=== PATIENT | female | born 1955 | race Caucasian/White ===

== ENCOUNTER 2023-01-25 12:43 | Outpatient (OUT) | payer MEDICARE, OTHER, SELFPAY ==
--- NOTE | 2023-01-25 12:57 | XR_ITS ---
The [address] [address] Patient Name: WHITNEY REYES MRN: [id number] date: 1955 Sex: F Assigned Patient Location: [facility] Current Patient Location: [facility] Accession/Order Number: [id number] Exam Date: 01/25/2023 13:08 Report Date: 01/26/2023 08:17 At the request of: JUANITO ROD Procedure: XR ribs LT min 3V w CXR1V EXAMINATION: XR ribs LT min 3V w CXR1V HISTORY: Left Rib Pain R07.81 ; pain under left breast for 2 months COMPARISON: No relevant comparison available. FINDINGS: LUNGS: No significant pulmonary parenchymal abnormalities. PLEURA: No pneumothorax, effusion, or pleural thickening. MEDIASTINUM: No visible mass or adenopathy. CARDIAC: No cardiomegaly or cardiac silhouette abnormality. RIBS: Normal. No significant arthropathy or acute abnormality. OTHER: Negative. IMPRESSION: 1. No acute cardiopulmonary process or suspicious findings. 2. No appreciable rib abnormality. Electronically authenticated by: LEXUS NEW Date: 01/26/2023 08:17
== END 2023-01-25 12:44 ==
PROVIDERS: PCP Family Medicine; Visit Provider Nurse Practitioner
DX: R07.81 Pleurodynia (principal)
CPT/HCPCS: 71101

== ENCOUNTER 2023-06-23 07:12 | Outpatient (OUT) | payer MEDICARE, OTHER, SELFPAY ==
--- NOTE | 2023-06-23 07:07 | MM_ITS ---
Patient Name WHITNEY REYES MR# Age Sex Date Time [id number] F 06/23/2023 07:08 At the Request Of DR. MURRAY OBANDO . RADIOLOGY REPORT PROCEDURE: MM TOMOSYNTHESIS SCREENING BI COMPARISON: MG MAMM SCREEN 3D [place] CAD, 06/22/2022. MG MAMM SCREEN 3D [place] CAD, 06/13/2021. INDICATIONS: screening mamm Calculator Name NCI Breast Cancer Risk Assessment Tool 5 Year Breast Cancer Risk 3.60% Lifetime Breast Cancer Risk 10.90% Personal Breast Cancer No Personal Ovarian Cancer No Treatments None Family Cancers Mother with breast cancer at age 62; Aunt-maternal with breast cancer at age ~72; Aunt-maternal with breast cancer at age ~73; Mother with uterine cancer at age 47; Father with lung cancer at age 63. LOCATION: The [facility] BREAST COMPOSITION: Scattered areas fibroglandular density. FINDINGS: DIAGNOSTIC CATEGORY 1--NEGATIVE. RIGHT BREAST: No significant suspicious finding. No significant change has occurred. LEFT BREAST: No significant suspicious finding. No significant change has occurred. RECOMMENDATIONS: ROUTINE MAMMOGRAM AND CLINICAL EVALUATION IN 12 MONTHS. PLEASE NOTE: A NORMAL MAMMOGRAM DOES NOT EXCLUDE THE POSSIBILITY OF BREAST CANCER. A CLINICALLY SUSPICIOUS PALPABLE LUMP SHOULD BE BIOPSIED. Dictated by: Attila Finnegan M.D. on 06/23/2023 at 11:03 Approved by: Attila Finnegan M.D. on 06/23/2023 at 11:06
--- NOTE | 2023-06-23 07:10 | US_ITS ---
The [address] [address] Patient Name: WHITNEY REYES MRN: [id number] date: 1955 Sex: F Assigned Patient Location: [facility] Current Patient Location: [facility] Accession/Order Number: [id number] Exam Date: 06/23/2023 07:30 Report Date: 06/23/2023 08:24 At the request of: JUANITO ROD Procedure: US abdomen complete EXAM: US abdomen complete HISTORY: . left upper quadrant pain, diarrhea . COMPARISON: None. TECHNIQUE: Grayscale and color imaging was performed FINDINGS: The body of the pancreas appears normal. The head and tail was obscured due to overlying bowel gas. The abdominal aorta is unremarkable. The liver is prominent in size measuring 19 cm. No masses are noted. Color-flow is noted in the portal and hepatic veins. Common bile duct measures 9 mm. The gallbladder is absent. Right kidney measures 9.5 x 6 x 5.3 cm and the left kidney 9.9 x 5.1 x 4.5 cm. Color-flow is noted involving both kidneys. No solid renal cortical masses or hydronephrosis is noted. The spleen is normal in size. No masses are noted. No fluid is noted within the abdomen. US/US abdomen complete IMPRESSION: 1. Absent gallbladder. 2. Common bile duct is dilated measuring 9 mm. Findings are most likely due to previous cholecystectomy. Clinical correlation is suggested. 3. The body of the pancreas appears normal. The head and tail was obscured due to overlying bowel gas. 4. The liver is prominent in size measuring 19 cm. No masses are noted. 5. The remainder of the abdomen was unremarkable. Electronically authenticated by: FRANCOIS RHODES Date: 06/23/2023 08:24
== END 2023-06-23 07:13 | disposition home or self-care (01) ==
LOC: MAMMO 07:12
PROVIDERS: PCP Family Medicine; Visit Provider Nurse Practitioner
DX: Z12.31 Encounter for screening mammogram for malignant neoplasm of breast (principal); R10.12 Left upper quadrant pain; R19.7 Diarrhea, unspecified; Z80.3 Family history of malignant neoplasm of breast; Z80.1 Family history of malignant neoplasm of trachea, bronchus and lung; Z80.8 Family history of malignant neoplasm of other organs or systems
CPT/HCPCS: 76700; 77063; 77067

== ENCOUNTER 2023-09-07 12:54 | Outpatient (OUT) | payer MEDICARE, OTHER, SELFPAY ==
--- NOTE | 2023-09-07 13:02 | XR_ITS ---
[address] [address] Patient Name: WHITNEY REYES MRN: [id number] date: 1955 Sex: F Assigned Patient Location: [facility] Current Patient Location: [facility] Accession/Order Number: [id number] Exam Date: 09/07/2023 13:18 Report Date: 09/07/2023 13:51 At the request of: JUANITO ROD Procedure: XR DEXA axial skeleton EXAMINATION: XR DEXA axial skeleton, 09/07/2023 1:18 PM EST HISTORY: E28.39 Ovarian Failure COMPARISON: 2011. TECHNIQUE: Dual-energy X-ray absorptiometry (DEXA) bone density study performed for the axial skeleton. HISTORY: E28.39 Ovarian Failure FINDINGS: Bone mineral density of the left forearm radius measures 0.688 g/sq cm. T score -04. WHO classification: Normal. Lowest bone mineral density right femoral neck measures 0.798 g/sq cm. T score -1.7. WHO classification: Osteopenia XR/XR DEXA axial skeleton IMPRESSION: Osteopenia. Moderate fracture risk Electronically authenticated by: FRANCOIS JEAN-BAPTISTE Date: 09/07/2023 13:51
--- OUTSIDE RECORDS SUMMARY | 2023-09-07 13:03 | XMS_ITS | CCD ---
Author Name Unknown Address [id number] [place] [address] Organization [facility] Care Team Providers Care Activities Concierge Name Role Phone Arpan Brock Unavailable Unavail able Arpan Brock Unavailable Unavail able LEON SOLARES Unavailable Unavailable LEON SOLARES Unavailable Unavailable Alexis Valencia Unavailable Unavailable Og Almeida Unavailable Unavailable Arpan Navarro Unavailable Unavailable Arpan Brock Unavailable Unavail able Arpan Brock Unavailable Unavail able LEON SOLARES Unavailable Unavailable LEON SOLARES Unavailable Unavailable Og Almeida Unavailable Unavailable LEON SOLARES Unavailable Unavailable Leon Solares Primary Care Provider [phone] AMILCAR YATES Admitting Unavailable AMILCAR YATES Attending Unavailable LEON SOLARES Primary Care Unavailable ZACHARY BOLES Referring Unavailab le LEON SOLARES Primary Care Unavailable AMILCAR YATES Attending Unavailable AMILCAR YATES Referring Unavailable LEON SOLARES Primary Care Unavailable Leon Solares MD Primary Care Provider [phone] IRVIN, DR LEON Jo Attending Unavailable IRVIN, DR LEON Jo Admitting Unavailable IRVIN, DR LEON Jo Primary Care Unavailable IRVIN, DR LEON Jo Consulting Unavailable JERILYN, DR FRANCOIS Lopez Consulting Unavailable IRVIN, DR LEON Jo Consulting Unavailable IRVIN, DR LEON Jo Attending Unavailable IRVIN, DR LEON Jo Admitting Unavailable IRVIN, DR LEON Jo Primary Care Unavailable JERILYN, DR FRANCOIS Lopez Consulting Unavailable IRVIN, DR LEON Jo Consulting Unavailable IRVIN, DR LEON Jo Attending Unavailable IRVIN, DR LEON Jo Admitting Unavailable IRVIN, DR LEON Jo Primary Care Unavailable SHAQ, DR LEXUS Rashid Consulting Unavailable IRVIN, DR LEON Jo Attending Unavailable IRVIN, DR LEON Jo Admitting Unavailable DR LEON SOLARES Primary Care Unavailable DR LEON SOLARES Consulting Unavailable MD Leon Solares Primary Care Provider MD Eder Gonzalez Attending Provider [phone] Eder Gonzalez Attending Unavailable Eder Gonzalez Admitting Unavailable Leon Solares Primary Care Unavailable Eder Gonzalez Unavailable LEON SOLARES Primary Care Physician Murray Ly Primary Care Physician [phone] Jaci Zelaya Primary Care Physician Leon Solares MD Primary Care Provider Murray Ly MD Primary Care Provider [phone] Garrett Dennison Attending Unavailable MD Garrett Dennison Admitting Unavailable LEON SOLARES Referring Unavailable Louise Owusu Attending Unavailable POONAM Owusu Admitting Unavailabl e LEON SOLARES Referring Unavailable Louise Owusu Attending Unavailable Murray Ly. Referring Unavailable POONAM Owusu Admitting Unavailabl e Garrett Dennison Attending Unavailable NONE, XXXX Referring Unavailable MD Garrett Dennison Admitting Unavailable Noris Solomon Attending Unavailable NathalieJaci Attending Unavailable NathalieJaci Attending Unavailable Nathalie, Jaci Abad Attending Unavailable Nathalie, Jaci L Attending Unavailable Nathalie Jaci L Referring Unavailable DO Juwan Mendez Admitting Unavailabl e Juwan Mendez Attending Unavailable Garrett Dennison Attending Unavailable Garrett Dennison Referring Unavailable Garrett Dennison Referring Unavailable Garrett Dennison Attending Unavailable MD Garrett Dennison Admitting Unavailable DO Jwuan Mendez Admitting Unavailabl e Juwan Mendez Referring Unavailable Juwan Mendez Attending Unavailable DO Juwan Mendez Admitting Unavailabl e Juwan Mendez Referring Unavailable Juwan Mendez Attending Unavailable Garrett Dennison Admitting Unavailable Garrett Dennison Attending Unavailable Nathalie, Jaci L Admitting Unavailable Nathalie, Jaci L Attending Unavailable Nathalie, Jaci L Admitting Unavailable Nathalie, Jaci L Attending Unavailable Nathalie, Jaci L Referring Unavailable Juwan Mendez Attending Unavailable Juwan Mendez Admitting Unavailable Garrett Dennison Attending Unavailable Eder Gonzalez Referring Unavailable MD Garrett Dennison Admitting Unavailable Jaci Zelaya Referring Unavailable Louise Owusu Attending Unavailable Louise Owusu Admitting Unavailable SELF, SELF Referring Unavailable SOLARES, LEON Primary Care Unavailable FOSTER, BRAULIO Attending Unavailable SOLARES, LEON Primary Care Unavailable FOSTER, BRAULIO Attending Unavailable FOSTER, BRAULIO Referring Unavailable JOSE LUIS, RONI Referring Unavailable ROSS, MURRAY Primary Care Unavailable JOSE LUIS, RONI Attending Unavailable ROSS, MURRAY Primary Care Unavailable JOSE LUIS, RONI Attending Unavailable JOSE LUIS, RONI Referring Unavailable SOLARES, LEON Primary Care Unavailable FOSTER, BRAULIO Referring Unavailable TANISHA, BRAULIO Admitting Unavailable TANISHA, BRAULIO Attending Unavailable SELF, SELF Referring Unavailable SOLARES, LEON Primary Care Unavailable FOSTER, BRAULIO Attending Unavailable SOLARES, LEON Primary Care Unavailable FOSTER, BRAULIO Attending Unavailable FOSTER, BRAULIO Referring Unavailable RAMAN SILVERIO Attending Unavailable JOSE LUIS, RONI Referring Unavailable PARRISH LOYD Attending Unavailable JOSE LUIS, RONI Referring Unavailable Allergies Allergy Classification Reported Allergen(s) Allergy Type Date of Onset Reaction(s) Facility (20 sources) amoxicillin; Translations: [amoxicillin] Drug Allergy 6 Swelling, Edema of face (finding) [facility] Repository (3 sources) meloxicam Drug Allergy 3 Diarrhea, Dyspepsia [facility] Medications Current Medications Medication Drug Class(es) Dates Sig (Normalized) Sig (Original) acetaminophen 325 mg oral tablet (20 sources) Start: 07-26-2023 take 2 tablets by mouth every four hours as needed Acetaminophen 325 MG tablet Take 2 tablets by mouth every 4 hours as needed for Mild Pain. 50 tablet 1 07/26/2023 Active Start: 07-26-2023 End: 07-27-2023 take 1 tablet by mouth every six hours acetaminophen (TYLENOL) tablet 1,000 mg Start: 11-05-2022 take 2 capsules by m outh every four hours as needed for pain Tylenol 325 mg oral capsule 650 mg = 2 cap(s), Oral, q4hr, PRN as needed for pain, Refills(s) 0 Start Date: 11/05/22 Status: Ordered Start: 01-16-2020 End: 06-28-2020 take 2 tablets by mouth every six hours as needed acetaminophen (TYLENOL) 500 MG tablet Take 1,000 mg by mouth every 6 hours as needed 0 01/16/2020 06/28/2020 Discontinued (Stop Taking at Discharge) End: 07-26-2023 take 1 tablet by mouth every four hours acetaminophen 325 MG tablet Take 1 tablet by mouth every 4 hours. 0 07/26/2023 Discontinued (Stop Taking at Discharge) acetaminophen 325 mg / oxyCODONE hydrochloride 7.5 mg oral tablet (3 sources) Opioid Agonist Start: 06-28-2020 End: 07-12-2020 take 1 tablet by mouth every six hours as needed for pain oxyCODONE-acetaminophen (PERCOCET) 7.5-325 MG per tablet Indications: Post-op pain Take 1 tablet by mouth every 6 hours as needed for Pain for up to 14 days. 40 tablet 0 06/28/2020 07/12/2020 Active Start: 06-27-2020 take 1 tablet by killian th every four hours as needed for pain 1 tablet, Oral, EVERY 4 HOURS PRN, Pain Moderate (4-6), Starting Kaylene 06/27/20 at 1414 Maximum dose of acetaminophen is 4000 mg from all sources in 24 hours. alendronic acid 70 mg oral tablet (1 source) Bisphosphonate Start: 08-03-2023 Fosamax 70 mg Tab 70 mg = 1 tab(s), Oral, q7day, # 12 tab(s), Refills(s) 3, Pharmacy: [facility]/pharmacy #[id number], 160, cm, 07/23/23 9:03:00 EST, Height/Length Dosing, 85.7, kg, 07/23/23 9:03:00 EST, Weight Dosing Start Date: 08/03/23 Status: Ordered alginic acid 200 mg / calcium carbonate 80 mg / magnesium trisilicate 20 mg / sodium bicarbonate 70 mg oral tablet (1 source) Start: 06-28-2020 calcium carbon ate (TUMS) chewable tablet 500 mg Aspir-81 (1 source) aspirin 81 mg delayed release oral tablet (20 sources) Platelet Aggregation Inhibitor, Nonsteroidal Anti-inflammatory Drug Start: 07-26-2023 End: 07-27-[address] Asp[address] tablet Take 1 tab twice a day for 30 days. This medication is for blood clot prevention. 60 tablet 0 07/26/2023 Active Start: 11-05-2022 take 1 tablet by killian th once daily aspirin 81 mg Oral EC Tab 81 mg = 1 tab(s), Oral, Daily, Refills(s) 0 Start Date: 11/05/22 Status: Ordered Start: 06-27-2020 take 81 mg by mouth once daily 81 mg, Oral, DAILY, First dose on Wed06/27/20 at 1430 Start: 09-28-2018 take 81 mg by mouth once daily Aspirin Active 81 MG PO Daily September 28, 2018 12:00am take 1 tablet by killian th every twenty-four hours Alfred Aspirin 325 MG 1 tablet Orally Once a day Active take 1 tablet by killian th once daily aspirin 81 MG tablet Take 81 mg by mouth daily 0 Active aspirin/placebo, M-1657, 81 mg tablet (5 sources) take 1 tablet by mouth once daily aspirin/placebo, M-1657, 81 mg tablet Take 1 tablet by mouth daily. 0 Active azelastine hydrochloride 0.206 mg/actuat metered dose nasal spray (4 sources) Histamine-1 Receptor Antagonist Start: 020 2 spray, NOT APPLICABLE, 2 TIMES DAILY, First dose on Wed06/27/20 at 1430 azelastine HCl 0 .15 % SOLN 2 sprays by NOT APPLICABLE route 2 times daily 0 Active Calcium (1 source) Phosphate Binder, Calcium Calcium Active calcium carbonate 1500 mg oral tablet (19 sources) Start: 11-05-2022 calcium (as carbonate) 600 mg oral tablet 1,200 mg = 2 tab(s), Oral, Daily, Refills(s) 0 Start Date: 11/05/22 Status: Ordered Start: 06-27-2020 take 500 mg by mouth once omero y 500 mg, Oral, DAILY, First dose on Wed06/27/20 at 1430 calcium carbonat e (OSCAL) 500 MG TABS tablet Take 1,200 mg by mouth daily 0 Active calcium carbonat e (OSCAL) 500 MG TABS tablet Take 1,200 mg by mouth daily 0 Active calcium carbonate 1500 mg / cholecalciferol 200 unt oral capsule (1 source) Vitamin D Start: 09-28-2018 take 1 tablet by mouth once daily Calcium Carbonate-Vitamin D3 (Calcium 600 + D(3)) 600 mg calcium- 200 unit Capsule Active 1 TAB PO Daily September 28, 2018 12:00am Calcium Carbonate-Vit D-Min (CALCIUM 1200 PO) (7 sources) Calcium Carbonat e-Vit D-Min (CALCIUM 1200 PO) Take by mouth 2 times daily. 0 Active Calcium Carbonat e-Vit D-Min (CALCIUM 1200 PO) Take by mouth. 0 Active celecoxib 200 mg oral capsule (20 sources) Nonsteroidal Anti-inflammatory Drug Start: 11-05-2022 End: 09-06-2023 take 1 capsule by mouth twice daily Celecoxib 200 MG capsule Take 1 capsule by mouth 2 times daily. 84 capsule 0 07/26/2023 09/06/2023 Active Start: 11-05-2022 End: 06-28-2020 take 1 capsule by mouth twice daily celecoxib 200 mg Cap 200 mg = 1 cap(s), Oral, BID, Refills(s) 0 Start Date: 11/05/22 Status: Ordered Start: 09-28-2018 take 200 mg by mouth once omero y Celecoxib Active 200 MG PO Daily September 28, 2018 12:00am End: 07-26-2023 take 1 capsule by mouth twice daily celecoxib 200 MG capsule Take 1 capsule by mouth 2 times daily. 0 07/26/2023 Discontinued (Stop Taking at Discharge) cephalexin 500 mg oral capsule (1 source) Cephalosporin Antibacterial Start: 07-26-2023 End: 08-02-2023 take 1 capsule by mouth every eight hours cephALEXin 500 MG capsule Take 1 capsule by mouth every 8 hours for 7 days. Start 6 hours after last dose of iv antibiotics. 21 capsule 0 07/26/2023 08/02/2023 Active Cranberry preparation (20 sources) Non-Standardized Food Allergenic Extract, Non-Standardized Plant Allergenic Extract Start: 11-05-2022 cranberry See Instructions, Refill(s) 0, 500 mg daily Start Date: 11/05/22 Status: Ordered End: 07-26-2023 CRANBERRY PO Take by mouth d aily. 0 07/26/2023 Discontinued (Stop Taking at Discharge) Cranberry Active CRANBERRY PO Richar e by mouth. 0 Active Cranberry 500 MG TABS Take by mouth 0 Active cyclobenzaprine hydrochloride 10 mg oral tablet (6 sources) Muscle Relaxant Start: 06-22-2023 take 1 tablet by mouth three times daily as needed for muscle spasms cyclobenzaprine 10 mg Tab 10 mg = 1 tab(s), Oral, TID, PRN for spasm, # 30 tab(s), Refills(s) 0, Pharmacy: [facility]/pharmacy #[id number], 160, cm, 06/22/23 9:45:00 EST, Height/Length Dosing, 88.5, kg, 06/22/23 9:45:00 EST, Weight Dosing Start Date: 06/22/23 Status: Ordered Start: 01-22-2023 take 1 tablet by killian three times daily as needed for muscle spasms cyclobenzaprine 10 mg Tab 10 mg = 1 tab(s), Oral, TID, PRN for spasm, # 30 tab(s), Refills(s) 0, Pharmacy: [facility]/pharmacy #[id number], 160, cm, 01/22/23 10:29:00 EDT, Height/Length Dosing, 98.8, kg, 01/22/23 10:29:00 EDT, Weight Dosing Start Date: 01/22/23 Status: Ordered diphenhydrAMINE hydrochloride 25 mg oral tablet (8 sources) Histamine-1 Receptor Antagonist take 1 tablet by mouth at bedtime as needed diphenhydrAMINE 25 MG tablet Take 1 tablet by mouth at bedtime as needed. 0 Active DiphenhydrAMINE Citrate Active docusate sodium 100 mg oral capsule (20 sources) Start: 07-26-2023 End: 07-27-2023 take 1 capsule by mouth twice daily Docusate 100 MG capsule Take 1 capsule by mouth 2 times daily. 60 capsule 0 07/26/2023 Active Start: 11-05-2022 docusate See I nstructions, twice daily, Refills(s) 0 Start Date: 11/05/22 Status: Ordered Start: 06-27-2020 End: 07-26-2023 take 100 mg by mouth once daily 100 mg, Oral, DAILY, First dose on Kaylene 06/27/20 at 1430 Do not crush or break. Estradiol (20 sources) Estrogen Start: 11-05-2022 estradiol See Instructions, once weekly, Refills(s) 0 Start Date: 11/05/22 Status: Ordered Start: 06-19-2020 0.5 g, Vaginal , TWICE WEEKLY (Once per day on Mon Wed), First dose on Kaylene 06/27/20 at 1430 estradiol 0.1 MG /GM cream Insert vaginally once a week. 0 Active take 1 tablet by killian th every twenty-four hours Estradiol 1 MG 1 tablet Orally Once a day Active 2 ml famotidine 10 mg/ml injection (1 source) Histamine-2 Receptor Antagonist Start: 06-28-2020 famotidine (PEPCID) injection 20 mg 72 hr fentaNYL 0.025 mg/hr transdermal system (3 sources) Opioid Agonist Start: 06-27-2020 End: 07-14-2020 fentaNYL (DURAGESIC) 25 MCG/HR Indications: Post-op pain Place 1 patch onto the skin every 72 hours for 14 days. 5 patch 0 06/30/2020 07/14/2020 Active gabapentin 300 mg oral capsule (6 sources) Anti-epileptic Agent Start: 04-08-2023 take 1 capsule by mouth once at bedtime, then take 2 capsules by mouth three times daily gabapentin 300 mg Cap See Instructions, 1 cap(s) Oral Bedtime, increase per titration schedule up to 2 caps TID, # 180 cap(s), Refills(s) 0, Pharmacy: [facility]/pharmacy #[id number], 160, cm, 04/02/23 9:46:00 EDT, Height/Length Dosing, 95.7, kg, 02/19/23 10:50:00 EDT, Weight Dosing Start Date: 04/08/23 Status: Ordered Start: 01-19-2020 take 300 mg by mouth three times daily 300 mg, Oral, 3 TIMES DAILY, First dose on Kaylene 06/27/20 at 1430 take 1 capsule by mo [facility] three times daily glucosamine sulfate 500 mg oral tablet (1 source) Start: 09-28-2018 Glucosamine Alcazar lfate (Glucosamine) 500 mg Tablet Active 1600 MG PO Daily September 28, 2018 12:00am 500 ml glucose 50 mg/ml / potassium chloride 0.02 meq/ml / sodium chloride 4.5 mg/ml injection (1 source) Start: 06-27-2020 Intravenous, a t 100 mL/hr, CONTINUOUS, Starting [facility] 06/27/20 at 1430, Post-op loperamide hydrochloride 2 mg oral capsule (2 sources) Opioid Agonist Start: 08-08-2019 take 1 capsule by mouth every twelve hours Start: 07-17-2019 take 1 capsule by mouth once d aily in the morning loratadine 10 mg oral tablet (11 sources) Start: 11-05-2022 take 10 mg by mouth once daily loratadine 10 mg, Oral, Daily, Refills(s) 0 Start Date: 11/05/22 Status: Ordered Magnesium (1 source) Magnesium 400 MG tablet Take by mouth daily. 0 Active magnesium oxide 400 mg oral tablet (15 sources) Start: 11-05-2022 magnesium oxid e 400 mg Tab See Instructions, once daily, Refills(s) 0 Start Date: 11/05/22 Status: Ordered Melatonin (20 sources) Start: 11-05-2022 melatonin See Instructions, nightly, Refills(s) 0 Start Date: 11/05/22 Status: Ordered Melatonin 10 MG tablet Take by mouth. 0 Active End: 06-28-2020 take 1 capsule by mouth once daily melatonin 10 MG CAPS capsule Take 10 mg by mouth nightly 0 06/28/2020 Discontinued (Stop Taking at Discharge) morphine (PF) injection 2 mg (1 source) Start: 06-27-2020 morphine (PF) injection 2 mg omeprazole 20 mg delayed release oral capsule (2 sources) Proton Pump Inhibitor Start: 07-26-2023 take 1 capsule by mouth once daily omeprazole [address] capsule Take 1 capsule by mouth daily. 30 capsule 0 07/26/2023 Active potassium 99 mg extended release oral tablet (1 source) Potassium 99 MG tablet Take by mouth daily. 0 Active potassium chloride 1.33 meq oral tablet (15 sources) Start: 11-05-2022 take 1 tablet by mouth once daily potassium chloride 99 mg oral tablet 99 mg = 1 tab(s), Oral, Daily, # 100 tab(s), Refills(s) 0 Start Date: 11/05/22 Status: Ordered Promethazine (1 source) Phenothiazine Start: 06-27-2020 promethazine (PHENERGAN) tablet 12.5 mg 3 ml sodium chloride 9 mg/ml injection (2 sources) Start: 06-27-2020 10 mL, Intravenous, EVERY 12 HOURS SCHEDULED (2 times per day), First dose on Kaylene 06/27/20 at 2100, Post-op Start: 06-27-2020 take 10 mL intravenous route o nce 10 mL, Intravenous, PRN, Line Care, Starting Kaylene 06/27/20 at 1414 After every IV line use Post-op sulfamethoxazole 800 mg / trimethoprim 160 mg oral tablet (3 sources) Dihydrofolate Reductase Inhibitor Antibacterial, Sulfonamide Antimicrobial Start: 06-28-2020 End: 07-05-2020 take 1 tablet by mouth every twelve hours sulfamethoxazole-trimethoprim (BACTRIM DS;SEPTRA DS) 800-160 MG per tablet Take 1 tablet by mouth every 12 hours for 7 days 14 tablet 0 06/28/2020 07/05/2020 Active therapeutic multivitamin-[employer] field examiner als tablet (2 sources) Start: 07-26-2023 take 1 tablet by mouth at bedtime therapeutic multivitamin-minerals tablet Take 1 tablet by mouth at bedtime. 30 tablet 0 07/26/2023 Active tiZANidine 2 mg oral tablet (4 sources) Central alpha-2 Adrenergic Agonist Start: 06-27-2020 take 2 mg by mouth once daily 2 mg, Oral, NIGHTLY, First dose on Kaylene 06/27/20 at 2100 Completed/Discontinued Medications Medication Drug Class(es) Dates Sig (Normalized) Sig (Original) bisacodyl 10 mg rectal suppository (1 source) Stimulant Laxative Start: 07-26-2023 End: 07-27-2023 bisacodyl (DULCOLAX) suppository 10 mg calcium chloride 0.0014 meq/ml / potassium chloride 0.004 meq/ml / sodium chloride 0.103 meq/ml / sodium lactate 0.028 meq/ml injectable solution (5 sources) Start: 07-26-2023 End: 07-27-2023 Lactated ringers IV solution 500 mL Start: 06-27-2020 End: 06-27-2020 lactated ringers infusion ceFAZolin 2000 mg injection (1 source) Cephalosporin Antibacterial Start: 07-26-2023 End: 07-27-2023 take 2 g intravenously every eight hours ceFAZolin (ANCEF) 2 g in dextrose 100 mL premix IVPB chondroitin sulfates 400 mg / glucosamine sulfate 500 mg oral tablet (2 sources) End: 06-28-2020 take 1 tablet by mouth once daily glucosamine-chond roitin 500-400 MG tablet Take 1 tablet by mouth daily 0 06/28/2020 Discontinued (Stop Taking at Discharge) dexamethasone phosphate 10 mg/ml injectable solution (1 source) Corticosteroid Start: 07-27-2023 End: 07-27-2023 take 10 mg intravenously every twenty-four hours dexAMETHasone (DECADRON) injection 10 mg docusate sodium 50 mg / sennosides, correction 8.6 mg oral tablet (2 sources) Start: 07-26-2023 End: 07-27-2023 senna-docusate (SENOKOT-S) 8.6-50 MG per tablet 2 tablet Start: 06-27-2020 take 1 tablet by killian th twice daily 1 tablet, Oral, 2 TIMES DAILY, First dose on Kaylene 06/27/20 at 1430, Post-op 100 ml gentamicin 0.8 mg/ml injection (1 source) Start: 06-27-2020 End: 06-27-2020 gentamicin (GARAMYCIN) IVPB 80 mg 1 ml HYDROmorphone hydrochloride 1 mg/ml cartridge (2 sources) Opioid Agonist Start: 07-26-2023 End: 07-27-2023 take 0.5 mg intravenously every four hours as needed HYDROmorphone (DILAUDID) injection 0.5 mg Start: 06-27-2020 End: 06-27-2020 HYDROmorphone (DILAUDID) inj ection 0.5 mg 1 ml ketorolac tromethamine 30 mg/ml cartridge (1 source) Nonsteroidal Anti-inflammatory Drug, Cyclooxygenase Inhibitor Start: 07-26-2023 End: 07-27-2023 Ketorolac (TORADOL) injection 7.5 mg 10 ml lidocaine hydrochloride 10 mg/ml injection (2 sources) Antiarrhythmic, Amide Local Anesthetic Start: 07-15-2022 End: 07-15-2022 lidocaine 1% (PF) (XYLOCAINE MPF) 1 % injection 5 mL meloxicam 15 mg oral tablet (4 sources) Nonsteroidal Anti-inflammatory Drug Start: 03-03-2023 End: 07-26-2023 take 1 tablet by mouth once daily at mealtime Meloxicam 15 MG tablet Take 1 tablet by mouth daily. Take with food 30 tablet 1 03/03/2023 07/26/2023 Discontinued (Stop Taking at Discharge) 1 ml meperidine hydrochloride 25 mg/ml cartridge (1 source) Opioid Agonist Start: 06-27-2020 End: 06-27-2020 meperidine (DEMEROL) injection 12.5 mg metoprolol tartrate 25 mg oral tablet (20 sources) beta-Adrenergic Johnathon Start: 08-18-2023 take 0.5 tablet by mouth twice daily Lopressor 25 mg oral tablet 12.5 mg = 0.5 tab(s), Oral, BID, TAKE 1/2 TABLET BY MOUTH TWICE DAILY, # 90 tab(s), Refills(s) 1, Pharmacy: [facility], 160, cm, 07/23/23 9:03:00 EST, Height/Length Dosing, 85.7, kg, 07/23/23 9:03:00 EST, Weight Dosing Start Date: 08/18/23 Status: Ordered Start: 11-05-2022 take 0.5 tablet by m outh twice daily Lopressor 25 mg oral tablet TAKE 1/2 TABLET BY MOUTH TWICE DAILY Start Date: 11/05/22 Status: Ordered Start: 06-05-2022 End: 07-27-2023 take 1 tablet by mouth twice daily, then take 0.5 tablet by mouth twice daily metoprolol 25 MG tab regular release Take 1 tablet by mouth 2 times daily. Takes half of tablet twice a day 0 06/05/2022 Active Start: 06-27-2020 take 12.5 mg by mout h twice daily 12.5 mg, Oral, 2 TIMES DAILY, First dose on Kaylene 06/27/20 at 1430 Do not crush or chew. Start: 09-28-2018 take 12.5 mg by mout h twice daily Metoprolol Tartrate Active 12.5 MG PO Twice daily September 28, 2018 12:00am Metoprolol Succi jose m Active metoprolol succi jose m (TOPROL XL) 25 MG extended release tablet Take 12.5 mg by mouth 2 times daily 0 Active 2 ml ondansetron 2 mg/ml injection (1 source) Serotonin-3 Receptor Antagonist Start: 07-26-2023 End: 07-27-2023 take 4 mg intravenously every four hours as needed Ondansetron 4mg/2ml (ZOFRAN) injection 4 mg oxyCODONE hydrochloride 5 mg oral tablet (2 sources) Opioid Agonist Start: 07-26-2023 End: 07-27-2023 take 5-10 mg by mouth every four hours as needed oxyCODONE (ROXICODONE) tablet 5-10 mg Start: 07-26-2023 End: 08-02-2023 take 1-2 tablets by mouth every four to six hours as needed for pain oxyCODONE 5 MG tablet Indications: Acute postoperative pain of left knee Take 1-2 tabs po q 4-6 hours prn pain. Wean as tolerated. 30 tablet 0 07/26/2023 08/02/2023 Active pantoprazole 40 mg delayed release oral tablet (1 source) Proton Pump Inhibitor Start: 07-26-2023 End: 07-27-2023 take 40 mg by mouth once daily 40 mg, Oral, DAILY EARLY EVENING, First dose on 07/26/23 at 1800, Until Discontinued Swallow whole; do not crush or chew. Indications: Inpt Stress Ulcer Prophylaxis pregabalin 50 mg oral capsule (7 sources) Start: 02-19-2023 End: 07-27-2023 take 1 capsule by mouth at bedtime Pregabalin 50 MG capsule Take 1 capsule by mouth at bedtime. 0 02/19/2023 07/27/2023 Discontinued (Stop Taking at Discharge) ROPivacaine (NAROPIN) 0.2% 1,500 mg, On-Q Pump 1 Each (1 source) Start: 07-26-2023 End: 07-27-2023 ROPivacaine (NAROPIN) 0.2% 1,500 mg, On-Q Pump 1 Each ROPivacaine (NAROPIN) 1 % 400 mg, EPINEPHrine PF (ADRENALIN) 1 MG/ML 1 mg, Ketorolac (TORADOL) 30 MG/ML 30 mg, cloNIDine 100 MCG/ML 183 mcg, Sodium chloride 0.9% 45 mL in viaflex container 1 Each 88.83 mL (total volume) (1 source) Start: 07-26-2023 End: 07-26-2023 ROPivacaine (NAROPIN) 1 % 400 mg, EPINEPHrine PF (ADRENALIN) 1 MG/ML 1 mg, Ketorolac (TORADOL) 30 MG/ML 30 mg, cloNIDine 100 MCG/ML 183 mcg, Sodium chloride 0.9% 45 mL in viaflex container 1 Each 88.83 mL (total volume) sodium phosphate, dibasic 35.5 mg/ml / sodium phosphate, monobasic 96.4 mg/ml enema (1 source) Start: 07-26-2023 End: 07-27-2023 sodium phosphate w/sodium biphosphate (FLEETS) enema 1 enema tranexamic acid 650 mg oral tablet (1 source) Antifibrinolytic Agent Start: 07-26-2023 End: 07-26-2023 tranexamic acid (LYSTEDA) tablet 1,950 mg 1 ml triamcinolone acetonide 40 mg/ml prefilled syringe (2 sources) Corticosteroid Start: 07-15-2022 End: 07-15-2022 triamcinolone (KENALOG-40) injection 1 mL vancomycin (VANCOCIN) 1,500 mg in dextrose 5 % 500 mL IVPB (1 source) Start: 06-27-2020 End: 06-28-2020 1,500 mg, Intravenous, EVERY 12 HOURS, 2 doses, First dose on Wed06/27/20 at 2100, Last dose on Wed06/28/20 at 0900, Post-op zolpidem tartrate 5 mg oral tablet (1 source) gamma-Aminobutyric Acid-ergic Agonist Start: 07-26-2023 End: 07-27-2023 Zolpidem (AMBIEN) tablet 5 mg Problems Active Problems Problem Classification Problem Date Documented Da te Episodic/Chronic Abdominal pain (4 sources) Left upper quadrant pain 06-22-2023 Episodic Complication of device; implant or graft (8 sources) Joint pain; Translations: [Pain due to internal orthopedic prosthetic devices, implants and grafts, sequela] Onset: 3 Episodic Diabetes mellitus without complication (6 sources) Prediabetes; Translations: [Prediabetes] Onset: 9 06-20-2020 Episodic Diseases of white blood cells (3 sources) Leukocytosis 07-12-2023 Chronic Disorders of lipid metabolism (7 sources) Pure hypercholesterolemia; Translations: [Pure hypercholesterolemia, unspecified] Onset: 9 06-20-2020 Chronic Diverticulosis and diverticulitis (1 source) Diverticular disease of colon; Translations: [Diverticulosis of intestine, part unspecified, without perforation or abscess without bleeding] Chronic Essential hypertension (20 sources) Essential hypertension; Translations: [Essential (primary) hypertension] Onset: 9 06-20-2020 Chronic Genitourinary symptoms and ill-defined conditions (2 sources) Urge incontinence of urine; Translations: [Urge incontinence] Onset: 0 06-24-2020 Chronic Intestinal infection (1 source) Clostridial enteric disease; Translations: [Enterocolitis due to Clostridium difficile, not specified as recurrent] Episodic Malaise and fatigue (4 sources) Other fatigue; Translations: [OTHER FATIGUE] Onset: 3 Episodic Menopausal disorders (5 sources) Menopausal and postmenopausal disorders; Translations: [Atrophy of vagina] Onset: 9 06-24-2020 Chronic Noninfectious gastroenteritis (1 source) Lymphocytic colitis; Translations: [Lymphocytic colitis] Chronic Noninfectious gastroenteritis (8 sources) Colitis; Translations: [Noninfectious gastroenteritis] Onset: 8 06-24-2020 Episodic Osteoarthritis (4 sources) Osteoarthritis of knee; Translations: [Osteoarthritis] Onset: 9 06-24-2020 Chronic Osteoporosis (2 sources) Senile osteoporosis; Translations: [Age-related osteoporosis without current pathological fracture] Onset: 9 06-24-2020 Chronic Other acquired deformities (5 sources) Lumbar spondylolisthesis; Translations: [Spondylolisthesis, lumbar region] Onset: 9 06-24-2020 Other aftercare (3 sources) 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; 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)] Onset: 3 07-26-2023 Episodic Other connective tissue disease (3 sources) History of revision of left total knee arthroplasty; Translations: [Presence of left artificial knee joint] Onset: 3 07-26-2023 Chronic Other connective tissue disease (2 sources) Presence of left artificial knee joint; Translations: [Presence of left artificial knee joint] Onset: 4 Chronic Other connective tissue disease (1 source) Pain in left leg; Translations: [PAIN IN LEFT LEG] Onset: 3 Episodic Other connective tissue disease (1 source) Arthrodesis status Episodic Other connective tissue disease (15 sources) H/O: osteoarthritis 11-05-2022 Episodic Other connective tissue disease (9 sources) Spasm 01-22-2023 Episodic Other connective tissue disease (2 sources) Synovial plica syndrome of left knee; Translations: [Plica syndrome, left knee] Onset: 9 06-24-2020 Other gastrointestinal disorders (1 source) Diarrhea; Translations: [Diarrhea, unspecified] Episodic Other gastrointestinal disorders (15 sources) History of gastroesophageal reflux disease 11-05-2022 Episodic Other gastrointestinal disorders (4 sources) Liquid stool 06-22-2023 Episodic Other lower respiratory disease (9 sources) Rib pain 01-22-2023 Episodic Other nervous system disorders (3 sources) Other acute postprocedural pain; Translations: [Pain in joint, lower leg] Onset: 3 07-26-2023 Episodic Other non-traumatic joint disorders (4 sources) Pain in left knee; Translations: [Pain in joint, lower leg] Onset: 3 02-18-2023 Episodic Other nutritional; endocrine; and metabolic disorders (2 sources) Obesity; Translations: [Class 2 obesity in adult] Onset: 0 06-24-2020 Chronic Other nutritional; endocrine; and metabolic disorders (1 source) Metabolic syndrome; Translations: [METABOLIC SYNDROME] Onset: 3 Chronic Other nutritional; endocrine; and metabolic disorders (3 sources) Body mass index 30+ - obesity 07-12-2023 Chronic Other nutritional; endocrine; and metabolic disorders (3 sources) Obesity caused by energy imbalance; Translations: [Other obesity due to excess calories] Onset: 3 07-26-2023 Chronic Other screening for suspected conditions (not mental disorders or infectious disease) (9 sources) Encounter for screening mammogram for malignant neoplasm of breast; Translations: [Abnormal finding of blood chemistry, unspecified] Onset: 2 Episodic Residual codes; unclassified (1 source) Pain; Translations: [Pain] Episodic Spondylosis; intervertebral disc disorders; other back problems (7 sources) Spondylosis without myelopathy or radiculopathy, lumbar region; Translations: [Inflammation of sacroiliac joint] Onset: 3 Chronic Spondylosis; intervertebral disc disorders; other back problems (20 sources) Dorsalgia, unspecified; Translations: [Intervertebral disc disorders with radiculopathy, lumbar region] Onset: 3 Episodic Unclassified (1 source) Preprocedural examination done; Translations: [Pre-op examination] Unclassified (2 sources) Long-term current use of aspirin; Translations: [longterm (current) use of aspirin] Onset: 9 06-24-2020 Unclassified (6 sources) 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; Translations: [Encounter for screening for malignant neoplasm] Onset: 9 06-24-2020 Unclassified (1 source) Low back pain, unspecified; Translations: [Low back pain, unspecified] Onset: 3 Past or Other Problems Problem Classification Problem Date Documented Da te Episodic/Chronic Fever of unknown origin (2 sources) Fever; Translations: [Fever, unspecified] Onset: 02-16-2020 06-24-2020 Episodic Genitourinary symptoms and ill-defined conditions (2 sources) Urgent desire to urinate; Translations: [Urinary urgency] Onset: 02-13-2020 06-24-2020 Episodic Joint disorders and dislocations; trauma-related (2 sources) Tear of medial meniscus of knee; Translations: [Other tear of medial meniscus, current injury, left knee, initial encounter] Onset: 12-21-2018 06-24-2020 Episodic Other connective tissue disease (2 sources) Pain in left lower limb; Translations: [Pain in left leg] Onset: 12-28-2018 06-24-2020 Episodic Other gastrointestinal disorders (2 sources) Disorder of digestive tract; Translations: [Acquired absence of other specified parts of digestive tract] Onset: 12-21-2018 06-24-2020 Episodic Other nervous system disorders (1 source) Postoperative pain ; Translations: [Post-op pain] Episodic Residual codes; unclassified (2 sources) Family history of breast cancer; Translations: [Family history of malignant neoplasm of breast] Onset: 06-13-2019 06-24-2020 Episodic Residual codes; unclassified (2 sources) Family history: neoplasm - trachea/bronchus/tali ng; Translations: [Family history of malignant neoplasm of trachea, bronchus and lung] Onset: 06-13-2019 06-24-2020 Episodic Residual codes; unclassified (1 source) Family history of malignant neoplasm of breast; Translations: [FAMILY HX MALIG NEOPLASM OF BREAST] Onset: 06-27-2022 Episodic Residual codes; unclassified (1 source) Family history of malignant neoplasm of trachea, bronchus and lung; Translations: [FAM HX MALIG NEOPLSM TRACH BRON LNG] Onset: 06-27-2022 Episodic Residual codes; unclassified (1 source) Family history of malignant neoplasm of other organs or systems; Translations: [FAM HX MALIG NEOPLASM OTH ORGN/SYS] Onset: 06-27-2022 Episodic Urinary tract infections (2 sources) Urinary tract infectious disease; Translations: [Urinary tract infection, site not specified] Onset: 03-04-2020 06-24-2020 Episodic Results Test Name Value Interpretation Reference Range Facility *[id number] 08-25-2023 RESULT 1 Comment [facility] Comment on above: Result Comment: No y east or mold isolated after 4 weeks. PERFORMED AT [facility] Performed By: #### U NEGRA, UMAC #### Testing performed at [place] [id number] RESULT 1 Comment [facility] Comment on above: Result Comment: No y east or mold isolated after 4 weeks. PERFORMED AT [facility] Performed By: #### U NEGRA, UMAC #### [place] [address] RESULT 1 Comment [facility] Comment on above: Result Comment: No y east or mold isolated after 4 weeks. PERFORMED AT [facility] Performed By: #### LU VIERA #### [place] [address] FUNGUS CULTUREon 08-25-2023 FUNGUS CULTURE Final report [facility] Comment on above: Result Comment: PERF ORMED AT [facility] Performed By: #### U NEGRA, UMAC #### [place] [address] FUNGUS CULTURE Final report [facility] Comment on above: Result Comment: PERF ORMED AT [facility] Performed By: #### U NEGRA, UMAC #### [place] [address] Performed By: #### LU VIERA #### Testing performed at [address] [address] Family Medicine Office/Clini c Noteon 08-05-2023 Family Medicine Office/Clinic Note HPI Staff Lilo is a 67 year old female presenting for surgical clearnace Pt is having a Total left Knee Revision on 07/27/[address] Garay at [facility] in [place]. Pre testing done 07/01/23 Labs pt told something in urine, and high WBC. History of Present Illness pt presents today for presurgical clearance Review of Systems PHQ Score Initial Depression Screen Score: 0 SCORE ROS - Provider Constitutional: no fever, no chills, no sweats, no fatigue Respiratory: no shortness of breath, no cough, no orthopnea, no wheezing. Cardiovascular: no chest pain, no palpitations, no edema. Neurologic: no headache, no dizziness, no numbness, no weakness. Physical Exam Vitals & Measurements HR: 50(Peripheral) RR: 16 BP: 128/82 SpO2: 98% HT: 63 in HT: 160 cm WT: 88 kg WT: 193.6 lb BMI: 34.38 General: alert, no acute distress ENMT: oral mucosa moist, no pharyngeal erythema or exudate Cardiovascular: regular rate and rhythm, normal peripheral perfusion Respiratory: Lungs CTA, respirations non labored Extremities: no deformity, no trauma Neurological: oriented x 4, LOC appropriate for age, CN II-XII intact, motor strength equal & normal bilaterally, speech normal Assessment/Plan 1. Encounter for preoperative examination for general surgical procedure (Z01.818: Encounter for other preprocedural examination) pt presents today for surgical clearance visit. all results were reviewed. Surgeon was concerned about elevated WBC's so we checked another CBC in office today. also repeated urinalysis in office today u/a negative today. provider will complete surgical clearance letter after repeat CBC results have been reviewed and fax letter to surgeon. pt is feeling well. will have right knee revision by Dr. Garay on 07/27. all questions answered. RTC as needed Ordered: CBC w/ Auto Diff Lab Specimen Collect [id number] Urine Dipstick POC 2. Elevated WBC count (D72.829: Elevated white blood cell count, unspecified) CBC drawn in office today. Ordered: CBC w/ Auto Diff Lab Specimen Collect [id number] Urine Dipstick POC 3. BMI 34.0-34.9,adult (Z68.34: Body mass index [BMI] 34.0-34.9, adult) BMI education complete Follow-up No qualifying data available Problem List/Past Medical History Ongoing BMI 34.0-34.9,adult Elevated WBC count Encounter for preoperative examination for general surgical procedure H/O gastroesophageal reflux (GERD) H/O: osteoarthritis HTN (hypertension) Left upper quadrant pain Lower back pain Muscle spasm Rib pain on left side Sacroiliitis Watery stools Historical No qualifying data Procedure/Surgical History Injection of sacroiliac joint using fluoroscopic guidance (05/12/2023), Injection of sacroiliac joint using fluoroscopic guidance (01/20/2023), Injection of facet joint using fluoroscopic guidance (11/18/2022), History of left knee replacement (2021), Cataract surgery (2020), History of spinal fusion (2020), History of carpal tunnel decompression (2018), History of urinary bladder surgery (2011), Abdominal hysterectomy (1998), Arthroscopy of knee (1998), History of repair of rotator cuff (1986), Stripping of vein (1985), Appendectomy (1983), Cholecystectomy (1983), History of tonsillectomy (1957). Medications aspirin 81 mg Oral EC Tab, 81 mg= 1 tab(s), Oral, Daily calcium (as carbonate) 600 mg oral tablet, 1200 mg= 2 tab(s), Oral, Daily celecoxib 200 mg Cap, 200 mg= 1 cap(s), Oral, BID cranberry, See Instructions cyclobenzaprine 10 mg Tab, 10 mg= 1 tab(s), Oral, TID, PRN, Not taking docusate, See Instructions estradiol, See Instructions Lopressor 25 mg oral tablet magnesium oxide 400 mg Tab, See Instructions melatonin, See Instructions potassium chloride 99 mg oral tablet, 99 mg= 1 tab(s), Oral, Daily Tylenol 325 mg oral capsule, 650 mg= 2 cap(s), Oral, q4hr, PRN Allergies amoxicillin (Edema of face) Social History Alcohol - No Risk, 11/05/2022 Current, 1-2 times per week, 11/05/2022 Substance Abuse - Denies Substance Abuse, 11/05/2022 Household substance abuse concerns: No., 01/22/2023 Tobacco - Denies Tobacco Use, 11/05/2022 Never (less than 100 in lifetime) Tobacco Use:. Never Smokeless Tobacco Use:. Household tobacco concerns: No., 06/22/2023 Never (less than 100 in lifetime) Tobacco Use:. Never Smokeless Tobacco Use:. Household tobacco concerns: No., 01/22/2023 Family History Acute myocardial infarction: Father. Diabetes mellitus type 2: Father and Sister. Hyperlipidemia: Father. Hypertension: Father. Lung cancer: Mother and Father. Primary malignant neoplasm of female breast: Mother. Immunizations Vaccine Date Status Comments zoster vaccine, inactivated 06/16/2023 Recorded influenza virus vaccine, inactivated 06/16/2023 Recorded zoster vaccine live 02/12/2023 Recorded SARS-CoV-2 (COVID-19) [id number] 02/12/2023 Recorded influenza virus vaccine, inactivated 06/08/2022 Recorded SARS-CoV-2 (COVID-19) [id number] 06/08 (more content not included)... Normal [facility] Comment on above: Result Comment: Elec tronically Signed By: Jaci Tee\.br\Date and Time Signed: 08/05/23 09:19 EST AFB SMEARon 07-28-2023 ACID FAST SMEAR Negative Normal [facility] Comment on above: Result Comment: PERF ORMED AT [facility] Performed By: #### U NEGRA, UMAC #### Testing performed at [address] [address] CBCon 07-27-2023 ABSOLUTE BAS 0.0 10*3/uL Normal 0.0-0.2 [facility] Comment on above: Performed By: #### A CBC, RENF #### Testing performed at [address] [address] ABSOLUTE EOS 0.0 10*3/uL Normal 0.0-0.7 [facility] Comment on above: Performed By: #### A CBC, RENF #### Testing performed at [address] [address] ABSOLUTE NEUTROPHIL COUNT 10.0 10*3/uL High 1.4-6.5 [facility] Comment on above: Performed By: #### A CBC, RENF #### Testing performed at [address] [address] Basophils/100 WBC (Bld) 0.1 % Normal 0.0-2.0 [facility] Comment on above: Performed By: #### A CBC, RENF #### Testing performed at [address] [address] DTYPE AUTO DIFF Normal [facility] Comment on above: Performed By: #### A CBC, RENF #### Testing performed at [address] [place] [address] Eosinophils/100 WBC (Bld) 0.0 % Normal 0.0-11.0 [facility] Comment on above: Performed By: #### A CBC, RENF #### Testing performed at [address] [place] [address] Lymphocytes (Bld) [#/Vol] 0.9 10*3/uL Low 1.2-3.4 [facility] Comment on above: Performed By: #### A CBC, RENF #### Testing performed at [address] [place] [address] Lymphocytes/100 WBC (Bld) 7.9 % Low 20.0-55.0 [facility] Comment on above: Performed By: #### A CBC, RENF #### Testing performed at [address] [address] Monocytes (Bld) [#/Vol] 0.4 10*3/uL Normal 0.0-0.7 [facility] Comment on above: Performed By: #### A CBC, RENF #### Testing performed at [address] [place] [address] Monocytes/100 WBC (Bld) 3.7 % Normal 0.0-10.0 [facility] Comment on above: Performed By: #### A CBC, RENF #### Testing performed at [address] [place] [address] Neutrophils/100 WBC (Bld) 88.3 % High 37.0-75.0 [facility] Comment on above: Performed By: #### A CBC, RENF #### Testing performed at [address] [place] [address] Erythrocyte distribution width (RBC) [Ratio] 15.2 % High 11.5-14.5 [facility] Comment on above: Performed By: #### A CBC, RENF #### Testing performed at [address] [place] [address] Hematocrit (Bld) [Volume fraction] 34.0 % Low 36.0-48.0 [facility] Comment on above: Performed By: #### A CBC, RENF #### Testing performed at [address] [place] [address] Hemoglobin (Bld) [Mass/Vol] 10.6 g/dL Low 12.0-16.0 [facility] Comment on above: Performed By: #### A CBC, RENF #### Testing performed at [address] [place] [address] MCH (RBC) [Entitic mass] 26.0 pg Normal 26.0-35.0 [facility] Comment on above: Performed By: #### A CBC, RENF #### Testing performed at [address] [address] MCHC (RBC) [Mass/Vol] 31.2 g/dL Normal 27.0-37.0 [facility] Comment on above: Performed By: #### A CBC, RENF #### Testing performed at [address] [address] MCV (RBC) [Entitic vol] 83.2 fL Normal 80.0-100.0 [facility] Comment on above: Performed By: #### A CBC, RENF #### Testing performed at [address] [address] Platelet mean volume (Bld) [Entitic vol] 9.6 fL Normal 7.4-11.0 [facility] Comment on above: Performed By: #### A CBC, RENF #### Testing performed at [address] [address] Platelets (Bld) [#/Vol] 177 10*3/uL Normal 130-400 [facility] Comment on above: Performed By: #### A CBC, RENF #### Testing performed at [address] [address] RBC (Bld) [#/Vol] 4.08 10*6/uL Normal 4.0-5.4 [facility] Comment on above: Performed By: #### A CBC, RENF #### Testing performed at [address] [address] WBC (Bld) [#/Vol] 11.3 10*3/uL High 3.6-11.0 [facility] Comment on above: Performed By: #### A CBC, RENF #### Testing performed at [facility] [address] [facility] [place] [address] CBC, EDIF, PLATELETon 2022 ABSOLUTE BASOPHIL COUNT 0.0 10*3/uL 0.0 - 0.2 10*3/uL [facility] Basophils/100 WBC (Bld) 0.1 % 0.0 - 2.0 % [facility] Differential cell count method Nom (Bld) AUTO DIFF % [facility] Eosinophils (Bld) [#/Vol] 0.0 10*3/uL 0.0 - 0.7 10*3/uL [facility] Eosinophils/100 WBC (Bld) 0.0 % 0.0 - 11.0 % [facility] Erythrocyte distribution width (RBC) [Ratio] 15.2 % High 11.5 - 14.5 % [facility] Hematocrit (Bld) [Volume fraction] 34.0 % Low 36.0 - 48.0 % [facility] Hemoglobin (Bld) [Mass/Vol] 10.6 g/dL Low [facility] Interpretation and review of laboratory results Abnormal [facility] Lymphocytes (Bld) [#/Vol] 0.9 10*3/uL Low 1.2 - 3.4 10*3/uL [facility] Lymphocytes/100 WBC (Bld) 7.9 % Low 20.0 - 55.0 % [facility] MCH (RBC) [Entitic mass] 26.0 pg 26.0 - 35.0 PG [facility] MCHC (RBC) [Mass/Vol] 31.2 g/dL [facility] MCV (RBC) [Entitic vol] 83.2 fL [facility] Monocytes (Bld) [#/Vol] 0.4 10*3/uL 0.0 - 0.7 10*3/uL [facility] Monocytes/100 WBC (Bld) 3.7 % 0.0 - 10.0 % [facility] Neutrophils (Bld) [#/Vol] 10.0 10*3/uL High 1.4 - 6.5 10*3/uL [facility] Neutrophils/100 WBC (Bld) 88.3 % High 37.0 - 75.0 % [facility] Platelet mean volume (Bld) [Entitic vol] 9.6 fL [facility] Platelets (Bld) [#/Vol] 177 10*3/uL 130 - 400 10*3/uL [facility] RBC (Bld) [#/Vol] 4.08 10*6/uL 4.0 - 5.4 10*6/uL [facility] WBC (Bld) [#/Vol] 11.3 10*3/uL High 3.6 - 11.0 10*3/uL [facility] RENAL FUNCTION PANELon 07-27 Albumin [Mass/Vol] 3.5 G/dl 3.5 - 5.0 G/dl [facility] Calcium [Mass/Vol] 8.6 mg/dL [facility] Chloride [Moles/Vol] 109 mmol/L High [facility] Comment on above: Please note: Triglyc eride levels of 600mg/dL or higher may positively bias chloride results by approximately 2.1 mmol CO2 [Moles/Vol] 23 mmol/L [facility] Creatinine [Mass/Vol] 0.60 mg/dL Low [facility] GFR COMMENT Average GFR for 70+ years old = 75. [facility] Comment on above: Chronic Kidney disea se, GFR = <60. Kidney failure, GFR = <15. The GFR estimate is not adjusted for extreme body surface area or acute process, nor has it been validated for women or ethnic groups other than and . GFR/1.73 sq M.predicted among blacks MDRD (S/P/Bld) [Vol rate/Area] 127 mL/min/{1.73_m2} ml/min/1.7 3sq.m [facility] GFR/1.73 sq M.predicted among non-blacks MDRD (S/P/Bld) [Vol rate/Area] 105 mL/min/{1.73_m2} ml/min/1.7 3sq.m [facility] Glucose post fast [Mass/Vol] 124 mg/dL High [facility] Comment on above: NORMAL <100 mg/dL PREDIABETES 101-126 mg/dL DIABETES 126 mg/dL or higher Interpretation and review of laboratory results Abnormal [facility] Phosphate [Mass/Vol] 4.0 mg/dL [facility] Potassium [Moles/Vol] 4.6 mmol/L [facility] Sodium [Moles/Vol] 138 mmol/L [facility] Urea nitrogen [Mass/Vol] 17 mg/dL [facility] RENAL PANEL,FASTINGon 2022 ALBUMIN 3.5 G/dl Normal 3.5-5.0 [facility] Comment on above: Performed By: #### A CBC, RENF #### Testing performed at [address] [address] Calcium [Mass/Vol] 8.6 mg/dL Normal 8.4-10.2 [facility] Comment on above: Performed By: #### A CBC RENF #### Testing performed at [address] [address] Chloride [Moles/Vol] 109 mmol/L High 98-107 [facility] Comment on above: Result Comment: Drew cantu note: Triglyceride levels of 600mg/dL or higher may positively bias chloride results by approximately 2.1 mmol Performed By: #### A CBC, RENF #### Testing performed at [address] [address] CO2 [Moles/Vol] 23 mmol/L Normal 22-30 [facility] Comment on above: Performed By: #### A CBC, RENF #### Testing performed at [address] [address] Creatinine [Mass/Vol] 0.60 mg/dL Low 0.70-1.20 [facility] Comment on above: Performed By: #### A CBC, RENF #### Testing performed at [address] [address] EST. GFR, 127 ml/min/1.73sq.m [facility] Comment on above: Performed By: #### A CBC, RENF #### Testing performed at [address] [address] EST. GFR,Non 105 ml/min/1.73sq.m [facility] Comment on above: Performed By: #### A CBC, RENF #### Testing performed at [address] [address] GFR Information Average GFR for 70+ years old = 75. Normal [facility] Comment on above: Result Comment: Cloth Layer madina Kidney disease, GFR = <60. Kidney failure, GFR = <15. The GFR estimate is not adjusted for extreme body surface area or acute process, nor has it been validated for women or ethnic groups other than and . Performed By: #### A CBC, RENF #### Testing performed at [address] [address] Glucose [Mass/Vol] 124 mg/dL High 70-100 [facility] Comment on above: Result Comment: NORMAL <100 mg/dL PREDIABETES 101-126 mg/dL DIABETES 126 mg/dL or higher Performed By: #### A CBC RENF #### Testing performed at [address] [address] PHOSPHOROUS 4.0 MG/DL Normal 2.5-4.5 [facility] Comment on above: Performed By: #### A CBC, RENF #### Testing performed at [address] [address] Potassium [Moles/Vol] 4.6 mmol/L Normal 3.5-5.1 [facility] Comment on above: Performed By: #### A CBC RENF #### Testing performed at [address] [address] Sodium [Moles/Vol] 138 mmol/L Normal 137-145 [facility] Comment on above: Performed By: #### A CBC, RENF #### Testing performed at [address] [address] Urea nitrogen [Mass/Vol] 17 mg/dL Normal 7-20 [facility] Comment on above: Performed By: #### A CBC, RENF #### Testing performed at [address] [address] AFB SMEARon 07-26-2023 ACID FAST CULTURE PENDING Normal [facility] Comment on above: Performed By: #### U NEGRA, UMAC #### Testing performed at [address] [address] ACID FAST CULTURE PENDING Normal [facility] Comment on above: Performed By: #### U NEGRA, UMAC #### Testing performed at [address] [address] ANAEROBIC CULTUREon 07-26-20 ANAEROBIC CULTURE SPECIMEN DESCRIPTION LEFT KNEE SPECIAL REQUESTS TIBIAL CANAL CULTURE NO GROWTH 5 DAYS * Result Note: Testing performed at [place] [address] * REPORT STATUS 07/31/2023 * Result Note: FINAL * Normal [facility] Comment on above: Performed By: #### U NEGRA, UMAC #### Testing performed at [address] [address] ANAEROBIC CULTURE SPECIMEN DESCRIPTION LEFT KNEE SPECIAL REQUESTS MEDIAL SYNOVIUM CULTURE NO GROWTH 5 DAYS * Result Note: Testing performed at [place] [address] * REPORT STATUS 07/31/2023 * Result Note: FINAL * Normal [facility] Comment on above: Performed By: #### U NEGRA, UMAC #### Testing performed at [address] [address] ANAEROBIC CULTURE SPECIMEN DESCRIPTION LEFT KNEE SPECIAL REQUESTS L. KNEE INCISON CULTURE NO GROWTH 5 DAYS * Result Note: Testing performed at [place] [address] * REPORT STATUS 07/31/2023 * Result Note: FINAL * Normal [facility] Comment on above: Performed By: #### A NER #### Testing performed at [address] [address] Testing performed at [address] [address] GLUCOSE (POC DEVICE)on 07-26 GLUCOSE, POINT OF CARE 85 [facility] Operator [id number] [facility] MRSA SCREENon 07-26-2023 MRSA DNA YANN+probe Ql (Unsp spec) Negative Normal NEGATIVE [facility] Comment on above: Performed By: #### M RSAST #### Testing performed at [address] [address] STAPH AUREUS SCREEN Negative Normal NEGATIVE [facility] Comment on above: Result Comment: TEST ING PERFORMED BY PCR Performed By: #### M RSAST #### Testing performed at [address] [address] POCT GLUCOSEon 07-26-2023 Glucose [Mass/Vol] 85 mg/dL Normal 70-100 [facility] DIRECTOR CARDIOLOGY [id number] Normal [facility] REPEAT ABO/RHon 07-26-2023 REPEAT ABO/RH Positive Normal [facility] Comment on above: Performed By: #### U NEGRA, UMAC #### Testing performed at [address] [address] REPEAT ABO/RH (D) TYPINGon 1 09-26-2022 ABO and Rh group Nom (Bld ) Positive [facility] SCREEN: MRSA ONLY, NARES (IS OLATION SCREEN)on 07-26-2023 MRSA isol Org specific cx Ql (Nose) Negative [facility]GATIVE [facility] ST[facility]HY[facility] A[facility] BY PCR Negative [facility] Comment on above: TESTING PERFORMED BY PCR VideoLens System TYPE AND SCREEN CROSSMATCH C ONVERTIBLEon 07-26-2023 TYPE AND SCREEN CROSSMATCH CONVERTIBLE UNITS ORDERED 2 WORKUP EXPIRES 07/29/2023,2359 ABO/RH(D) A POSITIVE ANTIBODY SCREEN NEGATIVE ARM BAND NUMBER [id number] UNIT NUMBER [id number] BLOOD COMPONENT TYPE LRBC PART 2 UNIT DIVISION 00 STATUS OF UNIT REL FROM ALLOC TRANSFUSION STATUS PENDING CROSSMATCH RESULT PENDING UNIT NUMBER [id number] BLOOD COMPONENT TYPE LEUKORED RBC UNIT DIVISION 00 STATUS OF UNIT REL FROM ALLOC TRANSFUSION STATUS PENDING CROSSMATCH RESULT PENDING [facility] Comment on above: Performed By: #### U NEGRA, UMAC #### Testing performed at [address] [address] WOUND CULTUREon 07-26-2023 WOUND CULTURE SPECIMEN DESCRIPTION LEFT KNEE SPECIAL REQUESTS TIBIAL CANAL GRAM SMEAR FEW * Result Note: WBC'S SEEN * * Result Note: NO ORGANISMS SEEN * CULTURE NO GROWTH 5 DAYS * Result Note: Testing performed at [place] [address] * REPORT STATUS 07/31/2023 * Result Note: FINAL * [facility] Comment on above: Performed By: #### U NEGRA, UMAC #### Testing performed at [address] [address] WOUND CULTURE SPECIMEN DESCRIPTION LEFT KNEE SPECIAL REQUESTS MEDIAL SYNOVIUM GRAM SMEAR FEW * Result Note: WBC'S SEEN * * Result Note: NO ORGANISMS SEEN * CULTURE NO GROWTH 5 DAYS * Result Note: Testing performed at [place] [address] * REPORT STATUS 07/31/2023 * Result Note: FINAL * Normal [facility] Comment on above: Performed By: #### U NEGRA, UMAC #### Testing performed at [address] [address] WOUND CULTURE SPECIMEN DESCRIPTION LEFT KNEE SPECIAL REQUESTS L. KNEE INCISION GRAM SMEAR FEW * Result Note: WBC'S SEEN * * Result Note: NO ORGANISMS SEEN * CULTURE NO GROWTH 5 DAYS * Result Note: Testing performed at [place], [place] [address] * REPORT STATUS 07/31/2023 * Result Note: FINAL * Normal [facility] Comment on above: Performed By: #### U NEGRA, UMAC #### Testing performed at [address] [address] XR KNEE LEFT 1-2 VIEWSon XR KNEE LEFT 1-2 VIEWS EXAM: XR KNEE LEFT 1-2 VIEWS HISTORY: tka COMPARISON: Left knee 03/03/2023 TECHNIQUE: Crosstable lateral and frontal views of the left knee provided. FINDINGS: Revision of the previously seen total knee arthroplasty with longstem femoral and tibial components and rods traversing the knee joint space. . Resurfacing of the patella noted. No evident immediate hardware complication is seen. Drain within the soft tissues anterior to the distal femur. Soft tissue gas with overlying surgical derrick noted. Alignment appears anatomic. No acute displaced fracture seen. IMPRESSION: Revision of the left total knee arthroplasty with no hardware complication and expected immediate postsurgical appearance. Normal [facility] XR Knee - left 2 Viewson IMPRESSION: Revision of the left total knee arthroplasty with no hardware complication and expected immediate postsurgical appearance. RADIOLOGY EXAM: XR KNEE LEFT 1 -2 VIEWS HISTORY: tka COMPARISON: Left knee 03/03/2023 TECHNIQUE: Crosstable lateral and frontal views of the left knee provided. FINDINGS: Revision of the previously seen total knee arthroplasty with longstem femoral and tibial components and rods traversing the knee joint space. . Resurfacing of the patella noted. No evident immediate hardware complication is seen. Drain within the soft tissues anterior to the distal femur. Soft tissue gas with overlying surgical derrick noted. Alignment appears anatomic. No acute displaced fracture seen. RADIOLOGY Patricio Krishnamurthy MD - 07/26/2023 EXAM: XR KNEE LEFT 1-2 VIEWS HISTORY: tka COMPARISON: Left knee 03/03/2023 TECHNIQUE: Crosstable lateral and frontal views of the left knee provided. FINDINGS: Revision of the previously seen total knee arthroplasty with longstem femoral and tibial components and rods traversing the knee joint space. . Resurfacing of the patella noted. No evident immediate hardware complication is seen. Drain within the soft tissues anterior to the distal femur. Soft tissue gas with overlying surgical derrick noted. Alignment appears anatomic. No acute displaced fracture seen. IMPRESSION IMPRESSION: Revision of the left total knee arthroplasty with no hardware complication and expected immediate postsurgical appearance. [facility] Study observation (narrative) [facility] XR Knee - left 2 ViewsOrdere d By: Patricio Krishnamurthy on 07-26-2023 [facility] Work Phone: Consent for Treatmenton Consent for Treatment [id number]#1.00TIFF Normal [facility] Consultation Noteon 07-23-20 Consultation Note Patient: OMEGA REYES Age: 68 years Sex: Female : 1955 Associated Diagnoses: None Author: Louise Owusu PA-C Subjective Chief complaint 07/23/2023 8:52 EST Lower back pain . Patient is a 68-year-old female. Patient underwent recent bilateral L3-4 transforaminal epidural steroid injection that she states she is unsure if it gave her any relief. She continues to have some left-sided buttock pain with left leg pain but then she shares with me that she is getting ready to have a left knee replacement revision on Wednesday. She wants to see if this may be make some of her ambulation and pain better. She states that her left knee is very bothersome. She rates the above-mentioned discomfort at 9/10. She has difficulty getting out of a chair. She states the pain is worse with walking. Patient had issues sleeping with pregabalin. Gabapentin and meloxicam also caused side effects. She is here today to just give us an update as to how she is doing but she does not want to do anything as she is having her replacement revision done on Mike. Health Status Allergies: Allergic Reactions (Selected) Severity Not Documented Amoxicillin- Edema of face., Allergies (1) Active Reaction amoxicillin Edema of face Current medications: (Selected) Prescriptions Prescribed cyclobenzaprine 10 mg Tab: 10 mg = 1 tab(s), Oral, TID, PRN for spasm, # 30 tab(s), Refills(s) 0, Pharmacy: [facility]/pharmacy #[id number], 160, cm, 06/22/23 9:45:00 EST, Height/Length Dosing, 88.5, kg, 06/22/23 9:45:00 EST, Weight Dosing Documented Medications Documented Lopressor 25 mg oral tablet: TAKE 1/2 TABLET BY MOUTH TWICE DAILY Tylenol 325 mg oral capsule: 650 mg = 2 cap(s), Oral, q4hr, PRN as needed for pain, Refills(s) 0 aspirin 81 mg Oral EC Tab: 81 mg = 1 tab(s), Oral, Daily, Refills(s) 0 calcium (as carbonate) 600 mg oral tablet: 1,200 mg = 2 tab(s), Oral, Daily, Refills(s) 0 celecoxib 200 mg Cap: 200 mg = 1 cap(s), Oral, BID, Refills(s) 0 cranberry: See Instructions, Refill(s) 0, 500 mg daily docusate: See Instructions, twice daily, Refills(s) 0 estradiol: See Instructions, once weekly, Refills(s) 0 magnesium oxide 400 mg Tab: See Instructions, once daily, Refills(s) 0 melatonin: See Instructions, nightly, Refills(s) 0 potassium chloride 99 mg oral tablet: 99 mg = 1 tab(s), Oral, Daily, # 100 tab(s), Refills(s) 0 Problem list: All Problems HTN (hypertension) / SNOMED CT 8749595525 / Confirmed H/O gastroesophageal reflux (GERD) / SNOMED CT 1303419466 / Confirmed H/O: osteoarthritis / SNOMED CT 151286435 / Confirmed Lower back pain / SNOMED CT 314700728 / Confirmed Rib pain on left side / SNOMED CT 248497923 / Confirmed Muscle spasm / SNOMED CT 96158636 / Confirmed Sacroiliitis / SNOMED CT 21813780 / Confirmed Left upper quadrant pain / SNOMED CT 483734170 / Confirmed Watery stools / SNOMED CT 3429685003 / Confirmed Encounter for preoperative examination for general surgical procedure / SNOMED CT 405398022 / Confirmed Elevated WBC count / SNOMED CT 308507600 / Confirmed BMI 34.0-34.9,adult / SNOMED CT 009352542 / Confirmed Objective Vital Signs 07/23/2023 8:52 EST Peripheral Pulse Rate 63 bpm Respiratory Rate 14 br/min Systolic Blood Pressure 119 mmHg Diastolic Blood Pressure 71 mmHg Mean Arterial Pressure, Cuff 87 mmHg General: Alert and oriented, No acute distress. Eye: Normal conjunctiva. HENT: Normocephalic, Normal hearing. Cardiovascular: No edema. Musculoskeletal Normal range of motion. Normal strength. 5/5 lower extremity strength but pain with movement of the left knee Difficulty getting up and ambulating due to left knee pain Integumentary: Warm, Dry, [place]. Neurologic: Alert, Oriented. Psychiatric: Cooperative, Appropriate mood & affect. Results Review Lumbar MRI report once again reviewed Impression and Plan Patient is a 68-year-old female with a past medical history seen for lumbar stenosis, lumbar neuritis, sacroiliitis and left knee pain?left knee replacement. Patient is getting ready to have a left knee replacement revision done on Wednesday. She wants to wait any other treatments by our services until after she has the left knee and is recovered. She is here today to update us on her injection relief. Unfortunate, she did not feel that she got much by the way of relief. We discussed different options but at this time, she is just going to pursue her revision replacement and she will call us after she has recovered should she require anything from our services. Questions were all answered and discussed. Follow-up as needed OARRS reviewed ANN score: 54% Normal [facility] Comment on above: Result Comment: Elec tronically Signed By: Louise Owusu PA-C\.br\Date and Time Signed: 07/23/23 09:12 EST\.br\Electronically Co-Signed By: Juwan Mendez DO.lyndsey\Date and Time Co-Signed: 07/29/23 21:42 EST Office/Clinic Note-Physician on 07-23-2023 Office/Clinic Note-Physician [id number]#1.00TIFF Normal [facility] Outside Diabetes Eye Examon 07-23-2023 Outside Diabetes Eye Exam [id number]#1.00TIFF Normal [facility] Patient Correspondenceon Patient Correspondence [id number]#1.00TIFF Normal [facility] Patient Correspondence [id number]#1.00TIFF Normal [facility] Patient History Officeon Patient History Office [id number]#1.00TIFF Normal [facility] Outside Records Officeon Outside Records Office [id number]#1.00TIFF Normal [facility] Patient Correspondenceon Patient Correspondence [id number]#1.00TIFF Normal [facility] Provider Letteron 07-13-2023 Provider Letter (Inserted Image. Fernanda ble to display) [address] [place], [place] [id number] July 13, 2023 LILO REYES [address] [place] [id number] : [address]Scott Garay The above patient has been evaluated at your request for preoperative clearance. After assessment of available pertinent labs and diagnostic tests, I feel this patient is medically optimized for surgery. We rechecked CBC in office and her WBC's are now normal 5.7, we also rechecked her urine and it is also negative. Final discretion of whether the patient is cleared for surgery remains up to the surgeon/anesthesiologist. Thank you, ALLISON [facility] Ambulatory Visit Summaryon 09-11-2022 Ambulatory Visit Summary LILO REYES :1955 Visit Date:07/12/2023 Ambulatory Visit Instructions Your Diagnosis Encounter for preoperative examination for general surgical procedure Elevated WBC count Your Care Team Attending Physician - Jaci Tee Primary Care Physician - Jaci Tee This Is Your Medications List acetaminophen (Tylenol 325 mg oral capsule) aspirin (aspirin 81 mg Oral EC Tab) calcium carbonate (calcium (as carbonate) 600 mg oral tablet) celecoxib (celecoxib 200 mg Cap) cranberry cyclobenzaprine (cyclobenzaprine 10 mg Tab) docusate estradiol magnesium oxide (magnesium oxide 400 mg Tab) melatonin metoprolol (Lopressor 25 mg oral tablet) potassium chloride (potassium chloride 99 mg oral tablet) Procedures Performed Injection of sacroiliac joint using fluoroscopic guidance (05/12/2023), Injection of sacroiliac joint using fluoroscopic guidance (01/20/2023), Injection of facet joint using fluoroscopic guidance (11/18/2022), History of left knee replacement (2021), Cataract surgery (2020), History of spinal fusion (2020), History of carpal tunnel decompression (2018), History of urinary bladder surgery (2011), Abdominal hysterectomy (1998), Arthroscopy of knee (1998), History of repair of rotator cuff (1986), Stripping of vein (1985), Appendectomy (1983), Cholecystectomy (1983), History of tonsillectomy (1957). Discharge Vitals Heart Rate (Peripheral) 50 Respiratory Rate 16 Blood Pressure 128/82 What to do next Scheduled Follow-Up Appointments Wednesday 8:45 AM EST With: Louise Owusu PA-C Where: [facility] You Need to Complete the Following CBC w/ Auto Diff, Blood, Routine collect, 07/12/23, Order for future visit, Lab Collect, Encounter for preoperative examination for general surgical procedure Normal [facility] Auto Diffon 07-12-2023 Basophils/100 WBC (Bld) 0.8 % Normal 0.0-2.0 [facility] Comment on above: Order Comment: Order Added by Discern Expert. Performed By: #### 2 [id number], [id number] #### [facility] Laboratory [address] [place] [address] Basophils/Leukocyt es Auto (Bld) [Pure # fraction] 0.0 E9/L Normal 0.0-0.2 [facility] Comment on above: Order Comment: Order Added by Discern Expert. Performed By: #### 2 303118, [id number] #### [facility] [address] [place] [address] Eosinophils/100 WBC (Bld) 2.7 % Normal 0.0-8.0 [facility] Comment on above: Order Comment: Order Added by Discern Expert. Performed By: #### 2 [id number], [id number] #### [facility] [address] [place] [address] Eosinophils/Leukoc ytes Auto (Bld) [Pure # fraction] 0.2 E9/L Normal 0.0-0.5 [facility] Comment on above: Order Comment: Order Added by Crystal Expert. Performed By: #### 2 035011, [id number] #### [facility] [address] [place] [address] Lymphocytes/100 WBC (Bld) 32.1 % Normal 14.0-50.0 [facility] Comment on above: Order Comment: Order Added by Discern Expert. Performed By: #### 2 721186, [id number] #### [facility] [address] [place] [address] Lymphocytes/Leukoc ytes Auto (Bld) [Pure # fraction] 1.8 E9/L Normal 1.0-4.0 [facility] Comment on above: Order Comment: Order Added by Crystal Expert. Performed By: #### 2 051232, [id number] #### [facility] [address] [place] [address] Monocytes/100 WBC (Bld) 6.0 % Normal 4.0-14.0 [facility] Comment on above: Order Comment: Order Added by Discern Expert. Performed By: #### 2 258359, [id number] #### [facility] [address] [place] [address] Monocytes/Leukocyt es Auto (Bld) [Pure # fraction] 0.3 E9/L Normal 0.2-1.0 [facility] Comment on above: Order Comment: Order Added by Discern Expert. Performed By: #### 2 640616, [id number] #### [facility] [address] [place] [address] Neutrophils/100 WBC (Bld) 58.4 % Normal 36.0-75.0 [facility] Comment on above: Order Comment: Order Added by Discern Expert. Performed By: #### 2 406975, [id number] #### [facility] [address] [place] [address] Neutrophils/Leukoc ytes Auto (Bld) [Pure # fraction] 3.3 E9/L Normal 2.0-7.5 [facility] Comment on above: Order Comment: Order Added by Discern Expert. Performed By: #### 2 847752, [id number] #### [facility] [address] [place] [address] CBC w/ Auto Diffon Erythrocyte distribution width (RBC) [Ratio] 15.3 % High 10.9-14.2 [facility] Comment on above: Performed By: #### 2 039004, [id number] #### [facility] [address] [place] [address] Hematocrit (Bld) [Volume fraction] 39.2 % Normal 34.0-46.0 [facility] Comment on above: Performed By: #### 2 055495, [id number] #### [facility] [address] [place] [address] Hemoglobin (Bld) [Mass/Vol] 12.9 g/dL Normal 12.0-16.0 [facility] Comment on above: Performed By: #### 2 473121, [id number] #### [facility] [address] [place] [address] MCH (RBC) [Entitic mass] 26.7 pg Low 27.0-34.0 [facility] Comment on above: Performed By: #### 2 616221, [id number] #### [facility] [address] [place] [address] MCHC (RBC) [Mass/Vol] 32.8 g/dL Normal 31.4-36.0 [facility] Comment on above: Performed By: #### 2 166737, [id number] #### [facility] [address] [place] [address] MCV (RBC) [Entitic vol] 81.3 fL Normal 80.0-100.0 [facility] Comment on above: Performed By: #### 2 907729, [id number] #### [facility] [address] [place] [address] Platelet mean volume (Bld) [Entitic vol] 10.0 fL Normal 6.4-10.8 [facility] Comment on above: Performed By: #### 2 394156, [id number] #### [facility] [address] [place] [address] Platelets (Bld) [#/Vol] 174.0 E9/L Normal 150.0-500. 0 [facility] Comment on above: Performed By: #### 2 077919, [id number] #### [facility] [address] [place] [address] RBC (Bld) [#/Vol] 4.8 E12/L Normal 4.3-5.9 [facility] Comment on above: Performed By: #### 2 817621, [id number] #### [facility] [address] [place] [address] WBC corrected for nucl RBC Auto (Bld) [#/Vol] 5.7 E9/L Normal 4.0-11.0 [facility] Comment on above: Result Comment: Slid e reviewed by JS. Performed By: #### 2 195117, [id number] #### [facility] [address] [place] [address] HEMATOLOGYOrdered By: SYSTEM SYSTEM on 07-12-2023 Basophils/100 WBC (Bld) 0.8 % Normal 0.0 - 2.0 % [facility] Basophils/Leukocyt es Auto (Bld) [Pure # fraction] 0.0 E9/L Normal 0.0 - 0.2 E9/L [facility] Eosinophils/100 WBC (Bld) 2.7 % Normal 0.0 - 8.0 % [facility] Eosinophils/Leukoc ytes Auto (Bld) [Pure # fraction] 0.2 E9/L Normal 0.0 - 0.5 E9/L [facility] Lymphocytes/100 WBC (Bld) 32.1 % Normal 14.0 - 50.0 % [facility] Lymphocytes/Leukoc ytes Auto (Bld) [Pure # fraction] 1.8 E9/L Normal 1.0 - 4.0 E9/L [facility] Monocytes/100 WBC (Bld) 6.0 % Normal 4.0 - 14.0 % [facility] Monocytes/Leukocyt es Auto (Bld) [Pure # fraction] 0.3 E9/L Normal 0.2 - 1.0 E9/L [facility] Neutrophils/100 WBC (Bld) 58.4 % Normal 36.0 - 75.0 % [facility] Neutrophils/Leukoc ytes Auto (Bld) [Pure # fraction] 3.3 E9/L Normal 2.0 - 7.5 E9/L [facility] HEMATOLOGYOrdered By: Lolly De Guzman on 07-12-2023 Erythrocyte distribution width (RBC) [Ratio] 15.3 % High 10.9 - 14.2 % [facility] Hematocrit (Bld) [Volume fraction] 39.2 % Normal 34.0 - 46.0 % [facility] Hemoglobin (Bld) [Mass/Vol] 12.9 g/dL Normal 12.0 - 16.0 gm/dL [facility] MCH (RBC) [Entitic mass] 26.7 pg Low 27.0 - 34.0 pg [facility] MCHC (RBC) [Mass/Vol] 32.8 g/dL Normal 31.4 - 36.0 gm/dL [facility] MCV (RBC) [Entitic vol] 81.3 fL Normal 80.0 - 100.0 fL [facility] Platelet mean volume (Bld) [Entitic vol] 10.0 fL Normal 6.4 - 10.8 fL [facility] Platelets (Bld) [#/Vol] 174.0 E9/L Normal 150.0 - 500.0 E9/L [facility] RBC (Bld) [#/Vol] 4.8 E12/L Normal 4.3 - 5.9 E12/L [facility] WBC corrected for nucl RBC Auto (Bld) [#/Vol] 5.7 E9/L Normal 4.0 - 11.0 E9/L [facility] Comment on above: Result Comment: Mary jo reviewed by CHELSEA. [employer] 07-07-2023 Forms [id number]#1.00TIFF Normal [facility] CBCon 07-01-2023 ABSOLUTE BAS 0.0 10*3/uL Normal 0.0-0.2 [facility] Comment on above: Performed By: #### U NEGRA, UMAC #### Testing performed at [address] [address] ABSOLUTE EOS 0.0 10*3/uL Normal 0.0-0.7 [facility] Comment on above: Performed By: #### U NEGRA, UMAC #### Testing performed at [address] [address] ABSOLUTE NEUTROPHIL COUNT 9.1 10*3/uL High 1.4-6.5 [facility] Comment on above: Performed By: #### U NEGRA, UMAC #### Testing performed at [address] [address] Basophils/100 WBC (Bld) 0.2 % Normal 0.0-2.0 [facility] Comment on above: Performed By: #### U NEGRA, UMAC #### Testing performed at [address] [address] DTYPE AUTO DIFF Normal [facility] Comment on above: Performed By: #### U NEGRA, UMAC #### Testing performed at [address] [address] Eosinophils/100 WBC (Bld) 0.1 % Normal 0.0-11.0 [facility] Comment on above: Performed By: #### U NEGRA, UMAC #### Testing performed at [address] [address] Lymphocytes (Bld) [#/Vol] 2.2 10*3/uL Normal 1.2-3.4 [facility] Comment on above: Performed By: #### U NEGRA, UMAC #### Testing performed at [address] [address] Lymphocytes/100 WBC (Bld) 18.7 % Low 20.0-55.0 [facility] Comment on above: Performed By: #### U NEGRA, UMAC #### Testing performed at [address] [address] Monocytes (Bld) [#/Vol] 0.5 10*3/uL Normal 0.0-0.7 [facility] Comment on above: Performed By: #### U NEGRA, UMAC #### Testing performed at [address] [address] Monocytes/100 WBC (Bld) 4.4 % Normal 0.0-10.0 [facility] Comment on above: Performed By: #### U NEGRA, UMAC #### Testing performed at [address] [address] Neutrophils/100 WBC (Bld) 76.6 % High 37.0-75.0 [facility] Comment on above: Performed By: #### U NEGRA, UMAC #### Testing performed at [address] [address] Erythrocyte distribution width (RBC) [Ratio] 15.1 % High 11.5-14.5 [facility] Comment on above: Performed By: #### U NEGRA, UMAC #### Testing performed at [address] [address] Hematocrit (Bld) [Volume fraction] 40.0 % Normal 36.0-48.0 [facility] Comment on above: Performed By: #### U NEGRA, UMAC #### Testing performed at [address] [address] Hemoglobin (Bld) [Mass/Vol] 12.8 g/dL Normal 12.0-16.0 [facility] Comment on above: Performed By: #### U NEGRA, UMAC #### Testing performed at [address] [address] MCH (RBC) [Entitic mass] 26.5 pg Normal 26.0-35.0 [facility] Comment on above: Performed By: #### U NEGRA, UMAC #### Testing performed at [address] [address] MCHC (RBC) [Mass/Vol] 32.1 g/dL Normal 27.0-37.0 [facility] Comment on above: Performed By: #### U NEGRA, UMAC #### Testing performed at [address] [address] MCV (RBC) [Entitic vol] 82.6 fL Normal 80.0-100.0 [facility] Comment on above: Performed By: #### U NEGRA, UMAC #### Testing performed at [address] [address] Platelet mean volume (Bld) [Entitic vol] 10.7 fL Normal 7.4-11.0 [facility] Comment on above: Performed By: #### U NEGRA, UMAC #### Testing performed at [address] [address] Platelets (Bld) [#/Vol] 163 10*3/uL Normal 130-400 [facility] Comment on above: Performed By: #### U NEGRA, UMAC #### Testing performed at [address] [address] RBC (Bld) [#/Vol] 4.85 10*6/uL Normal 4.0-5.4 [facility] Comment on above: Performed By: #### U NEGRA, UMAC #### Testing performed at [address] [address] WBC (Bld) [#/Vol] 11.8 10*3/uL High 3.6-11.0 [facility] Comment on above: Performed By: #### U NEGRA, UMAC #### Testing performed at [address] [address] CMP FASTINGon 07-01-2023 A:G RATIO 1.7 RATIO Normal [facility] Comment on above: Performed By: #### U NEGRA, UMAC #### Testing performed at [address] [address] ALBUMIN 4.6 G/dl Normal 3.5-5.0 [facility] Comment on above: Performed By: #### U NEGRA, UMAC #### Testing performed at [address] [address] ALP [Catalytic activity/Vol] 55 U/L Normal 38-126 [facility] Comment on above: Performed By: #### U NEGRA, UMAC #### Testing performed at [address] [address] ALT [Catalytic activity/Vol] 25 U/L Normal <35 [facility] Comment on above: Performed By: #### U NEGRA, UMAC #### Testing performed at [address] [address] AST [Catalytic activity/Vol] 29 U/L Normal 14-36 [facility] Comment on above: Performed By: #### U NEGRA, UMAC #### Testing performed at [address] [address] Bilirubin [Mass/Vol] 0.4 mg/dL Normal 0.2-1.3 [facility] Comment on above: Performed By: #### U NEGRA, UMAC #### Testing performed at [address] [address] Calcium [Mass/Vol] 9.9 mg/dL Normal 8.4-10.2 [facility] Comment on above: Performed By: #### U NEGRA, UMAC #### Testing performed at [address] [address] Chloride [Moles/Vol] 105 mmol/L Normal 98-107 [facility] Comment on above: Result Comment: Drew cantu note: Triglyceride levels of 600mg/dL or higher may positively bias chloride results by approximately 2.1 mmol Performed By: #### U NEGRA, UMAC #### Testing performed at [address] [address] CO2 [Moles/Vol] 26 mmol/L Normal 22-30 [facility] Comment on above: Performed By: #### U NEGRA, UMAC #### Testing performed at [address] [address] Creatinine [Mass/Vol] 0.60 mg/dL Low 0.70-1.20 [facility] Comment on above: Performed By: #### U NEGRA, UMAC #### Testing performed at [address] [address] EST. GFR, 127 ml/min/1.73sq.m [facility] Comment on above: Performed By: #### U NEGRA, UMAC #### Testing performed at [address] [address] EST. GFR,Non 105 ml/min/1.73sq.m Normal [facility] Comment on above: Performed By: #### U NEGRA, UMAC #### Testing performed at [address] [address] GFR Information Average GFR for 60-6 9 years old = 85. Normal [facility] Comment on above: Result Comment: Cloth Layer madina Kidney disease, GFR = <60. Kidney failure, GFR = <15. The GFR estimate is not adjusted for extreme body surface area or acute process, nor has it been validated for women or ethnic groups other than and . Performed By: #### U NEGRA, UMAC #### Testing performed at [address] [address] Glucose [Mass/Vol] 137 mg/dL High 70-100 [facility] Comment on above: Result Comment: NORMAL <100 mg/dL PREDIABETES 101-126 mg/dL DIABETES 126 mg/dL or higher Performed By: #### U NEGRA, UMAC #### Testing performed at [address] [address] Potassium [Moles/Vol] 4.2 mmol/L Normal 3.5-5.1 [facility] Comment on above: Performed By: #### U NEGRA, UMAC #### Testing performed at [address] [address] Protein [Mass/Vol] 7.3 g/dL Normal 6.3-8.2 [facility] Comment on above: Performed By: #### U NEGRA, UMAC #### Testing performed at [address] [address] Sodium [Moles/Vol] 140 mmol/L Normal 137-145 [facility] Comment on above: Performed By: #### U NEGRA, UMAC #### Testing performed at [address] [address] Urea nitrogen [Mass/Vol] 18 mg/dL Normal 7-20 [facility] Comment on above: Performed By: #### U NEGRA, UMAC #### Testing performed at [address] [address] Consultation Noteon 07-01-20 Consultation Note [id number]#1.00TIFF Normal [facility] HEMOGLOBIN A1Con 07-01-2023 Glucose [Mass/Vol] 117 mg/dL Normal [facility] Comment on above: Performed By: #### H A1CT #### Testing performed at [address] [address] HbA1c (Bld) [Mass fraction] 5.7 % Normal 0-6 [facility] Comment on above: Result Comment: NORMAL <5.7% PREDIABETES 5.7-6.4% DIABETES 6.5% OR HIGHER Performed By: #### H A1CT #### Testing performed at [address] [address] MRSA SCREENon 07-01-2023 MRSA DNA YANN+probe Ql (Unsp spec) Negative Normal NEGATIVE [facility] Comment on above: Performed By: #### U NEGRA, UMAC #### Testing performed at [address] [address] STAPH AUREUS SCREEN Negative Normal NEGATIVE [facility] Comment on above: Result Comment: TEST ING PERFORMED BY PCR Performed By: #### U NEGRA, UMAC #### Testing performed at [address] [address] PROTIMEon 07-01-2023 INR Coag (PPP) [Relative time] 0.97 {INR} Normal 0.85-1.10 [facility] Comment on above: Result Comment: 2.0-3.0 THERAPEUTIC RANGE 2.5-3.5 MECHANICAL VALVE RANGE Performed By: #### U NEGRA, UMAC #### Testing performed at [address] [address] PT Coag (PPP) [Time] 13.0 s Normal 11.8-14.4 [facility] Comment on above: Performed By: #### U NEGRA, UMAC #### Testing performed at [address] [address] URINE MACROSCOPICon 07-01-20 23 Bilirubin Ql (U) SMALL Abnormal NEGATIVE [facility] Comment on above: Performed By: #### U NEGRA, UMAC #### Testing performed at [address] [address] Clarity (U) CLEAR Normal CLEAR [facility] Comment on above: Performed By: #### U NEGRA, UMAC #### Testing performed at [address] [address] Color (U) YELLOW Normal YELLOW [facility] Comment on above: Performed By: #### U NEGRA, UMAC #### Testing performed at [address] [address] Glucose Ql (U) Negative Normal NEGATIVE [facility] Comment on above: Performed By: #### U NEGRA, UMAC #### Testing performed at [address] [address] pH (U) 5.5 [pH] Normal 5.0-7.0 [facility] Comment on above: Performed By: #### U NEGRA, UMAC #### Testing performed at [address] [address] URINE HEMOGLOBIN Negative Normal NEGATIVE [facility] Comment on above: Performed By: #### U NEGRA, UMAC #### Testing performed at [address] [address] URINE KETONE Negative Normal NEGATIVE [facility] Comment on above: Performed By: #### U NEGRA, UMAC #### Testing performed at [address] [address] URINE LEUKOTEST Negative Normal NEGATIVE [facility] Comment on above: Performed By: #### U NEGRA, UMAC #### Testing performed at [address] [address] URINE NITRATES Negative Normal NEGATIVE [facility] Comment on above: Performed By: #### U NEGRA, UMAC #### Testing performed at [address] [address] URINE SPEC GRAVITY >1.030 High 1.010-1.0 2 5 [facility] Comment on above: Performed By: #### U NEGRA, UMAC #### Testing performed at [address] [address] URINE TOTAL PROTEIN TRACE Abnormal NEGATIVE [facility] Comment on above: Performed By: #### U NEGRA, UMAC #### Testing performed at [address] [address] Urobilinogen Qn (U) 0.2 {Duong'U}/dL Normal 0.2-1.0 [facility] Comment on above: Performed By: #### U NEGRA, UMAC #### [place] [address] URINE MICROSCOPICon 07-01-20 23 BACTERIA 1+ Abnormal NEGATIVE [facility] Comment on above: Performed By: #### U NEGRA, UMAC #### Testing performed at [place] [id number] CASTS OCCASIONAL Abnormal NONE [facility] Comment on above: Result Comment: HYAL INE COARSELY GRANULAR Performed By: #### U NEGRA, UMAC #### Testing performed at [address] [address] CRYSTAL NONE Normal NONE [facility] Comment on above: Performed By: #### U NEGRA, UMAC #### Testing performed at [address] [address] Epithelial cells LM Ql (Urine sed) 10 TO 20 Normal [facility] Comment on above: Performed By: #### U NEGRA, UMAC #### Testing performed at [address] [address] Mucus Ql (Urine sed) Negative Normal NEGATIVE [facility] Comment on above: Performed By: #### U NEGRA, UMAC #### Testing performed at [address] [address] URINE COMMENT POSSIBLY CONTAMINATE D SPECIMEN, CULTURE MUST BE ORDERED SEPARATELY IF DEEMED NECESSARY. Normal [facility] Comment on above: Performed By: #### U NEGRA, UMAC #### Testing performed at [address] [address] URINE RBC'S Negative Normal NEGATIVE [facility] Comment on above: Performed By: #### U NEGRA, UMAC #### Testing performed at [address] [address] URINE WBC'S 1 TO 5 Normal NEGATIVE [facility] Comment on above: Performed By: #### U NEGRA, UMAC #### Testing performed at [address] [address] Consent for Procedure/Surger yon 06-30-2023 Consent for Procedure/Surgery [id number]#1.00TIFF Normal [facility] Consent for Treatmenton 06-16 Consent for Treatment [id number]#1.00TIFF Normal [facility] Discharge Instructionson Discharge Instructions [id number]#1.00TIFF Normal [facility] IntraOperative Documentson 08-30-2022 IntraOperative Documents [id number]#1.00TIFF Normal [facility] Main OR Intraoperative Recor don 06-30-2023 Main OR Intraoperative Record IntraOp Document Type FTPM Summary Primary Physician: Juwan Mendez DO Finalized Date/Time: 06/30/23 10:24:57 Pt. Name: LILO REYES/Sex: 1955 Female Med Rec #: [id number] Physician: Juwan Mendez DO Financial #: [id number] Pt. Type: P Room/Bed: / Admit/Disch: 06/30/23 07:53:37 - Institution: Case Times FTPM Entry 1 Patient Times In Room 06/30/23 10:17:00 Out Room 06/30/23 10:25:00 Procedure Times Start 06/30/23 10:20:00 Stop 06/30/23 10:24:00 Anesthesia Times Last Modified By: Mary Sullivan RN 06/30/23 10:24:47 Case Attendance FTPM Entry 1 Entry 2 Entry 3 Case Attendee Juwan Mendez DO, RN, Mary Oreilly RN, Cata Webster Role Performed Surgeon - Primary Compound Machine Operator - Primary Scrub - Primary Time In 06/30/23 10:17:00 06/30/23 10:17:00 06/30/23 10:17:00 Time Out 06/30/23 10:25:00 06/30/23 10:25:00 06/30/23 10:25:00 Procedure TRANSFORAMINAL EPIDURAL TRANSFORAMINAL EPIDURAL TRANSFORAMINAL EPIDURAL STEROID STEROID STEROID INJECTIO(Bilateral) INJECTIO(Bilateral) INJECTIO(Bilateral) Comments Last Modified By: Nate DURAN, Mary Sullivan RN, Mary Connolly RN 06/30/23 10:24:48 06/30/23 10:24:48 06/30/23 10:24:48 Entry 4 Case Attendee Cheryl Kline Role Performed Chalk Tester Time In 06/30/23 10:17:00 Time Out 06/30/23 10:25:00 Procedure TRANSFORAMINAL EPIDURAL STEROID INJECTIO(Bilateral) Comments Last Modified By: Mary Sullivan RN 06/30/23 10:24:48 Perioperative Protocols FTPM Pre-Care Text: Implements protective measures prior to operative or invasive procedure, confirms identity before the operative or invasive procedure, verifies operative procedure, surgical site, and laterality Entry 1 Procedure(s) TRANSFORAMINAL EPIDURAL Patient Identity Birthday, ID Band STEROID Verified (select at Check, Patient INJECTIO(Bilateral) least 2): Participation Consents / H and P HandP, Surgery/Procedure Operative Site Present Verified Consent Marking Verified Surgical Site Yes Laterality Verified Yes Verified Procedure Verified Yes Correct Patient Yes Position Verified Availability Equipment, Medication, Prep Dry Yes Verified (If X-ray Applicable) PreOp Antibiotic No Time Out Nate DURAN, Lucas Judge RN, Cata Webster, Juwan Mendez DO, Cheryl Kline Time Out Complete 06/30/23 10:17:00 Outcomes Met? Yes Last Modified By: Mary Sullivan RN 06/30/23 10:18:39 Post-Care Text: The patient is free from signs and symptoms of injury caused by extraneous objects Allergy Information FTPM Pre-Care Text: Verifies allergies Entry 1 Allergies Reviewed? Yes Allergies Reviewed Self/Patient With Outcomes Met? Yes Last Modified By: Mary Sullivan RN 06/30/23 10:15:57 Post-Care Text: The patient received appropriate medication(s) safely administered during the perioperative period Surgical Procedures FTPM Entry 1 Procedure Description Procedure TRANSFORAMINAL EPIDURAL Modifiers Bilateral STEROID INJECTION Surgeon Description L3/4 TFESI W/FLUORO Primary Procedure Yes Primary Surgeon Juwan Mendez DO Start 06/30/23 10:20:00 Stop 06/30/23 10:24:00 Anesthesia Type MAC Surgical Service Pain Management Wound Class 1 - Clean Last Modified By: Mary Sullivan RN 06/30/23 10:24:51 General Case Data FTPM Pre-Care Text: Classifies surgical wound, implements aseptic technique, initiates traffic control Entry 1 Case Information OR Pain Proc Room Case Level Level 2 Wound Class 1 - Clean Specialty Pain Management Preop Diagnosis M54.16 Postop Same As Preop Yes Postop Diagnosis M54.16 Outcomes Met? Yes Last Modified By: Mary Sullivan RN 06/30/23 10:18:56 Post-Care Text: The patient is free from signs and symptoms of infection Skin Assessment (Pre Procedure) FTPM Pre-Care Text: Implements protective measures to prevent skin/ tissue injury due to thermal or mechanical sources Evaluates for signs and symptoms of physical injury to skin and tissue Entry 1 Skin Integrity Intact, [place], Warm, and Skin Abnormality No Dry Outcomes Met? Yes Last Modified By: Mary Sullivan RN 06/30/23 10:16:04 Post-Care Text: The patient is free from signs and symptoms of injury caused by extraneous objects Patient Positioning FTPM Pre-Care Text: Identifies physical alterations that require additional precautions for procedure-specific positioning, verifies presence of prosthetics or corrective devices, positions the patient, evaluates the patient for signs and symptoms of injury as a result of positioning Entry 1 Procedure TRANSFORAMINAL EPIDURAL Body Position Prone STEROID INJECTIO(Bilateral) Feet Uncrossed? Yes Left Arm Position Resting at Side Right Arm Position Resting at Side Left Leg Position Extended Right Leg Position Extended Positioning Device Pillow Under Head Large, Safety Strap, Pillow Large Under Knees Pr (more content not included)... Normal [facility] Main OR Preoperative Recordo n 06-30-2023 Main OR Preoperative Record Holding Area Document Type FTPM Summary Primary Physician: Juwan Mendez DO Finalized Date/Time: 06/30/23 08:20:37 Pt. Name: LILO REYES Adan Norris/Sex: 1955 Female Med Rec #: [id number] Physician: Juwan Mendez DO Financial #: [id number] Pt. Type: P Room/Bed: / Admit/Disch: 06/30/23 07:53:37 - Institution: Case Times Holding FTPM Pre-Care Text: Verifies consent for planned procedure, identifies individual values and wishes concerning care, includes family members in perioperative teaching Secures patient's records' belongings, and valuables, maintains patient's dignity and privacy, and maintains patient confidentiality Entry 1 In Holding 06/30/23 08:06:00 Outcomes Met? Yes Last Modified By: Kandy Richardson RN 06/30/23 08:06:04 Post-Care Text: The patient participates in decisions affecting his or her perioperative plan of care The patient's right to privacy is maintained Surgery Checklist FTPM Entry 1 Patient Birthday, ID Band Procedure History and Physical, Identification: Check, Patient Verification: Surgical Consent, With Participation Patient NPO after Midnight: No Date/Time: 06/30/23 08:06:00 Results Reviewed 0700 cup of coffee Personal Items: Cataract Lens Implant, Comments: Jewelry Personal Items Pt. wearing a watch and Complaints of Pain: Yes Comment: a pair of earrings. Pain Comment: 9/10 lower back pain Operative Site Yes Marking: Marked By: Dr. Mendez Location: bilateral L3-L4 Availability Equipment, X-Ray Verified: Does Patient Smoke No Patient states Yes Comment - Adult -Bill postop adult Supervision supervision available Case Cancelled in No Holding Area see comments below for reason Last Modified By: Kandy Richardson RN 06/30/23 08:20:35 Finalized By: Kandy Richardson RN Document Signatures Signed By: Kandy Richardson RN 06/30/23 08:12 Kandy Richardson RN 06/30/23 08:20 Normal [facility] Giardia, Direct, EIAon 06-25 G. lamblia Ag IA Ql (Stl) Negative Invalid Interpretation Code Negative [facility] Comment on above: Result Comment: Perf ormed at: [address] [id number] PhD Adbiel Phan Performed By: #### 1 [id number] ####[facility] [address] [place] [address] Rota Abon 06-25-2023 Rotavirus Ag IA Ql (Stl) COMMENT Invalid Interpretation Code [facility] Comment on above: Result Comment: Test not performed. No clean vial stool received. CONTACTED [facility] 06/25/23 Performed at: [address] [id number] PhD Abdiel Phan Performed By: #### 1 [id number], [id number], [id number] ####[facility] [address] [place] [address] SPEC. STATUS REPORTon 2022 Specimen Status Report COMMENT Invalid Interpretation Code [facility] Comment on above: Result Comment: Test not performed. No clean vial stool received. TEST: [id number] Rotavirus Ag, EIA CONTACTED [facility] 06/25/23 Performed at: [address] [id number] PhD Abdiel Phan Performed By: #### 1 [id number] ####[facility] [address] [place] [address] C. diff by PCRon 06-24-2023 C. diff by PCR Specimen Negative fo r toxigenic C. difficile by DNA amplification. Duplicate specimens will not be accepted on this patient for the next 7 days. Published data on the sensitivity of molecular assays suggest there is no diagnostic value in repeat testing of samples in close time sequence. Normal Negative [facility] Comment on above: Result Comment: This test result should be correlated with clinical presentations and medical history by a healthcare provider to determine its clinical significance.\.br\.br\ Other Comment: Order added by Discern Expert. Clostridium difficile by PCR Negative Normal Negative [facility] Comment on above: Order Comment: Order added by Discern Expert. Result Comment: This test result should be correlated with clinical presentations and medical history by a healthcare provider to determine its clinical significance. Performed By: #### 1 [id number], [id number], [id number], [id number], [id number] ####[facility] [address] [place] [address] CDiff PCRon 06-24-2023 CDiff PCR Specimen has been fo und to be acceptable for C. difficile testing. Normal [facility] Cdiff Specimen Acceptable Acceptable Normal [facility] Comment on above: Performed By: #### 1 [id number], [id number], [id number], [id number] ####[facility] [address] [place] [address] Order Cancelled No, PCR to follow Normal [facility] Comment on above: Performed By: #### 1 [id number], [id number], [id number], [id number], [id number] ####[facility] [address] [place] [address] Fecal WBC Lactoferrinon Lactoferrin Ql (Stl) Negative Normal Negative [facility] Comment on above: Result Comment: The semi-quantitative detection of elevated levels of fecal lactoferrin is a marker for fecal leukocytes and an indication of intestinal inflammation. Performed By: #### 1 [id number], [id number], [id number], [id number], [id number], [id number] ####[facility] [address] [place] [address] Nurse Consultation Noteon Nurse Consultation Note Reason for Visit drop off sample today. Assessment/Plan BMI 34.0-34.9,adult (Z68.34: Body mass index [BMI] 34.0-34.9, adult) Left upper quadrant pain (R10.12: Left upper quadrant pain) Non-smoker (Z78.9: Other specified health status) Watery stools (R19.5: Other fecal abnormalities) Medications aspirin 81 mg Oral EC Tab, 81 mg= 1 tab(s), Oral, Daily calcium (as carbonate) 600 mg oral tablet, 1200 mg= 2 tab(s), Oral, Daily celecoxib 200 mg Cap, 200 mg= 1 cap(s), Oral, BID cranberry, See Instructions cyclobenzaprine 10 mg Tab, 10 mg= 1 tab(s), Oral, TID, PRN docusate, See Instructions estradiol, See Instructions Lopressor 25 mg oral tablet magnesium oxide 400 mg Tab, See Instructions melatonin, See Instructions methylPREDNISolone 4 mg tab dosepak, 1 packet(s), Oral, Once potassium chloride 99 mg oral tablet, 99 mg= 1 tab(s), Oral, Daily Tylenol 325 mg oral capsule, 650 mg= 2 cap(s), Oral, q4hr, PRN Allergies amoxicillin (Edema of face) Immunizations Vaccine Date Status Comments zoster vaccine live 02/12/2023 Recorded SARS-CoV-2 (COVID-19) [id number].[id number] 02/12/2023 Recorded influenza virus vaccine, inactivated 06/08/2022 Recorded SARS-CoV-2 (COVID-19) mRNAMUL.ORD![id number] 06/08/2022 Recorded SARSCoV2 mRNA(wdydfugik-cpef-eblcba) vac 11/28/2021 Recorded influenza virus vaccine, inactivated 06/24/2021 Recorded SARS-CoV-2 (COVID-19) mRNA BNT-162b2 vax 05/15/2021 Recorded 2023-01-22: [id number] SARS-CoV-2 (COVID-19) mRNA BNT-162b2 vax 10/18/2020 Recorded SARS-CoV-2 (COVID-19) mRNA BNT-162b2 vax 09/27/2020 Recorded pneumococcal 23-valent vaccine 05/08/2020 Recorded influenza virus vaccine, inactivated 05/08/2020 Recorded influenza virus vaccine, inactivated 06/27/2019 Recorded pneumococcal 13-valent vaccine 10/09/2018 Recorded pneumococcal 23-valent vaccine 09/07/2018 Recorded influenza virus vaccine, inactivated 05/16/2018 Recorded influenza virus vaccine, inactivated 05/17/2017 Recorded influenza virus vaccine, inactivated 07/05/2014 Recorded Normal [facility] Outside Mammographyon 2022 Outside Mammography [id number]#[id number] Normal [facility] Ambulatory Visit Summaryon 1 08-22-2022 Ambulatory Visit Summary LILO REYES :1955 Visit Date:06/22/2023 Ambulatory Visit Instructions Your Diagnosis Left upper quadrant pain Watery stools BMI 34.0-34.9,adult Non-smoker Your Care Team Attending Physician - Jaci Tee Primary Care Physician - Jaci Tee This Is Your Medications List acetaminophen (Tylenol 325 mg oral capsule) aspirin (aspirin 81 mg Oral EC Tab) calcium carbonate (calcium (as carbonate) 600 mg oral tablet) celecoxib (celecoxib 200 mg Cap) cranberry cyclobenzaprine (cyclobenzaprine 10 mg Tab) docusate estradiol magnesium oxide (magnesium oxide 400 mg Tab) melatonin methylPREDNISolone (methylPREDNISolone 4 mg tab dosepak) metoprolol (Lopressor 25 mg oral tablet) potassium chloride (potassium chloride 99 mg oral tablet) Procedures Performed Injection of sacroiliac joint using fluoroscopic guidance (05/12/2023), Injection of sacroiliac joint using fluoroscopic guidance (01/20/2023), Injection of facet joint using fluoroscopic guidance (11/18/2022), History of left knee replacement (2021), Cataract surgery (2020), History of spinal fusion (2020), History of carpal tunnel decompression (2018), History of urinary bladder surgery (2011), Abdominal hysterectomy (1998), Arthroscopy of knee (1998), History of repair of rotator cuff (1986), Stripping of vein (1985), Appendectomy (1983), Cholecystectomy (1983), History of tonsillectomy (1957). Discharge Vitals Heart Rate (Peripheral) 68 Respiratory Rate 18 Blood Pressure 118/74 Height 160 cm Height 63 in Weight 88.5 kg Weight 194.7 lb BMI 34.57 What to do next Scheduled Follow-Up Appointments Wednesday 9:45 AM EST With: Where: [facility] Wednesday 10:00 AM EST With: Jaci Tee Where: [facility] Normal [facility] Office/Clini c Noteon 06-22-2023 Family Medicine Office/Clinic Note HPI Staff Lilo is a 67 year old female presenting for acute visit Pain characteristics: Pain location: under left arm on left side Intensity:5/10 Onset: (OV 01/22/23)one going flared up again 05/29/23 previous appt. here was given cyclobenzaprine and methylprednisolone and that did help Medication used: pt states she has been having watery stools since first part of May. has been taking Pepto Bismol, Kaopectate pt does have history of C-diff. History of Present Illness pt presents today for left upper quadrant pain and diarrhea Review of Systems PHQ Score Initial Depression Screen Score: 0 ROS - Provider Constitutional: no fever, no chills, no sweats, no fatigue Respiratory: no shortness of breath, no cough, no orthopnea, no wheezing. Cardiovascular: no chest pain, no palpitations, no edema. Neurologic: no headache, no dizziness, no numbness, no weakness. Left upper quadrant pain, watery stools Physical Exam Vitals & Measurements HR: 68(Peripheral) RR: 18 BP: 118/74 SpO2: 97% HT: 63 in HT: 160 cm WT: 88.5 kg WT: 194.7 lb BMI: 34.57 General: alert, no acute distress ENMT: oral mucosa moist, no pharyngeal erythema or exudate Cardiovascular: regular rate and rhythm, normal peripheral perfusion Respiratory: Lungs CTA, respirations non labored Extremities: no deformity, no trauma Neurological: oriented x 4, LOC appropriate for age, CN II-XII intact, motor strength equal & normal bilaterally, speech normal Assessment/Plan 1. Left upper quadrant pain (R10.12: Left upper quadrant pain) Pt presents today with complaint of left upper quadrant pain. this has been going on for several months. we ordered xray at last visit in January that was negative. pt is scheduled for colonoscopy in August and mammogram tomorrow. pt is also having watery stools. will give her supplies to obtain stool sample. she will take it to hospital. will order medrol and muscle relaxer for left quad pain. pt states that helped the last time. all questions answered. RTC as needed Ordered: Clostridium Difficile PCR Fecal WBC Lactoferrin Giardia lamblia, Direct Detection EIA Rotavirus Ab 2. Watery stools (R19.5: Other fecal abnormalities) will send stool sample to [facility] Ordered: Clostridium Difficile PCR Fecal WBC Lactoferrin Giardia lamblia, Direct Detection EIA Rotavirus Ab 3. BMI 34.0-34.9,adult (Z68.34: Body mass index [BMI] 34.0-34.9, adult) BMI education complete Ordered: Clostridium Difficile PCR Fecal WBC Lactoferrin Giardia lamblia, Direct Detection EIA Rotavirus Ab 4. Non-smoker (Z78.9: Other specified health status) continue not smoking Ordered: Clostridium Difficile PCR Fecal WBC Lactoferrin Giardia lamblia, Direct Detection EIA Rotavirus Ab Orders: cyclobenzaprine, 10 mg = 1 tab(s), Oral, TID, PRN for spasm, # 30 tab(s), Refills(s) 0, Pharmacy: [facility]/pharmacy #[id number], 160, cm, 06/22/23 9:45:00 EST, Height/Length Dosing, 88.5, kg, 06/22/23 9:45:00 EST, Weight Dosing methylPREDNISolone, = 1 packet(s), Oral, Once, as directed on package labeling, # 21 tab(s), Refills(s) 0, Pharmacy: [facility]/pharmacy #[id number], 160, cm, 06/22/23 9:45:00 EST, Height/Length Dosing, 88.5, kg, 06/22/23 9:45:00 EST, Weight Dosing Follow-up No qualifying data available Problem List/Past Medical History Ongoing H/O gastroesophageal reflux (GERD) H/O: osteoarthritis HTN (hypertension) Left upper quadrant pain Lower back pain Muscle spasm Rib pain on left side Sacroiliitis Watery stools Historical No qualifying data Procedure/Surgical History Injection of sacroiliac joint using fluoroscopic guidance (05/12/2023), Injection of sacroiliac joint using fluoroscopic guidance (01/20/2023), Injection of facet joint using fluoroscopic guidance (11/18/2022), History of left knee replacement (2021), Cataract surgery (2020), History of spinal fusion (2020), History of carpal tunnel decompression (2018), History of urinary bladder surgery (2011), Abdominal hysterectomy (1998), Arthroscopy of knee (1998), History of repair of rotator cuff (1986), Stripping of vein (1985), Appendectomy (1983), Cholecystectomy (1983), History of tonsillectomy (1957). Medications aspirin 81 mg Oral EC Tab, 81 mg= 1 tab(s), Oral, Daily calcium (as carbonate) 600 mg oral tablet, 1200 mg= 2 tab(s), Oral, Daily celecoxib 200 mg Cap, 200 mg= 1 cap(s), Oral, BID cranberry, See Instructions cyclobenzaprine 10 mg Tab, 10 mg= 1 tab(s), Oral, TID, PRN docusate, See Instructions estradiol, See Instructions Lopressor 25 mg oral tablet magnesium oxide 400 mg Tab, See Instructions melatonin, See Instructions methylPREDNISolone 4 mg tab dosepak, 1 packet(s), Oral, Once potassium chloride 99 mg oral tablet, 99 mg= 1 tab(s), Oral, Daily Tylenol 325 mg oral capsule, 650 mg= 2 cap(s), Oral, q4hr, PRN Allergies amoxicillin (Edema of face) Social History Alcohol - No Risk, 11/05/2022 Current, 1-2 times per week, 11/05/2022 Alcazar (more content not included)... [facility] Comment on above: Result Comment: Elec tronically Signed By: Jaci Tee\.br\Date and Time Signed: 06/22/23 10:11 EST Patient Correspondenceon Patient Correspondence [id number]#1.00TIFF [facility] Consent for Treatmenton 05-17 Consent for Treatment [id number]#1.00TIFF [facility] Consultation Noteon 06-10-20 Consultation Note Patient: OMEGA REYES Age: 67 years Sex: Female : 1955 Associated Diagnoses: None Author: Juwan Mendez DO Chief Complaint 06/10/2023 7:55 EDT left side low back/buttock pain History of Present Illness Patient is presen as a follow-up visit after left sacroiliac joint injection. She states she received at least 50% pain relief ongoing for this injection. She feels that she does have pain in the slightly different spot where it radiates from her back across the anterior aspect of her leg to the knee inside of her thighs bilaterally. This does not typically cross below the knees and does happen on both sides with the left being more for her than the right. She states that her pain is typically an 8/10 in severity when this is exacerbated by standing or walking it can be a sharp/stabbing sensation and also a numb/tingling sensation. 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 She did have a L4 and 5 spinal fusion in 2020. For which she said she had significant improvement for a bit but has had this pain in this area over the past few months. She like to know if we can do anything else about this pain at present. ANN Score: 36% PHQ-2: 0 Patient denies any symptoms of progressively worsening upper/lower extremity weakness, progressively worsening gait abnormality, new onset bowel/bladder incontinence/ urinary retention, or saddle anesthesia. No new or worsening symptoms of fever, chills, night sweats. Health Status Allergies: Allergic Reactions (All) Severity Not Documented Amoxicillin- Edema of face., Allergies (1) Active Reaction amoxicillin Edema of face Current medications: Home Medications (13) Active aspirin 81 mg Oral EC Tab 81 mg = 1 tab(s), Oral, Daily calcium (as carbonate) 600 mg oral tablet 1,200 mg = 2 tab(s), Oral, Daily celecoxib 200 mg Cap 200 mg = 1 cap(s), Oral, BID cranberry See Instructions docusate See Instructions estradiol See Instructions gabapentin 300 mg Cap See Instructions Lopressor 25 mg oral tablet loratadine 10 mg, Oral, Daily magnesium oxide 400 mg Tab See Instructions melatonin See Instructions potassium chloride 99 mg oral tablet 99 mg = 1 tab(s), Oral, Daily Tylenol 325 mg oral capsule 650 mg = 2 cap(s), PRN, Oral, q4hr , No qualifying data available Histories Past Medical History: No active or resolved past medical history items have been selected or recorded. Family History: Hypertension Father Diabetes mellitus type 2 Sister Father Primary malignant neoplasm of female breast Mother Acute myocardial infarction Father Hyperlipidemia Father Lung cancer Father Mother Procedure history: Left SIJI ([id number]) on 05/12/2023 at 67 Years. Comments: 06/10/2023 7:56 Mary Elias RN Left SIJI-50% relief x 2 weeks. Left SIJI ([id number]) on 01/20/2023 at 67 Years. Comments: 02/19/2023 10:46 Mary Elias RN Left SIJI-100% x 2 weeks Injection of facet joint using fluoroscopic guidance ([id number]) on 11/18/2022 at 67 Years. Comments: 12/17/2022 10:25 Cata Shaikh RN Left L5/S1 MBB 50% relief History of left knee replacement (655280244536047) in 2021 at 67 Years. History of spinal fusion (7177928937) in 2020 at 66 Years. Cataract surgery (593182976) in 2020 at 66 Years. History of carpal tunnel decompression (3238842515) in 2018 at 64 Years. History of urinary bladder surgery (579786698747144) in 2011 at 57 Years. Abdominal hysterectomy (148474228) in 1998 at 44 Years. Arthroscopy of knee (131462207) in 1998 at 44 Years. History of repair of rotator cuff (1684596327) in 1986 at 32 Years. Stripping of vein (292361832) in 1985 at 31 Years. Appendectomy (049271980) in 1983 at 29 Years. Cholecystectomy (46296324) in 1983 at 29 Years. History of tonsillectomy (6086121790) in 1957 at 3 Years. Physical Examination Vital Signs (last 24 hrs) Last Charted Heart Rate Peripheral L 48bpm (JUN 10 07:55) SBP 115 mmHg (JUN 10 07:55) DBP 61 mmHg (JUN 10 07:55) Weight 86.18 kg (JUN 10 07:55) BMI 33.66 (JUN 10 07:55) General: No acute distress. Patient appears well-nourished. HEENT: Head is normocephalic and external ears are normal in appearance. Cardiovascular: No signs of poor perfusion and no peripheral edema Pulmonary: Nonlabored breathing, symmetric chest movement. GI: Abdomen nondistended Integumentary: No lesions Musculoskeletal: Tenderness to palpation lumbar paraspinal musculature. Neurologic: Alert, oriented x3. 5/5 strength grossly in the bilateral lower extremities. Sensation intact to light touch in the bilateral lower extremities. Special Testing: Negative Dennis sign bilaterally, 1+ patellar reflexes bilaterally, seated straight leg raise test did reproduce mild radicular symptoms on the left and the right reproduced axial back pain only, F (more content not included)... Normal [facility] Comment on above: Result Comment: Elec tronically Signed By: Juwan Mendez DO.br\Date and Time Signed: 06/10/23 08:25 EDT Office/Clinic Note-Physician on 06-10-2023 Office/Clinic Note-Physician [id number]#1.00TIFF Normal [facility] Patient Correspondenceon Patient Correspondence [id number]#1.00TIFF Normal [facility] Patient Correspondence [id number]#1.00TIFF Normal [facility] Patient Correspondence [id number]#1.00TIFF Normal [facility] Patient History Officeon Patient History Office [id number]#1.00TIFF [facility] Consent for Procedure/Surger yon 05-13-2023 Consent for Procedure/Surgery [id number]#1.00CD:127 [facility] Discharge Instructionson Discharge Instructions [id number]#1.00CD:127 [facility] IntraOperative Documentson 0 05-13-2023 IntraOperative Documents [id number]#1.00CD:127 Normal [facility] Consent for Treatmenton 04-17 Consent for Treatment [id number]#1.00CD:127 [facility] Main OR Intraoperative Recor don 05-12-2023 Main OR Intraoperative Record IntraOp Document Type FTPM Summary Primary Physician: Juwan Mendez DO Finalized Date/Time: 05/12/23 14:16:06 Pt. Name: LILO REYES/Sex: 1955 Female Med Rec #: [id number] Physician: Juwan Mendez DO Financial #: [id number] Pt. Type: P Room/Bed: / Admit/Disch: 05/12/23 13:25:35 - Institution: Case Times FTPM Entry 1 Patient Times In Room 05/12/23 14:08:00 Out Room 05/12/23 14:16:00 Procedure Times Start 05/12/23 14:11:00 Stop 05/12/23 14:15:00 Anesthesia Times Last Modified By: Mary Sullivan RN 05/12/23 14:16:00 Case Attendance FTPM Entry 1 Entry 2 Entry 3 Case Attendee Juwan Mendez DO, RN, Mary Yan RN, Altagracia Trejo Role Performed Surgeon - Primary Compound Machine Operator - Primary Scrub - Primary Time In 05/12/23 14:08:00 05/12/23 14:08:00 05/12/23 14:08:00 Time Out 05/12/23 14:16:00 05/12/23 14:16:00 05/12/23 14:16:00 Procedure SACROILIAC JOINT SACROILIAC JOINT SACROILIAC JOINT INJECTION(Left) INJECTION(Left) INJECTION(Left) Comments Last Modified By: Nate DURAN, Mary Sullivan RN, Mary Connolly RN 05/12/23 14:16:01 05/12/23 14:16:01 05/12/23 14:16:01 Entry 4 Case Attendee Cheryl Kline Role Performed Chalk Tester Time In 05/12/23 14:08:00 Time Out 05/12/23 14:16:00 Procedure SACROILIAC JOINT INJECTION(Left) Comments Last Modified By: Mary Sullivan RN 05/12/23 14:16:01 Perioperative Protocols FTPM Pre-Care Text: Implements protective measures prior to operative or invasive procedure, confirms identity before the operative or invasive procedure, verifies operative procedure, surgical site, and laterality Entry 1 Procedure(s) SACROILIAC JOINT Patient Identity Birthday, ID Band INJECTION(Left) Verified (select at Check, Patient least 2): Participation Consents / H and P HandP, Surgery/Procedure Operative Site Present Verified Consent Marking Verified Surgical Site Yes Laterality Verified Yes Verified Procedure Verified Yes Correct Patient Yes Position Verified Availability Equipment, Medication, Prep Dry Yes Verified (If X-ray Applicable) Time Out Mary Sullivan RN Time Out Complete 05/12/23 14:08:00 Participants Yuriy DURAN, Andrea Ballesteros DO, Bradford A., Ott, Amy Outcomes Met? Yes Last Modified By: Mary Sullivan RN 05/12/23 14:11:24 Post-Care Text: The patient is free from signs and symptoms of injury caused by extraneous objects Allergy Information FTPM Pre-Care Text: Verifies allergies Entry 1 Allergies Reviewed? Yes Allergies Reviewed Self/Patient With Outcomes Met? Yes Last Modified By: Mary Sullivan RN 05/12/23 14:07:54 Post-Care Text: The patient received appropriate medication(s) safely administered during the perioperative period Surgical Procedures FTPM Entry 1 Procedure Description Procedure SACROILIAC JOINT Modifiers Left INJECTION Surgeon Description SI JOINT INJECTION Primary Procedure Yes Primary Surgeon Juwan Mendez DO Start 05/12/23 14:11:00 Stop 05/12/23 14:15:00 Anesthesia Type None Surgical Service Pain Management Wound Class 1 - Clean Last Modified By: Mary Sullivan RN 05/12/23 14:16:03 General Case Data FTPM Pre-Care Text: Classifies surgical wound, implements aseptic technique, initiates traffic control Entry 1 Case Information OR Pain Proc Room Case Level Level 2 Wound Class 1 - Clean Specialty Pain Management Preop Diagnosis M46.1 Postop Same As Preop Yes Postop Diagnosis M46.1 Outcomes Met? Yes Last Modified By: Mary Sullivan RN 05/12/23 14:11:37 Post-Care Text: The patient is free from signs and symptoms of infection Skin Assessment (Pre Procedure) FTPM Pre-Care Text: Implements protective measures to prevent skin/ tissue injury due to thermal or mechanical sources Evaluates for signs and symptoms of physical injury to skin and tissue Entry 1 Skin Integrity Intact, [place], Warm, and Skin Abnormality No Dry Outcomes Met? Yes Last Modified By: Mary Sullivan RN 05/12/23 14:08:20 Post-Care Text: The patient is free from signs and symptoms of injury caused by extraneous objects Patient Positioning FTPM Pre-Care Text: Identifies physical alterations that require additional precautions for procedure-specific positioning, verifies presence of prosthetics or corrective devices, positions the patient, evaluates the patient for signs and symptoms of injury as a result of positioning Entry 1 Procedure SACROILIAC JOINT Body Position Prone INJECTION(Left) Feet Uncrossed? Yes Left Arm Position Resting at Side Right Arm Position Resting at Side Left Leg Position Extended Right Leg Position Extended Positioning Device Pillow Under Head Large, Safety Strap, Pillow Large Under Knees Press Points Checked Yes By Mary Sullivan RN Outcomes Met? Yes Last Modified By: Mary Sullivan RN 05/12/23 14:11:46 Post-Care Text: The venus (more content not included)... Normal [facility] Main OR Preoperative Recordo n 05-12-2023 Main OR Preoperative Record Holding Area Document Type FTPM Summary Primary Physician: Juwan Mendez DO Finalized Date/Time: 05/12/23 13:41:14 Pt. Name: LILO REYES/Sex: 1955 Female Med Rec #: [id number] Physician: Juwan Mendez DO Financial #: [id number] Pt. Type: P Room/Bed: / Admit/Disch: 05/12/23 13:25:35 - Institution: Case Times Holding FTPM Pre-Care Text: Verifies consent for planned procedure, identifies individual values and wishes concerning care, includes family members in perioperative teaching Secures patient's records' belongings, and valuables, maintains patient's dignity and privacy, and maintains patient confidentiality Entry 1 In Holding 05/12/23 13:39:00 Outcomes Met? Yes Last Modified By: Angela Hu RN 05/12/23 13:39:22 Post-Care Text: The patient participates in decisions affecting his or her perioperative plan of care The patient's right to privacy is maintained Surgery Checklist FTPM Entry 1 Patient Birthday, ID Band Procedure History and Physical, Identification: Check, Patient Verification: Surgical Consent, With Participation Patient NPO after Midnight: n/a Date/Time: 05/12/23 11:45:00 Results Reviewed salad with chicken Personal Items: Cataract Lens Implant Comments: Personal Items bilateral cataract Complaints of Pain: Yes Comment: surgey Pain Comment: 04/25 to left lower back Operative Site Yes Marking: Marked By: operative site marked Location: Left SIJ by Dr. Mendez Availability Equipment, X-Ray Verified: Does Patient Smoke No Patient states Yes Comment - Adult Bill-spouse postop adult Supervision supervision available Case Cancelled in No Holding Area see comments below for reason Last Modified By: Angela Hu RN 05/12/23 13:41:08 Finalized By: Angela Hu RN Document Signatures Signed By: Angela Hu RN 05/12/23 13:41 Normal [facility] Consultation Noteon 05-07-20 Consultation Note [id number]#1.00CD:127 Normal [facility] Patient Correspondenceon Patient Correspondence [id number]#1.00CD:127 Normal [facility] Consent for Treatmenton 04-16 Consent for Treatment [id number]#1.00CD:127 Normal [facility] Consultation Noteon 04-28-20 Consultation Note Patient: OMEGA REYES Age: 67 years Sex: Female : 1955 Associated Diagnoses: None Author: Juwan Mendez DO Chief Complaint 04/28/2023 13:05 EDT lower back pain History of Present Illness Patient is presenting with complaints of left-sided buttock pain. She does have a history of sacroiliitis that intermittently flares. She responded well to sacroiliac joint injections in the provided near complete relief in the past. This pain is sharp/stabbing sensation can be 9/10 in severity, exacerbated by prolonged sitting for long standing or transitioning from sitting to standing position. The pain is nonradiating in nature and is isolated to her low back and left buttock. She has had minimal relief from gabapentin and would like to see what else can be done about this pain. ANN Score: 30% PHQ-2: 0 Patient denies any symptoms of progressively worsening upper/lower extremity weakness, progressively worsening gait abnormality, new onset bowel/bladder incontinence/ urinary retention, or saddle anesthesia. No new or worsening symptoms of fever, chills, night sweats. Health Status Allergies: Allergic Reactions (All) Severity Not Documented Amoxicillin- Edema of face., Allergies (1) Active Reaction amoxicillin Edema of face Current medications: (Selected) Prescriptions Prescribed gabapentin 300 mg Cap: See Instructions, 1 cap(s) Oral Bedtime, increase per titration schedule up to 2 caps TID, # 180 cap(s), Refills(s) 0, Pharmacy: [facility]/pharmacy #[id number], 160, cm, 04/02/23 9:46:00 EDT, Height/Length Dosing, 95.7, kg, 02/19/23 10:50:00 EDT, Weight Dosing Documented Medications Documented Lopressor 25 mg oral tablet: TAKE 1/2 TABLET BY MOUTH TWICE DAILY Tylenol 325 mg oral capsule: 650 mg = 2 cap(s), Oral, q4hr, PRN as needed for pain, Refills(s) 0 aspirin 81 mg Oral EC Tab: 81 mg = 1 tab(s), Oral, Daily, Refills(s) 0 calcium (as carbonate) 600 mg oral tablet: 1,200 mg = 2 tab(s), Oral, Daily, Refills(s) 0 celecoxib 200 mg Cap: 200 mg = 1 cap(s), Oral, BID, Refills(s) 0 cranberry: See Instructions, Refill(s) 0, 500 mg daily docusate: See Instructions, twice daily, Refills(s) 0 estradiol: See Instructions, once weekly, Refills(s) 0 loratadine: 10 mg, Oral, Daily, Refills(s) 0 magnesium oxide 400 mg Tab: See Instructions, once daily, Refills(s) 0 melatonin: See Instructions, nightly, Refills(s) 0 potassium chloride 99 mg oral tablet: 99 mg = 1 tab(s), Oral, Daily, # 100 tab(s), Refills(s) 0, Home Medications (13) Active aspirin 81 mg Oral EC Tab 81 mg = 1 tab(s), Oral, Daily calcium (as carbonate) 600 mg oral tablet 1,200 mg = 2 tab(s), Oral, Daily celecoxib 200 mg Cap 200 mg = 1 cap(s), Oral, BID cranberry See Instructions docusate See Instructions estradiol See Instructions gabapentin 300 mg Cap See Instructions Lopressor 25 mg oral tablet loratadine 10 mg, Oral, Daily magnesium oxide 400 mg Tab See Instructions melatonin See Instructions potassium chloride 99 mg oral tablet 99 mg = 1 tab(s), Oral, Daily Tylenol 325 mg oral capsule 650 mg = 2 cap(s), PRN, Oral, q4hr , No qualifying data available Histories Past Medical History: No active or resolved past medical history items have been selected or recorded. Family History: Hypertension Father Diabetes mellitus type 2 Sister Father Primary malignant neoplasm of female breast Mother Acute myocardial infarction Father Hyperlipidemia Father Lung cancer Father Mother Procedure history: Left SIJI (1267015313) on 01/20/2023 at 67 Years. Comments: 02/19/2023 10:46 SONIA Sullivan RN, Mary Berry Left SIJI-100% x 2 weeks Injection of facet joint using fluoroscopic guidance (1493893140) on 11/18/2022 at 67 Years. Comments: 12/17/2022 10:25 Cata Shaikh RN Left L5/S1 MBB 50% relief History of left knee replacement (328154772233230) in 2021 at 67 Years. History of spinal fusion (9637376191) in 2020 at 66 Years. Cataract surgery (472828130) in 2020 at 66 Years. History of carpal tunnel decompression (8932533320) in 2018 at 64 Years. History of urinary bladder surgery (659079371101775) in 2011 at 57 Years. Abdominal hysterectomy (056473694) in 1998 at 44 Years. Arthroscopy of knee (002896869) in 1998 at 44 Years. History of repair of rotator cuff (0802260150) in 1986 at 32 Years. Stripping of vein (435959315) in 1985 at 31 Years. Appendectomy (047566374) in 1983 at 29 Years. Cholecystectomy (37831186) in 1983 at 29 Years. History of tonsillectomy (6542683068) in 1957 at 3 Years. Social History Social & Psychosocial Habits Alcohol 11/05/2022 Use: Current Frequency: 1-2 times per week 11/05/2022 Risk Assessment: No Risk Substance Abuse 11/05/2022 Risk Assessment: Denies Substance Abuse 01/22/2023 Concerns about substance abuse in household: No Tobacco 11/05/2022 Risk Assessment: Denies Tobacco Use 01/22/2023 Tobacco Use: Never (less than 100 in (more content not included)... [facility] Comment on above: Result Comment: Elec tronically Signed By: Juwan Mendez DO.br\Date and Time Signed: 04/28/23 14:27 EDT Office/Clinic Note-Physician on 04-28-2023 Office/Clinic Note-Physician [id number]#1.00CD:127 [facility] Patient Correspondenceon Patient Correspondence [id number]#1.00CD:127 [facility] Patient Correspondence [id number]#1.00CD:127 [facility] Patient History Officeon Patient History Office [id number]#1.00CD:127 [facility] Consent for Treatmenton 03-16 Consent for Treatment [id number]#1.00CD:127 [facility] Consultation Noteon 04-02-20 Consultation Note Patient: OMEGA REYES Age: 67 years Sex: Female : 1955 Associated Diagnoses: None Author: Louise Owusu PA-C Subjective Chief complaint 04/02/2023 9:34 EDT Lower back pain and L knee pain . Patient is a 67-year-old female. She presents today for follow-up after trialing Lyrica. Unfortunate, she was unable to sleep despite the use of her sick medications with it so she stopped taking it. She continues to have left buttock pain and left knee pain. She does not feel that the 2 are connected. She states that something pulled behind the knee intermittently and she is seeing Dr. Garay because she had a knee replacement in August 2021 and things just never progressed how she expected. She was recently started on meloxicam by him but it caused stomach issues and diarrhea so she stopped it. She has been doing physical therapy and she states that the legs that have been making her worse. She has done acupuncture. She does not feel that this is helped. Patient previously underwent left-sided sacroiliac joint injection. This was done on 01/20/2023 and gave her 100% relief for 2 weeks followed by a continued 50% relief. She still feels some relief from this but states that things are just not progressing how she hopes them to. She still has pain that is an 8/10. She states that she took gabapentin in the past low-dose that she does not remember having any problems with. Health Status Allergies: Allergic Reactions (Selected) Severity Not Documented Amoxicillin- Edema of face., Allergies (1) Active Reaction amoxicillin Edema of face Current medications: (Selected) Prescriptions Prescribed pregabalin 50 mg Cap: 50 mg = 1 cap(s), Oral, Bedtime, X 30 day(s), # 30 cap(s), Refills(s) 1, Pharmacy: [facility]/pharmacy #[id number], 160, cm, 02/19/23 10:50:00 EDT, Height/Length Dosing, 95.7, kg, 02/19/23 10:50:00 EDT, Weight Dosing Documented Medications Documented Lopressor 25 mg oral tablet: TAKE 1/2 TABLET BY MOUTH TWICE DAILY Tylenol 325 mg oral capsule: 650 mg = 2 cap(s), Oral, q4hr, PRN as needed for pain, Refills(s) 0 aspirin 81 mg Oral EC Tab: 81 mg = 1 tab(s), Oral, Daily, Refills(s) 0 calcium (as carbonate) 600 mg oral tablet: 1,200 mg = 2 tab(s), Oral, Daily, Refills(s) 0 celecoxib 200 mg Cap: 200 mg = 1 cap(s), Oral, BID, Refills(s) 0 cranberry: See Instructions, Refill(s) 0, 500 mg daily docusate: See Instructions, twice daily, Refills(s) 0 estradiol: See Instructions, once weekly, Refills(s) 0 loratadine: 10 mg, Oral, Daily, Refills(s) 0 magnesium oxide 400 mg Tab: See Instructions, once daily, Refills(s) 0 melatonin: See Instructions, nightly, Refills(s) 0 potassium chloride 99 mg oral tablet: 99 mg = 1 tab(s), Oral, Daily, # 100 tab(s), Refills(s) 0 Problem list: All Problems HTN (hypertension) / SNOMED CT 9833321277 / Confirmed H/O gastroesophageal reflux (GERD) / SNOMED CT 1516143759 / Confirmed H/O: osteoarthritis / SNOMED CT 565340379 / Confirmed Lower back pain / SNOMED CT 858037293 / Confirmed Rib pain on left side / SNOMED CT 829517584 / Confirmed Muscle spasm / SNOMED CT 43868122 / Confirmed Objective Vital Signs 04/02/2023 9:34 EDT Peripheral Pulse Rate 44 bpm LOW Respiratory Rate 14 br/min Systolic Blood Pressure 131 mmHg Diastolic Blood Pressure 66 mmHg Mean Arterial Pressure, Cuff 88 mmHg General: Alert and oriented, No acute distress. Eye: Normal conjunctiva. HENT: Normocephalic, Normal hearing. Cardiovascular: No edema. Musculoskeletal Normal range of motion. Normal strength. 5/5 lower extremity strength Some pain with flexion and extension of the left knee Integumentary: Warm, Dry, [place]. Neurologic: Alert, Oriented. Psychiatric: Cooperative, Appropriate mood & affect. Impression and Plan Patient is a 67-year-old female with a past medical history seen for lumbosacral spondylosis, previous lumbar fusion, sacroiliitis and previous left knee replacement. She is still having a lot of issues with her left knee replacement. She states that this gives her pain and affects her ambulatory status. She is seeing Dr. Garay for this. She has an appointment in May. She is thinking that she may need to have a revision and she is considering pursuing this. We had a long discussion of this and the other pains that she is experiencing. At this time, I would recommend her to continue follow-up with Dr. Garay. For left buttock pain previous left-sided sacroiliac joint injection did give her relief. We discussed since she did not tolerate the Lyrica once again trying gabapentin. She was on gabapentin in the past. She did not have any side effects which she stopped after her previous surgery. Since she seemed to tolerate it okay I gave her a titration schedule over the next few weeks to increase this to 600 mg 3 times a day. Potential side effects of the medication were discussed. How to start it was discussed. OARRS was reviewed. At this time, she is going (more content not included)... [facility] Comment on above: Result Comment: Elec tronically Signed By: Louise Owusu PA-C\.br\Date and Time Signed: 04/02/23 10:20 EDT\.br\Electronically Co-Signed By: Garrett Dennison MD\.br\Date and Time Co-Signed: 04/03/23 17:12 EDT Office/Clinic Note-Physician on 04-02-2023 Office/Clinic Note-Physician [id number]#1.00CD:127 [facility] Patient Correspondenceon Patient Correspondence [id number]#1.00CD:127 [facility] Patient Correspondence [id number]#1.00CD:127 [facility] Patient History Officeon Patient History Office [id number]#1.00CD:127 [facility] Consultation Noteon 03-05-20 Consultation Note [id number]#1.00CD:127 [facility] Consent for Treatmenton Consent for Treatment [id number]#1.00CD:127 [facility] Consultation Noteon 02-20-20 Consultation Note Patient: OMEGA REYES Age: 67 years Sex: Female : 1955 Associated Diagnoses: None Author: Louise Owusu PA-C Subjective Chief complaint 02/19/2023 10:44 EDT left side low back pain . Patient is a 67-year-old female. She presents today for follow-up after undergoing a left-sided sacroiliac joint injection. This was done on 01/20/2023 and gave her 100% relief for 2 weeks followed by a continued 50% relief. She states that from when she for started coming to now things are at least 50% better. Unfortunate, she still intermittently has some left-sided buttock pain that is a stabbing type discomfort that comes and goes at this time. She states that it ranges from a 2 to a 5/10 depending on her activities. With certain maneuvers in certain activities it does get a little bit intense but once again she states that it is significantly improved from before. She has a history of spinal fusion done by Dr. Yates. She states that before the surgery she was on gabapentin. She is no longer using this. She did not have any side effects with that she just states that after the surgery it was discontinued. Health Status Allergies: Allergic Reactions (Selected) Severity Not Documented Amoxicillin- Edema of face., Allergies (1) Active Reaction amoxicillin Edema of face Current medications: (Selected) Prescriptions Prescribed cyclobenzaprine 10 mg Tab: 10 mg = 1 tab(s), Oral, TID, PRN for spasm, # 30 tab(s), Refills(s) 0, Pharmacy: [facility]/pharmacy #[id number], 160, cm, 01/22/23 10:29:00 EDT, Height/Length Dosing, 98.8, kg, 01/22/23 10:29:00 EDT, Weight Dosing pregabalin 50 mg Cap: 50 mg = 1 cap(s), Oral, Bedtime, X 30 day(s), # 30 cap(s), Refills(s) 1, Pharmacy: [facility]/pharmacy #[id number], 160, cm, 02/19/23 10:50:00 EDT, Height/Length Dosing, 95.7, kg, 02/19/23 10:50:00 EDT, Weight Dosing Documented Medications Documented Lopressor 25 mg oral tablet: TAKE 1/2 TABLET BY MOUTH TWICE DAILY Tylenol 325 mg oral capsule: 650 mg = 2 cap(s), Oral, q4hr, PRN as needed for pain, Refills(s) 0 aspirin 81 mg Oral EC Tab: 81 mg = 1 tab(s), Oral, Daily, Refills(s) 0 calcium (as carbonate) 600 mg oral tablet: 1,200 mg = 2 tab(s), Oral, Daily, Refills(s) 0 celecoxib 200 mg Cap: 200 mg = 1 cap(s), Oral, BID, Refills(s) 0 cranberry: See Instructions, Refill(s) 0, 500 mg daily docusate: See Instructions, twice daily, Refills(s) 0 estradiol: See Instructions, once weekly, Refills(s) 0 loratadine: 10 mg, Oral, Daily, Refills(s) 0 magnesium oxide 400 mg Tab: See Instructions, once daily, Refills(s) 0 melatonin: See Instructions, nightly, Refills(s) 0 potassium chloride 99 mg oral tablet: 99 mg = 1 tab(s), Oral, Daily, # 100 tab(s), Refills(s) 0 Problem list: All Problems HTN (hypertension) / SNOMED CT 7086619031 / Confirmed H/O gastroesophageal reflux (GERD) / SNOMED CT 8792144610 / Confirmed H/O: osteoarthritis / SNOMED CT 849170284 / Confirmed Lower back pain / SNOMED CT 989337749 / Confirmed Rib pain on left side / SNOMED CT 204131220 / Confirmed Muscle spasm / SNOMED CT 47123374 / Confirmed Objective Vital Signs 02/19/2023 10:44 EDT Peripheral Pulse Rate 49 bpm LOW Respiratory Rate 16 br/min Systolic Blood Pressure 169 mmHg HI Diastolic Blood Pressure 87 mmHg Mean Arterial Pressure, Cuff 114 mmHg General: Alert and oriented, No acute distress. Eye: Normal conjunctiva. HENT: Normocephalic, Normal hearing. Cardiovascular: No edema. Musculoskeletal Normal range of motion. Normal strength. 5/5 lower extremity strength Integumentary: Warm, Dry, [place]. Injection site well-healed Neurologic: Alert, Oriented. Psychiatric: Cooperative, Appropriate mood & affect. Impression and Plan Patient is a 67-year-old female with a past medical history significant for sacroiliitis and lumbosacral spondylosis. Recent left-sided sacroiliac joint injection gave her 100% relief for 2 weeks followed by 50% continued relief. At this time, she states that things are better. She still has certain maneuvers that can cause the pain to increase but she states that overall she is doing better. She is more comfortable. She is happier. At this time she states that things are improved. We discussed trialing low-dose Lyrica to see if we can get a little bit better control of her pain. OARRS was reviewed. Potential side effects of the medication were discussed. At this time, she is going to start at 50 mg nightly. Follow-up in 1 month. Call the clinic sooner if necessary. ANN score: 24% Normal [facility] Comment on above: Result Comment: Elec tronically Signed By: Louise Owusu PA-C\.br\Date and Time Signed: 02/19/23 11:01 EDT\.br\Electronically Co-Signed By: Garrett Dennison MD\.br\Date and Time Co-Signed: 02/24/23 21:15 EDT Office/Clinic Note-Physician on 02-19-2023 Office/Clinic Note-Physician [id number]#1.00CD:127 [facility] Patient Correspondenceon Patient Correspondence [id number]#1.00CD:127 Normal [facility] Patient Correspondence [id number]#1.00CD:127 [facility] Patient Correspondence [id number]#1.00CD:127 [facility] Patient History Officeon Patient History Office [id number]#1.00CD:127 [facility] Immunization Recordson 02-15 Immunization Records [id number]#1.00CD:127 Normal [facility] RAD - MISCon 01-27-2023 RAD MIS [id number]#1.00CD:127 Normal [facility] RAD - MISCon 01-26-2023 RAD MIS [id number]#1.00CD:127 Normal [facility] Consent for Procedure/Surger yon 01-22-2023 Consent for Procedure/Surgery [id number]#1.00CD:127 Normal [facility] Discharge Instructionson Discharge Instructions [id number]#1.00CD:127 Normal [facility] Family Medicine Office/Clini c Noteon 01-22-2023 Family Medicine Office/Clinic Note Chief Complaint pt here to establish care HPI Staff Lilo is at 67 year old female presenting to Establish care Establish Care: History: Any previous diagnosis: HTN, osteoarthritis History of seeing any specialist: pain management injections to lower back When was your last doctors visit: Last provider: Dr Solares Any recent labs: Health Maintenance UTD: Mammogram: May 2022 Pelvic/Pap: [address] Khanna normal Acute: Current issues/complaints: Pain left side started in november pt states pain has improved since she was seen by Dr Solares for this. Was given Muscle relaxer. History of Present Illness pt presents today with left upper abdomen pain near her ribs. Dr. Solares treated her with muscle relaxers. it is improved. but still comes and goes. she was not able to sleep on her side last night due to the pain Review of Systems PHQ Score Initial Depression Screen Score: 0 ROS - Provider Constitutional: no fever, no chills, no sweats, no fatigue Respiratory: no shortness of breath, no cough, no orthopnea, no wheezing. Cardiovascular: no chest pain, no palpitations, no edema. Neurologic: no headache, no dizziness, no numbness, no weakness. Physical Exam Vitals & Measurements HR: 62(Peripheral) BP: 118/80 SpO2: 96% HT: 63 in HT: 160 cm WT: 98.8 kg WT: 217.36 lb BMI: 38.59 General: alert, no acute distress ENMT: oral mucosa moist, no pharyngeal erythema or exudate Cardiovascular: regular rate and rhythm, normal peripheral perfusion Respiratory: Lungs CTA, respirations non labored Extremities: no deformity, no trauma Neurological: oriented x 4, LOC appropriate for age, CN II-XII intact, motor strength equal & normal bilaterally, speech normal Assessment/Plan 1. Rib pain on left side (R07.81: Pleurodynia) pt was seen in November for left sided rib pain. she was treated for a strained muscle. the pain has come and gone. last night she strained it again and couldn't even sleep on that side due to the pain. will order xray. medrol dose pack also ordered and refill of muscle relaxers were sent. all questions answered. RTC as needed Ordered: methylPREDNISolone, = 1 packet(s), Oral, As Directed, as directed on package labeling, X 6 day(s), # 21 tab(s), Refills(s) 0, Pharmacy: [facility]/pharmacy #[id number], 160, cm, 01/22/23 10:29:00 EDT, Height/Length Dosing, 98.8, kg, 01/22/23 10:29:00 EDT, Weight Dosing 2. Muscle spasm (M62.838: Other muscle spasm) muscle relaxers sent to pharmacy 3. BMI 38.0-38.9,adult (Z68.38: Body mass index [BMI] 38.0-38.9, adult) BMI education complete Ordered: methylPREDNISolone, = 1 packet(s), Oral, As Directed, as directed on package labeling, X 6 day(s), # 21 tab(s), Refills(s) 0, Pharmacy: [facility]/pharmacy #[id number], 160, cm, 01/22/23 10:29:00 EDT, Height/Length Dosing, 98.8, kg, 01/22/23 10:29:00 EDT, Weight Dosing 4. Non-smoker (Z78.9: Other specified health status) continue not smoking Ordered: methylPREDNISolone, = 1 packet(s), Oral, As Directed, as directed on package labeling, X 6 day(s), # 21 tab(s), Refills(s) 0, [id number], cm, 01/22/23 10:29:00 EDT, Height/Length Dosing, 98.8, kg, 01/22/23 10:29:00 EDT, Weight Dosing Orders: cyclobenzaprine, 10 mg = 1 tab(s), Oral, TID, PRN for spasm, # 30 tab(s), Refills(s) 0, [id number] 160, cm, 01/22/23 10:29:00 EDT, Height/Length Dosing, 98.8, kg, 01/22/23 10:29:00 EDT, Weight Dosing Follow-up No qualifying data available Problem List/Past Medical History Ongoing H/O gastroesophageal reflux (GERD) H/O: osteoarthritis HTN (hypertension) Lower back pain Muscle spasm Rib pain on left side Historical No qualifying data Procedure/Surgical History Injection of facet joint using fluoroscopic guidance (11/18/2022), History of left knee replacement (2021), Cataract surgery (2020), History of spinal fusion (2020), History of carpal tunnel decompression (2018), History of urinary bladder surgery (2011), Abdominal hysterectomy (1998), Arthroscopy of knee (1998), History of repair of rotator cuff (1986), Stripping of vein (1985), Appendectomy (1983), Cholecystectomy (1983), History of tonsillectomy (1957). Medications aspirin 81 mg Oral EC Tab, 81 mg= 1 tab(s), Oral, Daily calcium (as carbonate) 600 mg oral tablet, 1200 mg= 2 tab(s), Oral, Daily celecoxib 200 mg Cap, 200 mg= 1 cap(s), Oral, BID cranberry, See Instructions cyclobenzaprine 10 mg Tab, 10 mg= 1 tab(s), Oral, TID, PRN docusate, See Instructions estradiol, See Instructions Lopressor 25 mg oral tablet loratadine, 10 mg, Oral, Daily magnesium oxide 400 mg Tab, See Instructions Medrol 4 mg Tab, 1 packet(s), Oral, As Directed melatonin, See Instructions potassium chloride 99 mg oral tablet, 99 mg= 1 tab(s), Oral, Daily Tylenol 325 mg oral capsule, 650 mg= 2 cap(s), Oral, q4hr, PRN Allergies amoxicillin (Edema of face) Social History Alcohol - No Risk, 11/05/2022 Current, 1-2 times per wee (more content not included)... Normal [facility] Comment on above: Result Comment: Elec tronically Signed By: Jaci Tee\.br\Date and Time Signed: 01/22/23 13:36 EDT Physician Orderon 01-22-2023 Physician Order [id number]#1.00CD:127 [facility] Discharge Instructionson Discharge Instructions [id number]#1.00CD:127 [facility] IntraOperative Documentson 0 01-20-2023 IntraOperative Documents [id number]#1.00CD:127 [facility] Main OR Intraoperative Recor don 01-20-2023 Main OR Intraoperative Record IntraOp Document Type FTPM Summary Primary Physician: Garrett Dennison MD Finalized Date/Time: 01/20/23 12:01:12 Pt. Name: LILO REYES/Sex: 1955 Female Med Rec #: [id number] Physician: Garrett Dennison MD Financial #: [id number] Pt. Type: P Room/Bed: / Admit/Disch: 01/20/23 10:45:42 - Institution: Case Times FTPM Entry 1 Patient Times In Room 01/20/23 11:53:00 Out Room 01/20/23 11:58:00 Procedure Times Start 01/20/23 11:56:00 Stop 01/20/23 11:57:00 Anesthesia Times Last Modified By: Angela Hu RN 01/20/23 11:58:13 Case Attendance FTPM Entry 1 Entry 2 Entry 3 Case Attendee Juma DUBON, Garrett Oreilly RN, Angela Espino RN Role Performed Surgeon - Primary Scrub - Primary Compound Machine Operator - Primary Time In 01/20/23 11:53:00 01/20/23 11:53:00 01/20/23 11:53:00 Time Out 01/20/23 11:58:00 01/20/23 11:58:00 01/20/23 11:58:00 Procedure SACROILIAC JOINT SACROILIAC JOINT SACROILIAC JOINT INJECTION(Left) INJECTION(Left) INJECTION(Left) Comments Last Modified By: Angela Hu RN 01/20/23 Angela Hu RN 01/20/23 Angela Hu RN 01/20/23 11:58:14 11:58:14 11:58:14 Entry 4 Case Attendee Tab Sheffield Role Performed Chalk Tester Time In 01/20/23 11:53:00 Time Out 01/20/23 11:58:00 Procedure SACROILIAC JOINT INJECTION(Left) Comments Last Modified By: Angela Hu RN 01/20/23 11:58:14 Perioperative Protocols FTPM Pre-Care Text: Implements protective measures prior to operative or invasive procedure, confirms identity before the operative or invasive procedure, verifies operative procedure, surgical site, and laterality Entry 1 Procedure(s) SACROILIAC JOINT Patient Identity Birthday, ID Band INJECTION(Left) Verified (select at Check, Patient least 2): Participation Consents / H and P HandP, Surgery/Procedure Operative Site Present Verified Consent Marking Verified Surgical Site Yes Laterality Verified Yes Verified Procedure Verified Yes Correct Patient Yes Position Verified Availability Equipment, Medication, Prep Dry Yes Verified (If X-ray Applicable) PreOp Antibiotic No Time Out Angela Hu RN, Myers Given Participants RN, Juma Black MD, Zachary, Hargrove, Bryce Time Out Complete 01/20/23 11:55:00 Outcomes Met? Yes Last Modified By: Angela Hu RN 01/20/23 11:55:02 Post-Care Text: The patient is free from signs and symptoms of injury caused by extraneous objects Allergy Information FTPM Pre-Care Text: Verifies allergies Entry 1 Allergies Reviewed? Yes Allergies Reviewed Self/Patient With Outcomes Met? Yes Last Modified By: Angela Hu RN 01/20/23 11:20:38 Post-Care Text: The patient received appropriate medication(s) safely administered during the perioperative period Surgical Procedures FTPM Entry 1 Procedure Description Procedure SACROILIAC JOINT Modifiers Left INJECTION Surgeon Description SIJI Primary Procedure Yes Primary Surgeon Garrett Dennison MD 01/20/23 11:56:00 Stop 01/20/23 11:57:00 Anesthesia Type None Surgical Service Pain Management Wound Class 1 - Clean Last Modified By: Angela Hu RN 01/20/23 11:58:15 General Case Data FTPM Pre-Care Text: Classifies surgical wound, implements aseptic technique, initiates traffic control Entry 1 Case Information OR Pain Proc Room Case Level Level 2 Wound Class 1 - Clean Specialty Pain Management Preop Diagnosis M46.1 Postop Same As Preop Yes Postop Diagnosis M46.1 Outcomes Met? Yes Last Modified By: Angela Hu RN 01/20/23 11:20:54 Post-Care Text: The patient is free from signs and symptoms of infection Skin Assessment (Pre Procedure) FTPM Pre-Care Text: Implements protective measures to prevent skin/ tissue injury due to thermal or mechanical sources Evaluates for signs and symptoms of physical injury to skin and tissue Entry 1 Skin Integrity Intact, [place], Warm, and Skin Abnormality No Dry Outcomes Met? Yes Last Modified By: Angela Hu RN 01/20/23 11:21:06 Post-Care Text: The patient is free from signs and symptoms of injury caused by extraneous objects Patient Positioning FTPM Pre-Care Text: Identifies physical alterations that require additional precautions for procedure-specific positioning, verifies presence of prosthetics or corrective devices, positions the patient, evaluates the patient for signs and symptoms of injury as a result of positioning Entry 1 Procedure SACROILIAC JOINT Body Position Prone INJECTION(Left) Feet Uncrossed? Yes Left Arm Position Resting at Side Right Arm Position Resting at Side Left Leg Position Extended Right Leg Position Extended Positioning Device Pillow Under Head Large, Safety Strap, Pillow Large Under Knees Press Points Checked Yes By Angela Hu RN Outcomes Met? Yes Last Modified By: Angela Hu RN 01/20/23 11:21:16 Post-Care Text: The patient is free from signs and symptoms of injury related to positioning Transport To OR F (more content not included)... Normal [facility] Main OR Preoperative Recordo n 01-20-2023 Main OR Preoperative Record Holding Area Document Type FTPM Summary Primary Physician: Garrett Dennison MD Finalized Date/Time: 01/20/23 11:06:21 Pt. Name: LILO REYES Adan Norris/Sex: 1955 Female Med Rec #: [id number] Physician: Garrett Dennison MD Financial #: [id number] Pt. Type: P Room/Bed: / Admit/Disch: 01/20/23 10:45:42 - Institution: Case Times Holding FTPM Pre-Care Text: Verifies consent for planned procedure, identifies individual values and wishes concerning care, includes family members in perioperative teaching Secures patient's records' belongings, and valuables, maintains patient's dignity and privacy, and maintains patient confidentiality Entry 1 In Holding 01/20/23 11:04:00 Outcomes Met? Yes Last Modified By: Altagracia Yan RN 01/20/23 11:04:41 Post-Care Text: The patient participates in decisions affecting his or her perioperative plan of care The patient's right to privacy is maintained Surgery Checklist FTPM Entry 1 Patient Birthday, ID Band Procedure History and Physical, Identification: Check, Patient Verification: Surgical Consent, With Participation Patient NPO after Midnight: No Date/Time: 01/20/23 11:04:00 Results Reviewed 0830-Coffee and pear Personal Items: Cataract Lens Implant Comments: Complaints of Pain: Yes Pain Comment: 5/10 Left lower back Operative Site Yes Marked By: Dr Dennison Marking: Location: Left SIJI Availability Equipment, X-Ray Verified: Does Patient Smoke No Patient states Yes Comment - Adult - Bill postop adult Supervision supervision available Case Cancelled in No Holding Area see comments below for reason Last Modified By: Altagracia Yan RN 01/20/23 11:06:17 Finalized By: Altagracia Yan RN Document Signatures Signed By: Altagracia Yan RN 01/20/23 11:06 Normal [facility] Patient Correspondenceon Patient Correspondence [id number]#[id number]:127 Normal [facility] Coding Summary.on 12-18-2022 Coding Summary. CD:[id number] Ww+PGhlYWQ+ LT3IPHZaQ46adUQjtU2xV2GUZMdBOcn xOEPTKSuPTxEuwkAuHQ0knJMaYQLg IC8+SE6mGOLoAyjysICzx0Z4xRS9V06 lhn4eTKkfsKK1XAWfIwSldbjvt2aqxY j0AMvsKxzdSjHe RSWprN75RTR2kE64Ur52yMUnwEPww3s dlFi3DmEjYXHwUVA5yUxtEDizt8AsZM XdX24xtZHbb2V0 BKDfkYcyxHLfYqBrmMU6kI2nMDkitxk zo7ghwocjJwj4ea07sQTye7C6yXF3O8 NuaoE7MTUslAZq AemncLHWzY6iscbwa1jerwvsBtQmXCZ kIGq9XWf4ZSYbtAzwNpRbWV35CLB7TW LbphHbW2IbOFRy iTjfVuF6q4U3Lv8MD6MMTeetQ0TENRD SWTwvdGQ+KP70po52F5IiQzxaJao6LZ ArGLY0eIS8sD2y VPQrBKlun2W1kUC4H5GzubUadf3dg8r qRSAsVLmyE96uxVOdu6A1ZYCwqGF3JY DcpStoZdAgvB91 Oyc+HNGtvJcfq5WgAhkvh3hpx1bxrEr 2VelhFWEuasYlpAsyGPP9o7DuAn2wMI BlsPU8mTR0qT3a UcVqMzW2BWsgW316ImIhfDOcFwjlJ75 mO8OdyQC+WMHaIyx0FOKaeNaiAV9uU9 BhZGRpbmctbGVm oOjzOB1gGOLjwuqdMMHkwK0xGNYnW9x 6ZxGpOgE2XLddN0KkARWjazuyEk37rH 4sVvHjUyY4UKea F2LsveT8WQRtpQZiFBicPII1J05mk5B 8XEHjHLRfQBO8mGH4eP7dwLaskbztbM VmdDsgdmVydGlj ESftJDfcF941JOIamDuxFsEuFOswAqE EYXRlOiAgMDUvMDUvMjAyMzwvdGQ+PH PxQXI3gHayUWJb dDLbQWobCn6siOahuFsfUR6nQRXlkqc hAWNddF0kGZMtdDAqhMquVT0lCPRniv zso690OyQhPFY6 EVQpeZMgK8FjqO9pAxLpNJUjOSNcC4J zdDOiLJqgM220ZXkfUdM4UCSysrXvY1 FsLWFsaWduOiB0 r7J7Jc0Sk3NrkvjbV2YuiTHbTeJxTrh qGEa3V6BpVnljtCW+MF62ENMzRV27ZB h5FAJ7qIarZMlt TTUtJ7MmbE7bEbPdJYAkWMQxWab+PHR hYmxlIHdpZHRoPScxMDAlJyBzdHlsZT 0lHd3uWUWeSABa kAigoMXoApCta8zrFXEjRNzlQL5eaHb bJ2KvbVL2THCqd5m1Tb65D05gO1ZsrI A+AHOgsMT4xJF9 mM0lCuCzAoF9QOfrQ782IzZouDDbGki hg9zoj1fpzXd3EfY7MEDriaZtxDcuGV D5n5JwGi97K38e ZFbeLZCwALJiAYKsYEJqhIlccl1hhE7 wIi8+XFIbbKJ9nBK2pO1mQyEiDcG0YC exS814DpMduSFb Islhy9alt4efzOm3YuGrVTHtvwRrnHu hXAP4c7GlWt14R1JzhRvtd5EuQbr9ya 49aSLvy8C6rMW8 P1KcWPCzuajahDUbiPbrDA6nFELxrxc pDRJcpA5uZWGtZ4c6XaNjJfL5KTqqN1 JlrwB6WDFmdSUp WXZwrTPPcU1cnwvxl8zyeqbuPbOzYZO lYAb0VTa1IERzhCutFcXxNLH1RbA9AK O6bGFpsY7fiFwa symzmD7yCrx+WSK2kVMolWLINW9tVlu vdGQ+OTKoNNF4zTriLHkjDLXoaJ1yXH FhD5s1TkHpStV3 ETjnM0KrlaE4QNVizWRaUVVzbPLRlR3 xxeohb8anembwNtQiAQJpASj4AWb0OS FsaWduOiBsZWZ0 YwB5CQW2kNGdcC9qmOrwsckjfV9sZox +EtmtxIzqSWC4FLu2I6MiLdj6XGCntB jeRR9ghNSgMMiw Ga0kdBwlaMgwGN7tVMDcafdvj423QcS rl0mrPQSiyFLoCYodXEK4R67lt9S7IP EuQMVfTRC9yGN4 nR6qxMzqmpuhwGWvqLosylDlgJsgQYf zUXnpK237RVTslAaxJrGzROa6Y5ItJo z1BJIgrRqeYQ2f rOCfJZhuDy3juZdlvXxtRM7iKUNdusn wi605DkLcu6pgSUUhmKAoVZocENM7W3 7gb9L4RHHlAWOi MXC4fHX0gG8mqVpiylusvLIokZcabnY thBzvNXfpHEibQ815WGZeaTydGbXtkY n0U3SyNlt4BIXu jDpvPD9lrGCiPXklOj9biHklsWumDD8 uIDXnqlcrh923XlKpl2roCHQhqXLnDF usTFK9E93ui9G5 HCEbIDTvODT7mFB9kW7wxDncbfwafMJ nbHapyhZqeIafCOgqUTenE501KJPghM snPlBhdGllbnQg AZfdMKc8V6StNawbbOZ+RD09NHWvIY9 2lWHwnNBjs1hmnLn9TtJgXNSgHQL4hP sbGUeac6FqQAEt M53diWZrw4N1FSUiySsqjECmZpMzqDT 5lQ2lZGkdouzvq1dqfkhzHdigl7inza 93uB29Z27cCNzr OKSlSYTvFNPgBMCjsDlban1dsA5kBm3 +KOAjlEH7wHO6tP6nHOZmWmI8FCzvZ9 49InRvcCIvPjxj a3xgu0srhLa8EzQ8JGTzatTciRydNUA 8d7TkLq05K50hIErbZQYwYFRxYJWzQQ YztIjowu0wlN7b Ii8+THRyjBA3hUK8jP6tJvPgUeG7KEl nL870AfWapLLcItydL36nN2GglZE+PH FdNba5VOQrwZra IN5slIHwAVwfGh8oGEI4AcXdGxBhOFb zE7GxUZQukhfsrijpzYJ6SKHoKDTjyA 19De9edDveJNDw jFUKtE1tizkkh3mmmbscOjAbWXQcDBo 1SHu4JRIhaQxzDnIhVWZ9VdM4FGC8gF VwjE3bbCrsibsg bK3pO7JmMIWvpnpgMg35bB6iPqDbRoK 1MGluOyc+CTcJHIPWIWYIPK6WAB75S4 FfPty7OFWiaGvo NZ4fxMYpVHsoWe2zrFwkgHmzJP0rLMN lhsttDSXonQ0hJQIelYHasBcfDS0fIV Kclogtz531NqXw BAP6UVFtpRIzW3NtrJ7bSqPiETOzXNG mC7BakBTyGZxzP834DFutToT2XYZjyp IkC3ZiVZJzdUbq EuK1h0S2Vu3jHK0sLi6yTOZkWO09FU2 1xHDwh1G1bQH6K4RtLJBrybmychwdvH B1HNAqGYNlbL05 fXDhDYpjQn6za8J5s014KJQmRZSctI3 5Uw3pkIdcGMRxlNHTeG5zbxskz1avxj ogIzAwMDAwMDt0 RPe1HMYdcUakHgVvYMK1FpB2UHN5mTB ypX4yhRxrzohpjO2lIud+NjkgWWVhcn V5Y4IrOip1CQDd zOhbUL1upDFnBDkyRr2rwFicqPkzAS3 gSZRoxukrCLQdtU1gWWJfdSStwDncAX 6fZODztfqdb366 ItKsRLL7LEYswUOoZ3XyfK7vNtEdFVL yQWOdW5RtmCYmABcgG929CBhgLvJ5OU WuwkNhN6TcHXSw iCmiUrK0z5T3Jc5IWH0vdMJ1M4UoEqk 7MBMadKgpOM7jfBOlYOkbWk4agTuinL vhDS0yADEpcaru APXesF2vAYMqeRGsxFalYS9fPNRpqxk hu244HgOnKXR0NCPasXYuG7TdpK6uMs ElLYYdOCAwK1Cj qRJwDPofJ699SWqfRgU5IWAhraNhK4B yTRTciUvzMdJ2d2P1By9CQIjdTL7dmy FeSI6dzpV9B5Je PjwvdHI+XT31HERfBH05uVCkjUKqs3p bnUv7AnPfXGFfSVS8iPwjABenv8RvRZ ErZ79mdBYvn6H3 EXGoyTdnxHYvHmOfuCB1rC7oOVfmraf no2fhvowyOmlhr3kvuc91pZ41F90qRS dpZHRoPSIzMCUi DJNshLuzls1waI3pSn8+XRVidOS8qPR 1rX0tFbMbRaO1AUxaP227LzQjcSTfJp xbw0wkf1lrfGv4 NiHmFAXoikLbcGexWIN7d5RpKf53R19 wXAmgBBUwNDCgLXWsGPTdbYzafo5vxI 9wIi8+TB7ch5wm px63xX40hFG+KEZdWGE2oKpbZIwaLMJ obA9qUBxxSpR2RZJfCeIigO51fJVsVH jqAc7doJsuuHyc FJ7mYZSaujilu719QfCmb0crEKEovLI kLApqHXP5O48lq5G4MGQbUJIaJMA1tF W9oP3bqKesuysa dOTtfSbggsRflZsqIKjzOUtfW456LHK sfYmsOgJbaYJlI7yrxqKIWQ7bXhithF Q+CUWrOYS6fLca JUdhIASrdL0bTPFeY7w5AlFmEhC3PRf dE6HjdwF4DFUghICoWCTurCFWjM3wou dki1mpzeixCsSt QDTtEDk5VAl9BIRkkOjuFsWgUXL5YsY 7QDD3wTDxgH7soJnuvmyzmF2sRxf+Rk lOOjwvdGQ+PHRk JBA2eNdkSTmwSLZcmO1tWLGlT0r2FnO uVuL4LPskQ4PnndI3YBNzhTQuIPDerH LTpB9zzuxgn4hm fupsZlLyUCFaKUl6TUy3SHTblQpeYiB aQPT0YcR1YHB2sORfuZ1ujFavhslagO 9wOyc+TVJOOjwv dGQ+IZKzHPF9oYoeWGfeTPRbtA5pWUE xV9u1AmMlPlW4TOdtF8TnswU0BZVfkJ VcNZImgRTYgU3x bvfvi4zgnuoyCkOvSWJiTKg0NJk2NCS pfSvaSjLkJDX5NdF0LOK9wPNxdE5qaG anzzgzgX9vJub+ VXJ5PBB4FC10FE08J6ClKqjlaDOvvZM +PHRhYmxlIHdpZHRoPScxMDAlJyBzdH ieFK3lTv9rJKFq LWNvbGxh (more content not included)... Normal [facility] Consent for Treatmenton Consent for Treatment [id number]#[id number]:127 Normal [facility] Consultation Noteon 12-18-19 Consultation Note Chief complaint: Lef t-sided low back pain History of present illness: This is a 67-year-old female here for a chief complaint of left-sided lower back pain. The patient rates the pain as a 4 out of 10. At her last visit she underwent a set of left-sided diagnostic medial branch blocks for the L5-S1 facet joint. She reports 50% relief although the relief was not immediate. The pain has not completely gone away but she is doing better. She does not have any radiating pain down the leg. She denies any right-sided pain. She does not have any radiating pain down the leg. She reports that the pain does not go away when she sits but it is worse with standing and walking. At this moment she is able to function normally. She has some focal pain in the left knee but is following with orthopedics for this. She is not requiring any pain medications. She has maintain a home exercise program for her spine which helps. She denies numbness or weakness. The patient denies additional neurologic symptoms or issues with bladder or bowel control. The patient's past medical, surgical, and social history along with medications and allergies were reviewed. Review of systems was done on 10 systems Physical examination: General: Pleasant white female in no acute distress. Patient appears well-nourished. Vital signs stable Head exam: Head is normocephalic and external ears are normal Neck exam: No tenderness Cardiovascular exam: No signs of poor perfusion and no peripheral edema Respiratory exam: Breathing is unlabored and there is no wheezing present Abdomen exam: Abdomen soft and nondistended Back exam: Left-sided sacroiliac/paraspinal tenderness below the level of L5. Positive Jermaine sign, Gaenslen test, and thigh thrust test on the left Musculoskeletal exam: Strength 5 out of 5. Muscle tone is normal. Neurologic exam: Sensation intact. Reflexes diminished but symmetric. Psych exam: Affect is appropriate. Alert and oriented Skin exam: No lesions Assessment: The patient's signs and symptoms are consistent with sacroiliitis and lumbosacral spondylosis. We reviewed the patient's imaging which showed degenerative changes in both the left L5-S1 facet joint but also in the left sacroiliac joint. Given her lack of immediate relief from the medial branch blocks I think the sacroiliac joint is the primary pain generator. Oswestry disability index score was 24% OARRS report was reviewed and was appropriate Plan: I addressed options with her. She is doing relatively well so we can hold off on further interventions for now. I advised her that if the sacral pain were to intensify then we could proceed with a left sacroiliac joint. For now she will continue with her exercise program for her spine. We discussed the potential risks and benefits of this plan and the patient was in agreement to proceed. I will see the patient for follow-up in 3 months or sooner if needed for repeat evaluation. Normal [facility] Comment on above: Result Comment: Elec tronically Signed By: Juma DUBON, Garrett\.br\Date and Time Signed: 12/17/22 17:39 EDT Office/Clinic Note-Physician on 12-17-2022 Office/Clinic Note-Physician [id number]#1.00CD:127 Normal [facility] Patient Correspondenceon Patient Correspondence [id number]#1.00CD:127 [facility] Patient Correspondence [id number]#1.00CD:127 [facility] Patient History Officeon Patient History Office [id number]#1.00CD:127 [facility] Coding Summary.on 11-23-2022 Coding Summary. CD:[id number] Ww+PGhlYWQ+ NJ7PDRMvN90jhUGtoZ3bZ7WSYWdAWur lVWICANaKVbSaweSmPB0jeZQgMIIy IC8+YK5xTXSyGlosbRKmk2G4hEV5N52 bkp1pVQndfHX1AKUbZvRuizovm3xqtP y4XZvpVprqMqSr KEYppS19SLG9gG84Or38sHIzfHNvv1w fsLv0DnBqPYAaQOR7aRgeADugx4YcBA GxG26jfRRpt7W8 DLDstUakvLFnRvCznMI9zB2wQGytsve cu6godaukBps2bj03gIQcy3I0lZC9N6 AtqlC8KLEvlGBw XvxcgCWSiP2mkvtku5fronxuUuPcBJP rAFt4RWv2OISgcBbkXgBoPM79HWP9SA OmadIlV7JmHTJp hZntHsE2m4A1Fr4LO1VQZxczK4TOSOL SWTwvdGQ+QP53kx93Z0BqViaoNfl8QA EeAPJ5xPF5pM5q ZLWjTIuae2L7bMY1E3ZylnPlzh2ko2z wLVVxAFxeJ55cuYEyv7Q6SSXxbKN3PO GjuOkkTuZvdH78 Oyc+JWFteSxxm6YzPrvtb9clf7qzlOj 4VmvlSRMnkfFoaDdxQTD6j6UaSh2tTF XbpCZ8oEM5fH3z ZfFyDoX1WUnvV301UnMcnTCwUtzmS88 lA8JnzOL+CAWgSoj1DTLtpZefDP8dU1 BhZGRpbmctbGVm rYqsNT4kCENboxaiQOXuuY7zNGAoG9p 7WoOmSbP5EQclI5DcXGVsdebqNq92dH 3vWdUlHiO8JRww V2UbhyZ0NXLbzMHiZMaaSRV5R44gr3D 0IBWiAGPvCKC6sLG3qI6kzFjnwljuhN VmdDsgdmVydGlj SQzcFAwpT910TATfsBxzJuEkDUvnRnM EYXRlOiAgMDQvMTAvMjAyMzwvdGQ+PH QzSNG1yGusULFj lZOaYRwwOw3fcDirvNkwUE8yIRJwriv lXNWwmF6lEFFkpHTfyHulHB1sMYTbdf vom603GqIdOLB0 WMNclRKxV4TmvD7dZsZeXXDtMBThC0X atCDmAAnhS363XNmuYqB8FKSuriXxQ5 FsLWFsaWduOiB0 n4U8Ej5Rg2EgyzjwM9PlmFLkNuQsQll oCWy1J1FaWdnbbNX+BU07KUMsOE23HS e5ICY6eGopDLrw RVJoX9RnjY1tTnMdPCQsCMQsScd+PHR hYmxlIHdpZHRoPScxMDAlJyBzdHlsZT 3sMe1kJOMwVPEr uHhsmOXwYzOhf1nkCCQeECpfIL0vaVt yM1VvzIU6UKGna8z0Wi45K31nJ7WafH A+NJVrfZX6wED9 mQ8xAmHkTnP6KWskL395GtJxrTTaLda om8grg5zvmAr3OpF4QAPeplAgyImeUQ U8t7DoIu30T95t ILvmNHVzUGKnAZCpHLTegYgwrs0otO9 wIi8+ZAGrbAP5vWA8hR8jNfXsTeI7YA qgL406OkNvjXRs Adezy9mmh6jvzXq9SlGwGKKnxxQsmGc sQGH0e2SmRv68K7EfcQyrq5GgXbz3qc 38zFQpv1Y8nGA5 N3BeLCZowyksfHGryGuqMR2gHRKhmea uRSQwdX6mJLSuT4m7AzZmIuL4MAbyD3 BcayY0TEArvKYc COHgmKTEiM2flkjyo6xqkivgWtInYAX xPZx9OBs8NFBglRepEbUySKB7UtW5PC E8jAZemK6wzSiz jjnhiA2fTbm+PRV8pXQmnVLBXD3dJgn vdGQ+TDFfSCX6pErbLBpeZEPnuJ6yCP PrT4e1JzTySgP6 BSsjD6McheE9SNSblDZtDHIldKWUzG6 qmtgrz3poahdxAoDkRDUoSPt7XBa6LM FsaWduOiBsZWZ0 DdX2JYU6nVAqoP2isIbbitjviH5rTnw +FuyrmXgyYFI9FUf2V3QpQwn9VYUfaZ otTZ2yfWJeQAqs Yz8dzAdukHvuMX4pUUBbcbhen306ZcS zx1nrWBKtyIRmKTkrJRG5P50uk6H6FJ GhTPZmJIE1qQZ5 rD1bnKvbdrhndLZunRhvzzLwfKfkWTi sZMdsB913EBIjhFrqGyZdBVx8D7DmRf z7YYLtrShrVB3l nYJdVRkuMy4xpQcgyUmfFV7nKLScmnh dg917MkGse2nmPKOskWWjMGpcKID2X7 1rp0B3RJSkUXHw LPY5zUX5aD2kzZkyjdoowXZsmKtyviN kxSsjJZiwMEweR544LFBkrQnlGwVffV s6K6FbAfs0DALj gAofMI5caISzPPbnLc4osYihtJpkKU6 dOQJghcggc965CuXoy4nwVOPpqTDsOF fjFUS9Y52wu3Q1 LJUoTGOdUZS1dLN2jU7euDmwvgltbSL myPzvfsZrnSpeNTffANbgZ331PMUufO snPlBhdGllbnQg TZvrROf6E4BdAuyhyVL+HX22GJXvNS5 4hLIpqCAbp6izvQe8PiBxQURaHNQ9nV owPHbxj8XtCALg V61rlAJtm2T9NNEjrNvbvQGpQpBelMU 0nZ5pVOzeowlzt1rlmgqfStcmq1nphs 09xR77Z72eAWcr MTDaXJPxZVCnGBPmyGnwpj3tiE8lUd4 +NUTtoMW3dXN3xJ0gIWHuOeD2ADndU7 49InRvcCIvPjxj c6bdx2hxzBj8XjJ6UIVzkeJmdHdlUZE 4d6YiAq03H20vXOstWZZwJQBmNHHeAO DwlIkjzj4dnZ4b Ii8+PVGevXG2zRN8bJ3zCuQhMgC8AAm vM867QrTnlTUqTmqbR96bH3NhpAR+PH TsWcj4XNIjhEsw BL2shWLkWZcvFs3gLOB3ThSoYvKvROq rO7JbBOSylajkxirwrJO5WVDeFOCpjD 27Wd4beCblHMEv zQXRsJ5cedxww1lnesdzWnQlEDFdFIo 7KBd5ACCghXzgKqQaNMY1JsV6CXF4sR KswF0evQbfcseg qV1cM9MyZEZskxvtMm14tH3mOrGrTbA 1MGluOyc+SBtCLKHBZBKJKI5NCF07X9 DsFnv6QEIgaIia IL5oqDOeLUleDj4brXfawYhmGZ6gMPE ulmnyPYAbyM5cISRorOYgfZcaRH8hJA Sjstyjf522SjIv UHK7TZZtuTHsU3GzoN4aBjDkEMGtEFL vS7RnrLMtFQdqZ709DZvhOcK9HFSuxp HwC3VzLWTnpAoy JpM2c2G2Du5jUO6fMs2uLRJrLH73DM3 4dVNrw1W8cHJ1L8KgSQOtijaubzqrbU D2KJOkNQOblT03 aXMnEDgoLy0yv8F0k586VNZkDUZiwY5 8Oz2yfBdbVTMmbIIVtA0qupqrl2vfmb ogIzAwMDAwMDt0 TJx5CMHodAyvMkIzTDJ3QjG9RZV8mRD znR6zcAipxsvpcF2fIai+NjkgWWVhcn I3M3GwNab5WYWp nGmiNA2baZIkDOuzCn9tbIwjeZytAT0 hNSJlikrpPDPwjV3hULHvfODtzNkvAU 8hGPTrklkxk182 KwLpPRA6KOBfvEQhG7AchZ9lDlUxRRY vIDNnB2IulITjKPuyP707TKslCcI1CG AqwgArG4CfBQIw mSwcNwC0f6Y0Cq8VDH3duMT6A4BzOgm 5AMMmeVhlLY9qfXJbCGwlRc8cdQdzcY dcYW7oCJFnkyic WNYyzN3eDOQxxOSdtLbiUS8iDBGkvow na308ThXgSVD2MPVrqWSpM4OovE0oOz GmNRHlDODjG9Lx yNUbVKesG178OUnrZiL6YLPlndAvT1M nGJRpkIfxQbR7y1S9Yk0AIPgxZD8zen DeNX7mqbN9B9Jt PjwvdHI+OL16IXWuBI01fTMdzXYmd7z euMn3VfErIMYaNCL8fMixOPoly9DaDG QnH08xpXIdk4L7 LKQaxLlrdNViBkUrkPR0lW4lQVnhmtk hl4ckpfvoVzakw3bgvx31oA49I73aMG dpZHRoPSIzMCUi ZPFioSpgkt8igT0dBm5+VYLtcRM4zPQ 7eG6eFuOrMdG1KHbeV401LkIkhNBlCk mnh6mlw7kguYx4 QzQlKLJtltYquPybEPR7u8LjJb45Z39 xJKflUQQtCZPcZYKkZHVbwQsyvv8fsX 9wIi8+CM4al8tn cv18mE23aKO+SLYxNBY0rZsoTZknMUD kyZ9aREgbIvJ3XDAiYmXwjS53bUUlSA twBh0klKnmtUyw RB7wAJOmjdtsq884SwPdt1rkULBtcIF lWNjnWRJ0I69qs1B8ZOEdSAOgXNT7iN M0uZ2dfCcwgxhj sMRtpAndwrBrcHuxRCbgWUuzM368APL lpLklReXeaESlT2rjudSSLQ1hGrykdQ Q+PXKgRXA6yTfo CImmOJXezU9aTMJiX7m8RpTaSbE5KRz wG2EiddS9LYGgiVJwJWCoaEVLnH8djc gft3ssezcyYyPt ELWbVOn5IPn7YZVkjYflSwAeUXT4StD 1PHP1tLDooZ0niBujjgdekE2dHwx+Rk lOOjwvdGQ+PHRk YSP3qSrfCKypGWPpxZ1fNBJmW4w5WxP lZvU9GVuoG1AiqzO5OZIvkYQcYFHgrP SSiZ6teynzo8nb avftFhTyWRKdFGt2QCe2DJXuyLcxXsW pOUB8JbD0CTN0eYZrsA1gaAcrmzowqB 9wOyc+TVJOOjwv dGQ+WKUkEJS1xQkmJMsnDEAtlE1qDNS jC2n0DnWhNaN9ANypC2SfipZ0QFWrcU RvRJQugRNLzQ4w soeob7huuuohEbEfIPQaLAp3VUg8RYY vcKijSgQlZCH0AmL1UFW3hCNceK3kxJ xbwwezeM6mWma+ EYS2AFH8DR61BY75O6TpAbfcpHZpiBP +PHRhYmxlIHdpZHRoPScxMDAlJyBzdH bhGM1sJi0vBYZo LWNvbGxh (more content not included)... [facility] Consent for Procedure/Surger yon 11-18-2022 Consent for Procedure/Surgery [id number]#1.00CD:127 [facility] Consent for Treatmenton Consent for Treatment [id number]#1.00CD:127 [facility] Discharge Instructionson Discharge Instructions [id number]:127 [facility] IntraOperative Documentson 0 11-18-2022 IntraOperative Documents [id number]#1.00CD:127 [facility] IntraOperative Documents [id number]#1.00CD:127 [facility] Main OR Intraoperative Recor don 11-18-2022 Main OR Intraoperative Record IntraOp Document Type FTPM Summary Primary Physician: Garrett Dennison MD Finalized Date/Time: 11/18/22 13:17:02 Pt. Name: LILO REYES/Sex: 1955 Female Med Rec #: [id number] Physician: Garrett Dennison MD Financial #: [id number] Pt. Type: P Room/Bed: / Admit/Disch: 11/18/22 12:06:15 - Institution: Case Times FTPM Entry 1 Patient Times In Room 11/18/22 13:08:00 Out Room 11/18/22 13:16:00 Procedure Times Start 11/18/22 13:11:00 Stop 11/18/22 13:15:00 Anesthesia Times Last Modified By: YuriyAltagracia moise RN 11/18/22 13:15:23 Case Attendance FTPM Entry 1 Entry 2 Entry 3 Case Attendee Juma DUBON, Garrett Yan RN, Clarisa Appiah RN Role Performed Surgeon - Primary Compound Machine Operator - Primary Scrub - Primary Time In 11/18/22 13:08:00 11/18/22 13:08:00 11/18/22 13:08:00 Time Out 11/18/22 13:16:00 11/18/22 13:16:00 11/18/22 13:16:00 Procedure MEDIAL BRANCH MEDIAL BRANCH MEDIAL BRANCH BLOCK(Left) BLOCK(Left) BLOCK(Left) Comments Last Modified By: Yuriy DURAN, Altagracia Benites RN, RN, Madison A 11/18/22 13:15:24 11/18/22 13:15:24 11/18/22 13:15:24 Entry 4 Case Attendee Tab Sheffield Role Performed Chalk Tester Time In 11/18/22 13:08:00 Time Out 11/18/22 13:16:00 Procedure MEDIAL BRANCH BLOCK(Left) Comments Last Modified By: Altagracia Yan RN 11/18/22 13:15:24 Perioperative Protocols FTPM Pre-Care Text: Implements protective measures prior to operative or invasive procedure, confirms identity before the operative or invasive procedure, verifies operative procedure, surgical site, and laterality Entry 1 Procedure(s) MEDIAL BRANCH Patient Identity Birthday, ID Band BLOCK(Left) Verified (select at Check, Patient least 2): Participation Consents / H and P HandP, Surgery/Procedure Operative Site Present Verified Consent Marking Verified Surgical Site Yes Laterality Verified Yes Verified Procedure Verified Yes Correct Patient Yes Position Verified Availability Equipment, Medication, Prep Dry Yes Verified (If X-ray Applicable) PreOp Antibiotic No Time Out Altagracia Yan RN, Smith RN, Juma Mckenna MD, Yohannes Tucker Bryce Time Out Complete 11/18/22 13:09:00 Outcomes Met? Yes Last Modified By: Altagracia Yan RN 11/18/22 13:09:08 Post-Care Text: The patient is free from signs and symptoms of injury caused by extraneous objects Allergy Information FTPM Pre-Care Text: Verifies allergies Entry 1 Allergies Reviewed? Yes Allergies Reviewed Self/Patient With Outcomes Met? Yes Last Modified By: Altagracia Yan RN 11/18/22 13:07:00 Post-Care Text: The patient received appropriate medication(s) safely administered during the perioperative period Surgical Procedures FTPM Entry 1 Procedure Description Procedure MEDIAL BRANCH BLOCK Modifiers Left Surgeon Description L5-S1 FACET MBB Primary Procedure Yes Primary Surgeon Garrett Dennison MD Start 11/18/22 13:11:00 Stop 11/18/22 13:15:00 Anesthesia Type None Surgical Service Pain Management Wound Class 1 - Clean Last Modified By: Altagracia Yan RN 11/18/22 13:15:25 General Case Data FTPM Pre-Care Text: Classifies surgical wound, implements aseptic technique, initiates traffic control Entry 1 Case Information OR Pain Proc Room Case Level Level 2 Wound Class 1 - Clean Specialty Pain Management Preop Diagnosis M46.1 Postop Same As Preop Yes Postop Diagnosis M46.1 Outcomes Met? Yes Last Modified By: Altagracia Yan RN 11/18/22 13:09:18 Post-Care Text: The patient is free from signs and symptoms of infection Skin Assessment (Pre Procedure) FTPM Pre-Care Text: Implements protective measures to prevent skin/ tissue injury due to thermal or mechanical sources Evaluates for signs and symptoms of physical injury to skin and tissue Entry 1 Skin Integrity Intact, [place], Warm, and Skin Abnormality No Dry Outcomes Met? Yes Last Modified By: Altagracia Yan RN 11/18/22 13:07:08 Post-Care Text: The patient is free from signs and symptoms of injury caused by extraneous objects Patient Positioning FTPM Pre-Care Text: Identifies physical alterations that require additional precautions for procedure-specific positioning, verifies presence of prosthetics or corrective devices, positions the patient, evaluates the patient for signs and symptoms of injury as a result of positioning Entry 1 Procedure MEDIAL BRANCH Body Position Prone BLOCK(Left) Feet Uncrossed? Yes Left Arm Position Resting at Side Right Arm Position Resting at Side Left Leg Position Extended Right Leg Position Extended Positioning Device Pillow Under Head Large, Safety Strap, Pillow Large Under Knees Press Points Checked Yes By Altagracia Yan RN Outcomes Met? Yes Last Modified By: Altagracia Yan RN 11/18/22 13:09:26 Post-Care Text: The patient (more content not included)... Normal Flores [facility] Main OR Preoperative Recordo n 11-18-2022 Main OR Preoperative Record Holding Area Document Type FTPM Summary Primary Physician: Garrett Dennison MD Finalized Date/Time: 11/18/22 12:22:26 Pt. Name: LILO REYES /Sex: 1955 Female Med Rec #: [id number] Physician: Garrett Dennison MD Financial #: [id number] Pt. Type: P Room/Bed: / Admit/Disch: 11/18/22 12:06:15 - Institution: Case Times Holding FTPM Pre-Care Text: Verifies consent for planned procedure, identifies individual values and wishes concerning care, includes family members in perioperative teaching Secures patient's records' belongings, and valuables, maintains patient's dignity and privacy, and maintains patient confidentiality Entry 1 In Holding 11/18/22 12:17:00 Outcomes Met? Yes Last Modified By: Angela Hu RN 11/18/22 12:17:19 Post-Care Text: The patient participates in decisions affecting his or her perioperative plan of care The patient's right to privacy is maintained Surgery Checklist FTPM Entry 1 Patient Birthday, ID Band Procedure History and Physical, Identification: Check, Patient Verification: Surgical Consent, With Participation Patient NPO after Midnight: n/a Date/Time: 11/18/22 09:00:00 Results Reviewed eggs and toast Personal Items: Cataract Lens Implant Comments: Complaints of Pain: Yes Pain Comment: 9/10 to lower back and left groin Operative Site Yes Marked By: operative site marked Marking: by Dr. Dennison Availability Equipment, X-Ray Verified: Does Patient Smoke No Patient states Yes Comment - Adult Bill- postop adult Supervision supervision available Case Cancelled in No Holding Area see comments below for reason Last Modified By: Angela Hu RN 11/18/22 12:22:21 Finalized By: Angela Hu RN Document Signatures Signed By: Angela Hu RN 11/18/22 12:22 Normal [facility] Coding Summary.on 11-13-2022 Coding Summary. CD:[id number] Ww+PGhlYWQ+ NT0ZVWFvH79vcCZdfP7yY2ZHBIvQKym vQUIFHZkKNsDufcOfVV2scVUvJWPw IC8+GE3iWYXwOdhonEQhx9L2kKU3H29 jkp2sKGwcxPB9JNYeGxYypujus4mhwW m7UFggXrmlDhQr NYEisY12AES0aB93Bf02tLYqbNVpp5t ioLa2ZoZdVSVpSAC5jZumZKbdu0ZsWF VjN46mlKXka1A7 PXZjlMyvzXAwCqYwsGE4mL2zISknnex qr6cachibLft3lh69zNQox9Z2eTH6F8 QlmtK4KJKvcDZy IzzwmNBMpV0jvsggm3inzbnxExPlVDB bJDq0PYe6MKMgwZfkYjKpOP65TLW8YT LeaxNvT1VwWMPq tRwoIeT8r6F5Ka4HR9WEIpntG7ASQTV SWTwvdGQ+MR02pb34T7TvJyzuJkq0BR RqJMH6zQT5bR5y WNKxWNyfh3D5nNR2H1VrcmRpgo2lz8k jYKYrXZvkN24wjGIny1X4IEKxyDL2ZO AdzGakZrMqsX07 Oyc+NXPnzPmhw7PwShtuh0opz6xyiMe 8LzcjTGNljbAxqKglAQE9u4PeMg8pBC DirIT9oLH6iB9b RwAsBrR1GNjoJ964VvSdzGBqZblcG71 kB3XvqIK+DMOxTaa6ZNDyxXxoTF9uV7 BhZGRpbmctbGVm xTerEN0cXDBzupqrDPEttK9sWQNdW2v 8DfSsQwP7OSjpB7TeWABmdnqbTx37hM 8fOgUwXfO0JKhh F6XhtkM8YVKqtNUtXBczFHF1L81ea0H 5RVYsGMFrNUQ7zDP1qX7sePkdeesqrN VmdDsgdmVydGlj AVioUJxiX278FXMppYvfAfPuAYzxMrG EYXRlOiAgMDMvMzEvMjAyMzwvdGQ+PH TwMRU0sLoqHTZw rJLdMQqsMp9euVuleGvbSM6iFTYptix qVETheB5tJUZntEVstNpgVC3zPARoyr uod296LuXaAFI4 RDZmbOZcQ8NvnR9oDvZhDQJzPIIaP9B kpDWnUXsfI263SBhdHnE5YROubhRmT7 FsLWFsaWduOiB0 j7X1Bm5Xl5BveaqnX9BmdGSyJdFvDin cXTn3Q1VjKhgsmTJ+UY89EGQsQG82HU u9HVM5aUbiYIrp SDRqT3XjgO2jPyWoLRXxMEIiZys+PHR hYmxlIHdpZHRoPScxMDAlJyBzdHlsZT 5bOs5nACJvYCOn mMzioMQqQzObj5mgDLZeTTzdUP3kaPe cW2WdiMT5ZTFzb3x5Lc77I67oJ4XonJ A+ZKMukPF7kBG3 xZ7uAgOtLgN7LSzzT911YwYkdWXhLam yb2nuf9yhgNa2XnT8RCQhfwVyfAnlZU B9t5OvUu31N27a SMecHRFvVYLwFAYhNMEfhOzgby9gkN1 wIi8+NKSxlLM2fNN0wP6yVsRaRqO0OB daK098DcWjzYFs Lwtar0dcv6vxqCs0XaVdITBqlcCupYb zHSI3b9IoWe24X2BdeJxay2DdTeo6jn 72hOYnx5D8dWT5 K4JfMUSoyfwfqSSdvMljEK8gLPAondi oZNEvsH2nZEDgO2j2TvWgGwW1AVosZ9 XhqfT1LTRweTRa GYDscTMCaY7hllrqg9xzhshtCoAqVBS tVHj0WXn1PLVoaNkxDhNlPUB1MoD4LN W0lSIobT3ruXwi iadvmN9yAeg+NKC1qMBpaPHIYY0pPrf vdGQ+ACIiEDR4zKzlHKwmCLFitK1uKU PlB4d8ZsLtUnD6 GIozO3XvsvO0OAXuyXIoFHRcqQUZlV7 mlftum2okzeypEyQwMMKnAYq9BJl1SF FsaWduOiBsZWZ0 MlR6NJG3mDFtzY0aqDfzghvmhI1qHep +MvyzlFtvJDA1MFq2T3AxOqd7MDWopC vsBP3mmNXpWUhk Ly9qrWizvAzwER7lVPDdqnpwe984AwI ll2qbTQYatAXlJFcbOFR3B40nx0A9MF BlJMFeLKB4oVE9 mK2bkIfzrrlijFEbcPniezYigXfjQUx lLKidD761ZAXswYhkFcWgHHw9O1EvXr q6VEUszOrwYA1n mKOyCSczHq6acFskzXqxYL2dKZYmtje xe758FgAls0wkLFFwvKLxKPayNMD1V0 2op3H1ZWGxNBId LQX1vGA3rO6cjLfcxhgttYWobFqfojM mvVwfKKtrTYfuQ072NJMoqNbqXtVylX e8M9WlSng3FWFw rPinPM7mnVKsWFlzXi4wpYwmfDxbWH1 vIBStqaobj034QjKig4hmDYLibHBgIT maPDF0C21ft5W9 DTDqDXVdAPS6mSY7kQ7btRsylprpqJC uxOgadeFcxHerFBifMEhpJ108GNWusC snPlBhdGllbnQg EAeoLWe6V2VtHxncjZS+IG66CCDjHX3 4mILgjQKes0shkQc2XfNnPPIdWVL7qE qlTEcbr3ZuZHJc U53slVYnm3H9FDAypOliiMAvNpNvcZZ 8rJ3fGEjlhqyzl0rvegqmTjuud8tvmb 76aN73F87tKFvm PYQqHOXcXVWsWPKezFbpso4xtS1cZq0 +MTPgnUZ0mHQ8vE9xJECcPxB5NRdwK9 49InRvcCIvPjxj x7fxj0aozJk3BaA2ASCdruXouAolYVA 8m2PuSw26B56gYHuhYYYdCSNbKHLqNV WnmSwjiy7zjM5a Ii8+WDHfiHY9xXW3hN8nWtKvMoI5HXl mA407TyRkvKOpTfqbY30rG4PjkBH+PH UtKut4DMAcoFnd CS0rkDFzPNgzCr3oCNK4DpAlKqRwQHs rF5BzFGNojlyyhevpmIF0HPXpDWXoxA 75Ly9fvRpvNPPe zLQHbI5lqixbn5zeakqhWaTgSCLpPIu 8ZTm0UBUesCuzIvGpJYH9DyX6DPM2gB ZhpH0bzSulwpiw wT8tR2MyZOQacvvoIf52wT8fVuTtBxE 1MGluOyc+PAsIDEJHACUEIK3QKN83O6 JbCob4YWQzyUnp US0oiOKqTLpcFk8fpSthdYleNN2uJBQ qlxcvQTPqiK9hBVJpfVHytVmaAC4sHO Qsbfmok196PyOv IKZ8VHWzpKQfB8AvtT5bGsJdTCNuXIS fQ8PorVNhGYbkV283IAthDrO6UBUrem RaE5TyFZTqsMgb VqD4v1S0Hm9oUO7dDm9aMHFwSU42QH1 0xOXxm3G9hVE2T2NtFCHjsqwrdixxuU J5NGAtQWOwtG35 lZDoZCrdTh3sy7P5p015NGEtMOVnnV5 4Ji1ysAyvINXrfUFGyS4sqxgtc8wech ogIzAwMDAwMDt0 LTn2HYNeuYipRnKvUYY7QqI0HFI1mMQ deD4maBrzdmpilN8jNgl+NjkgWWVhcn G1D2FqJeb1XKPw tGlzMP2nbHNgHSrmEb2npGckxRnmWG1 nYXGlhjaaHHUxsD0jMXRipIUniWuvPL 9lALWmpomfa143 ZfUeHRP3SDUehHAnJ7IawO9kZvEqNOQ fBDNxM2PgsHKeXAuxW592FVsrAwI8LP BkmzGvY1LbHNAs hZpcWwP7w5U3Rl6DDO8jqYJ8F4AeTwq 0HYYacVluFW7jpBPyOPowJq8ekDwlfO wyKM0oMJCyqczg MLEwaU3yDZRerUMowHbmCC2oFYHlaxg qc856TwHuFST3QOMfoUBfN4GlwQ2gIw ViRYVpTVQlS2Ih ePNmIQfwM268ZTsjToJ7UQDwuzJqE9V uCALssGnoDcQ0i2O3Av5YzFWnFJAhZY 18MB56RX32S9Ri PjwvdGFibGU+PHRhYmxlIHdpZHRoPSc hIMUsHqHxrGfjZI3uAf5dOPBfEVGhiR vavFSyRjBiy1as JMCsDIipHU4jeLluY7RwuLV5SXUqw8k 8Fr21Z02sA6UniFB+EHTpeJX2sJH2oV 1qRhRnYmO6RHcq H184FtIkqHBgEgcwj4dus8havCe0YiH iNTSacyOsbSajFGE4d2VlOq67L77nWN dpZHRoPSIyMCUi ZXRehYqzjm0naJ5pMd0+SMSxbLK4uKJ 2eS3jWaGgPpY2HXflE236MuQjfXRuYb ngN34tU2BdfZP+ LOBvHyc4YFDlvEurAM2ieHWdSHulNp1 oMSA2SyGsTjZwLJyeP4YoNNXulhohxx xyvJQ1CCNwDQYe mC82Pc3wfPhiOz8bMXLuGAF1OPPegKB dP9RwhV5eSkHpIYUjKVBtI4YzgLFhVF wrV375RVhpIqW6 IFAthtAeU3LwMGUxjAjaZxW2b8H3Un3 HvTsfuYAgGU0uKtKrUIt6W0UiKwq3NZ WqmZtgZS3qgKOv PFryOl3dyXavbWdpUF0lBPHzghsig92 9XoEqe8cuFHHypUXbJRtcOMN6L02ab4 F7DDVcHYPmCZT7 cZU6kY4vuAvakrzxkXFuwGvguqIatYk nAQydHRcfA825ADOrpYtzIgWWXdp9H7 IlLhr3PUMrfJek AF6edMJnEDjoLy5axRlutEptXR0hDTX mwpmcv797BzQta4uhXNPltYZoYDxvLP A1E83ux7H1JBYc YTOlJFM0sPB4aV6soZbqmvdmnAJfxMz nirMaxPokJIquBEjsC286PLGkaUrtIb 1OPaa9W6MhJie9 JFBhpKhhXK0qvVUwTWveKv6ufWhcaDb jLK0kPEWtjsxej925WmPcv8saOAHupJ TmKNhtZDF4L71p o8Y3INOrKMTfCYK5jDI5cX8uzYcqzon thZVvmHykuwHfiBayAAmxGKkhT842RJ RvcDsnPlBheWVy OjwvdGQ+TT20vk08T7XsTfhcDsr0SAR tYZI9mUJ2fF9aTLEcADskd4P0vQB7N7 BrljNbqo7xt4qv YXBzZTog (more content not included)... Normal [facility] Coding Summary.on 11-12-2022 Coding Summary. CD:[id number] Ww+PGhlYWQ+ DE5XPSPoG43jjLObfM5qL9BVSMhOPxe wEYCOZCoCPsJvyrEqVM3fjXQrXSJt IC8+WK7jMYXyRuqpzVDbg3J4gBP3N28 tzg5gIMpruDA4ZUXrRvRqquajc5surP m8ZValFmkcJoEj ROBucS71JVU3jO88Kc73gHAuzCDye3k ftIb1RnPpKKAmPXH7nAveQOpiz5HuVK DiL94saRFih4F0 OZZkcKtaaFPxKtOprPD2hZ7tXDhnekz vb8vgbwxnEfg2br90tUYke2W9qXX5L6 XvrgE6HURpoBEk UsyykMVNxM8olihdd6pjbakoQdTkBUP hYSt1XPh6OZTydAeiAzZdQL20CRP0RX RqouSlI6DxNVGu iGnqGiP7k1H0Au9NK6VLQbusJ3WPEQW SWTwvdGQ+EB58cv54W3OrLdzdFdr7MM WwYST2oWF8jT4g RMCjLVovz7W4xLS0N3AmsdThvi7ca2g wPTXcJVyeQ32eaFZvm9V6PFEczJE4EE UzeWhvVaRymO45 Oyc+LMFaaIvjn1DtYnteq5wbj9nboKj 7KinpEQEkflZebSrqXXV7m2XsDl5kNB HjsZJ8vIT1cW4j DpPmGgI3OUneP712FhLzpHNlTfttT22 rQ1XrdCB+JCQfInv1NEAesNlyBR2cN3 BhZGRpbmctbGVm vEbcIW2iRBPhfeaiOCJcvP5bMNFbM2n 5VmHzZiJ1MLswQ0PaMNNpwvteWa42gO 7jUeVhMnO0XQbb K3JlvyO2WHNtuJZpVQdxYNK5W54oy0E 9CECvMLRuODK6qEP1wD2vzJnhcgpccB VmdDsgdmVydGlj ANifDXwlF095JZQqgPonJtFyLGxlNqC EYXRlOiAgMDMvMzAvMjAyMzwvdGQ+PH KiGMT3jRewHBIo tXKzIKmgAb1znTimuRtqKP9nUZCpulm pBICggQ9rSOVrvSOgqDiwVX0yATIwyh fqp865PjOdNEF9 LNQetGUgF3SnmE8gElNtDXQuKQXnN4P vmLLkXMryA582DPvkQcQ3GUMwoaGdH0 FsLWFsaWduOiB0 s9I8Ut2Eh7OsityrC5UksCDoBlRzElp mXPn6T3TxHgjquOL+HU23GPFuAX77TB y0COP2vKgzSPqa RNZrC7PleK4dQoKvPGJhMNItJbm+PHR hYmxlIHdpZHRoPScxMDAlJyBzdHlsZT 0lUi0eZDKrEZXr oWungDCvJtMer5zjOTSbJPduIM8emCq qC5GgdCA5IPSov7y8Ay81X53qI1AwnV A+LPOmfAL6bXR3 gG3iHcUkCaZ3BOtbM633KoAxwAVhPjh kf8jwj7gkzEs9VfA9OZAltbZijQmtNL R6p0GkBc01I87e NVoeWXAiCVGuFWGrKUHimVoqra5kpT0 wIi8+PTBduQW0oZD8vO6eAjDjXrS6LI wgV856KwMokPSg Ncczq1duq9nhtZi0NsDgEYSftrWztHd nGQE6b0LmXl53G1XyaJffi0DjMtt8ot 67zXZow9D0hKZ7 S2KpYTLzbkqhdVRzlWneAY0cUJBoqnq mZUYvwX3iEMLcN2g0XpQcNkU6PZqbZ2 AqxjF0OBZtfUZs VCNiyTUOpG4dlmdcj1ehppfvIkNlPVU sFUm8MQa8XRDorNceYdBtHZC8IoI1YM K2pQUbaW2onUaq mqufnQ4yDjq+BDP2dADycFXZQT6tAnl vdGQ+RIVlNFI1zXcqUBihUSMrjL6uHF ZeO4c5VkIeWcI3 YOzqI5QrayD5ZDWvdKDwHNUtgAFNqM5 rxsgto9hitfdoLfTgHEPnCKl5KVt7JZ FsaWduOiBsZWZ0 HoK7RXG3kSYjdP5gzXlilomykI1pAmi +NxzjePlsGAD3QJv7Z3BrYon7WWMltO qmRI4rfYEqNXsa Jt4fiYudfNeiOF4mHXKjcdvrt361NeU fc3usJKNiuQPfRXhxUSL9C23tl0P4TF ZmTNTpBPR5xBR8 nH7dnNrwqqecfZJraSmmihWlkTecAOt sURakM159YFAmhBhiTfEcOQv9V2LuEm h7FJGpqTwqPI3s wZDeGLukUm7voIeugLruUI1nNNNgwjs sx406YeMfd9shNKOkfQNiLIlvACF8V6 1ru2W1HCYqMPVw SKS5oVO1gQ9daUyiowqesNKxsDpenmR ouSrpCXcwDMqlU823XXJraOvvCcRbgW m4H6LoRhw5ENCl pEznGV6xuHWaULpuKt7nyPdnlGzbGF4 oAGSskfofu235XzKrz4tvUDXywLEmEU zuSEJ8D75qb3P8 FTPkMYCtBJR8dGY0cW3lbKrlhwhwkIL asGfcofTrvGnhWDndVHqgE030ZYAmqI snPlBhdGllbnQg LDtwLEr5I1CnXxuysPC+YE44EYLnCE3 2eRTtyUAve8vozWh3YqCaHEQeXCB7vW yiWLdxz9UcCODg B67qmVGqb5L0SMJcjEsgvJMjRqKseGZ 3uY2sJCqpelkpz3mmyqtrQpxut5baby 09nL93N29bHUon SZJnBUBxPGYqEVYgjNgyoz1ipL1tNa2 +SNAxoRD0yPS7yH5mAHZqSzR3RRwxX6 49InRvcCIvPjxj a1gkk0xgwPr6TmV9REDsduDmlDioHTG 2l0MiPe51W18fYIekWACzDIBpJPLpHT SwzZjaek4sxU0i Ii8+VLXijGU1gTJ6jZ0kLrSrOeU1UCd bD855BnGqmHOxBffnL02yH3NevCD+PH ErWri1ZVHivSep IV3cnXMsTCzwNp7aLDN5RwVeQrPzFMh tR5YiPOEfiqdxvmhzsIB9PFFeHGSfwD 78Vu4goGspYPNc uKJJiV5imvlto1cuilcmPrXgBDPjEAg 8NDw1DTCqlSleGqKtGCG3AyU1OCR9iE FwyW6fnExoextc cM7aE5PzTVEfnvyqPm65kO7zGwLhNeD 1MGluOyc+YKvNRLSRMNVBFJ8GUL35E0 TfVeq6XDGvgWbc DY8quGHcYSgeJm1qcGfhyZvkWT4nMXI sdmmdWXIsrR6dHTXfxEFrpWfbQT9cPO Jwgofju567FeUl RTP6JURmhJZxM9EbvD9vYsBzJFRiPDN iQ7XnsJLsIHjbY648QPopBiP5UZFnbd GbZ6NeOXAmbNwp KxB6m9M6Nr0rKJ9bUx8uOJXjVO10VW9 3wVOac1Z2pLY4M8ZcDAJzacdfylonyS V0GYBgEMJgaO48 mRZoJRbkTx3oa1P9p716NODxAQBehP6 4Mr5jqFifVLVzcEYVnY0vqnqek8mstv ogIzAwMDAwMDt0 AJf0TOSrgYauFoNsMQD1KqH7GMH2qZK leS1vuYxpnnjmkN1zPkp+NjkgWWVhcn E6X9EvWnt8ZCZe xLlbGM5wgDDeJTwmNm0ldGunnQquRZ6 jLFIcdnqzGLSvbX2dCYXoeFKtxPowPZ 2cXPBbntmuc593 SgCdUXS6XVUagZBhU2VukK3pCaRnFRY kTLKjX3TwuUBgKYgpY511ZQjbLuJ3WS KsjtUeF0PcPUUe dTvxKeC3r1N4Ir9UGK3qqBY2J4ClBra 3EKIjrNdgXQ2gxBXpULtuHg7huAaudQ gdMY1wUHXhzijt RMXyjL8xPAAfrZFdqRczNZ5cHCTbqxo ge452TsRpXCS2GBJxvFXdQ9UabU6bGn GjSWWpCBOlC4Og sEBaRAnhA614DAfpYpF4IVFgbvThQ3D eRYNiyQncOuW1t1F8Ra1BQLpqFV4etv KnDR8lnrH0M1Ds PjwvdHI+KU92GROoPF40gJPnzKIfa2u ryHz9KiWiQCTgLHO9oXdnKKfrf6OyCA LsI76ogPCcf5J9 ARYzmQxsyGGdNtUxjUY5qJ9sOWouxzk sg4fahdqpXpasx2gwhz39jG52Y01nMV dpZHRoPSIzMCUi YDFelZviqi5esR2jBr9+SWYbkWT9lXJ 9cX0eDmLiNzY5LWjqY568NvBvxREeXq tnk9azs6tosHh6 XeSyTHLzurHllQqbHZL1s4SvTp22Z88 cOAtpUOGzGDElOSMlCHIofTffwm9esB 9wIi8+CI5je3lv lp83vY56kWU+TMFvKWA7iTkjIVhmFII pbE5jVGbjYkW4YAYwGcOnlW33wFShTF ekRv9alDpyrWxy GZ7oNAScnlpin131DuUgo0egIXQdbMF cDHtxYKZ7D19mk6O3MLRxXDAjOAJ0aA H7lL3wfBlcabbd tEQwhUkzxbZjtUqhBAszRFjjU465HFA wgHhfZtHslZExJ6etbzZSRW3yRbuwgW Q+GELuITJ3dUfh VYiyTOFxoL0fWOVuO4n5BaBdApJ8DZc bC0RipjW8RMWyuBXvUFUjeWOBcK1ldp uhr3sopfavGfIi XQSsDQi7OWx2YOMqsTzkJaNaPUQ0EiW 6SJK1aRRhbJ8htHdcnnjhnY6dSvm+Rk lOOjwvdGQ+PHRk HPL8oZizREisCLQplG2fPQClM2g6DpQ vTfB0HHxsP7UnpuQ0AGDmwVPvPDCgyU PKxM1fnqtxb4ek rnkuAvTuTKBsJGk5OWx0MRIsvMvjMuZ xTWZ6AxH2LBX7rVVtkE7nzJbyhwmwzY 9wOyc+TVJOOjwv dGQ+RKNbPLX6hGwdCTzfUAXskL2eQVK qM3j4XlSnAeY7SQyeT8UpklV6FZXlrV PoMSNjiOONaS4g mwmnz9dlvkuyFcVqQCLbAQe1JRk1HLC weOvcUmKsMCJ7WhF2MQM8cDZwsP4dhC kzrdoqbU2dQzh+ SNB0ABJ0OA24LU12J3AeGhcynDNacDH +PHRhYmxlIHdpZHRoPScxMDAlJyBzdH jhSB2kTk0ePDNf LWNvbGxh (more content not included)... Normal [facility] Consent for Treatmenton 10-15 Consent for Treatment [id number] Normal [facility] Consultation Noteon 11-12-19 Consultation Note Chief complaint: Lef t-sided low back pain History of present illness: This is a 67-year-old female here for chief complaint of left-sided lower back pain. She reports that since her last visit the symptoms have been persistent and unchanged. The pain is constant but much more severe when she is standing and walking. At worst it gets up to an 8 out of 10. She describes it as a sharp sensation. She denies radiation down the extremities. She denies any significant right-sided pain. She has had this severe pain for over 3 months. She denies numbness, tingling, weakness, or loss of bladder or bowel control. She has done 6 weeks of conservative management with physical therapy and NSAIDs. She had a consultation with her spine surgeon who did not recommend surgery. She reports that the pain is severe enough that she can only lift light weights, walks less than 1/4 mile, and can only stand for 10 minutes at most. She also has some right shoulder pain particularly when she raises her right arm above her head. She has had a rotator cuff issue in the past and reports that this feels similar. She has been doing the therapy exercises that she learned previously for that and reports they have been helpful. The patient denies additional neurologic symptoms or issues with bladder or bowel control. The patient's past medical, surgical, and social history along with medications and allergies were reviewed. Review of systems was done on 10 systems Physical examination: General: Pleasant white male in no acute distress. Vital signs stable Head exam: Head is normocephalic and external ears normal Neck exam: No tenderness Cardiovascular exam: No signs of poor perfusion and no peripheral edema Respiratory exam: Breathing is unlabored and there is no wheezing present Abdomen exam: Abdomen soft and nondistended Back exam: Left-sided lower lumbar paraspinal tenderness at the L5-S1 level exacerbated with facet loading Musculoskeletal exam: Strength 5 out of 5. Muscle tone is normal. Pain with abduction of the right shoulder past 90 degrees Neurologic exam: Sensation intact. Reflexes diminished but symmetric. Psych exam: Affect is appropriate he is alert and oriented Skin exam: No lesions Assessment: This is a 67-year-old female seen for chief complaint of left-sided axial lower back pain. I think her signs and symptoms are most consistent with lumbosacral spondylosis and facet arthropathy. At the left L5-S1 facet joint given that she has had a fusion at L4-5 this would be a logical consequence. She may also have sacroiliitis on that side however her tenderness seems like it is exactly at the lumbosacral level so I think facet pathology is more likely. She does not have any evidence of neurogenic claudication or radiculopathy. Her x-ray did show degenerative changes in the left L5-S1 facet joint. She also has right shoulder pain consistent with right shoulder arthropathy and I reviewed her right shoulder x-ray with her as well. It was notable for some degenerative changes along with an inferior spur at the AC joint. This would predispose her to rotator cuff impingement. This is a manageable issue for her at this current moment so I advised her to continue with the range of motion exercises for her shoulder. Leonard disability index was 58 OARRS was reviewed and was appropriate Plan: We discussed options and since she has failed appropriate conservative management with therapy and NSAIDs and is having severe left-sided axial pain that is limiting her function and was not recommended for surgery we will proceed with a trial of diagnostic medial branch blocks for the left L5-S1 facet joint. I went over the pros and cons of this plan and she was in agreement to proceed. If she has a good temporary response we could consider a radiofrequency ablation for long-term relief. I instructed her to continue with her home exercises for both her back and her shoulder and I will see her for follow-up 2 weeks after the procedure for repeat evaluation. Normal [facility] Comment on above: Result Comment: Elec tronically Signed By: Juma DUBON, Garrett\.br\Date and Time Signed: 11/11/22 15:22 EDT Office/Clinic Note-Physician on 11-11-2022 Office/Clinic Note-Physician [id number]#1.00CD:127 Normal [facility] Patient Correspondenceon Patient Correspondence [id number]#1.00CD:127 Normal [facility] Patient History Officeon Patient History Office [id number]#1.00CD:127 [facility] Coding Summary.on 11-10-2022 Coding Summary. CD:[id number] Ww+PGhlYWQ+ DH5ONLPiG28tqMTrtA0sO1RLGKyLVtr iLZPFOGyNGxBeehEjIX0vpYSsZFHd IC8+LZ7cBGZgQbogpZGzf8X7wUQ9V17 kor8vNAtobHB9UAOhOgTjhlixh4qfcU t6WUxyIliwKcCo DXUmkS07OWL8tV64Ss68lZPuqMGib4d ctJy7HwSqPKGxSNO3lOkvRQjus3EnRA KdZ50ckMIga7U6 XWPidUjtaXQaHqFjpVH7qN0eSConkoc ht9phwknpUof7zk71lWQgb3B6iST4G8 JzqdO1PIYwcDMc JdypwEDToX3yrhiic2cnrsvySvTrUPY pXFd4TRj1DOZmiYvcRuSzXP16KYG1ST JjicCvJ4YxMBWa kShxCzS6o8S6Se0AT0MUEfjjA2CVWPU SWTwvdGQ+DA28ms11D9AbHykhRcq4XO XnTIR8jTX2nU1z LGIrILldq5Z2xRV6I0IbdlWppp0hf7w jBXHaHChqL35yfELbp8U1SRPeqPI3HC FpeDjzKpEjaB03 Oyc+TIKndLudk3HkGurjm0nmy5hlgDg 8TjknPGHhivVgqWepFNO1k4PxMr6qHF FftIR5oUL5rP2z FzFsBzF1CKelJ531YjLlqDNcEjzwZ05 pO2AhxCS+HFYaUms9VKHeeNjuUZ2wN4 BhZGRpbmctbGVm pUnpCQ5yWTFtlipgIWVeeF8pDFEjT5w 0ZuJqAkE4DSslT6KeQSYplpjdYg73gI 7cTcQoSiD0EOrt I1DjlpX6LLVpbOBzZLqcWTR2H74cn3K 0RBGdZMItRCK1jTV6tK7prEdjtbxekM VmdDsgdmVydGlj NYnxBZitC796QINnfFlrCyWeYHcoMaN EYXRlOiAgMDMvMjgvMjAyMzwvdGQ+PH MhCHX8vJieRKCh rEIiBHfsWf8vuBpecYziHS5kVNOaoyp vCBYakW7bJJGazEZgoXvzZB7hWCNcdn azy681EtMkFRC6 BVOezKVmE1OhwB1mDqYmBMJeKKUsN4M xoAQpHEluC677RNenMoG8QEWifqGdC7 FsLWFsaWduOiB0 p8R6Ag9Cu3BdvrvbO2PfpSJyGuRgKkb yFHm9F1JyMhetiRG+QH37DFVnFS07DE z6UFO1eLszBEtq ZLYoO9RpmN0sZrCyEWEeODVgZlf+PHR hYmxlIHdpZHRoPScxMDAlJyBzdHlsZT 5vAj6uAJRwXFVn zCcrfNKcNjTtn7uaSSGuMHilPZ6wiGt uI7EopJV2XNUab0x5Po72X81tW8RtfA A+HXTldED2mUA5 eO5uVzOfQqQ7ILpwG298RtXqqFJvTwq dr9mmm2pwyEh2YfZ6ZVYwimRpbOttPP N1z4UxPs53E06q APtyWPShTCGjRFEyPEWqlQlwlz6ymC2 wIi8+MVNdwHQ7aMG0eV9jRgFqZsV6XT irE306PcPlkAFv Cqpik1mfv4hwtNj6VzEfZVTfwrZtaTj fHNK0g3ByAj12R7OhmRxeb6LhPxz5ap 40tUMzu5F4kZO4 Y6IiNRNydhypbRYhnNxmAM1nCAWvhvo sPGTxjY3jCQNfH6c8IfFyNkJ8HBbmU6 WfcfY7EWOscGCc JLDfxAYCeK0nqugha8eyuhyaLsOqMPR nCSh5WOn9QTFetUcdPdVwCVW5RvM6JX H1iTMwsU0fePrp tebqiC9zFxf+KCJ7yVJsdUGLIR6bSmv vdGQ+WAGxPUL5vYlyHCtwESDutB4sQK DyF0n8GuLfFbD5 JInhR1LbuhN6BKEekPRlJONmhZWQyY8 gmtdpq2tjkgnuHbMbKIMrPIw0APf0ZQ FsaWduOiBsZWZ0 MxA7AKZ7nDBcwK5qwQrwwiflrD6zYic +IqabiLekPCM3OXr7C3LoNgf0CRPckR cjTD3rbVErTAhp Hh5ksQadyHdnKM5eBCZrolvkj325NcT zu6rvWPYtqAGoJUfrVWP3F19df6K8LS JzFLWkFLS6kQU2 fR5nhIwebfyynMPwaBldftKddPgyQPy iXZlhW380QPTlgRdiFsJzZBg7M4VsUj q4XMRrbJggOH0r xYSqHWwwGr7xdQsxdKzeMW2gUYQhbcc rr202IhAyq2ljKOGamTFyEOuaGGU2I0 9to3T6DVVaMVYn YUQ6aZI5dX2ykIwvxhlscVVkbTavwwD kzQgsEEtpIDksV563IZSfjQqxQjZnjQ w0V7NbBjs4CXTv nIdtZS1qoBChQCwyXv7idEttqVjpWV2 yULLugkbns907WyMpb7ywODPgkCRmDG gpSXR1M79wx2I7 FUTxQOWnSNV0rYX1pZ1ccZdmkoxyyMN tcYilkwMzwIetOAbuAKkyC864LJNyiH snPlBhdGllbnQg GFsgQIq2M7YbMedpfHG+MR16LXJdXF8 6oWCaoYCfp2hurPf6HgAeXFLhOPJ1bV jmAApxa2KjNSTw D96beHTbw5T1JKQyjCiqtPGrAoRomVT 4rN7eGKawjwmkm7ornberZzkyl2tncr 63eZ97U66eFGnl VFRaVKKkUVByTJPtpOdfin9zyZ8eVa6 +UAFuiEA0kSB5yQ7zDRTgRmK6EYfaX1 49InRvcCIvPjxj y1mnf9thoZj7SgH8BBJohxCuvXnbBMP 1x3EbDn48I27fVWbvQPErJJFoKWWpZQ KymVmgqv3reS4s Ii8+ZBEznZN8sYR1tG5nUjTuNkY8NHi bP904CsOgiVVtIddiF16eC0GqcGW+PH CaQya1QPGnqMgo XG4ifUZxUYufSw1kFJO8IgGwYfRvTSy lQ1JzDPYyiwwjscrxmFC7CMCwKESsgE 78Zf8nkIygUVYi sCBDdY9foenzi2ozeorvCgJiJJOfPRj 5IKw9MGJpkVclRbQoNQB3OcX6SLA1qY KoyO6elIijluqe qG7zH1HcBSRnnvbwXx83wX1yYmAgMxD 1MGluOyc+UZjNJUUIFPKUUT3MXN92P2 PtRmw5WGMvkCec CL4uuSDgAEyfNa5woKlfcCfdMX6uSWL cnabbAXNpxI5yOEFrsQKjmKuhSM7jOG Sxhhred336OtEu MFC7YNLumWJzI1MqxT6uTyCyTPDkXLW xJ6YpjSHkELxcK912CAgyDcQ0LDBkzt VaM9PxAJHuvBta GqQ8o6G7Ng0lAY1oJq8bABKeRM59UK5 4fADzp4X8cJF9A4JqGQEpypxykfpedH T7XIIoSUVwcS74 pAEpATitIb4pj7G5y652MXBbJDPipN0 6Oe4sgOcvFBDuvCJLpI1fjftox9nbeq ogIzAwMDAwMDt0 RPb0EYQjmTagFhBgAQJ7HvL3XGO5tUC rqT4ofIeuxrysgN9jZea+NjkgWWVhcn F2Z1JgQhd8JIDy dZenLZ1buZZrZBxiGa9vkOfpfEekOU5 zATKjvawwYKDwdZ4kYNGgbVWxbKykWG 4gJZYniczna632 PwTeYHT1SDJicCRiF5RcgQ3aCgRpUSP sZSQzF1LuvHZrGEyuD814FDwpCcO6LJ SwqzDtD8BpELZz eYlrBlC5v9R9Cr4NKG9ukVI2H7PoZst 1NAHluScsXL4ucSNlADgoFh7lyLidhI kbBO2oQVOjtxct PBTwsT8hWAQwcHRroDjmAW0kTDBnlvb qf190FjYkZTF1DOJzwQZaY4PpaL1fFu DuIOAyXBHoA7Sz uMDhEHyhH868YYqzKwX4IGExxyLfU2W rJHDgeSkmSeV1j3S4Pp7JCHfcHN4ets PmHM5avmM9K7Ki PjwvdHI+DJ86NTLxKN63gIGpqVUib1a skXi4RpKkKVKvSDK2vFfzXXiic0VkUM MaJ52mkVZbt1B7 XMBkkNkmiFVnOqWcrHY3jA3cZBonssv vt3vqmcriKhudq3ujpk86zH20U11wUK dpZHRoPSIzMCUi UYXmaMrbht4qyU7sQj3+WCKxqWZ8oOC 3kL8lElDlXuW7FAnaZ740GaDiaXOiSi zkf1rbl8zbcZl6 EsKzNYNkebAopLhjDDU1t0CuBb49J78 fDLqoBQZaIELwWDPzTOPolNjcfz7efL 9wIi8+TS9ja3ki eq65yK76iKM+WFApDIT9gKnzFFcpLEE blO7oCKpqVcF6HXNuGwMcdY95tPDiBU feQm9pxHwhvIsj WB6oTKDemvqgb629TfOnv6jkUWRzbDO qAAxsIMW2Q67op5Y3PFNbGKWjZVT2gW A7pJ3skJablapc fZTzlCpnvlYbiLavYOfjBHtcP895DXM geZmuYbQsdBDiR7rjibXKBC0qFaxzeR Q+GFSjOVF2sZks CJwfNFLmzG5cKVQoM6o6NvDjYrH1HEi hG6FzofC3UAUdjJKbUYUqpGQOuE1zrr tea1bvcjpgNvXu VFRgKNs7ASv7RWRspPosCeXmWXI7XfG 8HDC7iYVeeC3bxFqgpxrusP4yMux+Rk lOOjwvdGQ+PHRk RMO6hHxsYVwlIRLrsF2oIAFeK3h6GxF gPbD2HUbkG7BjaeV5NJWymYEwIGOksV BQjH5cvsdsl7pv rwqxGlIgOQBfJDd1IXv8QKWyaCesBjC sUIN2MpG8NLX4yGVhvK4asUykbimvmX 9wOyc+TVJOOjwv dGQ+PATxJHG6fWjuMGfxQNQooK3lXKZ aT3c0VbWfJlR2ORbxC1XszvB2IGEqeV MzTQVgxLOJxK2q gfhrl3eccailOiIvSVTrDKu7EEz7JFB amUzqFmJjAMR8PuF5CHK0dHYbvT2mmO uxllwqcP7pHju+ WSI7KKX4VN51PJ00Z1ClQoquwGVbyMG +PHRhYmxlIHdpZHRoPScxMDAlJyBzdH ggAM0dFj8cTERj LWNvbGxh (more content not included)... Normal [facility] Patient Correspondenceon Patient Correspondence [id number]#1.00CD:127 Normal [facility] Consent for Treatmenton 10-15 Consent for Treatment [id number]#1.00CD:127 Normal [facility] Consent for Treatment [id number]#1.00CD:127 Normal [facility] HIPAA Forms Officeon 023 HIPAA Forms Office [id number]#1.00CD:127 [facility] Legal Correspondence Officeo n 11-05-2022 Legal Correspondence Office [id number]#1.00CD:127 [facility] Legal Correspondence Office [id number]#1.00CD:127 [facility] Office/Clinic Note-Physician on 11-05-2022 Office/Clinic Note-Physician [id number]#1.00CD:127 [facility] Patient Correspondenceon Patient Correspondence [id number]#1.00CD:127 [facility] Patient Correspondence [id number]#1.00CD:127 [facility] Patient Correspondence [id number]#1.00CD:127 [facility] Patient Correspondence [id number]#1.00CD:127 [facility] Patient Correspondence [id number]#1.00CD:127 [facility] Patient History Officeon Patient History Office [id number]#1.00CD:127 [facility] Physician Orderon 11-05-2022 Physician Order [id number]#1.00CD:127 [facility] Physician Order [id number]#1.00CD:127 [facility] XR Shoulder Complete Righton 11-05-2022 XR Shoulder Complete Right Exam Date/Time: 11/05/2022 11:39 EDT Reason for Exam: Pain, Non Traumatic Report IMPRESSION: NO ACUTE OSSEOUS ABNORMALITY. EXAM: XR Shoulder Complete Right HISTORY: Shoulder pain COMPARISON: None available TECHNIQUE: AP internal, external rotation views , axillary view, and a Y view of the shoulder obtained. FINDINGS: No acute osseous abnormality. Mild degenerative changes of the acromioclavicular joint with small undersurface osteophyte formation. Soft tissues are within normal limits. Ordering Provider: Garrett Dennison FINAL REPORT Dictated: 11/05/2022 3:50 pm Alexis Patel DO Signed (Electronic Signature): 11/05/2022 3:50 pm Signed by: Alexis Patel DO Transcribed by: NOEMI Technologist: MARIO Technical Comments Radiation Dose: Ka,r in mGy = na DAP = na Normal [facility] XR Spine Cervical 6 or More Viewson 11-05-2022 XR Spine Cervical 6 or More Views Exam Date/Time: 11/05/2022 11:38 EDT Reason for Exam: M46.1 Report IMPRESSION: DEGENERATIVE CHANGES OF THE CERVICAL SPINE. EXAMINATION: XR Spine Cervical 6 or More Views TECHNIQUE: AP, lateral, bilateral oblique, and odontoid views. Lateral flexion/extension views. CLINICAL HISTORY: Neck pain and right shoulder pain COMPARISONS: None available. FINDINGS: Straightening of the cervical lordosis. Cervical vertebral body heights are maintained. Minimal anterolisthesis of C5 on C6 is not simply changed with flexion or extension. Mild intervertebral disc height loss at C5-6 and moderate intervertebral disc height loss at C6-7 and C7-T1. Mild multilevel degenerative endplate spurring. Facet arthropathy throughout the cervical spine. Osseous neuroforaminal stenosis at C3-4 on the right secondary to facet arthropathy and uncovertebral hypertrophy. The lateral masses of C1 articulate symmetrically with C2. Atlantodental interval is preserved. No acute fracture. Prevertebral soft tissues have a normal appearance. Ordering Provider: Garrett Dennison FINAL REPORT Dictated: 11/05/2022 3:47 pm Alexis Patel DO Signed (Electronic Signature): 11/05/2022 3:47 pm Signed by: Alexis Patel DO Transcribed by: NOEMI Technologist: MARIO Technical Comments Radiation Dose: Ka,r in mGy = na DAP = na Normal [facility] Outside Records Officeon Outside Records Office [id number]#1.00CD:127 Normal [facility] Outside Records Office [id number]#1.00CD:127 Normal [facility] Radiology Outside Office Museum Guide yon 10-23-2022 Radiology Outside Office Copy [id number]#1.00CD:127 Normal [facility] Radiology Outside Office Copy [id number]#1.00CD:127 Normal [facility] Radiology Outside Office Copy [id number]#1.00CD:127 Normal [facility] Referrals Officeon Referrals Office [id number]#1.00CD:127 Normal [facility] XR lumbar spine 6V w bending on 10-16-2022 XR lumbar spine 6V w bending [facility] [place] [address] XRay Report Signed Patient: Lilo Reyes MR#: [id number] : 1955 Acct:[id number] Age/Sex: 67 / F ADM Date: 10/16/22 Loc: XD Room: Type: [facility] Attending Dr: Eder Gonzalez MD Copies to: Eder Gonzalez MD Ordering Provider: Eder Gonzalez MD Date of Service: 10/16/22 XR/XR lumbar spine 6V w bending: M54.50 LUMBAR PAIN LUMBAR SPINE - 6 views CLINICAL HISTORY: Chronic right lower back pain after fall in August. COMPARISON: Lumbar spine 09/15/2022 FINDINGS: Posterior hardware fixation L4-L5 without evidence of hardware complication. Vertebral body and disc space heights appear unchanged with scattered endplate and facet joint degenerative changes with 3 mm of retrolisthesis of L2 on L3. No pathological motion on flexion or extension views. Limited left-sided sidebending. XR/XR lumbar spine 6V w bending IMPRESSION: NO EVIDENCE OF HARDWARE COMPLICATION OR SIGNIFICANT CHANGE IN LUMBAR SPINE FINDINGS COMPARED TO THE 09/15/2022 STUDY. Impression dictated by: Melquiades Monique Jr., DMary Carmen10/16/2022 11:23 AM Dictation Location: [place] [address] Transcribed By: [facility] 10/16/22 112 Dictated By: Melquiades Monique Jr, DO 10/16/22 1121 Signed By: 10/16/22 1123 [facility] MRI LSPINE WO CONon 09-28-19 MRI LSPINE WO CON EXAMINATION: MRI LSP INE WO CON HISTORY: Degeneration of intervertebral disc COMPARISON: 08/15/2019 TECHNIQUE: A variety of imaging planes and parameters were utilized for visualization of suspected pathology. FINDINGS: For the purposes of numbering, sagittal T2 image # 8 extends from the T10-T11 vertebral body superiorly to the S2-S3 level inferiorly. PARASPINAL AREA: Normal with no visible mass. BONES: Interval posterior decompression and transpedicular fusion at L4-L5 with resultant metallic susceptibility artifact. 6 mm anterolisthesis of L4 in relation to L5. Moderate diffuse degenerative spondylosis. No acute fracture. Heterogeneous signal of the vertebral bodies likely represents age-related changes CORD/CAUDA EQUINA: Normal caliber, contour, and signal intensity. DISC LEVELS: 12-L1: Moderate degenerative disc disease is present without visible neural impingement. L1-L2: Moderate degenerative disc disease is present without visible neural impingement. L2-L3: Moderate degenerative disc disease is present without visible neural impingement. L3-L4: Disc desiccation. Posterior broad-based disc herniation of the protrusion type extending up to 4.4 mm. Moderate ligamentum flavum hypertrophy and facet osteoarthropathy. Mild narrowing of the central canal. No right foraminal stenosis. Mild narrowing of the left neural foramen, sagittal image 5 L4-L5: 6 mm anterolisthesis of L4 in relation L5. Posterior decompression and bilateral transpedicular fusion. Mild disc/osteophyte complex. No central or foraminal stenosis. L5-S1: No significant disc/facet abnormality, spinal stenosis, or foraminal stenosis. IMPRESSION: L4-L5 fusion with 6 mm anterolisthesis of L4 in relation L5 Progression of degenerative changes resulting in mild narrowing of the left L3 L4 neural foramen Electronically authenticated by: FRANCOIS ALBERT Date: 2022-09-28 16:30 Normal [facility] CBC AUTO DIFFon 09-17-2022 BASO # 0.1 103/ul Normal 0.0-0.1 [facility] Comment on above: Performed By: #### C BC #### [facility] [address] [address] [address] Jase Woodward Basophils/100 WBC (Bld) 0.9 % Normal 0.2-2.0 [facility] Comment on above: Performed By: #### C BC #### [facility] [address] [address] [address] Jase Woodward EO # 0.3 103/ul Normal 0.0-0.7 [facility] Comment on above: Performed By: #### C BC #### [facility] [address] [address] [address] Jase Woodward Eosinophils/100 WBC (Bld) 4.5 % Normal 0.9-7.0 [facility] Comment on above: Performed By: #### C BC #### [facility] [address] [address] [address] Jase Woodward Erythrocyte distribution width (RBC) [Ratio] 14.9 % Normal 11.0-15.0 [facility] Comment on above: Performed By: #### C BC #### [facility] [address] [place] [address] Dr. Jase Woodward Hematocrit (Bld) [Volume fraction] 43.3 % Normal 36.0-48.0 [facility] Comment on above: Performed By: #### C BC #### [facility] [address] [address] [address] Jase Woodward Hemoglobin (Bld) [Mass/Vol] 13.0 g/dL Normal 12.0-16.0 [facility] Comment on above: Performed By: #### C BC #### [facility] [address] [place] [address] Dr. Jase Woodward IG # 0.01 10e3/ul Normal 0.00-0.03 [facility] Comment on above: Performed By: #### C BC #### [facility] [address] [place] [address] Dr. Jase Woodward IG % 0.2 % Normal 0.0-0.5 [facility] Comment on above: Performed By: #### C BC #### [facility] [address] [place] [address] Dr. Jase Woodward LYMPH # 1.8 103/ul Normal 1.2-3.8 [facility] Comment on above: Performed By: #### C BC #### [facility] [address] [place] [address] Dr. Jase Woodward Lymphocytes/100 WBC (Bld) 31.4 % Normal 20.5-60.0 [facility] Comment on above: Performed By: #### C BC #### [facility] [address] [place] [address] Dr. Jase Woodward MANUAL DIFF REQ NO Normal [facility] Comment on above: Performed By: #### C BC #### [facility] [address] [place] [address] Dr. Jase Woodward MCH (RBC) [Entitic mass] 26.9 pg Normal 26.7-34.0 [facility] Comment on above: Performed By: #### C BC #### [facility] [address] [place] [address] Dr. Jase Woodward MCHC (RBC) [Mass/Vol] 30.0 g/dL Normal 29.9-35.2 [facility] Comment on above: Performed By: #### C BC #### [facility] [address] [place] [address] Dr. Jase Woodward MCV (RBC) [Entitic vol] 89.6 fL Normal 81.0-99.0 [facility] Comment on above: Performed By: #### C BC #### [facility] [address] [place] [address] Dr. Jase Woodward MONO # 0.4 103/ul Normal 0.3-0.8 [facility] Comment on above: Performed By: #### C BC #### [facility] [address] [place] [address] Dr. Jase Woodward Monocytes/100 WBC (Bld) 7.1 % Normal 1.7-12.0 [facility] Comment on above: Performed By: #### C BC #### [facility] [address] [address] [address] Jase Woodward NEUT # 3.3 103/ul Normal 1.4-6.5 [facility] Comment on above: Performed By: #### C BC #### [facility] [address] [place] [address] Dr. Jase Woodward Neutrophils/100 WBC (Bld) 55.9 % Normal 43.0-75.0 [facility] Comment on above: Performed By: #### C BC #### [facility] [address] [place] [address] Dr. Jase Woodward Platelet mean volume (Bld) [Entitic vol] 11.3 fL Normal 9.5-13.5 [facility] Comment on above: Performed By: #### C BC #### [facility] [address] [place] [address] Dr. Jase Woodward PLT 221 103/ul Normal 150-450 [facility] Comment on above: Performed By: #### C BC #### [facility] [address] [place] [address] Dr. Jase Woodward RBC 4.83 106/ul Normal 4.20-5.40 [facility] Comment on above: Performed By: #### C BC #### [facility] [address] [place] [address] Dr. Jase Woodward WBC 5.8 103/ul Normal 4.0-11.0 [facility] Comment on above: Performed By: #### C BC #### [facility] [address] [place] [address] Dr. Jase Woodward LIPID PROFILEon 09-17-2022 CHOL-HDL RATIO NORM SEE BELOW Normal [facility] Comment on above: Result Comment: 3.3 - 4.4 LOW RISK 4.4 - 7.1 AVERAGE RISK 7.1 - 11.0 MODERATE RISK >11.0 HIGH RISK Performed By: #### C MP, LIPID #### [facility] [address] [address] [address] Jase Woodward Cholesterol [Mass/Vol] 222 mg/dL Critically high <=200 [facility] Comment on above: Performed By: #### C MP, LIPID #### [facility] [address] [address] [address] Jase Woodward Cholesterol in HDL [Mass/Vol] 55 mg/dL Normal 40-60 [facility] Comment on above: Performed By: #### C MP, LIPID #### [facility] [address] [place] [address] Dr. Jase Woodward Cholesterol in LDL [Mass/Vol] 129.4 mg/dL Normal [facility] Comment on above: Performed By: #### C MP, LIPID #### [facility] [address] [place] [address] Dr. Jase Woodward Cholesterol.total/ Cholesterol in HDL [Mass ratio] 4.0 {ratio} Normal [facility] Comment on above: Performed By: #### C MP, LIPID #### [facility] [address] [place] [address] Dr. Jase Woodward HDL NORMAL > or = 60 mg/dl - LO W CARDIOVASCULAR RISK <40 mg/dl - HIGH CARDIOVASCULAR RISK Normal [facility] Comment on above: Performed By: #### C MP, LIPID #### [facility] [address] [place] [address] Dr. Jase Woodward LDL CALC NORMAL SEE BELOW Normal [facility] Comment on above: Result Comment: <100 mg/dl OPTIMAL 100 - 129 mg/dl NEAR OR ABOVE OPTIMAL 130 - 159 mg/dl BORDERLINE HIGH 160 - 189 mg/dl HIGH >190 mg/dl VERY HIGH Performed By: #### C MP, LIPID #### [facility] [address] [place] [address] Dr. Jase Woodward Triglyceride [Mass/Vol] 188 mg/dL Critically high <=150 [facility] Comment on above: Performed By: #### C MP, LIPID #### [facility] [address] [place] [address] Dr. Jase Woodward VLDL CALC 37.6 mg/dL Normal [facility] Comment on above: Performed By: #### C MP, LIPID #### [facility] [address] [place] [address] Dr. Jase Woodward PROF 14(COMP METB)on 023 Albumin [Mass/Vol] 3.9 g/dL Normal 3.4-5.0 [facility] Comment on above: Performed By: #### C MP, LIPID #### [facility] [address] [place] [address] Dr. Jase Woodward Albumin/Globulin [Mass ratio] 1.1 {ratio} Normal [facility] Comment on above: Performed By: #### C MP, LIPID #### [facility] [address] [place] [address] Dr. Jase Woodward ALP [Catalytic activity/Vol] 65 U/L Normal 46-116 [facility] Comment on above: Performed By: #### C MP, LIPID #### [facility] [address] [place] [address] Dr. Jase Woodward ALT [Catalytic activity/Vol] 23 U/L Normal 14-59 [facility] Comment on above: Performed By: #### C MP, LIPID #### [facility] [address] [place] [address] Dr. Jase Woodward Anion gap [Moles/Vol] 13.7 mmol/L Normal [facility] Comment on above: Performed By: #### C MP, LIPID #### [facility] [address] [place] [address] Dr. Jase Woodward AST [Catalytic activity/Vol] 16 U/L Normal 15-37 [facility] Comment on above: Performed By: #### C MP, LIPID #### [facility] [address] [place] [address] Dr. Jase Woodward Bilirubin [Mass/Vol] 0.3 mg/dL Normal 0.2-1.0 [facility] Comment on above: Performed By: #### C MP, LIPID #### [facility] [address] [place] [address] Dr. Jase Woodward Calcium [Mass/Vol] 9.7 mg/dL Normal 8.5-10.1 [facility] Comment on above: Performed By: #### C MP, LIPID #### [facility] [address] [place] [address] Dr. Jase Woodward Chloride [Moles/Vol] 105 mmol/L Normal 98-107 [facility] Comment on above: Performed By: #### C MP, LIPID #### [facility] [address] [place] [address] Dr. Jase Woodward CO2 [Moles/Vol] 28.0 mmol/L Normal 21.0-32.0 [facility] Comment on above: Performed By: #### C MP, LIPID #### [facility] [address] [place] [address] Dr. Jase Woodward Creatinine [Mass/Vol] 0.69 mg/dL Normal 0.55-1.02 [facility] Comment on above: Performed By: #### C MP, LIPID #### [facility] [address] [place] [address] Dr. Jase Woodward EGFR-AF SAMMARINESE >60 Normal >=60 [facility] Comment on above: Performed By: #### C MP, LIPID #### [facility] [address] [place] [address] Dr. Jase Woodward EGFR-NON AF SAMMARINESE >60 Normal >=60 [facility] Comment on above: Performed By: #### C MP, LIPID #### [facility] [address] [place] [address] Dr. Jase Woodward Globulin (S) [Mass/Vol] 3.7 g/dL Normal [facility] Comment on above: Performed By: #### C MP, LIPID #### [facility] [address] [place] [address] Dr. Jase Woodward Glucose [Mass/Vol] 109 mg/dL Critically high 74-106 T [facility] Comment on above: Performed By: #### C MP, LIPID #### [facility] [address] [place] [address] Dr. Jase Woodward Potassium [Moles/Vol] 4.7 mmol/L Normal 3.5-5.1 [facility] Comment on above: Performed By: #### C MP, LIPID #### [facility] [address] [address] [address] Jase Woodward Protein [Mass/Vol] 7.6 g/dL Normal 6.4-8.2 [facility] Comment on above: Performed By: #### C MP, LIPID #### [facility] [address] [address] [address] Jase Woodward Sodium [Moles/Vol] 142 mmol/L Normal 136-145 [facility] Comment on above: Performed By: #### C MP, LIPID #### [facility] [address] [place] [address] Dr. Jase Woodward Urea nitrogen [Mass/Vol] 19.0 mg/dL Critically high 7.0-18.0 [facility] Comment on above: Performed By: #### C MP, LIPID #### [facility] [address] [place] [address] Dr. Jase Woodward Urea nitrogen/Creatinin e [Mass ratio] 27.5 mg/mg Normal [facility] Comment on above: Performed By: #### C MP, LIPID #### [facility] [address] [place] [address] Dr. Jase Woodward XR LSPINE MIN 4 VIEWSon 08-18 XR LSPINE MIN 4 VIEWS EXAMINATION: XR LSPINE MIN 4 VIEWS HISTORY: Left side sciatica ; low back and left leg pain since falling 2 weeks ago COMPARISON: XR L-spine 03/14/2021 FINDINGS: BONES: Posterior mechanical fusion L4-5 via bilateral pedicle screws and rods. Posterior decompression of L4. Stable grade 1 anterolisthesis of L4 on 5. Moderate degenerative facet arthropathy L3-4 through L5-S1. DISC SPACES: Intervertebral spacer at L4-5. Multilevel mild disc space narrowing. PARASPINOUS: Negative. No paraspinous abnormality is seen. OTHER: Negative. IMPRESSION: 1. Stable surgical changes and multilevel mild degenerative changes. 2. No appreciable acute abnormality. Electronically authenticated by: LEXUS NEW Date: 2022-09-15 15:32 Normal [facility] LARGE JOINT/BURSA INJECTION AND/OR ASPIRATION: L kneeon 07-15-2022 Braulio Garay MD 2:16 PM LARGE JOINT/BURSA INJECTION AND/OR ASPIRATION: L knee Date/Time: 07/15/2022 9:30 AM Supporting Documentation Indications: pain Procedure Details: Location: knee - L knee Local Anesthetic: lidocaine 1% Needle size: 18 G Medication Verification: I have personally verified and performed the final check of the medication(s) used in this procedure prior to administration. The following items were included during the verification process for medication(s) administered: drug name, strength, volume, expiration, physical integrity and appearance of the medication(s). Patient tolerance: patient tolerated the procedure well with no immediate complications The patient was prepped with Chloraprep. [facility] Braulio Garay MD 2:16 PM LARGE JOINT/BURSA INJECTION AND/OR ASPIRATION: L knee Date/Time: 07/15/2022 9:30 AM Supporting Documentation Indications: pain Procedure Details: Location: knee - L knee Local Anesthetic: ethyl chloride (cold spray) Needle size: 22 G Medication Verification: I have personally verified and performed the final check of the medication(s) used in this procedure prior to administration. The following items were included during the verification process for medication(s) administered: drug name, strength, volume, expiration, physical integrity and appearance of the medication(s). Medications administered: 5 mL lidocaine 1% (PF) 1 %; 1 mL triamcinolone 40 MG/ML The patient was prepped with Betadine. [facility] No Panel Informationon 07-15 [facility] Radiology Study observation (narrative) [facility] MG MAMM SCREEN 3D BHARAT CADon 06-22-2022 MG MAMM SCREEN 3D BHARAT CAD Patient: LILO REYES Exam Date: 06/22/2022 : 1955 Gender:F Ordering : DR LEON SOLARES . Admission #: [id number] Family : Order #: [id number] CLICK HERE TO VIEW EXAM RADIOLOGY REPORT PROCEDURE: MAMMOGRAM SCREENING 3D BILATERAL CAD COMPARISON: MG MAMM SCREEN BHARAT W CAD, 06/11/2020. MG MAMM SCREEN 3D BHARAT CAD, 06/13/2021. INDICATIONS: Screening mammography Calculator Name NCI Breast Cancer Risk Assessment Tool 5 Year Breast Cancer Risk 3.60% Lifetime Breast Cancer Risk 11.30% Personal Breast Cancer No Personal Ovarian Cancer No Treatments None Family Cancers Mother with breast cancer at age 62; Aunt-maternal with breast cancer at age 72; Aunt-maternal with breast cancer at age 73; Mother with uterine cancer at age 47; Father with lung cancer at age 63. LOCATION: [facility] BREAST COMPOSITION: Scattered areas fibroglandular density. FINDINGS: DIAGNOSTIC CATEGORY 1--NEGATIVE. NO CHANGE FROM COMPARISON ASSESSMENT. Scattered benign-appearing calcifications are present. Scattered benign-appearing lymph nodes are present. RIGHT BREAST: No significant suspicious finding. LEFT BREAST: No significant suspicious finding. RECOMMENDATIONS: ROUTINE MAMMOGRAM AND CLINICAL EVALUATION IN 12 MONTHS. PLEASE NOTE: A NORMAL MAMMOGRAM DOES NOT EXCLUDE THE POSSIBILITY OF BREAST CANCER. A CLINICALLY SUSPICIOUS PALPABLE LUMP SHOULD BE BIOPSIED. Dictated by: Francois Albert MD on 06/22/2022 at 12:06 Approved by: Francois Albert MD on 06/22/2022 at 12:11 Normal [facility] MRI Knee w/o Lefton 02-26-20 22 MRI Knee w/o Left History: Internal de rangement. Popping when getting up. Technique: Multiplanar multisequence MRI of the knee was performed without contrast. Comparison: Radiographs of the knee 01/22/2022 Findings: Mild distal quadriceps tendinosis. Moderate patellar tendinosis. Small joint effusion. Postsurgical changes of total knee arthroplasty with associated artifact. Bone prosthesis interface appears within normal limits. The medial collateral ligament, lateral collateral ligament, and popliteus myotendinous unit appear intact given hardware artifact. Popliteal fossa structures are intact. No Garrett cyst. IMPRESSION: Postsurgical changes of total knee arthroplasty. Bone prosthesis interface appears normal. Small nonspecific knee joint effusion. Mild distal quadriceps tendinosis. Moderate patellar tendinosis. Report reported and signed by Alexis Patel on 02/25/2022 1411 Normal [facility] C-Reactive Proteinon 022 CRP IV 0.8 mg/dl Normal <5.0 [facility] Comment on above: Performed By: #### C RP, ESR #### [facility] [address] [place], [place] [id number] RBC Sedimentation Rateon ESR (Bld) [Velocity] 18.00 mm/h Normal 0.00-30.00 [facility] Comment on above: Performed By: #### C RP, ESR #### [facility] [address] [place] [id number] Basic Metabolic Panel Reflex Mgon 06-28-2020 Anion gap [Moles/Vol] 10 mmol/L Normal 9-15 [facility] Comment on above: Performed By: #### B MPX #### [facility] [address] [place] [address] Calcium [Mass/Vol] 8.7 mg/dL Normal 8.5-9.9 [facility] Comment on above: Performed By: #### B MPX #### [facility] [address] [place] [address] Chloride [Moles/Vol] 104 mmol/L Normal 95-107 [facility] Comment on above: Performed By: #### B MPX #### [facility] [address] [place] [address] CO2 [Moles/Vol] 25 mmol/L Normal 20-31 [facility] Comment on above: Performed By: #### B MPX #### [facility] [address] [place] [address] Creatinine [Mass/Vol] 0.59 mg/dL Normal 0.50-0.90 [facility] Comment on above: Performed By: #### B MPX #### [facility] [address] [place] [address] GFR/1.73 sq M predicted among blacks MDRD (S/P/Bld) [Vol rate/Area] mL/min/{1.73_m2} Normal >60 [facility] Comment on above: Result Comment: >60 mL/min/1.73m2 EGFR, calc. for ages 18 and older using the MDRD formula (not corrected for weight), is valid for stable renal function. Performed By: #### B MPX #### [facility] [address] [place] [address] GFR/1.73 sq M.predicted MDRD (S/P/Bld) [Vol rate/Area] mL/min/{1.73_m2} Normal >60 [facility] Comment on above: Result Comment: >60 mL/min/1.73m2 EGFR, calc. for ages 18 and older using the MDRD formula (not corrected for weight), is valid for stable renal function. Performed By: #### B MPX #### [facility] [address] [place] [address] Glucose [Mass/Vol] 126 mg/dL Critically high 70-99 [facility] Comment on above: Performed By: #### B MPX #### [facility] [address] [place] [address] Potassium reflex Mg 4.1 mEq/L Normal 3.4-4.9 [facility] Comment on above: Performed By: #### B MPX #### [facility] [address] [place] [address] Sodium [Moles/Vol] 139 mmol/L Normal 135-144 [facility] Comment on above: Performed By: #### B MPX #### [facility] [address] [place] [address] Urea nitrogen [Mass/Vol] 9 mg/dL Normal 8-23 [facility] Comment on above: Performed By: #### B MPX #### [facility] [address] [place] [address] Basic Metabolic Panel w/ Ref eamon to MGon 06-28-2020 Anion gap [Moles/Vol] 10 mmol/L [facility], [place] Calcium [Mass/Vol] 8.7 mg/dL 8.5 - 9.9 mg/dL [facility], [place] Chloride [Moles/Vol] 104 mmol/L [facility], [place] CO2 [Moles/Vol] 25 mmol/L [facility], [place] Creatinine [Mass/Vol] 0.59 mg/dL 0.5 - 0.9 mg/dL [facility] [place] GFR >60.0 >60 [place], [place] Comment on above: >60 mL/min/1.73m2 EG FR, calc. for ages 18 and older using the MDRD formula (not corrected for weight), is valid for stable renal function. GFR Non- >60.0 >60 [place] Comment on above: >60 mL/min/1.73m2 EG FR, calc. for ages 18 and older using the MDRD formula (not corrected for weight), is valid for stable renal function. Glucose [Mass/Vol] 126 mg/dL High 70 - 99 mg/dL [place] Interpretation and review of laboratory results Abnormal [place] Potassium [Moles/Vol] 4.1 mmol/L [place] Sodium [Moles/Vol] 139 mmol/L [place] Urea nitrogen [Mass/Vol] 9 mg/dL 8 - 23 mg/dL [place] CBC With Platelet and Differ entialon 06-28-2020 Basophils (Bld) [#/Vol] 0.0 10*3/uL Normal 0.0-0.2 [facility] Comment on above: Performed By: #### C BCWD #### [facility] [address] [place] [address] Basophils/100 WBC (Bld) 0.1 % Normal [facility] Comment on above: Performed By: #### C BCWD #### [facility] [address] [place] [address] Eosinophils (Bld) [#/Vol] 0.0 10*3/uL Normal 0.0-0.7 [facility] Comment on above: Performed By: #### C BCWD #### [facility] [address] [place] [address] Eosinophils/100 WBC (Bld) 0.0 % Normal [facility] Comment on above: Performed By: #### C BCWD #### [facility] [address] [place] [address] Erythrocyte distribution width (RBC) [Ratio] 14.2 % Normal 11.5-14.5 [facility] Comment on above: Performed By: #### C BCWD #### [facility] [address] [place] [address] Hematocrit (Bld) [Volume fraction] 32.8 % Low 37.0-47.0 [facility] Comment on above: Performed By: #### C BCWD #### [facility] [address] [place] [address] Hemoglobin (Bld) [Mass/Vol] 10.6 g/dL Low 12.0-16.0 [facility] Comment on above: Performed By: #### C BCWD #### [facility] [address] [place] [address] Lymphocytes (Bld) [#/Vol] 1.3 10*3/uL Normal 1.0-4.8 [facility] Comment on above: Performed By: #### C BCWD #### [facility] [address] [place] [address] Lymphocytes/100 WBC (Bld) 13.7 % Normal [facility] Comment on above: Performed By: #### C BCWD #### [facility] [address] [place] [address] MCH (RBC) [Entitic mass] 27.1 pg Normal 27.0-31.3 [facility] Comment on above: Performed By: #### C BCWD #### [facility] [address] [place] [address] MCHC (RBC) [Mass/Vol] 32.3 % Low 33.0-37.0 [facility] Comment on above: Performed By: #### C BCWD #### [facility] [address] [place] [address] MCV (RBC) [Entitic vol] 83.7 fL Normal 82.0-100.0 [facility] Comment on above: Performed By: #### C BCWD #### [facility] [address] [place] [address] Monocytes (Bld) [#/Vol] 0.6 10*3/uL Normal 0.2-0.8 [facility] Comment on above: Performed By: #### C BCWD #### [facility] [address] [place] [address] Monocytes/100 WBC (Bld) 6.8 % Normal [facility] Comment on above: Performed By: #### C BCWD #### [facility] [address] [place] [address] Neutrophils (Bld) [#/Vol] 7.4 10*3/uL Critically high 1.4-6.5 [facility] Comment on above: Performed By: #### C BCWD #### [facility] [address] [place] [address] Neutrophils/100 WBC (Bld) 79.4 % Normal [facility] Comment on above: Performed By: #### C BCWD #### [facility] [address] [place] [address] Platelets (Bld) [#/Vol] 204 10*3/uL Normal 130-400 [facility] Comment on above: Performed By: #### C BCWD #### [facility] [address] [place] [address] RBC (Bld) [#/Vol] 3.92 10*6/uL Low 4.20-5.40 [facility] Comment on above: Performed By: #### C BCWD #### [facility] [address] [place] [address] WBC (Bld) [#/Vol] 9.3 10*3/uL Normal 4.8-10.8 [facility] Comment on above: Performed By: #### C BCWD #### [facility] [address] [place] [address] CBC auto differentialon 06-162020 Basophils (Bld) [#/Vol] 0.0 10*3/uL 0 - 0.2 K/uL [place] Basophils/100 WBC (Bld) 0.1 % [place] Eosinophils (Bld) [#/Vol] 0.0 10*3/uL 0 - 0.7 K/uL [place] Eosinophils/100 WBC (Bld) 0 % [place] Erythrocyte distribution width (RBC) [Ratio] 14.2 % 11.5 - 14.5 % [place] Hematocrit (Bld) [Volume fraction] 32.8 % Low 37 - 47 % [place] Hemoglobin (Bld) [Mass/Vol] 10.6 g/dL Low 12 - 16 g/dL [place] Interpretation and review of laboratory results Abnormal [place] Lymphocytes (Bld) [#/Vol] 1.3 10*3/uL 1 - 4.8 K/uL [place] Lymphocytes/100 WBC (Bld) 13.7 % [place] MCH (RBC) [Entitic mass] 27.1 pg 27 - 31.3 pg [place] MCHC (RBC) [Mass/Vol] 32.3 % Low 33 - 37 % [place] MCV (RBC) [Entitic vol] 83.7 fL 82 - 100 fL [place] Monocytes (Bld) [#/Vol] 0.6 10*3/uL 0.2 - 0.8 K/uL [place] Monocytes/100 WBC (Bld) 6.8 % [place] Neutrophils Absolute 7.4 K/uL High 1.4 - 6.5 K/uL [place] Neutrophils/100 WBC (Bld) 79.4 % [place] Platelets (Bld) [#/Vol] 204 10*3/uL 130 - 400 K/uL [place] RBC (Bld) [#/Vol] 3.92 10*6/uL Low [place] WBC (Bld) [#/Vol] 9.3 10*3/uL 4.8 - 10.8 K/uL [place] Surgical Pathologyon 020 [facility] [address] [place], [place] [id number] FINAL SURGICAL PATHOLOGY REPORT Patient Name: LILO REYES Accession No: [id number] Age Sex: 1955 Location: [facility] [id number] Account No: [id number] Collected: 06/27/2020 Med Rec No: [id number] Received: 06/27/2020 Attend Phys: AMILCAR YATES Completed: 06/28/2020 Perform Phys: AMILCAR YATES FINAL DIAGNOSIS: SPINE: FRAGMENTS OF FIBROCARTILAGE WITH DEGENERATIVE CHANGES. PSW/PSW CLINICAL INFORMATION: Spondylolisthesis, spinal and foraminal stenosis, degenerative disc disease, radiculopathy. SPECIMEN: Disc GROSS DESCRIPTION: The specimen is received in formalin in a container labeled with the patient's name and designated as spine . The specimen consists of multiple pinkish-figueroa soft to firm tissue fragments measuring in aggregate 3.0 x 3.0 x 0.4 cm. Sections motor vehicle field representative are submitted in two cassettes after decalcification. SHARDA CPT: 96036 X1 72203 X1 AUTUMN FISHER M.D. 06/28/2020 Electronically signed out by Page 1 of 1 [place] XR LUMBAR SPINE (2-3 VIEWS)o n 06-28-2020 XR LUMBAR SPINE (2-3 VIEWS) EXAMINATION: XR LUMBAR SPINE (2-3 VIEWS) CLINICAL HISTORY: Postop COMPARISONS: TOTAL SPINE X-RAYS FROM JUNE 20, 2020 FINDINGS: Status post L4-5 discectomy and spacer placement with posterior fusion including transpedicular screws and vertical bars. There is mild, grade 1 anterolisthesis of L4 and L5. There are posterior midline surgical skin derrick. The remaining vertebral bodies are unremarkable. There is mild intervertebral disc space narrowing. There are no lytic bone lesions. The SI joints are symmetric, the prevertebral soft tissues are within normal limits. IMPRESSION: Status post L4-5 discectomy and fusion. Interpreted by: Yoel Hurley MD Signed by: Yoel Hurley MD 06/28/20 Final result Normal [facility] EXAMINATION: XR LUMB AR SPINE (2-3 VIEWS) CLINICAL HISTORY: Postop COMPARISONS: TOTAL SPINE X-RAYS FROM JUNE 20, 2020 FINDINGS: Status post L4-5 discectomy and spacer placement with posterior fusion including transpedicular screws and vertical bars. There is mild, grade 1 anterolisthesis of L4 and L5. There are posterior midline surgical skin derrick. The remaining vertebral bodies are unremarkable. There is mild intervertebral disc space narrowing. There are no lytic bone lesions. The SI joints are symmetric, the prevertebral soft tissues are within normal limits. [place], [place] Conrad, Chpo Incoming R adiant Results From [employer] - 06/28/2020 12:11 PM EST EXAMINATION: XR LUMBAR SPINE (2-3 VIEWS) CLINICAL HISTORY: Postop COMPARISONS: TOTAL SPINE X-RAYS FROM JUNE 20, 2020 FINDINGS: Status post L4-5 discectomy and spacer placement with posterior fusion including transpedicular screws and vertical bars. There is mild, grade 1 anterolisthesis of L4 and L5. There are posterior midline surgical skin derrick. The remaining vertebral bodies are unremarkable. There is mild intervertebral disc space narrowing. There are no lytic bone lesions. The SI joints are symmetric, the prevertebral soft tissues are within normal limits. IMPRESSION: Status post L4-5 discectomy and fusion. [place] Status post L4-5 dis cectomy and fusion. [place] Basic Metabolic Panel Reflex Mgon 06-27-2020 Anion gap [Moles/Vol] 11 mmol/L Normal 9-15 [facility] Comment on above: Performed By: #### B MPX #### [facility] [address] [place] [address] Calcium [Mass/Vol] 8.5 mg/dL Normal 8.5-9.9 [facility] Comment on above: Performed By: #### B MPX #### [facility] [address] [place] [address] Chloride [Moles/Vol] 107 mmol/L Normal 95-107 [facility] Comment on above: Performed By: #### B MPX #### [facility] [address] [place] [address] CO2 [Moles/Vol] 22 mmol/L Normal 20-31 [facility] Comment on above: Performed By: #### B MPX #### [facility] [address] [place] [address] Creatinine [Mass/Vol] 0.59 mg/dL Normal 0.50-0.90 [facility] Comment on above: Performed By: #### B MPX #### [facility] [address] [place] [address] GFR/1.73 sq M predicted among blacks MDRD (S/P/Bld) [Vol rate/Area] mL/min/{1.73_m2} Normal >60 [facility] Comment on above: Result Comment: >60 mL/min/1.73m2 EGFR, calc. for ages 18 and older using the MDRD formula (not corrected for weight), is valid for stable renal function. Performed By: #### B MPX #### [facility] [address] [place] [address] GFR/1.73 sq M.predicted MDRD (S/P/Bld) [Vol rate/Area] mL/min/{1.73_m2} Normal >60 [facility] Comment on above: Result Comment: >60 mL/min/1.73m2 EGFR, calc. for ages 18 and older using the MDRD formula (not corrected for weight), is valid for stable renal function. Performed By: #### B MPX #### [facility] [address] [place] [address] Glucose [Mass/Vol] 119 mg/dL Critically high 70-99 [facility] Comment on above: Performed By: #### B MPX #### [facility] [address] [place] [address] Potassium reflex Mg 4.1 mEq/L Normal 3.4-4.9 [facility] Comment on above: Performed By: #### B MPX #### [facility] [address] [place] [address] Sodium [Moles/Vol] 140 mmol/L Normal 135-144 [facility] Comment on above: Performed By: #### B MPX #### [facility] [address] [place] [address] Urea nitrogen [Mass/Vol] 13 mg/dL Normal 8-23 [facility] Comment on above: Performed By: #### B MPX #### [facility] [address] [place] [address] Basic Metabolic Panel w/ Ref aemon to MGon 06-27-2020 Anion gap [Moles/Vol] 11 mmol/L [place] Calcium [Mass/Vol] 8.5 mg/dL 8.5 - 9.9 mg/dL [place] Chloride [Moles/Vol] 107 mmol/L [place] CO2 [Moles/Vol] 22 mmol/L [place] Creatinine [Mass/Vol] 0.59 mg/dL 0.5 - 0.9 mg/dL [place] GFR >60.0 >60 [place] Comment on above: >60 mL/min/1.73m2 EG FR, calc. for ages 18 and older using the MDRD formula (not corrected for weight), is valid for stable renal function. GFR Non- >60.0 >60 [place] Comment on above: >60 mL/min/1.73m2 EG FR, calc. for ages 18 and older using the MDRD formula (not corrected for weight), is valid for stable renal function. Glucose [Mass/Vol] 119 mg/dL High 70 - 99 mg/dL [place] Interpretation and review of laboratory results Abnormal [place] Potassium [Moles/Vol] 4.1 mmol/L [place] Sodium [Moles/Vol] 140 mmol/L [place] Urea nitrogen [Mass/Vol] 13 mg/dL 8 - 23 mg/dL [place] CBC With Platelet No Differe ntialon 06-27-2020 Erythrocyte distribution width (RBC) [Ratio] 14.5 % Normal 11.5-14.5 [facility] Comment on above: Performed By: #### C BCND #### [facility] [address] [facility] [address] Hematocrit (Bld) [Volume fraction] 36.8 % Low 37.0-47.0 [facility] Comment on above: Performed By: #### C BCND #### [facility] [address] [place] [address] Hemoglobin (Bld) [Mass/Vol] 11.6 g/dL Low 12.0-16.0 [facility] Comment on above: Performed By: #### C BCND #### [facility] [address] [place] [address] MCH (RBC) [Entitic mass] 27.1 pg Normal 27.0-31.3 [facility] Comment on above: Performed By: #### C BCND #### [facility] [address] [place] [address] MCHC (RBC) [Mass/Vol] 31.5 % Low 33.0-37.0 [facility] Comment on above: Performed By: #### C BCND #### [facility] [address] [place] [address] MCV (RBC) [Entitic vol] 85.9 fL Normal 82.0-100.0 [facility] Comment on above: Performed By: #### C BCND #### [facility] [address] [place] [address] Platelets (Bld) [#/Vol] 217 10*3/uL Normal 130-400 [facility] Comment on above: Performed By: #### C BCND #### [facility] [address] [place] [address] RBC (Bld) [#/Vol] 4.28 10*6/uL Normal 4.20-5.40 [facility] Comment on above: Performed By: #### C BCND #### [facility] [address] [place] [address] WBC (Bld) [#/Vol] 7.1 10*3/uL Normal 4.8-10.8 [facility] Comment on above: Performed By: #### C BCND #### [facility] [address] [place] [address] CBC without Diffon 0 Erythrocyte distribution width (RBC) [Ratio] 14.5 % 11.5 - 14.5 % [place] Hematocrit (Bld) [Volume fraction] 36.8 % Low 37 - 47 % [place] Hemoglobin (Bld) [Mass/Vol] 11.6 g/dL Low 12 - 16 g/dL [place] Interpretation and review of laboratory results Abnormal [place] MCH (RBC) [Entitic mass] 27.1 pg 27 - 31.3 pg [place] MCHC (RBC) [Mass/Vol] 31.5 % Low 33 - 37 % [place] MCV (RBC) [Entitic vol] 85.9 fL 82 - 100 fL [place] Platelets (Bld) [#/Vol] 217 10*3/uL 130 - 400 K/uL [place] RBC (Bld) [#/Vol] 4.28 10*6/uL [place] WBC (Bld) [#/Vol] 7.1 10*3/uL 4.8 - 10.8 K/uL [place] FLUORO FOR SURGICAL PROCEDUR ESon 06-27-2020 FLUORO FOR SURGICAL PROCEDURES : 06/27/2020 9:36 AM CLINICAL HISTORY: R52 Pain ICD10. COMPARISON: None available. Intraoperative fluoroscopy was provided for Dr. Yates procedure. A total of 57.8 seconds of fluoroscopy was used, with 5 fluoroscopic stills saved. No diagnostic images were obtained. Please see Dr. Yates surgical notes for completeness. [place], [place] Conrad, Chpo Incoming R adiant Results From [employer] - 06/27/2020 1:32 PM EST FLUORO FOR SURGICAL PROCEDURES : 06/27/2020 9:36 AM CLINICAL HISTORY: R52 Pain ICD10. COMPARISON: None available. Intraoperative fluoroscopy was provided for Dr. Yates procedure. A total of 57.8 seconds of fluoroscopy was used, with 5 fluoroscopic stills saved. No diagnostic images were obtained. Please see Dr. Yates surgical notes for completeness. [place] FLUORO FOR SURGICAL PROCEDURES FLUORO FOR SURGICAL PROCEDURES : 06/27/2020 9:36 AM CLINICAL HISTORY: R52 Pain ICD10. COMPARISON: None available. Intraoperative fluoroscopy was provided for Dr. Yates procedure. A total of 57.8 seconds of fluoroscopy was used, with 5 fluoroscopic stills saved. No diagnostic images were obtained. Please see Dr. Yates surgical notes for completeness. Interpreted by: Duong Schroeder MD Signed by: Duong Schroeder MD 06/27/20 Final result Normal [facility] Surgical Specimenon 06-27-20 20 Surgical Specimen [facility] [address] [place], [place] [id number] FINAL SURGICAL PATHOLOGY REPORT Patient Name: LILO REYES Accession No: [id number] Age Sex: 1955 Location: [place] [address] Account No: [id number] Collected: 06/27/2020 Med Rec No: [id number] Received: 06/27/2020 Attend Phys: AMILCAR YATES Completed: 06/28/2020 Perform Phys: AMILCAR YATES FINAL DIAGNOSIS: SPINE: FRAGMENTS OF FIBROCARTILAGE WITH DEGENERATIVE CHANGES. PSW/PSW CLINICAL INFORMATION: Spondylolisthesis, spinal and foraminal stenosis, degenerative disc disease, radiculopathy. SPECIMEN: Disc GROSS DESCRIPTION: The specimen is received in formalin in a container labeled with the patient's name and designated as spine . The specimen consists of multiple pinkish-figueroa soft to firm tissue fragments measuring in aggregate 3.0 x 3.0 x 0.4 cm. Sections motor vehicle field representative are submitted in two cassettes after decalcification. MONICA/CLIF CPT: 71876 X1 25253 X1 AUTUMN FISHER M.D. 06/28/2020 Electronically signed out by Page 1 of 1 [facility] Comment on above: Performed By: #### S UR #### [address] [address] COVID-19, NAAon 06-23-2020 COVID-19, YANN Not Detected Normal Not Detect [facility] Comment on above: Result Comment: This nucleic acid amplification test was developed and its performance characteristics determined by [employer]. Nucleic acid amplification tests include PCR and TMA. This test has not been FDA cleared or approved. This test has been authorized by FDA under an Emergency Use Authorization (EUA). This test is only authorized for the duration of time the declaration that circumstances exist justifying the authorization of the emergency use of in vitro diagnostic tests for detection of SARS-CoV-2 virus and/or diagnosis of COVID-19 infection under section 564(b)(1) of the Act, 21 U.S.C. 360bbb-3(b) (1), unless the authorization is terminated or revoked sooner. When diagnostic testing is negative, the possibility of a false negative result should be considered in the context of a patient's recent exposures and the presence of clinical signs and symptoms consistent with COVID-19. An individual without symptoms of COVID-19 and who is not shedding SARS-CoV-2 virus would expect to have a negative (not detected) result in this assay. Performed at: [facility] Laboratory [facility], [place] [id number] Sole Layer: Blas Stone MD, Phone: [phone] Performed By: #### I RCOV #### [facility] [address] [facility] [id number] XR SPINE ENTIRE (2-3 VIEWS)o n 06-22-2020 There are no acute b ivana changes. There is mild S-shaped scoliosis of the thoracolumbar spine. [facility], [place] EXAMINATION: XR SPIN E ENTIRE (2-3 VIEWS) CLINICAL HISTORY: Z01.818 Pre-op examination ICD10 COMPARISONS: None available. FINDINGS: There are no lytic or sclerotic bone lesions. There is no fracture or subluxation, there is no loss of vertebral body height. There is mild patient scoliosis of thoracic and lumbar spine. There is intervertebral disc space narrowing at every level and there appears to be grade 1 anterolisthesis of L4 and L5 with partial segmentation at L5-S1. The SI joints are symmetric. The prevertebral soft tissues are within normal limits. There are no radiopaque foreign bodies. [place], [place] Conrad, Chpo Incoming R adiant Results From [employer] - 06/22/2020 3:14 PM EST EXAMINATION: XR SPINE ENTIRE (2-3 VIEWS) CLINICAL HISTORY: Z01.818 Pre-op examination ICD10 COMPARISONS: None available. FINDINGS: There are no lytic or sclerotic bone lesions. There is no fracture or subluxation, there is no loss of vertebral body height. There is mild patient scoliosis of thoracic and lumbar spine. There is intervertebral disc space narrowing at every level and there appears to be grade 1 anterolisthesis of L4 and L5 with partial segmentation at L5-S1. The SI joints are symmetric. The prevertebral soft tissues are within normal limits. There are no radiopaque foreign bodies. IMPRESSION: There are no acute bony changes. There is mild S-shaped scoliosis of the thoracolumbar spine. [facility] [place], [place] COVID-19, NAAon 06-21-2020 Source Swab Anterior nares Normal [facility] Comment on above: Performed By: #### I RCOV #### [facility] [address] [place] [address] Basic Metabolic Panelon 11- Anion gap [Moles/Vol] 10 mmol/L Normal 9-15 [facility] Comment on above: Performed By: #### B MP #### [facility] [address] [place] [address] Calcium [Mass/Vol] 9.5 mg/dL Normal 8.5-9.9 [facility] Comment on above: Performed By: #### B MP #### [facility] [address] [place] [address] Chloride [Moles/Vol] 105 mmol/L Normal 95-107 [facility] Comment on above: Performed By: #### B MP #### [facility] [address] [place] [address] CO2 [Moles/Vol] 27 mmol/L Normal 20-31 [facility] Comment on above: Performed By: #### B MP #### [facility] [address] [place] [address] Creatinine [Mass/Vol] 0.62 mg/dL Normal 0.50-0.90 [facility] Comment on above: Performed By: #### B MP #### [facility] [address] [place] [address] GFR/1.73 sq M predicted among blacks MDRD (S/P/Bld) [Vol rate/Area] mL/min/{1.73_m2} Normal >60 [facility] Comment on above: Result Comment: >60 mL/min/1.73m2 EGFR, calc. for ages 18 and older using the MDRD formula (not corrected for weight), is valid for stable renal function. Performed By: #### B MP #### [facility] [address] [place] [address] GFR/1.73 sq M.predicted MDRD (S/P/Bld) [Vol rate/Area] mL/min/{1.73_m2} Normal >60 [facility] Comment on above: Result Comment: >60 mL/min/1.73m2 EGFR, calc. for ages 18 and older using the MDRD formula (not corrected for weight), is valid for stable renal function. Performed By: #### B MP #### [facility] [address] [place] [address] Glucose [Mass/Vol] 100 mg/dL Critically high 70-99 [facility] Comment on above: Performed By: #### B MP #### [facility] [address] [place] [address] Potassium [Moles/Vol] 4.7 mmol/L Normal 3.4-4.9 [facility] Comment on above: Performed By: #### B MP #### [facility] [address] [place] [address] Sodium [Moles/Vol] 142 mmol/L Normal 135-144 [facility] Comment on above: Performed By: #### B MP #### [facility] [address] [place] [address] Urea nitrogen [Mass/Vol] 16 mg/dL Normal 8-23 [facility] Comment on above: Performed By: #### B MP #### [facility] [address] [place] [address] CBC With Platelet No Differe ntialon 06-20-2020 Erythrocyte distribution width (RBC) [Ratio] 14.7 % Critically high 11.5-14.5 [facility] Comment on above: Performed By: #### C BCND #### [facility] [address] [place] [address] Hematocrit (Bld) [Volume fraction] 37.5 % Normal 37.0-47.0 [facility] Comment on above: Performed By: #### C BCND #### [facility] [address] [place] [address] Hemoglobin (Bld) [Mass/Vol] 12.0 g/dL Normal 12.0-16.0 [facility] Comment on above: Performed By: #### C BCND #### [facility] [address] [place] [address] MCH (RBC) [Entitic mass] 27.4 pg Normal 27.0-31.3 [facility] Comment on above: Performed By: #### C BCND #### [facility] [address] [place] [address] MCHC (RBC) [Mass/Vol] 32.2 % Low 33.0-37.0 [facility] Comment on above: Performed By: #### C BCND #### [facility] [address] [place] [address] MCV (RBC) [Entitic vol] 85.1 fL Normal 82.0-100.0 [facility] Comment on above: Performed By: #### C BCND #### [facility] [address] [place] [address] Platelets (Bld) [#/Vol] 225 10*3/uL Normal 130-400 [facility] Comment on above: Performed By: #### C BCND #### [facility] [address] [place] [address] RBC (Bld) [#/Vol] 4.40 10*6/uL Normal 4.20-5.40 [facility] Comment on above: Performed By: #### C BCND #### [facility] [address] [place] [address] WBC (Bld) [#/Vol] 6.9 10*3/uL Normal 4.8-10.8 [facility] Comment on above: Performed By: #### C BCND #### [facility] [address] [place] [address] Partial Thromboplastin Timeo n 06-20-2020 aPTT Coag (Bld) [Time] 32.1 s Normal 24.4-36.8 [facility] Comment on above: Result Comment: Effe ctive 06/19/2020: Heparin Therapeutic Range: 64.0 ? 98.0 seconds. Performed By: #### P TT #### [facility] [address] [facility] [place] [address] Prothrombin Timeon 0 INR Coag (PPP) [Relative time] 0.9 {INR} Normal [facility] Comment on above: Performed By: #### P T #### [facility] [address] [place] [address] PT Coag (PPP) [Time] 12.6 s Normal 12.3-14.9 [facility] Comment on above: Performed By: #### P T #### [facility] [address] [place] [address] Type and 3 cell Screen OB Ca ptureon 06-20-2020 Type and 3 cell Screen OB Capture PATIENT: ERCI OLSON LOC: [place] BILL# : [id number] : 1955 SEX: F ORDERED BY: ELVI Arellano ORDERED : 06/20/2020 16:07 COLLECTED: 06/20/2020 16:09 ORDER : [id number] RECEIVED : 06/20/2020 17:32 TEST NAME RESULT UNITS RANGES ABN FL ST AB[facility] Capture A POS F Antibody 3 Cell Scrn Captu NEG F Normal [facility] Comment on above: Performed By: #### T SO3C #### [facility] [address] [place] [address] XR SPINE ENTIRE (2-3 VIEWS)o n 06-20-2020 XR SPINE ENTIRE (2-3 VIEWS) EXAMINATION: XR SPINE ENTIRE (2-3 VIEWS) CLINICAL HISTORY: Z01.818 Pre-op examination ICD10 COMPARISONS: None available. FINDINGS: There are no lytic or sclerotic bone lesions. There is no fracture or subluxation, there is no loss of vertebral body height. There is mild patient scoliosis of thoracic and lumbar spine. There is intervertebral disc space narrowing at every level and there appears to be grade 1 anterolisthesis of L4 and L5 with partial segmentation at L5-S1. The SI joints are symmetric. The prevertebral soft tissues are within normal limits. There are no radiopaque foreign bodies. IMPRESSION: There are no acute bony changes. There is mild S-shaped scoliosis of the thoracolumbar spine. Interpreted by: Yoel Hurley MD Signed by: Yoel Hurley MD 06/22/20 Final result Normal [facility] Provider Orderson 01-20-2018 Provider Orders [id number]#1.00OTGTIFF [facility] Intraoperative Noteon 2017 Intraoperative Note [id number]#1.00OTGTIFF [facility] Intraoperative Noteon 2017 Intraoperative Note [id number][facility]00[facility] 12-30-2017 Outside Records [id number]#1.00[facility] Lab - Other Lab Resultson Lab - Other Lab Results [id number]#1.00[facility] Coding Summaryon 12-17-2017 Coding Summary CODING DATE: 018 [facility] STATUS: Home PAYOR: Commercial Insurance ADMIT DX: REASON FOR VISIT DX: M17.11 Unilateral primary osteoarthritis, right knee FINAL DX: PRINCIPAL: M17.11 Unilateral primary osteoarthritis, right knee SECONDARY: I10 Essential (primary) hypertension E11.9 Type 2 diabetes mellitus without complications M54.9 Dorsalgia, unspecified G89.29 Other chronic pain PROCEDURES DOCTOR NAME DATE 06445 Arthroplasty, knee, condyle and Arpan Brock And 12/13/2017 plateau; medial AND lateral compartments with or without patella resurfacing (total knee arthroplasty) RT Right side (used to identify procedures performed on the right side of the body) [id number] Replacement of Right Knee Joint Arpan Brock And 12/13/2017 with Synthetic Substitute, Cemented, Open Approach NOTE: The code number assigned matches the documented diagnosis and / or procedure in the patient's chart. However, the narrative phrase printed from the coding software may appear abbreviated, or result in slightly different terminology. Coded By: Lisbet Swain Date Saved: 12/17/2017 11:16 am [facility] Pathology Sendout Teston Pathology Send Out. See Report [facility] Comment on above: Order Comment: RIGHT KNEE BONE Performed By: #### 1 [id number] ####[facility] (DEFAULT)[address] [place], [place] [address] Consent Formson 12-16-2017 Consent Forms [id number]#1.00[facility] Discharge Summaryon 12-17-19 18 Discharge Summary Result Type: Progres s Note-PhysicianResult Date: December 16, 2017 18:51 EDTResult Status: Auth (Verified)Result Title: Discharge Summary *Performed By: Arpan Brock DO on December 16, 2017 18:54 EDTVerified By: Arpan Brock DO on December 16, 2017 18:54 EDTEncounter Info: [id number], [facility], Observation, 12/13/17 - 12/15/17* Final Report *Discharge Summary *Patient: LILO REYES : 62 years Sex: FEMALE : 51Associated Diagnoses: NoneAuthor: Arpan Brock ReviewGeneral resultsToday's qbseimm55/02/18 05:25 EDT WBC 7.8 x103/mcL Hgb 10.7 gm/dL LOW Hct 33.8 %Results reviewLab cyqabvj65/02/18 05:25 EDT WBC 7.8 x103/mcL RBC 4.03 x106/mcL Hgb 10.7 gm/dL LOW Hct 33.8 % MCV 84 fL MCH 27 pg MCHC 32 gm/dL RDW 15.0 % Platelet 204 x103/mcL MPV 10.9 fL HI Auto Neut % 58 % Auto Lymph % 30 % Auto Pierce % 8 % Auto Eos % 2.6 % Auto Baso % 0.6 % Neut Abs# 4.5 x103/mcL Lymph Abs# 2.3 x103/mcL Pierce Abs# 0.6 x103/mcL Eos Abs# 0.2 x103/mcL Baso Abs# 0.0 x103/mcLHealth StatusAllergies:Allergic Reactions (Selected)Severity Not DocumentedAmoxicillin- Swelling.,Allergies (1) Active Reactionamoxicillin SwellingCurrent medications: (Selected)Documented MedicationsDocumentedCalcium 600+D 600 mg-200 intl units oral tablet: 1 tab(s), PO, Daily, 0 Refill(s)Metoprolol Tartrate 25 mg oral tablet: 25 mg, 1 tab(s), PO, BID, 180 tab(s), 0 Refill(s)Tylenol 325 mg oral capsule: 325 mg, 1 cap(s), PO, q4hr, PRN: as needed for pain, 20 cap(s), 0 Refill(s)celecoxib 200 mg oral capsule: 200 mg, 1 cap(s), PO, BID, 60 cap(s), 0 Refill(s)ferrous sulfate 325 mg (65 mg elemental iron) oral delayed release tablet: 325 mg, 1 tab(s), PO, Daily, 30 tab(s), 0 Refill(s)glucosamine 750 mg oral tablet: 1,500 mg, 2 tab(s), PO, Daily, 180 tab(s), 0 Refill(s)ibuprofen 200 mg oral tablet: 400 mg, 2 tab(s), PO, TID, 0 Refill(s),Home Medications (7) ActiveCalcium 600+D 600 mg-200 intl units oral tablet 1 tab(s), PO, Dailycelecoxib 200 mg oral capsule 200 mg = 1 cap(s), PO, BIDferrous sulfate 325 mg (65 mg elemental iron) oral delayed release tablet 325 mg = 1 tab(s), PO, Dailyglucosamine 750 mg oral tablet 1,500 mg = 2 tab(s), PO, Dailyibuprofen 200 mg oral tablet 400 mg = 2 tab(s), PO, TIDMetoprolol Tartrate 25 mg oral tablet 25 mg = 1 tab(s), PO, BIDTylenol 325 mg oral capsule 325 mg = 1 cap(s), PRN, PO, w0ikJgnrujv list (past medical history):Active Problems (2)DiabetesHypertension,Problem s (Active Problems Only)Hypertensive disorder (SNOMED CT: 8399818921, Onset: --)Diabetes mellitus (SNOMED CT: 513519844, Onset: --)HistoriesProcedure history:Tonsillectomy (006966874).Cholecystectomy (97150741).Hysterectomy and bilateral salpingo-oophorectomy sample (769132942).Vein of lower extremity (396373974).Comments:11/26/2017 11:21 - Rosina Goodwin RNstripping right legArthroscopy of knee (035686643).Comments:11/26/2017 11:22 - Rosina Goodwin RNkathyht knee l0Junndic cuff repair (295346263).Comments:11/26/2017 11:22 - Rosina Goodwin RNleftbladder.Comments: 8 11:24 - Christa Rosina RNsuspensionKnee replacement (669263424).Social HistorySocial & Psychosocial QpytbxRsaiuzn50/13/2018 Alcohol Use: Current Frequency: 1-2 times per rehkFlenirm87/13/2018 Smoking tobacco use: Never (less than 100 in l.Physical ExaminationVS/MeasurementsVital Signs12/15/17 08:25 EDT Temperature Oral 36.1 DegC Peripheral Pulse Rate 85 bpm Respiratory Rate 18 br/min Systolic Blood Pressure 118 mmHg Diastolic Blood Pressure 79 mmHg Mean Arterial Pressure, Cuff 92 mmHg (Modified) SpO2 96 % Oxygen Therapy Room air12/15/17 07:48 EDT Peripheral Pulse Rate 76 bpm Peripheral Pulse Rate 76 bpm Respiratory Rate 16 br/min Respiratory Rate 16 br/min12/15/17 01:30 EDT Temperature Oral 36.9 DegC Peripheral Pulse Rate 75 bpm Respiratory Rate 20 br/min Systolic Blood Pressure 133 mmHg Diastolic Blood Pressure 73 mmHg Mean Arterial Pressure, Cuff 93 mmHg SpO2 94 % Oxygen Therapy Room airHospital CourseHospital CourseAdmitted from: from home.Transferred via: by car.The patient came to the hospital for an elective total knee replacement. She underwent that surgery without complication. Postoperatively she received DVT prophylaxis and prophylactic IV antibiotics and parenteral analgesics.Her postoperative course was uneventful. On the second postoperative day the patient was doing well enough to go home. Her pain was controlled with oral medication and she was tolerating a regular diet. Arrangements were made for her to be discharged home and for physical therapy to visit her at homeDischarge PlanDischarge Summary PlanDischarge Status: improved.Discharge instructions given: to patient.Discharge disposition: discharge to home.DiagnosisOsteoarthritis knee.Signature Line[Electronically Signed on: 12/16/2017 18:54 EDT] Arpan Brock DO[Verified on: 12/16/2017 18:54 EDT] Arpan Brock DO[Electronically Signed on: 12/23/2017 07:51 EDT] David Frecnhly[Verified on: 12/23/2017 07:51 EDT] Analisa French [facility] Intraoperative Noteon 2017 Intraoperative Note [id number]#1.00[facility] Medication Managementon Medication Management [id number]#1.00[facility] Progress Note-Physicianon Progress Note-Physician Patient: LILO REYES : 62 years Sex: FEMALE : [birth year]Associated Diagnoses: NoneAuthor: Arpan Brock ReviewGeneral resultsToday's /02/18 05:25 EDT WBC 7.8 x103/mcL Hgb 10.7 gm/dL LOW Hct 33.8 %Results reviewLab pzafhjg58/02/18 05:25 EDT WBC 7.8 x103/mcL RBC 4.03 x106/mcL Hgb 10.7 gm/dL LOW Hct 33.8 % MCV 84 fL MCH 27 pg MCHC 32 gm/dL RDW 15.0 % Platelet 204 x103/mcL MPV 10.9 fL HI Auto Neut % 58 % Auto Lymph % 30 % Auto Pierce % 8 % Auto Eos % 2.6 % Auto Baso % 0.6 % Neut Abs# 4.5 x103/mcL Lymph Abs# 2.3 x103/mcL Pierce Abs# 0.6 x103/mcL Eos Abs# 0.2 x103/mcL Baso Abs# 0.0 x103/mcLHealth StatusAllergies:Allergic Reactions (Selected)Severity Not DocumentedAmoxicillin- Swelling.,Allergies (1) Active Reactionamoxicillin SwellingCurrent medications: (Selected)Documented MedicationsDocumentedCalcium 600+D 600 mg-200 intl units oral tablet: 1 tab(s), PO, Daily, 0 Refill(s)Metoprolol Tartrate 25 mg oral tablet: 25 mg, 1 tab(s), PO, BID, 180 tab(s), 0 Refill(s)Tylenol 325 mg oral capsule: 325 mg, 1 cap(s), PO, q4hr, PRN: as needed for pain, 20 cap(s), 0 Refill(s)celecoxib 200 mg oral capsule: 200 mg, 1 cap(s), PO, BID, 60 cap(s), 0 Refill(s)ferrous sulfate 325 mg (65 mg elemental iron) oral delayed release tablet: 325 mg, 1 tab(s), PO, Daily, 30 tab(s), 0 Refill(s)glucosamine 750 mg oral tablet: 1,500 mg, 2 tab(s), PO, Daily, 180 tab(s), 0 Refill(s)ibuprofen 200 mg oral tablet: 400 mg, 2 tab(s), PO, TID, 0 Refill(s),Home Medications (7) ActiveCalcium 600+D 600 mg-200 intl units oral tablet 1 tab(s), PO, Dailycelecoxib 200 mg oral capsule 200 mg = 1 cap(s), PO, BIDferrous sulfate 325 mg (65 mg elemental iron) oral delayed release tablet 325 mg = 1 tab(s), PO, Dailyglucosamine 750 mg oral tablet 1,500 mg = 2 tab(s), PO, Dailyibuprofen 200 mg oral tablet 400 mg = 2 tab(s), PO, TIDMetoprolol Tartrate 25 mg oral tablet 25 mg = 1 tab(s), PO, BIDTylenol 325 mg oral capsule 325 mg = 1 cap(s), PRN, PO, d7vzVkfrtrk list (past medical history):Active Problems (2)DiabetesHypertension,Problem s (Active Problems Only)Hypertensive disorder (SNOMED CT: 4489676008, Onset: --)Diabetes mellitus (SNOMED CT: 127385440, Onset: --)HistoriesProcedure history:Tonsillectomy (440633155).Cholecystectomy (42563458).Hysterectomy and bilateral salpingo-oophorectomy sample (065471302).Vein of lower extremity (733882276).Comments:11/26/2017 11:21 - Rosina Goodwin RNstripping right legArthroscopy of knee (073980076).Comments:11/26/2017 11:22 - Rosina Goodwin RNright knee g2Rblsmww cuff repair (743157540).Comments:11/26/2017 11:22 - Rosina Goodwin RNleftbladder.Comments: 8 11:24 - Rosina Goodwin RNsuspensionKnee replacement (613902129).Social HistorySocial & Psychosocial QstxqsEelefds27/13/2018 Alcohol Use: Current Frequency: 1-2 times per jfatJjmibix98/13/2018 Smoking tobacco use: Never (less than 100 in l.Physical ExaminationVS/MeasurementsVital Signs12/15/17 08:25 EDT Temperature Oral 36.1 DegC Peripheral Pulse Rate 85 bpm Respiratory Rate 18 br/min Systolic Blood Pressure 118 mmHg Diastolic Blood Pressure 79 mmHg Mean Arterial Pressure, Cuff 92 mmHg (Modified) SpO2 96 % Oxygen Therapy Room air12/15/17 07:48 EDT Peripheral Pulse Rate 76 bpm Peripheral Pulse Rate 76 bpm Respiratory Rate 16 br/min Respiratory Rate 16 br/min12/15/17 01:30 EDT Temperature Oral 36.9 DegC Peripheral Pulse Rate 75 bpm Respiratory Rate 20 br/min Systolic Blood Pressure 133 mmHg Diastolic Blood Pressure 73 mmHg Mean Arterial Pressure, Cuff 93 mmHg SpO2 94 % Oxygen Therapy Room airHospital CourseHospital CourseAdmitted from: from home.Transferred via: by car.The patient came to the hospital for an elective total knee replacement. She underwent that surgery without complication. Postoperatively she received DVT prophylaxis and prophylactic IV antibiotics and parenteral analgesics.Her postoperative course was uneventful. On the second postoperative day the patient was doing well enough to go home. Her pain was controlled with oral medication and she was tolerating a regular diet. Arrangements were made for her to be discharged home and for physical therapy to visit her at homeDischarge PlanDischarge Summary PlanDischarge Status: improved.Discharge instructions given: to patient.Discharge disposition: discharge to home.DiagnosisOsteoarthritis knee.[Electronically Signed on: 12/16/2017 18:54 EDT] Arpan Brock DO[Verified on: 12/16/2017 18:54 EDT] Arpan Brock DO [facility] Telemetry Stripson 8 Telemetry Strips [id number]#1.00OTGTIFF [facility] .Auto Diff 1on 12-15-2017 Auto Baso % 0.6 % Normal 0.2-2.0 [facility] Comment on above: Performed By: #### 1 [id number] ####[facility] (DEFAULT)[address] [place] [address] Auto Pierce % 8 % Normal 1-12 [facility] Comment on above: Performed By: #### 1 [id number] ####[facility] (DEFAULT)[address] [place] [address] Auto Neut % 58 % Normal 44-88 [facility] Comment on above: Performed By: #### 1 [id number] ####[facility] (DEFAULT)[address] [place] [address] Baso Abs# 0.0 x10 Normal 0.0-0.2 [facility] Comment on above: Performed By: #### 1 [id number] ####[facility] (DEFAULT)[address] [place] [address] Eos Abs# 0.2 x10 Normal 0.0-0.4 [facility] Comment on above: Performed By: #### 1 [id number] ####[facility] (DEFAULT)[address] [place] [address] Eosinophils/100 leukocytes 2.6 % Normal 0.9-4.0 [facility] Comment on above: Performed By: #### 1 [id number] ####[facility] (DEFAULT)[address] [place] [address] Lymphocytes 2.3 x10 Normal 1.3-2.9 [facility] Comment on above: Performed By: #### 1 [id number] ####[facility] (DEFAULT)[address] [place] [address] Lymphocytes/100 leukocytes 30 % Normal 14-48 [facility] Comment on above: Performed By: #### 1 [id number] ####[facility] (DEFAULT)[address] [place] [address] Pierce Abs# 0.6 x10 Normal 0.0-0.8 [facility] Comment on above: Performed By: #### 1 [id number] ####[facility] (DEFAULT)[address] [place] [address] Neut Abs# 4.5 x10 Normal 1.5-9.2 [facility] Comment on above: Performed By: #### 1 [id number] ####[facility] (DEFAULT)[address] [place] [address] CBC w/ Auto Diffon 8 Erythrocyte distribution width Auto Ratio (RBC) 15.0 % Normal 11.5-15.0 [facility] Comment on above: Performed By: #### 1 [id number] ####[facility] (DEFAULT)[address] [place] [address] Erythrocytes (RBC) 4.03 x10 Normal 3.70-5.30 [facility] Comment on above: Performed By: #### 1 [id number] ####[facility] (DEFAULT)[address] [place] [address] Hematocrit (HCT) 33.8 % Normal 33.7-40.4 [facility] Comment on above: Performed By: #### 1 [id number] ####[facility] (DEFAULT)[address] [place] [address] Hemoglobin mass conc (Bld) 10.7 g/dL Low 11.3-15.9 [facility] Comment on above: Performed By: #### 1 [id number] ####[facility] (DEFAULT)[address] [place] [address] Man Diff? Auto Normal [facility] Comment on above: Performed By: #### 1 [id number] ####[facility] (DEFAULT)[address] [place] [address] MCH 27 pg Normal 24-34 [facility] Comment on above: Performed By: #### 1 [id number] ####[facility] (DEFAULT)[address] [place] [address] MCHC mass conc (RBC) 32 g/dL Normal 26-37 [facility] Comment on above: Performed By: #### 1 [id number] ####[facility] (DEFAULT)[address] [place] [address] MCV 84 fL Normal 81-100 [facility] Comment on above: Performed By: #### 1 [id number] ####[facility] (DEFAULT)[address] [place] [address] Platelet mean volume (PMV) 10.9 fL High 6.3-10.2 [facility] Comment on above: Performed By: #### 1 [id number] ####[facility] (DEFAULT)[address] [place] [address] Platelets 204 x10 Normal 138-427 [facility] Comment on above: Performed By: #### 1 [id number] ####[facility] (DEFAULT)[address] [place] [address] WBC (Leukocytes) 7.8 x10 Invalid Interpretation Code [facility] Comment on above: Performed By: #### 1 [id number] ####[facility] (DEFAULT)[address] [place] [address] Education Noteon 12-15-2017 Education Note Education MaterialsOrthopedicsKnee Rehabilitation Guidelines Following SurgeryAfter knee surgery, it is important to follow instructions from your health care provider about uvkhr-sg-novert (ROM) and muscle strengthening exercises. This will improve your surgery results. If the exercises cause you to have pain or swelling in your knee joint, do them less often until you can do them without pain. Then, slowly increase how often you do your exercises. If you have problems or questions, talk with your health care provider or physical therapist. You should start exercising as soon as your health care provider or physical therapist says it is okay. Follow these instructions at home:Activity? Use your crutches or?walker as told by your health care provider.? Do notlift anything that is heavier than 10 lb (4.5 kg) and do not play contact sports until your health care provider says it is okay.? Return to your normal activities as told by your health care provider. Ask your health care provider what activities are safe for you.? Return to work as told by your health care provider.? Do notdrive a car for six weeks or as told by your health care provider.General instructions? Take jmnq-bcn-uobsqyw and prescription medicines only as told by your health care provider.? Protect your knee during the recovery period to keep it from getting injured again.? You may take sponge baths. Do not take showers or tub baths until your health care provider says it is okay.? Remove throw rugs and tripping hazards from the floor.? Wear elastic stockings for as long as your health care provider instructs you to.? Keep all follow-up visits as told by your health care provider. This is important.Range of motion and strengthening exercisesDo your exercises as told by your health care provider or physical therapist.Before you exercise? Put a towel between your thigh and a heat pack or heating pad.? Leave the heat on your thigh muscle for 20?30 minutes before you exercise.Leg liftsWhile your knee is still in a splint or a cast, you can do straight-leg raises. Repeat this exercise 10?20 times, 2?3 times per day. As your knee gets better, do this exercise against resistance.1. Lie flat on your back.2. Lift the leg about 6 inches. Keep it raised for 3 seconds.3. Slowly lower the leg.Quad setsRepeat this exercise 10?20 times every hour.1. Lie flat on your back.2. Tighten your thigh muscle (quad).3. Keep the muscle tight for 5?10 seconds.Hamstring setsRepeat this exercise 10?20 times every hour.1. Push your foot backward against an object that does not move.2. Keep pushing your foot against it for 5?10 seconds.Weight-resistance exercisesWeight-resistance exercises are another important part of rehabilitation. These exercises strengthen your muscles by making them work against resistance. Examples include using: ? Free weights.? Weight-lifting machines.? Resistance bands.Aerobic exercisesAerobic exercise keeps joints and muscles moving. It involves large muscle groups. It is also rhythmic in nature and is done for a longer period. Doing these exercises improves circulation and endurance. Your health care provider may have you start by taking a 20?30 minute walk, 2 times per day. Examples of aerobic exercise include: ? Swimming.? Walking.? Hiking.? Jogging.? Cross-country skiing.? Bike riding.This information is not intended to replace advice given to you by your health care provider. Make sure you discuss any questions you have with your health care provider.Document Released: 08/02/2006 Document Revised: 04/06/2017 Document Reviewed: 07/29/2015[employer] Interactive Patient Education ? 2017 [employer]. Normal [facility] Inpatient Clinical Summaryon 12-15-2017 Inpatient Clinical Summary [facility] 2SOUTHClinical Discharge SummaryPERSON INFORMATIONName LILO REYES Age 62 Years [birth year]Sex FEMALE Language Citizen Of [place] PCP Christy SOLARES Status Med Service ObservationN [id number] Acct# Arrival 12/13/17 05:44:49Visit Reason SURGERY - RIGHT TOTAL KNEE Acuity LOSAddress:[address] [address]Comment:PROVIDER INFORMATIONVITALS INFORMATIONVital Sign Triage LatestTemp Oral 37.1 DegC 36.1 DegCTemp Temporal 36.4 DegC 36.8 DegCTemp IntravascularTemp AxillaryTemp Almtqn88 Sat 96 % 96 %Respiratory Rate 18 br/min 18 br/minPeripheral Pulse Rate 65 bpm 85 bpmApical Heart RateBlood Pressure 140 mmHg / 86 mmHg 118 mmHg / 79 mmHgComment:MEDICAL INFORMATIONAllergy Info:Allergies amoxicillin (Swelling)Prescriptions Given:Home Meds Displayacetaminophen (Tylenol 325 mg oral capsule) 1 cap(s) ( 325 mg ), PO, q4hr, PRN: as needed for pain, # 20 cap(s), 0 Refill(s)calcium-vitamin D (Calcium 600+D 600 mg-200 intl units oral tablet) 1 tab(s), PO, Daily, 0 Refill(s)celecoxib (celecoxib 200 mg oral capsule) 1 cap(s) ( 200 mg ), PO, BID, # 60 cap(s), 0 Refill(s)ferrous sulfate (ferrous sulfate 325 mg (65 mg elemental iron) oral delayed release tablet) 1 tab(s) ( 325 mg ), PO, Daily, # 30 tab(s), 0 Refill(s)glucosamine (glucosamine 750 mg oral tablet) 2 tab(s) ( 1,500 mg ), PO, Daily, # 180 tab(s), 0 Refill(s)ibuprofen (ibuprofen 200 mg oral tablet) 2 tab(s) ( 400 mg ), PO, TID, 0 Refill(s)metoprolol (Metoprolol Tartrate 25 mg oral tablet) 1 tab(s) ( 25 mg ), PO, BID, # 180 tab(s), 0 Refill(s)Medication List:Continue These Medications:acetaminophen (Tylenol 325 mg oral capsule) 325 mg Oral Every 4 hours as needed for as needed for paincalcium-vitamin D (Calcium 600+D 600 mg-200 intl units oral tablet) 1 tab(s) Oral every daycelecoxib (celecoxib 200 mg oral capsule) 200 mg Oral 2 times a dayferrous sulfate (ferrous sulfate 325 mg (65 mg elemental iron) oral delayed release tablet) 325 mg Oral every dayglucosamine (glucosamine 750 mg oral tablet) 1,500 mg Oral every dayibuprofen (ibuprofen 200 mg oral tablet) 400 mg Oral 3 times a daymetoprolol (Metoprolol Tartrate 25 mg oral tablet) 25 mg Oral 2 times a dayDiscontinue These Medications:aspirin (aspirin 81 mg oral tablet) 81 mg Oral every dayacetaminophen (Tylenol 325 mg oral capsule) 1 cap Oral Every 4 hours as needed as needed for pain.calcium-vitamin D (Calcium 600+D 600 mg-200 intl units oral tablet) 1 tab(s) Oral every day.celecoxib (celecoxib 200 mg oral capsule) 1 cap Oral 2 times a day.ferrous sulfate (ferrous sulfate 325 mg (65 mg elemental iron) oral delayed release tablet) 1 tab(s) Oral every day.glucosamine (glucosamine 750 mg oral tablet) 2 tab(s) Oral every day.ibuprofen (ibuprofen 200 mg oral tablet) 2 tab(s) Oral 3 times a day.metoprolol (Metoprolol Tartrate 25 mg oral tablet) 1 tab(s) Oral 2 times a day.Comment:Lab and Radiology ResultsLaboratory or Other Results This Visit (last charted value for your 12/13/2017 visit) Hematology 12/15/2017 5:25 AM Hct: 33.8 % -- Normal range between ( 33.7 and 40.4 ) Hgb: 10.7 gm/dL -- Normal range between ( 11.3 and 15.9 ) MCH: 27 pg -- Normal range between ( 24 and 34 ) MCHC: 32 gm/dL -- Normal range between ( 26 and 37 ) MCV: 84 fL -- Normal range between ( 81 and 100 ) MPV: 10.9 fL -- Normal range between ( 6.3 and 10.2 ) Platelet: 204 x103/mcL -- Normal range between ( 138 and 427 ) RBC: 4.03 x106/mcL -- Normal range between ( 3.70 and 5.30 ) RDW: 15.0 % -- Normal range between ( 11.5 and 15.0 ) WBC: 7.8 x103/mcL -- Normal range between ( 3.5 and 10.5 ) Auto Eos %: 2.6 % -- Normal range between ( 0.9 and 4.0 ) Auto Lymph %: 30 % -- Normal range between ( 14 and 48 ) Auto Neut %: 58 % -- Normal range between ( 44 and 88 ) Eos Abs#: 0.2 x103/mcL -- Normal range between ( 0.0 and 0.4 ) Lymph Abs#: 2.3 x103/mcL -- Normal range between ( 1.3 and 2.9 ) Pierce Abs#: 0.6 x103/mcL -- Normal range between ( 0.0 and 0.8 ) Auto Baso %: 0.6 % -- Normal range between ( 0.2 and 2.0 ) Auto Pierce %: 8 % -- Normal range between ( 1 and 12 ) Baso Abs#: 0.0 x103/mcL -- Normal range between ( 0.0 and 0.2 ) Neut Abs#: 4.5 x103/mcL -- Normal range between ( 1.5 and 9.2 ) Urinalysis 12/13/2017 7:40 AM UA Blood: NEGATIVE UA Color: STRAW UA Glucose: NEGATIVE UA Ketones: NEGATIVE UA Leuk Est: NEGATIVE UA Nitrite: NEGATIVE UA Protein: NEGATIVE mg/dL UA Urobilinogen: 0.2 mg/dL -- Normal range between ( 0.2 and 1.0 ) UA pH: 5.5 -- Normal range between ( 5 and 8 ) UA Spec Grav: <=1.005 -- Normal range between ( 1.001 and 1.035 ) UA Clarity: CLEAR Micro?: Not Indicated Culture?: Not Indicated UA Bilirubin: NEGATIVE Urine Source: [facility] 12/12/2017 1:52 PM ABSC Gel Interp: Negative ABORh Interp: A POS Misc Lab Order 12/12/2017 1:52 PM Tube Collected: Yes Nursing Point of Care Testing 12/13/2017 6:26 AM Blood Glucose, Capillary. POC: 96 mg/dL -- Normal range between ( 60 and 150 ) Diagnostic Radiology 12/13/2017 10:10 AM XR Knee One or Two Views Right: XR Knee One or Two Views Right Radiology Report 12/13/2017 0:00 AM Radiology Report: Radiology ReportDIET & ACTIVITYPatient Activity Level:Patient Diet:RegularPatient Activity Restrictions:DISCHARGE INFORMATIONDischarge Disposition: HomeDischarge Location: HomeDEPART REASON INCOMPLETE INFORMATIONPATIENT EDUCATION INFORMATIONInstructions:Knee Rehabilitation Guidelines Following SurgeryFollow up:With: Address: When:Arpan Rubio[address], [address] [place] [address] Business (2) 12/23/2017 8:15 AMWith: Address: When:LEON SOLARES [address] [place] [address] Business (1)DIAGNOSISHypertension; Knee osteoarthritisPROBLEMSProblems Active Diabetes HypertensionComment:PHYS DOC NOTESPatient Understanding: Yes - Patient/family/caregiver verbalizes understanding of instructions given Normal [facility] Inpatient Patient Summaryon 12-15-2017 Inpatient Patient Summary [address] [id number] patient Discharge InstructionsName: CHACE REYES: 51 Address: [address] [place] [id number] Care Provider:Name: LEON SOLARESPhone: After you are discharged if you find you have any questions, please, call [phone] ext [phone] to speak to a nurse.Discharge Diagnosis: Hypertension; Knee osteoarthritisIf you received any narcotics, sedation, or any other medication that causes drowsiness for the next 24 hours, unless otherwise directed:? Do not drive a car.? Do not operate machinery such as power tools, lawn mowers, drills, sewing machines, or stoves? Avoid alcoholic beverages and drugs for allergies, nerves, or sleep? Do not make important personal or business decisions or sign any legal documentsBrecksville [facility] would like to thank you for allowing us to assist you with your healthcare needs. The following includes patient education materials and information regarding your injury/illness.LILO REYES has been given the following list of follow-up instructions, prescriptions, and patient education materials:Follow-up InstructionsWith: Address: When:Arpan Brock [address] [place] [address], [address] [place] [address] Business (2) 12/23/2017 8:15 AMWith: Address: When:LEON SOLARES [address] [place] [id number] Business (1)MedicationsDuring the course of your visit, your medication list was updated with the most current information. The details of those changes are reflected below:Medications to Continue That Have Not ChangedOther Medicationsacetaminophen (Tylenol 325 mg oral capsule) 1 cap Oral Every 4 hours as needed as needed for pain.calcium-vitamin D (Calcium 600+D 600 mg-200 intl units oral tablet) 1 tab(s) Oral every day.celecoxib (celecoxib 200 mg oral capsule) 1 cap Oral 2 times a day.ferrous sulfate (ferrous sulfate 325 mg (65 mg elemental iron) oral delayed release tablet) 1 tab(s) Oral every day.glucosamine (glucosamine 750 mg oral tablet) 2 tab(s) Oral every day.ibuprofen (ibuprofen 200 mg oral tablet) 2 tab(s) Oral 3 times a day.metoprolol (Metoprolol Tartrate 25 mg oral tablet) 1 tab(s) Oral 2 times a day.No Longer Take the Following Medicationsaspirin (aspirin 81 mg oral tablet) 1 tab(s) Oral every day.It is important to always keep an active list of medications available so that you can share with other providers and manage your medications appropriately. As an additional courtesy, we are also providing you with your final active medications list that you can keep with you.acetaminophen (Tylenol 325 mg oral capsule) 1 cap Oral Every 4 hours as needed as needed for pain.calcium-vitamin D (Calcium 600+D 600 mg-200 intl units oral tablet) 1 tab(s) Oral every day.celecoxib (celecoxib 200 mg oral capsule) 1 cap Oral 2 times a day.ferrous sulfate (ferrous sulfate 325 mg (65 mg elemental iron) oral delayed release tablet) 1 tab(s) Oral every day.glucosamine (glucosamine 750 mg oral tablet) 2 tab(s) Oral every day.ibuprofen (ibuprofen 200 mg oral tablet) 2 tab(s) Oral 3 times a day.metoprolol (Metoprolol Tartrate 25 mg oral tablet) 1 tab(s) Oral 2 times a day.Take only the medications listed above. Contact your doctor prior to taking any medications not on this list.Medication leaflets, if any, will display belowDiet & ActivityPatient Activity Level:Patient Diet: RegularPatient Activity Restrictions:Patient education materials, if any, will display belowKnee Rehabilitation Guidelines Following SurgeryAfter knee surgery, it is important to follow instructions from your health care provider about [id number] (ROM) and muscle strengthening exercises. This will improve your surgery results. If the exercises cause you to have pain or swelling in your knee joint, do them less often until you can do them without pain. Then, slowly increase how often you do your exercises. If you have problems or questions, talk with your health care provider or physical therapist. You should start exercising as soon as your health care provider or physical therapist says it is okay. Follow these instructions at home:Activity? Use your crutches or?walker as told by your health care provider.? Do notlift anything that is heavier than 10 lb (4.5 kg) and do not play contact sports until your health care provider says it is okay.? Return to your normal activities as told by your health care provider. Ask your health care provider what activities are safe for you.? Return to work as told by your health care provider.? Do notdrive a car for six weeks or as told by your health care provider.General instructions? Take hpqe-adm-pgngbtu and prescription medicines only as told by your health care provider.? Protect your knee during the recovery period to keep it from getting injured again.? You may take sponge baths. Do not take showers or tub baths until your health care provider says it is okay.? Remove throw rugs and tripping hazards from the floor.? Wear elastic stockings for as long as your health care provider instructs you to.? Keep all follow-up visits as told by your health care provider. This is important.Range of motion and strengthening exercisesDo your exercises as told by your health care provider or physical therapist.Before you exercise? Put a towel between your thigh and a heat pack or heating pad.? Leave the heat on your thigh muscle for 20?30 minutes before you exercise.Leg liftsWhile your knee is still in a splint or a cast, you can do straight-leg raises. Repeat this exercise 10?20 times, 2?3 times per day. As your knee gets better, do this exercise against resistance.1. Lie flat on your back.2. Lift the leg about 6 inches. Keep it raised for 3 seconds.3. Slowly lower the leg.Quad setsRepeat this exercise 10?20 times every hour.1. Lie flat on your back.2. Tighten your thigh muscle (quad).3. Keep the muscle tight for 5?10 seconds.Hamstring setsRepeat this exercise 10?20 times every hour.1. Push your foot backward against an object that does not move.2. Keep pushing your foot against it for 5?10 seconds.Weight-resistance exercisesWeight-resistance exercises are another important part of rehabilitation. These exercises strengthen your muscles by making them work against resistance. Examples include using: ? Free weights.? Weight-lifting machines.? Resistance bands.Aerobic exercisesAerobic exercise keeps joints and muscles moving. It involves large muscle groups. It is also rhythmic in nature and is done for a longer period. Doing these exercises improves circulation and endurance. Your health care provider may have you start by taking a 20?30 minute walk, 2 times per day. Examples of aerobic exercise include: ? Swimming.? Walking.? Hiking.? Jogging.? Cross-country skiing.? Bike riding.This information is not intended to replace advice given to you by your health care provider. Make sure you discuss any questions you have with your health care provider.Document Released: 08/02/2006 Document Revised: 04/06/2017 Document Reviewed: 07/29/2015[employer] Patient Education ? 2017 [employer].Viruses or BacteriaWhat?s got you sick?Antibiotics only treat bacterial infections. Viral illnesses cannot be treated with antibiotics. When an antibiotic is not prescribed, ask your healthcare professional for tips on how to relieve symptoms and feel better. Usual CauseIllness Viruses Bacteria Antibiotic NeededCold/Runny Nose NOBronchitis/Chest Cold (in otherwise healthy children and adults) NOWhooping Cough YesFlu NOStrep Throat YesSore Throat (except strep) NOFluid in the middle ear (otitis media with effusion) NOUrinary Tract Infection YesAntibiotics Aren?t Always the Answerwww.cdc.gov/getsmart GETSMARTKnow When Antibiotics [place]. Department of Health and Human ServicesCenters for Disease Control and Prevention April 2014 [facility] Progress Note-Physicianon Progress Note-Physician DATE OF ORTHOPEDIC PROGRESS NOTE: 12/15/17TIME: 8:35 amThe patient is up in her bedside chair eating her breakfast. She states shefeels much better today. She has been able to get up and ambulate with awalker. Her pain is under good control. She is urinating without difficulty.She denies numbness and tingling in the right lower extremity.PHYSICAL EXAMINATION: VITAL SIGNS: Today are stable. BP 118/79, heart rate85, respirations 18 and SpO2 is 96 on room air. Hemoglobin is 10.7,hematocrit of 33.8 and WBCs are 7.8. LOWER EXTREMITIES: The dressing waschanged on her right knee today. The wound is healing satisfactorily. Thereare no erythematous changes. No signs of sepsis. There is moderate swelling.Her Chicho's sign is negative but she does have some tenderness in the calf.She can get the knee to almost full extension and flexion to mukgaaoedsczd80-96 degrees.IMPRESSION: DAY #2 STATUS POST TOTAL RIGHT KNEE ARTHROPLASTY AND DOINGWELL.PLAN:1. She will be discharged today.2. She will follow up with Dr. Brock.3. She has been given discharge instructions.4. If there any issues or concerns she might have, she will contact 's office.JAZZMINE Johnson #: [id number]: 12/15/2017T: 12/15/2017[Electronically Signed on: 12/15/2017 13:44 EDT] CHRISTY ARDON DO[Verified on: 12/15/2017 13:44 EDT] CHRISTY ARDON DO[Transcribed on: 12/15/2017 10:24 EDT]GDU Normal [facility] .Auto Diff 1on 12-14-2017 Auto Baso % 0.0 % Low 0.2-2.0 [facility] Comment on above: Performed By: #### 7 [id number], [id number], [id number], [id number] ####[facility] (DEFAULT)[address] [place] [address] Auto Pierce % 8 % Normal 1-12 [facility] Comment on above: Performed By: #### 7 [id number], [id number], [id number], [id number] ####[facility] (DEFAULT)[address] [place] [address] Auto Neut % 76 % Normal 44-88 [facility] Comment on above: Performed By: #### 7 [id number], [id number], [id number], [id number] ####[facility] (DEFAULT)[address] [place] [address] Baso Abs# 0.0 x10 Normal 0.0-0.2 [facility] Comment on above: Performed By: #### 7 [id number], [id number], [id number], [id number] ####[facility] (DEFAULT)[address] [place] [address] Eos Abs# 0.0 x10 Normal 0.0-0.4 [facility] Comment on above: Performed By: #### 7 [id number], [id number], [id number], [id number] ####[facility] (DEFAULT)[address] [place] [address] Eosinophils/100 leukocytes 0.0 % Low 0.9-4.0 [facility] Comment on above: Performed By: #### 7 [id number], [id number], [id number], [id number] ####[facility] (DEFAULT)[address] [place] [address] Lymphocytes 1.5 x10 Normal 1.3-2.9 [facility] Comment on above: Performed By: #### 7 [id number], [id number], [id number], [id number] ####[facility] (DEFAULT)[address] [place] [address] Lymphocytes/100 leukocytes 16 % Normal 14-48 [facility] Comment on above: Performed By: #### 7 [id number], [id number], [id number], [id number] ####[facility] (DEFAULT)[address] [place] [address] Pierce Abs# 0.7 x10 Normal 0.0-0.8 [facility] Comment on above: Performed By: #### 7 [id number], [id number], [id number], [id number] ####[facility] (DEFAULT)[address] [place] [address] Neut Abs# 7.1 x10 Normal 1.5-9.2 [facility] Comment on above: Performed By: #### 7 527102, [id number], [id number], [id number] ####[facility] (DEFAULT)[address] [place] [address] CBC w/ Auto Diffon 8 Erythrocyte distribution width Auto Ratio (RBC) 14.6 % Normal 11.5-15.0 [facility] Comment on above: Performed By: #### 7 [id number], [id number], [id number], [id number] ####[facility] (DEFAULT)[address] [place] [address] Erythrocytes (RBC) 4.05 x10 Normal 3.70-5.30 [facility] Comment on above: Performed By: #### 7 [id number], [id number], [id number], [id number] ####[facility] (DEFAULT)[address] [place] [address] Hematocrit (HCT) 34.0 % Normal 33.7-40.4 [facility] Comment on above: Performed By: #### 7 [id number], [id number], [id number], [id number] ####[facility] (DEFAULT)[address] [place] [address] Hemoglobin mass conc (Bld) 10.6 g/dL Low 11.3-15.9 [facility] Comment on above: Performed By: #### 7 [id number], [id number], [id number], [id number] ####[facility] (DEFAULT)[address] [place] [address] Man Diff? Auto Normal [facility] Comment on above: Performed By: #### 7 [id number], [id number], [id number], [id number] ####[facility] (DEFAULT)[address] [place] [address] MCH 26 pg Normal 24-34 [facility] Comment on above: Performed By: #### 7 [id number], [id number], [id number], [id number] ####[facility] (DEFAULT)[address] [place] [address] MCHC mass conc (RBC) 31 g/dL Normal 26-37 [facility] Comment on above: Performed By: #### 7 [id number], [id number], [id number], [id number] ####[facility] (DEFAULT)[address] [place] [address] MCV 84 fL Normal 81-100 [facility] Comment on above: Performed By: #### 7 [id number], [id number], [id number], [id number] ####[facility] (DEFAULT)[address] [place] [address] [place] [address] Platelet mean volume (PMV) 11.0 fL High 6.3-10.2 [facility] Comment on above: Performed By: #### 7 [id number], [id number], [id number], [id number] ####[facility] (DEFAULT)[address] [place] [address] Platelets 217 x10 Normal 138-427 [facility] Comment on above: Performed By: #### 7 [id number], [id number], [id number], [id number] ####[facility] (DEFAULT)[address] [place] [address] WBC (Leukocytes) 9.3 x10 Invalid Interpretation Code [facility] Comment on above: Performed By: #### 7 [id number], [id number], [id number], [id number] ####[facility] (DEFAULT)[address] [place] [address] Consultation/Specialist Note on 12-14-2017 Consultation/Speci alist Note Patient: LILO REYES : 62 years Sex: FEMALE : 51Associated Diagnoses: Hypertension; Knee osteoarthritisAuthor: Juan Pablo DUBON, Og Garcia ComplaintMedical management requestedHistory of Present IllnessThis is a 62-year-old female I'm asked to see for medical management postoperatively after she had right knee replacement performed by Dr. Brock. She is a history of chronic back pain for which she has had injections in the pain clinic. She has a history of controlled hypertension. She has diet-controlled diabetes. Records from her primary care physician preoperatively for clearance are reviewed.At time of my assessment she is doing well postoperatively. She does have some back pain from lying in bed but she feels her knee pain is well controlled. Her blood pressure is actually on the low end of normal. She denies chest pain or dyspnea.Review of SystemsConstitutional: Fatigue, No fever, No chills.Eye: No recent visual problem.Respiratory: No shortness of breath, No cough.Cardiovascular: No chest pain.Gastrointestinal: No nausea, No abdominal pain.Genitourinary: No dysuria.Musculoskeletal: Back pain.Integumentary: No rash, No breakdown, No dryness.Neurologic: No headache.Health StatusAllergies:Allergic Reactions (All)Severity Not DocumentedAmoxicillin- Swelling.,Allergies (1) Active Reactionamoxicillin SwellingCurrent medications: (Selected)Inpatient MedicationsOrderedAmbien: 5 mg = 1 tab(s), Tab, PO, Once a day (at bedtime), PRN sleep, Routine, Start date 12/13/17 11:19:00 EDTColace: 100 mg = 1 cap(s), Cap, PO, BID, Routine, Start date 12/13/17 21:00:00 EDTDilaudid: 0.5 mg = 0.5 mL, Injection, IV Push, q4hr, PRN pain, Routine, Start date 12/13/17 11:19:00 EDTDulcolax suppository: 10 mg = 1 supp, Supp, NJ, Daily, PRN constipation, Routine, Start date 12/13/17 11:19:00 EDTFerrous Sulfate 325 mg (65 mg elemental iron) oral tablet: 325 mg 1 tab(s), Tab, PO, BID, Routine, Start date 12/13/17 21:00:00 EDTLR 1,000 mL: 1,000 mL, IV, Routine, Start date 12/13/17 11:19:00 EDT, 100 mL/hr, 10, hr, Total volume (mL): 1,000, 92.8 kgMultiple Vitamins oral tablet: 1 tab(s), Tab, PO, Daily, Routine, Start date 12/14/17 9:00:00 EDTNormal Saline Flush: 10 mL, Injection, IV Push, As Directed, PRN Other (see comment), Routine, Start date 12/13/17 11:19:00 EDTNormal Saline Flush: 3 mL, Injection, IV Push, As Directed, PRN Other (see comment), Routine, Start date 12/13/17 11:19:00 EDTToradol: 15 mg = 1 mL, Injection, IV Push, q6hr (int), Routine, Start date 12/13/17 18:00:00 EDTVistaril: 50 mg = 2 tab(s), Tab, PO, q3hr, PRN pain, Routine, Start date 12/13/17 11:19:00 EDTVitamin C: 500 mg = 1 tab(s), Tab, PO, BID, Routine, Start date 12/13/17 21:00:00 EDTVitamin D3: 2,000 International_Unit = 1 tab(s), Tab, PO, Daily, Routine, Start date 12/14/17 9:00:00 EDTZofran: 4 mg = 2 mL, Injection, IV Push, q6hr, PRN nausea/vomiting, Routine, Start date 12/13/17 11:19:00 EDTaspirin: 325 mg = 1 tab(s), Tab, PO, BID, Routine, Start date 12/13/17 21:00:00 EDTmorphine: 4 mg = 1 mL, Injection, IV Push, q2hr, PRN pain, Routine, Start date 12/13/17 11:19:00 EDTmorphine: 6 mg = 3 mL, Injection, IV Push, q2hr, PRN pain, Routine, Start date 12/13/17 11:19:00 EDToxyCODONE: 10 mg = 2 tab(s), Tab, PO, q4hr, PRN Pain - Severe, Routine, Start date 12/13/17 11:19:00 EDToxyCODONE: 5 mg = 1 tab(s), Tab, PO, q4hr, PRN Pain - Moderate, Routine, Start date 12/13/17 11:19:00 EDToyster shell 500 m mg 1 tab(s), Tab, PO, BID, Routine, Start date 12/13/17 21:00:00 EDTsodium chloride 0.9% inhalation solution: 3 mL, Soln, NEB, QID, Routine, Start date 12/13/17 12:00:00 EDT, 48 hr, Stop date 12/15/17 11:59:00 EDTDocumented MedicationsDocumentedCalcium 600+D 600 mg-200 intl units oral tablet: 1 tab(s), PO, Daily, 0 Refill(s)Metoprolol Tartrate 25 mg oral tablet: 1 tab(s) ( 25 mg ), PO, BID, # 180 tab(s), 0 Refill(s)Tylenol 325 mg oral capsule: 1 cap(s) ( 325 mg ), PO, q4hr, PRN: as needed for pain, # 20 cap(s), 0 Refill(s)celecoxib 200 mg oral capsule: 1 cap(s) ( 200 mg ), PO, BID, # 60 cap(s), 0 Refill(s)ferrous sulfate 325 mg (65 mg elemental iron) oral delayed release tablet: 1 tab(s) ( 325 mg ), PO, Daily, # 30 tab(s), 0 Refill(s)glucosamine 750 mg oral tablet: 2 tab(s) ( 1,500 mg ), PO, Daily, # 180 tab(s), 0 Refill(s)ibuprofen 200 mg oral tablet: 2 tab(s) ( 400 mg ), PO, TID, 0 Refill(s),Medications (21) ActiveScheduled: (9)ascorbic acid 500 mg Tab [MAGR] 500 mg 1 tab(s), PO, BIDaspirin 325 mg Tab [MAGR] 325 mg 1 tab(s), PO, BIDcalcium 500 mg Tab (Oyster shell) [MAGR] 500 mg 1 tab(s), PO, BIDcholecalciferol 2000 intl units Tab [MAGR] 2,000 International_Unit 1 tab(s), PO, Dailydocusate sodium 100 mg Cap [MAGR] 100 mg 1 cap(s), PO, BIDferrous sulfate 325 mg Tab [MAGR] 325 mg 1 tab(s), PO, BIDketorolac 15 mg/mL Inj [MAGR] 15 mg 1 mL, IV Push, q6hr (int)Multiple Vitamins Tab [MAGR] 1 tab(s), PO, Dailysodium chloride 0.9% INHALATION Karyn 3 mL [MAGR] 3 mL, NEB, QIDContinuous: (1)Lactated Ringers Injection intravenous solution 1,000 mL 1,000 mL, IV, 100 mL/hrPRN: (11)bisacodyl 10 mg Supp [MAGR] 10 mg 1 supp, [place], DailyHYDROmorphone 0.5 mg/0.5 mL Inj [MAGR] 0.5 mg 0.5 mL, IV Push, s7lxevifLCMtghc hydrochloride 25 mg Tab [MAGR] 50 mg 2 tab(s), PO, j5fodbplmwwn 2 mg/mL Inj [MAGR] 6 mg 3 mL, IV Push, n2qutgtsdgrq 4 mg/mL Inj [MAGR] 4 mg 1 mL, IV Push, d5tcuwsqgfrqrmy 2 mg/mL Inj [MAGR] 4 mg 2 mL, IV Push, u8jyosjmengma 5 mg Tab [MAGR] 5 mg 1 tab(s), PO, r7svbimjicrnb 5 mg Tab [MAGR] 10 mg 2 tab(s), PO, p5mqXhcsbs Chloride 0.9% FLUSH [MAGR] 3 mL, IV Push, As DirectedSodium Chloride 0.9% FLUSH [MAGR] 10 mL, IV Push, As Directedzolpidem 5 mg Tab [MAGR] 5 mg 1 tab(s), PO, Once a day (at bedtime)Problem list (past medical history):All ProblemsDiabetes / SNOMED CT 318813019 / ConfirmedHypertension / SNOMED CT 9912774700 / ConfirmedCanceled: Alteration in comfort: pain / SNOMED CT 50460751,Active Problems (2)DiabetesHypertensionHistorie sFamily History:CancerMotherDiabetes mellitus type IIMotherFatherSisterCA - Lung cancerFatherHeart diseaseSisterMotherFatherCongen ital heart diseaseSisterCOPDMotherFatherHi gh blood pressureMotherFatherSisterTIAMo therTobacco userMotherFatherSisterGERD - Gastro-esophageal reflux diseaseMotherFatherSisterProced ure history:Tonsillectomy (499727717).Cholecystectomy (14365310).Hysterectomy and bilateral salpingo-oophorectomy sample (028772736).Vein of lower extremity (662056762).Comments:11/26/2017 11:21 - Rosina Goodwin RNstripping right legArthroscopy of knee ([id number]).Comments:11/26/2017 11:22 - Rosina Goodwin RNkathyht knee x4Tyokixg cuff repair ([id number]).Comments:11/26/2017 11:22 - Rosina Goodwin RNleftbladder.Comments: 8 11:24 - Rosina Goodwin RNsuspensionKnee replacement (560419242).Social HistorySocial & Psychosocial StdlouLnqkthz10/13/2018 Alcohol Use: Current Frequency: 1-2 times per losjWlmkzhb55/13/2018 Smoking tobacco use: Never (less than 100 in l.Physical ExaminationVS/MeasurementsVital Signs (last 24 hrs) Last ChartedTemp Oral 37.1 DegC (DECEMBER 14 02:00)Heart Rate Peripheral 78 bpm (DECEMBER 14 07:10)Resp Rate 18 br/min (DECEMBER 14 07:10)SBP 108 mmHg (DECEMBER 14:00)DBP L 53 mmHg (DECEMBER 14 02:00)SpO2 94 % (DECEMBER 14:00)General-appears well, vitals are as documented.HEENT-normocephalic, hearing is grossly normal, pharynx unremarkable, neck supple, thyroid not palpable. Ophthalmologic exam-conjunctiva normal without redness or icterus and extraocular movements are normal. Cardiovascular-peripheral pulses are palpable and symmetric, S1S2, no murmurs, no carotid or abdominal bruits.There is no significant edema. Extremities-no calf tenderness. Respiratory-chest clear throughout with good air entry, no crepitus or wheezing, no cough or increased respiratory effort.Abdomen-no organomegaly, no masses, bowel sounds present, no tenderness or hernias.Psychiatric- mood and affect appropriateReview / ManagementABORh Interp: A POS (12/12/17) ABSC Gel Interp: Negative (12/12/17)Auto Baso %: 0 % Low (12/14/17) Auto Eos %: 0 % Low (12/14/17)Auto Lymph %: 16 % (12/14/17) Auto Pierce %: 8 % (12/14/17)Auto Neut %: 76 % (12/14/17) Baso Abs#: 0 x103/mcL (12/14/17)Blood Glucose, Capillary. POC: 96 mg/dL (12/13/17) Culture?: Not Indicated (12/13/17)Eos Abs#: 0 x103/mcL (12/14/17) Hct: 34 % (12/14/17)Hgb: 10.6 gm/dL Low (12/14/17) Lymph Abs#: 1.5 x103/mcL (12/14/17)MCH: 26 pg (12/14/17) MCHC: 31 gm/dL (12/14/17)MCV: 84 fL (12/14/17) Micro?: Not Indicated (12/13/17)Pierce Abs#: 0.7 x103/mcL (12/14/17) MPV: 11 fL High (12/14/17)Neut Abs#: 7.1 x103/mcL (12/14/17) Platelet: 217 x103/mcL (12/14/17)RBC: 4.05 x106/mcL (12/14/17) RDW: 14.6 % (12/14/17)Tube Collected: Yes (12/12/17) UA Bilirubin: NEGATIVE-Clin (12/13/17)UA Blood: NEGATIVE-Clin (12/13/17) UA Clarity: CLEAR-Clin (12/13/17)UA Color: STRAW (12/13/17) UA Glucose: NEGATIVE-Clin (12/13/17)UA Ketones: NEGATIVE-Clin (12/13/17) UA Leuk Est: NEGATIVE-Clin (12/13/17)UA Nitrite: NEGATIVE-Clin (12/13/17) UA pH: 5.5 (12/13/17)UA Protein: NEGATIVE-Clin (12/13/17) UA Spec Grav: <=1.005 (12/13/17)UA Urobilinogen: 0.2 (12/13/17) Urine Source: Morfin Catheter (12/13/17)WBC: 9.3 x103/mcL (12/14/17)Impression and PlanDiagnosisHypertension (IZH45-QD I10).Knee osteoarthritis (BEL57-HM M17.10).Course: Presently doing well postoperatively. Blood pressure controlled.Ashu continue to monitor from a medical perspective. Does not require any intervention at present is her only real medical issue is well-controlled hypertension. Would not yet restart antihypertensive therapy until blood pressure improves further.[Electronically Signed on: 12/14/2017 11:13 EDT] Og Almeida MD[Verified on: 12/14/2017 11:13 EDT] Og Almeida MD [facility] MAGR Intraoperative Recordon 12-14-2017 MAGR Intraoperative Record MAGR Intra-Op Record Summary Primary Physician: Arpan Brock DO Finalized Date/Time: 12/14/17 12:25:00 Pt. Name: LILO REYES/Sex: 1955 FEMALE Med Rec #: [id number] Physician: Arpan Brock DO Financial #: [id number] Pt. Type: O Room/Bed: [facility] [place] Admit/Disch: 12/13/17 05:44:00 - Institution: Case Times MAGR Entry 1 Patient In Room Time 12/13/17 07:43:00 Out Room Time 12/13/17 09:45:00 Anesthesia Start Time 12/13/17 07:43:00 Stop Time 12/13/17 09:50:00 Surgery Start Time 12/13/17 08:18:00 Stop Time 12/13/17 09:40:00 Last Modified By: Stacy Lucero RN 12/13/17 10:47:00 Case Attendance MAGR Entry 1 Entry 2 Entry 3 Case Attendee Arpan Brock Liberty G Sauer, Stephanie RN Andrew DO Role Performed Surgeon - Primary Scrub Personnel Compound Machine Operator Time In 12/13/17 07:43:00 12/13/17 07:43:00 12/13/17 07:43:00 Time Out 12/13/17 09:45:00 12/13/17 09:45:00 12/13/17 09:45:00 Procedure Arthroplasty Knee Arthroplasty Knee Arthroplasty Knee Total(Right) Total(Right) Total(Right) Last Modified By: Stacy Lucero RN, Stephanie RN Sauer, Stephanie RN 12/13/17 10:47:05 12/13/17 10:47:05 12/13/17 10:47:05 Entry 4 Entry 5 Entry 6 Case Attendee Larissa Newsome CSFA/COMPUTER SCIENCE PROFESSOR, TERI Marco Antonio-Aly, Mariella COMPUTER SCIENCE PROFESSOR Role Performed Compound Machine Operator Ball Sorter Ball Sorter Time In 12/13/17 07:43:00 12/13/17 07:43:00 12/13/17 07:43:00 Time Out 12/13/17 09:45:00 12/13/17 09:45:00 12/13/17 09:45:00 Procedure Arthroplasty Knee Arthroplasty Knee Arthroplasty Knee Total(Right) Total(Right) Total(Right) Last Modified By: Stacy Lucero RN, Stephanie RN Sauer, Stephanie RN 12/13/17 10:47:05 12/13/17 10:47:05 12/13/17 10:47:05 General Comments: CHILO EDWARDMER REP Surgical Procedures MAGR Pre-Care Text: A.20 Verifies operative procedure, surgical site, and laterality Im.150 Develops individualized plan of care Entry 1 Procedure Arthroplasty Knee Total Primary Procedure Yes Primary Surgeon Arpan Brock Right Sher DO Surgeon Comment right total knee Start 12/13/17 08:18:00 Stop 12/13/17 09:40:00 Anesthesia Type General Surgical Service Orthopedics Wound Class Clean Last Modified By: Stacy Lucero RN 12/13/17 10:47:10 Post-Care Text: O.730 The patient's care is consistent with the individualized perioperative plan of care General Case Data MAGR Pre-Care Text: A.350.1 Classifies surgical wound Entry 1 Case Information OR MAGR OR 01 Case Level Level 5 Wound Class Clean Specialty Orthopedics ASA Class 2 Diagnosis Preop Diagnosis OSTEOARTHRITIS RIGHT Postop Same As Preop Yes TOTAL KNEE Postop Diagnosis OSTEOARTHRITIS RIGHT TOTAL KNEE Last Modified By: Stacy Lucero RN 12/13/17 10:47:14 Post-Care Text: O.760 Patient receives consistent and comparable care regardless of the setting Time Out MAGR Entry 1 Time out date/time 12/13/17 08:13:00 All team members Yes have introduced themselves by name and role Surgeon, Yes Surgeon reviews Yes anesthesia, nurse critical or confirm patient, unexpected steps, site, procedure operative duration, anticipated blood loss Anesthesia team Yes Nursing team Yes reviews any reviews sterility patient-specific (including concerns indicator results) and equipment issues/concerns Antibiotic Antibiotic Yes prophylaxis given within the last 60 minutes Is essential N/A imaging displayed? Last Modified By: Stacy Lucero RN 12/13/17 08:14:08 Patient Positioning MAGR Pre-Care Text: A.280 Identifies baseline musculoskeletal status Im.40 Positions the patient Im.80 Applies safety devices Entry 1 Procedure Arthroplasty Knee Body Position Lateral Total(Right) Left Arm Position Extended on padded arm Right Arm Position Extended board Left Leg Position Extended Right Leg Position Extended Feet Uncrossed? Yes Press Points Checked Yes Positioning Device Arm Boards, Arm Strap, Outcome Met (O.80) Yes Pillow, Peg Board Last Modified By: Stacy Lucero RN 12/13/17 07:31:02 Post-Care Text: E.290 Evaluates musculoskeletal status O.80 Patient is free from signs and symptoms of injury related to positioning Skin Prep MAGR Pre-Care Text: A.30 Verifies allergies Im.270 Performs skin preparation Im.270.1 Implements protective measures to prevent skin and tissue injury due to chemical sources Entry 1 Skin Prep Syntegrity Prep Agents (Im.270) Chlorhexidine Gluconate Prep By Stacy Lucero RN and Alcohol Prep Area (Im.270) Knee Prep Area Details Right Skin Prep Agent Dry Yes Without Pooling Hair Removal Syntegrity Hair Removal Methods No hair removal performed Outcome Met (O.100) Yes Last Modified By: Stacy Lucero RN 12/13/17 07:31:55 Post-Care Text: E.10 Evaluates for signs and symptoms of physical injury to skin and tissue O.100 Patient is free from signs and symptoms of chemical injury Counts Verification MAGR Pre-Care Text: A.20 Verifies operative procedure, surgical site, and laterality A.20.2 Assesses the risk for unintended retained foreign body Im.20 Performs required counts Entry 1 Procedure Arthroplasty Knee Total(Right) Counts Verification Initial Counts Items included in Sponges, Sharps Initial Counts Manual the Initial Count Method Initial Counts Willa Mccartney, Initial Count Time 12/13/17 07:11:00 Performed By Larissa Newsome Counts Verification Final Counts Items Included in Sponges, Sharps Final Count Method Manual Final Count Final Count Status Correct Final Counts Willa Mccartney, Performed By Larissa Newsome Final Count Time 12/13/17 09:36:00 Surgeon notified of Yes final counts status Outcome Met (O.20) Yes Last Modified By: Stacy Lucero RN 12/13/17 09:36:17 Post-Care Text: E.50 Evaluates results of the surgical count O.20 Patient is free from unintended retained foreign objects Patient Care Devices MAGR Pre-Care Text: A.200 Assesses risk for normothermia regulation A.40 Verifies presence of prosthetics or corrective devices Im.280 Implements thermoregulation measures Im.60 Uses supplies and equipment within safe parameters Entry 1 Entry 2 Equipment Type FLOWTRON FOOT CUFF REG FORCED WARM AIR UNIT Serial ?# [id number] Equipment Setting PLACED ON NON OPERATIVE 43 DEGREES LEG, FACTORY DEFAULT SETTINGS Last Modified By: Stacy Lucero RN, Stephanie RN 12/13/17 08:14:17 12/13/17 08:22:44 Post-Care Text: E.10 Evaluates signs and symptoms of physical injury to skin and tissue O.700 Patient is free from signs and symptoms of injury caused by extraneous objects Tourniquet MAGR Pre-Care Text: A.240 Assesses baseline skin condition Im.120 Implements protective measures to prevent skin or tissue injury due to mechanical sources Entry 1 Tourniquet Type TOURNIQUET Cuff Size 86.3 cm Serial Number [id number] Setting 350 mmHg Placement Leg upper Padding (Im.120) Yes Placement Details Right Tourniquet Times Inflated 12/13/17 08:15:00 Deflated 12/13/17 09:39:00 Total Time 84 Applied By Arpan Brock Removed By Arpan Brock DO Outcome Met (O.60) Yes Last Modified By: Stacy Lucero RN 12/13/17 10:50:14 Post-Care Text: E.10 Evaluates for signs and symptoms of physical injury to skin and tissue O.60 Patient is free from sign and symptoms of injury caused by extraneous objects Cautery MAGR Pre-Care Text: A.240 Assesses baseline skin condition A.40 Verifies presence of prosthetics or corrective devices Im.50 Implements protective measures to prevent injury due to electrical sources Entry 1 ESU Type Electrosurgical Unit Identification [id number] Number ESU Settings Syntegrity Cut Setting 75 Coag Setting 75 Grounding Pad Details Grounding Pad Yes Verified By Stacy Lucero RN Needed? Grounding Pad Site Table Grounding Pad Within Expiration Yes Date? Outcome Met (O.10) Yes Last Modified By: Stacy Lucero RN 12/13/17 08:59:21 Post-Care Text: E.10 Evaluates for signs and symptoms of physical injury to skin and tissue O.10 Patient is free from signs and symptoms of injury related to thermal sources Catheters, Drains & Tubes MAGR Pre-Care Text: A.310 Identifies factors associated with an increased risk for hemorrhage or fluid and electrolyte imbalance Im.250 Administers care to invasive device sites Entry 1 Device Description MORFIN METER TRAY Device Type Urethral Present on Arrival? No Inserted By Larissa Newsome Inserted Date/Time 12/13/17 08:05:00 DC'd at End of Case? No Drainage Details Urinary Catheter Hand Hygiene Performed Outcome Met (O.60) Yes Checklist Before and After Insertion, Aseptic Technique and Sterile Equipment Used, Perineal Area Cleansed Before Insertion, Catheter Properly Secured, Collection Bag Positioned Below Bladder Last Modified By: Stacy Lucero RN 12/13/17 09:00:26 Post-Care Text: E.340 Evaluates tubes and drains are intact and functioning as planned O.60 Patient is free from signs and symptoms of injury caused by extraneous objects Cultures and Specimens MAGR Pre-Care Text: A.350 Assesses susceptibility for infection A.10 Confirms patient identity Im.320 Manages culture specimen collection Im.330 Manages specimen handling and disposition Entry 1 Cultures Ordered No Specimens Ordered Yes Outcome Met (O.40) Yes Last Modified By: Stacy Lucero RN 12/13/17 09:02:06 Post-Care Text: E.40 Evaluates correct processes have been performed for specimen handling and disposition O.40 Patient's specimen(s) is managed in the appropriate manner Medication Administration MAGR Pre-Care Text: A.210 Identifies physiological status Im.220 Administers prescribed medications Entry 1 Entry 2 Time Administered 12/13/17 09:02:00 12/13/17 09:25:00 Medication EXPAREL BACTRACIN Route of Admin SubQ TOP Dose Volume 50 mL By Arpan Brock James Andrew DO Andrew DO Outcome Met (O.130) Yes Yes Last Modified By: Stacy Lucero RN, Stephanie RN 12/13/17 09:03:08 12/13/17 09:03:08 Post-Care Text: E.20 Evaluates response to medications O.130 Patient receives appropriately administered medication(s) Implant Log MAGR Pre-Care Text: A.20 Verifies operative procedure, surgical site, and laterality Im.350 Records implants inserted during the operative or invasive procedure Entry 1 Entry 2 Entry 3 Implant/Explant Explant Explant Explant Implant Identification Description MARIA L 48MM HEADED SCREW MARIA L 6.5MM SELF MARIA L 6.5MM SELF TAPPING SCREW TAPPING SCREW Serial Number REF REF REF Lot Number [id number] Water Conservationist MARIA L MARIA L MARIA L Catalog # Size 48MM 6.5 X 30MM 6.5 X 30MM Expiration Date 12/14/27 09/15/27 05/15/27 Usage Data Implant Site RIGHT KNEE RIGHT KNEE RIGHT KNEE Quantity 2 1 1 Outcome Met (O.30) Yes Yes Yes Last Modified By: Stacy Lucero RN, Stephanie RN Sauer, Stephanie RN 12/13/17 09:28:24 12/13/17 09:28:24 12/13/17 09:28:24 Entry 4 Entry 5 Entry 6 Implant/Explant Implant Implant Implant Implant Identification Description MARIA L FEMUR CEMENTED MARIA L ARTICULAR SURFACE MARIA L TAPERED STEM Serial Number [id number] Lot Number [id number] Water Conservationist MARIA L MARIA L MARIA L Catalog # Size RIGHT SIZE 6 RIGHT 10MM 14 MM Expiration Date 07/15/27 12/13/24 12/14/27 Usage Data Implant Site RIGHT KNEE RIGHT KNEE RIGHT KNEE Quantity 1 1 1 Outcome Met (O.30) Yes Yes Yes Last Modified By: Stacy Lucero RN, Stephanie RN Sauer, Stephanie RN 12/13/17 09:35:41 12/13/17 09:35:41 12/13/17 14:19:23 Entry 7 Entry 8 Entry 9 Implant/Explant Implant Implant Implant Implant Identification Description MARIA L NATURAL TIBIA PALACOS BONE CEMENT MARIA L PATELLA CEMENTED Serial Number [id number] REF [id number] Lot Number [id number] Water Conservationist MARIA L MARIA L MARIA L Catalog # Size 5 DEGREE 32MM Expiration Date 05/15/27 08/15/22 12/13/24 Usage Data Implant Site RIGHT KNEE RIGHT KNEE RIGHT KNEE Quantity 1 2 1 Outcome Met (O.30) Yes Yes Yes Last Modified By: Stacy Lucero RN, Stephanie RN Sauer, Stephanie RN 12/13/17 11:06:19 12/13/17 14:11:15 12/13/17 14:16:37 Post-Care Text: E.30 Evaluates verification process for correct patient, site, side and level surgery O.30 Patient's procedure is performed on the correct site, side, and level Dressing/Packing MAGR Pre-Care Text: A.350 Assesses susceptibility for infection Im.290 Administer care to wound sites Entry 1 Skin Prep Agent Yes Site Knee Removed Prior to Dressing? Site Details Right Wound closure Primary Dressing Item Details Dressing Item 4x4's, ABD Tape (Im.290) Elastic Sports Bandage (Im.290) Outcome Met Yes Last Modified By: Stacy Lucero RN 12/13/17 09:05:07 Post-Care Text: E.200 Evaluates progress of wound healing O.200 Patient's wound perfusion is consistent with or improved from baseline levels Departure from OR MAGR Entry 1 Present on Depart Oxygen Via Stretcher Post-op Destination PACU Skin DFO Condition Dry Description Condition Intact Description Report Given To Liliana Ramsey RN Airway Maintenance Patient Status Stable Oxygen in Use? Yes Airway Device Simple mask Flow Rate 15 L/min Last Modified By: Stacy Lucero RN 12/13/17 09:04:47 Case Comments Finalized By: Arina Guevara RN Document Signatures Signed By: Arina Guevara RN 12/14/17 12:25 [facility] Pharmacy Noteon 12-14-2017 Pharmacy Note The patient was admi tted to have total right knee replacement. I reviewed the newly added pain medications for intolerance and none were noted. 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 Reminded to use a stool softener or Mirilax at home if continue to use pain medication. We reviewed that she currently not on her metoprolol that she was taking at home and to check with her physician before starting since her BP has been running low.I informed the patient of the opportunity to obtain her medications from our retail pharmacy at discharge if desired. I left contact information and a blank copy of a personal medication record for her use.[Electronically Signed on: 12/14/2017 13:00 EDT] Tomi Schwartz RPh[Verified on: 12/14/2017 13:00 EDT] Tomi Schwartz RPh [facility] Progress Note - Nurseon 05-0 Progress Note - Nurse Times 3 max assist to transfer pt. from bed to chair.[Electronically Signed on: 12/14/2017 11:21 EDT] Carlos Alba RN[Verified on: 12/14/2017 11:21 EDT] Carlos Albave note was put in on incorrect pt.[Electronically Signed on: 12/14/2017 15:18 EDT] Ludivina Koehler RN [facility] Progress Note - Nurse Dressing to right hip dry and intact. Pt. reports #8 right hip and left thigh pain. No grimacing or moaning noted. Pt. talking in a calm pleasant manner. Large amt of bruising and edema noted to left upper leg, knee, and lower leg below knee. Large blister to left inner thigh remains intact, open to air, and no change in size from yesterday. Ice in place to right hip, foot pumps, and garcia hose in place. Pt reports pain is under control with the oxycodone.[Electronically Signed on: 12/14/2017 11:19 EDT] Carlos Alba RN[Verified on: 12/14/2017 11:19 EDT] Carlos Alba note was charted on wrong patient, note was put in on correct pt.[Electronically Signed on: 12/14/2017 15:17 EDT] Ludivina Koehler RN [facility] Progress Note - Nurse IV converted to a ALVARO. Navjot d/c d wo complications.Times 1 assist to transfer pt. from bed to chair. Pt. had a steady gait. Pt. able to stand from bed per self. Polar care, teds, in place. Pt. very talkative and friendly. Dressing to right knee dry and intact.[Electronically Signed on: 12/14/2017 11:01 EDT] Carlos Alba RN[Verified on: 12/14/2017 11:01 EDT] Carlos Alba RN [facility] Progress Note - Nurse Pt. begs to keep catheter inplace until tomorrow. Informed pt. I will ask Dr. Ardon when he comes in.[Electronically Signed on: 12/14/2017 11:20 EDT] Carlos Alba RN[Verified on: 12/14/2017 11:20 EDT] Carlos Alba RNerror, note put in on wrong pt.[Electronically Signed on: 12/16/2017 14:23 EDT] Carlos Alba RN [facility] Progress Note-Physicianon Progress Note-Physician 12/14/2017 11:12 amThe patient is up sitting at her bedside. She just finished with therapy.She states her pain is about 6 or 7. At rest it is less intense. She deniesnumbness and tingling to the right lower extremity. She had her Foleyremoved early this morning and has not urinated yet. She is passing flatus.She denies nausea or vomiting. Her vital signs are stable. Her hemoglobinis 10.6, hematocrit 34, WBC is 9.3. Blood pressure this morning was 108/53,more recent heart rate was 70, respirations 20, SPO2 was 94 on room air.Examination of her right lower extremity reveals her surgical dressing isclean, dry and intact. She has good dorsi and plantar flexion of her rightfoot and ankle. There is really no calf tenderness. At this time thepatient is day 1 status post total right knee arthroplasty and makingsatisfactory progress. We informed her she has multiple pain medicationsordered and that she should request these as necessary until her pain isrelieved. She is anticipating going home tomorrow. Prognosis overall isgood.JAZZMINE Johnson #: [id number]: 12/14/2017T: 12/14/2017[Electronically Signed on: 12/15/2017 08:13 EDT] CHRISTY ARDON DO[Verified on: 12/15/2017 08:13 EDT] HALIE CHRISTY DO[Transcribed on: 12/14/2017 11:29 EDT]U [facility] Anesthesia Noteon 12-13-2017 Anesthesia Note Patient: OMEGA ERYES : 62 years Sex: FEMALE : [birth year]Associated Diagnoses: NoneAuthor: Alexis Valencia MDPostoperative InformationPost Operative Note: Operative Day.Anesthetic utilized: General.Health StatusAllergies:Allergic Reactions (All)Severity Not DocumentedAmoxicillin- Swelling.Problem list (past medical history):All ProblemsDiabetes / SNOMED CT 750186796 / ConfirmedHypertension / SNOMED CT 4675888315 / ConfirmedPhysical ExaminationVS/MeasurementsVital Signs (last 24 hrs) Last ChartedHeart Rate Peripheral 70 bpm (DEC 13 07:40)Resp Rate 18 br/min (DEC 13 10:00)SBP H 145 mmHg (DEC 13 10:00)DBP 69 mmHg (DEC 13 10:00)SpO2 99 % (DEC 13:)Review / ManagementCondition: Stable.Pt denies any pain. Resting comfortably in PACUAssessmentAnesthetic outcomeNo anesthetic complications noted.PlanTransfer/ Discharge: Patient can be discharged from PACU when criteria met.Condition good.[Electronically Signed on: 12/13/2017 10:05 EDT] Alexis Valencia MD[Verified on: 12/13/2017 10:05 EDT] Alexis Valencia MD [facility] Anesthesia Note Patient: OMEGA REYES MRN: [id number] : 62 years Sex: FEMALE : [birth year]Associated Diagnoses: NoneAuthor: Alexis Valencia MDPreoperative InformationAnesthesia history: Patient history: No difficult intubation, No malignant hyperthermia. Family history: No malignant hyperthermia.Review of SystemsConstitutional: Negative.Respiratory: Negative, No shortness of breath.Cardiovascular: No chest pain.Neurologic: Alert and oriented X4.Health StatusAllergies:Allergic Reactions (All)Severity Not DocumentedAmoxicillin- Swelling.Current medications:Home Medications (7) ActiveCalcium 600+D 600 mg-200 intl units oral tablet 1 tab(s), PO, Dailycelecoxib 200 mg oral capsule 200 mg = 1 cap(s), PO, BIDferrous sulfate 325 mg (65 mg elemental iron) oral delayed release tablet 325 mg = 1 tab(s), PO, Dailyglucosamine 750 mg oral tablet 1,500 mg = 2 tab(s), PO, Dailyibuprofen 200 mg oral tablet 400 mg = 2 tab(s), PO, TIDMetoprolol Tartrate 25 mg oral tablet 25 mg = 1 tab(s), PO, BIDTylenol 325 mg oral capsule 325 mg = 1 cap(s), PRN, PO, r2slGxchyyt list (past medical history):All ProblemsDiabetes / SNOMED CT 400342736 / ConfirmedHypertension / SNOMED CT 5421085545 / ConfirmedHistoriesFamily History:CancerMotherDiabetes mellitus type IIMotherFatherSisterCA - Lung cancerFatherHeart diseaseSisterMotherFatherCongen ital heart diseaseSisterCOPDMotherFatherHi gh blood pressureMotherFatherSisterTIAMo therTobacco userMotherFatherSisterGERD - Gastro-esophageal reflux diseaseMotherFatherSisterProced ure history:Tonsillectomy (047346612).Cholecystectomy (79878920).Hysterectomy and bilateral salpingo-oophorectomy sample (102346448).Vein of lower extremity (825631181).Comments:11/26/2017 11:21 - Rosina Goodwin RNstripping right legArthroscopy of knee (345579550).Comments:11/26/2017 11:22 - Rosina Goodwin RNright knee u5Syulvsb cuff repair (634040547).Comments:11/26/2017 11:22 - Rosina Goodwin RNleftbladder.Comments: 8 11:24 - Rosina Goodwin RNsuspensionSocial History Alcohol Assessment Use: Current. 1-2 times per week Tobacco Assessment Never (less than 100 in lifetime) Tobacco Use:..Social & Psychosocial MszerrQuwhvnv87/13/2018 Alcohol Use: Current Frequency: 1-2 times per eaxhGowjblk37/13/2018 Smoking tobacco use: Never (less than 100 in l.Physical ExaminationVS/MeasurementsVital Signs (last 24 hrs) Last ChartedHeart Rate Peripheral 70 bpm (DEC 13 07:40)Resp Rate 18 br/min (DEC 13:40)SBP 105 mmHg (DEC 13:40)DBP 63 mmHg (DEC 13 07:40)SpO2 97 % (DEC 13:40)Airway: Mallampati classification: II (soft palate, fauces, uvula visible). Temporomandibular joint mobility: Good. Mouth: Adequate opening, Teeth ( Within normal limits ). Neck: Full range of motion.Respiratory: Lungs are clear to auscultation.Cardiovascular: Regular rhythm.Neurologic: Alert, Oriented.Review / ManagementLaboratory ResultsPlanAmerican Society of Anesthesiologists#(ASA) physical status classification: Class II.Anesthetic Preoperative PlanAnesthesia: General., Regional right adductor canal block for post op pain control. Anesthetic plan, risks, benefits, and alternatives discussed with the patient and/or family. Patient verbalized understanding. Communication: discussed with surgeon that patient did not discontinue her baby ASA. Surgeon understands and says that should be fine .[Electronically Signed on: 12/13/2017 08:28 EDT] Alexis Valencia MD[Verified on: 12/13/2017 08:28 EDT] Alexis Valencia MD [facility] Consultation/Specialist Note on 12-13-2017 Consultation/Speci alist Note [id number]#1.00[facility] History and Physicalon 12-13 History and Physical [id number]#1.00OTGTIFF [facility] MAGR Intraoperative Recordon 12-13-2017 MAGR Intraoperative Record MAGR Intra-Op Record Summary Primary Physician: Finalized Date/Time: 12/13/17 07:46:31 Pt. Name: REYESLILO/Sex: 1955 FEMALE Med Rec #: [id number] Physician: Arpan Brock DO Financial #: [id number] Pt. Type: D Room/Bed: / Admit/Disch: 12/13/17 05:44:49 - Institution: Case Times MAGR Entry 1 Patient In Room Time 12/13/17 07:26:00 Out Room Time 12/13/17 07:44:00 Anesthesia Start Time 12/13/17 07:36:00 Stop Time 12/13/17 07:40:00 Surgery Start Time 12/13/17 07:36:00 Stop Time 12/13/17 07:40:00 Last Modified By: Evette Giles RN 12/13/17 07:44:29 Case Attendance MAGR Entry 1 Entry 2 Entry 3 Case Attendee Alexis Valencia MD, Laura RN Klaehn, Margaret RN Role Performed Anesthesiologist of Compound Machine Operator Compound Machine Operator Record Time In 12/13/17 07:26:00 12/13/17 07:26:00 12/13/17 07:26:00 Time Out 12/13/17 07:44:00 12/13/17 07:43:00 12/13/17 07:43:00 Procedure Adductor Canal Adductor Canal Adductor Canal Block(Right, Knee) Block(Right, Knee) Block(Right, Knee) Last Modified By: Evette Giles RN, Margaret RN Klaehn, Margaret RN 12/13/17 07:44:21 12/13/17 07:44:21 12/13/17 07:44:21 Entry 4 Case Attendee Larissa Newsome Role Performed Compound Machine Operator Time In 12/13/17 07:26:00 Time Out 12/13/17 07:43:00 Procedure Adductor Canal Block(Right, Knee) Last Modified By: Evette Giles RN 12/13/17 07:44:21 Surgical Procedures MAGR Pre-Care Text: A.20 Verifies operative procedure, surgical site, and laterality Im.150 Develops individualized plan of care Entry 1 Procedure Adductor Canal Block Primary Procedure Yes Primary Surgeon Alexis Valencia MD Modifiers Right, Knee Surgeon Comment ADDUCTOR BLOCK PRIOR TO Start 12/13/17 07:36:00 RIGHT TOTAL KNEE Stop 12/13/17 07:40:00 Anesthesia Type Regional Block Surgical Service Anesthesia Wound Class Clean Last Modified By: Evette Giles RN 12/13/17 07:45:30 Post-Care Text: O.730 The patient's care is consistent with the individualized perioperative plan of care General Case Data MAGR Pre-Care Text: A.350.1 Classifies surgical wound Entry 1 Case Information OR MAGR Proc Room Case Level None Wound Class Clean Specialty Anesthesia ASA Class 2 Diagnosis Preop Diagnosis ADDUCTOR BLOCK PRIOR TO Postop Same As Preop Yes TOTAL KNEE Postop Diagnosis ADDUCTOR BLOCK PRIOR TO TOTAL KNEE Last Modified By: Evette Giles RN 12/13/17 07:33:19 Post-Care Text: O.760 Patient receives consistent and comparable care regardless of the setting Time Out MAGR Entry 1 Time out date/time 12/13/17 07:27:00 All team members Yes have introduced themselves by name and role Surgeon, Yes Surgeon reviews Yes anesthesia, nurse critical or confirm patient, unexpected steps, site, procedure operative duration, anticipated blood loss Anesthesia team Yes Nursing team Yes reviews any reviews sterility patient-specific (including concerns indicator results) and equipment issues/concerns Antibiotic Antibiotic N/A prophylaxis given within the last 60 minutes Is essential Yes imaging displayed? Last Modified By: Evette Giles RN 12/13/17 07:33:44 Patient Positioning MAGR Pre-Care Text: A.280 Identifies baseline musculoskeletal status Im.40 Positions the patient Im.80 Applies safety devices Entry 1 Procedure Adductor Canal Body Position Supine Block(Right, Knee) Left Arm Position Resting at Side Right Arm Position Resting at Side Left Leg Position Extended Right Leg Position Extended Feet Uncrossed? Yes Press Points Checked Yes Outcome Met (O.80) Yes Last Modified By: Evette Giles RN 12/13/17 07:34:00 Post-Care Text: E.290 Evaluates musculoskeletal status O.80 Patient is free from signs and symptoms of injury related to positioning Skin Prep MAGR Pre-Care Text: A.30 Verifies allergies Im.270 Performs skin preparation Im.270.1 Implements protective measures to prevent skin and tissue injury due to chemical sources Entry 1 Skin Prep Syntegrity Prep Agents (Im.270) Chlorhexidine Gluconate Prep By Alexis Valencia MD and Alcohol Prep Area (Im.270) Knee Prep Area Details Right Skin Prep Agent Dry Yes Without Pooling Hair Removal Syntegrity Hair Removal Methods No hair removal performed Outcome Met (O.100) Yes Last Modified By: Evette Giles RN 12/13/17 07:39:02 Post-Care Text: E.10 Evaluates for signs and symptoms of physical injury to skin and tissue O.100 Patient is free from signs and symptoms of chemical injury Departure from OR MAGR Entry 1 Present on Depart N/A Via Stretcher Post-op Destination [facility] DFO Condition Intact Description Condition Dry Description Report Given To Larissa Newsome Airway Maintenance Patient Status Stable Last Modified By: Evette Giles RN 12/13/17 07:39:40 Case Comments Finalized By: Evette Giles RN Document Signatures Signed By: Evette Giles RN 12/13/17 07[facility]46 [facility] PACU Record MAGR PACU Record [facility] Primary Physician: Arpan Brock DO Finalized Date/Time: 12/13/17 11:21:27 Pt. Name: LILO REYES/Sex: 1955 FEMALE Med Rec #: [id number] Physician: Arpan Brock DO Financial #: [id number] Pt. Type: D Room/Bed: 220/1 Admit/Disch: 12/13/17 05:44:49 - Institution: PACU Case Times MAGR Entry 1 In PACU I 12/13/17 09:48:00 Discharge from PACU 12/13/17 11:00:00 I Last Modified By: Liliana Ramsey RN 12/13/17 11:21:21 Finalized By: Liliana Ramsey RN Document Signatures Signed By: Liliana Ramsey RN 12/13/17 11:21 [facility] MAGR Preoperative Recordon 0 12-13-2017 MAGR Preoperative Record MAGR Pre-Op Record Summary Primary Physician: Arpan Brock DO Finalized Date/Time: 12/13/17 07:47:00 Pt. Name: LILO REYES /Sex: 1955 FEMALE Med Rec #: [id number] Physician: Arpan Brock DO Financial #: [id number] Pt. Type: D Room/Bed: / Admit/Disch: 12/13/17 05:44:49 - Institution: Pre-Op Case Times MAGR Pre-Care Text: Patient will be optimally prepared for surgery. Patient is free from s/s of injury. Provide information to patient/family related to plan of care. Verify patient allergies. Confirm identity and verify consent before the operative or invasive procedure. Entry 1 Patient Arrival Time 12/13/17 05:59:00 Preop Departure 12/13/17 07:44:00 Last Modified By: Evette Giles RN 12/13/17 07:46:59 Post-Care Text: Patient is prepared mentally and physically and is ready for surgery. The patient remains free from s/s of injury. Patient/family express understanding of plan of care and participate in decisions affecting his or her perioperrative plan of care. Allergies documented appropriately. Patient identifiers and consent correct. General Comments: Denies chest pain, shortness of breath or illnessess. Denies pacemaker/defib. Denies sleep apnea. Finalized By: Evette Giles RN Document Signatures Signed By: Evette Giles RN 12/13/17 07:47 [facility] Operative Report - Surgeon/P edd 12-13-2017 Operative Report - Surgeon/Physician Preoperative diagnosis: Osteoarthritis is degenerative joint disease right kneePostoperative diagnosis: SameProcedure: Right total knee arthroplasty Femur size 6 Tibia size E Patella size 32 Tibial tray size 10 mm standard posterior stabilized Short tibial stemSurgeon: Ean Brock D.O.Anesthesia: GeneralIndications for surgery: Radiographic and clinical findings consistent with osteoarthritis/degenerative joint disease with symptoms affecting daily living inhibiting daily activities and failure of conservative treatmentEstimated blood loss: 50Complications: NoneFindings: Thinning and absence of articular cartilage findings consistent with advanced osteoarthritis/degenerative joint disease. Marked valgus malalignmentProcedure summary: Patient was brought to the operative suite. Patient was positioned supine. The right leg was sterilely prepped and draped in usual fashion and then a timeout was taken in the operating room. The leg was exsanguinated and tourniquet was inflated. An anterior incision was made with a medial parapatellar approach. Dissection was carried down to the capsule. The anterior medial tibia was exposed . The fat pad was excised and then the patella was cut in line tendon to tendon. The patella sized out to 32. The patella was prepared with Peg drill and then covered with a metallic disc to protect the bone.The knee was then placed in flexion and the femoral canal was drilled. An intramedullary cutting guide was inserted and the distal femoral cut was taken utilizing a standard cut.The knee was dislocated and the meniscus were excised. The extra medullary cutting guide was secured to the tibia and referencing off the spine of the tibia cut was taken perpendicular to the tibiaThe knee was placed in extension and a 12 mm spacer block was inserted with the drop gildardo to check for perpendicularity. And also to make sure the knee was balanced in extension.The knee was then placed back in flexion and the femoral sizer was attached to the femur. Femur sized out to 6. Drill holes were made at 5? to accommodate the pegs. The sizer was removed and the distal femoral cutting block was inserted. The anterior and posterior cuts were taken followed by the chamfer cuts. Next the femoral trial was impacted in the place and secured in place with two 6.5 mm acetabular screws. The knotch cut was taken to accommodate a constrained posterior stabilized component.The tibia was sized. It sized out to a E. Trial components were inserted and the knee was taken through range of motion. A size 10 tibial spacer fit best and was balanced both in flexion and extension. The spacer was removed and the tibial tray was pinned in place. The tibia was prepared with a drill and a broach. The trial components were removed. The posterior capsule was injected with exparel. Utilizing a 22-gauge spinal needle. 8 punctures were made in the posterior medial capsule and 8 punctures were made in the posterior lateral capsule. The remaining fluid was infiltrated around the medial and lateral capsule as well as the anterior capsule. A total of 20 cc of exparel was used . The bone was washed with pulsatile lavage saline. The bone was dried. Meanwhile the cement had been mixed on the back table. The tibial component along with a short 30 mm stem was then cemented into place. All excess cement was removed. The femoral component was then cemented into place. The polyethylene tibial spacer was then clicked into place and the knee was placed in terminal extension with compression across the joint. The knee was held in terminal extension with compression across the joint until the cement was completely hardened.Meanwhile the metal protector was removed from the patella. The patella was washed with pulse lavage saline and then dried. The patella button was then cemented into place and held clamped with the knee in extension until the cement was completely hardened.The knee was then taken through range of motion and the patella was tracking midline. The knee was balanced both in flexion and extension. The joint was washed with pulse lavage saline and dried. The knee was then placed in flexion and the capsule was closed with 0 Vicryl suture. The tourniquet was deflated.The fat layers were closed with 0 Vicryl suture. Subcutaneous layers were closed with 0 Vicryl suture. Skin clips were applied superficially. Bacitracin Adaptic sterile dressings were applied.The patient was then taken to the recovery room.[Electronically Signed on: 12/13/2017 10:15 EDT] Arpan Brock DO[Verified on: 12/13/2017 10:15 EDT] Arpan Brock DO [facility] Progress Note - Nurseon 04-3 Thyroid stimulating hormone (TSH) Pt. received toradol IV and reports it did not help with the #5 right calf pain. I removed the calf pumps and pt. reports her calf discomfort is just about gone. Bharat foot pumps applied. Pt. reports this feels much better.[Electronically Signed on: 12/13/2017 15:11 EDT] Carlos Alba RN[Verified on: 12/13/2017 15:11 EDT] Carlos Abla RN [facility] Progress Note - Nurse Pt. arrives from OR via bed alert and in stable condition. Report received from Liliana DURAN. Pt. reports #5 tolerable pain to calf and behind right knee. Pt. repositioned in bed and reported this took the edge off. Denied further pain med need. Denies nausea. Garcia hose, calf pumps, towel rolls, and polar care in place. Morfin drainage clear yellow urine. Dressing to right knee dry and intact. C and DB, foot exercies encouraged hourly. Pt. oriented to room, vitals initiated. Pt. denies numbness and tingling to right lower extremity. Ice chip given.[Electronically Signed on: 12/13/2017 14:55 EDT] Carlos Alba RN[Verified on: 12/13/2017 14:55 EDT] Carlos Abla RN [facility] w Culture if Ind Standard on 12-13-2017 [facility] Comment on above: Order Comment: morfin insert Performed By: #### 7 [id number], [id number], [id number], [id number] ####[facility] (DEFAULT)[address] [place] [address] Culture? Not Indicated Invalid Interpretation Code [facility] Comment on above: Order Comment: morfin insert Performed By: #### 7 [id number], [id number], [id number], [id number] ####[facility] (DEFAULT)[address] [place] [address] Micro? Not Indicated Invalid Interpretation Code [facility] Comment on above: Order Comment: morfin insert Performed By: #### 7 [id number], [id number], [id number] ####[facility] (DEFAULT)[address] [place] [address] UA Bilirubin Negative Normal [facility] Comment on above: Order Comment: morfin insert Performed By: #### 7 [id number], [id number], [id number] ####[facility] (DEFAULT)[address] [place] [address] UA Blood Negative Normal NEGATIVE [facility] Comment on above: Order Comment: morfin insert Performed By: #### 7 [id number], [id number], [id number], [id number] ####[facility] (DEFAULT)[address] [place] [address] UA Clarity CLEAR Normal CLEAR [facility] Comment on above: Order Comment: morfin insert Performed By: #### 7 [id number], [id number], [id number], [id number] ####[facility] (DEFAULT)[address] [place] [address] UA Leuk Est Negative Normal NEGATIVE [facility] Comment on above: Order Comment: morfin insert Performed By: #### 7 [id number], [id number], [id number], [id number] ####[facility] (DEFAULT)[address] [place] [address] UA Nitrite Negative Normal NEGATIVE [facility] Comment on above: Order Comment: morfin insert Performed By: #### 7 [id number], [id number], [id number], [id number] ####[facility] (DEFAULT)[address] [place] [address] UA pH 5.5 Invalid Interpretation Code 5-8 [facility] Comment on above: Order Comment: morfin insert Performed By: #### 7 [id number], [id number], [id number], [id number] ####[facility] (DEFAULT)[address] [place] [address] UA Protein Negative Normal NEGATIVE [facility] Comment on above: Order Comment: morfin insert Performed By: #### 7 [id number], [id number], [id number], [id number] ####[facility] (DEFAULT)[address] [place] [address] UA Spec Grav <=1.005 Invalid Interpretation Code 1.001-1.[address] [place] [address] Comment on above: Order Comment: morfin insert Performed By: #### 7 [id number], [id number], [id number], [id number] ####[facility] (DEFAULT)[address] [place] [address] UA Urobilinogen 0.2 mg/dL Normal 0.2-1.0 [facility] Comment on above: Order Comment: morfin insert Performed By: #### 7 [id number], [id number], [id number], [id number] ####[facility] (DEFAULT)[address] [place] [address] Urine Source Morfin Catheter Normal [facility] Comment on above: Order Comment: morfin insert Performed By: #### 7 [id number], [id number], [id number], [id number] ####[facility] (DEFAULT)[address] [place] [address] Urine, color STRAW Invalid Interpretation Code [facility] Comment on above: Order Comment: morfin insert Performed By: #### 7 [id number], [id number], [id number], [id number] ####[facility] (DEFAULT)[address] [place] [address] Urine, glucose Negative Invalid Interpretation Code [facility] Comment on above: Order Comment: morfin insert Performed By: #### 7 [id number], [id number], [id number], [id number] ####[facility] (DEFAULT)[address] [place] [address] Urine, ketones presence Negative Invalid Interpretation Code [facility] Comment on above: Order Comment: morfin insert Performed By: #### 7 [id number], [id number], [id number], [id number] ####[facility] (DEFAULT)[address] [place] [address] XR Knee One or Two Views Rig hton 12-13-2017 XR Knee One or Two Views Right KNEE ONE OR TWO VIEWS RIGHTCLINICAL DATA: Previous history of right knee pain, status post right kneearthroplasty.Frontal and lateral views of the right knee were obtained with portabletechnique at 1000 hours. There are prosthetic devices about the distal femurand proximal tibia in satisfactory position and alignment. Postoperativechange at the posterior patellar level appears unremarkable. There arepostoperative clips and sutures noted. There are postoperative soft tissuechanges with soft tissue swelling and superficial as well as joint spacenarrowing identified.IMPRESSION: UNREMARKABLE POST ARTHROPLASTY APPEARANCE OF THE RIGHT KNEE.Austin Gonzalez MDJOElziabeth #: [id number]: 12/13/2017T: 12/13/2017 Final Dictated by: Austin Gonzalez MD SDictated DT/TM: 12/13/17 10:35Signed (Electronic Signature): Austin Gonzalez MD 12/13/17 1:37 pmTechnologist: Latricia LINO [facility] ABORhon 12-12-2017 ABORh Hx Check: Not Found Anti-A: 4+ Anti-B: 0 Anti-D: 4+ DCon: NT A1: 0 B: 4+ ABORh Interp: A POS Invalid Interpretation Code [facility] Comment on above: Performed By: #### 7 [id number], [id number], [id number], [id number] ####[facility] (DEFAULT)[address] [place] [address] ABORh Retypeon 12-12-2017 ABORh Retype Ordered by Discern. Anti-A: 4+ Anti-B: 0 Anti-D: 4+ DCon: NT A1: 0 B: 4+ ABORh Retype: A POS Invalid Interpretation Code [facility] Comment on above: Performed By: #### 7 [id number], [id number], [id number], [id number] ####[facility] (DEFAULT)[address] [place] [address] ABSC Gelon 12-12-2017 ABSC Gel Negative [facility] Comment on above: Performed By: #### 7 [id number], [id number], [id number], [id number] ####[facility] (DEFAULT)[address] [place], [place] [address] Blood Bank IDon 12-12-2017 Blood Bank ID BBID: [id number] Invalid Interpretation Code [facility] Comment on above: Performed By: #### 7 [id number], [id number], [id number], [id number] ####[facility] (DEFAULT)[address] [place] [address] Extra Dima 12-12-2017 Tube Collected Yes Invalid Interpretation Code [facility] Comment on above: Performed By: #### 7 [id number], [id number], [id number], [id number] ####[facility] (DEFAULT)[address] [place] [address] Progress Note - Nurseon 11-15 Progress Note - Nurse Preop call completed, patient arriving at 0600, preop instructions reviewed with patient[Electronically Signed on: 12/10/2017 09:46 EDT] Anne Clayton RN[Verified on: 12/10/2017 09:46 EDT] Anne Clayton RN [facility] Coding Summaryon 12-02-2017 Coding Summary CODING DATE: 018 [facility] STATUS: Home PAYOR: Commercial Insurance APC DESCRIPTION 5733 Level 3 Minor Procedures ADMIT DX: REASON FOR VISIT DX: Z01.810 Encounter for preprocedural cardiovascular examination FINAL DX: PRINCIPAL: Z01.810 Encounter for preprocedural cardiovascular examination SECONDARY: Z01.812 Encounter for preprocedural laboratory examination M81.0 Age-related osteoporosis without current pathological fracture I10 Essential (primary) hypertension R73.03 Prediabetes R00.1 Bradycardia, unspecified PYMT PROC APC STAT DESCRIPTION DOCTOR NAME DATE NOTE: The code number assigned matches the documented diagnosis and / or procedure in the patient's chart. However, the narrative phrase printed from the coding software may appear abbreviated, or result in slightly different terminology. Coded By: Dania Sanchez Date Saved: 12/02/2017 12:44 pm [facility] Provider Orderson 12-02-2017 Provider Orders [id number] Documentso n 11-29-2017 Advance Directive Documents [id number][facility] Directive Documents [id number][facility] C MRSA Screenon 11-27-2017 C MRSA Screen Negative [facility] Comment on above: Performed By: #### 1 [id number] ####[facility] (DEFAULT)[address] [place] [address] .Auto Diff 1on 11-26-2017 Auto Baso % 0.9 % Normal 0.2-2.0 [facility] Comment on above: Performed By: #### 7 214366, [id number], [id number], 9322962 ####[facility] (DEFAULT)[address] [place] [address] Auto Pierce % 7 % Normal 1-12 [facility] Comment on above: Performed By: #### 7 017267, [id number], [id number], 9493520 ####[facility] (DEFAULT)[address] [place] [address] Auto Neut % 53 % Normal 44-88 [facility] Comment on above: Performed By: #### 7 870959, 29345980, [id number], [id number] ####[facility] (DEFAULT)[address] [place] [address] Baso Abs# 0.1 x10 Normal 0.0-0.2 [facility] Comment on above: Performed By: #### 7 325268, [id number], [id number], 7759462 ####[facility] (DEFAULT)[address] [place] [address] Eos Abs# 0.2 x10 Normal 0.0-0.4 [facility] Comment on above: Performed By: #### 7 997979, 59680483, [id number], 1235910 ####[facility] (DEFAULT)[address] [place] [address] Eosinophils/100 leukocytes 2.7 % Normal 0.9-4.0 [facility] Comment on above: Performed By: #### 7 076791, 79541108, [id number], 8658443 ####[facility] (DEFAULT)[address] [place] [address] Lymphocytes 2.4 x10 Normal 1.3-2.9 [facility] Comment on above: Performed By: #### 7 002508, 03404973, [id number], 4338156 ####[facility] (DEFAULT)[address] [place] [address] Lymphocytes/100 leukocytes 36 % Normal 14-48 [facility] Comment on above: Performed By: #### 7 455939, 07656836, [id number], 5789528 ####[facility] (DEFAULT)[address] [place] [address] Pierce Abs# 0.5 x10 Normal 0.0-0.8 [facility] Comment on above: Performed By: #### 7 917500, 38125964, [id number], 5717568 ####[facility] (DEFAULT)[address] [place] [address] Neut Abs# 3.6 x10 Normal 1.5-9.2 [facility] Comment on above: Performed By: #### 7 196371, 57162770, [id number], 9526022 ####[facility] (DEFAULT)[address] [place] [address] CBC w/ Auto Diffon 8 Erythrocyte distribution width Auto Ratio (RBC) 14.6 % Normal 11.5-15.0 [facility] Comment on above: Performed By: #### 7 382211, 19770797, [id number], 9747164 ####[facility] (DEFAULT)[address] [place] [address] Erythrocytes (RBC) 4.87 x10 Normal 3.70-5.30 [facility] Comment on above: Performed By: #### 7 479915, 67247802, [id number], 9977774 ####[facility] (DEFAULT)[address] [place] [address] Hematocrit (HCT) 40.4 % Normal 33.7-40.4 [facility] Comment on above: Performed By: #### 7 024404, 70116576, [id number], 5108909 ####[facility] (DEFAULT)[address] [place] [address] Hemoglobin mass conc (Bld) 12.9 g/dL Normal 11.3-15.9 [facility] Comment on above: Performed By: #### 7 554626, 55108849, [id number], 0933669 ####[facility] (DEFAULT)[address] [place] [address] Man Diff? Auto Normal [facility] Comment on above: Performed By: #### 7 623252, 07728627, [id number], 9702526 ####[facility] (DEFAULT)[address] [place] [address] MCH 26 pg Normal 24-34 [facility] Comment on above: Performed By: #### 7 833130, 21801765, [id number], 9166219 ####[facility] (DEFAULT)[address] [place] [address] MCHC mass conc (RBC) 32 g/dL Normal 26-37 [facility] Comment on above: Performed By: #### 7 741971, 28330060, [id number], 8809706 ####[facility] (DEFAULT)[address] [place] [address] MCV 83 fL Normal 81-100 [facility] Comment on above: Performed By: #### 7 442657, 29825284, [id number], 5920867 ####[facility] (DEFAULT)[address] [place] [address] Platelet mean volume (PMV) 11.2 fL High 6.3-10.2 [facility] Comment on above: Performed By: #### 7 109337, 56437125, [id number], 0602171 ####[facility] (DEFAULT)[address] [place] [address] Platelets 236 x10 Normal 138-427 [facility] Comment on above: Performed By: #### 7 116393, 69836019, [id number], 1444713 ####[facility] (DEFAULT)[address] [place] [address] WBC (Leukocytes) 6.7 x10 Normal 3.5-10.5 [facility] Comment on above: Performed By: #### 7 064719, 40291696, [id number], 8445777 ####[facility] (DEFAULT)[address] [place] [address] Standardon 11-26-2017 eGFR (non-black) mL/min/{1.73_m2} Invalid Interpretation Code [facility] Comment on above: Performed By: #### 7 619560, 36307711, [id number], 2493362 ####[facility] (DEFAULT)[address] [place] [address] eGFR (non-black) mL/min/{1.73_m2} Invalid Interpretation Code [facility] Comment on above: Result Comment: Cloth Layer madina Kidney disease could be indicated at eGFRs of less than 60 ml/min/1.73m2. Kidney Failure is indicated at less than 15 ml/min/1.73m2 Performed By: #### 7 214650, 87824639, [id number], 0726221 ####[facility] (DEFAULT)[address] [place] [address] Albumin 4.2 g/dL Normal 3.5-5.0 [facility] Comment on above: Performed By: #### 7 045939, 95595016, [id number], 4575907 ####[facility] (DEFAULT)[address] [place] [address] Albumin/Globulin Ratio 1.2 {ratio} Low 1.4-2.6 [facility] Comment on above: Performed By: #### 7 194923, 18156853, [id number], 3269819 ####[facility] (DEFAULT)[address] [place] [address] Alk Phos 64 IU/L Normal 32-91 [facility] Comment on above: Performed By: #### 7 892560, 81220051, 7373139050, 5197108 ####[facility] (DEFAULT)[address] [place] [address] ALT/SGPT 15.0 IU/L Normal 14.0-54.0 [facility] Comment on above: Performed By: #### 7 667222, 38984608, 9110418570, 6796746 ####[facility] (DEFAULT)[address] [place] [address] Anion gap 10.0 mmol/L Normal 5.0-19.0 [facility] Comment on above: Performed By: #### 7 051023, 94300517, 1140668335, 9809314 ####[facility] (DEFAULT)[address] [place] [address] AST/SGOT 19 IU/L Normal 15-41 [facility] Comment on above: Performed By: #### 7 264982, 72021168, 2422196500, 6154115 ####[facility] (DEFAULT)[address] [place] [address] Bili Total 0.3 mg/dL Normal 0.3-1.2 [facility] Comment on above: Performed By: #### 7 858505, 39885773, 1151227135, 3605941 ####[facility] (DEFAULT)[address] [place] [address] BUN/Creatinine Ratio 28.0 mg/mg High 4.6-16.2 [facility] Comment on above: Performed By: #### 7 626377, 96657507, 4441227081, 5078170 ####[facility] (DEFAULT)[address] [place] [address] Calcium 9.6 mg/dL Normal 8.9-10.3 [facility] Comment on above: Performed By: #### 7 294933, 60216932, 8216758725, 4600581 ####[facility] (DEFAULT)[address] [place] [address]46 Chloride 105 mmol/L Normal 101-111 [facility] Comment on above: Performed By: #### 7 638693, 24203865, 6541368784, 0270244 ####[facility] (DEFAULT)[address] [place] [address] CO2 29 mmol/L Normal 21-32 [facility] Comment on above: Performed By: #### 7 569369, 04293939, [id number], 2792397 ####[facility] (DEFAULT)[address] [place] [address] Creatinine 0.64 mg/dL Normal 0.60-1.30 [facility] Comment on above: Performed By: #### 7 220873, 81266150, 1817196075, 1503196 ####[facility] (DEFAULT)[address] [place] [address] Globulin 3.4 g/dL Normal 1.5-4.3 [facility] Comment on above: Performed By: #### 7 064215, 95462264, 9070507493, 6018021 ####[facility] (DEFAULT)[address] [place] [address] Glucose mass conc 96.0 mg/dL Normal 74.0-118.0 [facility] Comment on above: Performed By: #### 7 470098, 06007415, 3260911249, 0977581 ####[facility] (DEFAULT)[address] [place] [address] Osmolality 281 mOsm/L Invalid Interpretation Code [facility] Comment on above: Performed By: #### 7 217485, 20365679, [id number], 4797890 ####[facility] (DEFAULT)[address] [place] [address] Potassium molar conc 4.3 mmol/L Normal 3.6-5.1 [facility] Comment on above: Performed By: #### 7 528843, 34072968, 0073846627, 1720976 ####[facility] (DEFAULT)[address] [place] [address] Protein 7.6 g/dL Normal 6.5-8.1 [facility] Comment on above: Performed By: #### 7 767914, 45366004, 9149821160, 5394137 ####[facility] (DEFAULT)[address] [place] [address] Sodium 140.0 mmol/L Normal 136.0-144. 0 [facility] Comment on above: Performed By: #### 7 376645, 72690740, 6464694551, 6883207 ####[facility] (DEFAULT)[address] [place] [address] Urea nitrogen 18 mg/dL Normal 8-26 [facility] Comment on above: Performed By: #### 7 354129, 28081553, 9706531325, 6228348 ####[facility] (DEFAULT)[address] [place] [address] PT/PTTon 11-26-2017 aPTT 27 second(s) Normal 25-35 [facility] Comment on above: Performed By: #### 7 110589, 23010025, 6272689055, 2657699 ####[facility] (DEFAULT)[address] [place] [address]8422 INR Coag RelTime (PPP) 1.01 {INR} Normal 0.91-1.11 [facility] Comment on above: Performed By: #### 7 358855, 48235742, [id number], 7443393 ####[facility] (DEFAULT)[address] [place] [address] Prothrombin time (PT) Coag time (PPP) 10.5 second(s) Normal 9.7-11.8 [facility] Comment on above: Performed By: #### 7 943427, 89026203, [id number], 3492294 ####[facility] (DEFAULT)[address] [place] [address] UA w Culture if Ind Standard on 11-26-2017 Breakpoint UA Normal [facility] Comment on above: Performed By: #### 1 [id number] ####[facility] (DEFAULT)[address] [place] [address] Culture? Not Indicated Invalid Interpretation Code [facility] Comment on above: Performed By: #### 1 [id number] ####[facility] (DEFAULT)[address] [place] [address] Micro? Not Indicated Invalid Interpretation Code [facility] Comment on above: Performed By: #### 1 [id number] ####[facility] (DEFAULT)[address] [place] [address] UA Bilirubin Negative Normal [facility] Comment on above: Performed By: #### 1 [id number] ####[facility] (DEFAULT)[address] [place] [address] UA Blood Negative Normal NEGATIVE [facility] Comment on above: Performed By: #### 1 [id number] ####[facility] (DEFAULT)[address] [place] [address] UA Clarity CLEAR Normal CLEAR [facility] Comment on above: Performed By: #### 1 [id number] ####[facility] (DEFAULT)[address] [place] [address] UA Leuk Est Negative Normal NEGATIVE [facility] Comment on above: Performed By: #### 1 [id number] ####[facility] (DEFAULT)[address] [place] [address] UA Nitrite Negative Normal NEGATIVE [facility] Comment on above: Performed By: #### 1 [id number] ####[facility] (DEFAULT)[address] [place] [address]76 UA pH 6.5 Invalid Interpretation Code 5-8 [facility] Comment on above: Performed By: #### 1 [id number] ####[facility] (DEFAULT)[address] [place] [address] UA Protein Negative Normal NEGATIVE [facility] Comment on above: Performed By: #### 1 [id number] ####[facility] (DEFAULT)[address] [place] [address] UA Spec Grav 1.015 Invalid Interpretation Code 1.001-1.03 5 [facility] Comment on above: Performed By: #### 1 [id number] ####[facility] (DEFAULT)[address] [place] [address] UA Urobilinogen 0.2 mg/dL Normal 0.2-1.0 [facility] Comment on above: Performed By: #### 1 [id number] ####[facility] (DEFAULT)[address] [place] [address] Urine Source Clean Catch Normal [facility] Comment on above: Performed By: #### 1 [id number] ####[facility] (DEFAULT)[address] [place] [address] Urine, color YELLOW Invalid Interpretation Code [facility] Comment on above: Performed By: #### 1 [id number] ####[facility] (DEFAULT)[address] [place] [address] Urine, glucose Negative Invalid Interpretation Code [facility] Comment on above: Performed By: #### 1 [id number] ####[facility] (DEFAULT)[address] [place] [address] Urine, ketones presence Negative Invalid Interpretation Code [facility] Comment on above: Performed By: #### 1 [id number] ####[facility] (DEFAULT)[address] [place] [address] Vital Signs Date Time Vital Sign Value Performing Clinician Facility 08-27-2023 08:36-0500 Blood Pressure Location Noris Solomon [facility] 08-27-2023 08:36-0500 Body temperature 96.8 [degF] Noris Solomon [facility] 08-27-2023 08:36-0500 Diastolic blood pressure 59 mm[Hg] Noris Solomon [facility] 08-27-2023 08:36-0500 Heart rate 61 /min Noris Solomon [facility] 08-27-2023 08:36-0500 Systolic blood pressure 114 mm[Hg] Noris Solomon [facility] 07-27-2023 13:30-0500 Diastolic blood pressure 56 mm[Hg] Braulio Garay MD Work Phone: [facility] [employer] [facility] 07-27-2023 13:30-0500 Systolic blood pressure 118 mm[Hg] Braulio Garay MD Work Phone: [facility] [employer] [facility] 07-27-2023 11:19-0500 Body temperature 97.7 [degF] Braulio Garay MD Work Phone: [facility] [employer] [facility] 07-27-2023 11:19-0500 Heart rate 50 /min Braulio Garay MD Work Phone: [employer] 07-27-2023 11:19-0500 Respiratory rate 16 /min Braulio Garay MD Work Phone: [facility] [employer] 07-27-2023 11:19-0500 SaO2% (BldA) [Mass fraction] 94 % [facility] 07-26-2023 10:28-0500 Body height 160 cm [facility] 07-26-2023 10:28-0500 Body mass index (BMI) [Ratio] 34.12 kg/m2 [facility] 07-26-2023 10:28-0500 Body weight 87.36 kg Braulio Garay MD Work Phone: [facility] [employer] [facility] 07-23-2023 08:52-0500 Diastolic blood pressure 71 mm[Hg] Louise Owusu [facility] 07-23-2023 08:52-0500 Heart rate 63 /min Louise Owusu [facility] 07-23-2023 08:52-0500 Mean blood pressure 87 mm[Hg] Louise Owusu [facility] 07-23-2023 08:52-0500 Respiratory rate 14 /min Louise Owusu [facility] 07-23-2023 08:52-0500 Systolic blood pressure 119 mm[Hg] Louise Owusu [facility] 06-30-2023 10:28-0500 Heart rate 47 /min Juwan Mendez [facility] 06-30-2023 10:28-0500 SaO2% (BldA) [Mass fraction] 98 % uJwan Mendez [facility] 06-30-2023 10:28-0500 Diastolic blood pressure 80 mm[Hg] Juwan Mendez [facility] 06-30-2023 10:28-0500 Mean blood pressure 103 mm[Hg] Juwan Mendez [facility] 06-30-2023 10:28-0500 Systolic blood pressure 150 mm[Hg] Juwan Mendez [facility] 06-30-2023 10:27-0500 Respiratory rate 16 /min Juwan Mendez [facility] 06-30-2023 10:20-0500 Diastolic blood pressure 74 mm[Hg] Juwan Mendez [facility] 06-30-2023 10:20-0500 Heart rate 58 /min Juwan Mendez [facility] 06-30-2023 10:20-0500 SaO2% (BldA) [Mass fraction] 97 % Juwan Mendez [facility] 06-30-2023 10:20-0500 Systolic blood pressure 123 mm[Hg] Juwan Mendez [facility] 06-30-2023 08:10-0500 Heart rate 48 /min Juwan Mendez [facility] 06-30-2023 08:10-0500 SaO2% (BldA) [Mass fraction] 98 % Juwan Mendez [facility] 06-30-2023 08:09-0500 Diastolic blood pressure 73 mm[Hg] Juwan Mendez [facility] 06-30-2023 08:09-0500 Mean blood pressure 88 mm[Hg] Juwan Mendez [facility] 06-30-2023 08:09-0500 Systolic blood pressure 119 mm[Hg] Juwan Mendez [facility] 06-30-2023 08:09-0500 Body temperature 98.06 [degF] Juwan Mendez [facility] 06-30-2023 08:03-0500 Respiratory rate 14 /min Juwan Mendez [facility] 06-10-2023 07:55-0400 Diastolic blood pressure 61 mm[Hg] Juwan Mendez [facility] 06-10-2023 07:55-0400 Heart rate 48 /min Echeverria Mendez [facility] 06-10-2023 07:55-0400 Mean blood pressure 79 mm[Hg] Juwan Mendez [facility] 06-10-2023 07:55-0400 Respiratory rate 16 /min Juwan Mendez [facility] 06-10-2023 07:55-0400 Systolic blood pressure 115 mm[Hg] Juwan Mendez [facility] 05-06-2023 08:38-0400 Body height 160 cm Braulio Garay MD Work Phone: [facility] 05-06-2023 08:38-0400 Body mass index (BMI) [Ratio] 35.68 kg/m2 Braulio Garay MD Work Phone: [facility] 05-06-2023 08:38-0400 Body temperature 96.69 [degF] Braulio Garay MD Work Phone: [facility] 05-06-2023 08:38-0400 Body weight 91.35 kg Braulio Garay MD Work Phone: [facility] 04-28-2023 13:05-0400 Diastolic blood pressure 66 mm[Hg] Juwan Mendez [facility] 04-28-2023 13:05-0400 Heart rate 60 /min Echeverria Andrea [facility] 04-28-2023 13:05-0400 Mean blood pressure 84 mm[Hg] Juwan Mendez [facility] 04-28-2023 13:05-0400 Respiratory rate 14 /min Juwan Mendez [facility] 04-28-2023 13:05-0400 Systolic blood pressure 119 mm[Hg] Echeverria Andrea [facility] 04-02-2023 09:34-0400 Diastolic blood pressure 66 mm[Hg] Louise Owusu [facility] 04-02-2023 09:34-0400 Heart rate 44 /min Louise Owusu [facility] 04-02-2023 09:34-0400 Respiratory rate 14 /min Louise Owusu [facility] 04-02-2023 09:34-0400 Systolic blood pressure 131 mm[Hg] Louise Owusu [facility] 03-03-2023 14:55-0400 Body height 160 cm Braulio Garay MD Work Phone: [facility] 03-03-2023 14:55-0400 Body mass index (BMI) [Ratio] 38.44 kg/m2 Braulio Garay MD Work Phone: [facility] 03-03-2023 14:55-0400 Body temperature 97 [degF] Braulio Garay MD Work Phone: [facility] 03-03-2023 14:55-0400 Body weight 98.43 kg Braulio Garay MD Work Phone: [facility] 02-19-2023 10:44-0400 Diastolic blood pressure 87 mm[Hg] Louisekia Owusu [facility] 02-19-2023 10:44-0400 Heart rate 49 /min Louisekia Owusu [facility] 02-19-2023 10:44-0400 Mean blood pressure 114 mm[Hg] Louisekia Owusu [facility] 02-19-2023 10:44-0400 Respiratory rate 16 /min Louise Owusu [facility] 02-19-2023 10:44-0400 Systolic blood pressure 169 mm[Hg] Louisekia Owusu [facility] 01-20-2023 12:00-0400 Heart rate 58 /min Garrett Zumbar [facility] 01-20-2023 12:00-0400 SaO2% (BldA) [Mass fraction] 96 % Garrett Zumbar [facility] 01-20-2023 12:00-0400 Diastolic blood pressure 71 mm[Hg] Garrett Zumbar [facility] 01-20-2023 12:00-0400 Mean blood pressure 93 mm[Hg] Garrett Zumbar [facility] 01-20-2023 12:00-0400 Systolic blood pressure 138 mm[Hg] Garrett Zumbar [facility] 01-20-2023 11:55-0400 Diastolic blood pressure 94 mm[Hg] Garrett Zumbar [facility] 01-20-2023 11:55-0400 Heart rate 61 /min Garrett Zumbar [facility] 01-20-2023 11:55-0400 Respiratory rate 18 /min Garrett Zumbar [facility] 01-20-2023 11:55-0400 SaO2% (BldA) [Mass fraction] 99 % Garrett Zumbar [facility] 01-20-2023 11:55-0400 Systolic blood pressure 164 mm[Hg] Garrett Zumbar [facility] 01-20-2023 11:05-0400 Heart rate 53 /min Garrett Zumbar [facility] 01-20-2023 11:05-0400 SaO2% (BldA) [Mass fraction] 97 % Garrett Zumbar [facility] 01-20-2023 11:05-0400 Respiratory rate 18 /min Garrett Zumbar [facility] 01-20-2023 11:05-0400 Body temperature 98.06 [degF] Garrett Zumbar [facility] 01-20-2023 11:05-0400 Diastolic blood pressure 85 mm[Hg] Garrett Zumbar [facility] 01-20-2023 11:05-0400 Mean blood pressure 110 mm[Hg] [facility] [facility] 01-20-2023 11:05-0400 Systolic blood pressure 159 mm[Hg] Garrett Zumbar [facility] 12-17-2022 10:19-0400 Diastolic blood pressure 72 mm[Hg] Garrett Zumbar [facility] 12-17-2022 10:19-0400 Heart rate 59 /min Garrett Zumbar [facility] 12-17-2022 10:19-0400 Mean blood pressure 94 mm[Hg] Garrett Zumbar [facility] 12-17-2022 10:19-0400 Systolic blood pressure 138 mm[Hg] Garrett Zumbar [facility] 11-18-2022 13:18-0400 Heart rate 67 /min Garrett Zumbar [facility] 11-18-2022 13:18-0400 SaO2% (BldA) [Mass fraction] 99 % Garrett Zumbar [facility] 11-18-2022 13:18-0400 Diastolic blood pressure 77 mm[Hg] Garrett Zumbar [facility] 11-18-2022 13:18-0400 Mean blood pressure 104 mm[Hg] Garrett Zumbar [facility] 11-18-2022 13:18-0400 Systolic blood pressure 157 mm[Hg] Garrett Zumbar [facility] 11-18-2022 13:11-0400 Diastolic blood pressure 87 mm[Hg] Garrett Zumbar [facility] 11-18-2022 13:11-0400 Heart rate 72 /min Garrett Zumbar [facility] 11-18-2022 13:11-0400 Respiratory rate 14 /min Garrett Zumbar [facility] 11-18-2022 13:11-0400 SaO2% (BldA) [Mass fraction] 98 % Garrett Zumbar [facility] 11-18-2022 13:11-0400 Systolic blood pressure 144 mm[Hg] Garrett Zumbar [facility] 11-18-2022 12:20-0400 Heart rate 58 /min Garrett Zumbar [facility] 11-18-2022 12:20-0400 SaO2% (BldA) [Mass fraction] 98 % Garrett Zumbar [facility] 11-18-2022 12:20-0400 Diastolic blood pressure 73 mm[Hg] Garrett Zumbar [facility] 11-18-2022 12:20-0400 Mean blood pressure 98 mm[Hg] Garrett Zumbar [facility] 11-18-2022 12:20-0400 Systolic blood pressure 148 mm[Hg] Garrett Zumbar [facility] 11-18-2022 12:20-0400 Body temperature 98.06 [degF] Garrett Zumbar [facility] 11-18-2022 12:19-0400 Respiratory rate 12 /min Garrett Zumbar [facility] 11-11-2022 14:31-0400 Diastolic blood pressure 63 mm[Hg] Garrett Zumbar [facility] 11-11-2022 14:31-0400 Heart rate 66 /min Garrett Zumbar [facility] 11-11-2022 14:31-0400 Mean blood pressure 88 mm[Hg] Garrett Zumbar [facility] 11-11-2022 14:31-0400 Respiratory rate 14 /min Garrett Zumbar [facility] 11-11-2022 14:31-0400 Systolic blood pressure 137 mm[Hg] Garrett Zumbar [facility] 11-05-2022 09:43-0400 Diastolic blood pressure 73 mm[Hg] Garrett Zumbar [facility] 11-05-2022 09:43-0400 Heart rate 53 /min Garrett Zumbar [facility] 11-05-2022 09:43-0400 Mean blood pressure 95 mm[Hg] Garrett Zumbar [facility] 11-05-2022 09:43-0400 Respiratory rate 12 /min Garrett Zumbar [facility] 11-05-2022 09:43-0400 Systolic blood pressure 138 mm[Hg] Garrett Zumbar [facility] 10-20-2022 10:40-0500 Body height 160.02 cm Eder Gonzalez Other [facility] Other 10-20-2022 10:40-0500 Body mass index (BMI) [Ratio] 37.9 kg/m2 Eder Gonzalez Other [employer] Other 10-20-2022 10:40-0500 Body weight 97.07 kg Eder Gonzalez Other [employer] Other 10-20-2022 10:40-0500 Diastolic blood pressure 80 mm[Hg] Eder Gonzalez Other [employer] Other 10-20-2022 10:40-0500 Systolic blood pressure 114 mm[Hg] Eder Gonzalez Other [employer] Other 07-15-2022 10:05-0500 Body height 160 cm Braulio Garay MD Work Phone: [employer] 07-15-2022 10:05-0500 Body mass index (BMI) [Ratio] 37.73 kg/m2 Braulio Garay MD Work Phone: [employer] 07-15-2022 10:05-0500 Body temperature 96.21 [degF] Braulio Garay MD Work Phone: [employer] 07-15-2022 10:05-0500 Body weight 96.62 kg Braulio Garay MD Work Phone: [employer] 06-29-2020 13:38-0500 Pulse Oximetry 97 % Amilcar [place] , [place] 06-29-2020 08:34-0500 Body Temperature 99.7 [degF] Amilcar [employer] [facility] [place] 06-29-2020 08:34-0500 BP Diastolic 50 mm[Hg] Amilcar [employer] [facility] [place] [facility] [place] 06-29-2020 08:34-0500 BP Systolic 115 mm[Hg] Amilcar [employer] [facility] [place] 06-29-2020 08:34-0500 Pulse (Heart Rate) 90 /min Amilcar [place] 06-29-2020 08:34-0500 Respiratory Rate 16 /min Amilcar [employer] [facility] [place] 06-28-2020 06:00-0500 BMI (Body Mass Index) 36.31 kg/m2 Amilcar [place] 06-28-2020 06:00-0500 Body weight 92.99 kg Amilcar [place] 06-27-2020 07:25-0500 Height 160 cm [place] Encounters Encounter Date Encounter Type Care Provider Facility Start: 09-01-2023 End: 09-01-2023 ambulatory PARRISH KELBLEY Not Available Start: 08-30-2023 End: 08-30-2023 ambulatory RAMAN SILVERIO Not Available Start: 08-27-2023 End: 08-27-2023 Patient encounter procedure Noris Maya Solomon [facility] Start: 08-19-2023 ambulatory MURRAY [facility] Start: 08-19-2023 End: 08-19-2023 Subsequent hospital visit by physician Roni TAM Work Phone: [facility] Start: 07-26-2023 End: 07-27-2023 Encounter for other preprocedural examination BRAULIO [facility] Start: 07-26-2023 End: 07-27-2023 Evaluation and management of inpatient [facility] Start: 07-26-2023 End: 07-27-2023 Evaluation and management of inpatient Braulio Garay MD Work Phone: [facility] Comment on above: Status post revision of total replacement of left knee Start: 07-26-2023 End: 07-27-2023 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 Braulio Garay MD Work Phone: [facility] Start: 07-23-2023 End: 07-24-2023 ambulatory Jaci L Nathalie Facility:[facility] Start: 07-23-2023 End: 07-23-2023 Pain Management Louise Owusu [facility] Start: 07-12-2023 End: 07-13-2023 ambulatory Jaci L Nathalie Facility:[facility] Start: 07-12-2023 End: 07-12-2023 Lab Drop off Jaci L Nathalie [facility] Start: 07-01-2023 ambulatory [facility] Start: 06-30-2023 End: 07-01-2023 ambulatory DO Juwan Mendez Facility:[facility] Start: 06-30-2023 End: 06-30-2023 Pain Management Juwan Mendez [facility] Start: 06-28-2023 ambulatory Noris Warrenmally ty:[facility] Start: 06-23-2023 End: 06-24-2023 ambulatory Jaci L Nathalie Facility:[facility] Start: 06-22-2023 End: 06-23-2023 ambulatory Jaci L Nathalie Facility:[facility] Start: 06-10-2023 End: 06-11-2023 ambulatory Jaci L Nathalie Facility:[facility] Start: 06-10-2023 End: 06-10-2023 Pain Management Juwan Mendez [facility] Start: 05-27-2023 ambulatory Garrett Rodarteumbar Facility :[facility] Start: 05-12-2023 End: 05-13-2023 ambulatory DO Juwan Mendez Facility:[facility] Start: 05-06-2023 ambulatory SELF SELF [facility] Start: 05-06-2023 End: 05-06-2023 Office outpatient visit 40 minutes Braulio Garay MD Work Phone: [facility] Comment on above: Chronic pain of left knee (Primary Dx) Start: 04-28-2023 End: 04-29-2023 ambulatory Jaci L Nathalie Facility:[facility] Start: 04-28-2023 End: 04-28-2023 Pain Management Juwan Mendez [facility] Start: 04-02-2023 End: 04-03-2023 ambulatory Louise Owusu Facility:[facility] Start: 04-02-2023 End: 04-02-2023 Pain Management Louise Owusu [facility] Start: 03-03-2023 ambulatory LEON SOLARES [facility] Start: 03-03-2023 End: 03-03-2023 Office outpatient visit 15 minutes Braulio Garay MD Work Phone: [facility] Comment on above: Left knee pain, unsp ecified chronicity (Primary Dx); 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 joint, initial encounter Start: 03-03-2023 End: 03-03-2023 Subsequent hospital visit by physician Braulio Garay MD Work Phone: [facility] Start: 02-19-2023 End: 02-20-2023 ambulatory Louise Owusu Facility:[facility] Start: 02-19-2023 End: 02-19-2023 Pain Management Louisekia Owusu [facility] Start: 01-22-2023 End: 01-23-2023 ambulatory Jaci L Nathalie Facility:[facility] Start: 01-21-2023 ambulatory Garrett Zumbar Facility :[facility] Start: 01-20-2023 End: 01-21-2023 ambulatory Garrett Zumbar Facility:[facility] Start: 01-20-2023 End: 01-20-2023 Pain Management Garrett Zumbar [facility] Start: 12-17-2022 End: 12-18-2022 ambulatory Garrett Zumbar Facility:[facility] Start: 12-17-2022 End: 03-26-2023 Pre-admission assessment Garrett Zumbar [facility] Start: 12-17-2022 End: 12-17-2022 Pain Management Garrett Zumbar [facility] Start: 11-18-2022 End: 11-19-2022 ambulatory Garrett Zumbar Facility:[facility] Start: 11-18-2022 End: 11-18-2022 Pain Management Garrett Zumbar [facility] Start: 11-11-2022 End: 11-12-2022 ambulatory Garrett Zumbar Facility:[facility] Start: 11-11-2022 End: 11-11-2022 Pain Management Garrett Zumbar [facility] Start: 11-05-2022 End: 11-06-2022 ambulatory Garrett Zumbar Facility:[facility] Start: 11-05-2022 End: 11-06-2022 ambulatory Garrett Zumbar Facility:[facility] Start: 11-05-2022 End: 11-05-2022 Patient encounter procedure Garrett Rodarteumbar [facility] Start: 11-05-2022 End: 11-05-2022 Pain Management Garrett Rodarteumbar [facility] Start: 10-20-2022 End: 10-20-2022 ambulatory Eder Gonzalez Other [facility] Other Start: 10-20-2022 Office outpatient ne w 30 minutes Eder Gonzalez [facility] Start: 10-16-2022 End: 10-16-2022 ambulatory Eder Gonzalez Facility:[facility] Start: 10-16-2022 End: 10-16-2022 ambulatory MD Leon Solares Work Phone: [facility] Work Phone: Start: 10-16-2022 End: 10-16-2022 Patient encounter procedure MD Leon Solares Work Phone: [facility] Work Phone: Start: 09-28-2022 End: 09-29-[address] LEON SOLARES Facility:[facility] Start: 09-17-2022 End: 09-18-[address] LEON SOLARES Facility:[facility] Start: 09-15-2022 End: 09-16-[address] LEON SOLARES Facility:[facility] Start: 07-15-2022 End: 07-15-2022 Office outpatient new 30 minutes Braulio Garay MD Work Phone: [facility] Comment on above: 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 j oint, sequela (Primary Dx) Start: 07-15-2022 End: 07-15-2022 Subsequent hospital visit by physician Braulio Garay MD Work Phone: [facility] Start: 06-22-2022 End: 06-23-[address] LEON SOLARES Facility:[facility] Start: 06-27-2020 End: 06-29-2020 Evaluation and management of inpatient [facility] Start: 06-27-2020 End: 06-30-2020 Patient encounter procedure [facility] Start: 06-27-2020 End: 06-29-2020 Evaluation and management of inpatient Amilcar Thanh Yates Work Phone: [facility] Comment on above: Post-op pain (Primar y Dx) Start: 06-27-2020 End: 06-29-2020 Subsequent hospital visit by physician Amilcar Thanh Yates Work Phone: [facility] Comment on above: Pain Start: 06-20-2020 End: 06-23-2020 Patient encounter procedure ZACHARY BOLES [facility] Start: 06-20-2020 End: 06-22-2020 Subsequent hospital visit by physician Deep Xray Room 8 [facility] Comment on above: Pre-op examination Start: 12-15-2017 End: 12-15-2017 Ambulatory [facility] Facility:[facility] Start: 12-13-2017 End: 12-16-2017 Ambulatory Og Almeida Facility: [facility] Start: 11-27-2017 End: 12-02-2017 Ambulatory [facility] Facility:[facility] Procedures Date Procedure Procedure Detail Performing Clinician Start: 07-27-2023 Complete blood count with white cell differential, automated Roni Mercer APRN-LINE APPLIANCE ASSEMBLER Work Phone: Start: 07-27-2023 Renal function panel Mayra Weiss MD Work Phone: Start: 07-26-2023 Radiologic examinati on knee 1/2 views Roni Mercer CUSTOM TAILOR APPRENTICE-LINE APPLIANCE ASSEMBLER Work Phone: Start: 07-26-2023 End: 07-26-2023 Bacterial culture and sensitivity Braulio Garay MD Work Phone: Start: 07-26-2023 End: 07-26-2023 Culture bacterial any source anaerobic iso&id Braulio Garay MD Work Phone: Start: 07-26-2023 Gluc bld gluc mntr d ev cleared fda spec home use Braulio Garay MD Work Phone: Start: 07-26-2023 Blood group typing, RH phenotyping Braulio Garay MD Work Phone: Start: 06-30-2023 Injection of nerve r oot of lumbar spine using fluoroscopic guidance Louise Owusu Comment on above: No relief Start: 05-12-2023 Injection of sacroil iac joint using fluoroscopic guidance Juwan Mendez Comment on above: Left SIJI-50% relief x 2 weeks. Start: 01-20-2023 Injection of sacroil iac joint using fluoroscopic guidance Louise Owusu Comment on above: Left SIJI-100% x 2 w eeks Start: 11-18-2022 Injection of facet j oint using fluoroscopic guidance Garrett Dennison Comment on above: Left L5/S1 MBB 50% r elief Start: 10-16-2022 X-ray of lumbar spin e, six views including bending views MD Leon Solares Work Phone: Start: 07-15-2022 Cell count misc body fluids w/differential count Braulio Garay MD Work Phone: Start: 07-15-2022 SYNOVIAL FLUID CELL COUNT Braulio Garay MD Work Phone: Start: 07-15-2022 Arthrocentesis aspir &/inj major jt/bursa w/o us Braulio Garay MD Work Phone: Start: 08-16-2021 History of arthropla sty of left knee Garrett Dennison Start: 08-16-2020 Cataract surgery Pablo Dennison Start: 08-16-2020 History of spinal fusion Garrett Dennison Start: 06-28-2020 Radex spine lumbosac ral 2/3 views Amilcar H. Armin Work Phone: Start: 06-28-2020 BASIC METABOLIC PANE L W/ REFLEX TO MG FOR LOW K Amilcar H. Armin Work Phone: Start: 06-28-2020 Blood count complete auto&auto difrntl wbc Amilcar H. Armin Work Phone: Start: 06-27-2020 BASIC METABOLIC PANE L W/ REFLEX TO MG FOR LOW K Amilcar H. Armin Work Phone: Start: 06-27-2020 Blood count complete automated Amilcar H. Armin Work Phone: Start: 06-27-2020 Level iv surg pathol ogy gross&microscopic exam Amilcar H. Armin Work Phone: Start: 06-27-2020 Fluoroscopy during operation Amilcar H. Armin Work Phone: Start: 06-27-2020 End: 06-27-2020 Arthrodesis posterior interbody lumbar Amilcar H. Armin Work Phone: Start: 06-20-2020 Radex entir thrc lmb r crv sac spi w/skull 2/3 vw Zachary Boles Work Phone: Start: 08-16-2018 History of decompres martha of median nerve Garrett Dennison Start: 08-16-2011 History of surgical procedure on urinary bladder Garrett Dennison Start: 08-16-1998 Abdominal hysterectomy Garrett Dennison Start: 08-16-1998 Arthroscopy of knee Jean-Paul Dennison Start: 08-16-1986 History of repair of musculotendinous cuff of shoulder Garrett Dennison Start: 08-16-1985 Stripping of vein Alexi Normanar Start: 08-16-1983 Appendectomy Garrett Chris mbitalia Start: 08-16-1983 Cholecystectomy Garrett Dennison Start: 08-16-1957 History of tonsillectomy Garrett Dennison Colonoscopy Noris Solomon Comment on above: [facility] Plan of Treatment Date Care Activity Detail Author Start: 12-08-2023 End: 12-08-2023 Patient encounter procedure 12/08/2023 9:20 AM EDT Office Visit [facility] [address] [place] [phone] Braulio Garay MD [address] [place] [id number] [facility] Start: 09-09-2023 End: 09-09-2023 Patient encounter procedure 09/09/2023 10:00 AM EST Office Visit [facility] [address] [place] [phone] Roni Mercer, CUSTOM TAILOR APPRENTICE-LINE APPLIANCE ASSEMBLER [address] [place] [phone] [facility] Start: 08-19-2023 End: 08-19-2023 Patient encounter procedure 08/19/2023 11:40 AM EST Office Visit [facility] [address] [place] [phone] Roni Mercer, CUSTOM TAILOR APPRENTICE-LINE APPLIANCE ASSEMBLER [address] [place] [phone] [facility] Start: 04-16-2023 Influenza vaccination INFLUENZA VACC INE (#1) [facility] Start: 04-09-2023 Zoster vaccine hzv l cesar for subcutaneous use ZOSTER (SHINGLES) VACCINE (3 of 3) [facility] Start: 07-15-2022 End: 07-15-2023 REQUEST FOR MISC LAB SENDOUT [facility] Comment on above: Expected: 07/15/2022 , Expires: 07/15/2023 Start: 06-28-2021 Creatinine measurement Creatinine mo [place], [place] Start: 06-28-2021 Potassium monitoring Potassium monit [place], [place] Start: 06-20-2021 Creatinine measurement Creatinine mo [place], [place] Start: 06-20-2021 Potassium monitoring Potassium monit [place] Start: 11-08-2020 End: 11-08-2020 Office Visit 11/08/2020 Office Visit Neurosurgery Amilcar Yates MD [address] [place] [address], [address] [id number] [employer] Start: 07-19-2020 End: 07-19-2020 Office Visit 07/19/2020 Office Visit Neurosurgery Amilcar Yates MD [address] [place] [address], [address] [place], [place] [id number] [facility] Start: 06-27-2020 End: 06-27-2020 Hospital Encounter [facility] Comment on above: L4-5 DECOMPRESSION / PLIF (POSTERIOR LUMBAR INTERBODY FUSION). 2 HOURS / 1 C-ARM / CRUZ TABLE / NUVASIVE / SSEP / CELL SAVERS. REQUESTING 1ST CASE (PAT AT [place]) Start: 04-16-2020 Influenza vaccination Flu vaccine (# 1) [place], [place] Start: 2018 Pneumococcal 65+ yea rs Vaccine (1 of 1 - PPSV23) Pneumococcal 65+ years Vaccine (1 of 1 - PPSV23) [place], [place] Start: 2008 Screening for osteoporosis DEXA (modify frequency per FRAX score) [place], [place] Start: 2003 Screening for malign ant neoplasm of breast Breast cancer screen [place], [place] Start: 2003 Screening for malign ant neoplasm of colon Colon cancer screen colonoscopy [place], [place] Start: 2003 Shingles Vaccine (1 of 2) Shingles Vaccine (1 of 2) [place], [place] Start: 2003 Zoster vaccine hzv l cesar for subcutaneous use ZOSTER (SHINGLES) VACCINE (1 of 2) [facility] Start: 1998 Screening for malign ant neoplasm of colon COLORECTAL CANCER SCREENING DISCUSSION [facility] Start: 1993 Lipid panel [facility] Start: 1993 Screening for malign ant neoplasm of breast MAMMOGRAM SCREENING DISCUSSION [facility] Start: 1974 Screening for malign ant neoplasm of cervix CERVICAL CANCER SCREENING DISCUSSION [facility] Start: 1972 DTaP/Tdap/Td vaccine (1 - Tdap) DTaP/Tdap/Td vaccine (1 - Tdap) [place], [place] Start: 1972 Third diphtheria, tetanus and acellular pertussis (DTaP) vaccination TDAP (ADULT) [facility] Start: 1963 HbA1c (Bld) [Mass fraction] A1C test (Diabetic or Prediabetic) [place], [place] Start: 1953 Hepatitis C screening [facility] Start: 1953 Screening for osteoporosis DEXA SCAN DISCUSSION 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 Comment on above: Release Upon Orderin g for 1 Occurrences starting 07/26/2023 ANAEROBE CULTURE [facility] Bacteria identified in Body fluid by Culture BODY FLUID CULTURE AND DIRECT SMEAR Microbiology Today 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 joint, sequela 07/15/2022 10:53 AM EST 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, initial encounter Release Upon Ordering for 1 Occurrences starting 07/26/2023 [facility] Comment on above: Release Upon Orderin g for 1 Occurrences starting 07/26/2023 Bacterial culture an d sensitivity [employer] Continuous pulse oximetry Pulse oximetry, continuous Respiratory Care Routine Every 4hr until discontinued starting 06/27[facility]2020 [facility] Comment on above: Every 4hr until disc ontinued starting 06/27/2020 Fungus identified in Unspecified specimen by Culture FUNGUS CULTURE Microbiology Today 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 joint, sequela 07/15/2022 10:53 AM [employer] End: 07-26-2023 Fungus identified in Unspecified specimen by Culture [employer] Comment on above: Release Upon Orderin g for 1 Occurrences starting 07/26/2023 One Time for 1 Occur rences starting 07/26/2023 until 07/26/2023 Fungus identified in Unspecified specimen by Culture [employer] GLUCOSE BODY FLUID GLUCOSE BODY FLUID Fluids Routine 07/15/2022 10:53 AM [employer] Work Phone: Mycobacterium sp identified in Unspecified specimen by Organism specific culture ACID FAST CULTURE Microbiology Today 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 joint, sequela 07/15/2022 10:53 AM [employer] End: 07-26-2023 Mycobacterium sp identified in Unspecified specimen by Organism specific culture [employer] Comment on above: Release Upon Orderin g for 1 Occurrences starting 07/26/2023 One Time for 1 Occur rences starting 07/26/2023 until 07/26/2023 Mycobacterium sp identified in Unspecified specimen by Organism specific culture [employer] Oxygen therapy [[facility] Data Set] Initiate Oxygen Therapy Protocol Respiratory Care Routine Daily until discontinued starting 06/27/2020 [facility] Comment on above: Daily until disconti nued starting 06/27/2020 Radiography for bone length studies XR BONE LENGTH STUDY Imaging Routine 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 joint, sequela 07/15/2022 9:23 AM [employer] Spirometry panel Incentive carly metry Respiratory Care Routine Every 2hr while awake until discontinued starting 06/27/2020 [facility] Comment on above: Every 2hr while awak e until discontinued starting 06/27/2020 Surgical Pathology Surgical Path ology Lab Routine Release Upon Ordering for 1 Occurrences starting 06/27/2020 [facility] Comment on above: Release Upon Orderin g for 1 Occurrences starting 06/27/2020 SYNOVIAL FLUID CELL COUNT SYNOVIAL FLUID CELL COUNT Fluids Today 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 joint, sequela 07/15/2022 10:53 AM [facility] [employer] XR Knee - left 3 Views XR KNEE L EFT 3 VIEWS Imaging Routine 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 joint, sequela 07/15/2022 9:23 AM EST [employer] XR Knee - left 3 Views XR KNEE L EFT 3 VIEWS Imaging Routine Left knee pain, unspecified chronicity 03/03/2023 2:45 PM EDT [employer] XR Knee - left 3 Views XR KNEE L EFT 3 VIEWS Imaging Routine Hx of total knee arthroplasty, left 08/19/2023 11:32 AM EST [employer] XR Knee - left 4 Views XR KNEE L EFT 4+ VIEWS Imaging Routine Left knee pain, unspecified chronicity Ordered: 02/18/2023 [employer] Comment on above: Ordered: 02/18/2023 Immunizations Immunization Date Immunization Notes Care Provider [facility] 06-16-2023 influenza virus vacc ine, unspecified formulation Jaci Zelaya [facility] 06-16-2023 zoster vaccine recombinant [facility] [facility] 02-12-2023 SARS-CoV-2 (COVID-19 ) mRNAMUL.ORD![id number] [employer] [facility] 02-12-2023 zoster vaccine, live [employer] [facility] 02-12-2023 zoster vaccine, unspecified formulation Braulio Garay MD [facility] 06-08-2022 influenza virus vacc ine, unspecified formulation [employer] [facility] 06-08-2022 SARS-CoV-2 (COVID-19 ) mRNAMUL.ORD![id number] [employer] [facility] 11-28-2021 SARS-CoV-2 mRNA (onxocccxptt-raod-keilacs ) vaccine [employer] [facility] 06-24-2021 influenza virus vacc ine, unspecified formulation Louise Ostrovok [facility] 05-15-2021 SARS-CoV-2 (COVID-19 ) mRNA BNT-162b2 vax Louise Ostrovok [facility] Comment on above: Result Comment: 2022: [id number] 10-18-2020 SARS-CoV-2 (COVID-19 ) mRNA BNT-162b2 vax Louise Ostrovok [facility] 09-27-2020 SARS-CoV-2 (COVID-19 ) mRNA BNT-162b2 vax Louise Ostrovok [facility] 05-08-2020 influenza virus vacc ine, unspecified formulation Louise Ostrovok [facility] 05-08-2020 Influenza, High-dose , Quadv, 65 yrs +, IM (Fluzone) [facility], [place] 05-08-2020 pneumococcal polysaccharide vaccine, 23 valent [facility] 06-27-2019 influenza virus vacc ine, unspecified formulation Louise Ostrovok [facility] 06-27-2019 influenza, high dose seasonal, preservative-free [facility] [place] 10-09-2018 pneumococcal conjuga te vaccine, 13 valent [facility] 09-07-2018 pneumococcal polysaccharide vaccine, 23 valent Louise Ostrovok [facility] 05-16-2018 influenza virus vacc ine, unspecified formulation Louise Ostrovok [facility] 05-17-2017 influenza virus vacc ine, unspecified formulation Louise Ostrovok [facility] 07-05-2014 influenza virus vacc ine, unspecified formulation Louise Ostrovok [facility] Payers Date Payer Category Payer Self-pay [id number] 2022 Medicare MEDICARE MEDICAR E A AND B [id number] 2022-Present [address] [place] [address] [id number]. [id number] 2018 Unknown GENERIC PAYOR ME DICARE SUPPLEMENT [id number] 2018-Present [phone] [address] [place] [address] [id number]. [id number] 2017 Unknown [id number] 1959 Medicare [id number] 1.2.840.469204.1.13.239.2.7.3. [id number] 1959 Unknown [id number] 1.2.840.267831.1.13.239.2.7.3. [id number] 1953 Unknown [id number] 2.16.840.1.257765.3.579.2.182 1953 Unknown [id number] 2.16.840.1.691067.3.579.2.182 1953 Unknown [id number] 2.16.840.1.535500.3.579.2.182 1953 Unknown [id number] 2.16.840.1.033433.3.579.2.593 1953 Unknown [id number] 2.16.840.1.824646.3.579.2.593 1953 Unknown [id number] 2.16.840.1.921739.3.579.2.593 1953 Unknown [id number] 2.16.840.1.204385.3.579.2.593 1953 Unknown [id number] 2.16.840.1.757116.3.579.2.727 1953 Unknown [id number] 2.16.840.1.994062.3.579.2.72 1953 Unknown [id number] 2.16.840.1.716279.3.579.2.72 1953 Unknown [id number] 2.16.840.1.775046.3.579.2.72 1953 Unknown [id number] 2.16.840.1.453875.3.579.2.72 1953 Unknown [id number] 2.16.840.1.132850.3.579.2.72 1953 Unknown [id number] 2.16.840.1.781469.3.579.2.72 1953 Unknown [id number] 2.16.840.1.602065.3.579.272 1953 Unknown [id number] 2.16.840.1.780954.3.579.2.72 1953 Unknown [id number] 2.16.840.1.147652.3.579.2.72 1953 Unknown [id number] 2.16.840.1.412660.3.579.2.72 1953 Unknown [id number] 2.16.840.1.669619.3.579.2.72 1953 Unknown [id number] 2.16.840.1.105505.3.579.2.72 1953 Unknown [id number] 2.16.840.1.315032.3.579.2.72 1953 Unknown [id number] 2.16.840.1.129020.3.579.2.727 1953 Unknown [id number] 2.16.840.1.625250.3.579.2.727 1953 Unknown [id number] 2.16.840.1.961008.3.579.2.727 1953 Unknown [id number] 2.16.840.1.388156.3.579.2.727 1953 Unknown [id number] 2.16.840.1.915011.3.579.2.727 1953 Unknown [id number] 2.16.840.1.916173.3.579.2.727 1953 Unknown [id number] 2.16.840.1.260244.3.579.2.983 1953 Unknown [id number] 2.16.840.1.779717.3.579.2.983 1953 Unknown [id number] 2.16.840.1.554469.3.579.2.983 1953 Unknown [id number] 2.16.840.1.835256.3.579.2.983 1953 Unknown [id number] 2.16.840.1.937193.3.579.2.983 1953 Unknown [id number] 2.16.840.1.685960.3.579.2.983 1953 Unknown [id number] 2.16.840.1.919196.3.579.2.983 1953 Unknown [id number] 2.16.840.1.330441.3.579.2.1259 1953 Unknown [id number] 2.16.840.1.593773.3.579.2.1259 Unknown [id number] 2.16.840.1.620346.3.579.2.531 Social History Date Type Detail Facility Start: 06-20-2020 End: 08-27-2023 Tobacco smoking status NHIS Never smoker [place], [place] History of tobacco use Cigarette Smoker M [place], [place] History of tobacco use Cigar Smoker [place] Start: 06-20-2020 End: 07-15-2022 Tobacco use and exposure Never used [place] Start: 06-20-2020 History SDOH Food Worry 1 [place] Start: 06-20-2020 History SDOH Transpo rt Med 2 [place] Start: 1955 Sex Assigned At Not on file M [place], [place] Exposure to SARS-CoV -2 (event) Not sure [place] Start: 07-15-2022 End: 08-19-2023 Alcohol intake Current drinker of alcohol (finding) [facility] Start: 07-15-2022 Alcohol Comment occasional [facility] Start: 1955 Sex Assigned At Female F [facility] Start: 03-03-2023 End: 07-26-2023 Sex Assigned At [facility] Tobacco smoking status No Smokin g Status Entered [facility] Tobacco smoking status Never [facility] Start: 03-03-2023 End: 07-26-2023 History of Social function [facility] Start: 05-19-2022 Gender identity Identifies as female gender (finding) [facility] Start: 05-19-2022 Sexual orientation Heterosexual (fin jerod) [facility] Has the Where, [employer], [employer], or water [employer] threatened to shut off services in your home in past 12Mo No [facility] (I/We) worried wheth er (my/our) food would run out before (I/we) got money to buy more. Never true [facility] Start: 06-23-2023 Alcohol Comment wine once a month [facility] Medical Equipment Procedure Code Equipment Code Equipment Original Text Equipment Identifier Dates Impl Gildardo Spine R tico Ti35 Mm 55 Mm [id number] Start: 06-27-2020 Graft Bne Sub 30 cc 1.7-10mm Canc Chip Morselized Frz Dry - [id number] Start: 06-27-2020 Graft Bne Sub 5m l Mtrx Cellular Osteocel + - [id number] Start: 06-27-2020 Screw Spnl L50mm Dia6.5mm Post Thoracolumbosacral Polyax 2s [id number] Start: 06-27-2020 Screw Spnl Dia5. 5mm Opn Tulip Steven Reline [id number] Start: 06-27-2020 Screw Spnl L55mm Dia6.5mm Post Thoracolumbosacral Polyax 2s [id number] Start: 06-27-2020 Coalesce Lumbar Interbody Fusion System [id number] 8deg Lordosis [id number] Start: 06-27-2020 Palacos R+G 1x40 Single With Gentamicin - [id number] Start: 07-26-2023 Attune Knee Syst em Revision Crs Rotating Platform Insert Size 5 12mm Aox [id number] Start: 07-26-2023 Functional Status Date Assessment Result Facility 08-27-2023 Functional Status N/A [facility] 07-23-2023 Functional Status N/A [facility] 06-30-2023 Functional Status N/A [facility] 06-10-2023 Functional Status N/A [facility] 04-28-2023 Functional Status N/A [facility] 04-02-2023 Functional Status N/A [facility] 02-19-2023 Functional Status N/A [facility] 01-20-2023 Functional Status N/A [facility] 12-17-2022 Functional Status N/A [facility] 11-18-2022 Functional Status N/A [facility] 11-11-2022 Functional Status N/A [facility] 11-05-2022 Functional Status N/A [facility] Clinical Notes 07-15-2022 to 08-27-2023 Nursing Notes - Zoila Todd RN - 07/27/2023 3:10 PM ESTNursing Notes - Zoila Todd RN - 07/27/2023 1:49 PM ESTNursing Notes - Zoila Todd RN - 07/27/2023 1:08 PM ESTAttachments Note Date & Type Note Facility 08-27-2023 Hospital Discharg e instructions Patient Education 08/27/2023 08:27:48 Colonoscopy, Adult Colonoscopy, Adult A colonoscopy is a procedure to look at the entire large intestine. This procedure is done using a long, thin, flexible tube that has a camera on the end. You may have a colonoscopy: As a part of normal colorectal screening. If you have certain symptoms, such as: ?A low number of red blood cells in your blood (anemia). ?Diarrhea that does not go away. ?Pain in your abdomen. ?Blood in your stool. A colonoscopy can help screen for and diagnose medical problems, including: An abnormal growth of cells or tissue (tumor). Abnormal growths within the lining of your intestine (polyps). Inflammation. Areas of bleeding. Tell your health care provider about: Any allergies you have. All medicines you are taking, including vitamins, herbs, eye drops, creams, and sqme-giv-oafawgo medicines. Any problems you or family members have had with anesthetic medicines. Any bleeding problems you have. Any surgeries you have had. Any medical conditions you have. Any problems you have had with having bowel movements. Whether you are or may be . What are the risks? Generally, this is a safe procedure. However, problems may occur, including: Bleeding. Damage to your intestine. Allergic reactions to medicines given during the procedure. Infection. This is rare. What happens before the procedure? Eating and drinking restrictions Follow instructions from your health care provider about eating or drinking restrictions, which may include: A few days before the procedure: ?Follow a low-fiber diet. ?Avoid nuts, seeds, dried fruit, raw fruits, and vegetables. 1 3 days before the procedure: ?Eat only gelatin dessert or ice pops. ?Drink only clear liquids, such as water, clear juice, clear broth or bouillon, black coffee or tea, or clear soft drinks or sports drinks. ?Avoid liquids that contain red or purple dye. The day of the procedure: ?Do not eat solid foods. You may continue to drink clear liquids until up to 2 hours before the procedure. ?Do not eat or drink anything starting 2 hours before the procedure, or within the time period that your health care provider recommends. Bowel prep If you were prescribed a bowel prep to take by mouth (orally) to clean out your colon: Take it as told by your health care provider. Starting the day before your procedure, you will need to drink a large amount of liquid medicine. The liquid will cause you to have many bowel movements of loose stool until your stool becomes almost clear or light green. If your skin or the opening between the buttocks (anus) gets irritated from diarrhea, you may relieve the irritation using: ?Wipes with medicine in them, such as adult wet wipes with aloe and vitamin E. ?A product to soothe skin, such as petroleum jelly. If you vomit while drinking the bowel prep: ?Take a break for up to 60 minutes. ?Begin the bowel prep again. ?Call your health care provider if you keep vomiting or you cannot take the bowel prep without vomiting. To clean out your colon, you may also be given: ?Laxative medicines. These help you have a bowel movement. ?Instructions for enema use. An enema is liquid medicine injected into your rectum. Medicines Ask your health care provider about: Changing or stopping your regular medicines or supplements. This is especially important if you are taking iron supplements, diabetes medicines, or blood thinners. Taking medicines such as aspirin and ibuprofen. These medicines can thin your blood. Do not take these medicines unless your health care provider tells you to take them. Taking ivpf-zrx-loysvnq medicines, vitamins, herbs, and supplements. General instructions Ask your health care provider what steps will be taken to help prevent infection. These may include washing skin with a germ-killing soap. If you will be going home right after the procedure, plan to have a responsible adult: ?Take you home from the hospital or clinic. You will not be allowed to drive. ? Care for you for the time you are told. What happens during the procedure? An IV will be inserted into one of your veins. You will be given a medicine to make you fall asleep (general anesthetic). You will lie on your side with your knees bent. A lubricant will be put on the tube. Then the tube will be: ?Inserted into your anus. ?Gently eased through all parts of your large intestine. Air will be sent into your colon to keep it open. This may cause some pressure or cramping. Images will be taken with the camera and will appear on a screen. A small tissue sample may be removed to be looked at under a microscope (biopsy). The tissue may be sent to a lab for testing if any signs of problems are found. If small polyps are found, they may be removed and checked for cancer cells. When the procedure is finished, the tube will be removed. The procedure may vary among health care providers and hospitals. What happens after the procedure? Your blood pressure, heart rate, breathing rate, and blood oxygen level will be monitored until you leave the hospital or clinic. You may have a small amount of blood in your stool. You may pass gas and have mild cramping or bloating in your abdomen. This is caused by the air that was used to open your colon during the exam. If you were given a sedative during the procedure, it can affect you for several hours. Do not drive or operate machinery until your health care provider says that it is safe. It is up to you to get the results of your procedure. Ask your health care provider, or the department that is doing the procedure, when your results will be ready. Summary A colonoscopy is a procedure to look at the entire large intestine. Follow instructions from your health care provider about eating and drinking before the procedure. If you were prescribed an oral bowel prep to clean out your colon, take it as told by your health care provider. During the colonoscopy, a flexible tube with a camera on its end is inserted into the anus and then passed into all parts of the large intestine. This information is not intended to replace advice given to you by your health care provider. Make sure you discuss any questions you have with your health care provider. Document Revised: 07/27/2022 Document Reviewed: 03/25/2022 [employer] Patient Education 2022 [employer]. Follow Up Care 08/27/2023 08:24:29 With:Noris Solomon CNP Address: When:1 to 2 weeks Comments:Following colonoscopy. [facility] 07-27-2023 Miscellaneous Notes Discharge instructions given to patient and spouse. Including diagnosis information, new medication information, physical prescriptions, and drain/device handouts. Hemovac and OnQ teaching completed. Srit-rv-uyxm given to patient; integrity seal intact. Denies questions at this time. IV and tele removed. Wheeled patient out to front doors to waiting family car. AVS, physical prescriptions, continuity of care, and medication information faxed to [facility] at this time. No changes noted from previous assessment by this RN except what is detailed in coordinating flow sheets. Patient denies needs at this time. Call light is in reach. Patient laying down upon this RN arrival to patient room. Patient alert, respirations even and unlabored. Arouses easily to voice. Routine shift assessment initiated, detailed in coordinated flow sheets. Denies additional needs at this time. Call light is within reach, bed is in the lowest position, side rails up x2, and bed alarm is on. Pt assessment remains unchanged with any exceptions noted in flowsheets. Ice pack applied to left knee. Pt c/o 5/10 pain to left knee. Scheduled Tylenol and Toradol given - see OCT. Pt denies any further needs at this time. Call light within reach. Pt assessment remains unchanged with any exceptions noted in flowsheets. Ice pack applied to left knee. Pt c/o 6/10 pain to left knee. Scheduled Tylenol and Toradol given - see MAR. Pt denies any further needs at this time. Call light within reach. Pt assessment complete and documented in flowsheets. POC reviewed with pt. Ice pack applied to left knee. Pt denies any pain or needs at this time. Call light within reach. Patient to procedure at this time. Patient arrived to room 3755 at this time. Oriented to room and provided call light. Admission assessment initiated along with initial vital signs and weight. Additional information can be found in coordinating flow sheets. Pre-op prep being done by [employer] WORK[employer]. No additional needs at this time, call light in reach, side rails up x3, at bedside. 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 Independent Concerns With Patient Being Able To Care For Themselves At Discharge? Has Assistance (Friend, Family, Skilled Provider) Can Support Person Meet The Care Needs Of The Patient? Yes Employment/Financial Employed? Retired Initial Discharge Planning Patient Goal for Discharge Return home with assistance from family and friends Initial Discharge Planning DME (CARD WRITER HAND) Straight cane;Walker Anticipated discharge disposition Home with Home Health Anticipated Services at Discharge Physical Therapy;Group Home CM met with patient this date to discuss post-surgical discharge plans. Patient states that she would like to return home with [facility] and would later like to go to outpatient therapy at [facility] in [place]. Patient has a wheeled walker, instructed to bring with her on the day of surgery. Patient denies any other questions or needs at this time. CM to continue to follow and assist with discharge plans. documented in this encounter [facility] 07-27-2023 Nurse Note Discharge instructions given to patient and spouse. Including diagnosis information, new medication information, physical prescriptions, and drain/device handouts. Hemovac and OnQ teaching completed. Esyg-df-lqba given to patient; integrity seal intact. Denies questions at this time. IV and tele removed. Wheeled patient out to front doors to waiting family car. [facility] 07-27-2023 Nurse Note AVS, physical prescriptions, continuity of care, and medication information faxed to [facility] at this time. [facility] 07-27-2023 Nurse Note No changes noted from previous assessment by this RN except what is detailed in coordinating flow sheets. Patient denies needs at this time. Call light is in reach. [facility] 07-27-2023 History of Presen t illness Narrative 07/27/23 0815 Time In/Out Time In 0815 Time Out 0943 Total Visit Time 88 minutes Subjective RN Approved Intervention as tolerated Existing Precautions/Restrictions fall;weight bearing (TTWB, gentle ROM no restriction on range) Subjective Reports Pt sitting in bedside chair upon arrival this session. Pt agreeable for therapy and pt states mild pain in L knee with no value given Cognitive Status Examination Orientation Status (Cognition) oriented x 4 Level of Consciousness alert Able to Follow Commands (Communication) WFL Personal Safety and Judgment intact General Pain Documentation (Adult, OB, Peds) Presence of Pain complains of pain/discomfort Pain Location knee, right Pain Management Interventions cold application Select Pain Scale (Pt did not rate pain.) Objective Therapeutic Interventions Pt sitting in bedside chair upon arrival this session. Pt agreeable for therapy and pt began with bed mobility transfer from lying supine to sitting up at EOB with SBA. Pt then completed STS following visual demo for proper technique with managaing TTWB on L LE. Pt then ambulated into bathroom for approx 10ft with slow swing to pattern with no LOB noted and managing TTWB well on L LE. P able to use bathroom indpendently including standing at sink to wash hands. Pt then ambulated to therapy room for approx 75ft with slow swing to pattern with no LOB noted. Pt entered therapy room and practiced modified car transfer with pt using good technique. Pt then practiced steps x4 stairs with B axillary crutches with TTWB on L LE with min verbal cues for proper sequencing with CGA and no LOB noted. Pt then transfered to lying on mat table and pt completed all protocol exercises including LAQs, ankle pumps, QS, GS, SAQs, and SLRs x10 reps each. Knee ext stretches with heel propped, calf stretches with belt x10 reps x10 holds, and heel slides with gentle ROM only with ROM measuring at 0-80 degrees this session. Pt then ambulated back to room for an additional 75ft with TTWB on L LE. Pt retunred to room and pt transfered to sitting in bedside chair with LEs elevated and ice pack applied to L knee. Call light left within reach. Communication CARD WRITER HAND provided pt with B axillary crutches and adjusted for proper height Bed Mobility Skill: Supine to Sit, Rehab Eval Level of [place]: Supine/Sit stand-by assist Physical Assist/Nonphysical Assist: Supine/Sit 1 person assist Transfer Skill: Sit To Stand, Rehab Eval [place] (Sit-Stand Transfers) contact guard Physical Assist/Nonphysical Assist: Sit/Stand 1 person assist Weight-Bearing Restrictions: Sit/Stand toe touch weight-bearing Assistive Device For Transfer: Sit/Stand 2 wheeled walker Gait Skills, PT Eval Level of [place]: Gait contact guard Physical Assist/Nonphysical Assist: Gait 1 person assist Weight-Bearing Restrictions: Gait toe touch weight-bearing Assistive Device For Transfer: Gait 2 wheeled walker Gait Distance (10ft, 75ft x2) Gait Analysis, PT Eval Gait Pattern Used swing-to gait Stair Negotiation [place] Level: Stair Negotiation contact guard assist Physical Assist: Stair Negotiation (1 person) Weight-Bearing Restrictions: Stair Negotiation toe touch weight-bearing Assistive Device: Stair Negotiation axillary crutches (Also demonstrated proper technique with navigating curb step with walker with TTWB) Number of stairs 4 Stair Railings no rail Plan Plan for next visit Cont with protocol ex, gentle ROM, and mobility Maintain frequency yes Patient was assessed in [facility] on 07/01/23. Met with patient and spouse for follow up after surgery to discuss discharge plan. Patient to return home with spouse and [facility]. Patient has a wheeled walker and denies any equipment needs at this time. Nursing reports that the incision has been closed with derrick with hemovac in place, will request a 3 week follow up appointment. Patient denies any other questions or needs at this time. Referral sent to [facility], staff confirms start of care for tomorrow. Follow up appointment scheduled for 08/19/22 @ 11:40 am. Summary: RD Progress Note NUTRITION ASSESSMENT: POST-OP ORTHOPEDIC Nutrition Assessment Will order Ensure Max @ 10 AM. Pt would benefit from the additional kcal, protein, vitamins, and minerals to help meet increased nutrition needs based on recent orthopedic surgery with Dr. Garay. Recommend to continue supplementation at home for 2-4 weeks after surgery. Anthropometrics: Ht Readings from Last 1 Encounters: 07/26/23 1.6 m (5' 3 ) Wt Readings from Last 5 Encounters: 07/26/23 87.4 kg (192 lb 9.6 oz) 07/01/23 85.3 kg (188 lb) 05/06/23 91.4 kg (201 lb 6.4 oz) 03/03/23 98.4 kg (217 lb) 07/15/22 96.6 kg (213 lb) [place] body weight: 52.4 kg (115 lb 8.3 oz) Adjusted ideal body weight: 66.4 kg (146 lb 5.6 oz) Body mass index is 34.12 kg/m . Nutrition Intake: Current Diet Orders Procedures DIET CARB CONTROLLED Standing Status: Standing Number of Occurrences: 1 Allergies Allergen Reactions Mobic [Meloxicam] Diarrhea and Dyspepsia Amoxicillin Swelling Labs: Lab Results Component Value Date GLUCOSE 124 (H) 07/27/2023 GLUCOSE 85 07/26/2023 GLUCOSE 137 (H) 07/01/2023 HGBA1C 5.7 07/01/2023 SODIUM 138 07/27/2023 POTASSIUM 4.6 07/27/2023 PHOSPHORUS 4.0 07/27/2023 CALCIUM 8.6 07/27/2023 ALBUMIN 3.5 07/27/2023 TP 7.3 07/01/2023 BUN 17 07/27/2023 CREATSERUM 0.60 (L) 07/27/2023 AST 29 07/01/2023 ALT 25 07/01/2023 HGB 10.6 (L) 07/27/2023 HCT 34.0 (L) 07/27/2023 WBC 11.3 (H) 07/27/2023 RBC 4.08 07/27/2023 PMH & PSH: Past Medical History: Diagnosis Date Arthritis Back pain chronic pain since surgery Essential hypertension, benign Floaters, bilateral Ringing in right ear Past Surgical History: Procedure Laterality Date ARTHROPLASTY KNEE TOTAL Left 08/20/2021 ARTHROPLASTY KNEE TOTAL Right 2018 BLADDER SURGERY 2018 prolapsed APPENDECTOMY ARTHROSCOPY KNEE Right times three BACK SURGERY Spinal fusion 2020 lumbar HYSTERECTOMY RELEASE CARPAL TUNNEL Left REMOVAL CATARACT (PEM) Bilateral SHOULDER SURGERY Right Rotator Nutrition Diagnosis NI-5.1 Increased protein needs related to increased demand for protein as evidenced by s/p orthopedic surgery. Interventions Order Ensure Max @ 10 AM Diet order: Carb Controlled Monitoring & Evaluation PO intake, labs, weight, ONS intake, and medical condition Low nutritional risk. Reassess in 7 days. Available by consult. VELVET Kan Registered Dietitian, Licensed Dietitian 07/27/23 07/26/23 183 Time In/Out Time In 1830 Time Out 1900 Total Visit Time 30 minutes PT Therapy Completed Yes Initial Evaluation/Screen Completed? 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 Surgical Procedure L TKA revision Past Medical History Past Medical History: Diagnosis Date Arthritis Back pain chronic pain since surgery Essential hypertension, benign Floaters, bilateral Ringing in right ear Past Surgical History Past Surgical History: Procedure Laterality Date ARTHROPLASTY KNEE TOTAL Left 08/20/2021 ARTHROPLASTY KNEE TOTAL Right 2018 BLADDER SURGERY 2018 prolapsed APPENDECTOMY ARTHROSCOPY KNEE Right times three BACK SURGERY Spinal fusion 2020 lumbar HYSTERECTOMY RELEASE CARPAL TUNNEL Left REMOVAL CATARACT (PEM) Bilateral SHOULDER SURGERY Right Rotator Existing Precautions/Restrictions fall;range of motion;weight bearing (gentle ROM as tolerated, TTWB on L LE) Left Lower Extremity toe touch weight bearing Home Setting Residence House Lives With spouse Second floor setup bedroom Number of stairs to enter home 4 Number of stairs in home 12 Stair Railings at Home entry - with rail;interior - with rail Mobility Equipment Available 2 wheeled walker Home Environment Details Pt plans to stay on the main level when returning home Previous Level of Function Ambulation Skills independent Assistive Device none used Level of Ambulation community General Pain Documentation (Adult, OB, Peds) Presence of Pain complains of pain/discomfort Pain Location knee, left Pain Management Interventions activity minimized Select Pain Scale (6/10) Cognitive Status Examination Orientation Status (Cognition) oriented x 4 Level of Consciousness alert Able to Follow Commands (Communication) WFL Personal Safety and Judgment intact Range of Motion (ROM) Range of Motion Examination deficits as listed below (L knee ROM 0-50 degrees) Manual Muscle Testing (MMT) Manual Muscle Testing Results deficits as listed below (L knee 4-/5) Bed Mobility Skill: Supine to Sit, Rehab Eval Level of [place]: Supine/Sit stand-by assist Physical Assist/Nonphysical Assist: Supine/Sit 1 person assist Transfer Skill: Sit To Stand, Rehab Eval [place] (Sit-Stand Transfers) minimum assist (75% patient effort) Physical Assist/Nonphysical Assist: Sit/Stand 1 person assist Weight-Bearing Restrictions: Sit/Stand toe touch weight-bearing Assistive Device For Transfer: Sit/Stand 2 wheeled walker Gait Skills, PT Eval Level of [place]: Gait contact guard Physical Assist/Nonphysical Assist: Gait 1 person assist Weight-Bearing Restrictions: Gait toe touch weight-bearing Assistive Device For Transfer: Gait 2 wheeled walker Gait Distance 5 feet Gait Analysis, PT Eval Gait Pattern Used swing-to gait Balance Additional Documentation (Seated: Good; Standing: Fair-) Sensory Examination Sensory Examination (pt reporting L foot numbness) Plan of Care Interventions Planned Therapy Interventions balance training;edema control;endurance;gait training;ROM;strengthening;stret [place];transfer training Additional Comments Pt performed glut sets, quad sets, heel slides, SAQ, SLR, and ankle pumps on the L LE for 1x10. Pt educated on sequencing for transfers and gait using FWW to maintain TTWB. Pt having difficulty with ambulation due to numbness and pain. Assessment Assessment Narrative Pt is a 68 year old female s/p L TKA revision. Pt is doing fair post op. Pt reports increased pain that worsens with activity. Pt demonstrates muscle tightness around the L knee and weakness. ROM completed to tolerance without any overpressure. Pt has low tolerance to knee movement and therefore poor ROM. Pt with numbness in the L foot resulting in difficulty maintaining weight bearing status. Pt is expected to improve and should be safe to return home. Discharge Recommendations Pt to return home with PT services. Clinical Impression Co-evaluation/co-treatment performed? Yes, combination of simultaneous billable and individual billable skilled care was necessary due to medical complexity and functional deficits Criteria for Skilled Therapeutic Interventions Met (PT Eval) yes, treatment indicated Impairments Found (PT Eval) Strength;ROM (range of motion);Balance;Transfers;Gait/L ocomotion;Edema;Aerobic capacity/endurance Rehab Potential (PT Eval) good Therapy Frequency 7 times a week PT Therapies Still to Complete 5 Continue care plan yes Today's Treatment Included PT evaluation, ther ex, gait and patient education Therapist Recommendations At Discharge Recommendations PT Services recommended at Discharge Plan Plan for next session Next visit progress mobility and ROM, practice car transfers and steps, and review/perform HEP. PT Goals: 1. Patient will perform all transfers with mod I to ensure safety at discharge. 2. Pt will ambulate 200 ft with FWW and mod I to ensure safety with household ambulation. 3. Pt will increase surgical knee ROM to 0-90 degrees. 4. Pt will perform a modified car transfer with SB assist to ensure patient will be safe when leaving home. 5. Pt will ambulate up and down 4 steps with rail and SB assist to ensure safety in and out of home. 6. Pt will be independent with HEP per total joint binder in order to continue with ROM progression at home. 7. Pt will demonstrate understanding of proper procedures for edema control. 07/26/23 3988 Time In/Out Time In 1847 Initial Evaluation/Screen Completed? yes General Information RN Approved Intervention as tolerated Past Surgical History Past Surgical History: Procedure Laterality Date ARTHROPLASTY KNEE TOTAL Left 08/20/2021 ARTHROPLASTY KNEE TOTAL Right 2017 BLADDER SURGERY 2018 prolapsed APPENDECTOMY ARTHROSCOPY KNEE Right times three BACK SURGERY Spinal fusion 2020 lumbar HYSTERECTOMY RELEASE CARPAL TUNNEL Left REMOVAL CATARACT (PEM) Bilateral SHOULDER SURGERY Right Rotator Past Medical History Past Medical History: Diagnosis Date Arthritis Back pain chronic pain since surgery Essential hypertension, benign Floaters, bilateral Ringing in right ear Existing Precautions/Restrictions fall;weight bearing (TTWB, gentle ROM) Previous Level of Function Bed Mobility/Transfers independent Bathing independent Upper Body Dressing independent Lower Body Dressing independent Grooming independent Toileting independent Eating independent Home Management Skills independent General Pain Documentation (Adult, OB, Peds) Presence of Pain complains of pain/discomfort Pain Location knee, left Pain Management Interventions cold application Select Pain Scale (5-6/10) Home Setting Residence House Lives With spouse First floor setup bedroom;tub shower;grab bars Number of Stairs to Enter Home 3 Number of Stairs Within Home 1 Equipment Available straight cane;wheeled walker;shower chair (high rise toilet) Cognitive Status Examination Orientation Status (Cognition) oriented x 4 Level of Consciousness alert Able to Follow Commands (Communication) WFL Personal Safety and Judgment intact Sensory Examination Sensory Examination (numbness in left foot) Range of Motion (ROM) Range of Motion Examination bilateral upper extremity ROM was WFL Manual Muscle Testing (MMT) Dominant Hand right Bed Mobility Skill: Supine to Sit, Rehab Eval Level of [place]: Supine/Sit stand-by assist Physical Assist/Nonphysical Assist: Supine/Sit 1 person assist Transfer Skill: Sit to Stand, Rehab Eval Level of [place]: Sit/Stand contact guard Physical Assist/Nonphysical Assist: Sit/Stand 1 person assist Weight-Bearing Restrictions: Sit/Stand toe touch weight-bearing Assistive Device for Transfer: Sit/Stand wheeled walker Upper Body Dressing Level of [place] independent Physical Assist/Nonphysical Assist set-up required Lower Body Dressing Level of [place] moderate assist (50% patients effort) Physical Assist/Nonphysical Assist 1 person assist General Therapy Interventions Planned Therapy Interventions (OT Eval) ADL retraining;balance training;transfer training Clinical Impression Co-evaluation/co-treatment performed? Yes, combination of simultaneous billable and individual billable skilled care was necessary due to medical complexity and functional deficits Patient Instruction/Education this session Pt instructed on LB dressing techniques donning underwear and shorts min assist in sitting and standing due to numbness in left foot Rehab Potential (OT Octavio) good Therapy Frequency 7 times a week Today's Treatment Included Pt is doing well post op, she is alert and following directions well. She demonstrates good safety awareness during transfers however she can't feel her foot so is unsure if she is maintain TTWB, limited to transfers only anticipate improving and advancing to increased mobility Continue care plan yes Goals Goals For Discharge Pt will return home Discussed risk / benefits with patient;patient's family Therapist Recommendations At Discharge Recommendations OT Services not recommended at Discharge Plan Plan for next session continue with bathing,d ressing, bathroom transfers and hygiene training Therapist Information License # [id number] 1. Pt will complete LB dressing MOD I 2. Pt will complete sponge bathing MOD I 3. Pt will complete toileting MOD I 4. Pt will complete hygiene/grooming standing at sink MOD I 5. Pt will complete simulated tub/shower transfer CGA Patient given and instructed IS by RN. No further questions at this time. THIS PATIENT HAS HAD ORTHOPEDIC SURGERY AND IS EXPECTED TO HAVE PAIN REQUIRING NARCOTICS FOR >7 DAYS AND MAY NEED UP TO 12 tabs of oxycodone PER DAY AND THEREFORE 30tabs ARE BEING DISPENSED IN ACCORDANCE WITH POC DISCUSSED WITH DR GAARY. documented in this encounter [facility] 07-27-2023 Hospital course Narrative Images from the original note were not included. Discharge Summary Name: Lilo Reyes Age: 68 y.o. Birthday: 1955 Admit Date: 07/26/2023 8:47 AM Discharge Date: 07/27/2023 Discharge Time: 07/27/2023 Discharge Unit: [facility] Inpatient Rehab unit Unit Length of Stay: LOS: 1 day Admission Information Admitting Physician: Braulio Garay MD Discharge Information Discharge Physician: Elmo Weiss MD Problem List Active Hospital Problems Diagnosis Status post revision of total replacement of left knee Benign hypertension Mixed hyperlipidemia Class 1 obesity due to excess calories with serious comorbidity and body mass index (BMI) of 34.0 to 34.9 in adult Prediabetes Colitis [employer] (current) use of non-steroidal anti-inflammatories (nsaid) Resolved Hospital Problems No resolved problems to display. Brief Summary of Hospital Course for Discharge Summary: This is a 15-year-old female with past medical history of hypertension hyperlipidemia colitis obesity prediabetes admitted to [facility] for left knee revision Dr. Garay July 26. After this surgery patient complains of no chest pain no shortness of breath no palpitations no abdominal pain or nausea, overnight vital signs and labs were monitored, patient worked well with physical therapy will be discharge home with follow-up primary care health and orthopedic services Brief Summary of Consults for Discharge Summary: Brief Summary of Procedures and Imaging for Discharge Summary: Summary of last selected lab results and date obtained: Lab Results Component Value Date WBC 11.3 (H) 07/27/2023 HGB 10.6 (L) 07/27/2023 HCT 34.0 (L) 07/27/2023 PLATELET 177 07/27/2023 MCV 83.2 07/27/2023 Lab Results Component Value Date SODIUM 138 07/27/2023 POTASSIUM 4.6 07/27/2023 CHLORIDE 109 (H) 07/27/2023 CO2 23 07/27/2023 BUN 17 07/27/2023 CREATSERUM 0.60 (L) 07/27/2023 GLUCOSE 124 (H) 07/27/2023 Lab Results Component Value Date ALT 25 07/01/2023 AST 29 07/01/2023 ALKPHOS 55 07/01/2023 BILITOTAL 0.4 07/01/2023 Brief Summary of Labs for Discharge Summary: No discharge procedures on file. Current Outpatient Meds: Medication List for when you go home START taking these medications cephALEXin 500 MG CAPS Take 1 capsule by mouth every 8 hours for 7 days. Start 6 hours after last dose of iv antibiotics. Commonly known as: KEFLEX omeprazole [address] capsule Take 1 capsule by mouth daily. Commonly known as: PRILOSEC oxyCODONE 5 MG TABS Take 1-2 tabs po q 4-6 hours prn pain. Wean as tolerated. Commonly known as: ROXICODONE For diagnoses: Acute postoperative pain of left knee therapeutic multivitamin-minerals TABS Take 1 tablet by mouth at bedtime. CHANGE how you take these medications Acetaminophen 325 MG tablet Take 2 tablets by mouth every 4 hours as needed for Mild Pain. Commonly known as: TYLENOL What changed: The quantity you have reported taking of this medication has changed How often you have reported taking this medication has changed You should now only take this medication as needed * Aspirin [address] tablet Take 1 tab twice a day for 30 days. This medication is for blood clot prevention. What changed: You were already taking a medication with the same name, and this prescription was added. Make sure you understand how and when to take each. * aspirin/placebo (M-1657) 81 mg TABS Take 1 tablet by mouth daily. What changed: Another medication with the same name was added. Make sure you understand how and when to take each. Docusate 100 MG CAPS Take 1 capsule by mouth 2 times daily. Commonly known as: COLACE What changed: How often you have reported taking this medication has changed * The same medication is listed twice. Please discuss with your provider. CONTINUE taking these medications CALCIUM 1200 PO Take by mouth 2 times daily. Celecoxib 200 MG CAPS Take 1 capsule by mouth 2 times daily. Commonly known as: CELEBREX diphenhydrAMINE 25 MG TABS Take 1 tablet by mouth at bedtime as needed. Commonly known as: BENADRYL estradiol 0.1 MG/GM cream Insert vaginally once a week. Commonly known as: ESTRACE Magnesium 400 MG TABS Take by mouth daily. Melatonin 10 MG TABS Take by mouth. Metoprolol 25 MG tab regular release Take 1 tablet by mouth 2 times daily. Takes half of tablet twice a day Commonly known as: LOPRESSOR Potassium 99 MG TABS Take by mouth daily. STOP taking these medications CRANBERRY PO Meloxicam 15 MG TABS Commonly known as: MOBIC Pregabalin 50 MG CAPS Commonly known as: LYRICA Follow-up: Murray Ly MD [address] [facility] [address] Follow up in 1 week(s) Braulio Garay MD [address] [facility] [address] Follow up Upcoming Appointments (up to five)-Some appointments for Medical Center outpatient clinics or diagnostic testing locations are not displayed below Provider Department Dept Phone 08/19/2023 11:40 AM Roni Mercer [facility] [phone] Total coordination of discharge care taking greater that 35 minutes documented in this encounter [facility] 07-27-2023 Nurse Note Patient laying down upon this RN arrival to patient room. Patient alert, respirations even and unlabored. Arouses easily to voice. Routine shift assessment initiated, detailed in coordinated flow sheets. Denies additional needs at this time. Call light is within reach, bed is in the lowest position, side rails up x2, and bed alarm is on. [facility] 07-27-2023 Nurse Note Pt assessment remains unchanged with any exceptions noted in flowsheets. Ice pack applied to left knee. Pt c/o 5/10 pain to left knee. Scheduled Tylenol and Toradol given - see MAR. Pt denies any further needs at this time. Call light within reach. [facility] 07-27-2023 Nurse Note Pt assessment remains unchanged with any exceptions noted in flowsheets. Ice pack applied to left knee. Pt c/o 6/10 pain to left knee. Scheduled Tylenol and Toradol given - see MAR. Pt denies any further needs at this time. Call light within reach. [facility] 07-26-2023 Nurse Note Pt assessment complete and documented in flowsheets. POC reviewed with pt. Ice pack applied to left knee. Pt denies any pain or needs at this time. Call light within reach. [facility] 07-26-2023 Consult note Formatting of th is note is different from the original. History and Physical Examination 07/26/23 5:13 PM Chief Complaint: Left knee revision History of Present Illness: Patient is a 68 y.o. female presents for [facility] for Left knee revision Dr. Garay July 26 Internal medicine consult and for hypertension hyperlipidemia history of colitis prediabetes high-risk obstructive sleep apnea After this surgery patient complains of no chest pain or shortness of breath no palpitations no abdominal pain no nausea. Today the patient denies headaches, blurred vision, lightheadedness, fever, chills, chest pain, shortness of breath. The patient denies back pain, nausea, vomiting, diarrhea/constipation, dysuria, unusual arthralgias, myalgias, skin rashes or lesions. Objective: Patient Active Problem List Diagnosis Date Noted Benign hypertension 07/26/2023 Mixed hyperlipidemia 07/26/2023 Class 1 obesity due to excess calories with serious comorbidity and body mass index (BMI) of 34.0 to 34.9 in adult 07/26/2023 Prediabetes 07/26/2023 Colitis 07/26/2023 longterm (current) use of non-steroidal anti-inflammatories (nsaid) 07/26/2023 Status post revision of total replacement of left knee 07/26/2023 Past Medical History: Diagnosis Date Arthritis Back pain chronic pain since surgery Essential hypertension, benign Floaters, bilateral Ringing in right ear Past Surgical History: Procedure Laterality Date ARTHROPLASTY KNEE TOTAL Left 08/20/2021 ARTHROPLASTY KNEE TOTAL Right 2018 BLADDER SURGERY 2018 prolapsed APPENDECTOMY ARTHROSCOPY KNEE Right times three BACK SURGERY Spinal fusion 2020 lumbar HYSTERECTOMY RELEASE CARPAL TUNNEL Left REMOVAL CATARACT (PEM) Bilateral SHOULDER SURGERY Right Rotator Social History Tobacco Use Smoking status: Never Smokeless tobacco: Never Substance Use Topics Alcohol use: Yes Comment: wine once a month Family History Problem Relation Age of Onset Heart Disease - Other Mother coronary stents Heart Disease - Other Father CABG Lung Cancer Father Heart Disease - Other Sister Myocardial Infarction Sister Prior to Admission medications Medication Sig Start Date End Date Taking? Authorizing Provider metoprolol 25 MG tab regular release Take 1 tablet by mouth 2 times daily. Takes half of tablet twice a day 06/05/22 Yes Historical Provider Acetaminophen 325 MG tablet Take 2 tablets by mouth every 4 hours as needed for Mild Pain. 07/26/23 YONATAN Flores Aspirin [address] tablet Take 1 tab twice a day for 30 days. This medication is for blood clot prevention. 07/26/23 YONATAN Flores aspirin/placebo, M-1657, 81 mg tablet Take 1 tablet by mouth daily. Historical Provider Calcium Carbonate-Vit D-Min (CALCIUM 1200 PO) Take by mouth 2 times daily. Historical Provider Celecoxib 200 MG capsule Take 1 capsule by mouth 2 times daily. 07/26/23 09/06/23 YONATAN Flores cephALEXin 500 MG capsule Take 1 capsule by mouth every 8 hours for 7 days. Start 6 hours after last dose of iv antibiotics. 07/26/23 08/02/23 YONATAN Flores diphenhydrAMINE 25 MG tablet Take 1 tablet by mouth at bedtime as needed. Historical Provider Docusate 100 MG capsule Take 1 capsule by mouth 2 times daily. 07/26/23 YONATAN Flores estradiol 0.1 MG/GM cream Insert vaginally once a week. Historical Provider Magnesium 400 MG tablet Take by mouth daily. Historical Provider Melatonin 10 MG tablet Take by mouth. Historical Provider omeprazole [address] capsule Take 1 capsule by mouth daily. 07/26/23 YONATAN Flores oxyCODONE 5 MG tablet Take 1-2 tabs po q 4-6 hours prn pain. Wean as tolerated. 07/26/23 08/02/23 YONATAN Flores Potassium 99 MG tablet Take by mouth daily. Historical Provider Pregabalin 50 MG capsule Take 1 capsule by mouth at bedtime. Patient not taking: Reported on 06/23/2023 02/19/23 Historical Provider therapeutic multivitamin-minerals tablet Take 1 tablet by mouth at bedtime. 07/26/23 YONATAN Flores Medications Prior to Admission Medication Sig Dispense Refill Last Dose metoprolol 25 MG tab regular release Take 1 tablet by mouth 2 times daily. Takes half of tablet twice a day 07/26/2023 at 7am [DISCONTINUED] celecoxib 200 MG capsule Take 1 capsule by mouth 2 times daily. 07/26/2023 aspirin/placebo, M-1657, 81 mg tablet Take 1 tablet by mouth daily. 07/19/2023 at 9am Calcium Carbonate-Vit D-Min (CALCIUM 1200 PO) Take by mouth 2 times daily. 07/19/2023 at 9am diphenhydrAMINE 25 MG tablet Take 1 tablet by mouth at bedtime as needed. estradiol 0.1 MG/GM cream Insert vaginally once a week. 07/19/2023 at 9am Magnesium 400 MG tablet Take by mouth daily. 07/19/2023 at 9am Melatonin 10 MG tablet Take by mouth. Potassium 99 MG tablet Take by mouth daily. 07/19/2023 at 9am Pregabalin 50 MG capsule Take 1 capsule by mouth at bedtime. (Patient not taking: Reported on 06/23/2023) [DISCONTINUED] acetaminophen 325 MG tablet Take 1 tablet by mouth every 4 hours. [DISCONTINUED] CRANBERRY PO Take by mouth daily. 07/19/2023 at 9am [DISCONTINUED] docusate 100 MG capsule Take 1 capsule by mouth daily. (Patient not taking: Reported on 06/23/2023) More than a month at 9am [DISCONTINUED] Meloxicam 15 MG tablet Take 1 tablet by mouth daily. Take with food (Patient not taking: Reported on 06/23/2023) 30 tablet 1 Allergies Allergen Reactions Mobic [Meloxicam] Diarrhea and Dyspepsia Amoxicillin Swelling Review of Systems: Review of Systems Constitutional: Positive for fatigue. Negative for unexpected weight change. HENT: Negative for congestion, facial swelling and voice change. Eyes: Negative for pain. Respiratory: Negative for cough and shortness of breath. Cardiovascular: Negative for palpitations and leg swelling. Gastrointestinal: Negative for abdominal distention. Endocrine: Negative for cold intolerance and heat intolerance. Genitourinary: Negative for dysuria and urgency. Musculoskeletal: Positive for arthralgias and gait problem. Negative for myalgias. Skin: Negative for rash. Allergic/Immunologic: Negative for immunocompromised state. Neurological: Positive for weakness. Negative for seizures. Hematological: Does not bruise/bleed easily. Psychiatric/Behavioral: Negative for dysphoric mood. PHYSICAL EXAM: Patient Vitals for the past 8 hrs: BP Temp Temp src Pulse Resp SpO2 Height Weight 07/26/23 1647 137/65 -- -- 68 18 93 % -- -- 07/26/23 1642 133/62 -- -- 66 18 92 % -- -- 07/26/23 1637 128/65 -- -- 71 20 94 % -- -- 07/26/23 1632 123/63 -- -- 75 20 95 % -- -- 07/26/23 1627 151/57 -- -- 69 17 99 % -- -- 07/26/23 1622 142/65 98.5 F (36.9 C) Temporal 69 18 99 % -- -- 07/26/23 1028 142/74 97.6 F (36.4 C) Oral 59 16 99 % 1.6 m (5' 3 ) 87.4 kg (192 lb 9.6 oz) 07/26/23 1000 -- -- -- -- -- -- 1.6 m (5' 2.99 ) 87.4 kg (192 lb 9.6 oz) I/O last 3 completed shifts: In: 1100 [I.V.:1000; IV Piggyback:100] Out: - Physical Exam Vitals and nursing note reviewed. Constitutional: General: She is not in acute distress. Appearance: She is not toxic-appearing or diaphoretic. Eyes: Pupils: Pupils are equal, round, and reactive to light. Neck: Vascular: No JVD. Trachea: No tracheal deviation. Cardiovascular: Rate and Rhythm: Normal rate and regular rhythm. Heart sounds: No murmur heard. Pulmonary: Effort: Pulmonary effort is normal. No respiratory distress. Breath sounds: Normal breath sounds. No wheezing or rales. Abdominal: General: Bowel sounds are normal. There is no distension. Palpations: Abdomen is soft. Tenderness: There is no abdominal tenderness. Musculoskeletal: General: Normal range of motion. Cervical back: Neck supple. Lymphadenopathy: Cervical: No cervical adenopathy. Skin: General: Skin is warm and dry. Findings: No erythema or rash. Neurological: Mental Status: She is alert and oriented to person, place, and time. Motor: Weakness present. Gait: Gait abnormal. Psychiatric: Judgment: Judgment normal. Diagnostics: Lab Results Component Value Date WBC 11.8 (H) 07/01/2023 HGB 12.8 07/01/2023 HCT 40.0 07/01/2023 PLATELET 163 07/01/2023 MCV 82.6 07/01/2023 @LASTMAGNESIUM(1D,2)@ Lab Results Component Value Date INR 0.97 07/01/2023 PT 13.0 07/01/2023 Lab Results Component Value Date CREATSERUM 0.60 (L) 07/01/2023 BUN 18 07/01/2023 SODIUM 140 07/01/2023 POTASSIUM 4.2 07/01/2023 CHLORIDE 105 07/01/2023 CO2 26 07/01/2023 Lab Results Component Value Date SPGRVTYUR >1.030 (H) 07/01/2023 GLUCOSEURINE NEGATIVE 07/01/2023 BILIRUBINURI SMALL (A) 07/01/2023 KETONESURINE NEGATIVE 07/01/2023 NITRITESURIN NEGATIVE 07/01/2023 LEUKOCESTUR NEGATIVE 07/01/2023 WBCURINE 1 TO 5 07/01/2023 RBCURINE NEGATIVE 07/01/2023 BACTERIAURIN 1+ (A) 07/01/2023 Full Code XR KNEE LEFT 1-2 VIEWS Impression and Plan: Present on Admission: Class 1 obesity due to excess calories with serious comorbidity and body mass index (BMI) of 34.0 to 34.9 in adult Prediabetes Colitis [employer] (current) use of non-steroidal anti-inflammatories (nsaid) Status post revision of total replacement of left knee Principal Problem: Status post revision of total replacement of left knee Active Problems: Benign hypertension Mixed hyperlipidemia Class 1 obesity due to excess calories with serious comorbidity and body mass index (BMI) of 34.0 to 34.9 in adult Prediabetes Colitis [employer] (current) use of non-steroidal anti-inflammatories (nsaid) 1.Status post left knee revision continue with pain control and DVT prophylaxis per orthopedic protocol 2. Hypertension continue with beta blockers twice daily 3. History of use of NSAIDs continue monitor renal function and electrolytes and creatinine clearance 4. Obesity and high risk obstructive sleep apnea continue to monitor for interaction with opiate pain medications 5. History of colitis no loose bowel movements today 6. Prediabetes continue monitoring fasting blood sugars PT OT SS for dc planning GI/DVT prophylaxis with protonix and Aspirin This plan of care was initiated in collaboration with PT, OT, ST and SW. Elmo Weiss MD [facility] 07-26-2023 Consult note Formatting of th is note is different from the original. History and Physical Examination 07/26/23 5:13 PM Chief Complaint: Left knee revision History of Present Illness: Patient is a 68 y.o. female presents for [facility] for Left knee revision Dr. Garay July 26 Internal medicine consult and for hypertension hyperlipidemia history of colitis prediabetes high-risk obstructive sleep apnea After this surgery patient complains of no chest pain or shortness of breath no palpitations no abdominal pain no nausea. Today the patient denies headaches, blurred vision, lightheadedness, fever, chills, chest pain, shortness of breath. The patient denies back pain, nausea, vomiting, diarrhea/constipation, dysuria, unusual arthralgias, myalgias, skin rashes or lesions. 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 (nsaid) 07/26/2023 Status post revision of total replacement of left knee 07/26/2023 Past Medical History: Diagnosis Date Arthritis Back pain chronic pain since surgery Essential hypertension, benign Floaters, bilateral Ringing in right ear Past Surgical History: Procedure Laterality Date ARTHROPLASTY KNEE TOTAL Left 08/20/2021 ARTHROPLASTY KNEE TOTAL Right 2018 BLADDER SURGERY 2018 prolapsed APPENDECTOMY ARTHROSCOPY KNEE Right times three BACK SURGERY Spinal fusion 2020 lumbar HYSTERECTOMY RELEASE CARPAL TUNNEL Left REMOVAL CATARACT (PEM) Bilateral SHOULDER SURGERY Right Rotator Social History Tobacco Use Smoking status: Never Smokeless tobacco: Never Substance Use Topics Alcohol use: Yes Comment: wine once a month Family History Problem Relation Age of Onset Heart Disease - Other Mother coronary stents Heart Disease - Other Father CABG Lung Cancer Father Heart Disease - Other Sister Myocardial Infarction Sister Prior to Admission medications Medication Sig Start Date End Date Taking? Authorizing Provider metoprolol 25 MG tab regular release Take 1 tablet by mouth 2 times daily. Takes half of tablet twice a day 06/05/22 Yes Historical Provider Acetaminophen 325 MG tablet Take 2 tablets by mouth every 4 hours as needed for Mild Pain. 07/26/23 YONATAN Flores Aspirin [address] tablet Take 1 tab twice a day for 30 days. This medication is for blood clot prevention. 07/26/23 YONATAN Flores aspirin/placebo, M-1657, 81 mg tablet Take 1 tablet by mouth daily. Historical Provider Calcium Carbonate-Vit D-Min (CALCIUM 1200 PO) Take by mouth 2 times daily. Historical Provider Celecoxib 200 MG capsule Take 1 capsule by mouth 2 times daily. 07/26/23 09/06/23 YONATAN Flores cephALEXin 500 MG capsule Take 1 capsule by mouth every 8 hours for 7 days. Start 6 hours after last dose of iv antibiotics. 07/26/23 08/02/23 YONATAN Flores diphenhydrAMINE 25 MG tablet Take 1 tablet by mouth at bedtime as needed. Historical Provider Docusate 100 MG capsule Take 1 capsule by mouth 2 times daily. 07/26/23 YONATAN Flores estradiol 0.1 MG/GM cream Insert vaginally once a week. Historical Provider Magnesium 400 MG tablet Take by mouth daily. Historical Provider Melatonin 10 MG tablet Take by mouth. Historical Provider omeprazole [address] capsule Take 1 capsule by mouth daily. 07/26/23 YONATAN Flores oxyCODONE 5 MG tablet Take 1-2 tabs po q 4-6 hours prn pain. Wean as tolerated. 07/26/23 08/02/23 YONATAN Flores Potassium 99 MG tablet Take by mouth daily. Historical Provider Pregabalin 50 MG capsule Take 1 capsule by mouth at bedtime. Patient not taking: Reported on 06/23/2023 02/19/23 Historical Provider therapeutic multivitamin-minerals tablet Take 1 tablet by mouth at bedtime. 07/26/23 YONATAN Flores Medications Prior to Admission Medication Sig Dispense Refill Last Dose metoprolol 25 MG tab regular release Take 1 tablet by mouth 2 times daily. Takes half of tablet twice a day 07/26/2023 at 7am [DISCONTINUED] celecoxib 200 MG capsule Take 1 capsule by mouth 2 times daily. 07/26/2023 aspirin/placebo, M-1657, 81 mg tablet Take 1 tablet by mouth daily. 07/19/2023 at 9am Calcium Carbonate-Vit D-Min (CALCIUM 1200 PO) Take by mouth 2 times daily. 07/19/2023 at 9am diphenhydrAMINE 25 MG tablet Take 1 tablet by mouth at bedtime as needed. estradiol 0.1 MG/GM cream Insert vaginally once a week. 07/19/2023 at 9am Magnesium 400 MG tablet Take by mouth daily. 07/19/2023 at 9am Melatonin 10 MG tablet Take by mouth. Potassium 99 MG tablet Take by mouth daily. 07/19/2023 at 9am Pregabalin 50 MG capsule Take 1 capsule by mouth at bedtime. (Patient not taking: Reported on 06/23/2023) [DISCONTINUED] acetaminophen 325 MG tablet Take 1 tablet by mouth every 4 hours. [DISCONTINUED] CRANBERRY PO Take by mouth daily. 07/19/2023 at 9am [DISCONTINUED] docusate 100 MG capsule Take 1 capsule by mouth daily. (Patient not taking: Reported on 06/23/2023) More than a month at 9am [DISCONTINUED] Meloxicam 15 MG tablet Take 1 tablet by mouth daily. Take with food (Patient not taking: Reported on 06/23/2023) 30 tablet 1 Allergies Allergen Reactions Mobic [Meloxicam] Diarrhea and Dyspepsia Amoxicillin Swelling Review of Systems: Review of Systems Constitutional: Positive for fatigue. Negative for unexpected weight change. HENT: Negative for congestion, facial swelling and voice change. Eyes: Negative for pain. Respiratory: Negative for cough and shortness of breath. Cardiovascular: Negative for palpitations and leg swelling. Gastrointestinal: Negative for abdominal distention. Endocrine: Negative for cold intolerance and heat intolerance. Genitourinary: Negative for dysuria and urgency. Musculoskeletal: Positive for arthralgias and gait problem. Negative for myalgias. Skin: Negative for rash. Allergic/Immunologic: Negative for immunocompromised state. Neurological: Positive for weakness. Negative for seizures. Hematological: Does not bruise/bleed easily. Psychiatric/Behavioral: Negative for dysphoric mood. PHYSICAL EXAM: Patient Vitals for the past 8 hrs: BP Temp Temp src Pulse Resp SpO2 Height Weight 07/26/23 1647 137/65 -- -- 68 18 93 % -- -- 07/26/23 1642 133/62 -- -- 66 18 92 % -- -- 07/26/23 1637 128/65 -- -- 71 20 94 % -- -- 07/26/23 1632 123/63 -- -- 75 20 95 % -- -- 07/26/23 1627 151/57 -- -- 69 17 99 % -- -- 07/26/23 1622 142/65 98.5 F (36.9 C) Temporal 69 18 99 % -- -- 07/26/23 1028 142/74 97.6 F (36.4 C) Oral 59 16 99 % 1.6 m (5' 3 ) 87.4 kg (192 lb 9.6 oz) 07/26/23 1000 -- -- -- -- -- -- 1.6 m (5' 2.99 ) 87.4 kg (192 lb 9.6 oz) I/O last 3 completed shifts: In: 1100 [I.V.:1000; IV Piggyback:100] Out: - Physical Exam Vitals and nursing note reviewed. Constitutional: General: She is not in acute distress. Appearance: She is not toxic-appearing or diaphoretic. Eyes: Pupils: Pupils are equal, round, and reactive to light. Neck: Vascular: No JVD. Trachea: No tracheal deviation. Cardiovascular: Rate and Rhythm: Normal rate and regular rhythm. Heart sounds: No murmur heard. Pulmonary: Effort: Pulmonary effort is normal. No respiratory distress. Breath sounds: Normal breath sounds. No wheezing or rales. Abdominal: General: Bowel sounds are normal. There is no distension. Palpations: Abdomen is soft. Tenderness: There is no abdominal tenderness. Musculoskeletal: General: Normal range of motion. Cervical back: Neck supple. Lymphadenopathy: Cervical: No cervical adenopathy. Skin: General: Skin is warm and dry. Findings: No erythema or rash. Neurological: Mental Status: She is alert and oriented to person, place, and time. Motor: Weakness present. Gait: Gait abnormal. Psychiatric: Judgment: Judgment normal. Diagnostics: Lab Results Component Value Date WBC 11.8 (H) 07/01/2023 HGB 12.8 07/01/2023 HCT 40.0 07/01/2023 PLATELET 163 07/01/2023 MCV 82.6 07/01/2023 @LASTMAGNESIUM(1D,2)@ Lab Results Component Value Date INR 0.97 07/01/2023 PT 13.0 07/01/2023 Lab Results Component Value Date CREATSERUM 0.60 (L) 07/01/2023 BUN 18 07/01/2023 SODIUM 140 07/01/2023 POTASSIUM 4.2 07/01/2023 CHLORIDE 105 07/01/2023 CO2 26 07/01/2023 Lab Results Component Value Date SPGRVTYUR >1.030 (H) 07/01/2023 GLUCOSEURINE NEGATIVE 07/01/2023 BILIRUBINURI SMALL (A) 07/01/2023 KETONESURINE NEGATIVE 07/01/2023 NITRITESURIN NEGATIVE 07/01/2023 LEUKOCESTUR NEGATIVE 07/01/2023 WBCURINE 1 TO 5 07/01/2023 RBCURINE NEGATIVE 07/01/2023 BACTERIAURIN 1+ (A) 07/01/2023 Full Code XR KNEE LEFT 1-2 VIEWS Impression and Plan: Present on Admission: Class 1 obesity due to excess calories with serious comorbidity and body mass index (BMI) of 34.0 to 34.9 in adult Prediabetes Colitis [employer] (current) use of non-steroidal anti-inflammatories (nsaid) Status post revision of total replacement of left knee Principal Problem: Status post revision of total replacement of left knee Active Problems: Benign hypertension Mixed hyperlipidemia Class 1 obesity due to excess calories with serious comorbidity and body mass index (BMI) of 34.0 to 34.9 in adult Prediabetes Colitis lab[employer] (current) use of non-steroidal anti-inflammatories (nsaid) 1.Status post left knee revision continue with pain control and DVT prophylaxis per orthopedic protocol 2. Hypertension continue with beta blockers twice daily 3. History of use of NSAIDs continue monitor renal function and electrolytes and creatinine clearance 4. Obesity and high risk obstructive sleep apnea continue to monitor for interaction with opiate pain medications 5. History of colitis no loose bowel movements today 6. Prediabetes continue monitoring fasting blood sugars PT OT SS for dc planning GI/DVT prophylaxis with protonix and Aspirin This plan of care was initiated in collaboration with PT, OT, ST and SW. Elmo Weiss MD documented in this encounter [facility] 07-26-2023 Nurse Note Patient transferred to room 3755 via bed in stable condition. Report given to ROGER Cummings. Bed left in locked and lowest position with side rails up x3. Ice chips and call light given to patient. Monitors and alarms on and attached to patient. Patient transported to PACU with Arpan MEIER. Reports given to Gely RN at 1622H. OR #4 OR room temp: 66.1F OR room humidity: 40.0% documented in this encounter [facility] 07-26-2023 Nurse Surgical operation note Patient transferred to room 3755 via bed in stable condition. Report given to ROGER Cummings. Bed left in locked and lowest position with side rails up x3. Ice chips and call light given to patient. Monitors and alarms on and attached to patient. [facility] 07-26-2023 Nurse Surgical operation note Patient transported to PACU with Arpan MEIER. Reports given to Gely RN at 1622H. [facility] 07-26-2023 Nurse Surgical operation note OR #4 OR room temp: 66.1F OR room humidity: 40.0% [facility] 07-26-2023 Hospital Discharg e instructions Zoila Todd RN - 07/26/2023 2:07 PM EST Images from the original note were not included. Diet: Resume diet tolerated. Medications: > Patients will be sent home with prescriptions, including medication for pain to be taken as directed. Stay ahead and do not allow your pain to get out of control. > If prescribed Aspirin, take twice a day for 30 days. Do not skip a dose, this is your medication for the prevention of blood clots. > If you have not had a bowel movement by your 3rd post-operative day you will need to use a gentle over the counter laxative such as Milk of magnesia, Fiberlax, Miralax, etc. Bowels need to move within 3 days or take action. Garcia Hose: > Help reduce the risk of blood clots and decrease swelling > To be worn bilaterally to the lower extremities for 30 days post-op > Patients can take their agrcia hose off for 1 hour for every 8 hours that they wear them You will be discharged with two pairs of GARCIA hose. Gel Ice Packs > Change every 4 hours or as needed for swelling and pain for at least the first 2 weeks You will be discharged with six ice gel packs, and one ice gel compression wrap. Dressings: Your incision is closed with derrick. These are to be removed 10-14 days after you surgery. Your surgery day was July 26. Do not get your incision wet until after your derrick have been removed. Once the derrick have been removed and you are able to shower do not saturate or submerge extremity in water (i.e. Bathtub, hot tub, etc.) until cleared by the provider. Do not wash/scrub directly over/on your incision. Pat your incision dry do not rub your incision with a towel. Do not place any lotions, ointments, creams or powder on your incision or operative leg. When applying your new ABD pad after showering as a reminder do not place any tape over you ABD pad. Your tedhose are to hold your pad in place. You will be discharged with seven ABD pads. DRAINS: When you go home after surgery, you may have one or more drains in place to help your wounds heal. Hemovac, Cruz Ibarra([place]) and Luis Fernando are common drains used for wounds. The drain has a squeezable container connected to flexible tubing. The tubing is put into an area near your surgical incision. It is held in place by stitches. When the drain is pressed flat, a gentle suction helps remove fluid from the wound. Your doctor will tell you when your drain can be removed. Wound Drainage Systems Taking Care of Your Drain(s) You will need to empty the drain and record the drainage amount on your wound drainage record sheet. Bring this record sheet to every appointment with your surgeon. What does normal drainage look like? After surgery, the color and consistency of your drainage may change in the following way: It is normal for your drainage to be a little bloody in the morning or when you move around and then return to a clear red or pink color the rest of the day. Call your surgeon s office and report if: The drainage color changed from a light color and has become bloody or bright red in color. The drainage smell has changed. The drainage has pus. How to Empty Your Drain Empty your drain in the morning and again in the evening. You should also empty the drain anytime it is correction full. Follow these steps to empty your drain: Wash your hands well with soap and warm water. Rinse and dry. Get a measuring cup and your Wound Drainage Record Sheet. Use a record sheet to write down the amount and color of fluid from the drain. You can use the record sheet at the end of this handout or make your own. Unfasten the pin or clip that holds the drain to your clothing. Open the plug on the drain. Turn the drain upside down over the measuring cup and gently squeeze the drain to empty it. Continue to squeeze the drain. Press down on the drain until it is flat and replace the plug. All of the air needs to be out of the drain or it will not work properly. If you are not able to squeeze and plug the drain at the same time, it may help to put the drain on a firm flat surface like a table. Do not let the drain dangle. Carefully pin or clip the drain to your clothing. Attach the drain lower than the area where it comes out of your body. Make sure the tubing lies flat with no kinks. Check the amount and color of the fluid in the measuring cup. Call your doctor if the fluid is cloudy, smells bad or the amount of fluid has increased. Write the date, time, amount and color of the fluid on the wound drainage record sheet. If you have more than one drain, empty, measure and write down the amount of fluid for each drain. Empty the fluid into the toilet, rinse the measuring cup and flush the toilet. If you have more than one drain, repeat steps 3 to 10. Wash your hands well with soap and warm water. Rinse and dry Drain removal Please call Dr. Garay's nurse ([phone]) the morning after discharge with the recorded amount of drainage from your hemovac. The nurse will give you further instructions regarding when your drain should be removed. If you have Home Health Care, your drain can be removed by your Home Health Care Nurse. Output Documentation: Day 1 bedtime ml/cc Day 2 morning ml/cc Total to report ml/cc Day 2 bedtime ml/cc Day 3 morning ml/cc Total to report ml/cc When to call the doctor? Call your doctor right away if you have any of the following: Fever of 100.4 degrees Fahrenheit (38 degrees Celsius) or higher Redness, swelling, or unusual drainage where the tube comes out of the skin Drainage that becomes milky, cloudy or smells bad A sudden increase in the amount of drainage Any new or increased pain Little or no drainage in the drain and fluid is leaking where the tube comes out of your skin Your drain will not stay pressed together after you have emptied it The drain tubing pulls out of your skin For Knee Replacements: > Physical therapy 3 times per week for 6 full weeks > Maintain uninterrupted therapy if transitioning from home therapy to outpatient therapy > No therabands over your wound/incision > Patients should be doing home exercises on days they are not working with a therapist > Do not rest with a pillow under the knee, work on flexion and extension exercises to improve range of motion Ambulation > Weight bearing status: Toe touch on left leg with a walker then progress to a cane if stable, unless noted otherwise by the physician or therapist. Anesthesia Precautions & Expectations: After anesthesia, rest for [address], drink alcoholic beverages or make any important decisions during this time. General anesthesia may cause a sore throat, jaw discomfort or muscle aches. These symptoms can last for one or two days. Additional Instructions: ON Q PAIN RELIEF SYSTEM You have been provided with an educational handout about your On-Q Pain Relief System. Things to remember: 1.) The ball is NOT filled with narcotics. It is filled with numbing medication called Ropivacaine which is simply numbing the nerves around the knee. 2.) Your ON Q pump is set at 2 ml per hour. As your initial nerve block wears off, you can increase your ON-Q to 4 to 6ml per hour for pain control. For severe pain you may increase to 8ml per hour or higher for 1 hour, then turn your ON Q back down to 4 to 6 ml per hour. 3.) Pump MUST be in black flakita pack and worn around the neck, shoulder, or abdomen during therapy or ambulation. This is to ensure that pump doesn't fall and dislodge the catheter. 4.) Do NOT squeeze the ball. 5.) Leaking at the catheter site is normal. Do not be alarmed; just use a paper towel or dry wash cloth to absorb the fluid. 6.) Taking a sponge bath is preferred while having the ON-Q ball in place. 7.) Do not drive 8.) Follow the instructions to remove your ON-Q ball on the ON-Q Catheter Removal Sheet . Once catheter is removed, place a band aid over the incision site. Remove the On-Q ball 7 days after discharge, or when it is empty. 9.) Once the catheter is removed it is NOT reusable, throw the ball away in the trash. As a patient you may be concerned about receiving too much local anesthetic medication; however, the pump has been preset specifically for you. It is unlikely that you will receive too much medicine from the pump. However, if you were to get too much medication it might cause ringing in your ears, blurred vision, mouth or tongue numbness, or a metallic taste. You might feel nervous or confused. If you experience any of these symptoms, clamp the tubing and call the number provided below. If you have questions or concerns call the 24 Hour Product Support Hotline at Elmo Weiss MD - 07/27/2023 7:42 AM EST As instructed Elmo Weiss MD - 07/27/2023 7:42 AM EST Resume previous diet The following attachments cannot be sent through Care Everywhere.cephalexin (Citizen Of [place])documented in this encounter [facility] 07-26-2023 Nurse Note Patient to procedure at this time. [facility] 07-26-2023 Nurse Note Patient arrived to room 3755 at this time. Oriented to room and provided call light. Admission assessment initiated along with initial vital signs and weight. Additional information can be found in coordinating flow sheets. Pre-op prep being done by [employer]. No additional needs at this time, call light in reach, side rails up x3, at bedside. [facility] 07-23-2023 Evaluation + Plan note Extrac garcia from: Title:Pain Managment Follow up Author:Louise John Date:07/23/23 Impression and Plan Patient is a 68-year-old female with a past medical history seen for lumbar stenosis, lumbar neuritis, sacroiliitis and left knee pain left knee replacement. Patient is getting ready to have a left knee replacement revision done on Wednesday. She wants to wait any other treatments by our services until after she has the left knee and is recovered. She is here today to update us on her injection relief. Unfortunate, she did not feel that she got much by the way of relief. We discussed different options but at this time, she is just going to pursue her revision replacement and she will call us after she has recovered should she require anything from our services. Questions were all answered and discussed. 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 Independent Concerns With Patient Being Able To Care For Themselves At Discharge? Has Assistance (Friend, Family, Skilled Provider) Can Support Person Meet The Care Needs Of The Patient? Yes Employment/Financial Employed? Retired Initial Discharge Planning Patient Goal for Discharge Return home with assistance from family and friends Initial Discharge Planning DME (CARD WRITER HAND) Straight cane;Walker Anticipated discharge disposition Home with Home Health Anticipated Services at Discharge Physical Therapy;Group Home CM met with patient this date to discuss post-surgical discharge plans. Patient states that she would like to return home with [facility] and would later like to go to outpatient therapy at [facility] in [place]. Patient has a wheeled walker, instructed to bring with her on the day of surgery. Patient denies any other questions or needs at this time. CM to continue to follow and assist with discharge plans. [facility]11-15-2023 Evaluation + Plan noteExtracted from: Title:Bilateral L3/4 transfo raminal epidural steroid injection Author:Juwan Mendez DO Date:06/30/23 Diagnosis: M54.16, lumbar ra diculopathy Procedure: Bilateral L3/4 lumbar transforaminal epidural steroid injections under fluoroscopic guidance Anesthesia: Local, oral valium administered preoperatively Complications: none After informed consent was obtained, the patient was brought to the procedure suite placed in the prone position. Pulse oximetry and blood pressure were monitored throughout. The low back area is prepped and draped in usual sterile fashion. Using fluoroscopic guidance, skin and subcutaneous tissue overlying the medial trajectory of the neuroforamina were anesthetized with 2% lidocaine. A 22-gauge Sprotte needles were then advanced under fluoroscopic guidance to the appropriate foramina. Needle tip positions were confirmed under fluoroscopic views. Injection of contrast revealed appropriate spread of the dye without vascular uptake. Next, at each site, 1.5 mL of 1.0% lidocaine with 5 mg of dexamethasone was injected through the needle tip. The needles were then removed and the patient was then transferred to the recovery room in stable condition. The pain tolerated the procedure well. There were no apparent complications. Follow-up: The patient will update us on the response to this procedure, and agrees to comply to currently prescribed/recommended therapies. Future Appointments Appointment Date:07/12/2023 10:00:00 AM Scheduled Provider:Jaci Tee Location[facility] Appointment Type: Open Appointment Date:07/23/2023 08:45:00 AM Scheduled Provider:Louise Owusu PA-C Location[facility] Appointment Type:Pain Management - Follow Up (FT) [facility]11-15-2023 Note [id number] NoteDiagnosis: M54.16, lumbar radiculopathy Procedure: Bilateral L3/4 lumbar transforaminal epidural steroid injections under fluoroscopic guidance Anesthesia: Local, oral valium administered preoperatively Complications: none After informed consent was obtained, the patient was brought to the procedure suite placed in the prone position. Pulse oximetry and blood pressure were monitored throughout. The low back area is prepped and draped in usual sterile fashion. Using fluoroscopic guidance, skin and subcutaneous tissue overlying the medial trajectory of the neuroforamina were anesthetized with 2% lidocaine. A 22-gaugeSprotte needles were then advanced under fluoroscopic guidance to the appropriate foramina. Needle tip positions were confirmed under fluoroscopic views. Injection of contrast revealed appropriate spread of the dye without vascular uptake. Next, at each site, 1.5 mL of 1.0% lidocaine with 5 mg of de xamethasone was injected through the needle tip. The needles were then removed and the patient was then transferred to the recovery room in stable condition. The pain tolerated the procedure well. There were no apparent complications. Follow-up: The patient will update us on the response to this procedure, and agrees to comply to currently prescribed/recommended therapies.[facility] Comment on above:Result Comment: Electronically Signed By: Juwan Mendez DO.br\Date and Time Signed: 06/30/23 10:25 [id number] Evaluation + Plan note Extracted from: Title:Pain Management * Author:Kya eMndez DO Date:06/10/23 Impression and Plan History, physical examination, and personal review of pertinent imaging results indicate a diagnosis of: -M48.062, lumbar stenosis with neurogenic claudication -M54.16, lumbar radiculopathy -M46.1, sacroiliitis Plan: -Discussed that we can repeat the sacroiliac joint injections every 3 to 4 months on an as-needed basis -We will schedule the patient for bilateral L3/4 transforaminal epidural steroid injection -We will follow-up in 1 month or sooner if any issues arise Patient was counseled on the above diagnosis and treatment, all questions were answered and patient agrees to adhere to the plan above. Risk and benefits of appropriate procedures and medications were reviewed as well with patient, who voiced understanding and agreeance. Patient was counseled on smoking cessation and/or continuing to abstain from nicotine/tobacco products as appropriate based on history; as smoking/nicotine can contribute to increased pain overall and decreased wound healing. Patient counseled on maintaining a healthy BMI as part of the total treatment of their pain and to reduce stress/strain on joints. Patient invited to return or call with any questions or concerns that arise. Future Appointments Appointment Date:07/12/2023 10:00:00 AM Scheduled Provider:Jaci Tee Location:[facility] Appointment Type:[facility]09-28-2023 Note [id number]:127[facility] 05-12-2023 NoteDiagnosis: M46.1 Procedure: Left diagnostic and therapeutic sacroiliac Joint injections under fluoroscopic guidance Anesthesia: Local Complications: none After informed consent was obtained, the patient was brought back to the procedure room and placed in the prone position. Back areas prepped and draped in the usual sterile fashion using fluoroscopicguidance, the skin and subcutaneous tissues overlying the needle trajectory over the lower aspect of sacroiliac joint were anesthetized with 2% lidocaine. The 22-gauge Quincke needles were then introduced in the lower aspect of the sacroiliac joint. Injection of contrast under fluoroscopy revealed appropriate intra-articular spread. Thereafter, 3 mL of 0.5% bupivacaine with 40 mg of methylprednisolone was injected into the sacroiliac joint. The needle was then removed. The patient tolerated procedure well. Patient was then transferred to the recovery room in stable condition. Follow-up: The patient will update us on the response to this procedure, and agrees to continue currently prescribed/recommended therapies.[facility] Comment on above:Result Comment: Electronically Signed By: Juwan Mendez DO.br\Date and Time Signed: 05/12/23 14:17 [id number] History of Present illness Narrative* Lashae Flores LPN - 05/06/2023 8:50 AM EDT Ortho Nurse - Established Patient Intake Room#: 2--Visit today to discuss surgery for Left knee. She continues to have pain in her Left knee. Her pain today is a 9. She had a Left tka on 08-20-2021. At her last visit revision or conservative treatment was discussed. She tried PT and NSAIDS. They have not helped. Date: 05/06/2023 8:46 AM Patient: Lilo Reyes MR#: [id number] : 1955 Age: 67 y.o. Referring Physician: Self, Self Insurance: Payor: MEDICARE / Plan: MEDICARE A AND B / Product Type: *No Product type* / Chief Complaint Patient presents with Left Knee - Pain Visit Vitals Temp 96.7 F (35.9 C) (Temporal) Ht 1.6 m (5' 3 ) Wt 91.4 kg (201 lb 6.4 oz) BMI 35.68 kg/m Pain Presence of Pain: complains of pain/discomfort Pain Location: knee, left Select Pain Scale: DVPRS (Defense and Veterans Pain Rating Scale) (Adult- Cognitively Intact) Pain Location: knee, left Select Pain Scale: DVPRS (Defense and Veterans Pain Rating Scale) (Adult- Cognitively Intact) Recent Labs No results found for: CRP No results found for: SEDRATE No results found for: WBC , WBCCOUNT , WBCFETAL , HGB , HCT , PLATELET , MCV History Past Medical History: Diagnosis Date Essential hypertension, benign Past Surgical History: Procedure Laterality Date ARTHROPLASTY KNEE TOTAL Left 08/20/2021 ARTHROPLASTY KNEE TOTAL Right 2018 APPENDECTOMY ARTHROSCOPY KNEE Right times three BACK SURGERY Spinal fusion 2020 lumbar BLADDER SURGERY prolapsed HYSTERECTOMY RELEASE CARPAL TUNNEL Left REMOVAL CATARACT (PEM) Bilateral SHOULDER SURGERY Right Rotator Family History: Her family history is not on file. Social History: Her reports that she has never smoked. She has never used smokeless tobacco. She reports current alcohol use. She reports that she does not use drugs. Outpatient Medications Prior to Visit Medication Sig Dispense Refill aspirin/placebo, M-1657, 81 mg tablet Take 1 tablet by mouth daily. Calcium Carbonate-Vit D-Min (CALCIUM 1200 PO) Take by mouth. celecoxib 200 MG capsule Take 1 capsule by mouth 2 times daily. CRANBERRY PO Take by mouth. docusate 100 MG capsule Take 1 capsule by mouth daily. metoprolol 25 MG tab regular release Take 1 tablet by mouth 2 times daily. Takes half of tablet twice a day acetaminophen 325 MG tablet Take 325 mg by mouth every 4 hours. diphenhydrAMINE 25 MG tablet Take 25 mg by mouth at bedtime as needed. Melatonin 10 MG tablet Take by mouth. Meloxicam 15 MG tablet Take 1 tablet by mouth daily. Take with food 30 tablet 1 Pregabalin 50 MG capsule Take 1 capsule by mouth at bedtime. No facility-administered medications prior to visit. Allergies: She is allergic to mobic [meloxicam] and amoxicillin. * Braulio Garay MD - 05/06/2023 8:50 AM EDT HPI: Patient is here today to be evaluated for left knee pain. She is a pleasant 67 y.o. female. Primary complaint is pain and discomfort. She presents with a highly complex array of symptoms upon exam today. She is s/p a left TKA on 08/20/[address] Brock in [place]. Last evaluated on 03/03/23, history of aspiration, injection, physical therapy and NSAIDS. The pain is located on the medial sideof knee. She reports she doesn't trust her ambulation, steps are difficult and her muscles feel sore and achy. We previously discussed maintaining conservative treatment vrs surgical intervention. She reports the conservative treatment has not been helpful. 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 Her pain is a 9/10 upon exam today. PHYSICAL EXAM: This is an alert, oriented, and age-appropriate female. She is in no distress. Pleasant and cooperative. EXTREMITIES: The upper extremities have no gross deformities. Normal stability.Skin Intact. 5/5 motor. Intact sensation. Normal neurovascular status. Normal coordination. The lower extremities have no gross deformities. Normal stability. Skin Intact. 5/5 motor. Intact sensation. Normal neurovascular status. Normal coordination. Range of motion upon exam today is 5-120. Mid flexion and flexion laxity. Painful range of motion. Full motion of hip. No pain. No impingement. No instability. Contralateral leg has normal alignment. Full motion. No pain. No impingement. No instability. IMAGING: Previous plain film radiographs were reviewed. She has a left total knee arthroplasty in fair position and alignment, some obliquity of the patella. IMPRESSION: 1.) Mid flexion and flexion instability, left TKA. 2.) Possible cement debonding, left TKA. 3.) Status post a left TKA on 08/20/[address] Brock in [place]. PLAN: We have discussed in great detail the nature of the diagnosis, the natural history and expected progression which is likely worsening pain, worsening instability with risks of falls, and potentially additional joint and or bone wear. We have discussed the options for treatment including both conservative and operative treatments. We have discussed the risks, benefits, and alternatives to each treatment. Lilo understands that the potential benefits are reduced pain, improved stability and improved function. Lilo understands the complex nature of revision surgery and that the elevated major life or limb threatening risks that include, but are not limited to: bleeding, infection, neurovascular injury including foot drop or paralysis, dislocation, component failure, implant loosening, ligament or tendon disruption, fracture, stiffness, chronic pain, chronic disability, need for further surgery, blood clots in the extremities or lungs, stroke, heart attack, loss of limb, and ultimately loss of life. In particular the patient understands the increased and major risks of revision surgery such as debi-prosthetic fracture, infection, component failure or loosening, nerve injury, blood vessel injury, loss of leg or life. She understands revision surgery may take longer and may require more extensive exposure and potentially osteotomies and that this may lead to additional morbidity or mortality. Despite these risks, the patient would like to proceed with surgical planning for revision left total knee replacement. Today, we will initiate the pre-surgical process including nasalMRSA screening, scheduling an appointment for [facility] and the potential surgical date, andreviewing and signing the consent forms. I have reviewed the findings of my clinical staff below and agree with their assessment. Vitals: 05/06/23 0838 Temp: 96.7 degrees F (35.9 degrees C) TempSrc: Temporal Weight: 91.4 kg (201 lb 6.4 oz) Height: 1.6 m (5' 3 ) Pain Presence of Pain: complains of pain/discomfort Pain Location: knee, left Select Pain Scale: DVPRS (Defense and Veterans Pain Rating Scale) (Adult- Cognitively Intact) Pain Location: knee, left Select Pain Scale: DVPRS (Defense and Veterans Pain Rating Scale) (Adult- Cognitively Intact) Recent Labs No results found for: CRP No results found for: SEDRATE No results found for: WBC , WBCCOUNT , WBCFETAL , HGB , HCT , PLATELET , MCV Past Medical History: Diagnosis Date Essential hypertension, benign Past Surgical History: Procedure Laterality Date ARTHROPLASTY KNEE TOTAL Left 08/20/2021 ARTHROPLASTY KNEE TOTAL Right 2017 APPENDECTOMY ARTHROSCOPY KNEE Right times three BACK SURGERY Spinal fusion 2020 lumbar BLADDER SURGERY prolapsed HYSTERECTOMY RELEASE CARPAL TUNNEL Left REMOVAL CATARACT (PEM) Bilateral SHOULDER SURGERY Right Rotator No family history on file. Social History Socioeconomic History Marital status: Tobacco Use Smoking status: Never Smokeless tobacco: Never Vaping Use Vaping Use: Never used Substance and Sexual Activity Alcohol use: Yes Comment: occasional Drug use: Never Current Outpatient Medications: aspirin/placebo, M-1657, 81 mg tablet, Take 1 tablet by mouth daily., Disp: , Rfl: Calcium Carbonate-Vit D-Min (CALCIUM 1200 PO), Take by mouth., Disp: , Rfl: celecoxib 200 MG capsule, Take 1 capsule by mouth 2 times daily., Disp: , Rfl: CRANBERRY PO, Take by mouth., Disp: , Rfl: docusate 100 MG capsule, Take 1 capsule by mouth daily., Disp: , Rfl: metoprolol 25 MG tab regular release, Take 1 tablet by mouth 2 times daily. Takes half of tablet twice a day, Disp: , Rfl: acetaminophen 325 MG tablet, Take 325 mg by mouth every 4 hours., Disp: , Rfl: diphenhydrAMINE 25 MG tablet, Take 25 mg by mouth at bedtime as needed., Disp: , Rfl: Melatonin 10 MG tablet, Take by mouth., Disp: , Rfl: Meloxicam 15 MG tablet, Take 1 tablet by mouth daily. Take with food, Disp: 30 tablet, Rfl: 1 Pregabalin 50 MG capsule, Take 1 capsule by mouth at bedtime., Disp: , Rfl: Allergies Allergen Reactions Mobic [Meloxicam] Diarrhea and Dyspepsia Amoxicillin Swelling documented in [facility] Evaluation + Plan note Extracted from: Title:Pain Management * Author:Kya Mendez DO Date:04/28/23 Impression and Plan History, physical examination, and personal review of pertinent imaging results indicate a diagnosis of: -Left sacroiliitis -Left knee pain, patient is status post total knee arthroplasty in this knee Plan: -We had discussion about her sacroiliitis and recurrence of symptoms, we discussed that it would be reasonable for her to taper off her gabapentin she will decrease this by 300 mg every 3 days until she is off this medication to see how she does -We will schedule her for a left sacroiliac joint injection under fluoroscopic guidance -We discussed her left knee pain, she has had a total knee arthroplasty and plans to follow-up with her orthopedic surgeon, after she follows up we can consider genicular block if it is deemed that there is no surgical intervention required for her knee Patient was counseled on the above diagnosis and treatment, all questions were answered and patient agrees to adhere to the plan above. Risk and benefits of appropriate procedures and medications were reviewed as well with patient, who voiced understanding and agreeance. Patient was counseled on smoking cessation and/or continuing to abstain from nicotine/tobacco products as appropriate based on history; as smoking/nicotine can contribute to increased pain overall and decreased wound healing. Patient counseled on maintaining a healthy BMI as part of the total treatment of their pain and to reduce stress/strain on joints. Patient invited to return or call with any questions or concerns that arise. [facility]08-18-2023 Evaluation + Plan noteExtracted from: Title:Pain Managment Follow up Author:Louise John Date:04/02/23 Impression and Plan Patient is a 67-year-old female with a past medical history seen for lumbosacral spondylosis, previous lumbar fusion, sacroiliitis and previous left knee replacement. She is still having a lot of issues with her left knee replacement. She states that this gives her pain and affects her ambulatory status. She is seeing Dr. Garay for this. She has an appointment in May. She is thinking that she may need to have a revision and she is considering pursuing this. We had a long discussion of this and the other pains that she is experiencing. At this time, I would recommend her to continue follow-up with Dr. Garay. For left buttock pain previous left-sided sacroiliac joint injection did give her relief. We discussed since she did not tolerate the Lyrica once again trying gabapentin. She was on gabapentin in the past. She did not have any side effects which she stopped after her previous surgery. Since she seemed to tolerate it okay I gave her a titration schedule over the next few weeks to increase this to 600 mg 3 times a day. Potential side effects of the medication were discussed. How to start it was discussed. OARRS was reviewed. At this time, she is going to start the medication. She will follow-up in 1 month for reevaluation. Call clinic sooner if necessary. ANN score: 34% Future Appointments Appointment Date:04/28/2023 01:00:00 PM Scheduled Provider:Juwan Mendez DO Location:.[facility] Appointment Type:Pain Management - Follow Up (FT) [facility]07-19-2023 History of Present illness Narrative* Lashae Flores LPN - 03/03/2023 3:10 PM EDT Ortho Nurse - Established Patient Intake Room#: 1---Visit today to evaluate for Left knee pain. She was seen last on 07-15-[address] Garay.He did a injection and this did relieve her pain for about 3 months. The pain has started again-less then before. Her pain does increase with activity. Her pain today is a 6. She does follow with pain management for back pain. Date: 03/03/2023 3:04 PM Patient: Lilo Reyes MR#: [id number] : 1955 Age: 67 y.o. Referring Physician: Self, Self Insurance: Payor: MEDICARE / Plan: MEDICARE A AND B / Product Type: *No Product type* / Chief Complaint Patient presents with Left Knee - Pain, Condition Update Visit Vitals Temp 97 F (36.1 C) (Temporal) Ht 1.6 m (5' 3 ) Wt 98.4 kg (217 lb) BMI 38.44 kg/m Pain Presence of Pain: complains of pain/discomfort Pain Location: knee, left Select Pain Scale: DVPRS (Defense and Veterans Pain Rating Scale) (Adult- Cognitively Intact) Pain Location: knee, left Select Pain Scale: DVPRS (Defense and Veterans Pain Rating Scale) (Adult- Cognitively Intact) Recent Labs No results found for: CRP No results found for: SEDRATE No results found for: WBC , WBCCOUNT , WBCFETAL , HGB , HCT , PLATELET , MCV History Past Medical History: Diagnosis Date Essential hypertension, benign Past Surgical History: Procedure Laterality Date ARTHROPLASTY KNEE TOTAL Left 08/20/2021 ARTHROPLASTY KNEE TOTAL Right 2017 APPENDECTOMY ARTHROSCOPY KNEE Right times three BACK SURGERY Spinal fusion 2020 lumbar BLADDER SURGERY prolapsed HYSTERECTOMY RELEASE CARPAL TUNNEL Left REMOVAL CATARACT (PEM) Bilateral SHOULDER SURGERY Right Rotator Family History: Her family history is not on file. Social History: Her reports that she has never smoked. She has never used smokeless tobacco. She reports current alcohol use. She reports that she does not use drugs. Outpatient Medications Prior to Visit Medication Sig Dispense Refill aspirin/placebo, M-1657, 81 mg tablet Take 1 tablet by mouth daily. Calcium Carbonate-Vit D-Min (CALCIUM 1200 PO) Take by mouth. celecoxib 200 MG capsule Take 1 capsule by mouth 2 times daily. CRANBERRY PO Take by mouth. docusate 100 MG capsule Take 1 capsule by mouth daily. metoprolol 25 MG tab regular release Take 1 tablet by mouth 2 times daily. Takes half of tablet twice a day Pregabalin 50 MG capsule Take 1 capsule by mouth at bedtime. acetaminophen 325 MG tablet Take 325 mg by mouth every 4 hours. diphenhydrAMINE 25 MG tablet Take 25 mg by mouth at bedtime as needed. Melatonin 10 MG tablet Take by mouth. No facility-administered medications prior to visit. Allergies: She is allergic to amoxicillin. * Braulio Garay MD - 03/03/2023 3:10 PM EDT HPI: Patient is here today to be evaluated for left knee pain. She is a pleasant 67 y.o. female. She is here today as a referral from Dr. Brock. Primary complaint is pain and discomfort. She is s/p a left TKA on 08/20/[address] Brock in [place]. Last evaluated on 07/15/22, aspiration and subsequent injection was administered. The injection worked well for approx three months and aspiration was negative. Recently the pain has returned but is less than before 07/07/22. The pain is locatedon the medial side of knee. She reports she doesn't trust her ambulation, her muscles feel sore andachy. She also reports she follows pain management in [place] for chronic back pain. Her pain is a 6/10 upon exam today. She is here today for a repeat evaluation. PHYSICAL EXAM: This is an alert, oriented, and age-appropriate female. She is in no distress. Pleasant and cooperative. EXTREMITIES: The lower extremities have no gross deformities. Normal stability.Skin Intact. 5/5 motor. Intact sensation. Normal neurovascular status. Normal coordination. Range of motion upon exam today is 2-120. Mid flexion and flexion laxity. Painful range of motion. Full motion of hip. No pain. No impingement. No instability. Contralateral leg has normal alignment. Full motion. No pain. No impingement. No instability. IMAGING: Plain film radiographs were reviewed. She has a left total knee arthroplasty in fair position and alignment, some obliquity of the patella, imaging remains unchanged. IMPRESSION: 1.) Pain, left TJR. 2.) Mid flexion and flexion instability, left TKA. 3.) Possible cement debonding, left TKA. 4.) Status post a left TKA on 08/20/[address] Brock in [place]. PLAN: I have reviewed my findings with patient. We have gone over the diagnosis, the radiographs, physical exam findings, past surgical/medical history and treatment options. We re-discussed the various reasons for persistent prosthetic pain including prosthetic infection vrs prosthetic instabilityvrs prosthetic loosening vrs prosthetic cement debonding. We then discussed conservative vrs surgical interventions including bracing vrs oral antiinflammatory vrs knee revision. She desires to attempt conservative treatment to determine for what symptoms improve over the next 3-4 months. Pending failure of conservative treatment, she will call my office and we will further discuss surgical interv entions. All questions were answered to her satisfaction. I have reviewed the findings of my clinical staff below and agree with their assessment. Vitals: 03/03/23 1455 Temp: 97 degrees F (36.1 degrees C) TempSrc: Temporal Weight: 98.4 kg (217 lb) Height: 1.6 m (5' 3 ) Pain Presence of Pain: complains of pain/discomfort Pain Location: knee, left Select Pain Scale: DVPRS (Defense and Veterans Pain Rating Scale) (Adult- Cognitively Intact) Pain Location: knee, left Select Pain Scale: DVPRS (Defense and Veterans Pain Rating Scale) (Adult- Cognitively Intact) Recent Labs No results found for: CRP No results found for: SEDRATE No results found for: WBC , WBCCOUNT , WBCFETAL , HGB , HCT , PLATELET , MCV Past Medical History: Diagnosis Date Essential hypertension, benign Past Surgical History: Procedure Laterality Date ARTHROPLASTY KNEE TOTAL Left 08/20/2021 ARTHROPLASTY KNEE TOTAL Right 2018 APPENDECTOMY ARTHROSCOPY KNEE Right times three BACK SURGERY Spinal fusion 2020 lumbar BLADDER SURGERY prolapsed HYSTERECTOMY RELEASE CARPAL TUNNEL Left REMOVAL CATARACT (PEM) Bilateral SHOULDER SURGERY Right Rotator No family history on file. Social History Socioeconomic History Marital status: Tobacco Use Smoking status: Never Smokeless tobacco: Never Vaping Use Vaping Use: Never used Substance and Sexual Activity Alcohol use: Yes Comment: occasional Drug use: Never Current Outpatient Medications: aspirin/placebo, M-1657, 81 mg tablet, Take 1 tablet by mouth daily., Disp: , Rfl: Calcium Carbonate-Vit D-Min (CALCIUM 1200 PO), Take by mouth., Disp: , Rfl: celecoxib 200 MG capsule, Take 1 capsule by mouth 2 times daily., Disp: , Rfl: CRANBERRY PO, Take by mouth., Disp: , Rfl: docusate 100 MG capsule, Take 1 capsule by mouth daily., Disp: , Rfl: metoprolol 25 MG tab regular release, Take 1 tablet by mouth 2 times daily. Takes half of tablet twice a day, Disp: , Rfl: Pregabalin 50 MG capsule, Take 1 capsule by mouth at bedtime., Disp: , Rfl: acetaminophen 325 MG tablet, Take 325 mg by mouth every 4 hours., Disp: , Rfl: diphenhydrAMINE 25 MG tablet, Take 25 mg by mouth at bedtime as needed., Disp: , Rfl: Melatonin 10 MG tablet, Take by mouth., Disp: , Rfl: Allergies Allergen Reactions Amoxicillin [facility] Evaluation + Plan note Extracted from: Title:Pain Managment Follow up Author:Louise John Date:02/19/23 Impression and Plan Patient is a 67-year-old female with a past medical history significant for sacroiliitis and lumbosacral spondylosis. Recent left-sided sacroiliac joint injection gave her 100% relief for 2 weeks followed by 50% continued relief. At this time, she states that things are better. She still has certain maneuvers that can cause the pain to increase but she states that overall she is doing better. She is more comfortable. She is happier. At this time she states that things are improved. We discussed trialing low-dose Lyrica to see if we can get a little bit better control of her pain. OARRS was reviewed. Potential side effects of the medication were discussed. At this time, she is going to start at 50 mg nightly. Follow-up in 1 month. Call the clinic sooner if necessary. ANN score: 24% Future Appointments Appointment Date:04/02/2023 09:45:00 AM Scheduled Provider:Louise Owusu PA-C Location[facility] Appointment Type:Pain Management - Follow Up (FT) [facility]06-07-2023 NoteProcedure: Diagnostic intra- articular injection of the left sacroiliac joint under fluoroscopic guidance Diagnosis: Sacroiliitis Solution: 1 mL of 0.25% bupivacaine and 1 mL of Decadron 10 mg. 2 mg total Contrast: 1 mL Isovue Local anesthetic: 2 mL lidocaine 1% Anesthesia: Local Complications: None Notes: The patient has a greater than 3-month history of severe left-sided axial lower back pain below the level of L5 without evidence of neurogenic claudication or radiculopathy. The patient's examination is notable for tenderness over the sacroiliac joint along with a positive NATALY test, thigh t hrust test, and Gaenslen test on the left side. The patient's imaging is notable for degenerative changes in the sacroiliac joints. The patient has had 6 weeks of conservative management with medications and exercise therapy. Patient is compliant with a home exercise program for this issue. The patient does not desire surgery. The pain significantly limits the patient's function and quality of life. Specifically the patient the pain keeps her from standing for 10 minutes, walking 1/4 mile, or lifting anything other than very light weights. After informed consent was obtained the patient was brought to the OR and placed in the prone position. The area in question was prepped and draped in sterile fashion. An AP fluoroscopic view of the sacrum was obtained and after local anesthetic was administered into the skin and a 22-gauge Quinckeneedle was inserted into the skin and advanced into the left sacroiliac joint under intermittent fluoroscopic guidance. Proper needle position was confirmed by AP and contralateral oblique fluoroscopic views. Contrast was administered in both views and demonstrated appropriate spread. The local anesthetic steroid solution was injected incrementally. The needle was removed. Bleeding was nil. The pa tient tolerated the procedure well and was transferred to the recovery room in good condition.[facility]:Result Comment: Electronically Signed By: Garrett Dennison MD\.br\Date and Time Signed: 01/20/23 17:09 [id number]:127 [facility]06-07-[facility] Evaluation + Plan noteExtracted from: Title:Clinical Document Author:Pablo Dennison MD Date:01/20/23 Procedure: Diagnostic intra- articular injection of the left sacroiliac joint under fluoroscopic guidance Diagnosis: Sacroiliitis Solution: 1 mL of 0.25% bupivacaine and 1 mL of Decadron 10 mg. 2 mg total Contrast: 1 mL Isovue Local anesthetic: 2 mL lidocaine 1% Anesthesia: Local Complications: None Notes: The patient has a greater than 3-month history of severe left-sided axial lower back pain below the level of L5 without evidence of neurogenic claudication or radiculopathy. The patient's examination is notable for tenderness over the sacroiliac joint along with a positive NATALY test, thigh thrust test, and Gaenslen test on the left side. The patient's imaging is notable for degenerative changes in the sacroiliac joints. The patient has had 6 weeks of conservative management with medications and exercise therapy. Patient is compliant with a home exercise program for this issue. The patient does not desire surgery. The pain significantly limits the patient's function and quality of life. Specifically the patient the pain keeps her from standing for 10 minutes, walking 1/4 mile, or lifting anything other than very light weights. After informed consent was obtained the patient was brought to the OR and placed in the prone position. The area in question was prepped and draped in sterile fashion. An AP fluoroscopic view of the sacrum was obtained and after local anesthetic was administered into the skin and a 22-gauge Quincke needle was inserted into the skin and advanced into the left sacroiliac joint under intermittent fluoroscopic guidance. Proper needle position was confirmed by AP and contralateral oblique fluoroscopic views. Contrast was administered in both views and demonstrated appropriate spread. The local anesthetic steroid solution was injected incrementally. The needle was removed. Bleeding was nil. The patient tolerated the procedure well and was transferred to the recovery room in good condition. Future Appointments Appointment Date:02/19/2023 10:45:00 AM Scheduled Provider:Louise Owusu PA-C Location:[facility] Appointment Type:Pain Management - Follow Up (FT) Appointment Date:03/25/2023 11:00:00 AM Scheduled Provider:Garrett Dennison MD Location:[facility] Appointment Type:Pain Management - Follow Up (FT) [facility]05-04-2023 Evaluation + Plan noteExtracted from: Title:Clinical Document Author:Pablo Dennison MD Date:12/17/22 Chief complaint: Left-sided low back pain History of present illness: This is a 67-year-old female here for a chief complaint of left-sided lower back pain. The patient rates the pain as a 4 out of 10. At her last visit she underwent a set of left-sided diagnostic medial branch blocks for the L5-S1 facet joint. She reports 50% relief although the relief was not immediate. The pain has not completely gone away but she is doing better. She does not have any radiating pain down the leg. She denies any right-sided pain. She does not have any radiating pain down the leg. She reports that the pain does not go away when she sits but it is worse with standing and walking. At this moment she is able to function normally. She has some focal pain in the left knee but is following with orthopedics for this. She is not requiring any pain medications. She has maintain a home exercise program for her spine which helps. She denies numbness or weakness. The patient denies additional neurologic symptoms or issues with bladder or bowel control. The patient's past medical, surgical, and social history along with medications and allergies were reviewed. Review of systems was done on 10 systems Physical examination: General: Pleasant white female in no acute distress. Patient appears well- nourished. Vital signs stable Head exam: Head is normocephalic and external ears are normal Neck exam: No tenderness Cardiovascular exam: No signs of poor perfusion and no peripheral edema Respiratory exam: Breathing is unlabored and there is no wheezing present Abdomen exam: Abdomen soft and nondistended Back exam: Left-sided sacroiliac/paraspinal tenderness below the level of L5. Positive Jermaine sign, Gaenslen test, and thigh thrust test on the left Musculoskeletal exam: Strength 5 out of 5. Muscle tone is normal. Neurologic exam: Sensation intact. Reflexes diminished but symmetric. Psych exam: Affect is appropriate. Alert and oriented Skin exam: No lesions Assessment: The patient's signs and symptoms are consistent with sacroiliitis and lumbosacral spondylosis. We reviewed the patient's imaging which showed degenerative changes in both the left L5-S1 facet joint but also in the left sacroiliac joint. Given her lack of immediate relief from the medial branch blocks I think the sacroiliac joint is the primary pain generator. Oswestry disability index score was 24% OARRS report was reviewed and was appropriate Plan: I addressed options with her. She is doing relatively well so we can hold off on further interventions for now. I advised her that if the sacral pain were to intensify then we could proceed with a left sacroiliac joint. For now she will continue with her exercise program for her spine. We discussed the potential risks and benefits of this plan and the patient was in agreement to proceed. I will see the patient for follow-up in 3 months or sooner if needed for repeat evaluation. Future Appointments Appointment Date:03/25/2023 11:00:00 AM Scheduled Provider:Garrett Dennison MD Location[facility] Appointment Type:Pain Management - Follow Up (FT) [facility]04-05-2023 NoteProcedure: Left-sided diagnostic lumbar medial branch blocks under fluoroscopic guidance of the medial branches of L4 and L5 covering the left L5-S1 facet joint Diagnosis: Lumbosacral spondylosis Solution: 1 mL of 0.5% bupivacaine total. 0.5 mL per branch Anesthesia: Local Complications: None Notes the patient has a greater than 3-month history of severe left-sided axial low back pain. The patient does not have an untreated radiculopathy or stenosis in the region in question. The patient does not desire spine surgery. The patient has had 6 weeks of conservative management with medications and therapy exercises and is compliant with a home exercise program for this issue. The patient'sexamination is notable for left-sided lumbar paraspinal tenderness which is exacerbated with facet loading. The patient's imaging is notable for spondylosis and facet arthropathy at the levels in question. The pain significantly impairs the patient's function and quality of life. Specifically she cannot stand for 10 minutes without severe pain. After informed consent was obtained the patient was brought to the OR and placed in the prone position. The area in question was prepped and draped in sterile fashion. An ipsilateral oblique fluoroscopic view of the lumbosacral spine was obtained and a 25-gauge Quincke needle was inserted into the skin and advanced to the junction of the superior articular process and transverse process of the [id number] and to the sacral ala on the left side under intermittent fluoroscopic guidance. Proper needle position was confirmed by AP and ipsilateral oblique fluoroscopic views. Aspiration at each site was negative. The local anesthetic solution was injected at each site. The 2 needles were then removed. Bleeding was nil. The patient tolerated the procedure well and was transferred to the recovery room in good condition.[facility] Comment on above:Result Comment: Electronically Signed By: Garrett Dennison MD\.br\Date and Time Signed: 11/18/22 17:01 [id number] Note [id number]:127[facility] 11-18-20[facility] Evaluation + Plan noteExtracted from: Title:Clinical Document Author:Pablo Dennison MD Date:11/18/22 Procedure: Left-sided diagno stic lumbar medial branch blocks under fluoroscopic guidance of the medial branches of L4 and L5 covering the left L5-S1 facet joint Diagnosis: Lumbosacral spondylosis Solution: 1 mL of 0.5% bupivacaine total. 0.5 mL per branch Anesthesia: Local Complications: None Notes the patient has a greater than 3-month history of severe left-sided axial low back pain. The patient does not have an untreated radiculopathy or stenosis in the region in question. The patient does not desire spine surgery. The patient has had 6 weeks of conservative management with medications and therapy exercises and is compliant with a home exercise program for this issue. The patient's examination is notable for left-sided lumbar paraspinal tenderness which is exacerbated with facet loading. The patient's imaging is notable for spondylosis and facet arthropathy at the levels in question. The pain significantly impairs the patient's function and quality of life. Specifically she cannot stand for 10 minutes without severe pain. After informed consent was obtained the patient was brought to the OR and placed in the prone position. The area in question was prepped and draped in sterile fashion. An ipsilateral oblique fluoroscopic view of the lumbosacral spine was obtained and a 25-gauge Quincke needle was inserted into the skin and advanced to the junction of the superior articular process and transverse process of the L5 vertebrae and to the sacral ala on the left side under intermittent fluoroscopic guidance. Proper needle position was confirmed by AP and ipsilateral oblique fluoroscopic views. Aspiration at each site was negative. The local anesthetic solution was injected at each site. The 2 needles were then removed. Bleeding was nil. The patient tolerated the procedure well and was transferred to the recovery room in good condition. Future Appointments Appointment Date:12/17/2022 10:30:00 AM Scheduled Provider:Garrett Dennison MD Location[facility] Appointment Type:Pain Management - Follow Up (FT) [facility]03-29-2023 Evaluation + Plan noteExtracted from: Title:Clinical Document Author:Pablo Dennison MD Date:11/11/22 Chief complaint: Left-sided low back pain History of present illness: This is a 67-year-old female here for chief complaint of left-sided lower back pain. She reports that since her last visit the symptoms have been persistent and unchanged. The pain is constant but much more severe when she is standing and walking. At worst it gets up to an 8 out of 10. She describes it as a sharp sensation. She denies radiation down the extremities. She denies any significant right-sided pain. She has had this severe pain for over 3 months. She denies numbness, tingling, weakness, or loss of bladder or bowel control. She has done 6 weeks of conservative management with physical therapy and NSAIDs. She had a consultation with her spine surgeon who did not recommend surgery. She reports that the pain is severe enough that she can only lift light weights, walks less than 1/4 mile, and can only stand for 10 minutes at most. She also has some right shoulder pain particularly when she raises her right arm above her head. She has had a rotator cuff issue in the past and reports that this feels similar. She has been doing the therapy exercises that she learned previously for that and reports they have been helpful. The patient denies additional neurologic symptoms or issues with bladder or bowel control. The patient's past medical, surgical, and social history along with medications and allergies were reviewed. Review of systems was done on 10 systems Physical examination: General: Pleasant white male in no acute distress. Vital signs stable Head exam: Head is normocephalic and external ears normal Neck exam: No tenderness Cardiovascular exam: No signs of poor perfusion and no peripheral edema Respiratory exam: Breathing is unlabored and there is no wheezing present Abdomen exam: Abdomen soft and nondistended Back exam: Left-sided lower lumbar paraspinal tenderness at the L5-S1 level exacerbated with facet loading Musculoskeletal exam: Strength 5 out of 5. Muscle tone is normal. Pain with abduction of the right shoulder past 90 degrees Neurologic exam: Sensation intact. Reflexes diminished but symmetric. Psych exam: Affect is appropriate he is alert and oriented Skin exam: No lesions Assessment: This is a 67-year-old female seen for chief complaint of left-sided axial lower back pain. I think her signs and symptoms are most consistent with lumbosacral spondylosis and facet arthropathy. At the left L5-S1 facet joint given that she has had a fusion at L4-5 this would be a logical consequence. She may also have sacroiliitis on that side however her tenderness seems like it is exactly at the lumbosacral level so I think facet pathology is more likely. She does not have any evidence of neurogenic claudication or radiculopathy. Her x-ray did show degenerative changes in the left L5-S1 facet joint. She also has right shoulder pain consistent with right shoulder arthropathy and I reviewed her right shoulder x-ray with her as well. It was notable for some degenerative changes along with an inferior spur at the AC joint. This would predispose her to rotator cuff impingement. This is a manageable issue for her at this current moment so I advised her to continue with the range of motion exercises for her shoulder. Leonard disability index was 58 OARRS was reviewed and was appropriate Plan: We discussed options and since she has failed appropriate conservative management with therapy and NSAIDs and is having severe left-sided axial pain that is limiting her function and was not recommended for surgery we will proceed with a trial of diagnostic medial branch blocks for the left L5-S1 facet joint. I went over the pros and cons of this plan and she was in agreement to proceed. If she has a good temporary response we could consider a radiofrequency ablation for long-term relief. I instructed her to continue with her home exercises for both her back and her shoulder and I will see her for follow-up 2 weeks after the procedure for repeat evaluation. Future Appointments Appointment Date:11/18/2022 01:15:00 PM Scheduled Provider: Location:[facility] Appointment Type:Surgery FT Appointment Date:12/17/2022 10:30:00 AM Scheduled Provider:Garrett Dennison MD Location[facility] Appointment Type:Pain Management - Follow Up (FT) [facility]03-25-2023 NoteHOSPITAL REGULATIONS: All Positive and Important Negative Findings Shall Be Recorded Date of Consultation: 11/05/2022 Attending Physician: Eder Gonzalez M.D. Consulting Physician: Garrett Dennison M.D. CHIEF COMPLAINT: Left-sided low back and hip pain. HISTORY OF PRESENT ILLNESS: This is a 67-year-old female seen for a chief complaint of left-sided low back and hip pain. She rates her symptoms currently as 7/10. At worst it will get to a 9/10. She describes it as an aching sensation that starts in the left lower back and radiates into the buttock. She has had these symptoms for several years. She had back surgery several years ago with Amilcar Yates which consisted of L4-5 fusion. She reports that the surgery was helpful, but she has had this back pain now for a long time. She had a recent consultation with Dr. Gonzalez, who did not think that her symptoms were due to neural compression. He felt they were due to a joint issue and that she could maybe benefit from injections. She does not have any significant right-sided pain in the lower body. She states that the pain interrupts her function, particularly her standing and walking. She has done physical therapy for this issue for over six weeks with limited benefit. She does home exercises which help somewhat. She has tried antiinflammatories and Tylenol with limited benefit. She does not want to be on anything that could be habit forming. She also notes that she has had pain in the neck and right shoulder for several months. She could not recall a causative event. She denies any left-sided symptoms. She denies numbness, tingling, weakness, or loss of bladder or bowel control. Her past medical, social, family history along with medications and allergies is available and was reviewed. REVIEW OF SYSTEMS: Review of systems was done on ten systems. PHYSICAL EXAMINATION: General: She is a pleasant white female. Vital signs including blood pressure, heart rate, and respirations are stable. Head: Head is normocephalic and external ears are normal. Neck: Neck is supple with no lesions. Cardiovascular: No signs of poor perfusion, no peripheral edema. Lungs: Breathing is unlabored and there is no wheezing present. Abdomen: Abdomen is soft and nondistended. Back: There is left-sided lower lumbar and sacroiliac tenderness. She has a positive Jermaine sign, Gaenslen test, and thigh thrust test on the left. Musculoskeletal: Strength is 5/5. Muscle tone is normal. She has pain with abduction of the right shoulder past 90 degrees. Neurologic: Sensation is intact throughout. Her reflexes are diminished but symmetric. Psychiatric: Affect is appropriate and she is alert and oriented. ASSESSMENT: This is a 67-year-old female seen for a chief complaint of severe left-sided axial lower back pain. She does not have evidence of radiculopathy or neurogenic claudication. Her imaging wasnotable for spondylosis and sclerosis of the L5-S1 facet joint on the left. I reviewed an [place] Automated Rx Report on her, which was benign. Her Oswestry Disability Index was 23. She also has right-sided neck and arm pain consistent with cervical spondylosis versus right shoulder arthropathy. I reviewed her x-rays from today which showed some mild degenerative changes in the acromioclavicular joint of the right shoulder as well as some disk space narrowing at C5-6, C6-7, and C7-T1 in her cervical spine as well multilevel facet arthropathy. PLAN: I addressed the options with her, and since she has had severe left-sided lower back and sacroiliac pain that has not responded to over six weeks of conservative management, we will proceed with a trial diagnostic medial branch blocks for the left L5-S1 facet joint under fluoroscopy at her next visit. I went over the pros and cons of this plan, and she was in agreement to proceed. With regard to her neck and shoulder, we may have the option for interventions there as well, but we will seehow she does with the lumbar injections first. I went over the pros and cons of this plan, and she was in agreement to proceed. I will see her for followup four weeks afterward for repeat evaluation. Over 45 minutes were spent caring for the patient in total. Garrett Dennison M.D. ca Dictated: 11/05/2022 [id number] Transcribed: 11/06/2022 cc: Eder Gonzalez M.D.[facility] HospitalComment on above:Result Comment: Electronically Signed By: Juma DUBON, Garrett\.br\Date and Time Signed: 11/07/22 19:05 [id number] Evaluation note* Encounter Date Diagnosis Assessment Notes Treatment Notes Treatment Clinical Notes Oct, History of lumbar fusion (ICD-10 - Z98.1) I independently reviewed the MRI of the lumbar spine and the plain x-ray and the report. The patient has a good fusion at L4-5 has no malalignment or instability at L3-4; she has some mild canal narrowing but no yordan stenosis or nerve root impingement. Her symptoms are consistent with left sacroiliac inflammation. I think this is secondary to her lumbar fusion. She would best be treated with injections, I have sent her to pain management for the injection of the left sacroiliac joint. Oct, Inflammation of left sacroiliac joint (ICD-10 - M46.1) [facility] Other 11-30-2022 History of Present illness Narrative* Jimenez Campbell LPN - 07/15/2022 9:30 AM EST Ortho Nurse - Patient Intake Room#: 3 Left knee pain of 5, TKA 08-20-21 Dr Brock in [facility], she has been back to him and hesees no problem, she feels like something is behind her knee and she cannot straighten it, an MRI was completed Date: 07/15/2022 10:16 AM Patient: Lilo Reyes MR#: [id number] : 1955 Age: 67 y.o. Referring Physician: Jamal Brock DO Insurance: Payor: MEDICARE / Plan: MEDICARE A AND B / Product Type: *No Product type* / Chief Complaint Patient presents with Left Knee - Pain Visit Vitals Temp 96.2 F (35.7 C) (Temporal) Ht 1.6 m (5' 3 ) Wt 96.6 kg (213 lb) BMI 37.73 kg/m Pain Presence of Pain: complains of pain/discomfort Pain Location: knee, left Select Pain Scale: DVPRS (Defense and Veterans Pain Rating Scale) (Adult- Cognitively Intact) Pain Location: knee, left Select Pain Scale: DVPRS (Defense and Veterans Pain Rating Scale) (Adult- Cognitively Intact) Recent Labs No results found for: CRP No results found for: SEDRATE No results found for: WBC, WBCCOUNT, WBCFETAL, HGB, HCT, PLATELET, MCV History No past medical history on file. Past Surgical History: Procedure Laterality Date ARTHROPLASTY KNEE TOTAL Left 08/20/2021 ARTHROPLASTY KNEE TOTAL Right 2017 APPENDECTOMY ARTHROSCOPY KNEE Right times three BACK SURGERY Spinal fusion 2020 lumbar BLADDER SURGERY prolapsed HYSTERECTOMY RELEASE CARPAL TUNNEL Left SHOULDER SURGERY Right Rotator Family History: Her family history is not on file. Social History: Her reports that she has never smoked. She has never used smokeless tobacco. She reports current alcohol use. She reports that she does not use drugs. Additional Social History Y N Notes Do you live alone? [] [x] Who lives with you: Do you have children? [x] [] How many: 2 Do you currently work? [] [x] What type of work do you do: Do you have stairs in the home? [x] [] How many do you have to climb to enter your home: What services do you currently receive at home? [] [x] Name: Do you have transportation to go to outpatient therapy if needed? [x] [] What Equipment do you have at home? [x] [] []Walker, []Crutches, []Commode Chair, []Shower []Chair,[]cane, []bracing Are you followed by a cap lining machine operator? [] [x] Name: Are you followed by pain management? [] [x] Name: Are you followed by any other specialists? [] [x] Name: Outpatient Medications Prior to Visit Medication Sig Dispense Refill acetaminophen 325 MG tablet Take 325 mg by mouth every 4 hours. Calcium Carbonate-Vit D-Min (CALCIUM 1200 PO) Take by mouth. celecoxib 200 MG capsule 1 capsule with food Orally Once a day for 30 day(s) CRANBERRY PO Take by mouth. diphenhydrAMINE 25 MG tablet Take 25 mg by mouth at bedtime as needed. docusate 100 MG capsule Take 100 mg by mouth daily. Melatonin 10 MG tablet Take by mouth. metoprolol 25 MG tab regular release No facility-administered medications prior to visit. Current Outpatient Medications: acetaminophen 325 MG tablet, Take 325 mg by mouth every 4 hours., Disp: , Rfl: Calcium Carbonate-Vit D-Min (CALCIUM 1200 PO), Take by mouth., Disp: , Rfl: celecoxib 200 MG capsule, 1 capsule with food Orally Once a day for 30 day(s), Disp: , Rfl: CRANBERRY PO, Take by mouth., Disp: , Rfl: diphenhydrAMINE 25 MG tablet, Take 25 mg by mouth at bedtime as needed., Disp: , Rfl: docusate 100 MG capsule, Take 100 mg by mouth daily., Disp: , Rfl: Melatonin 10 MG tablet, Take by mouth., Disp: , Rfl: metoprolol 25 MG tab regular release, , Disp: , Rfl: Allergies: She is allergic to amoxicillin. Y N Are you allergic to any metals? [] [x] If yes, what metals: Review of Systems System Y N Symptoms Constitutional [] [x] Weight Loss [] [x] Weight Gain [] [x] Chronic Fever [] [x] Insomnia Eyes [] [x] Resent Vision Change [] [x] Cataracts [] [x] Glaucoma [] [x] Any Hx of Metal Fragments in the Eye ENT [] [x] Loss of hearing [] [x] Hearing Aids [] [x] Seasonal Allergies [] [x] Dental Issues Cardiovascular [] [x] Chest Pain [] [x] Angina [] [x] Stent [x] [] Hypertension [] [x] Heart Murmur [] [x] Irregular Pulse [] [x] Pacemaker [] [x] Palpitations [] [x] High cholesterol Respiratory [] [x] Wheezing [] [x] Shortness of Breath [] [x] Pneumonia [] [x] Bronchitis [] [x] Sleep Apnea [] [x] COPD [] [x] Date/ LOC of last CXR: Gastrointestinal [] [x] Heartburn [] [x] Indigestion [] [x] Constipation [] [x] Ulcer [] [x] GI Stomach Bleed [] [x] Diarrhea [] [x] Colon Cancer [] [x] Acid Reflux [] [x] Blood in Stools Musculoskeletal [x] [] Arthritis [] [x] Muscle Weakness [x] [] Joint Pain [x] [] Back Pain [] [x] Fibromyalgia [] [x] Bone Infection [] [x] Swelling - Multiple Joints [] [x] Reflex Sympathetic Dystrophy Skin [] [x] Chronic Rash [] [x] Ulcers [] [x] Eczema [] [x] Psoriasis [] [x] Skin Cancer [] [x] Melanoma Neurologic [] [x] Numbness [] [x] Weakness or loss of sensation in arms or legs [] [x] Leg Pain / Sciatica [] [x] Headaches [] [x] Loss of bowel or bladder control Psychiatric [] [x] Anxiety [] [x] Claustrophobia [] [x] Other Psychiatric Problems Hematologic [] [x] Easy Bruising [] [x] Easy Bleeding [] [x] Blood Transfusion Date: Endocrine [] [x] Hypothyroid [] [x] Hyperthyroid [] [x] Hot Flashes [] [x] Hormone Replacement [x] [] Prednisone Use Does pt have dentures? no * Braulio Garay MD - 07/15/2022 9:30 AM ESTAssociated Order(s): LARGE JOINT/BURSA INJECTION AND/OR ASPIRATION: L knee; LARGE JOINT/BURSA INJECTION AND/OR ASPIRATION: L knee Post-Procedure Diagnose(s): 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 joint, sequela HPI: Patient is here today to be evaluated for left knee pain. She is a pleasant 67 y.o. female. She is here today as a referral from Dr. Brock. Primary complaint is pain and discomfort. She hasexperienced a progressive decline in physical function and quality of life secondary to the discomfort in the left knee. She is s/p a left TKA on 08/20/[address] Brock in [place]. She states she feels something is located behind the knee not allowing her to straighten the leg. She states she hasto do steps one at a time. Her pain is a 5/10 upon exam today. She is here today for evaluation andto determine treatment options. PHYSICAL EXAM: This is an alert, oriented, and age-appropriate female. She is in no distress. Pleasant and cooperative. EXTREMITIES: The lower extremities have no gross deformities. Normal stability.Skin Intact. 5/5 motor. Intact sensation. Normal neurovascular status. Normal coordination. Range of motion upon exam today is 3-120 of the left knee. Mild laxity, similar to right TKA. Full motion of hip. No pain. No impingement. No instability. Contralateral leg has normal alignment. Full motion.No pain. No impingement. No instability. IMAGING: Plain film radiographs were reviewed. She has a left total knee arthroplasty in fair position and alignment, some obliquity of the patella. IMPRESSION: 1.) Pain, left TJR. 2.) Possible cement debonding, left TKA. 3.) Possible soft tissue entrapment, left TKA. 4.) Status post a left TKA on 08/20/[address] Brock in [place]. PLAN: I have reviewed my findings with patient. We have gone over the diagnosis, the radiographs, physical exam findings, past surgical/medical history and treatment options. We discussed the variousreasons for persistent prosthetic pain including prosthetic infection vrs prosthetic instability vrs prosthetic loosening vrs prosthetic cement debonding. For today, we will start with aspiration andsubsequent injection to further evaluate and diagnose symptoms. I will see him back in office should symptoms not improve. He understands and has no additional questions. ASPIRATION: After explanation of the risks injecting prosthetic knee, benefits and alternatives, the lateral aspect of the knee was prepped in a sterile standard fashion. Local Lidocaine was used to anesthetize the region. The area was re-prepped and an aspiration was performed with an 18 gauge needle. 10ml of yellow red tinged fluid was obtained and will be sent for additional testing including alpha defensins, synovial CRP, cell count with differential and noel culture. The region was cleaned and a dressing applied. The patient tolerated the aspiration well. INJECTION: After explanations of the risks of injecting a prosthetic knee, benefits and alternatives and obtaining verbal consent, an injection in the left knee was administered. She tolerated the injection with no complaints. Aftercare instructions were provided with all questions being answered. She has no further questions at this time. LARGE JOINT/BURSA INJECTION AND/OR ASPIRATION: L knee Date/Time: 07/15/2022 9:30 AM Supporting Documentation Indications: pain Procedure Details: Location: knee - L knee Local Anesthetic: lidocaine 1% Needle size: 18 G Medication Verification: I have personally verified and performed the final check of the medication(s) used in this procedure prior to administration. The following items were included during the verification process for medication(s) administered: drug name, strength, volume, expiration, physical integrity and appearance of the medication(s). Patient tolerance: patient tolerated the procedure well with no immediate complications The patient was prepped with Chloraprep. LARGE JOINT/BURSA INJECTION AND/OR ASPIRATION: L knee Date/Time: 07/15/2022 9:30 AM Supporting Documentation Indications: pain Procedure Details: Location: knee - L knee Local Anesthetic: ethyl chloride (cold spray) Needle size: 22 G Medication Verification: I have personally verified and performed the final check of the medication(s) used in this procedure prior to administration. The following items were included during the verification process for medication(s) administered: drug name, strength, volume, expiration, physical integrity and appearance of the medication(s). Medications administered: 5 mL lidocaine 1% (PF) 1 %;1 mL triamcinolone 40 MG/ML The patient was prepped with Betadine. I have reviewed the findings of my clinical staff below and agree with their assessment. Vitals: 07/15/22 1005 Temp: 96.2 degrees F (35.7 degrees C) TempSrc: Temporal Weight: 96.6 kg (213 lb) Height: 1.6 m (5' 3 ) Pain Presence of Pain: complains of pain/discomfort Pain Location: knee, left Select Pain Scale: DVPRS (Defense and Veterans Pain Rating Scale) (Adult- Cognitively Intact) Pain Location: knee, left Select Pain Scale: DVPRS (Defense and Veterans Pain Rating Scale) (Adult- Cognitively Intact) Recent Labs No results found for: CRP No results found for: SEDRATE No results found for: WBC, WBCCOUNT, WBCFETAL, HGB, HCT, PLATELET, MCV No past medical history on file. Past Surgical History: Procedure Laterality Date ARTHROPLASTY KNEE TOTAL Left 08/20/2021 ARTHROPLASTY KNEE TOTAL Right 2017 APPENDECTOMY ARTHROSCOPY KNEE Right times three BACK SURGERY Spinal fusion 2020 lumbar BLADDER SURGERY prolapsed HYSTERECTOMY RELEASE CARPAL TUNNEL Left REMOVAL CATARACT (PEM) Bilateral SHOULDER SURGERY Right Rotator History reviewed. No pertinent family history. Social History Socioeconomic History Marital status: Tobacco Use Smoking status: Never Smokeless tobacco: Never Substance and Sexual Activity Alcohol use: Yes Comment: occasional Drug use: Never Current Outpatient Medications: acetaminophen 325 MG tablet, Take 325 mg by mouth every 4 hours., Disp: , Rfl: Calcium Carbonate-Vit D-Min (CALCIUM 1200 PO), Take by mouth., Disp: , Rfl: celecoxib 200 MG capsule, 1 capsule with food Orally Once a day for 30 day(s), Disp: , Rfl: CRANBERRY PO, Take by mouth., Disp: , Rfl: diphenhydrAMINE 25 MG tablet, Take 25 mg by mouth at bedtime as needed., Disp: , Rfl: docusate 100 MG capsule, Take 100 mg by mouth daily., Disp: , Rfl: Melatonin 10 MG tablet, Take by mouth., Disp: , Rfl: metoprolol 25 MG tab regular release, , Disp: , Rfl: Allergies Allergen Reactions Amoxicillin Swelling documented [facility] + Plan note No data available for this section [facility] Future Appointments Appointment Date:04/02/2023 09:45:00 AM Scheduled Provider:Louise Owusu PA-C Location:[facility] Appointment Type:Pain Management - Follow Up ([facility]) [facility] Future Appointments Appointment Date:07/23/2023 08:45:00 AM Scheduled Provider:Louise Owusu PA-C Location:[facility] Appointment Type:Pain Management - [facility] Future Appointments Appointment Date:09/07/2023 09:30:00 AM Scheduled Provider: Location:[facility] Appointment Type:BD Bone Density (FT) Appointment Date:11/11/2023 08:45:00 AM Scheduled Provider: Location:[facility] Appointment Type:Surgery FT Future Scheduled Tests Radiology* BD Bone Density DEXA 09/07/23 [facility] Evaluation note* Diagnosis 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 joint, sequela- Primary documented in this encounter [facility]Evaluation noteNo assessment information availableChildren'S Hospital For [facility] Work Phone: Evaluation note* Diagnosis Left knee pain, unspecified chronicity- Primary 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 joint, initial encounter documented in this encounter [facility]* Diagnosis Chronic pain of left knee- Primary Pain in joint, lower leg documented in this encounter 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His[facility] Narrative - Reported* Type Description Date Medical History anemia Medical History Arthritis Medical History cataracts Medical History diabetes mallitus Medical History gallstones Medical History high blood pressure Medical History obesity Medical History Osteoarthrosis Medical History high cholesterol Surgical History CHOLECYSTECTOMY Surgical History HYSTERECTOMY Surgical History RIGHT KNEE REPLACEMENT Surgical History LEFT KNEE ARTHROSCOPY Surgical History RIGHT SHOULDER Hospitalization History see above [facility] Other Hospital Discharge instructions No data available for this section [facility] No data available for this section [facility] HospitalReason for referral (narrative)* Consultation (Routine) - Patient to Arrange Specialty Diagnoses / Procedures Referred By Janneth ravi Referred To Contact Physical Therapy Diagnoses 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 joint, initial encounter Braulio Garay MD [address] [place] [address] Referral ID Status Reason Start Date Expiration Date V isits Requested Visits Authorized [id number] Patient to Arrange 03/03/2023 03/27/2024 1 1 Scheduling Instructions . * Diagnostic X-Ray (Routine) - New Request Specialty Diagnoses / Procedures Referred By Janneth ravi Referred To Contact Diagnoses Left knee pain, unspecified chronicity Procedures XR KNEE LEFT 3 VIEWS Braulio Garay MD [address] [place] [address] Referral ID Status Reason Start Date Expiration Date V isits Requested Visits Authorized [id number] New Request 03/03/2023 03/27/2024 1 1 * Diagnostic X-Ray (Routine) - New Request Specialty Diagnoses / Procedures Referred By Janneth ravi Referred To Contact Diagnoses Left knee pain, unspecified chronicity Procedures XR KNEE LEFT 4+ VIEWS Braulio Garay MD [address] [place] [address] Referral ID Status Reason Start Date Expiration Date V isits Requested Visits Authorized [id number] New Request 02/18/2023 03/14/2024 1 1 [facility] CenterReason for referral (narrative)* (Routine) Specialty Diagnoses / Procedures Referred By Contac t Referred To Contact [facility] [address] [place] [address] Referral ID Status Reason Start Date Expiration Date Visits Re quested Visits Authorized [facility] Summary Purpose Family History No Family History Records FoundNo Family History Records FoundNo Family History Records FoundNo Family History Records FoundNo Family History Records FoundNo Family History Records Found No data available for this section No data available for this section No data available for this section No data available for this section No Family History Records FoundNo Family History Records Found No data available for this section No Family History Records Found Advance Directives No Advanced Directives Records FoundDocuments on File Type Date Recorded 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 Expl anation ACP-Advance Directive ACP-Power of Linux Kernel Developer Documents on File Type Date Recorded 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 Expl anation ACP-Advance Directive ACP-Power of Linux Kernel Developer Latest Code Status on File Code Status Date Activated Date Inactivated Comments Full Code 06/27/2020 2:14 PM 06/29/2020 5:39 PM Latest Code Status on File Code Status Date Activated Date Inactivated Comments Full Code 06/27/2020 2:14 PM Advance Directive Response Recorded Date/ Time Advance Directives No September 02, 2018 3:26pm Documents on File Type Date Recorded 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 Expl anation Advance Directives/Living Will 07/01/2023 1:09 PM Latest Code Status on File Code Status Date Activated Date Inactivated Comments Full Code 07/26/2023 4:18 PM Assessments Diagnosis Pre-op examination Preoperative examination, unspecified Diagnosis Pain Generalized pain Diagnosis Post-op pain Other acute postoperative pain Spondylolisthesis of lumbar region Acquired spondylolisthesis Reason for Referral Status Reason Specialty Diagnoses / Procedures Referre d By Contact Referred To Contact Closed Radiology Diagnoses Pain Procedures Fluoro For Surgical Procedures Amilcar Yates MD [address] [facility] [facility], [address] [place] [address] Specialty Diagnoses / Procedures Referred By Contac t Referred To Contact Diagnoses 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 joint, sequela Procedures XR KNEE LEFT 3 VIEWS Braulio Garay MD [address] [place] [id number] Referral ID Status Reason Start Date Expiration Date V isits Requested Visits Authorized [id number] Pending Review 06/26/2022 07/21/2023 1 1 Specialty Diagnoses / Procedures Referred By Contac t Referred To Contact Diagnoses 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 joint, sequela Procedures XR BONE LENGTH STUDY Braulio Garay MD [address] [place] [id number] Referral ID Status Reason Start Date Expiration Date V isits Requested Visits Authorized [id number] Pending Review 06/26/2022 07/21/2023 1 1 Reason 11/05/22 @ 10:00am Evaluate and Treat L SI Diagnosis 1 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 [facility] 's office request us to fill out form and fax referral to them and they will review the referral and call patient. Referral was fax Milena Escobedo 10/28/2022 08:31:38 AM >Fax letter for appt update FannyMilena 10/29/2022 02:26:19 PM >Received letter back with appt Discharge Instructions * Discharge Instr - Activity* Rachael Mae RN - 06/29/2020 2:27 PM EST Up with walker.safely, as tolerated. Continue to use incentive spirometer hourly. * Discharge Instr - Diet* Rachael Mae RN - 06/29/2020 2:28 PM EST ? Good nutrition is important when healing from an illness, injury, or surgery. Follow any nutrition recommendations given to you during your hospital stay. ? If you were given an oral nutrition supplement while in the hospital, continue to take this supplement at home. You can take it with meals, in-between meals, and/or before bedtime. These supplements can be purchased at most local grocery stores, pharmacies, and [employer]. ? If you have any questions about your diet or nutrition, call the hospital and ask for the dietitian. * Additional Instructions* Amilcar Yates MD - 06/28/2020 medication given may have significant effects after discharge. Therefore on the day of surgery: 1) you should be accompanied by a responsible adult upon discharge and for 24 hours after surgery. Do not drive a motor vehicle, operate machinery, power tools or appliance, drink alcoholic beverages, or make critical decisions for 24 hours 2) Be aware of dizziness, which may cause a fall. Change positions slowly. 3) Eating: you may resume your regular diet but it is better to increase intake slowly with mild foods and working up to your regular diet. 4) Nausea/Vomiting: Nausea and vomiting may occur as you become more active or begin to increase food intake. If this should happen, decrease activity and return to liquids. 5) Pain: Your surgeon may have given you a prescription for pain medication. Take pain medication with food as prescribed. Pain medication may cause constipation, so drink plenty of fluids. You may need to use laxatives. 6) Ice: You may use a cool pack to operative site for 20 min 5-6 times a day as needed for comfort. 8) Dressing: Change dressing as frequently as needed to keep clean and dry. Remove all sticky tape in 5 days. May shower in three days. Do not put soap or soak on the incision until healed. 9) INCREASE ACTIVITY TOLERATED AND INSTRUCTED. GO BY HOW YOU FEEL. 10) See physical therapist when advised by your physician 11) Call your doctor at [phone] for an appointment (or follow up as scheduled). 12) If have an order for X-Rays have done within a week before your follow up appointment. ? Contact OFFICE IF o Increased redness, swelling, excess drainage, and/or pain to surgery site. As well as new onset fevers and or chills. These could signify an infection. o Calf or thigh tenderness to touch as well as increased swelling or redness. This could signify a clot formation. o Numbness or tingling to an area around the incision site or below the incision site (toes). Or ifthe operative extremity becomes cold, blue. o Any rash appears, increased or new onset nausea/vomiting occur. This may indicate a reaction to amedication. o Temp is 38.5 C (101F) 12) If you have any concerns or questions, please call OFFICE. The 24- hour phone is [phone] 13) If you are unable to contact your surgeon, in an emergency situation, go to the nearest hospital emergency room. 14)shower wednesday * Attachments The following attachments cannot be sent through Care Everywhere. * fentanyl transdermal (skin patch) (Citizen Of [place]) * sulfamethoxazole and trimethoprim (oral/injection) (Citizen Of [place]) * acetaminophen and oxycodone (Citizen Of [place]) documented in this encounter History of Present Illness * Quinn Burns - 06/29/2020 11:19 AM EST Spiritual Care Services Summary of Visit: I met PT and her . They were shinto and have priests and nuns in the family. She had backsurgery done and still struggling. She is hoping to get better and go home. We prayed, I anointed her and both of them received Holy Communion. Spiritual Assessment/Intervention/Outcomes: Encounter Summary Services provided to:: Patient, Patient and family together Referral/Consult From:: [facility] Support System: Spouse, Children, Family members Place of [facility]: [facility] Continue Visiting: Yes Complexity of Encounter: Moderate Length of Encounter: 30 minutes Spiritual Assessment Completed: Yes Routine Type: Initial Spiritual/Jainism Type: Spiritual support Assessment: Approachable, Calm, Anxious, Coping, Concerns with suffering Intervention: Active listening, Explored feelings, thoughts, concerns, Prayer, Nurtured hope, Explored coping resources, Anointing, Communion Outcome: Comfort, Expressed gratitude, Expressed feelings of [place], peace, and/or awe, Encouraged, Hopeful, Receptive Sacraments Sacrament of Sick-Anointing: Anointed Communion: Patient received communion Advance Directives (For Healthcare) Pre-existing DNR Comfort Care/DNR Arrest/DNI Order: No Healthcare Directive: Yes, patient has an advance directive for healthcare treatment Type of Healthcare Directive: Living will Copy in Chart: Yes, copy in chart Chart Copy Status :: Active Healthcare Agent Appointed: Healthcare power of defense attorney If you are unable to speak for yourself, does your Healthcare Agent or Legal Spokesperson know yourhealthcare wishes?: Yes Values / Beliefs Do you have any ethnic, cultural, sacramental, or spiritual shinto needs you would like us to beaware of while you are in the hospital?: No Care Plan: Spiritual Care Services To reach a ovens supervisor for emotional and spiritual support, place an [facility] consult request. If a ovens supervisor is needed immediately, dial 0 and ask to page the on-call ovens supervisor. * Amilcar Yates MD - 06/29/2020 10:29 AM EST Patient: Lilo Reyes Unit/Bed: N226/N226-01 Date of : 1955 Acct: [id number] Admitting Diagnosis: Spondylolisthesis of lumbar region [M43.16] Admit Date: 06/27/2020 Hospital Day: 2 Current Medications: Scheduled Meds: metoprolol succinate 12.5 mg Oral BID aspirin 81 mg Oral Daily calcium elemental 500 mg Oral Daily gabapentin 300 mg Oral TID tiZANidine 2 mg Oral Nightly estradiol 0.5 g Vaginal Once per day on Wed Kaylene azelastine HCl 2 spray NOT APPLICABLE BID docusate sodium 100 mg Oral Daily sodium chloride flush 10 mL Intravenous 2 times per day sennosides-docusate sodium 1 tablet Oral BID fentaNYL 1 patch Transdermal Q72H sulfamethoxazole-trimethoprim 1 tablet Oral 2 times per day pill splitter Does not apply Once Continuous Infusions: dextrose 5% and 0.45% NaCl with KCl 20 mEq 100 mL/hr at 06/27/20 1438 PRN Meds:.calcium carbonate, famotidine (PEPCID) injection, sodium chloride flush, morphine OR morphine, promethazine OR ondansetron, oxyCODONE-acetaminophen . dextrose 5% and 0.45% NaCl with KCl 20 mEq 100 mL/hr at 06/27/20 1438 Recent Labs 06/27/20 1252 06/28/20 0650 WBC 7.1 9.3 HGB 11.6* 10.6* HCT 36.8* 32.8* MCV 85.9 83.7 PLT 217 204 Recent Labs 06/27/20 1252 06/28/20 0650 NA 140 139 K 4.1 4.1 CL 107 104 CO2 22 25 BUN 13 9 CREATININE 0.59 0.59 No results for input(s): AST, ALT, ALB, BILIDIR, BILITOT, ALKPHOS in the last 72 hours. No results for input(s): LIPASE, AMYLASE in the last 72 hours. No results for input(s): PROT, INR in the last 72 hours. Imaging Results: Xr Lumbar Spine (2-3 Views) Result Date: 06/28/2020 EXAMINATION: XR LUMBAR SPINE (2-3 VIEWS) CLINICAL HISTORY: Postop COMPARISONS: TOTAL SPINE X-RAYS FROM JUNE 20, 2020 FINDINGS: Status post L4-5 discectomy and spacer placement with posterior fusion including transpedicular screws and vertical bars. There is mild, grade 1 anterolisthesis of L4 and L5. There are posterior midline surgical skin derrick. The remaining vertebral bodies are unremarkable. There is mild intervertebral disc space narrowing. There are no lytic bone lesions. The SI joints are symmetric, the prevertebral soft tissues are within normal limits. Status post L4-5 discectomy and fusion. Fluoro For Surgical Procedures Result Date: 06/27/2020 FLUORO FOR SURGICAL PROCEDURES : 06/27/2020 9:36 AM CLINICAL HISTORY: R52 Pain ICD10. COMPARISON: None available. Intraoperative fluoroscopy was provided for Dr. Yates procedure. A total of 57.8 seconds of fluoroscopy was used, with 5 fluoroscopic stills saved. No diagnostic images were obtained. Please see Dr. Yates surgical notes for completeness. Xr Spine Entire (2-3 Views) Result Date: 06/22/2020 EXAMINATION: XR SPINE ENTIRE (2-3 VIEWS) CLINICAL HISTORY: Z01.818 Pre-op examination ICD10 COMPARISONS: None available. FINDINGS: There are no lytic or sclerotic bone lesions. There is no fracture or subluxation, there is no loss of vertebral body height. There is mild patient scoliosis of thoracic and lumbar spine. There is intervertebral disc space narrowing at every level and there appears danica grade 1 anterolisthesis of L4 and L5 with partial segmentation at L5-S1. The SI joints are symmetric. The prevertebral soft tissues are within normal limits. There are no radiopaque foreign bodies. There are no acute bony changes. There is mild S-shaped scoliosis of the thoracolumbar spine. BP (!) 115/50 Pulse 90 Temp 99.7 F (37.6 C) (Oral) Resp 16 Ht 5' 3 (1.6 m) Wt 205 lb (93kg) SpO2 96% BMI 36.31 kg/m Postop day 2. T-max 100.4. Vital signs stable. Low pulse ox was noted on 2 L oxygen. Awake alert [place] x3 good strength and tones. Dressing is dry. For x-ray with satisfaction. Importance of incentive spirometry was again discussed today. We will remeasure her pulse ox later on today if remains over 91%, patient can be discharged. Otherwise check x-rays. * Angelica Fish RN - 06/28/2020 9:03 PM EST 9:04 PM patient up to bathroom; rhochi noted in all lobes; 2L NC d/t SP02 at 87% on RA; 95% on 2L; patient states that she has been using IS about every 20 min and making sure that she does 10 breaths per hour. * Rachael Payton OTR/Pollo - 06/28/2020 9:23 AM EST [facility] OCCUPATIONAL THERAPY EVALUATION - ACUTE NAME: Lilo Reyes : 1955 (64 y.o.) CODE STATUS: Full Code Room: [place] [address] Date of Service: 06/28/2020 Patient Diagnosis(es): Spondylolisthesis of lumbar region [M43.16] No chief complaint on file. Patient Active Problem List Diagnosis Date Noted Spondylolisthesis of lumbar region 06/27/2020 Urinary tract infection, site not specified 03/04/2020 Fever, unspecified 02/16/2020 Urinary urgency 02/13/2020 Class 2 obesity in adult 01/16/2020 Vaginal atrophy 09/19/2019 Urge incontinence 09/19/2019 Lymphocytic colitis 07/18/2019 Spondylolisthesis, lumbar region 07/07/2019 Family history of malignant neoplasm of trachea, bronchus and lung 06/13/2019 Family history of malignant neoplasm of breast 06/13/2019 Encounter for screening for malignant neoplasm 06/06/2019 Pain in left leg 12/28/2018 Prediabetes 12/21/2018 Unspecified osteoarthritis, unspecified site 12/21/2018 Osteoarthritis of knee 12/21/2018 Plica syndrome, left knee 12/21/2018 Other tear of medial meniscus, current injury, left knee, initial encounter 12/21/2018 longterm (current) use of aspirin 12/21/2018 Age-related osteoporosis without current pathological fracture 12/21/2018 Acquired absence of other specified parts of digestive tract 12/21/2018 Pure hypercholesterolemia, unspecified 09/20/2018 Unspecified menopausal and perimenopausal disorder 09/20/2018 Essential (primary) hypertension 09/16/2018 Noninfective gastroenteritis and colitis, unspecified 06/28/2018 Past Medical History: Diagnosis Date Arthritis Past Surgical History: Procedure Laterality Date BLADDER SURGERY CARPAL TUNNEL RELEASE JOINT REPLACEMENT KNEE SURGERY SHOULDER SURGERY Restrictions Restrictions/Precautions: Fall Risk Position Activity Restriction Other position/activity restrictions: LSO PRN per orders, pt. states Dr. Yates said not to wear untilstaples come out Safety Devices: Safety Devices Safety Devices in place: Yes Type of devices: All fall risk precautions in place Subjective Pre Treatment Pain Screening Pain at present: 5 Scale Used: Numeric Score Intervention List: Patient able to continue with treatment, Patient declined any intervention Pain Reassessment: Pain Assessment Patient Currently in Pain: Yes Pain Assessment: 0-10 Pain Level: 5 Pain Location: Back Pain Descriptors: Aching Prior Level of Function: Social/Functional History Lives With: Spouse Type of Home: House Home Layout: Bed/Bath upstairs Home Access: Stairs to enter with rails Entrance Stairs - Number of Steps: 2 Bathroom Shower/Tub: Walk-in shower, Tub/Shower unit(tub shower on 2nd floor; 1st floor walking) Bathroom Equipment: Shower chair, Grab bars in shower, Hand-held shower Home Equipment: Rolling walker, Cane, Sock aid, Community Service Officer ADL Assistance: Independent Homemaking Assistance: Independent Homemaking Responsibilities: Yes(shared) Ambulation Assistance: Independent(no AD) Transfer Assistance: Independent Active Ct Technologist: Yes 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 & Hobbies: decorate cakes Additional Comments: Pt plans on sleeping in recliner on 1st floor OBJECTIVE: Orientation Status: Orientation Overall Orientation Status: Within Functional Limits Observation: Observation/Palpation Posture: Fair Observation: pleasant, cooperative, mm guarding noted, dressing intact to upper lumbar area Cognition Status: Cognition Overall Cognitive Status: WFL Perception Status: Perception Overall Perceptual Status: WFL Sensation Status: Sensation Overall Sensation Status: WFL Vision and Hearing Status: Vision Vision: Impaired Vision Exceptions: Wears glasses for reading Hearing Hearing: Within functional limits ROM: LUE AROM (degrees) LUE AROM : WFL Left Hand AROM (degrees) Left Hand AROM: WFL RUE AROM (degrees) RUE AROM : WFL Right Hand AROM (degrees) Right Hand AROM: WFL Strength: LUE Strength Gross LUE Strength: WFL L Hand General: 4/5 LUE Strength Comment: 4/5 all planes RUE Strength Gross RUE Strength: WFL R Hand General: 4/5 RUE Strength Comment: 4/5 all planes Coordination, Tone, Quality of Movement: Tone RUE RUE Tone: Normotonic Tone LUE LUE Tone: Normotonic Coordination Movements Are Fluid And Coordinated: Yes Hand Dominance: Hand Dominance Hand Dominance: Right ADL Status: ADL Feeding: Independent Grooming: Stand by assistance UE Bathing: Stand by assistance LE Bathing: Minimal assistance UE Dressing: Setup LE Dressing: Minimal assistance Toileting: Minimal assistance Additional Comments: Pt. simulated ADLs as above. Pt. demonstrates decreased strength and balance, difficulty reaching feet Toilet Transfers Toilet Transfer: Unable to assess Toilet Transfers Comments: Unable to ambulate that distance; anticipate CGA Therapy patterson for assistance levels Independent = Pt. is able to perform task with no assistance but may require a device Stand by assistance = Pt. does not perform task at an independent level but does not need physical assistance, requires verbal cues Minimal, Moderate, Maximal Assistance = Pt. requires physical assistance (25%, 50%, 75% assist fromhelper) for task but is able to actively participate in task Dependent = Pt. requires total assistance with task and is not able to actively participate with task completion Functional Mobility: Functional Mobility Functional - Mobility Device: Rolling Walker Activity: Other Assist Level: Contact guard assistance Functional Mobility Comments: CGA to side step to chair; limited ambulation due to dizziness when upright Transfers Sit to stand: Contact guard assistance Stand to sit: Contact guard assistance Transfer Comments: Pt. limited by dizziness and fatigue Bed Mobility Bed mobility Supine to Sit: Minimal assistance Comment: Up to chair at end of tx Seated and Standing Balance: Balance Sitting Balance: Supervision Standing Balance: Contact guard assistance Functional Endurance: Activity Tolerance Activity Tolerance: Patient Tolerated treatment well D/C Recommendations: OT D/C RECOMMENDATIONS REQUIRES OT FOLLOW UP: Yes Equipment Recommendations: OT Equipment Recommendations Other: Continue to assess OT Education: OT Education OT Education: OT Role, Plan of Care Patient Education: Educated pt. on role of acute care OT Barriers to Learning: None OT Follow Up: OT D/C RECOMMENDATIONS REQUIRES OT FOLLOW UP: Yes Assessment/Discharge Disposition: Assessment: Pt. is a 64 year old woman from home with spouse who presents to [facility] with the above deficits s/p spinal sx. Pt. would benefit from conitnued OT to maximize independence and safety with ADL tasks. Performance deficits / Impairments: Decreased functional mobility , Decreased ADL status, Decreasedbalance, Decreased endurance, Decreased high-level IADLs Prognosis: Good Discharge Recommendations: Continue to assess pending progress Decision Making: Medium Complexity History: Pt's medical history is moderately complex Exam: Pt. has 5 performance deficits Assistance / Modification: Pt requires min A Six Click Score How much help for putting on and taking off regular lower body clothing?: A Little How much help for Bathing?: A Little How much help for Toileting?: A Little How much help for putting on and taking off regular upper body clothing?: A Little How much help for taking care of personal grooming?: None How much help for eating meals?: None [facility] Inpatient Daily Activity Raw Score: 20 AM-[facility] Inpatient ADL T-Scale Score : 42.03 ADL Inpatient CMS 0-100% Score: 38.32 Plan: Plan Times per week: 1-3x Plan weeks: Length of acute stay Current Treatment Recommendations: Functional Mobility Training, Balance Training, Equipment Evaluation, Education, & procurement, Self-Care / ADL, Patient/Caregiver Education & Training, Home Management Training, Safety Education & Training, Neuromuscular Re-education Goals: Patient will: - Improve functional endurance to tolerate/complete 30 mins of ADL's - Be Mod I in UB ADLs - Be Mod I in LB ADLs - Be Mod I in ADL transfers without LOB - Be Mod I in toileting tasks - Access appropriate D/C site with as few architectural barriers as possible. - Sequence self-care tasks with no verbal cues for safety Patient Goal: Patient goals : I want to get home Discussed and agreed upon: Yes Comments: Therapy Time: OT Individual Minutes Time In: 0850 Time Out: 09 Minutes: 15 Eval: 15 minutes Electronically signed by: CESAR Whyte/Pollo 06/28/2020, 9:23 AM * Jahaira Davidson, PT - 06/28/2020 9:23 AM EST Physical Therapy Med Surg Initial Assessment Facility/Department: [address] [facility]O Room: 26/[place] [address] NAME: Lilo Reyes : 1955 (64 y.o.) CODE STATUS: Full Code Date of Service: 06/28/2020 Patient Diagnosis(es): Spondylolisthesis of lumbar region [M43.16] No chief complaint on file. Patient Active Problem List Diagnosis Date Noted Spondylolisthesis of lumbar region 06/27/2020 Urinary tract infection, site not specified 03/04/2020 Fever, unspecified 02/16/2020 Urinary urgency 02/13/2020 Class 2 obesity in adult 01/16/2020 Vaginal atrophy 09/19/2019 Urge incontinence 09/19/2019 Lymphocytic colitis 07/18/2019 Spondylolisthesis, lumbar region 07/07/2019 Family history of malignant neoplasm of trachea, bronchus and lung 06/13/2019 Family history of malignant neoplasm of breast 06/13/2019 Encounter for screening for malignant neoplasm 06/06/2019 Pain in left leg 12/28/2018 Prediabetes 12/21/2018 Unspecified osteoarthritis, unspecified site 12/21/2018 Osteoarthritis of knee 12/21/2018 Plica syndrome, left knee 12/21/2018 Other tear of medial meniscus, current injury, left knee, initial encounter 12/21/2018 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 12/21/2018 Age-related osteoporosis without current pathological fracture 12/21/2018 Acquired absence of other specified parts of digestive tract 12/21/2018 Pure hypercholesterolemia, unspecified 09/20/2018 Unspecified menopausal and perimenopausal disorder 09/20/2018 Essential (primary) hypertension 09/16/2018 Noninfective gastroenteritis and colitis, unspecified 06/28/2018 Past Medical History: Diagnosis Date Arthritis Past Surgical History: Procedure Laterality Date BLADDER SURGERY CARPAL TUNNEL RELEASE JOINT REPLACEMENT KNEE SURGERY SHOULDER SURGERY Chart Reviewed: Yes Patient assessed for rehabilitation services?: Yes Family / Caregiver Present: No Restrictions: SUBJECTIVE: Pain Pre Treatment Pain Screening Pain at present: 5 Scale Used: Numeric Score Intervention List: Patient able to continue with treatment;Patient declined any intervention Post Treatment Pain Screening: Pain Screening Patient Currently in Pain: Yes Pain Assessment Pain Assessment: 0-10 Pain Level: 5 Prior Level of Function: Social/Functional History Lives With: Spouse Type of Home: House Home Layout: Bed/Bath upstairs Home Access: Stairs to enter with rails Entrance Stairs - Number of Steps: 2 Bathroom Shower/Tub: Walk-in shower, Tub/Shower unit(tub shower on 2nd floor; 1st floor walking) Bathroom Equipment: Shower chair, Grab bars in shower, Hand-held shower Home Equipment: Rolling walker, Cane, Sock aid, Community Service Officer ADL Assistance: Independent Homemaking Assistance: Independent Homemaking Responsibilities: Yes(shared) Ambulation Assistance: Independent(no AD) Transfer Assistance: Independent Active Ct Technologist: Yes 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 & 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: decorate cakes Additional Comments: Pt plans on sleeping in recliner on 1st floor OBJECTIVE: Vision: Impaired Vision Exceptions: Wears glasses for reading Hearing: Within functional limits Cognition: Overall Orientation Status: Within Functional Limits Follows Commands: Within Functional Limits Observation/Palpation Posture: Fair Observation: pleasant, cooperative, mm guarding noted, dressing intact to upper lumbar area ROM: RLE PROM: WFL RLE AROM: WFL LLE PROM: WFL LLE AROM : WFL Spine Lumbar: impaired s/p sx not formally tested Strength: Strength RLE Comment: functionally >3+/5 Strength LLE Comment: functionally >3+/5 Neuro: Balance Posture: Fair Sitting - Static: Good Sitting - Dynamic: Good;- Standing - Static: Fair Standing - Dynamic: Fair Motor Control Gross Motor?: WFL Sensation Overall Sensation Status: WFL Bed mobility Supine to Sit: Minimal assistance Comment: pt ed in log roll, fair follow through Transfers Sit to Stand: Contact guard assistance Stand to sit: Contact guard assistance Bed to Chair: Contact guard assistance Comment: VC for Ambulation Ambulation?: Yes Ambulation 1 Surface: level tile Device: Rolling Walker Assistance: Contact guard assistance Distance: 2ft Comments: distance limited by pain levels Activity Tolerance Activity Tolerance: Patient Tolerated treatment well PT Education PT Education: PT Role;Plan of Care;Goals;General Safety;Gait Training;Disease Specific Education Patient Education: brace ASSESSMENT: Body structures, Functions, Activity limitations: Decreased functional mobility ;Decreased balance;Decreased strength;Decreased ROM;Decreased posture;Increased pain;Decreased safe awareness Decision Making: Medium Complexity History: med Exam: med Clinical Presentation: med Prognosis: Good Patient Education: brace Barriers to Learning: none DISCHARGE RECOMMENDATIONS: Discharge Recommendations: Continue to assess pending progress Assessment: Pt demonstrates the above deficits and decline in functional mobility s/p lumbar decompression & PLIF. Pt would benefit from physical therapy to address above deficits and allow for safe return home at highest level of function, decrease risk for falls, and improve QOL. 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 Device may be needed. Stand by assistance = pt requires verbal cues or instructions from another person, close to but nottouching, to perform the activity Minimal assistance= pt performs 75% or more of the activity; assistance is required to complete theactivity Moderate assistance= pt performs 50% of the activity; assistance is required to complete the activity Maximal assistance = pt performs 25% of the activity; assistance is required to complete the activity Dependent = pt requires total physical assistance to accomplish the task * Alena Parra RN - 06/25/2020 12:34 PM EST Phone call to patient reviewing Meds and Yellow PAT instruction sheet, patient verbalized understanding. documented in this encounter Chief Complaint and Reason for Visit Chief Complaint m54.50 Additional Source Comments INFORMATION SOURCE (unrecogn ized section and content) DATE CREATED AUTHOR 02/01/2018 [facility] DATE CREATED AUTHOR AUTHOR'S ORGANIZ ATION 06/21/2020 [facility] DATE CREATED AUTHOR AUTHOR'S ORGANIZ ATION 06/29/2020 [facility] DATE CREATED AUTHOR AUTHOR'S ORGANIZ ATION 03/04/2022 [facility] DATE CREATED AUTHOR AUTHOR'S ORGANIZ ATION 10/03/2022 [facility] DATE CREATED AUTHOR AUTHOR'S ORGANIZ ATION 10/28/[address] [facility] DATE CREATED AUTHOR AUTHOR'S ORGANIZ ATION 08/06/2023 [facility] DATE CREATED AUTHOR AUTHOR'S ORGANIZ ATION 08/26/2023 [facility] DATE CREATED AUTHOR AUTHOR'S ORGANIZ ATION 09/02/2023 [facility] EPIC Reason for Visit (unrecogniz ed section and content) Status Reason Specialty Diagnoses / Procedures Referre d By Contact Referred To Contact Diagnoses Spondylolisthesis Neural foraminal stenosis of cervical spine Degenerative disc disease at L5-S1 level Spondylosis Radiculopathy SPONDYLOLISTHESIS; SPINAL & FORAMINAL STENOSIS, DEGENERATIVE DISC DISEASE; SPONDYLOSIS; RADICULOPATHY Procedures NJ LUMBAR SPINE FUSN,POST INTRBDY L4-5 DECOMPRESSION / PLIF (POSTERIOR LUMBAR INTERBODY FUSION). 2 HOURS / 1 C-ARM / CRUZ TABLE / NUVASIVE / SSEP / CELL SAVERS. REQUESTING 1ST CASE (PAT AT [facility]) Amilcar Yates MD [address], [address] [place] [address] [facility] Reason Comments Pain Specialty Diagnoses / Procedures Referred By Contac t Referred To Contact Diagnoses 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 joint, sequela Procedures XR KNEE LEFT 3 VIEWS Braulio Garay MD [address] [place] [phone] Referral ID Status Reason Start Date Expiration Date V isits Requested Visits Authorized [id number] Pending Review 06/26/2022 07/21/2023 1 1 Specialty Diagnoses / Procedures Referred By Contac t Referred To Contact Diagnoses Left knee pain, unspecified chronicity Procedures XR KNEE LEFT 4+ VIEWS Braulio Garay MD [address] [place] [phone] Referral ID Status Reason Start Date Expiration Date V isits Requested Visits Authorized [id number] New Request 02/18/2023 03/14/2024 1 1 Reason Comments Pain Condition Update Reason Comments Pain Specialty Diagnoses / Procedures Referred By Contac t Referred To Contact Diagnoses 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, 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 [T84.023A] Failed total left knee replacement, initial encounter [T84.093A] Procedures NJ REVISE KNEE JOINT REPLACE,ALL PARTS REVISION ARTHROPLASTY KNEE Braulio Garay MD [address] [place] [phone] Referral ID Status Reason Start Date Expiration Date Visits Re quested Visits Authorized [id number] 06/08/2023 1 1 Specialty Diagnoses / Procedures Referred By Contac t Referred To Contact Diagnoses Hx of total knee arthroplasty, left Procedures XR KNEE LEFT 3 VIEWS Roni Mercer, CUSTOM TAILOR APPRENTICE-LINE APPLIANCE ASSEMBLER [address] [facility] [place] [address] Referral ID Status Reason Start Date Expiration Date V isits Requested Visits Authorized [id number] New Request 08/17/2023 09/10/2024 1 1 Care Teams (unrecognized sec tion and content) Activities Concierge Relationship Specialty Start Date End Date Leon Solares MD [address], [place] [id number] PCP - General Family Medicine 07/15/22 Activities Concierge Relationship Specialty Start Date End Date Leon Solares MD [address], [place] [address] PCP - General Family Medicine 07/15/22 Team Status: Inactive Member Role Status Dates Leon Solares MD Primary Care Provider Active Eder Gonzalez MD Attending Provider Active Team Status: Active Member Role Status Dates Leon Solares MD Primary Care Provider Active Activities Concierge Relationship Specialty Start Date End Date Leon Solares MD [address], [place] [address] PCP - General Family Medicine 07/15/22 Activities Concierge Relationship Specialty Start Date End Date Leon Solares MD [address], [place] [address] PCP - General Family Medicine 07/15/22 Activities Concierge Relationship Specialty Start Date End Date Leon Solares MD [address], [place] [id number] PCP - General Family Medicine 07/15/22 Activities Concierge Relationship Specialty Start Date End Date Murray Ly MD [address] [place] [address] PCP - General Family Medicine 07/26/23 Activities Concierge Relationship Specialty Start Date End Date Murray Ly MD [address] [place] [address] PCP - General Family Medicine 07/26/23 Goals (unrecognized section and content) Goals may be documented in a n alternate sectionNo Information No data available for this section No data available for this section No data available for this section No data available for this section No data available for this section No data available for this section No data available for this section No data available for this section No data available for this section No data available for this section No data available for this section No data available for this section No data available for this section No data available for this section No data available for this section Scheduled Active and Recently Administ ered Medications (unrecognized section and content) Medication Order 07/25/2023 07/26/2023 07/27/2023 acetaminophen (TYLENOL) tablet 1,000 mg 1,000 mg, Oral, EVERY 6 HOURS NON-STANDARD, First dose on Wed07/26/23 at 1900, Until Discontinued, Post-op/Post-Proc 1812 (Given - Provider: Zoila Todd RN) 0003 (Given - Provider: Anita Alston, RN)0509 (Given - Provider: Anita Alston RN)1308 (Given - Provider: Zoila Todd, ROGER) Aspirin tablet delayed release 81 mg 81 mg, Oral, EVERY 12 HOURS, First dose on Wed07/27/23 at 0900, Until Discontinued, Start in AM day after surgery, Post-op/Post-Proc 1106 (Given - Provid er: Zoila Todd RN) ceFAZolin (ANCEF) 2 g in dextrose 100 mL premix IVPB (COMPLETED) 2 g, Intravenous, Administer over 30 Minutes, EVERY 8 HOURS NON-STANDARD, 3 doses, First dose on Wed07/26/23 at 2200, Last dose on Wed07/27/23 at 1400, Post-op/Post-Proc 2114 ($$New Bag$$ - Provider: Anita Alston RN) 0510 ($$New Bag$$ - Provider: Anita Alston, RN)1308 ($$New Bag$$ - Provider: Zoila Todd RN) dexAMETHasone (DECADRON) injection 10 mg (COMPLETED) 10 mg, Intravenous, EVERY 24 HOURS, 1 dose, First dose on Wed07/27/23 at 1300, 24 hours post op, Post-op/Post-Proc 1308 (Given - Provid er: Zoila Todd RN) Docusate (COLACE) capsule 100 mg 100 mg, Oral, 2 TIMES DAILY, First dose on Wed07/26/23 at 1700, Until Discontinued, Post-op/Post-Proc 1813 (Given - Provider: Zoila Todd RN) 1106 (Given - Provider: Zoila Todd RN)1700 (Canceled Entry - Provider: System Discharge - Comment: Automatically canceled at discontinue of medication order) Ketorolac (TORADOL) injection 7.5 mg 7.5 mg, Intravenous, EVERY 6 HOURS, 12 doses, First dose on Wed07/26/23 at 1800, Last dose on Wed07/29/23 at 1200, Post-op/Post-Proc 1813 (Given - Provider: Zoila Todd RN) 0003 (Given - Provider: Anita Alston RN)0509 (Given - Provider: Anita Alston RN)1106 (Given - Provider: Zoila Todd RN) Lactated ringers IV solution 500 mL (COMPLETED) 500 mL, Intravenous, ONCE, 1 dose, On Wed07/27/23 at 0745 0738 (Canceled Entry - Provider: Zoila Todd RN)0739 ($$New Bag$$ - Provider: Zoila Todd RN - Comment: Verified with name, , and MAR information.) Metoprolol (LOPRESSOR) tablet 25 mg 25 mg, Oral, 2 TIMES DAILY, First dose on Wed07/26/23 at 1700, Until Discontinued, Hold for blood pressure less than 100 mmHg or heart rate less than 55 bpm 1358 (MAR Hold - Provider: Automatic Transfer - Reason: Transfer to a Procedural area)1653 (MAR Unhold - Provider: Automatic Transfer)1813 (Not Given - Provider: Zoila Todd RN - Reason: Order Parameters not met - Comment: HR is hovering aroun 53 and BP was 105/57) 1105 (Not Given - Provider: Zoila Todd RN - Reason: Other - Comment: Blood pressure is 105/51)1700 (Canceled Entry - Provider: System Discharge - Comment: Automatically canceled at discontinue of medication order) Pantoprazole (PROTONIX) tablet DR 40 mg 40 mg, Oral, DAILY EARLY EVENING, First dose on Wed07/26/23 at 1800, Until Discontinued, Swallow whole; do not crush or chew., Indications: Inpt Stress Ulcer Prophylaxis 1358 (OCT Hold - Provider: Automatic Transfer - Reason: Transfer to a Procedural area)165 (OCT Unhold - Provider: Automatic Transfer)181 (Given - Provider: Zoila Todd RN) ROPivacaine (NAROPIN) 1 % 400 mg, EPINEPHrine PF (ADRENALIN) 1 MG/ML 1 mg, Ketorolac (TORADOL) 30 MG/ML 30 mg, cloNIDine 100 MCG/ML 183 mcg, Sodium chloride 0.9% 45 mL in viaflex container 1 Each 88.83 mL (total volume) (COMPLETED) Intra-articular, INTRA-OP ONCE, 1 dose, Starting on Wed07/26/23 at 1426, Until Wed07/26/23 at 1405, 88.83 mL, To be mixed by pharmacy NOT for IV use, Intra-op/Intra-Proc 1405 (Given - Provider: Braulio Garay MD - Comment: given to sterile field for intraoperative administration) Continuous Medication Order 07/25/2023 07/26/2023 07/27/2023 Lactated ringers IV solution (CANCELED) Intravenous, at 75 mL/hr, CONTINUOUS, Starting on Wed07/26/23 at 0945, Until Wed07/26/23 at 1653, Pre-op/Pre-Proc 1042 ($$New Bag$$ - Provider : Zoila Todd RN)1356 (Paused - Provider: Arpan Kent CUSTOM TAILOR APPRENTICE-REINFORCING IRON WORKER HELPER - Comment: Switch to gravity)1357 (Restarted - Provider: Arpan Kent CUSTOM TAILOR APPRENTICE-REINFORCING IRON WORKER HELPER)1443 ($$New Bag$$ - Provider: Arpan Kent CUSTOM TAILOR APPRENTICE-REINFORCING IRON WORKER HELPER)1600 (Anesthesia Volume Adjustment - Provider: Arpan Kent, CUSTOM TAILOR APPRENTICE-REINFORCING IRON WORKER HELPER) Lactated ringers IV solution Intravenous, at 100 mL/hr, CONTINUOUS, Starting on Wed07/26/23 at 1730, Until Wed07/27/23 at 1712 1816 ($$New Bag$$ - Provider : Zoila Todd RN) ROPivacaine (NAROPIN) 0.2% 1,500 mg, On-Q Pump 1 Each Debi-neural, CONTINUOUS, Starting on Wed07/26/23 at 1630, Until Wed07/27/23 at 1712, Recovery to Continue 1645 ($$New Bag$$ - Provider : Gely Herrera RN) PRN Medication Order 07/25/2023 07/26/2023 07/27/2023 acetaminophen (TYLENOL) tablet 1,000 mg (COMPLETED) 1,000 mg, Oral, ONCE DIRECTED, 1 dose, Starting on Wed07/26/23 at 0936, Until Discontinued, See admin instructions, Administer 1 hour preop., Pre-op/Pre-Proc 1042 (Given - Provider: Ifeoma Todd RN) bisacodyl (DULCOLAX) suppository 10 mg 10 mg, Rectal, DAILY NEEDED, Starting on Wed07/26/23 at 1654, Until Wed07/27/23 at 1712, constipation, Post-op/Post-Proc ceFAZolin (ANCEF) 2 g in dextrose 100 mL premix IVPB (COMPLETED) 2 g, Intravenous, Administer over 15 Minutes, 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 PROCEDURE, 1 dose, Starting on Wed07/26/23 at 0936, Until Discontinued, Other, Pre-operative antibiotic, Pre-op/Pre-Proc 1402 (Given - Provider: Leif Kent, CUSTOM TAILOR APPRENTICE-REINFORCING IRON WORKER HELPER) Celecoxib (CELEBREX) capsule 200 mg (COMPLETED) 200 mg, Oral, ONCE DIRECTED, 1 dose, Starting on Wed07/26/23 at 0936, Until Discontinued, See admin instructions, Administer 2 hours preop., Pre-op/Pre-Proc 1042 (Given - Provider: Ifeoma Todd RN) HYDROmorphone (DILAUDID) injection 0.5 mg 0.5 mg, Intravenous, EVERY 4 HOURS NEEDED, Starting on Wed07/26/23 at 1654, Until Wed07/27/23 at 1712, Severe Pain, Post-op/Post-Proc Ondansetron 4mg/2ml (ZOFRAN) injection 4 mg 4 mg, Intravenous, EVERY 4 HOURS NEEDED, Starting on Wed07/26/23 at 1654, Until Wed07/27/23 at 1712, Nausea / Vomiting, Post-op/Post-Proc oxyCODONE (ROXICODONE) tablet 5-10 mg 5-10 mg, Oral, EVERY 4 HOURS NEEDED, Starting on Wed07/26/23 at 1654, Until Wed07/27/23 at 1712, moderate-severe pain, If pain unrelieved with oxycodone, contact pharmacist to enter order for Oxycodone ER 10mg PO Q12H for 3 days, Post-op/Post-Proc polymyxin B sulfate 500,000 Units in Sodium chloride 0.9 % 1,000 mL irrigation solution (CANCELED) NEEDED, Starting on Wed07/26/23 at 1405, Until Wed07/26/23 at 1626, Intra-op/Intra-Proc 1405 (Given - Provider: Mauricio Garay MD - Comment: intraoperative administration) senna-docusate (SENOKOT-S) 8.6-50 MG per tablet 2 tablet 2 tablet, Oral, 2 TIMES DAILY NEEDED, Starting on Wed07/26/23 at 1654, Until Wed07/27/23 at 1712, constipation, Post-op/Post-Proc Sodium chloride 0.9 % irrigation (CANCELED) NEEDED, Starting on Wed07/26/23 at 1405, Until Wed07/26/23 at 1626, Intra-op/Intra-Proc 1405 (Given - Provider: Mauricio Garay MD - Comment: given to sterile field for intraoperative irrigation) sodium phosphate w/sodium biphosphate (FLEETS) enema 1 enema 1 enema, Rectal, DAILY NEEDED, Starting on Wed07/26/23 at 1654, Until Wed07/27/23 at 1712, Refractory Constipation, use per package instructions, Post-op/Post-Proc tranexamic acid (LYSTEDA) tablet 1,950 mg (COMPLETED) 1,950 mg, Oral, ONCE DIRECTED, 1 dose, Starting on Wed07/26/23 at 0936, Until Discontinued, See admin instructions, Administer 2 hours preop, Pre-op/Pre-Proc 1042 (Given - Provider: Ifeoma Todd RN) Vancomycin (VANCOCIN) injection (COMPLETED) CONTINUOUS NEEDED, Starting on Wed07/26/23 at 1405, Until Discontinued, Intra-op/Intra-Proc 1405 ($$New Bag$$ - Provider : Braulio Garay MD - Comment: given to sterile field for intraoperative administration) Zolpidem (AMBIEN) tablet 5 mg 5 mg, Oral, DAILY AT BEDTIME NEEDED, Starting on Wed07/26/23 at 1654, Until Tu07/27/23 at 1712, Sleep, Post-op/Post-Proc FOR RECORDS PERTAINING TO PATIENTS WHO ARE OR HAVE BEEN ENROLLED IN A CHEMICAL DEPENDENCY/SUBSTANCEABUSE PROGRAM, SOME INFORMATION MAY BE OMITTED. This clinical summary was aggregated from multiple sources. Caution should be exercised in using it in the provision of clinical care. This summary normalizes information from multiple sources, and as a consequence, information in this document may materially change the coding, format and clinical context of patient data. In addition, data may be omitted in some cases. CLINICAL DECISIONS SHOULD BE BASED ON THE PRIMARY CLINICAL RECORDS. [facility]. provides no warranty or guarantee of the accuracy or completeness of information in this document.
== END 2023-09-07 12:55 | disposition home or self-care (01) ==
LOC: RAD 12:54
PROVIDERS: PCP Family Medicine; Visit Provider Nurse Practitioner
DX: E28.39 Other primary ovarian failure (principal); M85.80 Other specified disorders of bone density and structure, unspecified site
CPT/HCPCS: 77080

== ENCOUNTER 2023-09-16 10:40 | Outpatient (OUT) | payer MEDICARE, OTHER, SELFPAY ==
--- NOTE | 2023-09-16 10:43 | XR_ITS ---
The [address] [address] Patient Name: WHITNEY REYES MRN: [id number] date: 1955 Sex: F Assigned Patient Location: [facility] Current Patient Location: [facility] Accession/Order Number: [id number] Exam Date: 09/16/2023 10:47 Report Date: 09/16/2023 11:46 At the request of: JUANITO ROD Procedure: XR cervical spine 5V EXAMINATION: XR cervical spine 5V HISTORY: Neck Pain ; posterior neck pain for several months COMPARISON: No relevant comparison available. FINDINGS: BONES: Reversal of normal lordotic curvature involving C5-6-7. No fracture or bone lesion. Minimal grade 1 anterolisthesis of C5 on C6. Moderate degenerative facet arthropathy throughout, but predominantly involving C2-3 and C3-4. DISC SPACES: Mild narrowing C4-5, C5-C6. Moderate marked narrowing C6-7. PARASPINOUS: Negative. No paraspinous abnormality is seen. OTHER: Negative. XR/XR cervical spine 5V IMPRESSION: 1. Moderate-marked degenerative changes of cervical spine. No appreciable acute abnormality. Electronically authenticated by: LEXUS NEW Date: 09/16/2023 11:46
== END 2023-09-16 10:41 | disposition home or self-care (01) ==
LOC: RAD 10:40
PROVIDERS: PCP Family Medicine; Visit Provider Nurse Practitioner
DX: M54.2 Cervicalgia (principal)
CPT/HCPCS: 72050

== ENCOUNTER 2024-02-16 22:29 | Emergency (ER) | payer OTHER, MEDICARE, SELFPAY ==
[2024-02-16 22:30] VITALS: BP 190/105; PULSE 63; TEMP 36.7; O2SAT 98; BMI 36.0
--- OUTSIDE RECORDS SUMMARY | 2024-02-16 22:37 | XMS_ITS | CCD ---
Author Organization [facility] Providers Care Director Home Health Name Role Phone Arpan Brock Unavailable Unavail able Arpan Brock Unavailable Unavail able LEON SOLARES Unavailable Unavailable SOLARESLEON MENDOZA Unavailable Unavailable Alexis Valencia Unavailable Unavailable Og Almeida Unavailable Unavailable Arpan Navarro Unavailable Unavailable Arpan Brock Unavailable Unavail able Arpan Brock Unavailable Unavail able LEON SOLARES Unavailable Unavailable SOLARESLEON MENDOZA Unavailable Unavailable Og Almeida Unavailable Unavailable LEON SOLARES Unavailable Unavailable Leon Solares Primary Care Provider AMILCAR YATES Admitting Unavailable AMILCAR YATES Attending Unavailable LEON SOLARES Primary Care Unavailable ZACHARY BOLES Referring Unavailab le LEON SOLARES Primary Care Unavailable AMILCAR YATES Attending Unavailable AMILCAR YATES Referring Unavailable LEON SOLARES Primary Care Unavailable Leon Solares MD Primary Care Provider IRVIN, DR LEON Jo Attending Unavailable IRVIN, DR LEON Jo Admitting Unavailable IRVIN, DR LEON Jo Primary Care Unavailable IRVIN, DR LEON Jo Consulting Unavailable JERILYN, DR FRANCOIS Lopez Consulting Unavailable IRVIN, DR LEON Jo Consulting Unavailable IRVIN, DR LEON Jo Attending Unavailable IRVIN, DR LEON Jo Admitting Unavailable IRVIN, DR LEON Jo Primary Care Unavailable DR FRANCOIS ALBERT V Consulting Unavailable IRVIN, DR LEON Jo Consulting Unavailable IRVIN, DR LEON Jo Attending Unavailable IRVIN, DR LEON Jo Admitting Unavailable IRVIN, DR LEON Jo Primary Care Unavailable SHAQ, DR LEXUS Rashid Consulting Unavailable IRVIN, DR LEON Jo Attending Unavailable IRVIN, DR LEON Jo Admitting Unavailable IRVIN, DR LEON Jo Primary Care Unavailable IRVIN, DR LEON Jo Consulting Unavailable MD Leon Solares Primary Care Provider MD Layne Justice Attending Provider Layne Justice Unavailable LEON SOLARES Primary Care Physician [phone] Cuauhtemoc Ly Primary Care Physician Jaci Zelaya Primary Care Physician Leon Solares MD Primary Care Provider Malachi DUBON, Cuauhtemoc Primary Care Provider Unavailable Primary Care Provider Unavailabl LEON Parikh Primary Care Unavailable FOSTER, BRAULIO Referring Unavailable FOSTER, BRAULIO Attending Unavailable JOSE LUIS, RONI Attending Unavailable JOSE LUIS, RONI Referring Unavailable [facility] Primary Care Unavailable JOSE LUIS, RONI Attending Unavailable JOSE LUIS, RONI Referring Unavailable [facility] Primary Care Unavailable JOSE LUIS, RONI Attending Unavailable SELF, SELF Referring Unavailable [facility] Primary Care Unavailable JOSE LUIS, RONI Referring Unavailable JOSE LUIS, RONI Attending Unavailable [facility] Primary Care Unavailable FOSTER, BRAULIO Attending Unavailable SELF, SELF Referring Unavailable [facility] Primary Care Unavailable JOSE LUIS, RONI Referring Unavailable JOSE LUIS, RONI Attending Unavailable [facility] Primary Care Unavailable SELF, SELF Referring Unavailable FOSTER, BRAULIO Attending Unavailable SOLARES, LEON Primary Care Unavailable FOSTER, BRAULIO Attending Unavailable SOLARES, LEON Primary Care Unavailable FOSTER, BRAULIO Referring Unavailable SOLARES, LEON Primary Care Unavailable SELF, SELF Referring Unavailable FOSTER, BRAULIO Attending Unavailable FOSTER, BRAULIO Referring Unavailable SOLARES, LEON Primary Care Unavailable FOSTER, BRAULIO Admitting Unavailable FOSTER, BRAULIO Attending Unavailable RAMAN SILVERIO Attending Unavailable JOSE LUIS, RONI Referring Unavailable KELBLEY, VIVIANA Attending Unavailable JOSE LUIS, RONI Referring Unavailable MARIANA TAYLOR Attending Unavailable JOSE LUIS, RONI Referring Unavailable KELBLEY, VIVIANA Attending Unavailable JOSE LUIS, RONI Referring Unavailable KELBLEY, VIVIANA Attending Unavailable JOSE LUIS, RONI Referring Unavailable BRYURIY BARRONALL Attending Unavailable JOSE LUIS, RONI Referring Unavailable KELBLEY, VIVIANA Attending Unavailable JOSE LUIS, RONI Referring Unavailable KELBLEY, VIVIANA Attending Unavailable JOSE LUIS, RONI Referring Unavailable RAMAN SILVERIO T Attending Unavailable JOSE LUIS, RONI Referring Unavailable KELBLEY, VIVIANA Attending Unavailable JOSE LUIS, RONI Referring Unavailable BRYURIY BARRONALL Attending Unavailable JOSE LUIS, RONI Referring Unavailable KELBLEY, VIVIANA Attending Unavailable JOSE LUIS, RONI Referring Unavailable KELBLEY, VIVIANA Attending Unavailable JOSE LUIS, RONI Referring Unavailable JASESELINARUBÉN Attending Unavailable JOSE LUIS, RONI Referring Unavailable KELBLEYVIVIANA Attending Unavailable JOSE LUIS, RONI Referring Unavailable MARIANA TAYLOR Attending Unavailable JOSE LUIS, RONI Referring Unavailable APLINGGAMALIEL Attending Unavailable APLINGGAMALIEL B Referring Unavailable CARMELO, RODRÍGUEZ Trejo Attending Unavailable CARMELO, RODRÍGUEZ Trejo Attending Unavailable Louise Owusu Attending Unavailable Cuauhtemoc Ly Referring Unavailable POONAM Owusu Admitting Unavailabl e Juwan Mendez Referring Unavailable Juwan Mendez Attending Unavailable DO Juwan Mendez Admitting Unavailabl e Juwan Mendez Referring Unavailable Juwan Mendez Attending Unavailable DO Juwan Mendez Admitting Unavailabl e Nathalie, Jaci L Attending Unavailable Nathalie, Jaci L Attending Unavailable Nathalie, Jaci L Attending Unavailable Nathalie, Jaci L Attending Unavailable SarminiMilka Talal Referring Unavaila ble Sarmini, Milka Talal Attending Unavaila ble Sarmini, Milka Talal Admitting Unavaila ble Nathalie, Jaci L Admitting Unavailable Nathalie, Jaci L Attending Unavailable Nathalie, Jaci L Admitting Unavailable Nathalie, Jaci L Attending Unavailable Nathalie, Jaci L Admitting Unavailable Nathalie, Jaci L Attending Unavailable Nathalie, Jaci L Admitting Unavailable Nathalie, Jaci L Attending Unavailable Brown, Rodríguez Trejo Attending Unavailable BrownRodríguez Admitting Unavailable Nathalie, Jaci L Attending Unavailable Nathalie, Jaci L Admitting Unavailable NehaNoris Attending Unavailable Neha, Beth A Attending Unavailable Nathalie, Jaci L Attending Unavailable Nathalie, Jaci L Attending Unavailable Nathalie, Jaci L Attending Unavailable Nathalie, Jaci L Referring Unavailable Juwan Mendez Attending Unavailable DO Juwan Mendez Admitting Unavailabl e Nathalie, Jaci L Referring Unavailable Juwan Mendez Attending Unavailable Juwan Mendez Admitting Unavailable Nathalie, Jaci L Referring Unavailable Louise Owusu Attending Unavailable Louise Owusu Admitting Unavailable Louise Owusu Attending Unavailable LEON SOLARES Referring Unavailable POONAM Owusu Admitting Unavailabl e MD Beto Patel Attending Provider MD Cuauhtemoc Ly Primary Care Provider Beto Patel Attending Unavailable Beto Patel Admitting Unavailable Cuauhtemoc Ly Primary Care Unavailable Allergies Allergy Classification Reported Allergen(s) Allergy Type Date of Onset Reaction(s) Facility NSAIDs (1 source) meloxicam Drug Allergy 3 Diarrhea, Dyspepsia [facility] Penicillins (antibiotic) (1 source) Amoxicillin Drug Allergy 2 Swelling [facility] (20 sources) amoxicillin; Translations: [amoxicillin] Drug Allergy 6 Swelling, Edema of face (finding) [facility] Rep[facility] (5 sources) meloxicam Drug Allergy 3 Diarrhea, Dyspepsia [facility] Medications Current Medications Medication Drug Class(es) Dates [...] 01/16/2020 06/28/2020 Discontinued (Stop Taking at Discharge) take 2 tablets by mo uth every six hours as needed acetaminophen (Tylenol) 325 MG tablet Take 650 mg by mouth every 6 (six) hours if needed. 0 Active End: 07-26-2023 take 1 tablet by mouth [...] Start: 06-27-2020 take 1 tablet by killian every four hours as needed for pain 1 tablet, Oral, EVERY 4 HOURS PRN, Pain Moderate (4-6), Starting Kaylene 06/27/20 at 1414 Maximum dose of acetaminophen is 4000 mg from all sources in 24 hours. alendronic acid 70 mg oral tablet (12 sources) Bisphosphonate Start: 01-06-2024 take 70 mg by mouth every week Alendronate Active 70 MG PO every week January 06, 2024 12:00am Start: 01-06-2024 Alendronate Ac tive MG PO January 06, 2024 12:00am Start: 08-03-2023 Fosamax 70 mg Tab 70 mg = 1 tab(s), Oral, q7day, # 12 tab(s), Refills(s) 3, Pharmacy: [facility]/pharmacy #[id number], 160, cm, 07/23/23 9:03:00 EST, Height/Length [...] is for blood clot prevention. 60 tablet 07/26/2023 Active Start: 06-27-2020 take 81 mg by mouth once daily 81 mg, Oral, DAILY, First dose on Kaylene 06/27/20 at 1430 Start: 09-28-2018 take 81 mg by mouth once daily Aspirin Active 81 MG PO Daily September 28, 2018 1:00am take 1 tablet by killian th every twenty-four hours Alfred Aspirin 325 MG 1 tablet Orally Once a day Active take 1 tablet by mouth once omero y aspirin 81 MG tablet Take 81 mg by mouth daily 0 Active aspirin/placebo, M-1657, 81 mg tablet (8 sources) take 1 tablet by mouth once daily aspirin/placebo, M-1657, 81 mg tablet Take 1 tablet by mouth daily. Active take 1 tablet by mouth once omero y aspirin/placebo, M-1657, 81 mg tablet Take 1 tablet by mouth daily. 0 Active azelastine hydrochloride 0.206 mg/actuat metered dose nasal spray (4 sources) Histamine-1 Receptor Antagonist Start: 06-27-2020 2 spray, NOT APPLICABLE, 2 TIMES DAILY, First dose on Wed06/27/20 at 1430 azelastine HCl 0 .15 % SOLN 2 sprays by NOT APPLICABLE route 2 times daily 0 Active Calcium (1 source) Phosphate Binder, Calcium Calcium Active calcium carbonate 1500 mg oral tablet (20 sources) Start: 11-05-2022 calcium (as carbonate) 600 mg oral tablet 1,200 mg = 2 tab(s), Oral, Daily, Refills(s) 0, Prophylaxis Start Date: 11/05/22 Status: Ordered Start: 06-27-2020 take 500 mg by mouth once omero y 500 mg, Oral, DAILY, First dose on Kaylene 06/27/20 at 1430 take 1 tablet by killian th in the morning calcium carbonate 1500 (600 Ca) MG tablet Take 600 mg by mouth in the morning and 600 mg in the evening. Take with meals. 0 Active calcium carbonat e (OSCAL) 500 MG TABS tablet Take 1,200 mg by mouth daily 0 Active calcium carbonat e (OSCAL) 500 MG TABS tablet Take 1,200 mg by mouth daily 0 Active calcium carbonate 1500 mg / cholecalciferol 200 unt oral capsule (4 sources) Vitamin D Start: 09-28-2018 take 1 tablet by mouth twice daily Calcium Carbonate-Vitamin D3 (Calcium 600 + D(3)) 600 mg calcium- 200 unit Capsule Active 1 TAB PO Twice daily September 28, 2018 1:00am Start: 09-28-2018 take 1 tablet by killian th once daily Calcium Carbonate-Vitamin D3 (Calcium 600 + D(3)) 600 mg calcium- 200 unit Capsule Active 1 TAB PO Daily September 28, 2018 1:00am Calcium Carbonate-Vit D-Min (CALCIUM 1200 PO) (10 sources) Calcium Carbonat e-Vit D-Min (CALCIUM 1200 PO) Take by mouth 2 times daily. Active Calcium Carbonat e-Vit D-Min (CALCIUM 1200 PO) Take by mouth 2 times daily. 0 Active Calcium Carbonat e-Vit D-Min (CALCIUM 1200 PO) Take by mouth. 0 Active celecoxib 200 mg oral capsule (20 sources) Nonsteroidal Anti-inflammatory Drug Start: 12-08-2023 take 1 capsule by mouth twice daily Celecoxib 200 MG capsule Take 1 capsule by mouth 2 times daily. 180 capsule 12/08/2023 Active Start: 11-05-2022 End: 09-06-2023 take 1 capsule [...] 200 MG PO Daily September 28, 2018 1:00am End: 07-26-2023 take 1 capsule by mouth [...] antibiotics. 21 capsule 0 07/26/2023 08/02/2023 Active cranberry preparation 1000 mg oral capsule (20 sources) Non-Standardized Food Allergenic Extract, Non-Standardized Plant Allergenic Extract Start: 01-06-2024 take 1000 mg by mouth once daily at mealtime Cranberry Active 1000 MG PO Daily January 06, 2024 12:00am administer with meals Start: 01-06-2024 take 1000 mg by mout h three times daily at mealtime Cranberry Active 1000 MG PO Three times daily January 06, 2024 12:00am administer with meals Start: 11-05-2022 cranberry See Instructions, Refill(s) 0, 500 mg daily, Prophylaxis Start Date: 11/05/22 Status: Ordered Start: 11-05-2022 cranberry See Instructions, Refill(s) 0, 500 mg daily Start Date: 11/05/22 Status: Ordered Cranberry 500 MG tablet Take by mouth. 0 Active End: 07-26-2023 CRANBERRY PO Take by mouth d aily. 0 07/26/2023 Discontinued (Stop Taking at Discharge) Cranberry Active CRANBERRY PO Richar e by mouth. 0 Active Cranberry 500 MG TABS Take by mouth 0 Active cyclobenzaprine hydrochloride 10 mg oral tablet (12 sources) Muscle Relaxant Start: 06-22-2023 take 1 tablet by mouth three times daily as needed for muscle spasms cyclobenzaprine 10 mg Tab 10 mg = 1 tab(s), Oral, TID, PRN for spasm, # 30 tab(s), Refills(s) 0, Pharmacy: [facility]/pharmacy #[id number], 160, cm, 06/22/23 9:45:00 EST, Height/Length Dosing, 88.5, kg, 06/22/23 9:45:00 EST, Weight Dosing Start Date: 06/22/23 Status: Ordered Start: 01-22-2023 take 1 tablet by killian th three times daily as needed for muscle spasms cyclobenzaprine 10 mg Tab 10 mg = 1 tab(s), Oral, TID, PRN for spasm, # 30 tab(s), Refills(s) 0, Pharmacy: [facility]/pharmacy #[id number], 160, cm, 01/22/23 10:29:00 EDT, Height/Length Dosing, 98.8, kg, 01/22/23 10:29:00 EDT, Weight Dosing Start Date: 01/22/23 Status: Ordered diphenhydrAMINE hydrochloride 25 mg oral capsule (14 sources) Histamine-1 Receptor Antagonist Start: 01-06-2024 take 1 capsule by mouth once daily at bedtime Diphenhydramine Hcl (Allergy (Diphenhydramine)) 25 mg capsule Active 25 MG PO Daily at bedtime January 06, 2024 12:00am take 1 tablet by killian th at bedtime as needed diphenhydrAMINE 25 MG tablet Take 1 tabl et by mouth at bedtime as needed. Active DiphenhydrAMINE Citrate Active docusate sodium 100 mg oral capsule (20 sources) Start: 07-26-2023 End: 07-27-2023 take 1 capsule by mouth twice daily Docusate 100 MG capsule Take 1 capsule by mouth 2 times daily. 60 capsule 07/26/2023 Active Start: 11-05-2022 docusate See I nstructions, twice daily, Refills(s) 0 Start Date: 11/05/22 Status: Ordered Start: 06-27-2020 End: 07-26-2023 take 100 mg by mouth once daily 100 mg, Oral, DAILY, First dose on Wed06/27/20 at 1430 Do not crush or break. ergocalciferol 1.25 mg oral capsule (5 sources) Provitamin D2 Compound Start: 01-06-2024 take 1250 ug by mouth every week Ergocalciferol (Vitamin D2) Active 1250 MCG PO every week January 06, 2024 12:00am Start: 11-25-2023 take 1 capsule by mo uth every week Ergocalciferol 1.25 MG (60967 UT) capsule Take 1 capsule by mouth once a week. 11/25/2023 Active Estradiol (20 sources) Estrogen Start: 11-05-2022 estradiol See Instructions, once weekly, Refills(s) 0 Start Date: 11/05/22 Status: Ordered Start: 06-19-2020 0.5 g, Vaginal , TWICE WEEKLY (Once per day on Wed), First dose on Wed06/27/20 at 1430 estradiol 0.1 MG /GM cream Insert vaginally once a week. Active take 1 tablet by killian th [...] days. 5 patch 0 06/30/2020 07/14/2020 Active ferrous sulfate 325 mg oral tablet (8 sources) Start: 01-06-2024 Ferrous Sulfat e Active MG PO January 06, 2024 12:00am Start: 09-27-2023 ferrous sulfat e 325 (65 Fe) MG Tab DR tablet DR Take 1 tablet by mouth. 09/27/2023 Active Start: 09-27-2023 take 325 mg by mouth once omero y Ferrous Sulfate Active 325 MG PO Daily January 06, 2024 12:00am fluticasone propionate 0.05 mg/actuat metered dose nasal spray (10 sources) Corticosteroid Start: 01-06-2024 Fluticasone Pr opionate Active 1 SPRAY INTRANASAL Twice daily January 06, 2024 12:00am Start: 11-24-2023 Fluticasone Pr opionate Active INTRANASAL January 06, 2024 12:00am Start: 11-24-2023 Flonase Allerg y Relief 50 MCG/ACT Suspension nasal spray 2 sprays by Nasal route. 11/24/2023 Active Start: 09-23-2023 take 1 spray(s) nasa l route twice daily Flonase 0.05 mg/inh [facility] 1 spray(s), Nasal, BID, 16 gram, Refill(s) 0, each nostril, [facility]/pharmacy #[id number], 160, cm, 09/23/23 11:21:00 EST, Height/Length Dosing, 91.5, kg, 09/23/23 11:21:00 EST, Weight Dosing Start Date: 09/24/23 Status: Ordered gabapentin 300 mg oral capsule (14 sources) Anti-epileptic Agent Start: 04-08-2023 take 1 capsule by mouth once at bedtime, then take 2 capsules by mouth three times daily gabapentin 300 mg Cap See Instructions, 1 cap(s) Oral Bedtime, increase per titration schedule up to 2 caps TID, # 180 cap(s), Refills(s) 0, Pharmacy: [facility]/pharmacy #[id number], 160, cm, 04/02/23 9:46:00 EDT, Height/Length Dosing, 95.7, kg, 02/19/23 10:50:00 EDT, Weight Dosing Start Date: 04/08/23 Status: Ordered Start: 01-19-2020 take 300 mg by mouth three times daily 300 mg, Oral, 3 TIMES DAILY, First dose on Kaylene 06/27/20 at 1430 take [address] capsule [address] [facility] three times daily 500 ml glucose 50 mg/ml / potassium chloride 0.02 meq/ml / sodium chloride 4.5 mg/ml injection (1 source) Start: 06-27-2020 Intravenous, a t 100 mL/hr, CONTINUOUS, Starting Kaylene 06/27/20 at 1430, Post-op ibuprofen 200 mg oral tablet (10 sources) Nonsteroidal Anti-inflammatory Drug take 1 tablet by mouth every six hours as needed Ibuprofen 200 MG tablet Take 1 tablet by mouth Every 6 hours as needed. Active take [address] [facility] every six hours as needed ibuprofen 200 MG tablet Take 400 mg by mouth every 6 (six) hours if needed. 0 Active loperamide hydrochloride 2 mg oral capsule (2 sources) Opioid Agonist Start: 08-08-2019 take 1 capsule by mouth every twelve hours Start: 07-17-2019 take 1 capsule by mouth once d aily in the morning loratadine 10 mg oral tablet (13 sources) Start: 11-05-2022 take 10 mg by mouth once daily loratadine 10 mg, Oral, Daily, Refills(s) 0 Start Date: 11/05/22 Status: Ordered Magnesium (4 sources) Magnesium 400 MG tablet Take by mouth daily. Active Magnesium 400 MG tablet Take by mouth daily. 0 Active magnesium oxide 400 mg oral tablet (20 sources) Start: 11-05-2022 magnesium oxid e 400 mg Tab See Instructions, once daily, Refills(s) 0, Prophylaxis Start Date: 11/05/22 Status: Ordered Melatonin (20 sources) Start: 11-05-2022 melatonin See Instructions, nightly, Refills(s) 0, Insomnia Start Date: 11/05/22 Status: Ordered Start: 11-05-2022 melatonin See Instructions, nightly, Refills(s) 0 Start Date: 11/05/22 Status: Ordered Melatonin 10 MG tablet Take by mouth. Active End: 06-28-2020 Melatonin 10 MG capsule as d irected Orally 0 Active morphine (PF) injection 2 mg (1 source) Start: 06-27-2020 morphine (PF) injection 2 mg omeprazole 20 mg delayed release oral capsule (5 sources) Proton Pump Inhibitor Start: 07-26-2023 take 1 capsule by mouth once daily omeprazole [address] capsule Take 1 capsule by mouth daily. 30 capsule 07/26/2023 Active potassium 99 mg extended release oral tablet (4 sources) Potassium 99 MG tablet Take by mouth daily. Active potassium chloride 1.33 meq oral tablet (20 sources) Start: 11-05-2022 take 1 tablet by mouth once daily potassium chloride 99 mg oral tablet 99 mg = 1 tab(s), Oral, Daily, # 100 tab(s), Refills(s) 0, Prophylaxis Start Date: 11/05/22 Status: Ordered Promethazine (1 [...] 14 tablet 0 06/28/2020 07/05/2020 Active therapeutic multivitamin-supervisory examiner als tablet (5 sources) Start: 07-26-2023 take 1 tablet by mouth at bedtime therapeutic multivitamin-minerals tablet Take 1 tablet by mouth at bedtime. 30 tablet 07/26/2023 Active Start: 07-26-2023 take 1 tablet by killian th at bedtime therapeutic multivitamin-minerals tablet Take 1 [...] mg docusate sodium 50 mg / sennosides, snf 8.6 mg oral tablet (2 sources) Start: 07-26-2023 End: 07-27-2023 senna-docusate (SENOKOT-S) 8.6-50 MG per tablet 2 tablet Start: 06-27-2020 take 1 tablet by killian th twice daily 1 tablet, Oral, 2 TIMES DAILY, First dose on Kaylene 06/27/20 at 1430, Post-op 100 ml gentamicin 0.8 mg/ml injection (1 source) Start: 06-27-2020 End: 06-27-2020 gentamicin (GARAMYCIN) IVPB 80 mg glucosamine sulfate 500 mg oral tablet (4 sources) Start: 09-28-2018 End: 02-15-2024 Glucosamine Sulfate (Glucosamine) 500 mg Tablet Discontinued 1600 MG PO Daily September 28, 2018 1:00am February 15, 2024 7:27am 1 ml HYDROmorphone hydrochloride 1 mg/ml cartridge [...] (XYLOCAINE MPF) 1 % injection 5 mL Meclizine (10 sources) Antiemetic Start: 01-06-2024 End: 02-15-2024 Meclizine Discontinued MG PO January 06, 2024 12:00am February 15, 2024 7:27am Start: 01-06-2024 Meclizine Acti ve MG PO January 06, 2024 12:00am Start: 11-25-2023 take 1 tablet by killian th three times daily as needed for dizziness meclizine 12.5 mg Tab 12.5 mg = 1 tab(s), Oral, TID, PRN for dizziness, # 30 tab(s), Refills(s) 1, Pharmacy: [facility]/pharmacy #[id number], 160, cm, 11/25/23 13:03:00 EDT, Height/Length Dosing, 93.5, kg, 11/25/23 13:03:00 EDT, Weight Dosing Start Date: 11/25/23 Status: Ordered Start: 10-18-2023 take 1 tablet by killian th three times daily as needed for dizziness meclizine 12.5 mg Tab 12.5 mg = 1 tab(s), Oral, TID, PRN for dizziness, # 30 tab(s), Refills(s) 0, Pharmacy: [facility]/pharmacy #[id number], 160, cm, 09/23/23 11:21:00 EST, Height/Length Dosing, 91.5, kg, 09/23/23 11:21:00 EST, Weight Dosing Start Date: 10/18/23 Status: Ordered Start: 09-23-2023 take 1 tablet by killian th three times daily as needed for dizziness meclizine 12.5 mg Tab 12.5 mg = 1 tab(s), Oral, TID, PRN for dizziness, # 30 tab(s), Refills(s) 0, Pharmacy: [facility]/pharmacy #[id number], 160, cm, 09/23/23 11:21:00 EST, Height/Length Dosing, 91.5, kg, 09/23/23 11:21:00 EST, Weight Dosing Start Date: 09/24/23 Status: Ordered meloxicam 15 mg oral tablet (4 sources) [...] tablet 12.5 mg = 0.5 tab(s), Oral, Daily, TAKE 1/2 TABLET BY MOUTH TWICE DAILY, # 90 tab(s), Refills(s) 1, Pharmacy: [facility], 160, cm, 07/23/23 9:03:00 EST, [...] Takes half of tablet twice a day 06/05/2022 Active Start: 06-27-2020 take 12.5 mg by mout h twice daily 12.5 mg, Oral, 2 TIMES DAILY, First dose on Kaylene 06/27/20 at 1430 Do not crush or chew. Start: 09-28-2018 take 12.5 mg by mout h twice daily Metoprolol Tartrate Active 12.5 MG PO Twice daily September 28, 2018 1:00am take 1 tablet by killian th every twenty-four hours in the morning metoprolol succinate XL (Toprol-XL) 25 MG 24 hr tablet Take 25 mg by mouth in the morning and 25 mg before bedtime. 0 Active Metoprolol Succi jose m Active metoprolol succi jose m (TOPROL XL) 25 MG extended release tablet Take 12.5 mg by mouth 2 times daily 0 Active 2 ml ondansetron 2 mg/ml injection (1 source) Serotonin-3 Receptor Antagonist Start: 07-26-2023 End: 07-27-2023 take 4 mg intravenously every four hours as needed Ondansetron 4mg/2ml (ZOFRAN) injection 4 mg oxyCODONE hydrochloride 5 mg oral tablet (4 sources) Opioid Agonist Start: 07-26-2023 End: 07-27-2023 [...] prn pain. Wean as tolerated. 30 tablet 07/26/2023 Active pantoprazole 40 mg delayed release oral [...] 12 HOURS, 2 doses, First dose on Kaylene 06/27/20 at 2100, Last dose on Wed06/28/20 at 0900, Post-op Vitamin D 50,000 intl units (1.25 mg) oral capsule (3 sources) Start: 11-25-2023 End: 11-19-2024 take 1 capsule by mouth every week Vitamin D 50,000 intl units (1.25 mg) oral capsule 50,000 International_Unit = 1 cap(s), Oral, qWeek, X 90 day(s), # 13 cap(s), Refills(s) 3, Pharmacy: [facility]/pharmacy #[id number], 160, cm, 11/25/23 13:03:00 EDT, Height/Length Dosing, 93.5, kg, 11/25/23 13:03:00 EDT, Weight Dosing Start Date: 11/25/23 Stop Date: 11/19/24 Status: Ordered Start: 09-27-2023 take 1 capsule by mo uth every week Vitamin D 50,000 intl units (1.25 mg) oral capsule 50,000 International_Unit = 1 cap(s), Oral, qWeek, # 12 cap(s), Refills(s) 1, [id number] 160, cm, 09/23/23 11:21:00 EST, Height/Length Dosing, 91.5, kg, 09/23/23 11:21:00 EST, Weight Dosing Start Date: 09/27/23 Status: Ordered zolpidem tartrate 5 mg oral tablet (1 source) gamma-Aminobutyric Acid-ergic Agonist Start: 07-26-2023 End: 07-27-2023 Zolpidem (AMBIEN) tablet 5 mg Problems Active Problems Problem Classification Problem Date Documented Da te Episodic/Chronic Abdominal pain (10 sources) Left upper quadrant pain 06-22-2023 Episodic Conditions associated with dizziness or vertigo (10 sources) Dizziness; Translations: [Vertigo] 09-23-2023 Episodic Deficiency and other anemia (3 sources) Anemia 09-27-2023 Episodic Diseases of white blood cells (9 sources) Leukocytosis 07-12-2023 Chronic Disorders of lipid metabolism (10 sources) Pure hypercholesterolemia; Translations: [Pure hypercholesterolemia, unspecified] Onset: 9 06-20-2020 Chronic Diverticulosis and diverticulitis (4 sources) Diverticular disease of colon; Translations: [Diverticulosis of intestine, part unspecified, without perforation or abscess without bleeding] 11-11-2023 Chronic Essential hypertension (20 sources) Essential hypertension; Translations: [Essential (primary) hypertension] Onset: 9 06-20-2020 Chronic Genitourinary symptoms and ill-defined conditions (2 sources) Urge incontinence of urine; Translations: [Urge incontinence] Onset: 0 06-24-2020 Chronic Intestinal infection (1 source) Clostridial enteric disease; Translations: [Enterocolitis due to Clostridium difficile, not specified as recurrent] Episodic Malaise and fatigue (9 sources) Other fatigue; Translations: [Fatigue] Onset: 3 Episodic Menopausal disorders (11 sources) Menopausal and postmenopausal disorders; Translations: [Atrophy of vagina] Onset: 9 06-24-2020 Chronic Noninfectious gastroenteritis (1 source) Lymphocytic colitis; Translations: [Lymphocytic colitis] Chronic Nutritional deficiencies (5 sources) Decreased vitamin D; Translations: [Vitamin D deficiency] 09-27-2023 Chronic Osteoarthritis (10 sources) Osteoarthritis of knee; Translations: [Osteoarthritis] Onset: 9 06-24-2020 Chronic Osteoporosis (2 sources) Senile osteoporosis; Translations: [Age-related osteoporosis without current pathological fracture] Onset: 9 06-24-2020 Chronic Other acquired deformities (5 sources) Lumbar spondylolisthesis; Translations: [Spondylolisthesis, lumbar region] Onset: 9 06-24-2020 Other aftercare (3 sources) 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; Translations: [Aftercare following joint replacement surgery] 09-17-2023 Chronic Other bone disease and musculoskeletal deformities (5 sources) Osteopenia 09-15-2023 Episodic Other connective tissue disease (6 sources) History of revision of left total knee arthroplasty; Translations: [Presence of left artificial knee joint] Onset: 3 07-26-2023 Chronic Other connective tissue disease (2 sources) Presence of left artificial knee joint; Translations: [Presence of left artificial knee joint] Onset: 4 Chronic Other connective tissue disease (2 sources) History of left total knee replacement; Translations: [Presence of left artificial knee joint] 12-08-2023 Chronic Other connective tissue disease (1 source) Pain in left leg; Translations: [PAIN IN LEFT LEG] Onset: 3 Episodic Other connective tissue disease (4 sources) Arthrodesis status; Translations: [Arthrodesis status] Episodic Other connective tissue disease (20 sources) H/O: osteoarthritis 11-05-2022 Episodic Other connective tissue disease (15 sources) Spasm 01-22-2023 Episodic Other connective tissue disease (3 sources) History of lumbar fusion; Translations: [Arthrodesis status] 01-06-2024 Episodic Other connective tissue disease (2 sources) Synovial plica syndrome of left knee; Translations: [Plica syndrome, left knee] Onset: 9 06-24-2020 Other gastrointestinal disorders (1 source) Diarrhea; Translations: [Diarrhea, unspecified] Episodic Other gastrointestinal disorders (20 sources) History of gastroesophageal reflux disease 11-05-2022 Episodic Other gastrointestinal disorders (10 sources) Liquid stool 06-22-2023 Episodic Other lower respiratory disease (15 sources) Rib pain 01-22-2023 Episodic Other nervous system disorders (3 sources) Difficulty walking; Translations: [Difficulty in walking, not elsewhere classified] 09-17-2023 Chronic Other nervous system disorders (1 source) Chronic pain; Translations: [Other chronic pain] 01-31-2024 Chronic Other nervous system disorders (1 source) Other chronic pain; Translations: [Other chronic pain] 01-31-2024 Chronic Other nutritional; endocrine; and metabolic disorders (2 sources) Obesity; Translations: [Class 2 obesity in adult] Onset: 0 06-24-2020 Chronic Other nutritional; endocrine; and metabolic disorders (1 source) Metabolic syndrome; Translations: [METABOLIC SYNDROME] Onset: 3 Chronic Other nutritional; endocrine; and metabolic disorders (9 sources) Body mass index 30+ - obesity 07-12-2023 Chronic Other nutritional; endocrine; and metabolic disorders (6 sources) Obesity caused by energy imbalance; Translations: [Other obesity due to excess calories] Onset: 3 07-26-2023 Chronic Otitis media and related conditions (5 sources) Finding of fluid behind tympanic membrane 09-23-2023 Episodic Residual codes; unclassified (1 source) Pain; Translations: [Pain] Episodic Spondylosis; intervertebral disc disorders; other back problems (20 sources) Spondylosis without myelopathy or radiculopathy, lumbar region; Translations: [Inflammation of sacroiliac joint] Onset: 3 Chronic Spondylosis; intervertebral disc disorders; other back problems (20 sources) Dorsalgia, unspecified; Translations: [Intervertebral disc disorders with radiculopathy, lumbar region] Onset: 3 Episodic Unclassified (1 source) Preprocedural examination done; Translations: [Pre-op examination] Unclassified (2 sources) Long-term current use of aspirin; Translations: [snf (current) use of aspirin] Onset: 9 06-24-2020 Unclassified (18 sources) 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; Translations: [Encounter for screening for malignant neoplasm] Onset: 9 06-24-2020 Past or Other Problems Problem Classification Problem Date Documented Da te Episodic/Chronic Complication of device; implant or graft (8 sources) Joint pain; Translations: [Pain due to internal orthopedic prosthetic devices, implants and grafts, sequela] Onset: 07-26-2023 Episodic Diabetes mellitus without complication (9 sources) Prediabetes; Translations: [Prediabetes] Onset: 12-21-2018 06-20-2020 Episodic Fever of unknown origin (2 sources) Fever; Translations: [Fever, unspecified] Onset: 02-16-2020 06-24-2020 Episodic Genitourinary symptoms and ill-defined conditions (2 sources) Urgent desire to urinate; Translations: [Urinary urgency] Onset: 02-13-2020 06-24-2020 Episodic Joint disorders and dislocations; trauma-related (2 sources) Tear of medial meniscus of knee; Translations: [Other tear of medial meniscus, current injury, left knee, initial encounter] Onset: 12-21-2018 06-24-2020 Episodic Noninfectious gastroenteritis (11 sources) Colitis; Translations: [Noninfectious gastroenteritis] Onset: 06-28-2018 06-24-2020 Episodic Other aftercare (6 sources) 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; Translations: [snf (current) use of non-steroidal anti-inflammatories (NSAID)] Onset: 07-26-2023 07-26-2023 Episodic Other connective tissue disease (2 sources) Pain in left lower limb; Translations: [Pain in left leg] Onset: 12-28-2018 06-24-2020 Episodic Other gastrointestinal disorders (2 sources) Disorder of digestive tract; Translations: [Acquired absence of other specified parts of digestive tract] Onset: 12-21-2018 06-24-2020 Episodic Other nervous system disorders (1 source) Postoperative pain ; Translations: [Post-op pain] Episodic Other nervous system disorders (3 sources) Other acute postprocedural pain; Translations: [Pain in joint, lower leg] Onset: 07-26-2023 07-26-2023 Episodic Other non-traumatic joint disorders (10 sources) Pain in left knee; Translations: [Pain in joint, lower leg] Onset: 07-26-2023 02-18-2023 Episodic Other screening for suspected conditions (not mental disorders or infectious disease) (10 sources) Encounter for screening mammogram for malignant neoplasm of breast; Translations: [Screening for malignant neoplasm of colon done] Onset: 06-22-2022 Episodic Residual codes; unclassified (2 sources) Family history of breast cancer; Translations: [Family history of malignant neoplasm of breast] Onset: 06-13-2019 06-24-2020 Episodic Residual codes; unclassified (2 sources) Family history: neoplasm - trachea/bronchus/tarah g; Translations: [Family history of malignant neoplasm of [...] Test Name Value Interpretation Reference Range Facility Surgical Pathology Reporton 02-11-2024 Surgical Pathology Report [address] [address]- Surgical Pathology Report Collected Date/Time: 02/09/2024 08:40 EDT Pathologist: Andrea Alicea MD Received Date/Time: 02/09/2024 18:00 EDT Carmelo FERMIN, Rodríguez Rhodes DPM, Rodríg[facility] Surgical Pathology Report - 02/11/2024 12:46 EDT - Auth (Verified) Final Diagnosis MASS, RIGHT 4TH TOE, EXCISION: - Skin and subcutaneous tissue with simple benign epithelial cyst, hyperkeratosis and focal parakeratosis - Negative for malignancy (Electronic Signature) Shahram. Deanne MD 02/11/2024 12:46 Clinical Information Right 4th toe mass Pre-Op Diagnosis: Right 4th toe mass Procedure: Excision lesion tendon sheath/capsule with synovectomy Post-Op Diagnosis: _ Specimen(s) Received right 4th toe mass Gross Description Received in formalin labeled with patient name, number, and right 4th toe mass is figueroa skin and soft tissue measuring 1.2 x 0.7 and contains less than 0.1 cm of underlying tissue. Situated at the center of the skin is an ovoid raised figueroa nodule measuring 0.6 x 0.5 cm and is situated at the margin. The margins are inked red. Specimen is serially sectioned and entirely submitted in one cassette. (DC) DC:[facility] Microscopic Description Microscopic examination performed unless gross only specified. [facility] Comment on above: Performed By: #### 4 [id number] #### [facility] [address] [place] [address] Physician Orderon 02-09-2024 Physician Order [id number] Normal [facility] Ambulatory Visit Summaryon 0 11-25-2023 Ambulatory Visit Summary LILO REYES :1955 Visit Date:11/25/2023 Ambulatory Visit Instructions Your Diagnosis Dizziness Anemia BMI 36.0-36.9,adult Class 1 obesity due to excess calories in adult Nonsmoker Vitamin D deficiency Your Care Team Attending Physician - Jaci Tee Primary Care Physician - Jaci Tee This Is Your Medications List acetaminophen (Tylenol 325 mg oral capsule) alendronate (Fosamax 70 mg Tab) aspirin (aspirin 81 mg Oral EC Tab) calcium carbonate (calcium (as carbonate) 600 mg oral tablet) celecoxib (celecoxib 200 mg Cap) cranberry cyclobenzaprine (cyclobenzaprine 10 mg Tab) docusate ergocalciferol (Vitamin D 50,000 intl units (1.25 mg) oral capsule) estradiol ferrous sulfate (ferrous sulfate 325 mg Tab) fluticasone nasal (Flonase 0.05 mg/inh Archbold) magnesium oxide (magnesium oxide 400 mg Tab) meclizine (meclizine 12.5 mg Tab) melatonin metoprolol (Lopressor 25 mg oral tablet) potassium chloride (potassium chloride 99 mg oral tablet) Procedures Performed Colonoscopy (11/11/2023), Knee replacement (07/26/2023), Injection of nerve root of lumbar spine using fluoroscopic guidance (06/30/2023), Injection of sacroiliac joint using fluoroscopic guidance [...] Appendectomy (1983), Cholecystectomy (1983), History of tonsillectomy (1957), Colonoscopy. Discharge Vitals Temperature (Temporal Artery) 36.5 ?C Heart Rate (Peripheral) 72 Respiratory Rate 16 Blood Pressure 120/82 Height 160 cm Height 63 in Weight 93.5 kg Weight 205.7 lb BMI 36.52 What to do next Scheduled Follow-Up Appointments Wednesday 11:00 AM EDT Where: [facility] [place] [facility] CBC w/ Auto Diffon 4 Basophils/100 WBC (Bld) 0.9 % Normal 0.0-2.0 [facility] Comment on above: Performed By: #### 5 [id number] ####[address] [address] Basophils/Leukocyt es Auto (Bld) [Pure # fraction] 0.0 E9/L Normal 0.0-0.2 [facility] Comment on above: Performed By: #### 5 [id number] ####[address] [address] Eosinophils (Bld) [#/Vol] 0.2 E9/L Normal 0.0-0.5 [facility] Comment on above: Performed By: #### 5 [id number], [id number] ####[address] [address] Eosinophils/100 WBC (Bld) 3.9 % Normal 0.0-8.0 [facility] Comment on above: Performed By: #### 5 [id number], [id number] ####[place] [address] Erythrocyte distribution width (RBC) [Ratio] 14.1 % Normal 10.9-14.2 [facility] Comment on above: Performed By: #### 5 [id number], [id number] ####[address] [address] Hematocrit (Bld) [Volume fraction] 39.0 % Normal 34.0-46.0 [facility] Comment on above: Performed By: #### 5 [id number], [id number] ####[address] [address] Hemoglobin (Bld) [Mass/Vol] 12.4 g/dL Normal 12.0-16.0 [facility] Comment on above: Performed By: #### 5 [id number], [id number] ####[address] [address] Lymphocytes (Bld) [#/Vol] 1.5 E9/L Normal 1.0-4.0 [facility] Comment on above: Performed By: #### 5 [id number], [id number] ####[address] [address] Lymphocytes/100 WBC (Bld) 27.5 % Normal 14.0-50.0 [facility] Comment on above: Performed By: #### 5 [id number], [id number] ####[address] [address] MCH (RBC) [Entitic mass] 27.0 pg Normal 27.0-34.0 [facility] Comment on above: Performed By: #### 5 [id number], [id number] ####[address] [address] MCHC (RBC) [Mass/Vol] 31.8 g/dL Normal 31.4-36.0 [facility] Comment on above: Performed By: #### 5 [id number], [id number] ####[address] [address] MCV (RBC) [Entitic vol] 85.0 fL Normal 80.0-100.0 [facility] Comment on above: Performed By: #### 5 [id number], [id number] ####[address] [address] Monocytes (Bld) [#/Vol] 0.4 E9/L Normal 0.2-1.0 [facility] Comment on above: Performed By: #### 5 [id number], [id number] ####[address] [address] Neutrophils (Bld) [#/Vol] 3.3 E9/L Normal 2.0-7.5 [facility] Comment on above: Performed By: #### 5 [id number], [id number] ####[address] [address] Neutrophils/100 WBC (Bld) 60.8 % Normal 36.0-75.0 [facility] Comment on above: Performed By: #### 5 [id number], [id number] ####[address] [place] [address] Platelet 205.0 E9/L Normal 150.0-500. 0 [facility] Comment on above: Performed By: #### 5 [id number], [id number] ####[facility] [address] [place] [address] Platelet mean volume (Bld) [Entitic vol] 9.2 fL Normal 6.4-10.8 [facility] Comment on above: Performed By: #### 5 [id number], [id number] ####[facility] [address] [place] [address] RBC (Bld) [#/Vol] 4.6 E12/L Normal 4.3-5.9 [facility] Comment on above: Performed By: #### 5 [id number], [id number] ####[facility] [address] [place] [address] WBC corrected for nucl RBC Auto (Bld) [#/Vol] 5.5 E9/L Normal 4.0-11.0 [facility] Comment on above: Performed By: #### 5 [id number], [id number] ####[facility] [address] [place], [place] [id number] CHEMISTRYOrdered By: SYSTEM SYSTEM on 11-25-2023 25-hydroxyvitamin D3 [Mass/Vol] 30.4 ng/mL Normal 30.0 - 100.0 ng/mL Remisol Chem Consenton 11-25-2023 Consent [id number]#[id number] Normal [facility] Family Medicine Office/Clini c Noteon 11-25-2023 Family Medicine Office/Clinic Note HPI Staff Lilo is a 68 year old female presenting for acute visit Acute still getting dizzy when lies down during the night or in chair and goes to get up She's fine with sitting. sometimes if turns head to side too quickly. Was told at a previous visit, water in ear, so wondering if still has that. questions/concerns: needs more meclizine. and only 4 left of the weekly VIt D Attempted orthostatic BP check sitting 124/82, lying 142/84 and when went to stand about fell over so it was a semi stand bp at 120/82 History of Present Illness pt presents today for continued dizziness Review of Systems PHQ Score Initial Depression Screen Score: 0 SCORE Physical Exam Vitals & Measurements T: 36.5 ?C(Temporal Artery) HR: 72(Peripheral) RR: 16 BP: 120/82 SpO2: 97% HT: 63 in HT: 160 cm WT: 93.5 kg WT: 205.7 lb BMI: 36.52 General: alert, no acute distress ENMT: oral mucosa moist, no pharyngeal erythema or exudate, BHARAT TM full of fluid right side is bulging. no redness Cardiovascular: regular rate and rhythm, normal peripheral perfusion Respiratory: Lungs CTA, respirations non labored Extremities: no deformity, no trauma Neurological: oriented x 4, LOC appropriate for age, CN II-XII intact, motor strength equal & normal bilaterally, speech normal Assessment/Plan 1. Dizziness, (R42: Dizziness and giddiness)Vertigo pt still having dizziness. the worst is when she gets up in the middle of the night to go to the bathroom. she has to hold on to things to walk because she is so dizzy. when nurse was obtaining orthostatic Bp's when she went from laying down to sitting up she became very dizzy. Ordered: fluticasone nasal, 1 spray(s), Nasal, BID, 16 gram, Refill(s) 0, each nostril, [facility] #[id number], 160, cm, 09/23/23 11:21:00 EST, Height/Length Dosing, 91.5, kg, 09/23/23 11:21:00 EST, Weight Dosing fluticasone nasal, 1 spray(s), Nasal, BID, 16 gram, Refill(s) 5, each nostril, [id number], 160, cm, 11/11/23 7:51:00 EDT, Height/Length Dosing, 90.7, kg, 11/11/23 7:51:00 EDT, Weight Dosing meclizine, 12.5 mg = 1 tab(s), Oral, TID, PRN for dizziness, # 30 tab(s), Refills(s) 1, Pharmacy: [facility]/pharmacy #[id number], 160, cm, 11/25/23 13:03:00 EDT, Height/Length Dosing, 93.5, kg, 11/25/23 13:03:00 EDT, Weight Dosing meclizine, 12.5 mg = 1 tab(s), Oral, TID, PRN for dizziness, # 30 tab(s), Refills(s) 0, Pharmacy: [facility]/pharmacy #[id number], 160, cm, 09/23/23 11:21:00 EST, Height/Length Dosing, 91.5, kg, 09/23/23 11:21:00 EST, Weight Dosing triamcinolone, 40 mg = 1 mL, Injection, IntraMuscular, Once, Stop date 11/25/23 13:42:00 EDT, Routine, Start date 11/25/23 13:42:00 EDT, 11/25/23 13:42:00 EDT Body Mass Index (BMI) documented 3008F CBC w/ Auto Diff Current tobacco non-user 1036F Depression Screening Negative 3352F Influenza immunization administered or previously received 4274F Lab Specimen Collect 11669 Most recent diastolic blood pressure 80-89 mm Hg 3079F Patient screen for fall risk: no falls in last year or 1 fall with no injury in last year 1101F Systolic BP <130 mm Hg (Most Recent) 3074F Vitamin D 25 Hydroxy 3. Anemia (D64.9: Anemia, unspecified) will check CBC today Ordered: triamcinolone, 40 mg = 1 mL, Injection, IntraMuscular, Once, Stop date 11/25/23 13:42:00 EDT, Routine, Start date 11/25/23 13:42:00 EDT, 11/25/23 13:42:00 EDT CBC w/ Auto Diff Lab Specimen Collect 08630 Vitamin D 25 Hydroxy 4. Fluid level behind tympanic membrane of right ear (H65.91: Unspecified nonsuppurative otitis media, right ear) BHARAT Tm full of fluid. right is bulging. no redness noted on exam. will given kenalog in office today Ordered: fluticasone nasal, 1 spray(s), Nasal, BID, 16 gram, Refill(s) 0, each nostril, [facility]/pharmacy #[id number], 160, cm, 09/23/23 11:21:00 EST, Height/Length Dosing, 91.5, kg, 09/23/23 11:21:00 EST, Weight Dosing fluticasone nasal, 1 spray(s), Nasal, BID, 16 gram, Refill(s) 5, [facility]ril[id number], cm, 11/11/23 7:51:00 EDT, Height/Length Dosing, 90.7, kg, 11/11/23 7:51:00 EDT, Weight Dosing meclizine, 12.5 mg = 1 tab(s), Oral, TID, PRN for dizziness, # 30 tab(s), Refills(s) 1, [id number] 160, cm, 11/25/23 13:03:00 EDT, Height/Length Dosing, 93.5, kg, 11/25/23 13:03:00 EDT, Weight Dosing meclizine, 12.5 mg = 1 tab(s), Oral, TID, PRN for dizziness, # 30 tab(s), Refills(s) 0, [id number] 160, cm, 09/23/23 11:21:00 EST, Height/Length Dosing, 91.5, kg, 09/23/23 11:21:00 EST, Weight Dosing triamcinolone, 40 mg = 1 mL, Injection, IntraMuscular, Once, Stop date 11/25/23 13:42:00 EDT, Routine, Start date 11/25/23 13:42:00 EDT, 11/25/23 13:42:00 EDT 5. Vitamin D deficiency (E55.9: Vitamin D deficiency, unspecified) vitamin d drawn in office today Ordered: triamcinolone, 40 mg = 1 mL, Injection, IntraMuscular, Once, Stop date 11/25/23 13:42:00 EDT, Routine, Start date 11/25/23 13:42:00 EDT, 11/25/23 13:42:00 EDT CBC w/ Auto Diff Vitamin D 25 Hydroxy 6. Class 1 obesi (more content not included)... Normal [facility] Comment on above: Result Comment: Elec tronically Signed By: Nathalie COOPER, Jaci Abad\.br\Date and Time Signed: 11/25/23 14:04 EDT HEMATOLOGYOrdered By: SYSTEM SYSTEM on 11-25-2023 Basophils/100 WBC (Bld) 0.9 % Normal 0.0 - 2.0 % Remisol Heme Basophils/Leukocyt es Auto (Bld) [Pure # fraction] 0.0 E9/L Normal 0.0 - 0.2 E9/L Remisol Heme Eosinophils (Bld) [#/Vol] 0.2 E9/L Normal 0.0 - 0.5 E9/L Remisol Heme Eosinophils/100 WBC (Bld) 3.9 % Normal 0.0 - 8.0 % Remisol Heme Erythrocyte distribution width (RBC) [Ratio] 14.1 % Normal 10.9 - 14.2 % Remisol Heme Hematocrit (Bld) [Volume fraction] 39.0 % Normal 34.0 - 46.0 % Remisol Heme Hemoglobin (Bld) [Mass/Vol] 12.4 g/dL Normal 12.0 - 16.0 gm/dL Remisol Heme Lymphocytes (Bld) [#/Vol] 1.5 E9/L Normal 1.0 - 4.0 E9/L Remisol Heme Lymphocytes/100 WBC (Bld) 27.5 % Normal 14.0 - 50.0 % Remisol Heme MCH (RBC) [Entitic mass] 27.0 pg Normal 27.0 - 34.0 pg Remisol Heme MCHC (RBC) [Mass/Vol] 31.8 g/dL Normal 31.4 - 36.0 gm/dL Remisol Heme MCV (RBC) [Entitic vol] 85.0 fL Normal 80.0 - 100.0 fL Remisol Heme Monocytes (Bld) [#/Vol] 0.4 E9/L Normal 0.2 - 1.0 E9/L Remisol Heme Monocytes/100 WBC (Bld) 6.9 % Normal 4.0 - 14.0 % Remisol Heme Neutrophils (Bld) [#/Vol] 3.3 E9/L Normal 2.0 - 7.5 E9/L Remisol Heme Neutrophils/100 WBC (Bld) 60.8 % Normal 36.0 - 75.0 % Remisol Heme Platelet 205.0 E9/L Normal 150.0 - 500.0 E9/L Remisol Heme Platelet mean volume (Bld) [Entitic vol] 9.2 fL Normal 6.4 - 10.8 fL Remisol Heme RBC (Bld) [#/Vol] 4.6 E12/L Normal 4.3 - 5.9 E12/L Remisol Heme WBC corrected for nucl RBC Auto (Bld) [#/Vol] 5.5 E9/L Normal 4.0 - 11.0 E9/L Remisol Heme Vitamin D 25 Hydroxyon 11-24 25-hydroxyvitamin D3 [Mass/Vol] 30.4 ng/mL Normal 30.0-100.0 [facility] Comment on above: Performed By: #### 5 [id number] ####[facility] [address] [place] [address] Result Letter Officeon 11-16 Result Letter Office November 17, 2023 LILO REYES [address] [place] [address] : 1955 Below is a summary of the results of your recent colonoscopy. Your results have been sent to your primary care provider along with recommendations on when the procedure should be repeated. COLONOSCOPY Type of polyp no polyps identified Based on your results no repeat recommended based on age at the time due Please contact the office with any further questions or concerns or if you wish to make an appointment. [facility] [phone] Normal [facility] IntraOperative Documentson 0 11-16-2023 IntraOperative Documents [id number]#[id number] Normal [facility] Postoperative Documentson Postoperative Documents [id number]#1.00TIFF Normal [facility] Consenton 11-12-2023 Consent [id number]#1.00TIFF Normal [facility] Discharge Instructionson Discharge Instructions [id number]#1.00TIFF Normal [facility] Main OR Intraoperative Recor don 11-12-2023 Main OR Intraoperative Record IntraOp Document Type FT Summary Primary Physician: Milka Herrera MD Finalized Date/Time: 11/12/23 11:17:53 Pt. Name: LILO REYES Adan /Sex: 1955 Female Med Rec #: [id number] Physician: Milka Herrera MD Financial #: [id number] Pt. Type: O Room/Bed: / Admit/Disch: 11/11/23 07:35:54 - 11/11/23 23:59:59 Institution: Case Times FT Entry 1 Patient Times In Room 11/11/23 09:05:00 Out Room 11/11/23 09:26:00 Procedure Times Start 11/11/23 09:11:00 Stop 11/11/23 09:23:00 Anesthesia Times Start 11/11/23 09:05:00 Stop 11/11/23 09:26:00 Time at [facility] 11/11/23 09:14:00 Last Modified By: Gerson DURAN, Jada 11/11/23 09:26:30 General Comments: 11/12/23 Chart opened for charge review per Karlos Herrera RN. [place] Case Attendance FT Entry 1 Entry 2 Entry 3 Case Attendee Deirdre MEIER, Rachel Nieto RN, Cally Parkinson Role Performed ROCK WORKER Patient Portal Concierge - Primary Scrub - Primary Time In 11/11/23 09:05:00 11/11/23 09:05:00 11/11/23 09:05:00 Time Out 11/11/23 09:26:00 11/11/23 09:26:00 11/11/23 09:26:00 Procedure COLONOSCOPY(.) COLONOSCOPY(.) COLONOSCOPY(.) Comments Last Modified By: Gerson DURAN, Jada Nieto RN, Jada Nieto RN, Jada 11/11/23 09:26:36 11/11/23 09:26:36 11/11/23 09:26:36 Entry 4 Entry 5 Case Attendee Juan SAMUEL, Milka Wright MD Role Performed Staff - Other Surgeon - Primary Time In 11/11/23 09:05:00 11/11/23 09:05:00 Time Out 11/11/23 09:26:00 11/11/23 09:26:00 Procedure COLONOSCOPY(.) COLONOSCOPY(.) Comments help in room Last Modified By: Jada Nieto RN, RN, Angela 11/11/23 09:26:36 11/11/23 09:26:36 Perioperative Protocols FT Pre-Care Text: Implements protective measures prior to operative or invasive procedure, confirms identity before the operative or invasive procedure, verifies operative procedure, surgical site, and laterality Entry 1 Procedure(s) COLONOSCOPY(.) Patient Identity Birthday, ID Band Verified (select at Check, Patient least 2): Participation Consents / H and P Anesthesia Consent, Operative Site N/A Verified HandP, Surgery/Procedure Marking Verified Consent Surgical Site No Laterality Verified n/a Verified Procedure Verified Yes Correct Patient Yes Position Verified Availability Equipment, Medication Prep Dry n/a Verified (If Applicable) PreOp Antibiotic No Time Out Rachel Gilmore CRNA, Given Participants Jada Nieto RN, Sarmini MD, Milka Bo, Cally Shipman, Juan SAMUEL, Ana Arellano Time Out Complete 11/11/23 09:07:00 Outcomes Met? Yes Last Modified By: Jada Nieto RN 11/11/23 09:14:03 Post-Care Text: The patient is free from signs and symptoms of injury caused by extraneous objects Allergy Information FT Pre-Care Text: Verifies allergies Entry 1 Allergies Reviewed? Yes Allergies Reviewed Self/Patient With Outcomes Met? Yes Last Modified By: Jaad Nieto RN 11/11/23 07:55:38 Post-Care Text: The patient received appropriate medication(s) safely administered during the perioperative period Surgical Procedures FT Entry 1 Procedure Description Procedure COLONOSCOPY Modifiers . Surgeon Description Colonoscopy Primary Procedure Yes Primary Surgeon Milka Herrera MD Start 11/11/23 09:11:00 Stop 11/11/23 09:23:00 Anesthesia Type General Surgical Service Gastroenterology Wound Class 2 - Clean-Contaminated Last Modified By: Jada Nieto RN 11/11/23 09:25:57 General Case Data FT Pre-Care Text: Classifies surgical wound, implements aseptic technique, initiates traffic control Entry 1 Case Information OR ENDO 1 FT Case Level Level 2 Wound Class 2 - Clean-Contaminated Specialty Gastroenterology ASA Class 3 Preop Diagnosis SCREEN FOR COLON CANCER Postop Same As Preop No Postop Diagnosis Diveriticulosis and Outcomes Met? Yes internal hemorrhoids Last Modified By: Jada Nieto RN 11/11/23 09:26:23 Post-Care Text: The patient is free from signs and symptoms of infection Skin Assessment (Pre Procedure) FT Pre-Care Text: Implements protective measures to prevent skin/ tissue injury due to thermal or mechanical sources Evaluates for signs and symptoms of physical injury to skin and tissue Entry 1 Skin Integrity Intact, [place], Warm, and Skin Abnormality No Dry Outcomes Met? Yes Last Modified By: Jada Nieto RN 11/11/23 07:56:00 Post-Care Text: The patient is free from signs and symptoms of injury caused by extraneous objects Patient Positioning FT Pre-Care Text: Identifies physical alterations that require additional precautions for procedure-specific positioning, verifies presence of prosthetics or corrective devices, positions the patient, evaluates the patient for signs and symptoms of injury as a result of positioning Entry 1 Procedure COLONOSCOPY(.) Body Position Lateral, right side up Feet Uncrossed? Yes Left Arm Po (more content not included)... [facility] Consent for Treatmenton 10-15 Consent for Treatment [id number] Normal [facility] Discharge Instructionson Discharge Instructions LILO REYES :1955 Visit Date:11/11/2023 Inpatient Discharge Instructions Your Care Team Admitting Physician - Milka Herrera MD Referring Physician - Milka Herrera MD Reason for Your Visit SCREEN FOR COLON CANCER Your Diagnosis Colon cancer screening This Is Your Medications List acetaminophen (Tylenol 325 mg oral capsule) alendronate (Fosamax 70 mg Tab) aspirin (aspirin 81 mg Oral EC Tab) calcium carbonate (calcium (as carbonate) 600 mg oral tablet) celecoxib (celecoxib 200 mg Cap) cranberry cyclobenzaprine (cyclobenzaprine 10 mg Tab) docusate ergocalciferol (Vitamin D 50,000 intl units (1.25 mg) oral capsule) estradiol ferrous sulfate (ferrous sulfate 325 mg Tab) fluticasone nasal (Flonase 0.05 mg/inh Archbold) magnesium oxide (magnesium oxide 400 mg Tab) meclizine (meclizine 12.5 mg Tab) melatonin metoprolol (Lopressor 25 mg oral tablet) potassium chloride (potassium chloride 99 mg oral tablet) Procedure History Colonoscopy (11/11/2023), Knee replacement (07/26/2023), Injection of nerve root of lumbar spine using fluoroscopic guidance (06/30/2023), Injection of sacroiliac joint using fluoroscopic guidance [...] Appendectomy (1983), Cholecystectomy (1983), History of tonsillectomy (1957), Colonoscopy. Discharge Vitals Temperature (Temporal Artery) 36.5 ?C Heart Rate (Monitored) 56 Respiratory Rate 16 Blood Pressure 115/74 Height 160 cm Weight 90.7 kg BMI 35.43 What to do next Instructions From Your Doctor Event Name Event Result Discharge Activity Resume normal activities in 24 hours Discharge Restrictions No driving for 24 hrs Discharge Diet(s) Regular Call Your Doctor For Persistent or heavy bleeding Pharmacy Information [facility] Discharge Instructions Discharge Instructions Previously Scheduled Follow-Up Appointments Wednesday 11:00 AM EDT Where: [facility] Comment on above: Result Comment: Elec tronically Signed By: Lori DURAN, Sagrario\.br\Date and Time Signed: 11/11/23 09:45 EDT Endoscopic Procedure Report - Otheron 11-11-2023 Endoscopic Procedure Report - Other Patient: LILO REYES Age: 68 years Sex: Female : 1955 Associated Diagnoses: None Author: Milka Herrera MD Pre-Procedure Procedure Date 11/11/2023 09:24:00 . Procedure Type: Colonoscopy. Procedure provider Performed by Milka Herrera MD. Current history and physical Documented on chart. Colorectal neoplasm risk assessment Average risk. Informed Consent After discussing the rationale, risks and benefits, and alternatives to this procedure, the patient provided signed consent for the procedure. Pre-procedure diagnosis: Screening. Medications Anticoagulant/antiplatelet None. ASA Classification: Class II. . Monitoring: See anesthesia record. . Procedure The procedure was performed in the hospital. See anesthesia record for sedation given during procedure. The patient was positioned starting in the left lateral decubitus position. Endoscope type used was an adult-size. The endoscope was lubricated then introduced through the anus. The scope was advanced to the terminal ileum. No difficulties encountered during the procedure. The bowel preparation quality was adequate (see polyps greater than or equal to 6 millimeters). The patient tolerated the procedure well. Time to Cecum: 3 min Withdrawal time 9 min Findings 1. Normal rectal exam 2. Mild sigmoid diverticulosis. 3. Normal examined terminal ileum Images Procedure images: [id number]__[id number].jpg [id number]__[id number].jpg [id number]_video_[id number]__[id number].jpg [id number]_hd_video_[id number]__[id number]_[id number].jpg [id number]_hd_video__T08_25_ [id number].jpg [id number]__[id number].jpg [id number]_hd_video__T08_22_ [id number].jpg . Post-Procedure Complications: none. Estimated blood loss: none. Specimens: none. Devices/ implants: none left in place. Impression and Plan 1. Normal rectal exam 2. Mild sigmoid diverticulosis. 3. Normal examined terminal ileum Recommendations: Repeat colonoscopy:: Repeating colonoscopy is likely not indicated given no polyps in the past per patient and no family history of advanced polyps or colon cancer . Follow-up:: With primary care as previously scheduled. Diet:: Previous. Medication resumption:: Continue current medications, Avoid NSAIDs. Return to activities:: After 24 hours. Education and Follow-up: Counseled: Patient, Family. [facility] Comment on above: Result Comment: Elec tronically Signed By: Milka Herrera MD\.br\Date and Time Signed: 11/11/23 09:26 EDT Other Comment: Justine martinez Attachment - attachment storage system not supported [id number] Can be viewed in [facility] Attachment - attachment storage system not supported [id number] Can be viewed in source systemMissice Attachment - attachment storage system not supported [id number] Can be viewed in source [facility]Miss[facility] Attachment - attachment storage system not supported [id number] Can be viewed in source systemMiss[facility] Attachment - attachment storage system not supported [id number] Can be viewed in source systemMiss[facility] Attachment - attachment storage system not supported [id number] Can be viewed in source systemMissing Attachment - attachment storage system not supported [id number] Can be viewed in source system Inpatient Patient Summaryon 11-11-2023 Inpatient Patient Summary [place] [address] [facility] Clinical Discharge Instructions PERSON INFORMATION Name: LILO REYES PHYSICIANS Admitting Physician: Milka Herrera MD Attending Physician: Milka Herrera MD PCP: Jaci Tee Discharge Diagnosis: Colon cancer screening Comment: PATIENT EDUCATION INFORMATION Instructions: Medication Leaflets: Follow up: Type Location Start Finish State FM Medicare Wellness Subsequent [facility] [place] 04/10/2024 11:00 AM 04/10/2024 12:00 PM Confirmed MEDICATION LIST Medications to Continue with No Changes Other Medications acetaminophen (Tylenol 325 mg oral capsule) 2 Capsules By Mouth every 4 hours as needed as needed for pain. alendronate (Fosamax 70 mg Tab) 1 Tablets By Mouth every 7 days. Refills: 3. aspirin (aspirin 81 mg Oral EC Tab) 1 Tablets By Mouth every day., per pcp calcium carbonate (calcium (as carbonate) 600 mg oral tablet) 2 Tablets By Mouth every day. celecoxib (celecoxib 200 mg Cap) 1 Capsules By Mouth every day. Refills: 3. cranberry 500 mg daily. cyclobenzaprine (cyclobenzaprine 10 mg Tab) 1 Tablets By Mouth 3 times a day as needed for spasm. Refills: 0. docusate twice daily. ergocalciferol (Vitamin D 50,000 intl units (1.25 mg) oral capsule) 1 Capsules By Mouth every week. Refills: 1. estradiol once weekly. ferrous sulfate (ferrous sulfate 325 mg Tab) 1 Tablets By Mouth every day. Refills: 1. fluticasone nasal (Flonase 0.05 mg/inh Archbold) 1 Sprays Nasal Inhalation 2 times a day. each nostril. Refills: 0. magnesium oxide (magnesium oxide 400 mg Tab) once daily. meclizine (meclizine 12.5 mg Tab) 1 Tablets By Mouth 3 times a day as needed for dizziness. Refills: 0. melatonin nightly. metoprolol (Lopressor 25 mg oral tablet) 0.5 Tablets By Mouth 2 times a day. TAKE 1/2 TABLET BY MOUTH TWICE DAILY. Refills: 1. potassium chloride (potassium chloride 99 mg oral tablet) 1 Tablets By Mouth every day. Comment: [facility] Main OR PACU I Recordon 10-15 Main OR PACU I Record PACU Phase I Document Type FT Summary Primary Physician: Milka Herrera MD Finalized Date/Time: 11/11/23 10:20:17 Pt. Name: LILO REYES/Sex: 1955 Female Med Rec #: [id number] Physician: Milka Herrera MD Financial #: [id number] Pt. Type: O Room/Bed: / Admit/Disch: 11/11/23 07:35:54 - Institution: Case Times PACU I FT Pre-Care Text: Identifies barriers to communication and implements measures to provide psychological support Develops individualized plan of care, and ensures continuity of care Maintains patient's dignity and privacy, and maintains patient confidentiality Identifies and reports philosophical, cultural, and spiritual beliefs and values Identifies individual values and wishes concerning care Implements aseptic technique, and administers prescribed antibiotic therapy and immunizing agents as ordered Evaluates postoperative tissue perfusion Implements thermoregulation measures, and monitors body temperature Evaluates postoperative respiratory status Evaluates postoperative cardiac status Evaluates postoperative neurological status Assesses pain control, collaborated in initiating patient-controlled analgesia and implements alternative methods of pain control Verifies allergies, administers prescribed medications and solutions, evaluates response to medications Entry 1 In PACU I 11/11/23 09:27:00 Discharge from PACU 11/11/23 09:57:00 I Outcomes Met? Yes Last Modified By: Sagrario Sandoval RN 11/11/23 10:20:02 Post-Care Text: The patient demonstrates knowledge of the expected response to the operative or invasive procedure The patient's care is consistent with the individualized perioperative plan of care The patient's right to privacy is maintained The patient's value system, lifestyle, ethnicity, and culture are considered, respected, and incorporated into the perioperative plan of care The patient participates in decisions affecting his or her perioperative plan of care The patient is free from signs and symptoms of infection The patient has wound/tissue perfusion consistent with or improved from baseline levels established preoperatively The patient is at or returning to normothermia at the conclusion of the immediate postoperative period The patient's respiratory function is consistent with or improved from baseline levels established preoperatively The patient's cardiovascular status is consistent with or improved from baseline levels established preoperatively The patient's cardiovascular status is consistent with or improved from baseline levels established preoperatively The patient demonstrates and/or reports adequate pain control throughout the perioperative period The patient received appropriate medication(s), safely administered during the perioperative period Acuity Level PACU I FT Entry 1 Start Time 11/11/23 09:27:00 Stop Time 11/11/23 09:57:00 Acuity Level Acuity Level I Last Modified By: Sagrario Sandoval RN 11/11/23 10:20:14 Finalized By: Sagrario Sandoval RN Document Signatures Signed By: Sagrario Sandoval RN 11/11/23 10:20 [facility] Main OR Preoperative Recordo n 11-11-2023 Main OR Preoperative Record Holding Area Document Type FT Summary Primary Physician: Milka Herrera MD Finalized Date/Time: 11/11/23 07:53:04 Pt. Name: LILO REYES Adan MyersB./Sex: 1955 Female Med Rec #: [id number] Physician: Milka Herrera MD Financial #: [id number] Pt. Type: O Room/Bed: / Admit/Disch: 11/11/23 07:35:54 - Institution: Case Times Holding FT Pre-Care Text: Verifies consent for planned procedure, identifies individual values and wishes concerning care, includes family members in perioperative teaching Secures patient's records' belongings, and valuables, maintains patient's dignity and privacy, and maintains patient confidentiality Entry 1 In Holding 11/11/23 07:44:00 Outcomes Met? Yes Last Modified By: Deb Noguera RN 11/11/23 07:51:57 Post-Care Text: The patient participates in decisions affecting his or her perioperative plan of care The patient's right to privacy is maintained Surgery Checklist FT Entry 1 Patient Birthday, ID Band Procedure History and Physical, Identification: Check, Patient Verification: Surgical Consent, With Participation Patient NPO after Midnight: Yes Date/Time: 11/11/23 04:30:00 Personal Items: Cataract Lens Implant Personal Items bilateral cataract lens Comment: implant, bilateral knee replacement, clothes, shoes Limitations: n/a Complaints of Pain: No Pain Comment: denies Operative Site n/a Marking: Marked By: n/a Availability Equipment Verified: Does Patient Smoke No Patient states Yes Comment - Adult Chiki- spouse postop adult Supervision supervision available Case Cancelled in No Holding Area see comments below for reason Last Modified By: Deb Noguera RN 11/11/23 07:53:02 General Comments: Pt finished colon prep at 0430, states stool is clear liquid green/yellow. /,RN Finalized By: Deb Noguera RN Document Signatures Signed By: Deb Noguera RN 11/11/23 07:53 [facility] Monitor Recordon 11-11-2023 Monitor Record [id number] [facility] Monitor Record [id number] Normal [facility] Outpatient Surgery Discharge Instructionon 11-11-2023 Outpatient Surgery Discharge Instruction [address] [address] Patient Discharge Instructions PERSON INFORMATION Name: LILO REYES Date of : 1955 Current Date: 11/11/2023 09:09:17 PHYSICIANS Admitting Physician: Sharon DUBON, Milka Bo Discharge Diagnosis: Colon cancer screening LILO REYES has been given the following list of follow-up instructions, prescriptions, and patient education materials: PATIENT FOLLOW-UP INFORMATION Diet: Regular Discharge Activity: Resume normal activities in 24 hours Discharge Restrictions: No driving for 24 hrs Call Your Doctor For: Persistent or heavy bleeding IF UNABLE TO CONTACT YOUR PHYSICIAN AND YOU FEEL IT IS AN EMERGENCY, GO TO THE NEAREST EMERGENCY ROOM OR CALL 911 I, GERONIMO REYESOWEN Arellano, have received the attached patient education materials/instructions and have verbalized understanding: May we do a follow up call? Yes No I was present when discharge instructions were given Patient Signature Date Clinican/Nurse Signature Date Follow up: Type Location Start Finish State FM Medicare Wellness [facility] [place] 04/10/2024 11:00 AM 04/10/2024 12:00 PM Confirmed Pharmacy Information: [facility] You may receive a survey from Marylou Gan asking you to rate your care experience. Your feedback is important and will help us understand what we do well and how we can improve the quality of care we provide to you, your loved ones and our community. It?s an honor to serve you. Thank you for choosing [facility] HERE ARE THE MEDICATION CHANGES THAT OCCURRED DURING YOUR HOSPITAL STAY Medications to Continue with No Changes Other Medications acetaminophen (Tylenol 325 mg oral capsule) 2 Capsules By Mouth every 4 hours as needed as needed for pain. alendronate (Fosamax 70 mg Tab) 1 Tablets By Mouth every 7 days. Refills: 3. aspirin (aspirin 81 mg Oral EC Tab) 1 Tablets By Mouth every day., per pcp calcium carbonate (calcium (as carbonate) 600 mg oral tablet) 2 Tablets By Mouth every day. celecoxib (celecoxib 200 mg Cap) 1 Capsules By Mouth every day. Refills: 3. cranberry 500 mg daily. cyclobenzaprine (cyclobenzaprine 10 mg Tab) 1 Tablets By Mouth 3 times a day as needed for spasm. Refills: 0. docusate twice daily. ergocalciferol (Vitamin D 50,000 intl units (1.25 mg) oral capsule) 1 Capsules By Mouth every week. Refills: 1. estradiol once weekly. ferrous sulfate (ferrous sulfate 325 mg Tab) 1 Tablets By Mouth every day. Refills: 1. fluticasone nasal (Flonase 0.05 mg/inh Archbold) 1 Sprays Nasal Inhalation 2 times a day. each nostril. Refills: 0. magnesium oxide (magnesium oxide 400 mg Tab) once daily. meclizine (meclizine 12.5 mg Tab) 1 Tablets By Mouth 3 times a day as needed for dizziness. Refills: 0. melatonin nightly. metoprolol (Lopressor 25 mg oral tablet) 0.5 Tablets By Mouth 2 times a day. TAKE 1/2 TABLET BY MOUTH TWICE DAILY. Refills: 1. potassium chloride (potassium chloride 99 mg oral tablet) 1 Tablets By Mouth every day. PATIENT EDUCATION INFORMATION Instructions: Medication Leaflets: Shanthi Flores [facility] Patient Education - Texton 0 11-11-2023 Patient Education - Text Diverticulosis Many people have small pouches in their colon called diverticulum. The diverticulum bulge outward through weak spots in the colon. You could have one or more of these pouches in the colon. The condition of having these pouches in the colon is called diverticulosis or diverticular disease. Diverticulosis is usually diagnosed by tests to evaluate something else. For example, you may have had a colonoscopy to screen for colon cancer when the diverticulosis was found. Most people with diverticulosis do not have any discomfort or problems. If symptoms develop, they may include mild cramps, bloating, and constipation. A complication of this condition is called diverticulitis. This is when the diverticulum become inflamed and infected. How to treat diverticulosis: Increasing the amount of fiber in the diet may reduce symptoms of diverticulosis and prevent complications such as diverticulitis (infected diverticuli). Fiber keeps stool soft and lowers pressure inside the colon so that bowel contents can move through easily. You should eat 20 to 35 grams of fiber each day. The table below shows the amount of fiber in some foods that you can easily add to your diet. Adding fiber slowly may decrease the bloating and fullness sometimes felt with an immediate high fiber diet. The doctor may also recommend taking a fiber product such as Citrucel or Metamucil once a day. In the past people with diverticulosis were to avoid nuts, corn, and seeds. This has not been found to be true. If you find that certain foods create cramping or bloating, avoid that food. Foods high in fiber include: Fresh fruits, fresh vegetables, legumes (beans), whole wheat bread, bran muffins or cereal, and nuts. See the table below for examples of high fiber foods. Remember, your goal is 20-35 grams per day. Amount of fiber in different foods Food Serving Grams of fiber Fruits Apple (with skin) 1 medium apple 4.4 Banana 1 medium banana 3.1 Oranges 1 orange 3.1 Prunes 1 cup, pitted 12.4 Juices Apple, unsweetened, w/added ascorbic acid 1 cup 0.5 Grapefruit, white, canned, sweetened 1 cup 0.2 Grape, unsweetened, w/added ascorbic acid 1 cup 0.5 [place] 1 cup 0.7 Vegetables Cooked Green beans 1 cup 4.0 Carrots 1/2 cup sliced 2.3 Peas 1 cup 8.8 Potato (baked, with skin) 1 medium potato 3.8 Raw [place] (with peel) 1 cucumber 1.5 Lettuce 1 cup shredded 0.5 Tomato 1 medium tomato 1.5 Spinach 1 cup 0.7 Legumes Baked beans, canned, no salt added 1 cup 13.9 Kidney beans, canned 1 cup 13.6 [place] beans, canned 1 cup 11.6 Lentils, boiled 1 cup 15.6 Breads, pastas, flours Bran muffins 1 medium muffin 5.2 Oatmeal, cooked 1 cup 4.0 White bread 1 slice 0.6 Whole-wheat bread 1 slice 1.9 Pasta and rice, cooked Macaroni 1 cup 2.5 Rice, brown 1 cup 3.5 Rice, white 1 cup 0.6 Spaghetti (regular) 1 cup 2.5 Nuts Almonds 1/2 cup 8.7 Peanuts 1/2 cup 7.9 [facility] SEEK IMMEDIATE MEDICAL CARE IF: You develop abdominal (belly) pain. An oral temperature above _ 101? F__develops. Repeated vomiting occurs. Blood is being passed in stools (bright red or black tarry stools). You develop any bowel problems or changes which you have not had before. Extra Information: To learn how much fiber and other nutrients are in different foods, visit the [place] Department of Agriculture (USDA) National Nutrient Database at: http://www.nal.usda.gov/fnic/fo odcomp/search/ Created using data from the USDA National Nutrient Database for Standard Reference. Available at http://www.nal.usda.gov/fnic/fo odcomp/search/. Information adapted from: Edwina? Patient Information ?2009 [employer]. UpDate 2012 http://www.Enval/content s/evmtuumjmaap-ncmeqoj-uogywf-t he-basics Colonoscopy Care After Surgery Please read the instructions outlined below and refer to this sheet in the next few weeks. These discharge instructions provide you with general information on caring for yourself after you leave the hospital. Your doctor may also give you specific instructions. While your treatment has been planned according to the most current medical practices available, unavoidable complications occasionally occur. If you have any problems or questions after discharge, please call your doctor. ACTIVITY You may resume your regular activity, but move at a slower pace for the next 24 hours. Take frequent rest periods for the next 24 hours. Walking will help get rid of the air and reduce the bloated feeling in your abdomen (belly). No driving for 24 hours (because of the anesthesia (medicine) used during the test). You may shower. Do not sign any important legal documents or operate any machinery for 24 hours (because of the anesthesia used during the test). NUTRITION Drink plenty of fluids. You may resume your normal diet as instructed by your doctor. Begin with a light meal and progress (more content not included)... [facility] Progress Note-Physicianon Progress Note-Physician Patient: LILO REYES Age: 68 years Sex: Female : 1955 Associated Diagnoses: None Author: Rachel Gilmore CRNA Postoperative Information Postoperative disposition: Postoperative disposition: Home. Optimetrix number: Optimetrix number [id number]. Anesthetic utilized: General. Health Status Allergies: Allergic Reactions (Selected) Severity Not Documented Amoxicillin- Edema of face. Physical Examination Vital Signs 11/11/2023 9:35 EDT Heart Rate Monitored 56 bpm LOW Respiratory Rate Monitored 16 br/min Systolic Blood Pressure 115 mmHg Diastolic Blood Pressure 74 mmHg Blood Pressure Location Left arm SpO2 97 % 11/11/2023 9:30 EDT Heart Rate Monitored 61 bpm Respiratory Rate Monitored 15 br/min Systolic Blood Pressure 99 mmHg Diastolic Blood Pressure 54 mmHg LOW Blood Pressure Location Left arm SpO2 98 % 11/11/2023 9:27 EDT Temperature Temporal Artery 36.5 DegC Heart Rate Monitored 64 bpm Respiratory Rate Monitored 18 br/min Systolic Blood Pressure 102 mmHg Diastolic Blood Pressure 58 mmHg LOW Blood Pressure Location Left arm SpO2 94 % 11/11/2023 9:21 EDT Systolic Blood Pressure 101 mmHg mmHg Diastolic Blood Pressure 59 mmHg mmHg 11/11/2023 9:20 EDT Heart Rate Monitored 60 bpm bpm Respiratory Rate 18 br/min br/min SpO2 100 % % 11/11/2023 9:18 EDT Systolic Blood Pressure 103 mmHg mmHg Diastolic Blood Pressure 63 mmHg mmHg 11/11/2023 9:15 EDT Heart Rate Monitored 59 bpm bpm Respiratory Rate 23 br/min br/min Systolic Blood Pressure 121 mmHg mmHg Diastolic Blood Pressure 68 mmHg mmHg SpO2 99 % % 11/11/2023 9:12 EDT Systolic Blood Pressure 112 mmHg mmHg Diastolic Blood Pressure 84 mmHg mmHg 11/11/2023 9:10 EDT Heart Rate Monitored 65 bpm bpm Respiratory Rate 22 br/min br/min SpO2 99 % % 11/11/2023 9:09 EDT Systolic Blood Pressure 114 mmHg mmHg Diastolic Blood Pressure 68 mmHg mmHg 11/11/2023 9:06 EDT Systolic Blood Pressure 144 mmHg mmHg Diastolic Blood Pressure 81 mmHg mmHg 11/11/2023 9:05 EDT Respiratory Rate 15 br/min br/min 11/11/2023 8:04 EDT Temperature Temporal Artery 36.3 DegC Heart Rate Monitored 72 bpm Respiratory Rate Monitored 17 br/min Systolic Blood Pressure 134 mmHg Diastolic Blood Pressure 76 mmHg Blood Pressure Location Left arm SpO2 98 % Pain Assessment: Controlled. General: Awake, Alert, Appropriate. Respiratory: Adequate air exchange, Non-labored. Cardiovascular: Stable, Normal peripheral perfusion. Neurological: Neurologic exam at baseline. No changes.. Assessment Anesthetic outcome No anesthetic complications noted. No nausea/vomiting. Review / Management Condition: Stable. Plan Transfer/Discharge: Transfer/Discharge Discharge when meets criteria ( From PACU to Ambulatory Surgery Unit, and To home ). [facility] Comment on above: Result Comment: Elec tronically Signed By: Rachel Gilmore CRNA\.br\Date and Time Signed: 11/11/23 09:40 EDT Progress Note-Physician Patient: LILO REYES Age: 68 years Sex: Female : 1955 Associated Diagnoses: None Author: Rachel Gilmore CRNA Preoperative Information Anesthesia history: Patient history: No prior anesthetic problems. Informed consent: Signed by patient. Re-evaluation prior to induction: Initial evaluation reviewed: No significant change. Review of Systems Respiratory: Negative except as documented in history of present illness. Cardiovascular: Negative except as documented in history of present illness. Health Status Allergies: Allergic Reactions (Selected) Severity Not Documented Amoxicillin- Edema of face., Allergies (1) Active Severity Reaction amoxicillin Edema of face Current medications: (Selected) Inpatient Medications Ordered Lactated Ringers IV Karyn 1000 mL 1,000 mL: 1,000 mL, IV, 100 mL/hr, Routine, Start date 11/11/23 7:47:00 EDT, 10 hour(s), Total volume (mL): 1,000 Sodium Chloride 0.9% IV Karyn 1000 mL 1,000 mL: 1,000 mL, IV, 20 mL/hr, Routine, Start date 11/11/23 6:39:00 EDT, 50 hour(s), Total volume (mL): 1,000 Prescriptions Prescribed Flonase 0.05 mg/inh Archbold: 1 spray(s), Nasal, BID, 16 gram, Refill(s) 0, [id number], cm, 09/23/23 11:21:00 EST, Height/Length Dosing, 91.5, kg, 09/23/23 11:21:00 EST, Weight Dosing Fosamax 70 mg Tab: 70 mg = 1 tab(s), Oral, q7day, # 12 tab(s), Refills(s) 3, [id number] 160, cm, 07/23/23 9:03:00 EST, Height/Length Dosing, 85.7, kg, 07/23/23 9:03:00 EST, Weight Dosing Lopressor 25 mg oral tablet: 12.5 mg = 0.5 tab(s), Oral, BID, TAKE 1/2 TABLET BY MOUTH TWICE DAILY, # 90 tab(s), Refills(s) 1, Pharmacy: [id number], 160, cm, 07/23/23 9:03:00 EST, Height/Length Dosing, 85.7, kg, 07/23/23 9:03:00 EST, Weight Dosing Vitamin D 50,000 intl units (1.25 mg) oral capsule: 50,000 International_Unit = 1 cap(s), Oral, qWeek, # 12 cap(s), Refills(s) 1, Pharmacy: [facility]/pharmacy #[id number], 160, cm, 09/23/23 11:21:00 EST, Height/Length Dosing, 91.5, kg, 09/23/23 11:21:00 EST, Weight Dosing celecoxib 200 mg Cap: 200 mg = 1 cap(s), Oral, Daily, # 90 cap(s), Refills(s) 3, Pharmacy: [facility], 160, cm, 09/15/23 8:55:00 EST, Height/Length Dosing, 89.9, kg, 09/15/23 8:55:00 EST, Weight Dosing cyclobenzaprine 10 mg Tab: 10 mg = 1 tab(s), Oral, TID, PRN for spasm, # 30 tab(s), Refills(s) 0, [id number] 160, cm, 06/22/23 9:45:00 EST, Height/Length Dosing, 88.5, kg, 06/22/23 9:45:00 EST, Weight Dosing ferrous sulfate 325 mg Tab: 325 mg = 1 tab(s), Oral, Daily, # 90 tab(s), Refills(s) 1, [id number] 160, cm, 09/23/23 11:21:00 EST, Height/Length Dosing, 91.5, kg, 09/23/23 11:21:00 EST, Weight Dosing meclizine 12.5 mg Tab: 12.5 mg = 1 tab(s), Oral, TID, PRN for dizziness, # 30 tab(s), Refills(s) 0, [id number] 160, cm, 09/23/23 11:21:00 EST, Height/Length Dosing, 91.5, kg, 09/23/23 11:21:00 EST, Weight Dosing Documented Medications Documented Tylenol 325 mg oral capsule: 650 mg = 2 cap(s), Oral, q4hr, PRN as needed for pain, Refills(s) 0 aspirin 81 mg Oral EC Tab: 81 mg = 1 tab(s), Oral, Daily, Refills(s) 0 calcium (as carbonate) 600 mg oral tablet: 1,200 mg = 2 tab(s), Oral, Daily, Refills(s) 0, Prophylaxis cranberry: See Instructions, Refill(s) 0, 500 mg daily, Prophylaxis docusate: See Instructions, twice daily, Refills(s) 0 estradiol: See Instructions, once weekly, Refills(s) 0 magnesium oxide 400 mg Tab: See Instructions, once daily, Refills(s) 0, Prophylaxis melatonin: See Instructions, nightly, Refills(s) 0, Insomnia potassium chloride 99 mg oral tablet: 99 mg = 1 tab(s), Oral, Daily, # 100 tab(s), Refills(s) 0, Prophylaxis, Home Medications (17) Active aspirin 81 mg Oral EC Tab 81 mg = 1 tab(s), Oral, Daily calcium (as carbonate) 600 mg oral tablet 1,200 mg = 2 tab(s), Oral, Daily celecoxib 200 mg Cap 200 mg = 1 cap(s), Oral, Daily cranberry See Instructions cyclobenzaprine 10 mg Tab 10 mg = 1 tab(s), PRN, Oral, TID docusate See Instructions estradiol See Instructions ferrous sulfate 325 mg Tab 325 mg = 1 tab(s), Oral, Daily Flonase 0.05 mg/inh Archbold 1 spray(s), Nasal, BID Fosamax 70 mg Tab 70 mg = 1 tab(s), Oral, q7day Lopressor 25 mg oral tablet 12.5 mg = 0.5 tab(s), Oral, BID magnesium oxide 400 mg Tab See Instructions meclizine 12.5 mg Tab 12.5 mg = 1 tab(s), PRN, Oral, TID melatonin See Instructions potassium chloride 99 mg oral tablet 99 mg = 1 tab(s), Oral, Daily Tylenol 325 mg oral capsule 650 mg = 2 cap(s), PRN, Oral, q4hr Vitamin D 50,000 intl units (1.25 mg) oral capsule 50,000 International_Unit = 1 cap(s), Oral, qWeek , Medications (2) Active Scheduled: (0) Continuous: (2) Lactated Ringers 1,000 mL 1,000 mL, IV, 100 mL/hr Sodium Chloride 0.9% 1,000 mL 1,000 mL, IV, 20 mL/hr PRN: (0) Problem list: All Problems Anemia / SNOMED CT 864402442 / Confirmed BMI 34.0-34.9,adult / SNOM (more content not included)... [facility] Comment on above: Result Comment: Elec tronically Signed By: Rachel Gilmore CRNA\Date and Time Signed: 11/11/23 08:01 EDT CBC w/ Auto Diffon 4 Basophil Absolute 0.0 E9/L Normal 0.0-0.2 [facility] Comment on above: Performed By: #### 5 [id number], [id number], [id number] ####[address] [address] Basophils/100 WBC (Bld) 0.9 % Normal 0.0-2.0 [facility] Comment on above: Performed By: #### 5 [id number], [id number], 6292588, [id number] ####[address] [address] Eos Absolute 0.2 E9/L Normal 0.0-0.5 [facility] Comment on above: Performed By: #### 5 [id number], 9698835, 3737219, [id number] ####[address] [address] Eosinophils/100 WBC (Bld) 3.4 % Normal 0.0-8.0 [facility] Comment on above: Performed By: #### 5 [id number], [id number], 7543614, [id number] ####[address] [address] Erythrocyte distribution width (RBC) [Ratio] 15.2 % High 10.9-14.2 [facility] Comment on above: Performed By: #### 5 [id number], 5398315, 3614926, [id number] ####[address] [place] [address] Hematocrit (Bld) [Volume fraction] 35.0 % Normal 34.0-46.0 [facility] Comment on above: Performed By: #### 5 [id number], 7825447, 8140545, [id number] ####[address] [address] Hemoglobin (Bld) [Mass/Vol] 11.1 g/dL Low 12.0-16.0 [facility] Comment on above: Performed By: #### 5 [id number], 5841082, 2833018, 52067074 ####[facility] [address] [place] [address] Lymph Absolute 1.5 E9/L Normal 1.0-4.0 [facility] Comment on above: Performed By: #### 5 [id number], 6248413, 8020141, 12084184 ####[address] [address] Lymphocytes/100 WBC (Bld) 29.0 % Normal 14.0-50.0 [facility] Comment on above: Performed By: #### 5 [id number], 3994272, 5665406, 91682136 ####[address] [address] MCH (RBC) [Entitic mass] 26.6 pg Low 27.0-34.0 [facility] Comment on above: Performed By: #### 5 [id number], 5993516, 0013359, 90906877 ####[address] [address] MCHC (RBC) [Mass/Vol] 31.2 g/dL Low 31.4-36.0 [facility] Comment on above: Performed By: #### 5 [id number], 0181579, 6939388, 71744249 ####[address] [address] MCV (RBC) [Entitic vol] 85.1 fL Normal 80.0-100.0 [facility] Comment on above: Performed By: #### 5 [id number], 9534334, 6832689, 08732853 ####[address] [address] [place] Absolute 0.4 E9/L Normal 0.2-1.0 [facility] Comment on above: Performed By: #### 5 [id number], 2160432, 0306094, 93072869 ####[address] [place] [address] Monocytes/100 WBC (Bld) 7.6 % Normal 4.0-14.0 [facility] Comment on above: Performed By: #### 5 [id number], 5964111, 1561474, 88151280 ####[address] [place] [address] Neutro Absolute 3.1 E9/L Normal 2.0-7.5 [facility] Comment on above: Performed By: #### 5 [id number], 7611067, 3292192, 26853555 ####[address] [address] Neutro Auto 59.1 % Normal 36.0-75.0 [facility] Comment on above: Performed By: #### 5 [id number], 6854297, 0916767, 30843571 ####[address] [address] Platelet 198.0 E9/L Normal 150.0-500. 0 [facility] Comment on above: Performed By: #### 5 [id number], 8884759, 9663177, 82274952 ####[address] [address] Platelet mean volume (Bld) [Entitic vol] 9.4 fL Normal 6.4-10.8 [facility] Comment on above: Performed By: #### 5 [id number], 2652533, 6049898, [id number] ####[address] [place] [address] RBC 4.2 E12/L Low 4.3-5.9 [facility] Comment on above: Performed By: #### 5 [id number], 2194389, 4242392, 37965763 ####[address] [address] WBC 5.2 E9/L Normal 4.0-11.0 [facility] Comment on above: Performed By: #### 5 [id number], 4625470, 2710611, 74237282 ####[facility] [id number] [place] [address] CHEMISTRYOrdered By: SYSTEM SYSTEM on 09-24-2023 Iron [Mass/Vol] 41 ug/dL Normal 35 - 153 mcg/dL Remisol Chem TIBC 395 ug/dL Normal 250 - 400 mcg/dL Remisol Chem Transferrin [Mass/Vol] 282 mg/dL Normal 200 - 370 mg/dL Remisol Chem Vitamin D 25 Hydroxy 24.5 ng/mL Low 30.0 - 100.0 ng/mL Remisol Chem HEMATOLOGYOrdered By: SYSTEM SYSTEM on 09-24-2023 Basophil Absolute 0.0 E9/L Normal 0.0 - 0.2 E9/L Remisol Heme Basophils/100 WBC (Bld) 0.9 % Normal 0.0 - 2.0 % Remisol Heme Eos Absolute 0.2 E9/L Normal 0.0 - 0.5 E9/L Remisol Heme Eosinophils/100 WBC (Bld) 3.4 % Normal 0.0 - 8.0 % Remisol Heme Erythrocyte distribution width (RBC) [Ratio] 15.2 % High 10.9 - 14.2 % Remisol Heme Hematocrit (Bld) [Volume fraction] 35.0 % Normal 34.0 - 46.0 % Remisol Heme Hemoglobin (Bld) [Mass/Vol] 11.1 g/dL Low 12.0 - 16.0 gm/dL Remisol Heme Lymph Absolute 1.5 E9/L Normal 1.0 - 4.0 E9/L Remisol Heme Lymphocytes/100 WBC (Bld) 29.0 % Normal 14.0 - 50.0 % Remisol Heme MCH (RBC) [Entitic mass] 26.6 pg Low 27.0 - 34.0 pg Remisol Heme MCHC (RBC) [Mass/Vol] 31.2 g/dL Low 31.4 - 36.0 gm/dL Remisol Heme MCV (RBC) [Entitic vol] 85.1 fL Normal 80.0 - 100.0 fL Remisol Heme [place] Absolute 0.4 E9/L Normal 0.2 - 1.0 E9/L Remisol Heme Monocytes/100 WBC (Bld) 7.6 % Normal 4.0 - 14.0 % Remisol Heme Neutro Absolute 3.1 E9/L Normal 2.0 - 7.5 E9/L Remisol Heme Neutro Auto 59.1 % Normal 36.0 - 75.0 % Remisol Heme Platelet 198.0 E9/L Normal 150.0 - 500.0 E9/L Remisol Heme Platelet mean volume (Bld) [Entitic vol] 9.4 fL Normal 6.4 - 10.8 fL Remisol Heme RBC 4.2 E12/L Low 4.3 - 5.9 E12/L Remisol Heme WBC 5.2 E9/L Normal 4.0 - 11.0 E9/L Remisol Heme Ironon 09-24-2023 Iron 41 microgram/dL Normal 35-153 [facility] Comment on above: Performed By: #### 5 [id number], 6127336, 1633595, [id number] ####[facility] [id number] [place] [address] TIBC Calculatedon 09-24-2023 TIBC 395 microgram/dL Normal 250-400 [facility] Comment on above: Performed By: #### 5 [id number], 6985381, 7732631, [id number] ####[facility] [address] [place] [address] Transferrin [Mass/Vol] 282 mg/dL Normal 200-370 [facility] Comment on above: Performed By: #### 5 [id number], 5819154, 2595080, 95920848 ####[facility] [id number] [place] [address] Vitamin D 25 Hydroxyon 09-24 Vitamin D 25 Hydroxy 24.5 ng/mL Low 30.0-100.0 [facility] Comment on above: Performed By: #### 5 [id number], 0891501, 9670987, 02073093 ####[facility] [address] [place] [address] Ambulatory Visit Summaryon 0 09-23-2023 Ambulatory Visit Summary LILO REYES :1955 Visit Date:09/23/2023 Ambulatory Visit Instructions Your Diagnosis Dizziness, Vertigo Fatigue Fluid level behind tympanic membrane of right ear Your Care Team Attending Physician - Jaci Tee Primary Care Physician - Jaci Tee This Is Your Medications List acetaminophen (Tylenol 325 mg oral capsule) alendronate (Fosamax 70 mg Tab) aspirin (aspirin 81 mg Oral EC Tab) calcium carbonate (calcium (as carbonate) 600 mg oral tablet) celecoxib (celecoxib 200 mg Cap) cranberry cyclobenzaprine (cyclobenzaprine 10 mg Tab) docusate estradiol fluticasone nasal (Flonase 0.05 mg/inh Archbold) magnesium oxide (magnesium oxide 400 mg Tab) meclizine (meclizine 12.5 mg Tab) melatonin metoprolol (Lopressor 25 mg oral tablet) potassium chloride (potassium chloride 99 mg oral tablet) Procedures Performed Knee replacement (07/26/2023), Injection of nerve root of lumbar spine using fluoroscopic guidance (06/30/2023), Injection of sacroiliac joint using fluoroscopic guidance [...] Appendectomy (1983), Cholecystectomy (1983), History of tonsillectomy (1957), Colonoscopy. Discharge Vitals Heart Rate (Peripheral) 48 Respiratory Rate 18 Blood Pressure 112/78 Height 160.0 cm Height 63 in Weight 91.5 kg Weight 201.3 lb BMI 35.74 What to do next Scheduled Follow-Up Appointments 2023 8:45 AM EDT Where: [facility] Surgical Services Wednesday 11:00 AM EDT [facility] 09-23-2023 Family Medicine Office/Clinic Note HPI Staff Anibal is a 68 year old female presenting for acute visit Onset: 1 day ago while at therapy went to sit up and room started spinning. Intermittent room spinning with sudden movements. Pt took first dose of fosamax on wednesday. Pt would like to go over x-ray from 09/16/23 History of Present Illness pt c/o dizziness that started on Wednesday. started taking fosamax on Wednesday Review of Systems PHQ Score Initial Depression Screen Score: 0 SCORE ROS - Provider Constitutional: no fever, no chills, no sweats, no fatigue Respiratory: no shortness of breath, no cough, no orthopnea, no wheezing. Cardiovascular: no chest pain, no palpitations, no edema. Neurologic: no headache, no dizziness, no numbness, no weakness. dizziness when changing positions Physical Exam Vitals & Measurements HR: 48(Peripheral) RR: 18 BP: 112/78 SpO2: 95% HT: 63 in HT: 160.0 cm WT: 91.5 kg WT: 201.3 lb BMI: 35.74 General: alert, no acute distress ENMT: oral mucosa moist, no pharyngeal erythema or exudate Cardiovascular: regular rate and rhythm, normal peripheral perfusion Respiratory: Lungs CTA, respirations non labored Extremities: no deformity, no trauma Neurological: oriented x 4, LOC appropriate for age, CN II-XII intact, motor strength equal & normal bilaterally, speech normal Assessment/Plan 1. Dizziness, (R42: Dizziness and giddiness)Vertigo Labs drawn in office today. meclizine sent to pharmacy as well as flonase. discussed possible causes of the dizziness including new medication, low HGB or iron, fluid in right TM. pt will take fosamax again on wednesday. if she starts to get dizziness again, will d/c it and start vitamin c and d instead. RTC as needed. Ordered: fluticasone nasal, 1 spray(s), Nasal, BID, 16 gram, Refill(s) 0, each nostril, [facility], 160, cm, 09/23/23 11:21:00 EST, Height/Length Dosing, 91.5, kg, 09/23/23 11:21:00 EST, Weight Dosing meclizine, 12.5 mg = 1 tab(s), Oral, TID, PRN for dizziness, # 30 tab(s), Refills(s) 0, Pharmacy: [facility], 160, cm, 09/23/23 11:21:00 EST, Height/Length Dosing, 91.5, kg, 09/23/23 11:21:00 EST, Weight Dosing 2. Fatigue (R53.83: Other fatigue) labs drawn in office today Ordered: fluticasone nasal, 1 spray(s), Nasal, BID, 16 gram, Refill(s) 0, each nostril, [facility], 160, cm, 09/23/23 11:21:00 EST, Height/Length Dosing, 91.5, kg, 09/23/23 11:21:00 EST, Weight Dosing meclizine, 12.5 mg = 1 tab(s), Oral, TID, PRN for dizziness, # 30 tab(s), Refills(s) 0, Pharmacy: [facility], 160, cm, 09/23/23 11:21:00 EST, Height/Length Dosing, 91.5, kg, 09/23/23 11:21:00 EST, Weight Dosing 3. Fluid level behind tympanic membrane of right ear (H65.91: Unspecified nonsuppurative otitis media, right ear) Right TM full of clear fluid. flonase ordered. pt encouraged to get zyrtec or claritin OTC. Ordered: fluticasone nasal, 1 spray(s), Nasal, BID, 16 gram, Refill(s) 0, each nostril, [facility], 160, cm, 09/23/23 11:21:00 EST, Height/Length Dosing, 91.5, kg, 09/23/23 11:21:00 EST, Weight Dosing meclizine, 12.5 mg = 1 tab(s), Oral, TID, PRN for dizziness, # 30 tab(s), Refills(s) 0, Pharmacy: [facility], 160, cm, 09/23/23 11:21:00 EST, Height/Length Dosing, 91.5, kg, 09/23/23 11:21:00 EST, Weight Dosing Follow-up No qualifying data available Problem List/Past Medical History Ongoing BMI 34.0-34.9,adult Dizziness Elevated WBC count Encounter for preoperative examination for general surgical procedure Fatigue Fluid level behind tympanic membrane of right ear H/O gastroesophageal reflux (GERD) H/O: osteoarthritis HTN (hypertension) Left upper quadrant pain Lower back pain Menopausal state Muscle spasm Neck pain Osteopenia Rib pain on left side Sacroiliitis Screen for colon cancer Vertigo Watery stools Historical No qualifying data Procedure/Surgical History Knee replacement (07/26/2023), Injection of nerve root of lumbar spine using fluoroscopic guidance (06/30/2023), Injection of sacroiliac joint using fluoroscopic guidance [...] Appendectomy (1983), Cholecystectomy (1983), History of tonsillectomy (1957), Colonoscopy. Medications aspirin 81 mg Oral EC Tab, 81 mg= 1 tab(s), Oral, Daily calcium (as carbonate) 600 mg oral tablet, 1200 mg= 2 tab(s), Oral, Daily celecoxib 200 mg Cap, 200 mg= 1 cap(s), Oral, Daily, 3 refills cranberry, See Instructions cyclobenzaprine 10 mg Tab, 10 mg= 1 tab(s), Oral, TID, PRN docusate, See Instructio (more content not included)... Normal [facility] Comment on above: Result Comment: Elec tronically Signed By: Jaci Tee\.lyndsey\Date and Time Signed: 09/23/23 12:18 EST Family Medicine Office/Clini c Noteon 09-15-2023 Family Medicine Office/Clinic Note Chief Complaint dexascan results HPI Staff Lilo is a 68 year old female presenting to discuss Dexa scan. Here with today. Pt had Dexa scan done 09/07/23 Dr. Wilmar bertrand that did patient's left knee replacement told patient to discuss the dexascan with pcp prior to starting Fosamax. History of Present Illness pt presents today to go over Dexa scan results Review of Systems PHQ Score Initial Depression Screen Score: 0 SCORE ROS - Provider Constitutional: no fever, no chills, no sweats, no fatigue Respiratory: no shortness of breath, no cough, no orthopnea, no wheezing. Cardiovascular: no chest pain, no palpitations, no edema. Neurologic: no headache, no dizziness, no numbness, no weakness. neck and shoulder pain both shoulders Physical Exam Vitals & Measurements HR: 60(Peripheral) BP: 130/70 SpO2: 97% HT: 63 in HT: 160 cm WT: 89.9 kg WT: 197.78 lb BMI: 35.12 General: alert, no acute distress ENMT: oral mucosa moist, no pharyngeal erythema or exudate Cardiovascular: regular rate and rhythm, normal peripheral perfusion Respiratory: Lungs CTA, respirations non labored Extremities: no deformity, no trauma Neurological: oriented x 4, LOC appropriate for age, CN II-XII intact, motor strength equal & normal bilaterally, speech normal walking with cane from knee surgery limited ROm of both shoulders Assessment/Plan 1. Osteopenia (M85.80: Other specified disorders of bone density and structure, unspecified site) pt presents today to discuss Dexa Scan results. She had knee replacement and was told her knee bone was very brittle. Fosamax was ordered but Ortho surgeon told her to not take it until she was seen by me. Pt will start Fosamax next week. all questions answered. RTC as needed Ordered: Body Mass Index (BMI) documented 3008F Current tobacco non-user 1036F Depression Screening Negative 3352F Medication list documented in medical record 1159F Patient screen for fall risk: no falls in last year or 1 fall with no injury in last year 1101F 2. Neck pain (M54.2: Cervicalgia) pt c/o worsening neck pain. as well as bilateral shoulder pain. pt has been using a walker. and thinks she has shoulders and neck flared up from that. pt is taking celebrex. will order cervical spine x ray. to be done at [facility] 3. BMI 34.0-34.9,adult (Z68.34: Body mass index [BMI] 34.0-34.9, adult) BMI education complete Ordered: Body Mass Index (BMI) documented 3008F Current tobacco non-user 1036F Depression Screening Negative 3352F Medication list documented in medical record 1159F Patient screen for fall risk: no falls in last year or 1 fall with no injury in last year 1101F Orders: celecoxib, 200 mg = 1 cap(s), Oral, Daily, # 90 cap(s), Refills(s) 3, Pharmacy: [facility], 160, cm, 09/15/23 8:55:00 EST, Height/Length Dosing, 89.9, kg, 09/15/23 8:55:00 EST, Weight Dosing Follow-up No qualifying data available Patient Education Osteopenia Problem List/Past Medical History Ongoing BMI 34.0-34.9,adult Elevated WBC count Encounter for preoperative examination for general surgical procedure H/O gastroesophageal reflux (GERD) H/O: osteoarthritis HTN (hypertension) Left upper quadrant pain Lower back pain Menopausal state Muscle spasm Neck pain Osteopenia Rib pain on left side Sacroiliitis Screen for colon cancer Watery stools Historical No qualifying data Procedure/Surgical History Knee replacement (07/26/2023), Injection of nerve root of lumbar spine using fluoroscopic guidance (06/30/2023), Injection of sacroiliac joint using fluoroscopic guidance [...] Appendectomy (1983), Cholecystectomy (1983), History of tonsillectomy (1957), Colonoscopy. Medications aspirin 81 mg Oral EC Tab, 81 mg= 1 tab(s), Oral, Daily calcium (as carbonate) 600 mg oral tablet, 1200 mg= 2 tab(s), Oral, Daily celecoxib 200 mg Cap, 200 mg= 1 cap(s), Oral, BID celecoxib 200 mg Cap, 200 mg= 1 cap(s), Oral, Daily, 3 refills cranberry, See Instructions cyclobenzaprine 10 mg Tab, 10 mg= 1 tab(s), Oral, TID, PRN, Not taking docusate, See Instructions estradiol, See Instructions Fosamax 70 mg Tab, 70 mg= 1 tab(s), Oral, q7day, 3 refills, Not taking Lopressor 25 mg oral tablet, 12.5 mg= 0.5 tab(s), Oral, BID, 1 refills magnesium oxide 400 mg Tab, See Instructions melatonin, See Instructions potassium chloride 99 mg oral tablet, 99 mg= 1 tab(s), Oral, Daily Tylenol 325 mg oral capsule, 650 mg= 2 cap(s), Oral, q4hr, PRN Allergies a (more content not included)... [facility] Comment on above: Result Comment: Elec tronically Signed By: Jaci Tee\.br\Date and Time Signed: 09/15/23 09:54 EST Patient Educationon 09-15-19 24 Patient Education Orthopedics Osteopenia Osteopenia is a loss of thickness (density) inside the bones. Another name for osteopenia is low bone mass. Mild osteopenia is a normal part of aging. It is not a disease, and it does not cause symptoms. However, if you have osteopenia and continue to lose bone mass, you could develop a condition that causes the bones to become thin and break more easily (osteoporosis). Osteoporosis can cause you to lose some height, have back pain, and have a stooped posture. Although osteopenia is not a disease, making changes to your lifestyle and diet can help to prevent osteopenia from developing into osteoporosis. What are the causes? Osteopenia is caused by loss of calcium in the bones. Bones are constantly changing. Old bone cells are continually being replaced with new bone cells. This process builds new bone. The mineral calcium is needed to build new bone and maintain bone density. Bone density is usually highest around age 35. After that, most people's bodies cannot replace all the bone they have lost with new bone. What increases the risk? You are more likely to develop this condition if: ? You are older than age 50. ? You are a woman who went through menopause early. ? You have a long illness that keeps you in bed. ? You do not get enough exercise. ? You lack certain nutrients (malnutrition). ? You have an overactive thyroid gland (hyperthyroidism). ? You use products that contain nicotine or tobacco, such as cigarettes, e-cigarettes and chewing tobacco, or you drink a lot of alcohol. ? You are taking medicines that weaken the bones, such as steroids. What are the signs or symptoms? This condition does not cause any symptoms. You may have a slightly higher risk for bone breaks (fractures), so getting fractures more easily than normal may be an indication of osteopenia. How is this diagnosed? This condition may be diagnosed based on an X-ray exam that measures bone density (dual-energy X-ray absorptiometry, or DEXA). This test can measure bone density in your hips, spine, and wrists. Osteopenia has no symptoms, so this condition is usually diagnosed after a routine bone density screening test is done for osteoporosis. This routine screening is usually done for: ? Women who are age 65 or older. ? Men who are age 70 or older. If you have risk factors for osteopenia, you may have the screening test at an earlier age. How is this treated? Making dietary and lifestyle changes can lower your risk for osteoporosis. If you have severe osteopenia that is close to becoming osteoporosis, this condition can be treated with medicines and dietary supplements such as calcium and vitamin D. These supplements help to rebuild bone density. Follow these instructions at home: Eating and drinking Eat a diet that is high in calcium and vitamin D. ? Calcium is found in dairy products, beans, salmon, and leafy green vegetables like spinach and broccoli. ? Look for foods that have vitamin D and calcium added to them (fortified foods), such as orange juice, cereal, and bread. Lifestyle ? Do 30 minutes or more of a weight-bearing exercise every day, such as walking, jogging, or playing a sport. These types of exercises strengthen the bones. ? Do not use any products that contain nicotine or tobacco, such as cigarettes, e-cigarettes, and chewing tobacco. If you need help quitting, ask your health care provider. ? Do not drink alcohol if: ? Your health care provider tells you not to drink. ? You are , may be , or are planning to become . ? If you drink alcohol: ? Limit how much you use to: ? 0?1 drink a day for women. ? 0?2 drinks a day for men. ? Be aware of how much alcohol is in your drink. In the [place] one drink equals one 12 oz bottle of beer (355 mL), one 5 oz glass of wine (148 mL), or one 1? oz glass of hard liquor (44 mL). General instructions ? Take exde-sfe-tdknpte and prescription medicines only as told by your health care provider. These include vitamins and supplements. ? Take precautions at home to lower your risk of falling, such as: ? Keeping rooms well-lit and free of clutter, such as cords. ? Installing safety rails on stairs. ? Using rubber mats in the bathroom or other areas that are often wet or slippery. ? Keep all follow-up visits. This is important. Contact a health care provider if: ? You have not had a bone density screening for osteoporosis and you are: ? A woman who is age 65 or older. ? A man who is age 70 or older. ? You are a postmenopausal woman who has not had a bone density screening for osteoporosis. ? You are older than age 50 and you want to know if you should have bone density screening for osteoporosis. Summary ? Osteopenia is a loss of thickness (density) inside the bones. Another name for osteopenia is low bone mass. ? Osteopenia is not a disease, but it may inc (more content not included)... [facility] Physician Orderon 09-15-2023 Physician Order [id number]#[id number] [facility] AFB SMEARon 09-11-2023 ACID FAST CULTURE Negative Normal [facility] Comment on above: Result Comment: No a rajesh fast bacilli isolated after 6 weeks. PERFORMED AT [facility] Performed By: #### U [facility] #### Testing performed at [address] [address] Dexa Scanson 09-09-2023 Dexa Scans [id number]#[id number] [facility] Physician Orderon 09-03-2023 Physician Order [id number]#[id number] Shanthi Folres [facility] Ambulatory Visit Summaryon 0 08-27-2023 Ambulatory Visit Summary LILO REYES :1955 Visit Date:08/27/2023 Ambulatory Visit Instructions Your Diagnosis Screen for colon cancer Your Care Team Attending Physician - Noris Solomon CNP Primary Care Physician - Jaci Tee This Is Your Medications List Contact prescribing physician if questions or concerns acetaminophen (Tylenol 325 mg oral capsule) alendronate (Fosamax 70 mg Tab) aspirin (aspirin 81 mg Oral EC Tab) calcium carbonate (calcium (as carbonate) 600 mg oral tablet) celecoxib (celecoxib 200 mg Cap) cranberry cyclobenzaprine (cyclobenzaprine 10 mg Tab) docusate estradiol magnesium oxide (magnesium oxide 400 mg Tab) melatonin metoprolol (Lopressor 25 mg oral tablet) potassium chloride (potassium chloride 99 mg oral tablet) Procedures Performed Injection of nerve root of lumbar spine using fluoroscopic guidance (06/30/2023), Injection of sacroiliac joint using fluoroscopic guidance [...] Appendectomy (1983), Cholecystectomy (1983), History of tonsillectomy (1957), Colonoscopy. Discharge Vitals Temperature (Temporal Artery) 36 ?C Heart Rate (Peripheral) 61 Blood Pressure 114/59 Height 160 cm Height 63 in Weight 90.7 kg Weight 199.54 lb BMI 35.43 What to do next Scheduled Follow-Up Appointments Wednesday 9:30 AM EST Where: [facility] You Need to Schedule the Following Appointments Follow Up with Noris Solomon CNP When: Within 1 to 2 weeks Comments: Following colonoscopy. Where: Medications What How Much When Instructions Unchanged acetaminophen (Tylenol 325 mg oral capsule) 2 Capsules By Mouth Every 4 hours as needed for as needed for pain Contact prescribing physician if questions or concerns Unchanged alendronate (Fosamax 70 mg Tab) 1 Tablets By Mouth Every 7 days Contact prescribing physician if questions or concerns Unchanged aspirin (aspirin 81 mg Oral EC Tab) 1 Tablets By Mouth Every day Contact prescribing physician if questions or concerns Unchanged calcium carbonate (calcium (as carbonate) 600 mg oral tablet) 2 Tablets By Mouth Every day Contact prescribing physician if questions or concerns Unchanged celecoxib (celecoxib 200 mg Cap) 1 Capsules By Mouth 2 times a day Contact prescribing physician if questions or concerns Unchanged cranberry See instructions 500 mg daily Contact prescribing physician if questions or concerns Unchanged cyclobenzaprine (cyclobenzaprine 10 mg Tab) 1 Tablets By Mouth 3 times a day as needed for for spasm Contact prescribing physician if questions or concerns Unchanged docusate See instructions twice daily Contact prescribing physician if questions or concerns Unchanged estradiol See instructions once weekly Contact prescribing physician if questions or concerns Unchanged magnesium oxide (magnesium oxide 400 mg Tab) See instructions once daily Contact prescribing physician if questions or concerns Unchanged melatonin See instructions nightly Contact prescribing physician if questions or concerns Unchanged metoprolol (Lopressor 25 mg oral tablet) 0.5 Tablets By Mouth 2 times a day TAKE 1/ 2 TABLET BY MOUTH TWICE DAILY Contact prescribing physician if questions or concerns Unchanged potassium chloride (potassium chloride 99 mg oral tablet) 1 Tablets By Mouth Every day Contact prescribing physician if questions or concerns Allergies amoxicillin (Edema of face) Problems Ongoing - Any problem that you are currently receiving treatment for. BMI 34.0-34.9,adult Elevated WBC count Encounter for preoperative examination for general surgical procedure H/O gastroesophageal reflux (GERD) H/O: osteoarthritis HTN (hypertension) Left upper quadrant pain Lower back pain Menopausal state Muscle spasm Rib pain on left side Sacroiliitis Screen for colon cancer Watery stools Patient Survey You may receive a survey via text or e-mail asking about your office visit. Please share your experience with us by completing your survey. We appreciate your feedback and thank you for choosing us for your care. Education Materials Colonoscopy, Adult A colonoscopy is a procedure to look at the entire large intestine. This procedure is done using a long, thin, flexible tube that has a camera on the end. You may have a colonoscopy: ? As a part of normal colorectal screening. ? If you have certain symptoms, such as: ? A low number of red blood cells in your blood (anemia). ? Diarrhea that does not (more content not included)... [facility] Consent for Procedure/Surger yon 08-27-2023 Consent for Procedure/Surgery [id number]#[id number] [facility] Gastroenterology Office/Clin ic Noteon 08-27-2023 Gastroenterology Office/Clinic Note Chief Complaint Colonoscopy HPI Staff This is a 68 year old female who presents for a screening colonoscopy. History of Present Illness Patient is a 68-year-old female who presents for colonoscopy. No record of previous colonoscopy available to review during today's encounter. PMH of HTN- managed by patient's PCP. Presents with her today. Family history of colon cancer: Denies. Family history of colon polyps: Denies. Personal history of colon cancer: Denies. Personal history of colon polyps: Denies. Takes aspirin daily. During today's visit, patient reports she had previous colonoscopy about 5 years ago at outside facility in [place], [place]- patient reports colonoscopy was normal however, reports she was recommended to have repeat colonoscopy in 5 years from previous. Reports hx. C. diff. in 2018. Is having 1 formed BM daily. Takes stool softener daily. Rare occasions of diarrhea. Denies black/bloody stools, nausea/vomiting, fevers/chills, and denies having other GI complaints. Review of Systems PHQ Score Initial Depression Screen Score: 0 SCORE ROS - Provider Constitutional: no fever, no chills. Skin: no Jaundice. ENMT: Denies dysphagia and heartburn. Respiratory: no shortness of breath. Cardiovascular: no chest pain. Gastrointestinal: no nausea, no vomiting, no diarrhea, no GI bleeding. Physical Exam Vitals & Measurements T: 36 ?C(Temporal Artery) HR: 61(Peripheral) BP: 114/59 HT: 63 in HT: 160 cm WT: 90.7 kg WT: 199.54 lb BMI: 35.43 General: Well developed, well nourished, in no acute distress Head: Normocephalic/atraumatic Lungs: Normal respiratory effort and clear to auscultation Cardio: Regular rate and rhythm, normal S1 and S2, no murmur, no rub Abdomen: Soft, non-distended, non-tender. Normoactive bowel sounds present in all 4 abdominal quadrants, bilaterally. Mental Status: Alert and oriented x3. Normal mood and affect Assessment/Plan 1. Screen for colon cancer (Z12.11: Encounter for screening for malignant neoplasm of colon) Reportedly had previous colonoscopy about 5 years ago at outside facility in [place], [place]- patient reports colonoscopy was normal however, reports she was recommended to have repeat colonoscopy in 5 years from previous- will request record regarding. Ordered Colonoscopy. Takes aspirin daily. Ordered: Colonoscopy (Hospital Procedure) Educated regarding miralax colon prep. Follow-up With When Contact Information Noris Solomon CNP Within 1 to 2 weeks Additional Instructions: Following colonoscopy. Patient Education Colonoscopy, Adult Problem List/Past Medical History Ongoing BMI 34.0-34.9,adult Elevated WBC count Encounter for preoperative examination for general surgical procedure H/O gastroesophageal reflux (GERD) H/O: osteoarthritis HTN (hypertension) Left upper quadrant pain Lower back pain Menopausal state Muscle spasm Rib pain on left side Sacroiliitis Screen for colon cancer Watery stools Historical No qualifying data Procedure/Surgical History Injection of nerve root of lumbar spine using fluoroscopic guidance (06/30/2023), Injection of sacroiliac joint using fluoroscopic guidance [...] Appendectomy (1983), Cholecystectomy (1983), History of tonsillectomy (1957), Colonoscopy. Medications aspirin 81 mg Oral EC Tab, 81 mg= 1 tab(s), Oral, Daily calcium (as carbonate) 600 mg oral tablet, 1200 mg= 2 tab(s), Oral, Daily celecoxib 200 mg Cap, 200 mg= 1 cap(s), Oral, BID cranberry, See Instructions cyclobenzaprine 10 mg Tab, 10 mg= 1 tab(s), Oral, TID, PRN, Not taking docusate, See Instructions estradiol, See Instructions Fosamax 70 mg Tab, 70 mg= 1 tab(s), Oral, q7day, 3 refills Lopressor 25 mg oral tablet, 12.5 mg= 0.5 tab(s), Oral, BID, 1 refills magnesium oxide 400 mg Tab, See Instructions [...] Smokeless Tobacco Use:. Household tobacco concerns: No., 08/27/2023 Never (less than 100 in lifetime) Tobacco Use:. Never Smokeless Tobacco Use:. Household tobacco concerns (more content not included)... [facility] Comment on above: Result Comment: Elec tronically Signed By: Noris Solomon CNP\.lyndsey\Date and Time Signed: 08/27/23 08:58 EST *RFLX-FUNGUSon 08-25-2023 RESULT 1 Comment [facility] Comment on above: Result Comment: No y east or mold isolated after 4 weeks. PERFORMED AT [facility] Performed By: #### U NEGRA, UMAC #### Testing performed at [address] [address] RESULT 1 Comment [facility] Comment on above: Result Comment: No y east or mold isolated after 4 weeks. PERFORMED AT [facility] Performed By: #### U NEGRA, UMAC #### Testing performed at [address] [address] RESULT 1 Comment [facility] Comment on above: Result Comment: No y east or mold isolated after 4 weeks. PERFORMED AT [facility] Performed By: #### Z JOAQUIN TINEOUNGC #### Testing performed at [facility] [address] [place] [address] [place] [address] FUNGUS CULTUREon 08-25-2023 FUNGUS CULTURE Final report Normal [facility] Comment on above: Result Comment: PERF ORMED AT [facility] Performed By: #### U NEGRA, UMAC #### Testing performed at [address] [address] FUNGUS CULTURE Final report Normal [facility] Comment on above: Result Comment: PERF ORMED AT [facility] Performed By: #### U NEGRA, UMAC #### Testing performed at [address] [address] Performed By: #### Z JOAQUIN TINEOUNGC #### Testing performed at [facility] [address] [place] [address] Family Medicine Office/Clini c Noteon 08-05-2023 Family Medicine Office/Clinic Note HPI Staff Lilo is a 67 year old female presenting for surgical clearnace Pt is having a Total left Knee Revision on 07/27/[address] Garay at [facility] in [place]. Pre testing done 07/01/23 Labs pt told [...] CBC w/ Auto Diff Lab Specimen Collect [id number] Urine Dipstick POC 2. Elevated WBC count (D72.829: Elevated white blood cell count, unspecified) CBC drawn in office today. Ordered: CBC w/ Auto Diff Lab Specimen Collect [id number] Urine Dipstick POC 3. BMI 34.0-34.9,adult (Z68.34: [...] zoster vaccine live 02/12/2023 Recorded SARS-CoV-2 (COVID-19) [id number] 02/12/2023 Recorded influenza virus vaccine, inactivated 06/08/2022 Recorded SARS-CoV-2 (COVID-19) [id number] 06/08 (more content not included)... [facility] Comment on above: Result Comment: Elec tronically Signed By: Jaci Tee\.br\Date and Time Signed: 08/05/23 09:19 EST AFB SMEARon 07-28-2023 ACID FAST SMEAR Negative [facility] Comment on above: Result Comment: PERF ORMED AT [facility] Performed By: #### U NEGRA, UMAC #### Testing performed at [address] [place] [address] CBCon 07-27-2023 ABSOLUTE BAS 0.0 10*3/uL Normal 0.0-0.2 [facility] Comment on above: Performed By: #### A CBC RENF #### Testing performed at [address] [place] [address] ABSOLUTE EOS 0.0 10*3/uL Normal 0.0-0.7 [facility] Comment on above: Performed By: #### A CBC RENF #### Testing performed at [address] [place] [address] ABSOLUTE NEUTROPHIL COUNT 10.0 10*3/uL High 1.4-6.5 [facility] Comment on above: Performed By: #### A CBC RENF #### Testing performed at [address] [place] [address] Basophils/100 WBC (Bld) 0.1 % Normal 0.0-2.0 [facility] Comment on above: Performed By: #### A CBC RENF #### Testing performed at [address] [place] [address] DTYPE AUTO DIFF Normal [facility] Comment on above: Performed By: #### A CBC RENF #### Testing performed at [address] [place] [address] Eosinophils/100 WBC (Bld) 0.0 % Normal 0.0-11.0 [facility] Comment on above: Performed By: #### A CBC RENF #### Testing performed at [address] [place] [address] Lymphocytes (Bld) [#/Vol] 0.9 10*3/uL Low 1.2-3.4 [facility] Comment on above: Performed By: #### A CBC RENF #### Testing performed at [address] [place] [address] Lymphocytes/100 WBC (Bld) 7.9 % Low 20.0-55.0 [facility] Comment on above: Performed By: #### A CBC RENF #### Testing performed at [address] [place] [address] Monocytes (Bld) [#/Vol] 0.4 10*3/uL Normal 0.0-0.7 [facility] Comment on above: Performed By: #### A CBCRADHAF #### Testing performed at [address] [address] Monocytes/100 WBC (Bld) 3.7 % Normal 0.0-10.0 [facility] Comment on above: Performed By: #### A CBCRADHAF #### Testing performed at [address] [address] Neutrophils/100 WBC (Bld) 88.3 % High 37.0-75.0 [facility] Comment on above: Performed By: #### A CBCRADHAF #### Testing performed at [address] [place] [address] Erythrocyte distribution width (RBC) [Ratio] 15.2 % High 11.5-14.5 [facility] Comment on above: Performed By: #### A CBCRADHAF #### Testing performed at [address] [place] [address] Hematocrit (Bld) [Volume fraction] 34.0 % Low 36.0-48.0 [facility] Comment on above: Performed By: #### A CBCRADHAF #### Testing performed at [address] [place] [address] Hemoglobin (Bld) [Mass/Vol] 10.6 g/dL Low 12.0-16.0 [facility] Comment on above: Performed By: #### A CBC, RENF #### Testing performed at [address] [place] [address] MCH (RBC) [Entitic mass] 26.0 pg Normal 26.0-35.0 [facility] Comment on above: Performed By: #### A CBC, RENF #### Testing performed at [address] [place] [address] MCHC (RBC) [Mass/Vol] 31.2 g/dL Normal 27.0-37.0 [facility] Comment on above: Performed By: #### A CBC, RENF #### Testing performed at [address] [place] [address] MCV (RBC) [Entitic vol] 83.2 fL Normal 80.0-100.0 [facility] Comment on above: Performed By: #### A CBCJARROD #### Testing performed at [address] [place] [address] Platelet mean volume (Bld) [Entitic vol] 9.6 fL Normal 7.4-11.0 [facility] Comment on above: Performed By: #### A CBCJARROD #### Testing performed at [address] [address] Platelets (Bld) [#/Vol] 177 10*3/uL Normal 130-400 [facility] Comment on above: Performed By: #### A CBCJARROD #### Testing performed at [address] [address] RBC (Bld) [#/Vol] 4.08 10*6/uL Normal 4.0-5.4 [facility] Comment on above: Performed By: #### A CBCJARROD #### Testing performed at [address] [address] WBC (Bld) [#/Vol] 11.3 10*3/uL High 3.6-11.0 [facility] Comment on above: Performed By: #### A CBCJARROD #### Testing performed at [address] [address] CBC, EDIF, PLATELETon 2022 ABSOLUTE BASOPHIL COUNT 0.0 10*3/uL 0.0 - 0.2 10*3/uL [facility] Basophils/100 WBC (Bld) 0.1 % 0.0 - 2.0 % [facility] Differential cell count method Nom (Bld) AUTO DIFF % [facility] Eosinophils (Bld) [#/Vol] 0.0 10*3/uL 0.0 - 0.7 10*3/uL [facility] Eosinophils/100 WBC (Bld) 0.0 % 0.0 - 11.0 % [facility] Erythrocyte distribution width (RBC) [Ratio] 15.2 % High 11.5 - 14.5 % [facility] Hematocrit (Bld) [Volume fraction] 34.0 % Low 36.0 - 48.0 % [facility] Hemoglobin (Bld) [Mass/Vol] 10.6 g/dL Low [facility] Interpretation and review of laboratory results Abnormal [facility] Lymphocytes (Bld) [#/Vol] 0.9 10*3/uL Low 1.2 - 3.4 10*3/uL [facility] Lymphocytes/100 WBC (Bld) 7.9 % Low 20.0 - 55.0 % [facility] MCH (RBC) [Entitic mass] 26.0 pg 26.0 - 35.0 PG [facility] MCHC (RBC) [Mass/Vol] 31.2 g/dL [facility] MCV (RBC) [Entitic vol] 83.2 fL [facility] Monocytes (Bld) [#/Vol] 0.4 10*3/uL 0.0 - 0.7 10*3/uL [facility] Monocytes/100 WBC (Bld) 3.7 % 0.0 - 10.0 % [facility] Neutrophils (Bld) [#/Vol] 10.0 10*3/uL High 1.4 - 6.5 10*3/uL [facility] Neutrophils/100 WBC (Bld) 88.3 % High 37.0 - 75.0 % [facility] Platelet mean volume (Bld) [Entitic vol] 9.6 fL [facility] Platelets (Bld) [#/Vol] 177 10*3/uL 130 - 400 10*3/uL [facility] RBC (Bld) [#/Vol] 4.08 10*6/uL 4.0 - 5.4 10*6/uL [facility] WBC (Bld) [#/Vol] 11.3 10*3/uL High 3.6 - 11.0 10*3/uL [facility] RENAL FUNCTION PANELon 07-27 Albumin [Mass/Vol] 3.5 G/dl 3.5 - 5.0 G/dl [facility] Calcium [Mass/Vol] 8.6 mg/dL [facility] Chloride [Moles/Vol] 109 mmol/L High [facility] Comment on above: Please note: Triglyc eride levels of 600mg/dL or higher may positively bias chloride results by approximately 2.1 mmol CO2 [Moles/Vol] 23 mmol/L [facility] Creatinine [Mass/Vol] 0.60 mg/dL Low Community [facility] G[facility] COMMENT Average GFR for 70+ years old = 75. [facility] Comment on above: Chronic Kidney disea se, GFR = <60. Kidney failure, GFR = <15. The GFR estimate is not adjusted for extreme body surface area or acute process, nor has it been validated for women or ethnic groups other than and . GFR/1.73 sq M.predicted among blacks MDRD (S/P/Bld) [Vol rate/Area] 127 mL/min/{1.73_m2} ml/min/1.7 3sq.m [facility] GFR/1.73 sq M.predicted among non-blacks MDRD (S/P/Bld) [Vol rate/Area] 105 mL/min/{1.73_m2} ml/min/1.7 3sq.m [facility] Glucose post fast [Mass/Vol] 124 mg/dL High [facility] Comment on above: NORMAL <100 mg/dL PREDIABETES 101-126 mg/dL DIABETES 126 mg/dL or higher Interpretation and review of laboratory results Abnormal [facility] Phosphate [Mass/Vol] 4.0 mg/dL [facility] Potassium [Moles/Vol] 4.6 mmol/L [facility] Sodium [Moles/Vol] 138 mmol/L [facility] Urea nitrogen [Mass/Vol] 17 mg/dL [facility] RENAL PANEL,FASTINGon 2022 ALBUMIN 3.5 G/dl Normal 3.5-5.0 [facility] Comment on above: Performed By: #### A CBC, RENF #### Testing performed at [address] [address] Calcium [Mass/Vol] 8.6 mg/dL Normal 8.4-10.2 [facility] Comment on above: Performed By: #### A CBC, RENF #### Testing performed at [address] [address] Chloride [Moles/Vol] 109 mmol/L High 98-107 [facility] Comment on above: Result Comment: Drew cantu note: Triglyceride levels of 600mg/dL or higher may positively bias chloride results by approximately 2.1 mmol Performed By: #### A CBC RENF #### [place] [address] CO2 [Moles/Vol] 23 mmol/L Normal 22-30 [facility] Comment on above: Performed By: #### A CBC, RENF #### Testing performed at [place] [id number] Creatinine [Mass/Vol] 0.60 mg/dL Low 0.70-1.20 [facility] Comment on above: Performed By: #### A CBC RENF #### Testing performed at [place] [id number] EST. GFR, 127 ml/min/1.73sq.m [facility] Comment on above: Performed By: #### A CBC, RENF #### Testing performed at [place] [id number] EST. GFR,Non 105 ml/min/1.73sq.m [facility] Comment on above: Performed By: #### A CBC RENF #### [place] [address] GFR Information Average GFR for 70+ years old = 75. Normal [facility] Comment on above: Result Comment: [employer] [place]ina Kidney disease, GFR = <60. Kidney failure, GFR = <15. The GFR estimate is not adjusted for extreme body surface area or acute process, nor has it been validated for women or ethnic groups other than and . Performed By: #### A CBC, RENF #### Testing performed at [place] [id number] Glucose [Mass/Vol] 124 mg/dL High 70-100 [facility] Comment on above: Result Comment: NORMAL <100 mg/dL PREDIABETES 101-126 mg/dL DIABETES 126 mg/dL or higher Performed By: #### A CBC, RENF #### Testing performed at [place] [id number] PHOSPHOROUS 4.0 MG/DL Normal 2.5-4.5 [facility] Comment on above: Performed By: #### A CBC, RENF #### Testing performed at [address] [address] Potassium [Moles/Vol] 4.6 mmol/L Normal 3.5-5.1 [facility] Comment on above: Performed By: #### A CBC, RENF #### Testing performed at [address] [address] Sodium [Moles/Vol] 138 mmol/L Normal 137-145 [facility] Comment on above: Performed By: #### A CBC, RENF #### Testing performed at [address] [address] Urea nitrogen [Mass/Vol] 17 mg/dL Normal 7-20 [facility] Comment on above: Performed By: #### A CBC, RENF #### Testing performed at [address] [address] ANAEROBIC CULTUREon 07-26-20 ANAEROBIC CULTURE SPECIMEN DESCRIPTION LEFT KNEE SPECIAL REQUESTS TIBIAL CANAL CULTURE NO GROWTH 5 DAYS * Result Note: Testing performed at [place] [address] * REPORT STATUS 07/31/2023 * Result Note: FINAL * Normal [facility] Comment on above: Performed By: #### U NEGRA, UMAC #### Testing performed at [address] [address] ANAEROBIC CULTURE SPECIMEN DESCRIPTION LEFT KNEE SPECIAL REQUESTS MEDIAL SYNOVIUM CULTURE NO GROWTH 5 DAYS * Result Note: Testing performed at [place] [address] * REPORT STATUS 07/31/2023 * Result Note: FINAL * Normal [facility] Comment on above: Performed By: #### U NEGRA, UMAC #### Testing performed at [address] [address] ANAEROBIC CULTURE SPECIMEN DESCRIPTION LEFT KNEE SPECIAL REQUESTS L. KNEE INCISON CULTURE NO GROWTH 5 DAYS * Result Note: Testing performed at [place] [address] * REPORT STATUS 07/31/2023 * Result Note: FINAL * Normal [facility] Comment on above: Performed By: #### A NER #### Testing performed at [address] [address] Testing performed at [facility] [address] [place] [address] GLUCOSE (POC DEVICE)on 07-26 GLUCOSE, POINT OF CARE 85 [facility] Operator [id number] [facility] MRSA SCREENon 07-26-2023 MRSA DNA YANN+probe Ql (Unsp spec) Negative Normal NEGATIVE [facility] Comment on above: Performed By: #### U NEGRA, UMAC #### Testing performed at [address] [address] STAPH AUREUS SCREEN Negative Normal NEGATIVE [facility] Comment on above: Result Comment: TEST ING PERFORMED BY PCR Performed By: #### U NEGRA, UMAC #### Testing performed at [address] [address] POCT GLUCOSEon 07-26-2023 Glucose [Mass/Vol] 85 mg/dL Normal 70-100 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 REPEAT ABO/RHon 07-26-2023 REPEAT ABO/RH Positive Normal [facility] Comment on above: Performed By: #### U NEGRA, UMAC #### Testing performed at [address] [address] REPEAT ABO/RH (D) TYPINGon 1 09-26-2022 ABO and Rh group Nom (Bld ) Positive [facility] SCREEN: MRSA ONLY, NARES (IS OLATION SCREEN)on 07-26-2023 MRSA isol Org specific cx Ql (Nose) Negative NEGATIVE [facility] STAPHYOCOCCUS AUREUS BY PCR Negative NEGATIVE [facility] Comment on above: TESTING PERFORMED BY PCR [facility] TYPE AND SCREEN CROSSMATCH C ONVERTIBLEon 07-26-2023 TYPE AND SCREEN CROSSMATCH CONVERTIBLE UNITS ORDERED 2 WORKUP EXPIRES 07/29/2023,2359 ABO/RH(D) A POSITIVE ANTIBODY SCREEN NEGATIVE ARM BAND NUMBER [id number] UNIT NUMBER [id number] BLOOD COMPONENT TYPE LRBC PART 2 UNIT DIVISION 00 STATUS OF UNIT REL FROM ALLOC TRANSFUSION STATUS PENDING CROSSMATCH RESULT PENDING UNIT NUMBER [id number] BLOOD COMPONENT TYPE LEUKORED RBC UNIT DIVISION 00 STATUS OF UNIT REL FROM ALLOC TRANSFUSION STATUS PENDING CROSSMATCH RESULT PENDING Normal [facility] Comment on above: Performed By: #### U NEGRA, UMAC #### Testing performed at [address] [address] WOUND CULTUREon 07-26-2023 WOUND CULTURE SPECIMEN DESCRIPTION LEFT KNEE SPECIAL REQUESTS TIBIAL CANAL GRAM SMEAR FEW * Result Note: WBC'S SEEN * * Result Note: NO ORGANISMS SEEN * CULTURE NO GROWTH 5 DAYS * Result Note: Testing performed at [place] [address] * REPORT STATUS 07/31/2023 * Result Note: FINAL * Normal [facility] Comment on above: Performed By: #### U NEGRA, UMAC #### Testing performed at [address] [address] WOUND CULTURE SPECIMEN DESCRIPTION LEFT KNEE SPECIAL REQUESTS MEDIAL SYNOVIUM GRAM SMEAR FEW * Result Note: WBC'S SEEN * * Result Note: NO ORGANISMS SEEN * CULTURE NO GROWTH 5 DAYS * Result Note: Testing performed at [place] [address] * REPORT STATUS 07/31/2023 * Result Note: FINAL * Normal [facility] Comment on above: Performed By: #### U NEGRA, UMAC #### Testing performed at [address] [address] WOUND CULTURE SPECIMEN DESCRIPTION LEFT KNEE SPECIAL REQUESTS L. KNEE INCISION GRAM SMEAR FEW * Result Note: WBC'S SEEN * * Result Note: NO ORGANISMS SEEN * CULTURE NO GROWTH 5 DAYS * Result Note: Testing performed at [place] [address] * REPORT STATUS 07/31/2023 * Result Note: FINAL * Normal [facility] Comment on above: Performed By: #### U NEGRA, UMAC #### Testing performed at [address] [address] XR KNEE LEFT 1-2 VIEWSon XR KNEE [...] complication and expected immediate postsurgical appearance. Normal [facility] XR Knee - left 2 Viewson IMPRESSION: [...] hardware complication and expected immediate postsurgical appearance. [facility] Radiology Study observation (narrative) [facility] XR Knee - left 2 ViewsOrdere d By: Patricio Krishnamurthy on 07-26-2023 [facility] Work Phone: Consent for Treatmenton Consent for Treatment [id number]#1.00TIFF Normal [facility] Consultation Noteon 07-23-20 Consultation Note Patient: [...] is having her replacement revision done on Wednesday. Health Status Allergies: Allergic Reactions (Selected) Severity Not Documented Amoxicillin- Edema of face., Allergies (1) Active Reaction amoxicillin Edema of face Current medications: (Selected) Prescriptions Prescribed cyclobenzaprine 10 mg Tab: 10 mg = 1 tab(s), Oral, TID, PRN for spasm, # 30 tab(s), Refills(s) 0, Pharmacy: [facility]/pharmacy #[id number], 160, cm, 06/22/23 9:45:00 EST, Height/Length Dosing, [...] All Problems HTN (hypertension) / SNOMED CT 0065300637 / Confirmed H/O gastroesophageal reflux (GERD) / SNOMED CT 1397996488 / Confirmed H/O: osteoarthritis / SNOMED CT 492683942 / Confirmed Lower back pain / SNOMED CT 525862724 / Confirmed Rib pain on left side / SNOMED CT 194308159 / Confirmed Muscle spasm / SNOMED CT 37628065 / Confirmed Sacroiliitis / SNOMED CT 69531674 / Confirmed Left upper quadrant pain / SNOMED CT 934611860 / Confirmed Watery stools / SNOMED CT 0673107252 / Confirmed Encounter for preoperative examination for general surgical procedure / SNOMED CT 099635154 / Confirmed Elevated WBC count / SNOMED CT 816908100 / Confirmed BMI 34.0-34.9,adult / SNOMED CT 453231385 / Confirmed Objective Vital Signs 07/23/2023 8:52 [...] to left knee pain Integumentary: Warm, Dry, [place]. Neurologic: Alert, Oriented. Psychiatric: Cooperative, Appropriate mood [...] needed OARRS reviewed ANN score: 54% [facility] Comment on above: Result Comment: Elec tronically Signed By: Louise Owusu PA-C\.br\Date and Time Signed: 07/23/23 09:12 EST\.br\Electronically Co-Signed By: Juwan Mendez DO\.br\Date and Time Co-Signed: 07/29/23 21:42 EST Office/Clinic Note-Physician on 07-23-2023 Office/Clinic Note-Physician [id number]#1.00TIFF Normal [facility] Outside Diabetes Eye Examon 07-23-2023 Outside Diabetes Eye Exam [id number]#1.00TIFF Normal [facility] Patient Correspondenceon Patient Correspondence [id number]#1.00TIFF Normal [facility] Patient Correspondence [id number]#1.00TIFF Normal [facility] Patient History Officeon Patient History Office [id number]#1.00TIFF Normal [facility] Outside Records Officeon Outside Records Office [id number]#1.00TIFF Normal [facility] Patient Correspondenceon Patient Correspondence [id number]#1.00TIFF Normal [facility] Provider Letteron 07-13-2023 Provider Letter (Inserted Image. Fernanda ble to display) [address] [place] [id number] July 13, 2023 LILO REYES [address] [place] [address] : [address]Scott Garay The above [...] remains up to the surgeon/anesthesiologist. Thank you, JASEN Reagan [facility] Ambulatory Visit Summaryon 1 09-11-2022 Ambulatory Visit Summary ERIC LILO M :1955 Visit Date:07/12/2023 Ambulatory Visit Instructions Your [...] preoperative examination for general surgical procedure Normal [facility] Auto Diffon 07-12-2023 Basophils/100 WBC (Bld) 0.8 % Normal 0.0-2.0 [facility] Comment on above: Order Comment: Order Added by Discern Expert. Performed By: #### 2 [id number], [id number] #### [facility] [address] [place] [address] Basophils/Leukocyt es Auto (Bld) [Pure # fraction] 0.0 E9/L Normal 0.0-0.2 [facility] Comment on above: Order Comment: Order Added by Discern Expert. Performed By: #### 2 776549, [id number] #### [facility] [address] [place] [address] Eosinophils/100 WBC (Bld) 2.7 % Normal 0.0-8.0 [facility] Comment on above: Order Comment: Order Added by Discern Expert. Performed By: #### 2 324692, [id number] #### [facility] [address] [place] [address] Eosinophils/Leukoc ytes Auto (Bld) [Pure # fraction] 0.2 E9/L Normal 0.0-0.5 [facility] Comment on above: Order Comment: Order Added by Discern Expert. Performed By: #### 2 918295, [id number] #### [facility] [address] [place] [address] Lymphocytes/100 WBC (Bld) 32.1 % Normal 14.0-50.0 [facility] Comment on above: Order Comment: Order Added by Discern Expert. Performed By: #### 2 292606, 8448941 #### [facility] [address] [place] [address] Lymphocytes/Leukoc ytes Auto (Bld) [Pure # fraction] 1.8 E9/L Normal 1.0-4.0 [facility] Comment on above: Order Comment: Order Added by Discern Expert. Performed By: #### 2 646391, 9598006 #### [facility] [address] [place] [address] Monocytes/100 WBC (Bld) 6.0 % Normal 4.0-14.0 [facility] Comment on above: Order Comment: Order Added by Discern Expert. Performed By: #### 2 441030, 6990968 #### [facility] [address] [place] [address] Monocytes/Leukocyt es Auto (Bld) [Pure # fraction] 0.3 E9/L Normal 0.2-1.0 [facility] Comment on above: Order Comment: Order Added by Discern Expert. Performed By: #### 2 424746, 5647088 #### [facility] [address] [place] [address] Neutrophils/100 WBC (Bld) 58.4 % Normal 36.0-75.0 [facility] Comment on above: Order Comment: Order Added by Discern Expert. Performed By: #### 2 520453, 4482496 #### [facility] [address] [place] [address] Neutrophils/Leukoc ytes Auto (Bld) [Pure # fraction] 3.3 E9/L Normal 2.0-7.5 [facility] Comment on above: Order Comment: Order Added by Discern Expert. Performed By: #### 2 525277, [id number] #### [facility] [address] [place] [address] CBC w/ Auto Diffon 3 Erythrocyte distribution width (RBC) [Ratio] 15.3 % High 10.9-14.2 [facility] Comment on above: Performed By: #### 2 991906, 9446596 #### [facility] [address] [place] [address] Hematocrit (Bld) [Volume fraction] 39.2 % Normal 34.0-46.0 [facility] Comment on above: Performed By: #### 2 064724, 8204991 #### [facility] [address] [place] [address] Hemoglobin (Bld) [Mass/Vol] 12.9 g/dL Normal 12.0-16.0 [facility] Comment on above: Performed By: #### 2 611670, 2083437 #### [facility] [address] [place] [address] MCH (RBC) [Entitic mass] 26.7 pg Low 27.0-34.0 [facility] Comment on above: Performed By: #### 2 376669, 5582356 #### [facility] [address] [place] [address] MCHC (RBC) [Mass/Vol] 32.8 g/dL Normal 31.4-36.0 [facility] Comment on above: Performed By: #### 2 958666, 4118477 #### [facility] [address] [place] [address] MCV (RBC) [Entitic vol] 81.3 fL Normal 80.0-100.0 [facility] Comment on above: Performed By: #### 2 544900, 8105203 #### [facility] [address] [place] [address] Platelet mean volume (Bld) [Entitic vol] 10.0 fL Normal 6.4-10.8 [facility] Comment on above: Performed By: #### 2 022238, 4559627 #### [facility] [address] [place] [address] Platelets (Bld) [#/Vol] 174.0 E9/L Normal 150.0-500. 0 [facility] Comment on above: Performed By: #### 2 547627, 1949350 #### [facility] [address] [place] [address] RBC (Bld) [#/Vol] 4.8 E12/L Normal 4.3-5.9 [facility] Comment on above: Performed By: #### 2 855215, 9534267 #### [facility] [address] [place] [address] WBC corrected for nucl RBC Auto (Bld) [#/Vol] 5.7 E9/L Normal 4.0-11.0 [facility] Comment on above: Result Comment: Mary e reviewed by JS. Performed By: #### 2 686466, [id number] #### [facility] [address] [place] [address] HEMATOLOGYOrdered By: SYSTEM SYSTEM on 07-12-2023 Basophils/100 [...] 4.8 E12/L Normal 4.3 - 5.9 E12/L [facility] HemeAutoSS WBC corrected for nucl RBC Auto (Bld) [#/Vol] 5.7 E9/L Normal 4.0 - 11.0 E9/L [facility] Comment on above: Result Comment: Mary jo reviewed by [employer] 07-07-2023 Forms [id number]#1.00TIFF Normal [facility] CBCon 07-01-2023 ABSOLUTE BAS 0.0 10*3/uL Normal 0.0-0.2 [facility] Comment on above: Performed By: #### U NEGRA, UMAC #### Testing performed at [address] [address] ABSOLUTE EOS 0.0 10*3/uL Normal 0.0-0.7 [facility] Comment on above: Performed By: #### U NEGRA, UMAC #### Testing performed at [address] [address] ABSOLUTE NEUTROPHIL COUNT 9.1 10*3/uL High 1.4-6.5 [facility] Comment on above: Performed By: #### U NEGRA, UMAC #### Testing performed at [address] [address] Basophils/100 WBC (Bld) 0.2 % Normal 0.0-2.0 [facility] Comment on above: Performed By: #### U NEGRA, UMAC #### Testing performed at [address] [address] DTYPE AUTO [address]FF Normal [facility] Comment on above: Performed By: #### U NEGRA, UMAC #### Testing performed at [address] [address] Eosinophils/100 WBC (Bld) 0.1 % Normal 0.0-11.0 [facility] Comment on above: Performed By: #### U NEGRA, UMAC #### Testing performed at [address] [address] Lymphocytes (Bld) [#/Vol] 2.2 10*3/uL Normal 1.2-3.4 [facility] Comment on above: Performed By: #### U NEGRA, UMAC #### Testing performed at [address] [address] Lymphocytes/100 WBC (Bld) 18.7 % Low 20.0-55.0 [facility] Comment on above: Performed By: #### U NEGRA, UMAC #### Testing performed at [address] [address] Monocytes (Bld) [#/Vol] 0.5 10*3/uL Normal 0.0-0.7 [facility] Comment on above: Performed By: #### U NEGRA, UMAC #### Testing performed at [address] [address] Monocytes/100 WBC (Bld) 4.4 % Normal 0.0-10.0 [facility] Comment on above: Performed By: #### U NEGRA, UMAC #### Testing performed at [address] [address] Neutrophils/100 WBC (Bld) 76.6 % High 37.0-75.0 [facility] Comment on above: Performed By: #### U NEGRA, UMAC #### Testing performed at [facility] [place] [facility] [address] [place] [address] Erythrocyte distribution width (RBC) [Ratio] 15.1 % High 11.5-14.5 [facility] Comment on above: Performed By: #### U NEGRA, UMAC #### Testing performed at [address] [address] Hematocrit (Bld) [Volume fraction] 40.0 % Normal 36.0-48.0 [facility] Comment on above: Performed By: #### U NEGRA, UMAC #### Testing performed at [address] [address] Hemoglobin (Bld) [Mass/Vol] 12.8 g/dL Normal 12.0-16.0 [facility] Comment on above: Performed By: #### U NEGRA, UMAC #### Testing performed at [address] [address] MCH (RBC) [Entitic mass] 26.5 pg Normal 26.0-35.0 [facility] Comment on above: Performed By: #### U NEGRA, UMAC #### Testing performed at [address] [address] MCHC (RBC) [Mass/Vol] 32.1 g/dL Normal 27.0-37.0 [facility] Comment on above: Performed By: #### U NEGRA, UMAC #### Testing performed at [address] [address] MCV (RBC) [Entitic vol] 82.6 fL Normal 80.0-100.0 [facility] Comment on above: Performed By: #### U NEGRA, UMAC #### Testing performed at [address] [address] Platelet mean volume (Bld) [Entitic vol] 10.7 fL Normal 7.4-11.0 [facility] Comment on above: Performed By: #### U NEGRA, UMAC #### Testing performed at [address] [address] Platelets (Bld) [#/Vol] 163 10*3/uL Normal 130-400 [facility] Comment on above: Performed By: #### U NEGRA, UMAC #### Testing performed at [address] [address] RBC (Bld) [#/Vol] 4.85 10*6/uL Normal 4.0-5.4 [facility] Comment on above: Performed By: #### U NEGRA, UMAC #### Testing performed at [address] [address] WBC (Bld) [#/Vol] 11.8 10*3/uL High 3.6-11.0 [facility] Comment on above: Performed By: #### U NEGRA, UMAC #### Testing performed at [address] [address] CMP FASTINGon 07-01-2023 A:G RATIO 1.[address] [facility] Comment on above: Performed By: #### U NEGRA, UMAC #### Testing performed at [address] [address] ALBUMIN 4.6 G/dl Normal 3.5-5.0 [facility] Comment on above: Performed By: #### U NEGRA, UMAC #### Testing performed at [address] [address] ALP [Catalytic activity/Vol] 55 U/L Normal 38-126 [facility] Comment on above: Performed By: #### U NEGRA, UMAC #### Testing performed at [address] [address] ALT [Catalytic activity/Vol] 25 U/L Normal <35 [facility] Comment on above: Performed By: #### U NEGRA, UMAC #### Testing performed at [address] [address] AST [Catalytic activity/Vol] 29 U/L Normal 14-36 [facility] Comment on above: Performed By: #### U NEGRA, UMAC #### Testing performed at [address] [address] Bilirubin [Mass/Vol] 0.4 mg/dL Normal 0.2-1.3 [facility] Comment on above: Performed By: #### U NEGRA, UMAC #### Testing performed at [address] [address] Calcium [Mass/Vol] 9.9 mg/dL Normal 8.4-10.2 [facility] Comment on above: Performed By: #### U NEGRA, UMAC #### Testing performed at [address] [address] Chloride [Moles/Vol] 105 mmol/L Normal 98-107 [facility] Comment on above: Result Comment: Drew cantu note: Triglyceride levels of 600mg/dL or higher may positively bias chloride results by approximately 2.1 mmol Performed By: #### U NEGRA, UMAC #### Testing performed at [place] [id number] CO2 [Moles/Vol] 26 mmol/L Normal 22-30 [facility] Comment on above: Performed By: #### U NEGRA, UMAC #### Testing performed at [place] [id number] Creatinine [Mass/Vol] 0.60 mg/dL Low 0.70-1.20 [facility] Comment on above: Performed By: #### U NEGRA, UMAC #### Testing performed at [address] [address] EST. GFR, 127 ml/min/1.73sq.m [facility] Comment on above: Performed By: #### U NEGRA, UMAC #### Testing performed at [place] [id number] EST. GFR,Non 105 ml/min/1.73sq.m [facility] Comment on above: Performed By: #### U NEGRA, UMAC #### [place] [address] GFR Information Average GFR for 60-6 9 years old = 85. Normal [facility] Comment on above: Result Comment: [employer] Spr[employer] madina Kidney disease, GFR = <60. Kidney failure, GFR = <15. The GFR estimate is not adjusted for extreme body surface area or acute process, nor has it been validated for women or ethnic groups other than and . Performed By: #### U NEGRA, UMAC #### Testing performed at [place] [id number] Glucose [Mass/Vol] 137 mg/dL High 70-100 [facility] Comment on above: Result Comment: NORMAL <100 mg/dL PREDIABETES 101-126 mg/dL DIABETES 126 mg/dL or higher Performed By: #### U NEGRA, UMAC #### Testing performed at [address] [address] Potassium [Moles/Vol] 4.2 mmol/L Normal 3.5-5.1 [facility] Comment on above: Performed By: #### U NEGRA, UMAC #### Testing performed at [address] [address] Protein [Mass/Vol] 7.3 g/dL Normal 6.3-8.2 [facility] Comment on above: Performed By: #### U NEGRA, UMAC #### Testing performed at [address] [address] Sodium [Moles/Vol] 140 mmol/L Normal 137-145 [facility] Comment on above: Performed By: #### U NEGRA, UMAC #### Testing performed at [address] [address] Urea nitrogen [Mass/Vol] 18 mg/dL Normal 7-20 [facility] Comment on above: Performed By: #### U NEGRA, UMAC #### Testing performed at [address] [address] Consultation Noteon 07-01-20 Consultation Note [id number]#1.00TIFF Normal [facility] HEMOGLOBIN A1Con 07-01-2023 Glucose [Mass/Vol] 117 mg/dL Normal [facility] Comment on above: Performed By: #### H A1CT #### Testing performed at [address] [address] HbA1c (Bld) [Mass fraction] 5.7 % Normal 0-6 [facility] Comment on above: Result Comment: NORMAL <5.7% PREDIABETES 5.7-6.4% DIABETES 6.5% OR HIGHER Performed By: #### H A1CT #### Testing performed at [address] [address] MRSA SCREENon 07-01-2023 MRSA DNA YANN+probe Ql (Unsp spec) Negative Normal NEGATIVE [facility] Comment on above: Performed By: #### M RSAST #### Testing performed at [address] [address] STAPH AUREUS SCREEN Negative Normal NEGATIVE [facility] Comment on above: Result Comment: TEST ING PERFORMED BY PCR Performed By: #### M RSAST #### Testing performed at [address] [address] PROTIMEon 07-01-2023 INR Coag (PPP) [Relative time] 0.97 {INR} Normal 0.85-1.10 [facility] Comment on above: Result Comment: 2.0-3.0 THERAPEUTIC RANGE 2.5-3.5 MECHANICAL VALVE RANGE Performed By: #### U NEGRA, UMAC #### Testing performed at [address] [address] PT Coag (PPP) [Time] 13.0 s Normal 11.8-14.4 [facility] Comment on above: Performed By: #### U NEGRA, UMAC #### Testing performed at [address] [address] URINE MACROSCOPICon 07-01-20 Bilirubin Ql (U) SMALL Abnormal NEGATIVE [facility] Comment on above: Performed By: #### U NEGRA, UMAC #### Testing performed at [address] [place] [address] Clarity (U) CLEAR Normal CLEAR [facility] Comment on above: Performed By: #### U NEGRA, UMAC #### Testing performed at [address] [place] [address] Color (U) YELLOW Normal YELLOW [facility] Comment on above: Performed By: #### U NEGRA, UMAC #### Testing performed at [address] [place] [address] Glucose Ql (U) Negative Normal NEGATIVE [facility] Comment on above: Performed By: #### U NEGRA, UMAC #### Testing performed at [address] [address] pH (U) 5.5 [pH] Normal 5.0-7.0 [facility] Comment on above: Performed By: #### U NEGRA, UMAC #### Testing performed at [address] [address] URINE HEMOGLOBIN Negative Normal NEGATIVE [facility] Comment on above: Performed By: #### U NEGRA, UMAC #### Testing performed at [address] [address] URINE KETONE Negative Normal NEGATIVE [facility] Comment on above: Performed By: #### U NEGRA, UMAC #### Testing performed at [address] [address] URINE LEUKOTEST Negative Normal NEGATIVE [facility] Comment on above: Performed By: #### U NEGRA, UMAC #### Testing performed at [address] [address] URINE NITRATES Negative Normal NEGATIVE [facility] Comment on above: Performed By: #### U NEGRA, UMAC #### Testing performed at [address] [address] URINE SPEC GRAVITY >1.030 High 1.010-1.[address] [facility] Comment on above: Performed By: #### U NEGRA, UMAC #### Testing performed at [address] [address] URINE TOTAL PROTEIN TRACE Abnormal NEGATIVE [facility] Comment on above: Performed By: #### U NEGRA, UMAC #### Testing performed at [address] [address] Urobilinogen Qn (U) 0.2 {Duong'U}/dL Normal 0.2-1.0 [facility] Comment on above: Performed By: #### U NEGRA, UMAC #### Testing performed at [address] [address] URINE MICROSCOPICon 07-01-20 23 BACTERIA 1+ Abnormal NEGATIVE [facility] Comment on above: Performed By: #### U NEGRA, UMAC #### [place] [address] CASTS OCCASIONAL Abnormal NONE [facility] Comment on above: Result Comment: HYAL INE COARSELY GRANULAR Performed By: #### U NEGRA, UMAC #### Testing performed at [address] [address] CRYSTAL NONE Normal [facility] Comment on above: Performed By: #### U NEGRA, UMAC #### Testing performed at [address] [address] Epithelial cells LM Ql (Urine sed) [address] [facility] Comment on above: Performed By: #### U NEGRA, UMAC #### Testing performed at [address] [address] Mucus Ql (Urine sed) Negative Normal NEGATIVE [facility] Comment on above: Performed By: #### U NEGRA, UMAC #### Testing performed at [address] [address] URINE COMMENT POSSIBLY CONTAMINATE D SPECIMEN, CULTURE MUST BE ORDERED SEPARATELY IF DEEMED NECESSARY. Normal [facility] Comment on above: Performed By: #### U NEGRA, UMAC #### Testing performed at [address] [address] URINE RBC'S Negative Normal NEGATIVE [facility] Comment on above: Performed By: #### U NEGRA, UMAC #### Testing performed at [address] [address] URINE WBC'S 1 TO [address] [facility] Comment on above: Performed By: #### U NEGRA, UMAC #### Testing performed at [address] [address] Consent for Procedure/Surger yon 06-30-2023 Consent for Procedure/Surgery [id number]#1.00TIFF [facility] Consent for Treatmenton 06-16 Consent for Treatment [id number]#1.00TIFF Normal [facility] Discharge Instructionson Discharge Instructions [id number]#1.00TIFF Normal [facility] IntraOperative Documentson 08-30-2022 IntraOperative Documents [id number]#1.00TIFF [facility] Main OR Intraoperative Recor don 06-30-2023 Main OR Intraoperative Record IntraOp Document Type [facility] Summary Primary Physician: Juwan Mendez DO Finalized Date/Time: 06/30/23 10:24:57 Pt. Name: LILO REYES Adan Norris/Sex: 1955 Female Med Rec #: [id number] Physician: Juwan Mendez DO Financial #: [id number] Pt. Type: P Room/Bed: / Admit/Disch: 06/30/23 07:53:37 - Institution: Case Times FTPM Entry 1 Patient Times In Room 06/30/23 10:17:00 Out Room 06/30/23 10:25:00 Procedure Times Start 06/30/23 10:20:00 Stop 06/30/23 10:24:00 Anesthesia Times Last Modified By: Mary Sullivan RN 06/30/23 10:24:47 Case Attendance FTPM Entry 1 Entry 2 Entry 3 Case Attendee Juwan Mendze DO, RN, Cata Trejo RN Role Performed Surgeon - Primary Patient Portal Concierge - Primary Scrub - Primary Time In 06/30/23 10:17:00 06/30/23 10:17:00 06/30/23 10:17:00 Time Out 06/30/23 10:25:00 06/30/23 10:25:00 06/30/23 10:25:00 Procedure TRANSFORAMINAL EPIDURAL TRANSFORAMINAL EPIDURAL TRANSFORAMINAL EPIDURAL STEROID STEROID STEROID INJECTIO(Bilateral) INJECTIO(Bilateral) INJECTIO(Bilateral) Comments Last Modified By: Mary Sullivan RN, RN, Mary Connolly RN 06/30/23 10:24:48 06/30/23 10:24:48 06/30/23 10:24:48 Entry 4 Case Attendee Cheryl Kline Role Performed Team Leader Time In 06/30/23 10:17:00 Time Out 06/30/23 [...] X-ray Applicable) PreOp Antibiotic No Time Out Mary Sullivan RN, Lucas Oreilly RN, Andrea Black DO, Bradford A., Ott, Amy Time Out Complete 06/30/23 10:17:00 Outcomes Met? [...] and tissue Entry 1 Skin Integrity Intact, [place], Warm, and Skin Abnormality No Dry Outcomes [...] Knees Pr (more content not included)... Normal [facility] Main OR Preoperative Recordo n 06-30-2023 Main OR Preoperative Record Holding Area Document Type FTPM Summary Primary Physician: Juwan Mendez DO Finalized Date/Time: 06/30/23 08:20:37 Pt. Name: LILO REYES/Sex: 1955 Female Med Rec #: [id number] Physician: Juwan Mendez DO Financial #: [id number] Pt. Type: P Room/Bed: / Admit/Disch: 06/30/23 [...] Comment: a pair of earrings. Pain Comment: 04/25 lower back pain Operative Site Yes Marking: [...] 08:12 Kandy Richardson RN 06/30/23 08:20 Normal [facility] Giardia, Direct, EIAon 06-25 G. lamblia Ag IA Ql (Stl) Negative Invalid Interpretation Code Negative [facility] Comment on above: Result Comment: [place]: [place] [address] [id number] PhD Abdiel Phan Performed By: #### 3 [id number], [id number], [id number], [id number], [id number], [id number] ####[facility] [address] [place] [address] Rota Abon 06-25-2023 Rotavirus Ag IA Ql (Stl) COMMENT Invalid Interpretation Code [facility] Comment on above: Result Comment: Test not performed. No clean vial stool received. CONTACTED [facility] 06/25/23 Performed at: [address] [id number] PhD Abdiel Phan Performed By: #### 3 [id number], [id number], [id number], [id number], [id number], [id number] ####[facility] [address] [place] [address] SPEC. STATUS REPORTon 2022 Specimen Status Report COMMENT Invalid Interpretation Code [facility] Comment on above: Result Comment: Test not performed. No clean vial stool received. TEST: [id number] Rotavirus Ag, EIA CONTACTED [facility] 06/25/23 Performed at: [facility] [address] [place], [place] [id number] PhD Abdiel Phan Performed By: #### 3 [id number], [id number], [id number], [id number], [id number], [id number] ####[facility] [address] [place] [address] C. diff by PCRon 06-24-2023 C. diff by PCR Specimen Negative fo r toxigenic C. difficile by DNA amplification. Duplicate specimens will not be accepted on this patient for the next 7 days. Published data on the sensitivity of molecular assays suggest there is no diagnostic value in repeat testing of samples in close time sequence. Normal Negative [facility] Comment on above: Result Comment: This test result should be correlated with clinical presentations and medical history by a healthcare provider to determine its clinical significance.\.br\.br\ Other Comment: Order added by Discern Expert. Clostridium difficile by PCR Negative Normal Negative [facility] Comment on above: Order Comment: Order added by Discern Expert. Result Comment: This test result should be correlated with clinical presentations and medical history by a healthcare provider to determine its clinical significance. Performed By: #### 3 [id number], [id number], [id number], 68589934, 29484225, [id number] ####[facility] [address] [place] [address] CDiff PCRon 06-24-2023 CDiff PCR Specimen has been fo und to be acceptable for C. difficile testing. Normal [facility] Cdiff Specimen Acceptable Acceptable Normal [facility] Comment on above: Performed By: #### 3 [id number], [id number], 91785568, 96745152, [id number], [id number] ####[facility] [address] [place] [address] Order Cancelled No, PCR to follow Normal [facility] Comment on above: Performed By: #### 3 [id number], [id number], 24580191, 97889083, 51873686, [id number] ####[facility] [address] [place] [address] Fecal WBC Lactoferrinon Lactoferrin Ql (Stl) Negative Normal Negative [facility] Comment on above: Result Comment: The semi-quantitative detection of elevated levels of fecal lactoferrin is a marker for fecal leukocytes and an indication of intestinal inflammation. Performed By: #### 3 [id number], [id number], 41778525, 21751920, 07387381, [id number] #### [facility] [address] [place] [address] Nurse Consultation Noteon Nurse Consultation Note Reason [...] zoster vaccine live 02/12/2023 Recorded SARS-CoV-2 (COVID-19) mRNAMUL.ORD!r30028 02/12/2023 Recorded influenza virus vaccine, inactivated 06/08/2022 Recorded SARS-CoV-2 (COVID-19) mRNAMUL.ORD!f96864 06/08/2022 Recorded SARSCoV2 mRNA(dbmnowkqh-synu-xzomlf) vac 11/28/2021 Recorded influenza virus vaccine, inactivated [...] Recorded influenza virus vaccine, inactivated 07/05/2014 Recorded [facility] Outside Mammographyon 2022 Outside Mammography [id number]#1.00TIFF [facility] Ambulatory Visit Summaryon 1 08-22-2022 Ambulatory Visit Summary LILO REYES Adan :1955 Visit Date:06/22/2023 Ambulatory Visit Instructions Your [...] Appointments Wednesday 9:45 AM EST With: Where: [facility] Pain Management Wednesday 10:00 AM EST With: Jaci Tee Where: [facility] Yan[place] Normal [facility] Family Medicine Office/Clini c Noteon 06-22-2023 Family Medicine Office/Clinic [...] fecal abnormalities) will send stool sample to hospitla Ordered: Clostridium Difficile PCR Fecal WBC Lactoferrin [...] spasm, # 30 tab(s), Refills(s) 0, Pharmacy: [facility]/pharmacy #[id number], 160, cm, 06/22/23 9:45:00 EST, Height/Length Dosing, 88.5, kg, 06/22/23 9:45:00 EST, Weight Dosing methylPREDNISolone, = 1 packet(s), Oral, Once, as directed on package labeling, # 21 tab(s), Refills(s) 0, Pharmacy: [facility]/pharmacy #[id number], 160, cm, 06/22/23 9:45:00 EST, Height/Length Dosing, [...] week, 11/05/2022 Alcazar (more content not included)... Normal [facility] Comment on above: Result Comment: Elec tronically Signed By: Jaci Tee.lyndsey\Date and Time Signed: 06/22/23 10:11 EST Patient Correspondenceon Patient Correspondence [id number]#1.00TIFF Normal [facility] Consent for Treatmenton 05-17 Consent for Treatment [id number]#1.00TIFF Normal [facility] Consultation Noteon 06-10-20 Consultation Note Patient: OMEGA REYES MRN: [id number] Age: 67 years Sex: Female : 1955 [...] cancer Father Mother Procedure history: Left SIJI (0924533231) on 05/12/2023 at 67 Years. Comments: 06/10/2023 7:56 Mary Elias RN Left SIJI-50% relief x 2 weeks. Left SIJI (4898210151) on 01/20/2023 at 67 Years. Comments: 02/19/2023 10:46 Mary Elias RN Left SIJI-100% x 2 weeks Injection of facet joint using fluoroscopic guidance (8618195837) on 11/18/2022 at 67 Years. Comments: 12/17/2022 10:25 Cata Shaikh RN Left L5/S1 MBB 50% relief History of left knee replacement (468024665617185) in 2021 at 67 Years. History of spinal fusion (0546541114) in 2020 at 66 Years. Cataract surgery (128885137) in 2020 at 66 Years. History of carpal tunnel decompression (6330185421) in 2019 at 64 Years. History of urinary bladder surgery (984225855283443) in 2011 at 57 Years. Abdominal hysterectomy (692272687) in 1998 at 44 Years. Arthroscopy of knee (022289310) in 1998 at 44 Years. History of repair of rotator cuff (3346227120) in 1986 at 32 Years. Stripping of vein (395042325) in 1985 at 31 Years. Appendectomy (967566797) in 1983 at 29 Years. Cholecystectomy (79329559) in 1983 at 29 Years. History of tonsillectomy (8653235263) in 8 at 3 Years. Physical Examination Vital Signs (last 24 hrs) Last Charted Heart Rate Peripheral L 48bpm (JUN 10:) SBP 115 mmHg (JUN 10:) DBP 61 mmHg (JUN 10:) Weight 86.18 kg (JUN 10:) BMI 33.66 (JUN 10:) General: No acute distress. Patient appears well-nourished. [...] only, F (more content not included)... Normal [facility] Comment on above: Result Comment: Elec tronically Signed By: Juwan Mendez DO\.br\Date and Time Signed: 06/10/23 08:25 EDT Office/Clinic Note-Physician on 06-10-2023 Office/Clinic Note-Physician [id number]#1.00TIFF Normal [facility] Patient Correspondenceon Patient Correspondence [id number]#1.00TIFF Normal [facility] Patient Correspondence [id number]#1.00TIFF Normal [facility] Patient Correspondence [id number]#1.00TIFF [facility] Patient History Officeon Patient History Office [id number]#1.00TIFF [facility] Consent for Procedure/Surger yon 05-13-2023 Consent for Procedure/Surgery [id number]#1.00CD:127 [facility] Discharge Instructionson Discharge Instructions [id number]#1.00CD:127 [facility] IntraOperative Documentson 0 05-13-2023 IntraOperative Documents [id number]#1.00CD:127 [facility] Consent for Treatmenton 04-17 Consent for Treatment [id number]#1.00CD:127 [facility] Main OR Intraoperative Recor don 05-12-2023 Main OR Intraoperative Record IntraOp Document Type FTPM Summary Primary Physician: Juwan Mendez DO Finalized Date/Time: 05/12/23 14:16:06 Pt. Name: LILO REYES/Sex: 1955 Female Med Rec #: [id number] Physician: Juwan Mendez DO Financial #: [id number] Pt. Type: P Room/Bed: / Admit/Disch: 05/12/23 13:25:35 - Institution: Case Times FTPM Entry 1 Patient Times In Room 05/12/23 14:08:00 Out Room 05/12/23 14:16:00 Procedure Times Start 05/12/23 14:11:00 Stop 05/12/23 14:15:00 Anesthesia Times Last Modified By: Nate DURAN, Mary Berry 05/12/23 14:16:00 Case Attendance FTPM Entry 1 Entry 2 Entry 3 Case Attendee Juwan Mendez DO, RN, Altagracia Bhardwaj RN Role Performed Surgeon - Primary Patient Portal Concierge - Primary Scrub - Primary Time In 05/12/23 14:08:00 05/12/23 14:08:00 05/12/23 14:08:00 Time Out 05/12/23 14:16:00 05/12/23 14:16:00 05/12/23 14:16:00 Procedure SACROILIAC JOINT SACROILIAC JOINT SACROILIAC JOINT INJECTION(Left) INJECTION(Left) INJECTION(Left) Comments Last Modified By: Mary Sullivan RN, RN, Mary Connolly RN 05/12/23 14:16:01 05/12/23 14:16:01 05/12/23 14:16:01 Entry 4 Case Attendee Cheryl Kline Role Performed Team Leader Time In 05/12/23 14:08:00 Time Out 05/12/23 [...] (If X-ray Applicable) Time Out Mary Sullivan RN, Time Out Complete 05/12/23 14:08:00 Participants Yuriy DURAN, Andrea Ballesteros DO, Eliud Mims Amy Outcomes Met? Yes Last Modified By: [...] and tissue Entry 1 Skin Integrity Intact, [place], Warm, and Skin Abnormality No Dry Outcomes [...] The venus (more content not included)... Normal [facility] Main OR Preoperative Recordo n 05-12-2023 Main OR Preoperative Record Holding Area Document Type FTPM Summary Primary Physician: Juwan Mendez DO Finalized Date/Time: 05/12/23 13:41:14 Pt. Name: LILO REYES Myrna/Sex: 1955 Female Med Rec #: [id number] Physician: Juwan Mendez DO Financial #: [id number] Pt. Type: P Room/Bed: / Admit/Disch: 05/12/23 [...] By: Angela Hu RN 05/12/23 13:41 Normal [facility] Consultation Noteon 05-07-20 Consultation Note [id number]#1.00CD:127 Normal [facility] Patient Correspondenceon Patient Correspondence [id number]#1.00CD:127 Normal [facility] Consent for Treatmenton 04-16 Consent for Treatment [id number]#1.00CD:127 Normal [facility] Consultation Noteon 04-28-20 Consultation Note Patient: [...] TID, # 180 cap(s), Refills(s) 0, Pharmacy: [facility]/pharmacy #[id number], 160, cm, 04/02/23 9:46:00 EDT, Height/Length [...] Lung cancer Father Mother Procedure history: Left GUY (8859088275) on 01/20/2023 at 67 Years. Comments: 02/19/2023 10:46 SONIA - Nate DURAN, Mary J Left SIJI-100% x 2 weeks Injection of facet joint using fluoroscopic guidance (9835279029) on 11/18/2022 at 67 Years. Comments: 12/17/2022 10:25 EDT - Denilson DURAN, Cata Webster Left L5/S1 MBB 50% relief History of left knee replacement (754477619621691) in 2021 at 67 Years. History of spinal fusion (8360667257) in 2020 at 66 Years. Cataract surgery (182362705) in 2020 at 66 Years. History of carpal tunnel decompression (4794728380) in 2018 at 64 Years. History of urinary bladder surgery (288665483289852) in 2011 at 57 Years. Abdominal hysterectomy (789342316) in 1998 at 44 Years. Arthroscopy of knee (685106575) in 1998 at 44 Years. History of repair of rotator cuff (3393774426) in 1986 at 32 Years. Stripping of vein (855827729) in 1985 at 31 Years. Appendectomy (598053624) in 1983 at 29 Years. Cholecystectomy (07039189) in 1983 at 29 Years. History of tonsillectomy (8169331323) in 1957 at 3 Years. Social History Social & Psychosocial Habits Alcohol 11/05/2022 Use: Current Frequency: 1-2 times per week 11/05/2022 Risk Assessment: No Risk Substance Abuse 11/05/2022 Risk Assessment: Denies Substance Abuse 01/22/2023 Concerns about substance abuse in household: No Tobacco 11/05/2022 Risk Assessment: Denies Tobacco Use 01/22/2023 Tobacco Use: Never (less than 100 in (more content not included)... Normal [facility] Comment on above: Result Comment: Elec tronically Signed By: Juwan Mendez DO.br\Date and Time Signed: 04/28/23 14:27 EDT Office/Clinic Note-Physician on 04-28-2023 Office/Clinic Note-Physician [id number]#1.00CD:127 Normal [facility] Patient Correspondenceon Patient Correspondence [id number]#1.00CD:127 Normal [facility] Patient Correspondence [id number]#1.00CD:127 Normal [facility] Patient History Officeon Patient History Office [id number]#1.00CD:127 Normal [facility] Consent for Treatmenton 03-16 Consent for Treatment [id number]#1.00CD:127 Normal [facility] Consultation Noteon 04-02-20 Consultation Note Patient: [...] day(s), # 30 cap(s), Refills(s) 1, Pharmacy: [facility]/pharmacy #[id number], 160, cm, 02/19/23 10:50:00 EDT, Height/Length [...] All Problems HTN (hypertension) / SNOMED CT 6390280570 / Confirmed H/O gastroesophageal reflux (GERD) / SNOMED CT 1018361015 / Confirmed H/O: osteoarthritis / SNOMED CT 316823813 / Confirmed Lower back pain / SNOMED CT 078265880 / Confirmed Rib pain on left side / SNOMED CT 382368123 / Confirmed Muscle spasm / SNOMED CT 35535871 / Confirmed Objective Vital Signs 04/02/2023 9:34 [...] of the left knee Integumentary: Warm, Dry, [place]. Neurologic: Alert, Oriented. Psychiatric: Cooperative, Appropriate mood [...] she is going (more content not included)... Normal [facility] Comment on above: Result Comment: Elec tronically Signed By: Louise Owusu PA-C\.br\Date and Time Signed: 04/02/23 10:20 EDT\.br\Electronically Co-Signed By: Garrett Dennison MD\.br\Date and Time Co-Signed: 04/03/23 17:12 EDT Office/Clinic Note-Physician on 04-02-2023 Office/Clinic Note-Physician [id number]#1.00CD:127 Normal [facility] Patient Correspondenceon Patient Correspondence [id number]#1.00CD:127 Normal [facility] Patient Correspondence [id number]#1.00CD:127 Normal [facility] Patient History Officeon Patient History Office [id number]#1.00CD:127 Normal [facility] Consultation Noteon 03-05-20 Consultation Note [id number]#1.00CD:127 [facility] Consent for Treatmenton Consent for Treatment [id number]#1.00CD:127 [facility] Consultation Noteon 02-20-20 Consultation Note Patient: OMEGA [...] spasm, # 30 tab(s), Refills(s) 0, [id number] 160, cm, 01/22/23 10:29:00 EDT, Height/Length Dosing, 98.8, kg, 01/22/23 10:29:00 EDT, Weight Dosing pregabalin 50 mg Cap: 50 mg = 1 cap(s), Oral, Bedtime, X 30 day(s), # 30 cap(s), Refills(s) 1, [id number] 160, cm, 02/19/23 10:50:00 EDT, Height/Length [...] All Problems HTN (hypertension) / SNOMED CT 5336404022 / Confirmed H/O gastroesophageal reflux (GERD) / SNOMED CT 6346502068 / Confirmed H/O: osteoarthritis / SNOMED CT 213644683 / Confirmed Lower back pain / SNOMED CT 306123371 / Confirmed Rib pain on left side / SNOMED CT 708673921 / Confirmed Muscle spasm / SNOMED CT 82845391 / Confirmed Objective Vital Signs 02/19/2023 10:44 [...] 5/5 lower extremity strength Integumentary: Warm, Dry, [place]. Injection site well-healed Neurologic: Alert, Oriented. Psychiatric: [...] sooner if necessary. ANN score: 24% Normal [facility] Comment on above: Result Comment: Elec tronically Signed By: Louise Owusu PA-C\.br\Date and Time Signed: 02/19/23 11:01 EDT\.br\Electronically Co-Signed By: Garrett Dennison MD\.br\Date and Time Co-Signed: 02/24/23 21:15 EDT Office/Clinic Note-Physician on 02-19-2023 Office/Clinic Note-Physician [id number]#1.00CD:127 Normal [facility] Patient Correspondenceon Patient Correspondence [id number]#1.00CD:127 Normal [facility] Patient Correspondence [id number]#1.00CD:127 Normal [facility] Patient Correspondence [id number]#1.00CD:127 Normal [facility] Patient History Officeon Patient History Office [id number]#1.00CD:127 Normal [facility] Immunization Recordson 02-15 Immunization Records [id number]#1.00CD:127 Normal [facility] MRI LSPINE WO CONon 09-28-19 MRI LSPINE [...] FRANCOIS ALBERT Date: 2022-09-28 16:30 Normal [facility] CBC AUTO DIFFon 09-17-2022 BASO # 0.1 103/ul Normal 0.0-0.1 [facility] Comment on above: Performed By: #### C BC #### [facility] [address] [place] [address] Dr. Jase Woodward Basophils/100 WBC (Bld) 0.9 % Normal 0.2-2.0 [facility] Comment on above: Performed By: #### C BC #### [facility] [address] [place] [address] Dr. Jase Woodward EO # 0.3 103/ul Normal 0.0-0.7 [facility] Comment on above: Performed By: #### C BC #### [facility] [address] [place] [address] Dr. Jase Woodward Eosinophils/100 WBC (Bld) 4.5 % Normal 0.9-7.0 [facility] Comment on above: Performed By: #### C BC #### [facility] [address] [place] [address] Dr. Jase Woodward Erythrocyte distribution width (RBC) [Ratio] 14.9 % Normal 11.0-15.0 [facility] Comment on above: Performed By: #### C BC #### [facility] [address] [place] [address] Dr. Jase Woodward Hematocrit (Bld) [Volume fraction] 43.3 % Normal 36.0-48.0 [facility] Comment on above: Performed By: #### C BC #### [facility] [address] [place] [address] Dr. Jase Woodward Hemoglobin (Bld) [Mass/Vol] 13.0 g/dL Normal 12.0-16.0 [facility] Comment on above: Performed By: #### C BC #### [facility] [address] [place] [address] Dr. Jase Woodward IG # 0.01 10e3/ul Normal 0.00-0.03 [facility] Comment on above: Performed By: #### C BC #### [facility] [address] [place] [address] Dr. Jase Woodward IG % 0.2 % Normal 0.0-0.5 [facility] Comment on above: Performed By: #### C BC #### [facility] [address] [place] [address] Dr. Jase Woodward LYMPH # 1.8 103/ul Normal 1.2-3.8 [facility] Comment on above: Performed By: #### C BC #### [facility] [address] [place] [address] Dr. Jase Woodward Lymphocytes/100 WBC (Bld) 31.4 % Normal 20.5-60.0 [facility] Comment on above: Performed By: #### C BC #### [facility] [address] [place] [address] Dr. Jase Woodward MANUAL DIFF REQ NO Normal [facility] Comment on above: Performed By: #### C BC #### [facility] [address] [place] [address] Dr. Jase Woodward MCH (RBC) [Entitic mass] 26.9 pg Normal 26.7-34.0 [facility] Comment on above: Performed By: #### C BC #### [facility] [address] [place] [address] Dr. Jase Woodward MCHC (RBC) [Mass/Vol] 30.0 g/dL Normal 29.9-35.2 [facility] Comment on above: Performed By: #### C BC #### [facility] [address] [place] [address] Dr. Jase Woodward MCV (RBC) [Entitic vol] 89.6 fL Normal 81.0-99.0 [facility] Comment on above: Performed By: #### C BC #### [facility] [address] [place] [address] Dr. Jase Woodward MONO # 0.4 103/ul Normal 0.3-0.8 [facility] Comment on above: Performed By: #### C BC #### [facility] [address] [place] [address] Dr. Jase Woodward Monocytes/100 WBC (Bld) 7.1 % Normal 1.7-12.0 [facility] Comment on above: Performed By: #### C BC #### [facility] [address] [place] [address] Dr. Jase Woodward NEUT # 3.3 103/ul Normal 1.4-6.5 [facility] Comment on above: Performed By: #### C BC #### [facility] [address] [place] [address] Dr. Jase Woodward Neutrophils/100 WBC (Bld) 55.9 % Normal 43.0-75.0 [facility] Comment on above: Performed By: #### C BC #### [facility] [address] [place] [address] Dr. Jase Woodward Platelet mean volume (Bld) [Entitic vol] 11.3 fL Normal 9.5-13.5 [facility] Comment on above: Performed By: #### C BC #### [facility] [address] [place] [address] Dr. Jase Woodward PLT 221 103/ul Normal 150-450 [facility] Comment on above: Performed By: #### C BC #### [facility] [address] [place] [address] Dr. Jase Woodward RBC 4.83 106/ul Normal 4.20-5.40 [facility] Comment on above: Performed By: #### C BC #### [facility] [address] [place] [address] Dr. Jase Woodward WBC 5.8 103/ul Normal 4.0-11.0 [facility] Comment on above: Performed By: #### C BC #### [facility] [address] [address] [address] Jase Woodward LIPID PROFILEon 09-17-2022 CHOL-HDL RATIO NORM SEE BELOW Normal [facility] Comment on above: Result Comment: 3.3 - 4.4 LOW RISK 4.4 - 7.1 AVERAGE RISK 7.1 - 11.0 MODERATE RISK >11.0 HIGH RISK Performed By: #### C MP, LIPID #### [facility] [address] [address] [address] Jase Woodward Cholesterol [Mass/Vol] 222 mg/dL Critically high <=200 [facility] Comment on above: Performed By: #### C MP, LIPID #### [facility] [address] [place] [address] Dr. Jase Woodward Cholesterol in HDL [Mass/Vol] 55 mg/dL Normal 40-60 [facility] Comment on above: Performed By: #### C MP, LIPID #### [facility] [address] [address] [address] Jase Woodward Cholesterol in LDL [Mass/Vol] 129.4 mg/dL Normal [facility] Comment on above: Performed By: #### C MP, LIPID #### [facility] [address] [place] [address] Dr. Jase Woodward Cholesterol.total/ Cholesterol in HDL [Mass ratio] 4.0 {ratio} Normal [facility] Comment on above: Performed By: #### C MP, LIPID #### [facility] [address] [address] [address] Jase Woodward HDL NORMAL > or = 60 mg/dl - LO W CARDIOVASCULAR RISK <40 mg/dl - HIGH CARDIOVASCULAR RISK Normal [facility] Comment on above: Performed By: #### C MP, LIPID #### [facility] [address] [place] [address] Dr. Jase Woodward LDL CALC NORMAL SEE BELOW Normal [facility] Comment on above: Result Comment: <100 mg/dl OPTIMAL 100 - 129 mg/dl NEAR OR ABOVE OPTIMAL 130 - 159 mg/dl BORDERLINE HIGH 160 - 189 mg/dl HIGH >190 mg/dl VERY HIGH Performed By: #### C MP, LIPID #### [facility] [address] [place] [address] Dr. Jase Woodward Triglyceride [Mass/Vol] 188 mg/dL Critically high <=150 [facility] Comment on above: Performed By: #### C MP, LIPID #### [facility] [address] [address] [address] Jase Woodward VLDL CALC 37.6 mg/dL Normal [facility] Comment on above: Performed By: #### C MP, LIPID #### [facility] [address] [address] [address] Jase Woodward PROF 14(COMP METB)on 023 Albumin [Mass/Vol] 3.9 g/dL Normal 3.4-5.0 [facility] Comment on above: Performed By: #### C MP, LIPID #### [facility] [address] [place] [address] Dr. Jase Woodward Albumin/Globulin [Mass ratio] 1.1 {ratio} Normal [facility] Comment on above: Performed By: #### C MP, LIPID #### [facility] [address] [place] [address] Dr. Jase Woodward ALP [Catalytic activity/Vol] 65 U/L Normal 46-116 [facility] Comment on above: Performed By: #### C MP, LIPID #### [facility] [address] [place] [address] Dr. Jase Woodward ALT [Catalytic activity/Vol] 23 U/L Normal 14-59 [facility] Comment on above: Performed By: #### C MP, LIPID #### [facility] [address] [place] [address] Dr. Jase Woodward Anion gap [Moles/Vol] 13.7 mmol/L Normal [facility] Comment on above: Performed By: #### C MP, LIPID #### [facility] [address] [place] [address] Dr. Jase Woodward AST [Catalytic activity/Vol] 16 U/L Normal 15-37 [facility] Comment on above: Performed By: #### C MP, LIPID #### [facility] [address] [place] [address] Dr. Jase Woodward Bilirubin [Mass/Vol] 0.3 mg/dL Normal 0.2-1.0 [facility] Comment on above: Performed By: #### C MP, LIPID #### [facility] [address] [address] [address] Jase Woodward Calcium [Mass/Vol] 9.7 mg/dL Normal 8.5-10.1 [facility] Comment on above: Performed By: #### C MP, LIPID #### [facility] [address] [place] [address] Dr. Jase Woodward Chloride [Moles/Vol] 105 mmol/L Normal 98-107 [facility] Comment on above: Performed By: #### C MP, LIPID #### [facility] [address] [place] [address] Dr. Jase Woodward CO2 [Moles/Vol] 28.0 mmol/L Normal 21.0-32.0 [facility] Comment on above: Performed By: #### C MP, LIPID #### [facility] [address] [place] [address] Dr. Jase Woodward Creatinine [Mass/Vol] 0.69 mg/dL Normal 0.55-1.02 [facility] Comment on above: Performed By: #### C MP, LIPID #### [facility] [address] [place] [address] Dr. Jase Woodward EGFR-AF NIGERIEN >60 Normal >=60 [facility] Comment on above: Performed By: #### C MP, LIPID #### [facility] [address] [place] [address] Dr. Jase Woodward EGFR-NON AF NIGERIEN >60 Normal >=60 [facility] Comment on above: Performed By: #### C MP, LIPID #### [facility] [address] [place] [address] Dr. Jase Woodwadr Globulin (S) [Mass/Vol] 3.7 g/dL Normal [facility] Comment on above: Performed By: #### C MP, LIPID #### [facility] [address] [address] [address] Jase Woodward Glucose [Mass/Vol] 109 mg/dL Critically high 74-106 T [facility] Comment on above: Performed By: #### C MP, LIPID #### [facility] [address] [address] [address] Jase Woodward Potassium [Moles/Vol] 4.7 mmol/L Normal 3.5-5.1 [facility] Comment on above: Performed By: #### C MP, LIPID #### [facility] [address] [address] [address] Jase Woodward Protein [Mass/Vol] 7.6 g/dL Normal 6.4-8.2 [facility] Comment on above: Performed By: #### C MP, LIPID #### [facility] [address] [address] [address] Jase Woodward Sodium [Moles/Vol] 142 mmol/L Normal 136-145 [facility] Comment on above: Performed By: #### C MP, LIPID #### [facility] [address] [address] [address] Jase Woodward Urea nitrogen [Mass/Vol] 19.0 mg/dL Critically high 7.0-18.0 [facility] Comment on above: Performed By: #### C MP, LIPID #### [facility] [address] [address] [address] Jase Woodward Urea nitrogen/Creatinin e [Mass ratio] 27.5 mg/mg Normal [facility] Comment on above: Performed By: #### C MP, LIPID #### [facility] [address] [address] [address] Jase Woodward XR LSPINE MIN 4 [...] by: LEXUS NEW Date: 2022-09-15 15:32 Normal [facility] LARGE JOINT/BURSA INJECTION AND/OR ASPIRATION: L kneeon [...] complications The patient was prepped with Chloraprep. [facility] Braulio Garay MD 2:16 PM LARGE JOINT/BURSA [...] MG/ML The patient was prepped with Betadine. [facility] No Panel Informationon 07-15 [facility] Radiology Study observation (narrative) [facility] MG MAMM SCREEN 3D BHARAT CADon 06-22-2022 MG MAMM SCREEN 3D BHARAT CAD Patient: LILO REYESRadha Exam Date: 06/22/2022 : 1955 Gender:F Ordering : DR LEON SOLARES . Admission #: [id number] Family : Order #: [id number] CLICK HERE TO VIEW EXAM RADIOLOGY REPORT [...] lung cancer at age 61. LOCATION: [facility] BREAST COMPOSITION: Scattered areas fibroglandular density. FINDINGS: [...] MD on 06/22/2022 at 12:11 Normal [facility] MRI Knee w/o Lefton 02-26-20 MRI Knee w/o Left History: Internal de [...] by Alexis Patel on 02/25/2022 1411 Normal [facility] C-Reactive Proteinon 022 CRP IV 0.8 mg/dl Normal <5.0 [facility] Specialist Comment on above: Performed By: #### C RP, ESR #### [facility] [address], [place] [id number] RBC Sedimentation Rateon ESR (Bld) [Velocity] 18.00 mm/h Normal 0.00-30.00 [facility] Specialist Comment on above: Performed By: #### C RP, ESR #### [facility] [address], [place] [id number] Basic Metabolic Panel Reflex Mgon 06-28-2020 Anion gap [Moles/Vol] 10 mmol/L Normal 9-15 [facility] Comment on above: Performed By: #### B MPX #### [facility] [address] [place] [address] Calcium [Mass/Vol] 8.7 mg/dL Normal 8.5-9.9 [facility] Comment on above: Performed By: #### B MPX #### [facility] [address] [place] [address] Chloride [Moles/Vol] 104 mmol/L Normal 95-107 [facility] Comment on above: Performed By: #### B MPX #### [facility] [address] [place] [address] CO2 [Moles/Vol] 25 mmol/L Normal 20-31 [facility] Comment on above: Performed By: #### B MPX #### [facility] [address] [place] [address] Creatinine [Mass/Vol] 0.59 mg/dL Normal 0.50-0.90 [facility] Comment on above: Performed By: #### B MPX #### [facility] [address] [place] [address] GFR/1.73 sq M predicted among blacks MDRD (S/P/Bld) [Vol rate/Area] mL/min/{1.73_m2} Normal >60 [facility] Comment on above: Result Comment: >60 mL/min/1.73m2 EGFR, calc. for ages 18 and older using the MDRD formula (not corrected for weight), is valid for stable renal function. Performed By: #### B MPX #### [facility] [address] [place] [address] GFR/1.73 sq M.predicted MDRD (S/P/Bld) [Vol rate/Area] mL/min/{1.73_m2} Normal >60 [facility] Comment on above: Result Comment: >60 mL/min/1.73m2 EGFR, calc. for ages 18 and older using the MDRD formula (not corrected for weight), is valid for stable renal function. Performed By: #### B MPX #### [facility] [address] [place] [address] Glucose [Mass/Vol] 126 mg/dL Critically high 70-99 M [facility] Comment on above: Performed By: #### B MPX #### [facility] [address] [place] [address] Potassium reflex Mg 4.1 mEq/L Normal 3.4-4.9 [facility] Comment on above: Performed By: #### B MPX #### [facility] [address] [place] [address] Sodium [Moles/Vol] 139 mmol/L Normal 135-144 [facility] Comment on above: Performed By: #### B MPX #### [facility] [address] [place] [address] Urea nitrogen [Mass/Vol] 9 mg/dL Normal 8-23 [facility] Comment on above: Performed By: #### B MPX #### [facility] [address] [place] [address] Basic Metabolic Panel w/ Ref eamon to MGon 06-28-2020 Anion gap [Moles/Vol] 10 mmol/L [facility] [place] Calcium [Mass/Vol] 8.7 mg/dL 8.5 - 9.9 mg/dL [place] Chloride [Moles/Vol] 104 mmol/L [place] CO2 [Moles/Vol] 25 mmol/L [place] Creatinine [Mass/Vol] 0.59 mg/dL 0.5 - 0.9 mg/dL [place] GFR >60.0 >60 [place] Comment on above: >60 mL/min/1.73m2 EG FR, calc. for ages 18 and older using the MDRD formula (not corrected for weight), is valid for stable renal function. GFR Non- >60.0 >60 [place] Comment on above: >60 mL/min/1.73m2 EG FR, calc. for ages 18 and older using the MDRD formula (not corrected for weight), is valid for stable renal function. Glucose [Mass/Vol] 126 mg/dL High 70 - 99 mg/dL [place] Interpretation and review of laboratory results Abnormal [place] Potassium [Moles/Vol] 4.1 mmol/L [place] Sodium [Moles/Vol] 139 mmol/L [place] Urea nitrogen [Mass/Vol] 9 mg/dL 8 - 23 mg/dL [place] CBC With Platelet and Differ entialon 06-28-2020 Basophils (Bld) [#/Vol] 0.0 10*3/uL Normal 0.0-0.2 [facility] Comment on above: Performed By: #### C BCWD #### [facility] [address] [place] [address] Basophils/100 WBC (Bld) 0.1 % Normal [facility] Comment on above: Performed By: #### C BCWD #### [facility] [address] [place] [address] Eosinophils (Bld) [#/Vol] 0.0 10*3/uL Normal 0.0-0.7 [facility] Comment on above: Performed By: #### C BCWD #### [facility] [address] [place] [address] Eosinophils/100 WBC (Bld) 0.0 % Normal [facility] Comment on above: Performed By: #### C BCWD #### [facility] [address] [place] [address] Erythrocyte distribution width (RBC) [Ratio] 14.2 % Normal 11.5-14.5 [facility] Comment on above: Performed By: #### C BCWD #### [facility] [address] [place] [address] Hematocrit (Bld) [Volume fraction] 32.8 % Low 37.0-47.0 [facility] Comment on above: Performed By: #### C BCWD #### [facility] [address] [place] [address] Hemoglobin (Bld) [Mass/Vol] 10.6 g/dL Low 12.0-16.0 [facility] Comment on above: Performed By: #### C BCWD #### [facility] [address] [place] [address] Lymphocytes (Bld) [#/Vol] 1.3 10*3/uL Normal 1.0-4.8 [facility] Comment on above: Performed By: #### C BCWD #### [facility] [address] [place] [address] Lymphocytes/100 WBC (Bld) 13.7 % Normal [facility] Comment on above: Performed By: #### C BCWD #### [facility] [address] [place] [address] MCH (RBC) [Entitic mass] 27.1 pg Normal 27.0-31.3 [facility] Comment on above: Performed By: #### C BCWD #### [facility] [address] [place] [address] MCHC (RBC) [Mass/Vol] 32.3 % Low 33.0-37.0 [facility] Comment on above: Performed By: #### C BCWD #### [facility] [address] [place] [address] MCV (RBC) [Entitic vol] 83.7 fL Normal 82.0-100.0 [facility] Comment on above: Performed By: #### C BCWD #### [facility] [address] [place] [address] Monocytes (Bld) [#/Vol] 0.6 10*3/uL Normal 0.2-0.8 [facility] Comment on above: Performed By: #### C BCWD #### [facility] [address] [place] [address] Monocytes/100 WBC (Bld) 6.8 % Normal [facility] Comment on above: Performed By: #### C BCWD #### [facility] [address] [place] [address] Neutrophils (Bld) [#/Vol] 7.4 10*3/uL Critically high 1.4-6.5 [facility] Comment on above: Performed By: #### C BCWD #### [facility] [address] [place] [address] Neutrophils/100 WBC (Bld) 79.4 % Normal [facility] Comment on above: Performed By: #### C BCWD #### [facility] [address] [place] [address] Platelets (Bld) [#/Vol] 204 10*3/uL Normal 130-400 [facility] Comment on above: Performed By: #### C BCWD #### [facility] [address] [place] [address] RBC (Bld) [#/Vol] 3.92 10*6/uL Low 4.20-5.40 [facility] Comment on above: Performed By: #### C BCWD #### [facility] [address] [place] [address] WBC (Bld) [#/Vol] 9.3 10*3/uL Normal 4.8-10.8 [facility] Comment on above: Performed By: #### C BCWD #### [facility] [address] [place] [address] CBC auto differentialon 06-16 Basophils (Bld) [#/Vol] 0.0 10*3/uL 0 - 0.2 K/uL [place] Basophils/100 WBC (Bld) 0.1 % [place] Eosinophils (Bld) [#/Vol] 0.0 10*3/uL 0 - 0.7 K/uL [place] Eosinophils/100 WBC (Bld) 0 % [place] Erythrocyte distribution width (RBC) [Ratio] 14.2 % 11.5 - 14.5 % [place] Hematocrit (Bld) [Volume fraction] 32.8 % Low 37 - 47 % [place] Hemoglobin (Bld) [Mass/Vol] 10.6 g/dL Low 12 - 16 g/dL [place] Interpretation and review of laboratory results Abnormal [place] Lymphocytes (Bld) [#/Vol] 1.3 10*3/uL 1 - 4.8 K/uL [place] Lymphocytes/100 WBC (Bld) 13.7 % [place] MCH (RBC) [Entitic mass] 27.1 pg 27 - 31.3 pg [place] MCHC (RBC) [Mass/Vol] 32.3 % Low 33 - 37 % [place] MCV (RBC) [Entitic vol] 83.7 fL 82 - 100 fL [place] Monocytes (Bld) [#/Vol] 0.6 10*3/uL 0.2 - 0.8 K/uL [place] Monocytes/100 WBC (Bld) 6.8 % [place] Neutrophils Absolute 7.4 K/uL High 1.4 - 6.5 K/uL [place] Neutrophils/100 WBC (Bld) 79.4 % [place] Platelets (Bld) [#/Vol] 204 10*3/uL 130 - 400 K/uL [place] RBC (Bld) [#/Vol] 3.92 10*6/uL Low [place] WBC (Bld) [#/Vol] 9.3 10*3/uL 4.8 - 10.8 K/uL [place] Surgical Pathologyon 020 [facility] [address] [id number] FINAL SURGICAL PATHOLOGY REPORT Patient Name: LILO REYES Accession No: [id number] Age Sex: 1955 Location: [facility] [id number] Account No: [id number] Collected: 06/27/2020 [facility] Rec No: [id number] Received: 06/27/2020 Attend Phys: AMILCAR YATES Completed: [...] 3.0 x 3.0 x 0.4 cm. Sections insurance representative are submitted in two cassettes after decalcification. MONICA/CLIF CPT: 59818 X1 [id number] X1 AUTUMN FISHER M.D. 06/28/2020 Electronically signed out by Page 1 of 1 [place] XR LUMBAR SPINE (2-3 VIEWS)o n [...] Yoel Hurley MD 06/28/20 Final result Normal [facility] EXAMINATION: XR LUMB AR SPINE [...] prevertebral soft tissues are within normal limits. [place], [place] Conrad, Jaylonpo Incoming R adiant Results From [employer] - 06/28/2020 12:11 PM EST EXAMINATION: XR [...] IMPRESSION: Status post L4-5 discectomy and fusion. [place] Status post L4-5 dis cectomy and fusion. [place] Basic Metabolic Panel Reflex Mgon 06-27-2020 Anion gap [Moles/Vol] 11 mmol/L Normal 9-15 [facility] Comment on above: Performed By: #### B MPX #### [facility] [address] [facility] [address] Calcium [Mass/Vol] 8.5 mg/dL Normal 8.5-9.9 [facility] Comment on above: Performed By: #### B MPX #### [facility] [address] [place] [facility] [address] Chloride [Moles/Vol] 107 mmol/L Normal 95-107 [facility] Comment on above: Performed By: #### B MPX #### [facility] [address] [place] [address] CO2 [Moles/Vol] 22 mmol/L Normal 20-31 [facility] Comment on above: Performed By: #### B MPX #### [facility] [address] [place] [address] Creatinine [Mass/Vol] 0.59 mg/dL Normal 0.50-0.90 [facility] Comment on above: Performed By: #### B MPX #### [facility] [address] [place] [address] GFR/1.73 sq M predicted among blacks MDRD (S/P/Bld) [Vol rate/Area] mL/min/{1.73_m2} Normal >60 [facility] Comment on above: Result Comment: >60 mL/min/1.73m2 EGFR, calc. for ages 18 and older using the MDRD formula (not corrected for weight), is valid for stable renal function. Performed By: #### B MPX #### [facility] [address] [place] [address] GFR/1.73 sq M.predicted MDRD (S/P/Bld) [Vol rate/Area] mL/min/{1.73_m2} Normal >60 [facility] Comment on above: Result Comment: >60 mL/min/1.73m2 EGFR, calc. for ages 18 and older using the MDRD formula (not corrected for weight), is valid for stable renal function. Performed By: #### B MPX #### [facility] [address] [place] [address] Glucose [Mass/Vol] 119 mg/dL Critically high 70-99 M [facility] Comment on above: Performed By: #### B MPX #### [facility] [address] [place] [address] Potassium reflex Mg 4.1 mEq/L Normal 3.4-4.9 [facility] Comment on above: Performed By: #### B MPX #### [facility] [address] [place] [address] Sodium [Moles/Vol] 140 mmol/L Normal 135-144 [facility] Comment on above: Performed By: #### B MPX #### [facility] [address] [place] [address] Urea nitrogen [Mass/Vol] 13 mg/dL Normal 8-23 [facility] Comment on above: Performed By: #### B MPX #### [facility] [address] [place] [address] Basic Metabolic Panel w/ Ref eamon to MGon 06-27-2020 Anion gap [Moles/Vol] 11 mmol/L [place], [place] Calcium [Mass/Vol] 8.5 mg/dL 8.5 - 9.9 mg/dL [place] Chloride [Moles/Vol] 107 mmol/L [place] CO2 [Moles/Vol] 22 mmol/L [place] Creatinine [Mass/Vol] 0.59 mg/dL 0.5 - 0.9 mg/dL [place] GFR >60.0 >60 [place] Comment on above: >60 mL/min/1.73m2 EG FR, calc. for ages 18 and older using the MDRD formula (not corrected for weight), is valid for stable renal function. GFR Non- >60.0 >60 [place] Comment on above: >60 mL/min/1.73m2 EG FR, calc. for ages 18 and older using the MDRD formula (not corrected for weight), is valid for stable renal function. Glucose [Mass/Vol] 119 mg/dL High 70 - 99 mg/dL [place] Interpretation and review of laboratory results Abnormal [place] Potassium [Moles/Vol] 4.1 mmol/L [place] Sodium [Moles/Vol] 140 mmol/L [place] Urea nitrogen [Mass/Vol] 13 mg/dL 8 - 23 mg/dL [facility] [place] [place] CBC With Platelet No Differe ntialon 06-27-2020 Erythrocyte distribution width (RBC) [Ratio] 14.5 % Normal 11.5-14.5 [facility] Comment on above: Performed By: #### C BCND #### [facility] [address] [place] [address] Hematocrit (Bld) [Volume fraction] 36.8 % Low 37.0-47.0 [facility] Comment on above: Performed By: #### C BCND #### [facility] [address] [place] [address] Hemoglobin (Bld) [Mass/Vol] 11.6 g/dL Low 12.0-16.0 [facility] Comment on above: Performed By: #### C BCND #### [facility] [address] [place] [address] MCH (RBC) [Entitic mass] 27.1 pg Normal 27.0-31.3 [facility] Comment on above: Performed By: #### C BCND #### [facility] [address] [place] [address] MCHC (RBC) [Mass/Vol] 31.5 % Low 33.0-37.0 [facility] Comment on above: Performed By: #### C BCND #### [facility] [address] [place] [address] MCV (RBC) [Entitic vol] 85.9 fL Normal 82.0-100.0 [facility] Comment on above: Performed By: #### C BCND #### [facility] [address] [place] [address] Platelets (Bld) [#/Vol] 217 10*3/uL Normal 130-400 [facility] Comment on above: Performed By: #### C BCND #### [facility] [address] [place] [address] RBC (Bld) [#/Vol] 4.28 10*6/uL Normal 4.20-5.40 [facility] Comment on above: Performed By: #### C BCND #### [facility] [address] [place] [address] WBC (Bld) [#/Vol] 7.1 10*3/uL Normal 4.8-10.8 [facility] Comment on above: Performed By: #### C BCND #### [facility] [address] [place] [address] CBC without Diffon 0 Erythrocyte distribution width (RBC) [Ratio] 14.5 % 11.5 - 14.5 % [place] Hematocrit (Bld) [Volume fraction] 36.8 % Low 37 - 47 % [place] Hemoglobin (Bld) [Mass/Vol] 11.6 g/dL Low 12 - 16 g/dL [place] Interpretation and review of laboratory results Abnormal [place] MCH (RBC) [Entitic mass] 27.1 pg 27 - 31.3 pg [place] MCHC (RBC) [Mass/Vol] 31.5 % Low 33 - 37 % [place] MCV (RBC) [Entitic vol] 85.9 fL 82 - 100 fL [place] Platelets (Bld) [#/Vol] 217 10*3/uL 130 - 400 K/uL [place] RBC (Bld) [#/Vol] 4.28 10*6/uL [place] WBC (Bld) [#/Vol] 7.1 10*3/uL 4.8 - 10.8 K/uL [place] FLUORO FOR SURGICAL PROCEDUR ESon 06-27-2020 FLUORO FOR SURGICAL PROCEDURES : 06/27/2020 9:36 AM CLINICAL HISTORY: R52 Pain ICD10. COMPARISON: None available. Intraoperative fluoroscopy was provided for Dr. Yates procedure. A total of 57.8 seconds of fluoroscopy was used, with 5 fluoroscopic stills saved. No diagnostic images were obtained. Please see Dr. Yates surgical notes for completeness. [place], [place] Conrad, Chpo Incoming R adiant Results From [employer]/Pacs - 06/27/2020 1:32 PM EST FLUORO FOR SURGICAL PROCEDURES : 06/27/2020 9:36 AM CLINICAL HISTORY: R52 Pain ICD10. COMPARISON: None available. Intraoperative fluoroscopy was provided for Dr. Trudy mueller. A total of 57.8 seconds of fluoroscopy was used, with 5 fluoroscopic stills saved. No diagnostic images were obtained. Please see Dr. Yates surgical notes for completeness. [place] FLUORO FOR SURGICAL PROCEDURES FLUORO FOR SURGICAL PROCEDURES : 06/27/2020 9:36 AM CLINICAL HISTORY: R52 Pain ICD10. COMPARISON: None available. Intraoperative fluoroscopy was provided for Dr. Trudy mueller. A total of 57.8 seconds of fluoroscopy was used, with 5 fluoroscopic stills saved. No diagnostic images were obtained. Please see Dr. Yates surgical notes for completeness. Interpreted by: Duong Schroeder MD Signed by: Duong Schroeder MD 06/27/20 Final result Normal [facility] Surgical Specimenon 06-27-20 Surgical Specimen [facility] [address] [place] [address] FINAL SURGICAL PATHOLOGY REPORT Patient Name: LILO REYES Accession No: [id number] Age Sex: 1955 Location: [place] [address] Account No: [id number] Collected: 06/27/2020 [facility] Rec No: [id number] Received: 06/27/2020 Attend Phys: AMILCAR YATES Completed: [...] 3.0 x 3.0 x 0.4 cm. Sections insurance representative are submitted in two cassettes after decalcification. MONICA/CLIF CPT: 15427 X1 21528 X1 AUTUMN FISHER M.D. 06/28/2020 Electronically signed out by Page 1 of 1 [facility] Comment on above: Performed By: #### S UR #### [facility] [address] [place] [address] COVID-19, NAAon 06-23-2020 COVID-19, YANN Not Detected Normal Not Detect [facility] Comment on above: Result Comment: This nucleic acid amplification test was developed and its performance characteristics determined by [employer]. Nucleic acid amplification tests include PCR and [...] detected) result in this assay. Performed at: [facility] [place] [id number] Gas Dispenser: Blas Stone MD, Phone: [phone] Performed By: #### I RCOV #### [facility] [address] [place] [address] XR SPINE ENTIRE (2-3 VIEWS)o n 06-22-2020 There are no acute b ivana changes. There is mild S-shaped scoliosis of the thoracolumbar spine. [facility], [place] EXAMINATION: XR SPIN E ENTIRE (2-3 VIEWS) [...] limits. There are no radiopaque foreign bodies. [facility] Conrad, Stefani Incoming R adiant Results From [employer]/Pacs - 06/22/2020 3:14 PM EST EXAMINATION: XR [...] mild S-shaped scoliosis of the thoracolumbar spine. [facility] COVID-19, NAAon 06-21-2020 Source Swab Anterior nares Normal [facility] Comment on above: Performed By: #### I RCOV #### [facility] [address] [place] [address] Basic Metabolic Panelon 11-0 Anion gap [Moles/Vol] 10 mmol/L Normal 9-15 [facility] Comment on above: Performed By: #### B MP #### [facility] [address] [place] [address] Calcium [Mass/Vol] 9.5 mg/dL Normal 8.5-9.9 [facility] Comment on above: Performed By: #### B MP #### [facility] [address] [place] [address] Chloride [Moles/Vol] 105 mmol/L Normal 95-107 [facility] Comment on above: Performed By: #### B MP #### [facility] [address] [place] [address] CO2 [Moles/Vol] 27 mmol/L Normal 20-31 [facility] Comment on above: Performed By: #### B MP #### [facility] [address] [place] [address] Creatinine [Mass/Vol] 0.62 mg/dL Normal 0.50-0.90 [facility] Comment on above: Performed By: #### B MP #### [facility] [address] [place] [address] GFR/1.73 sq M predicted among blacks MDRD (S/P/Bld) [Vol rate/Area] mL/min/{1.73_m2} Normal >60 [facility] Comment on above: Result Comment: >60 mL/min/1.73m2 EGFR, calc. for ages 18 and older using the MDRD formula (not corrected for weight), is valid for stable renal function. Performed By: #### B MP #### [facility] [address] [place] [address] GFR/1.73 sq M.predicted MDRD (S/P/Bld) [Vol rate/Area] mL/min/{1.73_m2} Normal >60 [facility] Comment on above: Result Comment: >60 mL/min/1.73m2 EGFR, calc. for ages 18 and older using the MDRD formula (not corrected for weight), is valid for stable renal function. Performed By: #### B MP #### [facility] [address] [place] [address] Glucose [Mass/Vol] 100 mg/dL Critically high 70-99 M [facility] Comment on above: Performed By: #### B MP #### [facility] [address] [place] [address] Potassium [Moles/Vol] 4.7 mmol/L Normal 3.4-4.9 [facility] Comment on above: Performed By: #### B MP #### [facility] [address] [place] [address] Sodium [Moles/Vol] 142 mmol/L Normal 135-144 [facility] Comment on above: Performed By: #### B MP #### [facility] [address] [place] [address] Urea nitrogen [Mass/Vol] 16 mg/dL Normal 8-23 [facility] Comment on above: Performed By: #### B MP #### [facility] [address] [place] [address] CBC With Platelet No Differe ntialon 06-20-2020 Erythrocyte distribution width (RBC) [Ratio] 14.7 % Critically high 11.5-14.5 [facility] Comment on above: Performed By: #### C BCND #### [facility] [address] [place] [address] Hematocrit (Bld) [Volume fraction] 37.5 % Normal 37.0-47.0 [facility] Comment on above: Performed By: #### C BCND #### [facility] [address] [place] [address] Hemoglobin (Bld) [Mass/Vol] 12.0 g/dL Normal 12.0-16.0 [facility] Comment on above: Performed By: #### C BCND #### [facility] [address] [place] [address] MCH (RBC) [Entitic mass] 27.4 pg Normal 27.0-31.3 [facility] Comment on above: Performed By: #### C BCND #### [facility] [address] [place] [address] MCHC (RBC) [Mass/Vol] 32.2 % Low 33.0-37.0 [facility] Comment on above: Performed By: #### C BCND #### [facility] [address] [place] [address] MCV (RBC) [Entitic vol] 85.1 fL Normal 82.0-100.0 [facility] Comment on above: Performed By: #### C BCND #### [facility] [address] [place] [address] Platelets (Bld) [#/Vol] 225 10*3/uL Normal 130-400 [facility] Comment on above: Performed By: #### C BCND #### [facility] [address] [place] [address] RBC (Bld) [#/Vol] 4.40 10*6/uL Normal 4.20-5.40 [facility] Comment on above: Performed By: #### C BCND #### [facility] [address] [place] [address] WBC (Bld) [#/Vol] 6.9 10*3/uL Normal 4.8-10.8 [facility] Comment on above: Performed By: #### C BCND #### [facility] [address] [place] [address] Partial Thromboplastin Timeo n 06-20-2020 aPTT Coag (Bld) [Time] 32.1 s Normal 24.4-36.8 [facility] Comment on above: Result Comment: Effe ctive 06/19/2020: Heparin Therapeutic Range: 64.0 ? 98.0 seconds. Performed By: #### P TT #### [facility] [address] [place] [address] Prothrombin Timeon 0 INR Coag (PPP) [Relative time] 0.9 {INR} Normal [facility] Comment on above: Performed By: #### P T #### [facility] [address] [place] [address] PT Coag (PPP) [Time] 12.6 s Normal 12.3-14.9 [facility] Comment on above: Performed By: #### P T #### [facility] [address] [place] [address] Type and 3 cell Screen OB Ca ptureon 06-20-2020 Type and 3 cell Screen OB Capture PATIENT: ERIC OLSON LOC: [facility], BILL# : [id number] : 1955 SEX: F ORDERED BY: ELVI Arellano ORDERED : 06/20/2020 16:07 COLLECTED: 06/20/2020 16:09 ORDER : [id number] RECEIVED : 06/20/2020 17:32 TEST NAME RESULT UNITS RANGES ABN FL ST ABORH Capture A POS F Antibody 3 Cell Scrn Captu NEG F Normal [facility] Comment on above: Performed By: #### T SO3C #### [facility] [address] [place] [address] XR SPINE ENTIRE (2-3 VIEWS)o n 06-20-2020 [...] Yoel Hurley MD 06/22/20 Final result Normal [facility] Provider Orderson 01-20-2018 Provider Orders [id number]operative [facility] 2017 Intraoperative Note [id number][address] Intraoperative [facility]on 2017 Intraoperative Note [id number]#1.00[facility] Outside Recordson 12-30-2017 Outside Records [id number]#1.00[facility] Lab - Other Lab Resultson Lab - Other Lab Results [id number]#[address] [place] [address] Coding Summaryon 12-17-2017 Coding Summary CODING DATE: 018 [facility] STATUS: Home 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: Commercial Insurance ADMIT DX: REASON FOR VISIT DX: M17.11 Unilateral primary osteoarthritis, right knee FINAL DX: PRINCIPAL: M17.11 Unilateral primary osteoarthritis, right knee SECONDARY: I10 Essential (primary) hypertension E11.9 Type 2 diabetes mellitus without complications M54.9 Dorsalgia, unspecified G89.29 Other chronic pain PROCEDURES DOCTOR NAME DATE 47094 Arthroplasty, knee, condyle and Arpan Brock And 12/13/2017 plateau; medial AND lateral compartments with or without patella resurfacing (total knee arthroplasty) RT Right side (used to identify procedures performed on the right side of the body) [id number] Replacement of Right Knee Joint Arpan Brock And 12/13/2017 with Synthetic Substitute, Cemented, Open Approach NOTE: The code number assigned matches the documented diagnosis and / or procedure in the patient's chart. However, the narrative phrase printed from the coding software may appear abbreviated, or result in slightly different terminology. Coded By: Lisbet Swain Date Saved: 12/17/2017 11:16 am [facility] Pathology Sendout Teston Pathology Send Out. See Report [facility] Comment on above: Order Comment: RIGHT KNEE BONE Performed By: #### 1 [id number] ####[facility] (DEFAULT)[address] [place] [address] Consent Formson 12-16-2017 Consent Forms [id number]#1.00OTGTIFF Normal [facility] Discharge Summaryon 12-17-19 Discharge Summary Result Type: Juany s Note-PhysicianResult Date: December 16, 2017 18:51 EDTResult Status: Auth (Verified)Result Title: Discharge Summary *Performed By: Arpan Brock DO on December 16, 2017 18:54 EDTVerified By: Arpan Brock DO on December 16, 2017 18:54 EDTEncounter Info: [id number], [facility], Observation, 12/13/17 - 12/15/17* Final Report *Discharge Summary *Patient: LILO REYES : 62 years Sex: FEMALE : [birth year]Associated Diagnoses: NoneAuthor: Arpan Brock ReviewGeneral resultsToday's utsnmyp63/02/18 05:25 EDT WBC 7.8 x103/mcL Hgb 10.7 gm/dL LOW Hct 33.8 %Results reviewLab /02/18 05:25 EDT WBC 7.8 x103/mcL RBC 4.03 x106/mcL Hgb 10.7 gm/dL LOW Hct 33.8 % MCV 84 fL MCH 27 pg MCHC 32 gm/dL RDW 15.0 % Platelet 204 x103/mcL MPV 10.9 fL HI Auto Neut % 58 % Auto Lymph % 30 % Auto [place] % 8 % Auto Eos % 2.6 % Auto Baso % 0.6 % Neut Abs# 4.5 x103/mcL Lymph Abs# 2.3 x103/mcL [place] Abs# 0.6 x103/mcL Eos Abs# 0.2 x103/mcL [...] 325 mg = 1 cap(s), PRN, PO, d6mdNavfaof list (past medical history):Active Problems (2)DiabetesHypertension,Problem s (Active Problems Only)Hypertensive disorder (SNOMED CT: 2867374871, Onset: --)Diabetes mellitus (SNOMED CT: 678395808, Onset: --)HistoriesProcedure history:Tonsillectomy (978319984).Cholecystectomy (39474279).Hysterectomy and bilateral salpingo-oophorectomy sample (234109395).Vein of lower extremity (330757625).Comments:11/26/2017 11:21 - Rosina Goodwin RNstripping right legArthroscopy of knee (965807523).Comments:11/26/2017 11:22 - Rosina Goodwin RNright knee z7Ebilayr cuff repair (342963021).Comments:11/26/2017 11:22 - Rosina Goodwin RNleftbladder.Comments: 8 11:24 - Rosina Goodwin RNsuspensionKnee replacement (767863230).Social HistorySocial & Psychosocial LzftbiHppjswa43/13/2018 Alcohol Use: Current Frequency: 1-2 times per hpsuSalmzlz36/13/2018 Smoking tobacco use: Never (less than 100 [...] Brock DO[Electronically Signed on: 12/23/2017 07:51 EDT] Analisa French[Verified on: 12/23/2017 07:51 EDT] Analisa French [facility] Intraoperative Noteon 2017 Intraoperative Note [id number] [facility] Medication Managementon Medication Management [id number]#[address] [facility] Progress Note-Physicianon Progress Note-Physician Patient: LILO REYES : 62 years Sex: FEMALE : [birth year]Associated Diagnoses: NoneAuthor: Arpan Brock ReviewGeneral resultsToday's kawysjl09/02/18 05:25 EDT WBC 7.8 x103/mcL Hgb 10.7 gm/dL LOW Hct 33.8 %Results reviewLab /02/18 05:25 EDT WBC 7.8 x103/mcL RBC 4.03 x106/mcL Hgb 10.7 gm/dL LOW Hct 33.8 % MCV 84 fL MCH 27 pg MCHC 32 gm/dL RDW 15.0 % Platelet 204 x103/mcL MPV 10.9 fL HI Auto Neut % 58 % Auto Lymph % 30 % Auto [place] % 8 % Auto Eos % 2.6 % Auto Baso % 0.6 % Neut Abs# 4.5 x103/mcL Lymph Abs# 2.3 x103/mcL [place] Abs# 0.6 x103/mcL Eos Abs# 0.2 x103/mcL [...] 325 mg = 1 cap(s), PRN, PO, j3pkIhzjaik list (past medical history):Active Problems (2)DiabetesHypertension,Problem s (Active Problems Only)Hypertensive disorder (SNOMED CT: 0847898554, Onset: --)Diabetes mellitus (SNOMED CT: 998609334, Onset: --)HistoriesProcedure history:Tonsillectomy (156971439).Cholecystectomy (81220517).Hysterectomy and bilateral salpingo-oophorectomy sample (053889942).Vein of lower extremity (761718628).Comments:11/26/2017 11:21 - Rosina Goodwin RNstripping right legArthroscopy of knee (863333160).Comments:11/26/2017 11:22 - Rosina Goodwin RNright knee z6Clibwdg cuff repair (097205260).Comments:11/26/2017 11:22 - Rosina Goodwin RNleftbladder.Comments: 8 11:24 - Rosina Goodwin RNsuspensionKnee replacement (541242710).Social HistorySocial & Psychosocial ZwdyyrAuykteo40/13/2018 Alcohol Use: Current Frequency: 1-2 times per vopnUjibpga24/13/2018 Smoking tobacco use: Never (less than 100 [...] on: 12/16/2017 18:54 EDT] Arpan Brock DO [facility] Telemetry Stripson 8 Telemetry Strips [id number]#1.00OTGTIFF [facility] .Auto Diff 1on 12-15-2017 Auto Baso % 0.6 % Normal 0.2-2.0 [facility] Comment on above: Performed By: #### 1 [id number] ####[facility] (DEFAULT)[address] [place] [address] Auto [place] % 8 % Normal 1-12 [facility] Comment on above: Performed By: #### 1 [id number] ####[facility] (DEFAULT)[address] [place] [address] Auto Neut % 58 % Normal 44-88 [facility] Comment on above: Performed By: #### 1 [id number] ####[facility] (DEFAULT)[address] [place] [address] Baso Abs# 0.0 x10 Normal 0.0-0.2 [facility] Comment on above: Performed By: #### 1 [id number] ####[facility] (DEFAULT)[address] [place] [address] Eos Abs# 0.2 x10 Normal 0.0-0.4 [facility] Comment on above: Performed By: #### 1 [id number] ####[facility] (DEFAULT)[address] [place] [address] Eosinophils/100 leukocytes 2.6 % Normal 0.9-4.0 [facility] Comment on above: Performed By: #### 1 [id number] ####[facility] (DEFAULT)[address] [place] [address] Lymphocytes 2.3 x10 Normal 1.3-2.9 [facility] Comment on above: Performed By: #### 1 [id number] ####[facility] (DEFAULT)[address] [place] [address] Lymphocytes/100 leukocytes 30 % Normal 14-48 [facility] Comment on above: Performed By: #### 1 [id number] ####[facility] (DEFAULT)[address] [place] [address] [place] Abs# 0.6 x10 Normal 0.0-0.8 [facility] Comment on above: Performed By: #### 1 [id number] ####[facility] (DEFAULT)[address] [place] [address] Neut Abs# 4.5 x10 Normal 1.5-9.2 [facility] Comment on above: Performed By: #### 1 [id number] ####[facility] (DEFAULT)[address] [place] [address] CBC w/ Auto Diffon 8 Erythrocyte distribution width Auto Ratio (RBC) 15.0 % Normal 11.5-15.0 [facility] Comment on above: Performed By: #### 1 [id number] ####[facility] (DEFAULT)[address] [place] [address] Erythrocytes (RBC) 4.03 x10 Normal 3.70-5.30 [facility] Comment on above: Performed By: #### 1 [id number] ####[facility] (DEFAULT)[address] [place] [address] Hematocrit (HCT) 33.8 % Normal 33.7-40.4 [facility] Comment on above: Performed By: #### 1 [id number] ####[facility] (DEFAULT)[address] [place] [address] Hemoglobin mass conc (Bld) 10.7 g/dL Low 11.3-15.9 [facility] Comment on above: Performed By: #### 1 [id number] ####[facility] (DEFAULT)[address] [place] [address] Man Diff? Auto Normal [facility] Comment on above: Performed By: #### 1 [id number] ####[facility] (DEFAULT)[address] [place] [address] MCH 27 pg Normal 24-34 [facility] Comment on above: Performed By: #### 1 [id number] ####[facility] (DEFAULT)[address] [place] [address] MCHC mass conc (RBC) 32 g/dL Normal 26-37 [facility] Comment on above: Performed By: #### 1 [id number] ####[facility] (DEFAULT)[address] [place] [address] MCV 84 fL Normal 81-100 [facility] Comment on above: Performed By: #### 1 [id number] ####[facility] (DEFAULT)[address] [place] [address] Platelet mean volume (PMV) 10.9 fL High 6.3-10.2 [facility] Comment on above: Performed By: #### 1 [id number] ####[facility] (DEFAULT)[address] [place] [address] Platelets 204 x10 Normal 138-427 [facility] Comment on above: Performed By: #### 1 [id number] ####[facility] (DEFAULT)[address] [place] [address] WBC (Leukocytes) 7.8 x10 Invalid Interpretation Code [facility] Comment on above: Performed By: #### 1 [id number] ####[facility] (DEFAULT)[address] [place] [address] Education Noteon 12-15-2017 Education Note Education MaterialsOrthopedicsKnee Rehabilitation Guidelines Following SurgeryAfter knee surgery, it is important to follow instructions from your health care provider about hpdmr-ak-rptbzg (ROM) and muscle strengthening exercises. This will [...] by your health care provider.General instructions? Take fdbt-oan-nyrclqd and prescription medicines only as told by [...] Reviewed: 07/29/2015[employer] Patient Education ? 2017 Tã Em Bé. Normal [facility] Inpatient Clinical Summaryon 12-15-[address] [facility] 2SOUTHClinical Discharge SummaryPERSON INFORMATIONName LILO REYES Age 62 Years [birth year]/Sex FEMALE Language Central African PCP Christy SOLARES Status Med Service ObservationMRN [id number] Acct# Arrival 12/13/17 05:44:49Visit Reason SURGERY - RIGHT TOTAL KNEE Acuity LOSAddress:[address] [id number]:PROVIDER INFORMATIONVITALS INFORMATIONVital Sign Triage LatestTemp Oral 37.1 DegC 36.1 DegCTemp Temporal 36.4 DegC 36.8 DegCTemp IntravascularTemp AxillaryTemp Xgunnb61 Sat 96 % 96 %Respiratory Rate 18 [...] range between ( 1.3 and 2.9 ) [place] Abs#: 0.6 x103/mcL -- Normal range between ( 0.0 and 0.8 ) Auto Baso %: 0.6 % -- Normal range between ( 0.2 and 2.0 ) Auto [place] %: 8 % -- Normal range between [...] Rehabilitation Guidelines Following SurgeryFollow up:With: Address: When:Arpan Brock [address] [place] [address], [address] [place] [address] Business (2) 12/23/2017 8:15 AMWith: Address: When:LEON SOLARES [address] [place] [address] [place] [address] Business (1)DIAGNOSISHypertension; Knee osteoarthritisPROBLEMSProblems Active Diabetes HypertensionComment:PHYS DOC NOTESPatient Understanding: Yes - Patient/family/caregiver verbalizes understanding of instructions given Normal [facility] Inpatient Patient Summaryon 12-15-2017 Inpatient Patient Summary [address] [address] patient Discharge InstructionsName: LILO REYESDOB: [birth year] Address: [address] [place] [address] Care Provider:Name: LEON SOLARESPhone: After you are discharged if you find you have any questions, please, call [phone] ext [phone] to speak to a nurse.Discharge Diagnosis: Hypertension; [...] or business decisions or sign any legal documentsPark[facility] Health [facility] would like to thank you for allowing us to assist you with your healthcare needs. The following includes patient education materials and information regarding your injury/illness.ERIC LILO has been given the following list of follow-up instructions, prescriptions, and patient education materials:Follow-up InstructionsWith: Address: When:Arpan Brock [address] [place] [address], [address] [place] [address] Business (2) 12/23/2017 8:15 AMWith: Address: When:LEON SOLARES [address] [place] [address] Business (1)MedicationsDuring the course of your [...] instructions from your health care provider about cusza-sm-kxilll (ROM) and muscle strengthening exercises. This will [...] by your health care provider.General instructions? Take wngx-fbe-fvqhzfl and prescription medicines only as told by [...] Reviewed: 07/29/2015[employer] Patient Education ? 2017 Tã Em Bé.Viruses or BacteriaWhat?s got you sick?Antibiotics only treat [...] for Disease Control and Prevention April 2014 [facility] Progress Note-Physicianon Progress Note-Physician DATE OF ORTHOPEDIC [...] to almost full extension and flexion to dyvveomnztvqa19-64 degrees.IMPRESSION: DAY #2 STATUS POST TOTAL RIGHT KNEE ARTHROPLASTY AND DOINGWELL.PLAN:1. She will be discharged today.2. She will follow up with Dr. Brock.3. She has been given discharge instructions.4. If there any issues or concerns she might have, she will contact 's office.JAZZMINE Johnson #: [id number]: 12/15/2017T: 12/15/2017[Electronically Signed on: 12/15/2017 13:44 EDT] CHRISTY ARDON DO[Verified on: 12/15/2017 13:44 EDT] CHRISTY ARDON DO[Transcribed on: 12/15/2017 10:24 EDT][facility] .Auto Diff 1on 12-14-2017 Auto Baso % 0.0 % Low 0.2-2.0 [facility] Comment on above: Performed By: #### 7 [id number], [id number], [id number], [id number] ####[facility] (DEFAULT)[address] [place] [address] Auto [place] % 8 % Normal 1-12 [facility] Comment on above: Performed By: #### 7 [id number], [id number], [id number], [id number] ####[facility] (DEFAULT)[address] [place] [address] Auto Neut % 76 % Normal 44-88 [facility] Comment on above: Performed By: #### 7 774254, [id number], [id number], [id number] ####[facility] (DEFAULT)[address] [place] [address] Baso Abs# 0.0 x10 Normal 0.0-0.2 [facility] Comment on above: Performed By: #### 7 [id number], [id number], [id number], [id number] ####[facility] (DEFAULT)[address] [place] [address] Eos Abs# 0.0 x10 Normal 0.0-0.4 [facility] Comment on above: Performed By: #### 7 774151, [id number], [id number], [id number] ####[facility] (DEFAULT)[address] [place] [address] Eosinophils/100 leukocytes 0.0 % Low 0.9-4.0 [facility] Comment on above: Performed By: #### 7 931782, [id number], [id number], [id number] ####[facility] (DEFAULT)[address] [place] [address] Lymphocytes 1.5 x10 Normal 1.3-2.9 [facility] Comment on above: Performed By: #### 7 042599, [id number], [id number], [id number] ####[facility] (DEFAULT)[address] [place] [address] Lymphocytes/100 leukocytes 16 % Normal 14-48 [facility] Comment on above: Performed By: #### 7 276377, [id number], [id number], [id number] ####[facility] (DEFAULT)[address] [place] [address] [place] Abs# 0.7 x10 Normal 0.0-0.8 [facility] Comment on above: Performed By: #### 7 062909, [id number], [id number], [id number] ####[facility] (DEFAULT)[address] [place] [address] Neut Abs# 7.1 x10 Normal 1.5-9.2 [facility] Comment on above: Performed By: #### 7 822098, [id number], [id number], [id number] ####[facility] (DEFAULT)[address] [place] [address] CBC w/ Auto Diffon 8 Erythrocyte distribution width Auto Ratio (RBC) 14.6 % Normal 11.5-15.0 [facility] Comment on above: Performed By: #### 7 173708, 90474791, [id number], [id number] ####[facility] (DEFAULT)[address] [place] [address] Erythrocytes (RBC) 4.05 x10 Normal 3.70-5.30 [facility] Comment on above: Performed By: #### 7 425007, 59091257, [id number], [id number] ####[facility] (DEFAULT)[address] [place] [address] Hematocrit (HCT) 34.0 % Normal 33.7-40.4 [facility] Comment on above: Performed By: #### 7 650161, 58424230, [id number], 7529404 ####[facility] (DEFAULT)[address] [place] [address] Hemoglobin mass conc (Bld) 10.6 g/dL Low 11.3-15.9 [facility] Comment on above: Performed By: #### 7 047748, 19600735, [id number], 1539475 ####[facility] (DEFAULT)[address] [place] [address] Man Diff? Auto Normal [facility] Comment on above: Performed By: #### 7 619401, [id number], [id number], [id number] ####[facility] (DEFAULT)[address] [place] [address] MCH 26 pg Normal 24-34 [facility] Comment on above: Performed By: #### 7 491572, 60717821, [id number], 5994053 ####[facility] (DEFAULT)[address] [place] [address] MCHC mass conc (RBC) 31 g/dL Normal 26-37 [facility] Comment on above: Performed By: #### 7 177020, 85781641, [id number], 0750215 ####[facility] (DEFAULT)[address] [place] [address] MCV 84 fL Normal 81-100 [facility] Comment on above: Performed By: #### 7 595336, 76861445, [id number], [id number] ####[facility] (DEFAULT)[address] [place] [address] Platelet mean volume (PMV) 11.0 fL High 6.3-10.2 [facility] Comment on above: Performed By: #### 7 563442, [id number], [id number], [id number] ####[facility] (DEFAULT)[address] [place] [address] Platelets 217 x10 Normal 138-427 [facility] Comment on above: Performed By: #### 7 964746, 04970888, [id number], 5687592 ####[facility] (DEFAULT)[address] [place] [address] WBC (Leukocytes) 9.3 x10 Invalid Interpretation Code [facility] Comment on above: Performed By: #### 7 747686, 51557489, [id number], [id number] ####[facility] (DEFAULT)[address] [place] [address] Consultation/Specialist Note on 12-14-2017 Consultation/Speci alist Note Patient: LILO REYES : 62 years Sex: FEMALE : [birth year]Associated Diagnoses: Hypertension; Knee osteoarthritisAuthor: Juan Pablo DUBON, Og [facility] ComplaintMedical management requestedHistory of Present IllnessThis is [...] suppository: 10 mg = 1 supp, Supp, MT, Daily, PRN constipation, Routine, Start date 12/13/17 [...] mg Supp [MAGR] 10 mg 1 supp, MT, DailyHYDROmorphone 0.5 mg/0.5 mL Inj [MAGR] 0.5 mg 0.5 mL, IV Push, z1wkbglvGLXxwil hydrochloride 25 mg Tab [MAGR] 50 mg 2 tab(s), PO, l9jpzzeymnbs 2 mg/mL Inj [MAGR] 6 mg 3 mL, IV Push, n9pftyiytrrq 4 mg/mL Inj [MAGR] 4 mg 1 mL, IV Push, d9egzgkdaottugp 2 mg/mL Inj [MAGR] 4 mg 2 mL, IV Push, r5pdpcqenohxz 5 mg Tab [MAGR] 5 mg 1 tab(s), PO, r0zwqisxgddzz 5 mg Tab [MAGR] 10 mg 2 tab(s), PO, e7hnGgrevc Chloride 0.9% FLUSH [MAGR] 3 mL, IV Push, As DirectedSodium Chloride 0.9% FLUSH [MAGR] 10 mL, IV Push, As Directedzolpidem 5 mg Tab [MAGR] 5 mg 1 tab(s), PO, Once a day (at bedtime)Problem list (past medical history):All ProblemsDiabetes / SNOMED CT 208580877 / ConfirmedHypertension / SNOMED CT 9805495183 / ConfirmedCanceled: Alteration in comfort: pain / SNOMED CT 18937986,Active Problems (2)DiabetesHypertensionHistorie sFamily History:CancerMotherDiabetes mellitus type IIMotherFatherSisterCA - Lung cancerFatherHeart diseaseSisterMotherFatherCongen ital heart diseaseSisterCOPDMotherFatherHi gh blood pressureMotherFatherSisterTIAMo therTobacco userMotherFatherSisterGERD - Gastro-esophageal reflux diseaseMotherFatherSisterProced ure history:Tonsillectomy (768181167).Cholecystectomy (03106689).Hysterectomy and bilateral salpingo-oophorectomy sample (943529856).Vein of lower extremity (431270242).Comments:11/26/2017 11:21 - Rosina Goodwin right legArthroscopy of knee (953953817).Comments:11/26/2017 11:22 - Rosina Goodwin RNright knee q4Mnpohct cuff repair (222372528).Comments:11/26/2017 11:22 - Rosina Goodwin RNleftbladder.Comments: 8 11:24 - Rosina Goodwin RNsuspensionKnee replacement (384215598).Social HistorySocial & Psychosocial YdqilbXefintt01/13/2018 Alcohol Use: Current Frequency: 1-2 times per cnwfCcrifti39/13/2018 Smoking tobacco use: Never (less than 100 in l.Physical ExaminationVS/MeasurementsVital Signs (last 24 hrs) Last ChartedTemp Oral 37.1 DegC (DECEMBER 14:00)Heart Rate Peripheral 78 bpm (DECEMBER 14:10)Resp Rate 18 br/min (DECEMBER 14:10)SBP 108 mmHg (DECEMBER 14:00)DBP L 53 mmHg (DECEMBER 14:00)SpO2 94 % (DECEMBER 14:00)General-appears well, vitals are [...] (12/14/17)Auto Lymph %: 16 % (12/14/17) Auto [place] %: 8 % (12/14/17)Auto Neut %: 76 % (12/14/17) Baso Abs#: 0 x103/mcL (12/14/17)Blood Glucose, Capillary. POC: 96 mg/dL (12/13/17) Culture?: Not Indicated (12/13/17)Eos Abs#: 0 x103/mcL (12/14/17) Hct: 34 % (12/14/17)Hgb: 10.6 gm/dL Low (12/14/17) Lymph Abs#: 1.5 x103/mcL (12/14/17)MCH: 26 pg (12/14/17) MCHC: 31 gm/dL (12/14/17)MCV: 84 fL (12/14/17) Micro?: Not Indicated (12/13/17)[place] Abs#: 0.7 x103/mcL (12/14/17) MPV: 11 fL [...] Catheter (12/13/17)WBC: 9.3 x103/mcL (12/14/17)Impression and PlanDiagnosisHypertension (IJG04-CH I10).Knee osteoarthritis (EKT58-XO M17.10).Course: Presently doing well postoperatively. Blood pressure controlled.OrdersWill continue to monitor from a medical perspective. Does not require any intervention at present is her only real medical issue is well-controlled hypertension. Would not yet restart antihypertensive therapy until blood pressure improves further.[Electronically Signed on: 12/14/2017 11:13 EDT] Og Almeida MD[Verified on: 12/14/2017 11:13 EDT] Og Almeida MD [facility] MAGR Intraoperative Recordon 12-14-2017 MAGR Intraoperative Record MAGR Intra-Op Record Summary Primary Physician: Arpan Brock DO Finalized Date/Time: 12/14/17 12:25:00 Pt. Name: ERIC LILO Norris/Sex: 1955 FEMALE Med Rec #: [id number] Physician: Arpan Brock DO Financial #: [id number] Pt. Type: O Room/Bed: [facility]/ Admit/Disch: 12/13/17 05:44:00 - Institution: Case Times [...] Role Performed Surgeon - Primary Scrub Personnel Patient Portal Concierge Time In 12/13/17 07:43:00 12/13/17 07:43:00 12/13/17 07:43:00 Time Out 12/13/17 09:45:00 12/13/17 09:45:00 12/13/17 09:45:00 Procedure Arthroplasty Knee Arthroplasty Knee Arthroplasty Knee Total(Right) Total(Right) Total(Right) Last Modified By: Nic, Stacy Chen RN, RN, Stephanie RN 12/13/17 10:47:05 12/13/17 10:47:05 12/13/17 10:47:05 Entry 4 Entry 5 Entry 6 Case Attendee Larissa Newsome CSFA/MACHINE TAPER, Mariella Potrer CST Role Performed Patient Portal Concierge Blender/Braze Applicator Blender/Braze Applicator Time In 12/13/17 07:43:00 12/13/17 07:43:00 12/13/17 07:43:00 Time Out 12/13/17 09:45:00 12/13/17 09:45:00 12/13/17 09:45:00 Procedure Arthroplasty Knee Arthroplasty Knee Arthroplasty Knee Total(Right) Total(Right) Total(Right) Last Modified By: Stacy Lucero RN, Stephanie RN Sauer, Stephanie RN 12/13/17 10:47:05 12/13/17 10:47:05 12/13/17 10:47:05 General Comments: CHILO LISA REP Surgical Procedures MAGR Pre-Care Text: A.20 [...] Serial Number REF REF REF Lot Number [id number] Tangled [employer] Worker MARIA L MARIA L MARIA L Catalog [...] SURFACE MARIA L TAPERED STEM Serial Number [id number] Lot Number [id number] [employer] Worker MARIA L MARIA L MARIA L Catalog [...] CEMENT MARIA L PATELLA CEMENTED Serial Number [id number] REF [id number] Lot Number [id number] Tangled Yarn Worker MARIA L MARIA L MARIA L Catalog [...] Signed By: Arina Guevara RN 12/14/17 12:25 [facility] Pharmacy Noteon 12-14-2017 Pharmacy Note The patient was admi tted to have total right knee replacement. I reviewed the newly added pain medications for intolerance and none were noted. 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 Reminded to use a stool [...] her use.[Electronically Signed on: 12/14/2017 13:00 EDT] Tmoi Schwartz RPh[Verified on: 12/14/2017 13:00 EDT] Tomi Schwartz RPh [facility] Progress Note - Nurseon Progress Note - Nurse Times 3 max assist to transfer pt. from bed to chair.[Electronically Signed on: 12/14/2017 11:21 EDT] Carlos Alba RN[Verified on: 12/14/2017 11:21 EDT] Carlos Alba note was put in on incorrect pt.[Electronically Signed on: 12/14/2017 15:18 EDT] Ludivina Koehler RN [facility] Progress Note - Nurse Dressing to right [...] place to right hip, foot pumps, and carter hose in place. Pt reports pain is under control with the oxycodone.[Electronically Signed on: 12/14/2017 11:19 EDT] Carlos Alba RN[Verified on: 12/14/2017 11:19 EDT] Carlos Alba note was charted on wrong patient, note was put in on correct pt.[Electronically Signed on: 12/14/2017 15:17 EDT] Ludivina Koehler RN [facility] Progress Note - Nurse IV converted to [...] on: 12/14/2017 11:01 EDT] Carlos Alba RN [facility] Progress Note - Nurse Pt. begs to keep catheter inplace until tomorrow. Informed pt. I will ask Dr. Ardon when he comes in.[Electronically Signed on: 12/14/2017 11:20 EDT] Carlos Alba RN[Verified on: 12/14/2017 11:20 EDT] Carlos Alba RNerror, note put in on wrong pt.[Electronically Signed on: 12/16/2017 14:23 EDT] Carlos Alba RN [facility] Progress Note-Physicianon Progress Note-Physician 12/14/2017 11:12 amThe [...] home tomorrow. Prognosis overall isgood.JAZZMINE Johnson #: [id number]: 12/14/2017T: 12/14/2017[Electronically Signed on: 12/15/2017 08:13 EDT] CHRISTY ARDON DO[Verified on: 12/15/2017 08:13 EDT] CHRISTY ARDON DO[Transcribed on: 12/14/2017 11:29 EDT][facility] Anesthesia Noteon 12-13-2017 Anesthesia Note Patient: OMEGA REYES : 62 years Sex: FEMALE : [birth year]Associated Diagnoses: NoneAuthor: Aelxis Valencia MDPostoperative InformationPost Operative Note: Operative Day.Anesthetic utilized: General.Health StatusAllergies:Allergic Reactions (All)Severity Not DocumentedAmoxicillin- Swelling.Problem list (past medical history):All ProblemsDiabetes / SNOMED CT 700494306 / ConfirmedHypertension / SNOMED CT 6169944644 / ConfirmedPhysical ExaminationVS/MeasurementsVital Signs (last 24 hrs) Last ChartedHeart Rate Peripheral 70 bpm (DEC 13 07:40)Resp Rate 18 br/min (DEC 13 10:00)SBP H 145 mmHg (DEC 13 10:00)DBP 69 mmHg (DEC 13 10:00)SpO2 99 % (DEC 13 10:00)Review / ManagementCondition: Stable.Pt denies any pain. Resting comfortably in PACUAssessmentAnesthetic outcomeNo anesthetic complications noted.PlanTransfer/ Discharge: Patient can be discharged from PACU when criteria met.Condition good.[Electronically Signed on: 12/13/2017 10:05 EDT] Alexis Valencia MD[Verified on: 12/13/2017 10:05 EDT] Alexis Valencia MD [facility] Anesthesia Note Patient: OMEGA REYES : 62 years Sex: FEMALE : [...] 325 mg = 1 cap(s), PRN, PO, b6xgBgaiwwl list (past medical history):All ProblemsDiabetes / SNOMED CT 105702888 / ConfirmedHypertension / SNOMED CT 2460125142 / ConfirmedHistoriesFamily History:CancerMotherDiabetes mellitus type IIMotherFatherSisterCA - Lung cancerFatherHeart diseaseSisterMotherFatherCongen ital heart diseaseSisterCOPDMotherFatherHi gh blood pressureMotherFatherSisterTIAMo therTobacco userMotherFatherSisterGERD - Gastro-esophageal reflux diseaseMotherFatherSisterProced ure history:Tonsillectomy (231348703).Cholecystectomy (79059276).Hysterectomy and bilateral salpingo-oophorectomy sample (787824354).Vein of lower extremity (244909631).Comments:11/26/2017 11:21 - Rosina Goodwin RNstripping right legArthroscopy of knee (364309822).Comments:11/26/2017 11:22 - Rosina Goodwin RNright knee o4Wutcbxk cuff repair (902517811).Comments:11/26/2017 11:22 - Rosina Goodwin RNleftbladder.Comments: 8 11:24 - Rosina Goodwin RNsuspensionSocial History Alcohol Assessment Use: Current. 1-2 times per week Tobacco Assessment Never (less than 100 in lifetime) Tobacco Use:..Social & Psychosocial TzgvepXwcjxnz07/13/2018 Alcohol Use: Current Frequency: 1-2 times per gaksRsujjwt37/13/2018 Smoking tobacco use: Never (less than 100 in l.Physical ExaminationVS/MeasurementsVital Signs (last 24 hrs) Last ChartedHeart Rate Peripheral 70 bpm (DEC 13 07:40)Resp Rate 18 br/min (DEC 13 07:40)SBP 105 mmHg (DEC 13 07:40)DBP 63 mmHg (DEC 13 07:40)SpO2 97 % (DEC 13 07:40)Airway: Mallampati classification: II (soft palate, fauces, uvula [...] on: 12/13/2017 08:28 EDT] Alexis Valencia MD [facility] Consultation/Specialist Note on 12-13-2017 Consultation/Speci alist Note [id number] [facility] History and Physicalon 12-13 History and Physical [id number]#1.00OTGT[facility]R Intraoperative Recordon 12-13-2017 MAGR Intraoperative Record MAGR Intra-Op Record Summary Primary Physician: Finalized Date/Time: 12/13/17 07:46:31 Pt. Name: LILO REYESO.B./Sex: 1955 FEMALE Med Rec #: [id number] Physician: Arpan Brock DO Financial #: [id number] Pt. Type: D Room/Bed: / Admit/Disch: 12/13/17 [...] Klaehn, Margaret RN Role Performed Anesthesiologist of Patient Portal Concierge Patient Portal Concierge Record Time In 12/13/17 07:26:00 12/13/17 07:26:00 12/13/17 07:26:00 Time Out 12/13/17 07:44:00 12/13/17 07:43:00 12/13/17 07:43:00 Procedure Adductor Canal Adductor Canal Adductor Canal Block(Right, Knee) Block(Right, Knee) Block(Right, Knee) Last Modified By: Evette Giles RN, Margaret RN Klaehn, Margaret RN 12/13/17 07:44:21 12/13/17 07:44:21 12/13/17 07:44:21 Entry 4 Case Attendee Larissa Newsome Role Performed Patient Portal Concierge Time In 12/13/17 07:26:00 Time Out 12/13/17 [...] Signed By: Evette Giles RN 12/13/17 07:46 [facility] 8 [facility] PACU Record [facility] PACU Record [facility] Primary Physician: Arpan Brock DO Finalized Date/Time: 12/13/17 11:21:27 Pt. Name: LILO REYES D.O.B./Sex: 1955 FEMALE Med Rec #: [id number] Physician: Arpan Brock DO Financial #: [id number] Pt. Type: D Room/Bed: 220/1 Admit/Disch: 12/13/17 05:44:49 - Institution: PACU Case Times MAGR Entry 1 In PACU I 12/13/17 09:48:00 Discharge from PACU 12/13/17 11:00:00 I Last Modified By: Liliana Ramsey RN 12/13/17 11:21:21 Finalized By: Liliana Ramsey RN Document Signatures Signed By: Liliana Ramsey RN 12/13/17 11:21 [facility] 12-13-2017 MAGR Preoperative Record MAGR Pre-Op Record Summary Primary Physician: Arpan Brock DO Finalized Date/Time: 12/13/17 07:47:00 Pt. Name: REYESLILO./Sex: 1955 FEMALE Med Rec #: [id number] Physician: Arpan Brock DO Financial #: [id number] Pt. Type: D Room/Bed: / Admit/Disch: 12/13/17 [...] Signed By: Evette Giles RN 12/13/17 07:47 Normal [facility] Operative Report - Surgeon/P edd 12-13-2017 [...] on: 12/13/2017 10:15 EDT] Arpan Brock DO [facility] Progress Note - Nurseon 04- Thyroid stimulating hormone (TSH) Pt. received toradol IV and reports it did not help with the #5 right calf pain. I removed the calf pumps and pt. reports her calf discomfort is just about gone. Bharat foot pumps applied. Pt. reports this feels much better.[Electronically Signed on: 12/13/2017 15:11 EDT] Carlos Alba RN[Verified on: 12/13/2017 15:11 EDT] Carlos Alba RN [facility] Progress Note - Nurse Pt. arrives from OR via bed alert and in stable condition. Report received from Liliana DURAN. Pt. reports #5 tolerable pain to calf and behind right knee. Pt. repositioned in bed and reported this took the edge off. Denied further pain med need. Denies nausea. Carter hose, calf pumps, towel rolls, and polar care in place. Morfin drainage clear yellow urine. Dressing to right knee dry and intact. C and DB, foot exercies encouraged hourly. Pt. oriented to room, vitals initiated. Pt. denies numbness and tingling to right lower extremity. Ice chip given.[Electronically Signed on: 12/13/2017 14:55 EDT] Carlos Alba RN[Verified on: 12/13/2017 14:55 EDT] Carlos Alba RN [facility] UA w Culture if Ind Standard on 12-13-2017 Breakpoint UA [facility] Comment on above: Order Comment: morfin insert Performed By: #### 7 [id number], [id number], [id number], [id number] ####[facility] (DEFAULT)[address] [place] [address] Culture? Not Indicated Invalid Interpretation Code [facility] Comment on above: Order Comment: morfin insert Performed By: #### 7 281904, [id number], [id number], [id number] ####[facility] (DEFAULT)[address] [place] [address] Micro? Not Indicated Invalid Interpretation Code [facility] Comment on above: Order Comment: morfin insert Performed By: #### 7 267246, [id number], [id number], [id number] ####[facility] (DEFAULT)[address] [place] [address] UA Bilirubin Negative [facility] Comment on above: Order Comment: morfin insert Performed By: #### 7 269830, [id number], [id number], [id number] ####[facility] (DEFAULT)[address] [place] [address] UA Blood Negative Normal [facility] Comment on above: Order Comment: morfin insert Performed By: #### 7 253238, 82091339, [id number], [id number] ####[facility] (DEFAULT)[address] [place] [address] UA Clarity CLEAR Normal CLEAR [facility] Comment on above: Order Comment: morfin insert Performed By: #### 7 798957, 67245188, [id number], 4704926 ####[facility] (DEFAULT)[address] [place] [address] UA Leuk Est Negative Normal NEGATIVE [facility] Comment on above: Order Comment: morfin insert Performed By: #### 7 588290, 34788085, [id number], 7546905 ####[facility] (DEFAULT)[address] [place] [address] UA Nitrite Negative Normal NEGATIVE [facility] Comment on above: Order Comment: morfin insert Performed By: #### 7 134090, 65128914, [id number], 5067572 ####[facility] (DEFAULT)[address] [place] [address] UA pH 5.5 Invalid Interpretation Code 5-8 [facility] Comment on above: Order Comment: morfin insert Performed By: #### 7 412461, [id number], [id number], [id number] ####[facility] (DEFAULT)[address] [place] [address] UA Protein Negative Normal NEGATIVE [facility] Comment on above: Order Comment: morfin insert Performed By: #### 7 787047, 04001466, [id number], 8250930 ####[facility] (DEFAULT)[address] [place] [address] UA Spec Grav <=1.005 Invalid Interpretation Code 1.001-1.[address] [place] [address] Comment on above: Order Comment: morfin insert Performed By: #### 7 290650, 22521635, [id number], 4185213 ####[facility] (DEFAULT)[address] [place] [address] UA Urobilinogen 0.2 mg/dL Normal 0.2-1.0 [facility] Comment on above: Order Comment: morfin insert Performed By: #### 7 009191, [id number], [id number], 3488538 ####[facility] (DEFAULT)[address] [place] [address] 70003 Urine Source Morfin Catheter Normal [facility] Comment on above: Order Comment: morfin insert Performed By: #### 7 551639, [id number], [id number], 9566714 ####[facility] (DEFAULT)[address] [place] [address] Urine, color STRAW Invalid Interpretation Code [facility] Comment on above: Order Comment: morfin insert Performed By: #### 7 533817, 67063552, [id number], 6003035 ####[facility] (DEFAULT)[address] [place] [address] 17372 Urine, glucose Negative Invalid Interpretation Code [facility] Comment on above: Order Comment: morfin insert Performed By: #### 7 995719, 34125285, [id number], 8779696 ####[facility] (DEFAULT)[address] [place] [address] 70459 Urine, ketones presence Negative Invalid Interpretation Code [facility] Comment on above: Order Comment: morfin insert Performed By: #### 7 181846, [id number], [id number], 6021249 ####[facility] (DEFAULT)[address] [place] [address] 55546 XR Knee One or Two Views Rig [...] UNREMARKABLE POST ARTHROPLASTY APPEARANCE OF THE RIGHT KNEE.VÍCTOR Amato #: [id number]: 12/13/2017T: 12/13/2017 Final Dictated by: Austin Gonzalez MD SDictated DT/TM: 12/13/17 10:35Signed (Electronic Signature): Austin Gonzalez MD 12/13/17 1:37 pmTechnologist: Latricia LINO Normal [facility] ABORhon 12-12-2017 ABORh Hx Check: Not Found Anti-A: 4+ Anti-B: 0 Anti-D: 4+ DCon: NT A1: 0 B: 4+ ABORh Interp: A POS Invalid Interpretation Code [facility] Comment on above: Performed By: #### 7 707861, [id number], [id number], [id number] ####[facility] (DEFAULT)[address] [place] [address] ABORh Retypeon 12-12-2017 ABORh Retype Ordered by Discern. Anti-A: 4+ Anti-B: 0 Anti-D: 4+ DCon: NT A1: 0 B: 4+ ABORh Retype: A POS Invalid Interpretation Code [facility] Comment on above: Performed By: #### 7 704595, 49071219, [id number], [id number] ####[facility] (DEFAULT)[address] [place] [address] ABSC Gelon 12-12-2017 ABSC Gel Negative [facility] Comment on above: Performed By: #### 7 095271, 12189071, [id number], 7666913 ####[facility] (DEFAULT)[address] [place] [address] Blood Bank IDon 12-12-2017 Blood Bank ID BBID: [id number] Invalid Interpretation Code [facility] Comment on above: Performed By: #### 7 850832, [id number], [id number], [id number] ####[facility] (DEFAULT)[address] [place] [address] Extra Dima 12-12-2017 Tube Collected Yes Invalid Interpretation Code [facility] Comment on above: Performed By: #### 7 020510, [id number], [id number], 1501506 ####[facility] (DEFAULT)[address] [place] [address] Progress Note - Nurseon 11-15 Progress Note - Nurse Preop call completed, patient arriving at 0600, preop instructions reviewed with patient[Electronically Signed on: 12/10/2017 09:46 EDT] Anne Clayton RN[Verified on: 12/10/2017 09:46 EDT] Anne Clayton RN [facility] Coding Summaryon 12-02-2017 Coding Summary CODING DATE: 018 [facility] STATUS: Home 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: Commercial Insurance [employer] DESCRIPTION [...] Dania Sanchez Date Saved: 12/02/2017 12:44 pm [facility] Provider Orderson 12-02-2017 Provider Orders [id number] Advance Directive Documentso n 11-29-2017 Advance Directive Documents [id number] Advance Directive Documents [id number] C MRSA Screenon 11-27-2017 C MRSA Screen Negative [facility] Comment on above: Performed By: #### 1 [id number] ####[facility] (DEFAULT)[address] [place] [address] 78777 .Auto Diff 1on 11-26-2017 Auto Baso % 0.9 % Normal 0.2-2.0 [facility] Comment on above: Performed By: #### 7 529020, 50192353, [id number], 7223196 ####[facility] (DEFAULT)[address] [place] [address] 11157 Auto [place] % 7 % Normal -12 [facility] Comment on above: Performed By: #### 7 646984, 84809071, [id number], 6697762 ####[facility] (DEFAULT)[address] [place] [address] Auto Neut % 53 % Normal 44-88 [facility] Comment on above: Performed By: #### 7 391207, 50847965, [id number], 4876858 ####[facility] (DEFAULT)[address] [place] [address] Baso Abs# 0.1 x10 Normal 0.0-0.2 [facility] Comment on above: Performed By: #### 7 416265, 50539845, [id number], 0495068 ####[facility] (DEFAULT)[address] [place] [address] Eos Abs# 0.2 x10 Normal 0.0-0.4 [facility] Comment on above: Performed By: #### 7 980923, 24809982, [id number], 3530135 ####[facility] (DEFAULT)[address] [place] [address] Eosinophils/100 leukocytes 2.7 % Normal 0.9-4.0 [facility] Comment on above: Performed By: #### 7 391505, 73810507, 6416612071, 2049613 ####[facility] (DEFAULT)[address] [place] [address] Lymphocytes 2.4 x10 Normal 1.3-2.9 [facility] Comment on above: Performed By: #### 7 012187, 23775762, [id number], 8339343 ####[facility] (DEFAULT)[address] [place] [address] Lymphocytes/100 leukocytes 36 % Normal 14-48 [facility] Comment on above: Performed By: #### 7 432206, 30565450, 2346275396, 3656535 ####[facility] (DEFAULT)[address] [place] [address] [place] Abs# 0.5 x10 Normal 0.0-0.8 [facility] Comment on above: Performed By: #### 7 157674, 85098142, 9831232411, 5490419 ####[facility] (DEFAULT)[address] [place] [address] Neut Abs# 3.6 x10 Normal 1.5-9.2 [facility] Comment on above: Performed By: #### 7 312569, 12277140, 8227132477, 4239742 ####[facility] (DEFAULT)[address] [place] [address] CBC w/ Auto Diffon 8 Erythrocyte distribution width Auto Ratio (RBC) 14.6 % Normal 11.5-15.0 [facility] Comment on above: Performed By: #### 7 743951, 59796802, 3655999098, 2358479 ####[facility] (DEFAULT)[address] [place] [address] Erythrocytes (RBC) 4.87 x10 Normal 3.70-5.30 [facility] Comment on above: Performed By: #### 7 389962, 74936030, 6912842746, 0925276 ####[facility] (DEFAULT)[address] [place] [address] Hematocrit (HCT) 40.4 % Normal 33.7-40.4 [facility] Comment on above: Performed By: #### 7 541145, 51537871, 1417667965, 7018158 ####[facility] (DEFAULT)[address] [place] [address] Hemoglobin mass conc (Bld) 12.9 g/dL Normal 11.3-15.9 [facility] Comment on above: Performed By: #### 7 900640, 19084405, 6163248399, 7818563 ####[facility] (DEFAULT)[address] [place] [address] Man Diff? Auto Normal [facility] Comment on above: Performed By: #### 7 972917, 06801372, [id number], 4740701 ####[facility] (DEFAULT)[address] [place] [address] MCH 26 pg Normal 24-34 [facility] Comment on above: Performed By: #### 7 390028, 24896696, 9999708952, 2174191 ####[facility] (DEFAULT)[address] [place] [address] MCHC mass conc (RBC) 32 g/dL Normal 26-37 [facility] Comment on above: Performed By: #### 7 808079, 89316867, 4133119282, 4641824 ####[facility] (DEFAULT)[address] [place] [address] MCV 83 fL Normal 81-100 [facility] Comment on above: Performed By: #### 7 401043, 74684062, 8376841139, 4279507 ####[facility] (DEFAULT)[address] [place] [address] Platelet mean volume (PMV) 11.2 fL High 6.3-10.2 [facility] Comment on above: Performed By: #### 7 402724, 59680665, 4147452486, 3216766 ####[facility] (DEFAULT)[address] [place] [address] Platelets 236 x10 Normal 138-427 [facility] Comment on above: Performed By: #### 7 063601, 76487567, 5568397595, 0478066 ####[facility] (DEFAULT)[address] [place] [address] WBC (Leukocytes) 6.7 x10 Normal 3.5-10.5 [facility] Comment on above: Performed By: #### 7 414878, 69325175, 4234726674, 8319302 ####[facility] (DEFAULT)[address] [place] [address] CMP Standardon 11-26-2017 eGFR (non-black) mL/min/{1.73_m2} Invalid Interpretation Code [facility] Comment on above: Performed By: #### 7 932222, 91636023, 0914767775, 9479357 ####[facility] (DEFAULT)[address] [place] [address] eGFR (non-black) mL/min/{1.73_m2} Invalid Interpretation Code [facility] Comment on above: Result Comment: [employer] [place] Kidney disease could be indicated at eGFRs of less than 60 ml/min/1.73m2. Kidney Failure is indicated at less than 15 ml/min/1.73m2 Performed By: #### 7 379433, 58108940, [id number], 5177788 ####[facility] (DEFAULT)[address] [place] [address] Albumin 4.2 g/dL Normal 3.5-5.0 [facility] Comment on above: Performed By: #### 7 256773, 31729269, 0386171707, 3637854 ####[facility] (DEFAULT)[address] [place] [address] Albumin/Globulin Ratio 1.2 {ratio} Low 1.4-2.6 [facility] Comment on above: Performed By: #### 7 440779, 54457730, 7660663311, 4995695 ####[facility] (DEFAULT)[address] [place] [address] 52102 Alk Phos 64 IU/L Normal 32-91 [facility] Comment on above: Performed By: #### 7 545579, 44444359, 3406812870, 4821655 ####[facility] (DEFAULT)[address] [place] [address] 64984 ALT/SGPT 15.0 IU/L Normal 14.0-54.0 [facility] Comment on above: Performed By: #### 7 009014, 17746100, 9938762049, 0057789 ####[facility] (DEFAULT)[address] [place] [address] 66008 Anion gap 10.0 mmol/L Normal 5.0-19.0 [facility] Comment on above: Performed By: #### 7 617297, 51948174, 0350411169, 6498917 ####[facility] (DEFAULT)[address] [place] [address] 98373 AST/SGOT 19 IU/L Normal 15-41 [facility] Comment on above: Performed By: #### 7 398766, 01812096, [id number], 9738583 ####[facility] (DEFAULT)[address] [place] [address] 59786 Bili Total 0.3 mg/dL Normal 0.3-1.2 [facility] Comment on above: Performed By: #### 7 833483, 37270091, 5985023373, 8791041 ####[facility] (DEFAULT)[address] [place] [address] BUN/Creatinine Ratio 28.0 mg/mg High 4.6-16.2 [facility] Comment on above: Performed By: #### 7 302775, 09229962, 3362138017, 2038413 ####[facility] (DEFAULT)[address] [place] [address] 89854 Calcium 9.6 mg/dL Normal 8.9-10.3 [facility] Comment on above: Performed By: #### 7 486243, 72220053, 2848543941, 5141632 ####[facility] (DEFAULT)[address] [place] [address] Chloride 105 mmol/L Normal 101-111 [facility] Comment on above: Performed By: #### 7 364173, 74236797, 9296523903, 2477338 ####[facility] (DEFAULT)[address] [place] [address] 81081 CO2 29 mmol/L Normal 21-32 [facility] Comment on above: Performed By: #### 7 821736, 12541540, 3558115826, 3913741 ####[facility] (DEFAULT)[address] [place] [address] 68823 Creatinine 0.64 mg/dL Normal 0.60-1.30 [facility] Comment on above: Performed By: #### 7 742656, 91486033, 8185241194, 9806519 ####[facility] (DEFAULT)[address] [place] [address] 32053 Globulin 3.4 g/dL Normal 1.5-4.3 [facility] Comment on above: Performed By: #### 7 291522, 93716946, 5611679777, 5931779 ####[facility] (DEFAULT)[address] [place] [address] 15019 Glucose mass conc 96.0 mg/dL Normal 74.0-118.0 [facility] Comment on above: Performed By: #### 7 144978, 53218727, 1815984042, 6631037 ####[facility] (DEFAULT)[address] [place] [address] Osmolality 281 mOsm/L Invalid Interpretation Code [facility] Comment on above: Performed By: #### 7 981853, 63793352, 4079579504, 7065118 ####[facility] (DEFAULT)[address] [place] [address] Potassium molar conc 4.3 mmol/L Normal 3.6-5.1 [facility] Comment on above: Performed By: #### 7 536657, 92373180, 6854149447, 0586802 ####[facility] (DEFAULT)[address] [place] [address] Protein 7.6 g/dL Normal 6.5-8.1 [facility] Comment on above: Performed By: #### 7 097810, 59815632, 3903311946, 9330599 ####[facility] (DEFAULT)[address] [place] [address] Sodium 140.0 mmol/L Normal 136.0-144. 0 [facility] Comment on above: Performed By: #### 7 421032, 98600323, 2462245954, 7320409 ####[facility] (DEFAULT)[address] [place] [address] Urea nitrogen 18 mg/dL Normal 8-26 [facility] Comment on above: Performed By: #### 7 062000, 80980171, 0848760344, 6460754 ####[facility] (DEFAULT)[address] [place] [address] 43246 PT/PTTon 11-26-2017 aPTT 27 second(s) Normal 25-35 [facility] Comment on above: Performed By: #### 7 258345, 99186814, 1372492306, 7979887 ####[facility] (DEFAULT)[address] [place] [address] 62168 INR Coag RelTime (PPP) 1.01 {INR} Normal 0.91-1.11 [facility] Comment on above: Performed By: #### 7 354947, 01999431, 6084540050, 8398734 ####[facility] (DEFAULT)[address] [place] [address] Prothrombin time (PT) Coag time (PPP) 10.5 second(s) Normal 9.7-11.8 [facility] Comment on above: Performed By: #### 7 169997, 44025168, 2059502639, 4865636 ####[facility] (DEFAULT)[address] [place] [address] UA w Culture if Ind Standard on 11-26-2017 Breakpoint UA Normal [facility] Comment on above: Performed By: #### 1 [id number] ####[facility] (DEFAULT)[address] [place] [address] Culture? Not Indicated Invalid Interpretation Code [facility] Comment on above: Performed By: #### 1 [id number] ####[facility] (DEFAULT)[address] [place] [address] Micro? Not Indicated Invalid Interpretation Code [facility] Comment on above: Performed By: #### 1 [id number] ####[facility] (DEFAULT)[address] [place] [address] UA Bilirubin Negative Normal [facility] Comment on above: Performed By: #### 1 [id number] ####[facility] (DEFAULT)[address] [place] [address] UA Blood Negative Normal NEGATIVE [facility] Comment on above: Performed By: #### 1 [id number] ####[facility] (DEFAULT)[address] [place] [address] UA Clarity CLEAR Normal CLEAR [facility] Comment on above: Performed By: #### 1 [id number] ####[facility] (DEFAULT)[address] [place] [address] UA Leuk Est Negative Normal NEGATIVE [facility] Comment on above: Performed By: #### 1 [id number] ####[facility] (DEFAULT)[address] [place] [address] UA Nitrite Negative Normal NEGATIVE [facility] Comment on above: Performed By: #### 1 [id number] ####[facility] (DEFAULT)[address] [place] [address] 26927 UA pH 6.5 Invalid Interpretation Code 5-8 [facility] Comment on above: Performed By: #### 1 [id number] ####[facility] (DEFAULT)[address] [place] [address] 76872 UA Protein Negative Normal NEGATIVE [facility] Comment on above: Performed By: #### 1 [id number] ####[facility] (DEFAULT)[address] [place] [address] 73525 UA Spec Grav 1.015 Invalid Interpretation Code 1.001-1.[address] [place] [address] Comment on above: Performed By: #### 1 [id number] ####[facility] (DEFAULT)[address] [place] [address] 37325 UA Urobilinogen 0.2 mg/dL Normal 0.2-1.0 [facility] Comment on above: Performed By: #### 1 [id number] ####[facility] (DEFAULT)[address] [place] [address] 74616 Urine Source Clean Catch Normal [facility] Comment on above: Performed By: #### 1 [id number] ####[facility] (DEFAULT)[address] [place] [address] 61431 Urine, color YELLOW Invalid Interpretation Code [facility] Comment on above: Performed By: #### 1 [id number] ####[facility] (DEFAULT)[address] [place] [address] 20495 Urine, glucose Negative Invalid Interpretation Code [facility] Comment on above: Performed By: #### 1 [id number] ####[facility] (DEFAULT)[address] [place] [address] 00498 Urine, ketones presence Negative Invalid Interpretation Code [facility] Comment on above: Performed By: #### 1 [id number] ####[facility] (DEFAULT)[address] [place] [address] 59080 Vital Signs Date Time Vital Sign Value Performing Clinician Facility 02-15-2024 09:00-0400 Diastolic blood pressure 72 mm[Hg] MD Cuauhtemoc Ly Work Phone: [facility] 02-15-2024 09:00-0400 Heart rate 63 /min MD Cuauhtemoc Ly Work Phone: [facility] 02-15-2024 09:00-0400 Respiratory rate 16 /min MD Cuauhtemoc Ly Work Phone: [facility] 02-15-2024 09:00-0400 SaO2% (BldA) [Mass fraction] 98 % MD Cuauhtemoc Ly Work Phone: [facility] 02-15-2024 09:00-0400 Systolic blood pressure 114 mm[Hg] MD Cuauhtemoc Ly Work Phone: [facility] 02-15-2024 07:18-0400 Body height 160.02 cm MD Cuauhtemoc Ly Work Phone: [facility] 02-15-2024 07:18-0400 Body weight 92.07 kg MD Cuauhtemoc Ly Work Phone: [facility] 01-06-2024 09:22-0400 Body height 160.02 cm [facility] 01-06-2024 09:22-0400 Body mass index (BMI) [Ratio] 36.3 kg/m2 [facility] 01-06-2024 09:22-0400 Body weight 92.98 kg [facility] 12-08-2023 09:33-0400 Body height 160 cm Braulio Garay MD Work Phone: [facility] 12-08-2023 09:33-0400 Body mass index (BMI) [Ratio] 35.61 kg/m2 Braulio Garay MD Work Phone: [facility] 12-08-2023 09:33-0400 Body weight 91.17 kg Braulio Garay MD Work Phone: [facility] 11-11-2023 09:55-0400 Blood Pressure Location Milka Herrera [facility] 11-11-2023 09:55-0400 Diastolic blood pressure 72 mm[Hg] Jarquin Sarmini [facility] 11-11-2023 09:55-0400 Heart rate 57 /min Jarquin Sarmini [facility] 11-11-2023 09:55-0400 Respiratory rate 17 /min Jarquin Sarmini [facility] 11-11-2023 09:55-0400 SaO2% (BldA) [Mass fraction] 98 % Jarquin Sarmini [facility] 11-11-2023 09:55-0400 Systolic blood pressure 115 mm[Hg] Jarquin Sarmini [facility] 11-11-2023 09:40-0400 Blood Pressure Location Jarquin Sarmini [facility] 11-11-2023 09:40-0400 Diastolic blood pressure 78 mm[Hg] Jarquin Sarmini [facility] 11-11-2023 09:40-0400 Heart rate 73 /min Jarquin Sarmini [facility] [facility] 11-11-2023 09:40-0400 Respiratory rate 20 /min Jarquin Sarmini [facility] 11-11-2023 09:40-0400 SaO2% (BldA) [Mass fraction] 95 % Jarquin Sarmini [facility] 11-11-2023 09:40-0400 Systolic blood pressure 106 mm[Hg] Jarquin Sarmini [facility] 11-11-2023 09:35-0400 Blood Pressure Location Jarquin Sarmini [facility] 11-11-2023 09:35-0400 Diastolic blood pressure 74 mm[Hg] Jarquin Sarmini [facility] 11-11-2023 09:35-0400 Heart rate 56 /min Jarquin Sarmini [facility] 11-11-2023 09:35-0400 Respiratory rate 16 /min Jarquin Sarmini [facility] 11-11-2023 09:35-0400 SaO2% (BldA) [Mass fraction] 97 % Jarquin Sarmini [facility] 11-11-2023 09:35-0400 Systolic blood pressure 115 mm[Hg] Jarquin Sarmini [facility] 11-11-2023 09:27-0400 Body temperature 97.7 [degF] Jarquin Sarmini [facility] 11-11-2023 09:20-0400 Respiratory rate 18 /min Jarquin Sarmini [facility] 11-11-2023 09:15-0400 Respiratory rate 23 /min Jarquin Sarmini [facility] 11-11-2023 09:10-0400 Respiratory rate 22 /min Jarquin Sarmini [facility] 11-11-2023 08:04-0400 Body temperature 97.34 [degF] Jarquin Sarmini [facility] 08-27-2023 08:36-0500 Blood Pressure Location Noris Solomon [facility] 08-27-2023 08:36-0500 Body temperature 96.8 [degF] Noris Solomon [facility] 08-27-2023 08:36-0500 Diastolic blood pressure 59 mm[Hg] Noris Solomon [facility] 08-27-2023 08:36-0500 Heart rate 61 /min Noris Solomon [facility] 08-27-2023 08:36-0500 Systolic blood pressure 114 mm[Hg] Noris Solomon [facility] 08-19-2023 11:56-0500 Body height 160 cm Roni Amaya APRN-UPKEEP WORKER Work Phone: [employer] [facility] 08-19-2023 11:56-0500 Body mass index (BMI) [Ratio] 35.61 kg/m2 Roni Amaya APRN-UPKEEP WORKER Work Phone: [employer] [facility] 08-19-2023 11:56-0500 Body weight 91.17 kg Roni Jose Luisskyler ANDINON-UPKEEP WORKER Work Phone: [employer] 07-27-2023 13:30-0500 Diastolic blood pressure 56 mm[Hg] Braulio Garay MD Work Phone: [employer] [facility] 07-27-2023 13:30-0500 Systolic blood pressure 118 mm[Hg] Braulio Garay MD Work Phone: [employer] [facility] 07-27-2023 11:19-0500 Body temperature 97.7 [degF] Braulio Garay MD Work Phone: [employer] 07-27-2023 11:19-0500 Heart rate 50 /min Braulio Garay MD Work Phone: [employer] [facility] 07-27-2023 11:19-0500 Respiratory rate 16 /min Braulio Garay MD Work Phone: [employer] 07-27-2023 11:19-0500 SaO2% (BldA) [Mass fraction] 94 % Braulio Garay MD Work Phone: [facility] 07-26-2023 10:28-0500 Body height 160 cm Braulio Garay MD Work Phone: [facility] 07-26-2023 10:28-0500 Body mass index (BMI) [Ratio] 34.12 kg/m2 Braulio Garay MD Work Phone: [facility] 07-26-2023 10:28-0500 Body weight 87.36 kg Braulio Garay MD Work Phone: [facility] 07-23-2023 08:52-0500 Diastolic blood pressure 71 mm[Hg] Louise Owusu [facility] 07-23-2023 08:52-0500 Heart rate 63 /min Louise Owusu [facility] 07-23-2023 08:52-0500 Mean blood pressure 87 mm[Hg] Louise Owusu [facility] 07-23-2023 08:52-0500 Respiratory rate 14 /min Louise Owusu [facility] 07-23-2023 08:52-0500 Systolic blood pressure 119 mm[Hg] Louise Owusu [facility] 06-30-2023 10:28-0500 Heart rate 47 /min Juwan Mendez [facility] 06-30-2023 10:28-0500 SaO2% (BldA) [Mass fraction] 98 % Juwan Mendez [facility] 06-30-2023 10:28-0500 Diastolic blood pressure 80 mm[Hg] Juwan Mendez [facility] 06-30-2023 10:28-0500 Mean blood pressure 103 mm[Hg] Juwan Menedz [facility] 06-30-2023 10:28-0500 Systolic blood pressure 150 mm[Hg] Juwan Mendez [facility] 06-30-2023 10:27-0500 Respiratory rate 16 /min Echeverria Andrea [facility] 06-30-2023 10:20-0500 Diastolic blood pressure 74 mm[Hg] Juwan Mendez [facility] 06-30-2023 10:20-0500 Heart rate 58 /min Juwan Mendez [facility] 06-30-2023 10:20-0500 SaO2% (BldA) [Mass fraction] 97 % Juwan Mendez [facility] 06-30-2023 10:20-0500 Systolic blood pressure 123 mm[Hg] Echeverria Andrea [facility] 06-30-2023 08:10-0500 Heart rate 48 /min Echeverria Andrea [facility] 06-30-2023 08:10-0500 SaO2% (BldA) [Mass fraction] 98 % Juwan Mendez [facility] 06-30-2023 08:09-0500 Diastolic blood pressure 73 mm[Hg] Echeverria Andrea [facility] 06-30-2023 08:09-0500 Mean blood pressure 88 mm[Hg] Juwan Mendez [facility] 06-30-2023 08:09-0500 Systolic blood pressure 119 mm[Hg] Juwan Mendez [facility] 06-30-2023 08:09-0500 Body temperature 98.06 [degF] Juwan Mendez [facility] 06-30-2023 08:03-0500 Respiratory rate 14 /min Juwan Mendez [facility] 06-10-2023 07:55-0400 Diastolic blood pressure 61 mm[Hg] Juwan Mendez [facility] 06-10-2023 07:55-0400 Heart rate 48 /min Juwan Mendez [facility] 06-10-2023 07:55-0400 Mean blood pressure 79 mm[Hg] Juwan Mendez [facility] 06-10-2023 07:55-0400 Respiratory rate 16 /min Juwan Mendez [facility] 06-10-2023 07:55-0400 Systolic blood pressure 115 mm[Hg] Echeverria Andrea [facility] 05-06-2023 08:38-0400 Body height 160 cm Braulio Garay MD Work Phone: [facility] 05-06-2023 08:38-0400 Body mass index (BMI) [Ratio] 35.68 kg/m2 Braulio Garay MD Work Phone: [facility] 05-06-2023 08:38-0400 Body temperature 96.69 [degF] Braulio Garay MD Work Phone: [facility] 05-06-2023 08:38-0400 Body weight 91.35 kg Braulio Garay MD Work Phone: [facility] 04-28-2023 13:05-0400 Diastolic blood pressure 66 mm[Hg] Juwan Mendez [facility] 04-28-2023 13:05-0400 Heart rate 60 /min Echeverria Andrea [facility] 04-28-2023 13:05-0400 Mean blood pressure 84 mm[Hg] Juwan Mendez [facility] 04-28-2023 13:05-0400 Respiratory rate 14 /min Juwan Mendez [facility] 04-28-2023 13:05-0400 Systolic blood pressure 119 mm[Hg] Juwan Mendez [facility] 04-02-2023 09:34-0400 Diastolic blood pressure 66 mm[Hg] Louise Owusu [facility] 04-02-2023 09:34-0400 Heart rate 44 /min Louise Owusu [facility] 04-02-2023 09:34-0400 Respiratory rate 14 /min Louise Owusu [facility] 04-02-2023 09:34-0400 Systolic blood pressure 131 mm[Hg] Louisekia Owusu [facility] 03-03-2023 14:55-0400 Body height 160 cm Braulio Garay MD Work Phone: [facility] 03-03-2023 14:55-0400 Body mass index (BMI) [Ratio] 38.44 kg/m2 Braulio Garay MD Work Phone: [facility] 03-03-2023 14:55-0400 Body temperature 97 [degF] Braulio Garay MD Work Phone: [facility] 03-03-2023 14:55-0400 Body weight 98.43 kg Braulio Garay MD Work Phone: [facility] 02-19-2023 10:44-0400 Diastolic blood pressure 87 mm[Hg] Louise Owusu [facility] 02-19-2023 10:44-0400 Heart rate 49 /min Louise Owusu [facility] 02-19-2023 10:44-0400 Mean blood pressure 114 mm[Hg] Louise Owusu [facility] 02-19-2023 10:44-0400 Respiratory rate 16 /min Louise Owusu [facility] 02-19-2023 10:44-0400 Systolic blood pressure 169 mm[Hg] Louise Owusu [facility] 01-20-2023 12:00-0400 Heart rate 58 /min Garrett Zumbar [facility] 01-20-2023 12:00-0400 SaO2% (BldA) [Mass fraction] 96 % Garrett Zumbar [facility] 01-20-2023 12:00-0400 Diastolic blood pressure 71 mm[Hg] Garrett Zumbar [facility] 01-20-2023 12:00-0400 Mean blood pressure 93 mm[Hg] Garrett Zumbar [facility] 01-20-2023 12:00-0400 Systolic blood pressure 138 mm[Hg] Garrett Zumbar [facility] 01-20-2023 11:55-0400 Diastolic blood pressure 94 mm[Hg] Garrett Zumbar [facility] 01-20-2023 11:55-0400 Heart rate 61 /min Garrett Zumbar [facility] 01-20-2023 11:55-0400 Respiratory rate 18 /min Garrett Zumbar [facility] 01-20-2023 11:55-0400 SaO2% (BldA) [Mass fraction] 99 % Garrett Zumbar [facility] 01-20-2023 11:55-0400 Systolic blood pressure 164 mm[Hg] Garrett Zumbar [facility] 01-20-2023 11:05-0400 Heart rate 53 /min Garrett Zumbar [facility] 01-20-2023 11:05-0400 SaO2% (BldA) [Mass fraction] 97 % Garrett Zumbar [facility] 01-20-2023 11:05-0400 Respiratory rate 18 /min Garrett Zumbar [facility] 01-20-2023 11:05-0400 Body temperature 98.06 [degF] Garrett Zumbar [facility] 01-20-2023 11:05-0400 Diastolic blood pressure 85 mm[Hg] Garrett Zumbar [facility] 01-20-2023 11:05-0400 Mean blood pressure 110 mm[Hg] Garrett Zumbar [facility] 01-20-2023 11:05-0400 Systolic blood pressure 159 mm[Hg] Garrett Zumbar [facility] 12-17-2022 10:19-0400 Diastolic blood pressure 72 mm[Hg] Garrett Zumbar [facility] 12-17-2022 10:19-0400 Heart rate 59 /min Garrett Zumbar [facility] 12-17-2022 10:19-0400 Mean blood pressure 94 mm[Hg] Garrett Zumbar [facility] 12-17-2022 10:19-0400 Systolic blood pressure 138 mm[Hg] Garrett Zumbar [facility] 11-18-2022 13:18-0400 Heart rate 67 /min Garrett Zumbar [facility] 11-18-2022 13:18-0400 SaO2% (BldA) [Mass fraction] 99 % Garrett Zumbar [facility] 11-18-2022 13:18-0400 Diastolic blood pressure 77 mm[Hg] Garrett Zumbar [facility] 11-18-2022 13:18-0400 Mean blood pressure 104 mm[Hg] Garrett Zumbar [facility] 11-18-2022 13:18-0400 Systolic blood pressure 157 mm[Hg] Garrett Zumbar [facility] 11-18-2022 13:11-0400 Diastolic blood pressure 87 mm[Hg] Garrett Zumbar [facility] 11-18-2022 13:11-0400 Heart rate 72 /min Garrett Zumbar [facility] 11-18-2022 13:11-0400 Respiratory rate 14 /min Garrett Zumbar [facility] 11-18-2022 13:11-0400 SaO2% (BldA) [Mass fraction] 98 % Garrett Zumbar [facility] 11-18-2022 13:11-0400 Systolic blood pressure 144 mm[Hg] Garrett Zumbar [facility] 11-18-2022 12:20-0400 Heart rate 58 /min Garrett Zumbar [facility] 11-18-2022 12:20-0400 SaO2% (BldA) [Mass fraction] 98 % Garrett Zumbar [facility] 11-18-2022 12:20-0400 Diastolic blood pressure 73 mm[Hg] Garrett Zumbar [facility] 11-18-2022 12:20-0400 Mean blood pressure 98 mm[Hg] Garrett Zumbar [facility] 11-18-2022 12:20-0400 Systolic blood pressure 148 mm[Hg] Garrett Zumbar [facility] 11-18-2022 12:20-0400 Body temperature 98.06 [degF] Garrett Zumbar [facility] 11-18-2022 12:19-0400 Respiratory rate 12 /min Garrett Zumbar [facility] 11-11-2022 14:31-0400 Diastolic blood pressure 63 mm[Hg] Garrett Zumbar [facility] 11-11-2022 14:31-0400 Heart rate 66 /min Garrett Zumbar [facility] 11-11-2022 14:31-0400 Mean blood pressure 88 mm[Hg] Garrett Zumbar [facility] 11-11-2022 14:31-0400 Respiratory rate 14 /min Garrett Zumbar [facility] 11-11-2022 14:31-0400 Systolic blood pressure 137 mm[Hg] Garrett Zumbar [facility] 11-05-2022 09:43-0400 Diastolic blood pressure 73 mm[Hg] Garrett Zumbar [facility] 11-05-2022 09:43-0400 Heart rate 53 /min Garrett Zumbar [facility] 11-05-2022 09:43-0400 Mean blood pressure 95 mm[Hg] Garrett Zumbar [facility] 11-05-2022 09:43-0400 Respiratory rate 12 /min Garrett Zumbar [facility] 11-05-2022 09:43-0400 Systolic blood pressure 138 mm[Hg] Garrett Zumbar [facility] 10-20-2022 10:40-0500 Body height 160.02 cm Layne Justice Other [employer] Other 10-20-2022 10:40-0500 Body mass index (BMI) [Ratio] 37.9 kg/m2 Layne Justice [employer] Other 10-20-2022 10:40-0500 Body weight 97.07 kg Layne Justice Other [employer] Other 10-20-2022 10:40-0500 Diastolic blood pressure 80 mm[Hg] Layne Justice Other [employer] Other 10-20-2022 10:40-0500 Systolic blood pressure 114 mm[Hg] Layne Justice Other [employer] Other 07-15-2022 10:05-0500 Body height 160 cm Braulio Garay MD Work Phone: [employer] 07-15-2022 10:05-0500 Body mass index (BMI) [Ratio] 37.73 kg/m2 Brauilo Garay MD Work Phone: [employer] 07-15-2022 10:05-0500 Body temperature 96.21 [degF] Braulio Garay MD Work Phone: [employer] 07-15-2022 10:05-0500 Body weight 96.62 kg Braulio Garay MD Work Phone: [employer] 06-29-2020 13:38-0500 Pulse Oximetry 97 % Amilcar [employer] [facility] [place] , [place] 06-29-2020 08:34-0500 Body Temperature 99.7 [degF] Amilcar [facility] [place] 06-29-2020 08:34-0500 BP Diastolic 50 mm[Hg] Amilcar [employer] [facility] [place] [facility] [place] 06-29-2020 08:34-0500 BP Systolic 115 mm[Hg] Amilcar [facility] [place] [facility] [place] 06-29-2020 08:34-0500 Pulse (Heart Rate) 90 /min Amilcar Trudy [facility] [place], [place] 06-29-2020 08:34-0500 Respiratory Rate 16 /min Amilcar [facility]ud[facility] [place] 06-28-2020 06:00-0500 BMI (Body Mass Index) 36.31 kg/m2 [facility]car [facility] [place], [place] 06-28-2020 06:00-0500 Body weight 92.99 kg Amilcar [employer] [place] , [place] 06-27-2020 07:25-0500 Height 160 cm Amilcar Trudy [facility] [place] , [place] Encounters Encounter Date Encounter Type Care Provider Facility Start: 02-15-2024 Non-patient / Non-visit MD Dileep Ly Work Phone: [facility] Work Phone: Start: 02-15-2024 End: 02-15-2024 Admission to same day surgery center MD Cuauhtemoc Ly Work Phone: [facility] Work Phone: Start: 02-15-2024 End: 02-15-2024 ambulatory MD Cuauhtemoc Ly Work Phone: [facility] Work Phone: Start: 02-09-2024 End: 02-09-2024 Lab Drop off Rodríguez Rhodes [facility] Start: 02-09-2024 End: 02-09-2024 ambulatory Rodríguez Rhodes Facility:[facility] Start: 02-07-2024 End: 02-07-2024 ambulatory RODRÍGUEZ RHODES Not Available Start: 02-03-2024 End: 02-03-2024 ambulatory RODRÍGUEZ RHODES Not Available Start: 01-31-2024 End: 01-31-2024 ambulatory [facility] Work Phone: Start: 01-31-2024 End: 01-31-2024 Patient encounter procedure [facility] Work Phone: Start: 01-12-2024 End: 01-12-2024 ambulatory GAMALIEL COATES Not Available Start: 01-06-2024 End: 01-06-2024 ambulatory [facility] Work Phone: Start: 01-06-2024 End: 01-06-2024 Patient encounter procedure [facility] Work Phone: Start: 12-08-2023 ambulatory RONI AMAYA [facility] Start: 12-08-2023 End: 12-08-2023 Office outpatient visit 25 minutes Braulio Garay MD Work Phone: [facility] Comment on above: Hx of total knee art hroplasty, left (Primary Dx) Start: 12-08-2023 End: 12-08-2023 Subsequent hospital visit by physician Roni Amaya MECHANICAL INTERN-UPKEEP WORKER Work Phone: [facility] Start: 11-25-2023 End: 11-25-2023 Lab Drop off Jaci L Nathalie [facility] Start: 11-25-2023 End: 11-25-2023 ambulatory Jaci L Nathalie Facility:[facility] Start: 11-11-2023 End: 11-11-2023 ambulatory Jarquin Talal Sarmini Facility:[facility] Start: 11-11-2023 End: 11-11-2023 Patient encounter procedure Jarquin Talal Sarmini [facility] Start: 10-08-2023 End: 10-08-2023 ambulatory MARIANA TAYLOR Not Available Start: 10-06-2023 End: 10-06-2023 ambulatory VIVIANA JADY Not Available Start: 10-04-2023 End: 10-04-2023 ambulatory RUBÉN LAGUNA Not Available Start: 10-01-2023 End: 10-01-2023 ambulatory VIVIANA JADY Not Available Start: 09-29-2023 Bamboo flowsheet Viviana Loyd TITLE SEARCH MANAGER [facility] Start: 09-29-2023 Bamboo flowsheet Viviana Loyd TITLE SEARCH MANAGER [facility] Start: 09-29-2023 End: 09-29-2023 Admission to same day surgery center Viviana Loyd TITLE SEARCH MANAGER [facility] Comment on above: Acute pain of left k nee (Primary Dx); Aftercare following left knee joint replacement surgery; Difficulty walking; Chronic pain of left knee Start: 09-29-2023 End: 09-29-2023 ambulatory Viviana Loyd TITLE SEARCH MANAGER [facility] Start: 09-27-2023 End: 09-27-2023 Admission to same day surgery center Mariana Taylor TITLE SEARCH MANAGER [facility] Comment on above: Acute pain of left k nee (Primary Dx); Aftercare following left knee joint replacement surgery; Difficulty walking; Chronic pain of left knee Start: 09-27-2023 End: 09-27-2023 ambulatory Mariana Taylor TITLE SEARCH MANAGER [facility] Start: 09-24-2023 Telephone encounter Viviana Loyd TITLE SEARCH MANAGER [facility] Comment on above: re: PT today (She ca lled noting still experiencing dizziness and going for bloodwork this morning. She confirmed her next PT on 09/27.) Start: 09-24-2023 End: 09-24-2023 ambulatory Jaci L Nathalie Facility:[facility] Start: 09-24-2023 End: 09-24-2023 Lab Drop off Jaci L Nathalie [facility] Start: 09-23-2023 End: 09-23-2023 Lab Drop off Jaci L Nathalie [facility] Start: 09-23-2023 End: 09-23-2023 ambulatory Jaci L Nathalie Facility:[facility] Start: 09-22-2023 Bamboo flowsheet Viviana Loyd TITLE SEARCH MANAGER [facility] Start: 09-22-2023 Bamboo flowsheet Viviana Loyd TITLE SEARCH MANAGER [facility] Start: 09-22-2023 End: 09-22-2023 ambulatory VIVIANA LYOD Not Available Start: 09-20-2023 Bamboo flowsheet Raman naylor PT Work Phone: [facility] Start: 09-20-2023 Bamboo flowsheet Raman naylor PT Work Phone: [facility] Start: 09-20-2023 End: 09-20-2023 ambulatory RAMAN Latricia OUMOUANTONY Not Available Start: 09-17-2023 Bamboo flowsheet Viviana Loyd TITLE SEARCH MANAGER [facility] Start: 09-17-2023 Bamboo flowsheet Viviana Loyd TITLE SEARCH MANAGER [facility] Start: 09-17-2023 End: 09-17-2023 Admission to same day surgery center Viviana Loyd TITLE SEARCH MANAGER [facility] Comment on above: Acute pain of left k nee (Primary Dx); Aftercare following left knee joint replacement surgery; Difficulty walking; Chronic pain of left knee Start: 09-17-2023 End: 09-17-2023 ambulatory Viviana Loyd TITLE SEARCH MANAGER [facility] Start: 09-15-2023 End: 09-15-2023 ambulatory Jaci Zelaya Facility:[facility] Start: 09-15-2023 End: 09-15-2023 ambulatory VIVIANA KELBLEY Not Available Start: 09-13-2023 End: 09-13-2023 ambulatory MARIANA BRBEATRICE Not Available Start: 09-10-2023 End: 09-10-2023 ambulatory VIVIANA KELBLEY Not Available Start: 09-09-2023 ambulatory [facility] Start: 09-08-2023 End: 09-08-2023 ambulatory VIVIANA KELBLEY Not Available Start: 09-06-2023 End: 09-06-2023 ambulatory MARIANA BRINK Not Available Start: 09-01-2023 End: 09-01-2023 ambulatory VIVIANA KELBLEY Not Available Start: 08-30-2023 End: 08-30-2023 ambulatory RAMANQUENTIN SILVERIO Not Available Start: 08-27-2023 End: 08-27-2023 ambulatory Noris Solomon [facility] Start: 08-27-2023 End: 08-27-2023 Patient encounter procedure Noris Solomon [facility] Start: 08-19-2023 ambulatory RONINunu AMAYA [facility] Start: 08-19-2023 End: 08-19-2023 Postop follow up visit related to original px Roni Amaya MECHANICAL INTERN-UPKEEP WORKER Work Phone: [facility] Comment on above: Hx of total knee art hroplasty, left (Primary Dx) Start: 08-19-2023 End: 08-19-2023 Subsequent hospital visit by physician Roni Amaya APRN-UPKEEP WORKER Work Phone: [facility] Start: 08-03-2023 End: 09-08-2023 Pre-admission assessment Jaci Zelaya [facility] Start: 07-26-2023 End: 07-27-2023 Encounter for other preprocedural examination [facility] Start: 07-26-2023 End: 07-27-2023 Evaluation and management of inpatient [facility] Start: 07-26-2023 End: 07-27-2023 Evaluation and management of inpatient Braulio Garay MD Work Phone: [facility] Comment on above: Status post revision of total replacement of left knee Start: 07-26-2023 End: 07-27-2023 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 Braulio Garay MD Work Phone: [facility] Start: 07-23-2023 End: 07-23-2023 ambulatory Jaci L Nathalie Facility:[facility] Start: 07-23-2023 End: 07-23-2023 Pain Management Louise Owusu [facility] Start: 07-12-2023 End: 07-12-2023 Lab Drop off Jaci L Nathalie [facility] Start: 07-12-2023 End: 07-12-2023 ambulatory Jaci L Nathalie Facility:[facility] Start: 07-01-2023 ambulatory [facility] Start: 06-30-2023 End: 06-30-2023 ambulatory Juwan Mendez Facility:[facility] Start: 06-30-2023 End: 06-30-2023 Pain Management Juwan Mendez [facility] Start: 06-28-2023 ambulatory Noris Solomon Brianai ty:[facility] Start: 06-23-2023 End: 06-23-2023 ambulatory Jaci L Nathalie Facility:[facility] Start: 06-22-2023 End: 06-22-2023 ambulatory Jaci L Nathalie Facility:[facility] Start: 06-10-2023 End: 06-10-2023 ambulatory Jaci L Natahlie Facility:[facility] Start: 06-10-2023 End: 06-10-2023 Pain Management Juwan Mendez [facility] Start: 05-27-2023 ambulatory Louise Owusu Facilit y:[facility] Start: 05-12-2023 End: 05-12-2023 ambulatory Juwan Mendez Facility:[facility] Start: 05-06-2023 ambulatory [facility] Start: 05-06-2023 End: 05-06-2023 Office outpatient visit 40 minutes Braulio Garay MD Work Phone: [facility] Comment on above: Chronic pain of left knee (Primary Dx) Start: 04-28-2023 End: 04-28-2023 ambulatory Jaci L Nathalie Facility:[facility] Start: 04-28-2023 End: 04-28-2023 Pain Management Juwan Mendez [facility] Start: 04-02-2023 End: 04-02-2023 ambulatory Louise Owusu Facility:[facility] Start: 04-02-2023 End: 04-02-2023 Pain Management Louise Owusu [facility] Start: 03-03-2023 ambulatory BRAULIO GARAY [facility] Start: 03-03-2023 End: 03-03-2023 Office outpatient visit 15 minutes Braulio Garay MD Work Phone: [facility] Comment on above: Left knee pain, unsp ecified chronicity (Primary Dx); 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 joint, initial encounter Start: 03-03-2023 End: 03-03-2023 Subsequent hospital visit by physician Braulio Garay MD Work Phone: [facility] Start: 02-19-2023 End: 02-19-2023 ambulatory Louise Owusu Facility:[facility] Start: 02-19-2023 End: 02-19-2023 Pain Management Louise Owusu [facility] Start: 01-20-2023 End: 01-20-2023 Pain Management Garrett Caydenumbar [facility] Start: 12-17-2022 End: 03-26-2023 Pre-admission assessment Garrett Caydenumbar [facility] Start: 12-17-2022 End: 12-17-2022 Pain Management Garrett Zumbar [facility] Start: 11-18-2022 End: 11-18-2022 Pain Management Garrett Zumbar [facility] Start: 11-11-2022 End: 11-11-2022 Pain Management Garrett Zumbar [facility] Start: 11-05-2022 End: 11-05-2022 Patient encounter procedure Garrett Dennison [facility] Start: 11-05-2022 End: 11-05-2022 Pain Management Garrett Dennison [facility] Start: 10-20-2022 End: 10-20-2022 ambulatory Layne Justice Other [facility] [employer] Other Start: 10-20-2022 Office outpatient ne w 30 minutes Layne Justice [facility] Start: 10-16-2022 End: 10-16-2022 ambulatory MD Leon Solares Work Phone: [facility] Work Phone: Start: 10-16-2022 End: 10-16-2022 Patient encounter procedure MD Leon Solares Work Phone: [facility] Work Phone: Start: 09-28-2022 End: 09-29-[address] LOEN SOLARES Facility:[facility] Start: 09-17-2022 End: 09-18-[address] LEON SOLARES Facility:[facility] Start: 09-15-2022 End: 09-16-[address] LEON SOLARES Facility:[facility] Start: 07-15-2022 End: 07-15-2022 Office outpatient new 30 minutes Braulio Garay MD Work Phone: [facility] Comment on above: 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 TRUDY [facility] Start: 06-27-2020 End: 06-29-2020 Evaluation and management of inpatient Amilcar Yates Work Phone: [facility] Comment on above: Post-op pain (Primar y Dx) Start: 06-27-2020 End: 06-29-2020 Subsequent hospital visit by physician Amilcar Yates Work Phone: [facility] Comment on above: Pain Start: 06-20-2020 End: 06-23-2020 Patient encounter procedure ZACHARY BOLES [facility] Start: 06-20-2020 End: 06-22-2020 Subsequent hospital visit by physician Deep Xray Room 8 [facility] Comment on above: Pre-op examination Start: 12-15-2017 End: 12-15-2017 Ambulatory [facility] Facility:[facility] Start: 12-13-2017 End: 12-16-2017 Ambulatory [facility] Facility:[facility] Start: 11-27-2017 End: 12-02-2017 Ambulatory [facility] Facility:[facility] Procedures Date Procedure Procedure Detail Performing Clinician Start: 02-15-2024 Injection of local anesthetic into sacroiliac joint MD Cuauhtemoc Ly Work Phone: Start: 11-11-2023 Colonoscopy Milka waters Start: 07-27-2023 Complete blood count with white cell differential, automated Roni Amaya APRN-UPKEEP WORKER Work Phone: Start: 07-27-2023 Renal function panel Co Ren Weiss MD Work Phone: Start: 07-26-2023 Radiologic examinati on knee 1/2 views Roni Amaya APRN-UPKEEP WORKER Work Phone: Start: 07-26-2023 End: 07-26-2023 Bacterial culture and sensitivity Braulio Garay MD Work Phone: Start: 07-26-2023 End: 07-26-2023 Culture bacterial any source anaerobic iso&id Braulio Garay MD Work Phone: Start: 07-26-2023 Gluc bld gluc mntr d ev cleared fda spec home use Braulio Garay MD Work Phone: Start: 07-26-2023 Blood group typing, RH phenotyping Braulio Garay MD Work Phone: Start: 07-26-2023 Arthroplasty of knee Dorothea kaylan Nathalie Start: 06-30-2023 Injection of nerve r oot of lumbar spine using fluoroscopic guidance ALOHA Comment on above: No relief Start: 05-12-2023 Injection of sacroil iac joint using fluoroscopic guidance Juwan Mendez Comment on above: Left SIJI-50% relief x 2 weeks. Start: 01-20-2023 Injection of sacroil iac joint using fluoroscopic guidance ALOHA Comment on above: Left SIJI-100% x 2 [...] Radex spine lumbosac ral 2/3 views Amilcar Moy. Trudy Work Phone: Start: 06-28-2020 BASIC METABOLIC PANE L W/ REFLEX TO MG FOR LOW K Amilcar H. Trudy Work Phone: Start: 06-28-2020 Blood count complete auto&auto difrntl wbc Amilcar H. Trudy Work Phone: Start: 06-27-2020 BASIC METABOLIC PANE L W/ REFLEX TO MG FOR LOW K Amilcar H. Trudy Work Phone: Start: 06-27-2020 Blood count complete automated Amilcar H. Trudy Work Phone: Start: 06-27-2020 Level iv surg pathol ogy gross&microscopic exam Amilcar H. Trudy Work Phone: Start: 06-27-2020 Fluoroscopy during operation Amilcar H. Trudy Work Phone: Start: 06-27-2020 End: 06-27-2020 Arthrodesis posterior interbody lumbar Amilcar Moy. Trudy Work Phone: Start: 06-20-2020 Radex entir thrc [...] Dennison Start: 08-16-1985 Stripping of vein Alexi Dennison Start: 08-16-1983 Appendectomy Garrett Lakhani Start: 08-16-1983 Cholecystectomy Garrett Dennison Start: 08-16-1957 History of tonsillectomy Garrett Dennison Colonoscopy Noris Solomon Comment on above: [facility] Plan of Treatment Date Care Activity Detail Author Start: 04-13-2024 End: 04-13-2024 Patient encounter procedure 04/13/2024 9:15 AM EDT Office Visit [facility] [address] [place] [address] Cata Morrison MD [address] [place] [address] [facility] Start: 04-10-2024 ambulatory Ambulatory Facility:[facility] Start: 02-15-2024 [facility] Start: 01-06-2024 Patient referral [facility] Work Phone: Start: 12-08-2023 End: 12-08-2023 Patient encounter procedure 12/08/2023 9:20 AM EDT Office Visit [facility] [address] [place] [phone] Braulio Garay MD [address] [place] [phone] [facility] Start: 11-30-2023 End: 11-30-2023 Telemedicine consultation with patient 11/30/2023 9:00 AM EDT Telemedicine [facility] [address] [facility] [address] [place] [id number] Arpan Brock DO [address] [facility] [address] [place] [address] [facility] Start: 10-08-2023 End: 10-08-2023 ambulatory 10/08/2023 8:30 AM EST Treatment [facility] [address] [facility] [address] [place] [address] Mariana Taylor, TITLE SEARCH MANAGER [facility] Start: 10-06-2023 End: 10-06-2023 ambulatory 10/06/2023 7:30 AM EST Treatment [facility] [address] [facility] [address] [place] [address] Viviana Loyd, TITLE SEARCH MANAGER [facility] Start: 10-04-2023 End: 10-04-2023 ambulatory 10/04/2023 7:30 AM EST Treatment [facility] [address] [facility] [address] [place] [address] Rubén Laguna, TITLE SEARCH MANAGER [facility] Start: 10-01-2023 End: 10-01-2023 ambulatory 10/01/2023 7:30 AM EST Treatment [facility] [address] [facility] [address] [place] [phone] Viviana Loyd, TITLE SEARCH MANAGER [facility] Start: 09-29-2023 End: 09-29-2023 ambulatory [facility] Comment on above: Arrived Start: 09-27-2023 End: 09-27-2023 ambulatory 09/27/2023 7:30 AM EST Treatment [facility] [address] [facility] [address] [place] [address] Raman Silverio, PT [address] [facility] [address] [place] [address] [facility] Start: 09-24-2023 End: 09-24-2023 ambulatory 09/24/2023 7:30 AM EST Treatment [facility] [address] [facility] [address] [place] [address] Viviana Loyd, TITLE SEARCH MANAGER [facility] Start: 09-22-2023 End: 09-22-2023 ambulatory 09/22/2023 7:30 AM EST Treatment [facility] [address] [facility] [address] [place] [address] Viviana Loyd, TITLE SEARCH MANAGER [facility] Start: 09-20-2023 End: 09-20-2023 ambulatory 09/20/2023 7:30 AM EST Treatment [facility] [address] [place] [phone] Raman Silverio, PT [address] [place] [address] [facility] Start: 09-17-2023 End: 09-17-2023 ambulatory 09/17/2023 7:30 AM EST Treatment [facility] [address] [place] [phone] Viviana Loyd, TITLE SEARCH MANAGER Arrived [facility] Comment on above: Arrived Start: 09-09-2023 End: 09-09-2023 Patient encounter procedure 09/09/2023 10:00 AM EST Office Visit [facility] [address] [place] [phone] Roni Amaya, MECHANICAL INTERN-UPKEEP WORKER [address] [place] [phone] [facility] Start: 08-19-2023 End: 08-19-2023 Patient encounter procedure 08/19/2023 11:40 AM EST Office Visit [facility] [address] [place] [phone] Roni Amaya, MECHANICAL INTERN-UPKEEP WORKER [address] [place] [phone] [facility] Start: 04-16-2023 Influenza vaccination INFLUENZA VACC INE (#1) [facility] Start: 04-09-2023 Zoster vaccine hzv l cesar for subcutaneous use ZOSTER (SHINGLES) VACCINE (3 of 3) [facility] Start: 07-15-2022 End: 07-15-2023 REQUEST FOR MISC LAB SENDOUT [facility] Comment on above: Expected: 07/15/2022 , Expires: 07/15/2023 Start: 06-28-2021 Creatinine measurement Creatinine mo [facility], [place] Start: 06-28-2021 Potassium monitoring Potassium monit [place], [place] Start: 06-20-2021 Creatinine measurement Creatinine mo nitzoya [place], [place] Start: 06-20-2021 Potassium monitoring Potassium monit [place], [place] Start: 11-08-2020 End: 11-08-2020 Office Visit 11/08/2020 Office Visit Neurosurgery Amilcar Yates MD [address], [address] [place], [place] [id number] [employer] Start: 07-19-2020 End: 07-19-2020 Office Visit 07/19/2020 Office Visit Neurosurgery Amilcar Yates MD [address], [address] [place], [place] [id number] [employer] Start: 06-27-2020 End: 06-27-2020 Hospital Encounter [facility] Comment on above: L4-5 DECOMPRESSION / PLIF (POSTERIOR LUMBAR INTERBODY FUSION). 2 HOURS / 1 C-ARM / CRUZ TABLE / NUVASIVE / SSEP / CELL SAVERS. REQUESTING 1ST CASE (PAT AT [facility]) Start: 04-16-2020 Influenza vaccination Flu vaccine (# 1) [place], [place] Start: 2018 Pneumococcal 65+ yea rs Vaccine (1 of 1 - PPSV23) Pneumococcal 65+ years Vaccine (1 of 1 - PPSV23) [place], [place] Start: 2008 Screening for osteoporosis DEXA (modify frequency per FRAX score) [place] Start: 2003 Screening for malign ant neoplasm of breast Breast cancer screen [place], [place] Start: 2003 Screening for malign ant neoplasm of colon Colon cancer screen colonoscopy [place], [place] Start: 2003 Shingles Vaccine (1 of 2) Shingles Vaccine (1 of 2) [place] Start: 2003 Zoster vaccine hzv l cesar for subcutaneous use ZOSTER (SHINGLES) VACCINE (1 of 2) [facility] Start: 1998 Screening for malign ant neoplasm of colon COLORECTAL CANCER SCREENING DISCUSSION [facility] Start: 1993 Lipid panel [facility] Start: 1993 Screening for malign ant neoplasm of breast [facility] Start: 1974 Screening for malign ant neoplasm of cervix CERVICAL CANCER SCREENING DISCUSSION [facility] Start: 1972 DTaP/Tdap/Td vaccine (1 - Tdap) DTaP/Tdap/Td vaccine (1 - Tdap) [place], [place] Start: 1972 Third diphtheria, tetanus and acellular pertussis (DTaP) vaccination TDAP (ADULT) [facility] Start: 1963 HbA1c (Bld) [Mass fraction] A1C test (Diabetic or Prediabetic) [place], [place] Start: 1953 Hepatitis C screening A [facility] Start: 1953 Screening for malign ant neoplasm of colon [facility] Start: 1953 Screening for osteoporosis DEXA SCAN DISCUSSION [facility] Start: 1953 Tetanus vaccination TETANUS 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, initial encounter Release Upon Ordering for 1 Occurrences starting 07/26/2023 [facility] Comment on above: Release Upon Orderin g for 1 Occurrences starting 07/26/2023 ANAEROBE CULTURE [facility] Bacteria identified in Body fluid by Culture BODY FLUID CULTURE AND DIRECT SMEAR Microbiology Today 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 joint, sequela 07/15/2022 10:53 AM EST [facility] Bacterial culture an d sensitivity CULTURE WOUND Microbiology Routine 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, initial encounter Release Upon Ordering for 1 Occurrences starting 07/26/2023 [facility] Comment on above: Release Upon Orderin g for 1 Occurrences starting 07/26/2023 Bacterial culture an d sensitivity [facility] Continuous pulse oximetry Pulse oximetry, continuous Respiratory Care Routine Every 4hr until discontinued starting 06/27/2020 [place] Comment on above: Every 4hr until disc ontinued starting 06/27/2020 Fungus identified in Unspecified specimen by Culture FUNGUS CULTURE Microbiology Today 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 joint, sequela 07/15/2022 10:53 AM EST [facility] End: 07-26-2023 Fungus identified in Unspecified specimen by Culture [employer] Comment on above: Release Upon Orderin g for 1 Occurrences starting 07/26/2023 One Time for 1 Occur rences starting 07/26/2023 until 07/26/2023 Fungus identified in Unspecified specimen by Culture [employer] GLUCOSE BODY FLUID GLUCOSE BODY FLUID Fluids Routine 07/15/2022 10:53 AM [employer] Work Phone: Mycobacterium sp identified in Unspecified specimen by Organism specific culture ACID FAST CULTURE Microbiology Today 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 joint, sequela 07/15/2022 10:53 AM [facility] End: 07-26-2023 Mycobacterium sp identified in Unspecified specimen by Organism specific culture [employer] Comment on above: Release Upon Orderin g for 1 Occurrences starting 07/26/2023 One Time for 1 Occur rences starting 07/26/2023 until 07/26/2023 Mycobacterium sp identified in Unspecified specimen by Organism specific culture [employer] Oxygen therapy [Mini [facility] Data Set] Initiate Oxygen Therapy Protocol Respiratory Care Routine Daily until discontinued starting 06/27/2020 [facility] [place] Comment on above: Daily until disconti nued starting 06/27/2020 Patient Education [facility] Work Phone: Patient referral [facility] Work Phone: Radiography for bone length studies XR BONE LENGTH STUDY Imaging Routine 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 joint, sequela 07/15/2022 9:23 AM EST [employer] Radiography for bone length studies XR BONE LENGTH STUDY Imaging Routine Hx of total knee arthroplasty, left 12/08/2023 9:08 AM EDT [employer] Spirometry panel Incentive carly metry Respiratory Care Routine Every 2hr while awake until discontinued starting 06/27/2020 [facility] [place] Comment on above: Every 2hr while awak e until discontinued starting 06/27/2020 Surgical Pathology Surgical Path ology Lab Routine Release Upon Ordering for 1 Occurrences starting 06/27/2020 [facility] [place] Comment on above: Release Upon Orderin g for 1 Occurrences starting 06/27/2020 SYNOVIAL FLUID CELL COUNT SYNOVIAL FLUID CELL COUNT Fluids Today 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 joint, sequela 07/15/2022 10:53 AM [facility] XR Knee - left 3 Views XR KNEE L EFT 3 VIEWS Imaging Routine 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 joint, sequela 07/15/2022 9:23 AM [facility] [employer] XR Knee - left 3 Views XR KNEE L EFT 3 VIEWS Imaging Routine Left knee pain, unspecified chronicity 03/03/2023 2:45 PM EDT [employer] XR Knee - left 3 Views XR KNEE L EFT 3 VIEWS Imaging Routine Hx of total knee arthroplasty, left 08/19/2023 11:32 AM EST [employer] [facility] XR Knee - left 3 Views XR KNEE L EFT 3 VIEWS Imaging Routine Hx of total knee arthroplasty, left 12/08/2023 9:08 AM EDT [employer] [facility] XR Knee - left 4 Views XR KNEE L EFT 4+ VIEWS Imaging Routine Left knee pain, unspecified chronicity Ordered: 02/18/2023 [employer] Comment on above: Ordered: 02/18/2023 Immunizations Immunization Date Immunization Notes Care Provider Francis busby 06-16-2023 influenza virus vacc ine, unspecified formulation Jaci Zelaya [facility] 06-16-2023 zoster vaccine recombinant Jaci Zelaya [facility] 02-12-2023 SARS-CoV-2 (COVID-19 ) mRNAMUL.[id number] [employer] [facility] 02-12-2023 zoster vaccine, live [employer] [facility] 02-12-2023 zoster vaccine, unspecified formulation Braulio Garay MD Work Phone: [facility] 06-08-2022 influenza virus vacc ine, unspecified formulation [employer] [facility] 06-08-2022 SARS-CoV-2 (COVID-19 ) mRNAMUL.ORD![id number] [employer] [facility] 11-28-2021 SARS-CoV-2 mRNA (vmeaspbkdhk-ulkn-pykowho ) vaccine [employer] [facility] 06-24-2021 influenza virus vacc ine, unspecified formulation Louise [employer] [facility] 05-15-2021 SARS-CoV-2 (COVID-19 ) mRNA BNT-162b2 vax Louise [employer] [facility] Comment on above: Result Comment: 2022: [id number] 10-18-2020 SARS-CoV-2 (COVID-19 ) mRNA BNT-162b2 vax Louise [employer] [facility] 09-27-2020 SARS-CoV-2 (COVID-19 ) mRNA BNT-162b2 vax Louise [employer] [facility] 05-08-2020 influenza virus vacc ine, unspecified formulation Louise [employer] [facility] 05-08-2020 Influenza, High-dose , Quadv, 65 yrs +, IM (Fluzone) [facility], [place] 05-08-2020 pneumococcal polysaccharide vaccine, 23 valent [facility] 06-27-2019 influenza virus vacc ine, unspecified formulation Louise [employer] [facility] 06-27-2019 influenza, high dose seasonal, preservative-free [facility] [place] 10-09-2018 pneumococcal conjuga te vaccine, 13 valent [facility] 09-07-2018 pneumococcal polysaccharide vaccine, 23 valent Louise [employer] [facility] 05-16-2018 influenza virus vacc ine, unspecified formulation Louise [employer] [facility] 05-17-2017 influenza virus vacc ine, unspecified formulation Louise [employer] [facility] 07-05-2014 influenza virus vacc ine, unspecified formulation Louise Owusu [facility] Payers Date Payer Category Payer Self-pay [id number] 2018 Unknown [id number] 2018 Medicare [id number] 2017 Unknown [id number] 1961 Medicare [id number] [id number] 1959 Unknown [id number] 1. 2.840.072307.1.13.239.2.7.3.940482.315 1953 Unknown [id number] 2.16.8 40.1.236086.3.579.2.182 1953 Unknown [id number] 2.16.8 40.1.615641.3.579.2.182 1953 Unknown [id number] 2.16.8 40.1.185793.3.579.2.182 1953 Unknown [id number] 2.16.84 0.1.011590.3.579.2.593 1953 Unknown [id number] 2.16.84 0.1.155735.3.579.2.593 1953 Unknown [id number] 2.16.84 0.1.531256.3.579.2.593 1953 Unknown [id number] 2.16.84 0.1.048860.3.579.2.593 1953 Unknown [id number] 2.16.8 40.1.846414.3.579.2.983 1953 Unknown [id number] 2.16.8 40.1.140443.3.579.2.983 1953 Unknown [id number] 2.16.8 40.1.299541.3.579.2.983 1953 Unknown [id number] 2.16.8 40.1.739912.3.579.2.983 1953 Unknown [id number] 2.16.8 40.1.582074.3.579.2.983 1953 Unknown [id number] 2.16.8 40.1.139276.3.579.2.983 1953 Unknown [id number] 2.16.8 40.1.568849.3.579.2.983 1953 Unknown [id number] 2.16.8 40.1.133995.3.579.2.983 1953 Unknown [id number] 2.16.8 40.1.120508.3.579.2.983 1953 Unknown [id number] 2.16.8 40.1.615740.3.579.2.983 1953 Unknown [id number] 2.16.8 40.1.143680.3.579.2.983 1953 Unknown [id number] 2.16.84 0.1.765731.3.579.2.1259 1953 Unknown [id number] 2.16.84 0.1.865530.3.579.2.1259 1953 Unknown [id number] 2.16.84 0.1.256066.3.579.2.1259 1953 Unknown [id number] 2.16.84 0.1.366460.3.579.2.1259 1953 Unknown [id number] 2.16.84 0.1.428721.3.579.2.1259 1953 Unknown [id number] 2.16.84 0.1.850043.3.579.2.1259 1953 Unknown [id number] 2.16.84 0.1.628868.3.579.2.1259 1953 Unknown [id number] 2.16.84 0.1.775436.3.579.2.1259 1953 Unknown [id number] 2.16.84 0.1.084627.3.579.2.1259 1953 Unknown [id number] 2.16.84 0.1.221565.3.579.2.1259 1953 Unknown [id number] 2.16.84 0.1.796196.3.579.2.1259 1953 Unknown [id number] 2.16.84 0.1.556444.3.579.2.1259 1953 Unknown [id number] 2.16.84 0.1.486989.3.579.2.1259 1953 Unknown [id number] 2.16.84 0.1.294209.3.579.2.1259 1953 Unknown [id number] 2.16.84 0.1.661998.3.579.2.1259 1953 Unknown [id number] 2.16.84 0.1.997727.3.579.2.1259 1953 Unknown [id number] 2.16.84 0.1.239009.3.579.2.1259 1953 Unknown [id number] 2.16.84 0.1.509720.3.579.2.1259 1953 Unknown [id number] 2.16.84 0.1.893646.3.579.2.1259 1953 Unknown [id number] 2.16.84 0.1.831744.3.579.2.1259 1953 Unknown [id number] 2.16.8 40.1.124741.3.579.2.727 1953 Unknown [id number] 2.16.8 40.1.552277.3.579.2.727 1953 Unknown [id number] 2.16.8 40.1.578906.3.579.2.72 1953 Unknown [id number] 2.16.8 40.1.626407.3.579.2.727 1953 Unknown [id number] 2.16.8 40.1.233451.3.579.2.72 1953 Unknown [id number] 2.16.8 40.1.250593.3.579.2.72 1953 Unknown [id number] 2.16.8 40.1.963616.3.579.2 1953 Unknown [id number] 2.16.8 40.1.417670.3.579.2. 1953 Unknown [id number] 2.16.8 40.1.615430.3.579.2 1953 Unknown [id number] 2.16.8 40.1.292619.3.579.2 1953 Unknown [id number] 2.16.8 40.1.889821.3.579.2.7 1953 Unknown [id number] 2.16.8 40.1.239673.3.579.2. 1953 Unknown [id number] 2.16.8 40.1.282507.3.579.2. 1953 Unknown [id number] 2.16.8 40.1.956121.3.579.2.72 1953 Unknown [id number] 2.16.8 40.1.017885.3.579.2. 1953 Unknown [id number] 2.16.8 40.1.950335.3.579.2.72 1953 Unknown [id number] 2.16.8 40.1.542211.3.579.2.727 1953 Unknown [id number] 2.16.8 40.1.819409.3.579.2.727 1953 Unknown [id number] 2.16.8 40.1.659004.3.579.2.727 1953 Unknown [id number] 2.16.8 40.1.829909.3.579.2.727 1953 Unknown [id number] 2.16.8 40.1.189819.3.579.2.727 1953 Unknown [id number] 2.16.8 40.1.465162.3.579.2.727 1953 Unknown [id number] 2.16.8 40.1.557461.3.579.2.727 Unknown [id number] 2.16.8 40.1.028073.3.579.2.531 Social History Date Type Detail Facility Start: 06-20-2020 End: 02-15-2024 Tobacco smoking status NHIS Never smoker [place], [place] History of tobacco use Cigarette Smoker [place] History of tobacco use Cigar Sm[place] Start: 06-20-2020 End: 07-15-2022 Tobacco use and exposure Never used [place] Start: 06-20-2020 History SDOH Food Worry 1 [place], [place] Start: 06-20-2020 History SDOH Transport Med 2 [place], [place] Start: 1955 Sex Assigned At Not on file [place], [place] Exposure to SARS-CoV -2 (event) Not sure [place] Start: 07-15-2022 End: 08-19-2023 Alcohol intake Current drinker of alcohol (finding) [facility] Start: 07-15-2022 Alcohol Comment occasional [facility] Start: 1955 Sex Assigned At Female [facility] Start: 03-03-2023 End: 07-26-2023 Sex Assigned At [facility] Tobacco smoking status No Smokin g Status Entered [facility] Tobacco smoking status Never [facility] Start: 03-03-2023 End: 07-26-2023 History of Social function [employer] Start: 05-19-2022 Gender identity Identifies as female gender (finding) [employer] Start: 05-19-2022 Sexual orientation Heterosexual (finding) [employer] Has the [employer], [employer], [employer], or water company threatened to shut off services in your home in past 12Mo No [employer] (I/We) worried wheth er (my/our) food would run out before (I/we) got money to buy more. Never true [employer] Start: 06-23-2023 Alcohol Comment wine once a month [employer] Start: 03-17-2023 Alcohol Comment caffeine: 1-2 cups per day [facility] Procedure Code Equipment Code Equipment Original Text Equipment Identifier Dates Impl Gildardo Spine R tico [id number] Mm 55 Mm [id number] Start: 06-27-2020 Graft Bne Sub 30 cc 1.7-10mm Canc Chip Morselized Frz Dry - [id number] Start: 06-27-2020 Graft Bne Sub 5m l Mtrx Cellular Osteocel + - [id number] Start: 06-27-2020 Screw Spnl L50mm Dia6.5mm Post Thoracolumbosacral Polyax 2s [id number] Start: 06-27-2020 Screw Spnl Dia5. 5mm Opn Tulip Steven Reline [id number] Start: 06-27-2020 Screw Spnl L55mm Dia6.5mm Post Thoracolumbosacral Polyax 2s [id number] Start: 06-27-2020 Coalesce Lumbar Interbody Fusion System [id number] 8deg Lordosis [id number] Start: 06-27-2020 Palacos R+G 1x40 Single With Gentamicin - [id number] Start: 07-26-2023 Attune Knee Syst em Revision Crs Rotating Platform Insert Size 5 12mm Aox [id number] Start: 07-26-2023 Attune Knee Syst em Revision Crs Femoral Size 5 Left Cemented [id number] Start: 07-26-2023 Attune Knee Syst em Revision Distal Femoral Augment Size 5 4mm Cemented [id number] Start: 07-26-2023 Attune Knee Syst em Revision Distal Femoral Augment Size 5 4mm Cemented [id number] Start: 07-26-2023 Palacos R+G 1x40 Single With Gentamicin - [id number] Start: 07-26-2023 Attune Knee Syst em Revision Posterior Femoral Augment Size 5 4mm Cemented [id number] Start: 07-26-2023 Attune Knee Syst em Revision Posterior Femoral Augment Size 5 4mm Cemented [id number] Start: 07-26-2023 Attune Knee Syst em Revision Pressfit Stem 14mm X 110mm [id number] Start: 07-26-2023 Attune Patella M edialized Dome 35mm Cemented Aox [id number] Start: 07-26-2023 Attune Knee Syst em Revision Pressfit Stem 10mm X 60mm [id number] Start: 07-26-2023 Attune Knee Syst em Revision Tibial Sleeve Porocoat Partially Coated 29mm [id number] Start: 07-26-2023 Attune Knee Syst em Revision Tibial Base Rotating Platform Size 3 Cemented [id number] Start: 07-26-2023 Goals Date Patient Goal Desired Activity /State Functional Status Date Assessment Result Facility 11-11-2023 Functional Status N/A [facility] 08-27-2023 Functional Status N/A [facility] 07-23-2023 Functional Status N/A [facility] 06-30-2023 Functional Status N/A [facility] 06-10-2023 Functional Status N/A [facility] 04-28-2023 Functional Status N/A [facility] 04-02-2023 Functional Status N/A [facility] 02-19-2023 Functional Status N/A [facility] 01-20-2023 Functional Status N/A [facility] 12-17-2022 Functional Status N/A [facility] 11-18-2022 Functional Status N/A [facility] 11-11-2022 Functional Status N/A [facility] 11-05-2022 Functional Status N/A [facility] Clinical Notes 07-15-2022 to 02-15-2024 Gina Granger - 12/08/2023 9:20 AM Holden Garay MD - 12/08/2023 9:20 AM EDT Note Date & Type Note Facility 02-15-2024 Procedure note [facility] 12-08-2023 History of Present illness Narrative Ortho Nurse - Established Patient Intake Room#: room 2---- pt here today for a 4 month follow-up LTKA (07/27/23). Pt rates her pain on a scale of 3/10 today. Pt states she is doing pretty well and is doing much better than last visit. Pt states she is still doing home exercises and that has been feeling good. She is unable to still go up and down the stairs like she would like to. Date: 12/08/2023 9:33 AM Patient: Lilo Reyes MR#: [id number] : 1955 Age: 68 y.o. Referring Physician: Self, Self Insurance: Payor: MEDICARE / Plan: MEDICARE A AND B / Product Type: *No Product type* / Chief Complaint Patient presents with Left Knee - Follow-up Visit Vitals Ht 1.6 m (5' 3 ) Wt 91.2 kg (201 lb) BMI 35.61 kg/m Pain Recent Labs No results found for: CRP No results found for: SEDRATE Lab Results Component Value Date WBC 11.3 (H) 07/27/2023 HGB 10.6 (L) 07/27/2023 HCT 34.0 (L) 07/27/2023 PLATELET 177 07/27/2023 MCV 83.2 07/27/2023 History Past Medical History: Diagnosis Date Arthritis Back pain chronic pain since surgery Essential hypertension, benign Floaters, bilateral Ringing in right ear Past Surgical History: Procedure Laterality Date REVISION ARTHROPLASTY KNEE Left 07/26/2023 Laterality: Left; Surgeon: Braulio Garay MD; Location: [facility] ARTHROPLASTY KNEE TOTAL Left 08/20/2021 ARTHROPLASTY KNEE TOTAL Right 2017 BLADDER SURGERY 2018 prolapsed APPENDECTOMY ARTHROSCOPY KNEE Right times three BACK SURGERY Spinal fusion 2020 lumbar HYSTERECTOMY RELEASE CARPAL TUNNEL Left REMOVAL CATARACT (PEM) Bilateral SHOULDER SURGERY Right Rotator Family History: Her family history includes Heart Disease - Other in her father, mother, and sister; Lung Cancer in her father; Myocardial Infarction in her sister. Social History: Her reports that she has never smoked. She has never used smokeless tobacco. She reports current alcohol use. She reports that she does not use drugs. Outpatient Medications Prior to Visit Medication Sig Dispense Refill Acetaminophen 325 MG tablet Take 2 tablets by mouth every 4 hours as needed for Mild Pain. 50 tablet [address] tablet Take 1 tab twice a day for 30 days. This medication is for blood clot prevention. 60 tablet 0 aspirin/placebo, M-1657, 81 mg tablet Take 1 tablet by mouth daily. Calcium Carbonate-Vit D-Min (CALCIUM 1200 PO) Take by mouth 2 times daily. Celecoxib 200 MG capsule Take 1 capsule by mouth daily. 90 capsule 0 diphenhydrAMINE 25 MG tablet Take 1 tablet by mouth at bedtime as needed. Docusate 100 MG capsule Take 1 capsule by mouth 2 times daily. 60 capsule 0 estradiol 0.1 MG/GM cream Insert vaginally once a week. Magnesium 400 MG tablet Take by mouth daily. Melatonin 10 MG tablet Take by mouth. metoprolol 25 MG tab regular release Take 1 tablet by mouth 2 times daily. Takes half of tablet twice a day omeprazole [address] capsule Take 1 capsule by mouth daily. 30 capsule 0 oxyCODONE 5 MG tablet Take 1-2 tabs po q 4-6 hours prn pain. Wean as tolerated. 30 tablet 0 Potassium 99 MG tablet Take by mouth daily. therapeutic multivitamin-minerals tablet Take 1 tablet by mouth at bedtime. 30 tablet 0 No facility-administered medications prior to visit. Allergies: She is allergic to mobic [meloxicam] and amoxicillin. HPI: Patient is here today for evaluation of her operative knee. 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 She is about 4 months out from surgery and reports that she is doing well and is pleased with the outcome of the intervention. States she is doing better now, states she is doing home exercises but feels like she still struggles with steps. Her pain is a 3/10. PHYSICAL EXAM: The bilateral lower extremities were evaluated. The operative lower extremity is soft, nontender, full and supple motion. No pain, no impingement. No instability. Incision is well healed. ROM of 0-100 degrees and a stable examination to varus and valgus stress with normal balance throughout the arc of motion. The contralateral extremity has full motion, normal stability, no tenderness. Both extremities have normal neurovascular status. DIAGNOSTIC STUDIES/INTERPRETATION: Plain film radiographs reviewed. Three views of the operative knee show a cemented left total knee arthroplasty in appropriate position and alignment. No evidence of prosthetic implant loosening or migration. Long standing films demonstrate neutral recreation of the mechanical axis through the operative leg. 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 PLAN: I reviewed my findings with patient. Overall, I am pleased with the outcome of intervention. She has made an excellent recovery thus far. We discussed the stages of healing along with what symptoms that can be expected at current stage. She understands she is at the 40% ludwig of total recover. We also discussed the benefits of performing a variety of exercises at home, with a physical therapist or local gym. I strongly encouraged her to work on flexion daily as optimal window time frame is closing. She verbalized understanding and states flexion improves at the day goes on. A refill of Celebrex was also given per her request - additional scripts will be deferred to PCP. I expect continued improvement in strength and mobility moving forward. I recommend followup at one year for repeat clinical and radiographic examination or sooner if any new symptoms develop. She will call with any questions or concerns in the meantime. I have reviewed the findings of the clinical bioinformatics support specialist and agree with their assessment. Ortho Nurse - Established Patient Intake Room#: room 2---- pt here today for a 4 month follow-up LTKA (07/27/23). Pt rates her pain on a scale of 3/10 today. Pt states she is doing pretty well and is doing much better than last visit. Pt states she is still doing home exercises and that has been feeling good. She is unable to still go up and down the stairs like she would like to. Date: 12/08/2023 9:33 AM Patient: Lilo Reyes MR#: [id number] : 1955 Age: 68 y.o. Referring Physician: Self, Self Insurance: Payor: MEDICARE / Plan: MEDICARE A AND B / Product Type: *No Product type* / Chief Complaint Patient presents with Left Knee - Follow-up Visit Vitals Ht 1.6 m (5' 3 ) Wt 91.2 kg (201 lb) BMI 35.61 kg/m Pain Recent Labs No results found for: CRP No results found for: SEDRATE Lab Results Component Value Date WBC 11.3 (H) 07/27/2023 HGB 10.6 (L) 07/27/2023 HCT 34.0 (L) 07/27/2023 PLATELET 177 07/27/2023 MCV 83.2 07/27/2023 History Past Medical History: Diagnosis Date Arthritis Back pain chronic pain since surgery Essential hypertension, benign Floaters, bilateral Ringing in right ear Past Surgical History: Procedure Laterality Date REVISION ARTHROPLASTY KNEE Left 07/26/2023 Laterality: Left; Surgeon: Braulio Garay MD; Location: [facility] ARTHROPLASTY KNEE TOTAL Left 08/20/2021 ARTHROPLASTY KNEE TOTAL Right 2017 BLADDER SURGERY 2018 prolapsed APPENDECTOMY ARTHROSCOPY KNEE Right times three BACK SURGERY Spinal fusion 2020 lumbar HYSTERECTOMY RELEASE CARPAL TUNNEL Left REMOVAL CATARACT (PEM) Bilateral SHOULDER SURGERY Right Rotator Family History: Her family history includes Heart Disease - Other in her father, mother, and sister; Lung Cancer in her father; Myocardial Infarction in her sister. Social History: Her reports that she has never smoked. She has never used smokeless tobacco. She reports current alcohol use. She reports that she does not use drugs. Outpatient Medications Prior to Visit Medication Sig Dispense Refill Acetaminophen 325 MG tablet Take 2 tablets by mouth every 4 hours as needed for Mild Pain. 50 tablet [address] Aspir[address] tablet Take 1 tab twice a day for 30 days. This medication is for blood clot prevention. 60 tablet 0 aspirin/placebo, M-1657, 81 mg tablet Take 1 tablet by mouth daily. Calcium Carbonate-Vit D-Min (CALCIUM 1200 PO) Take by mouth 2 times daily. Celecoxib 200 MG capsule Take 1 capsule by mouth daily. 90 capsule 0 diphenhydrAMINE 25 MG tablet Take 1 tablet by mouth at bedtime as needed. Docusate 100 MG capsule Take 1 capsule by mouth 2 times daily. 60 capsule 0 estradiol 0.1 MG/GM cream Insert vaginally once a week. Magnesium 400 MG tablet Take by mouth daily. Melatonin 10 MG tablet Take by mouth. metoprolol 25 MG tab regular release Take 1 tablet by mouth 2 times daily. Takes half of tablet twice a day omeprazole [address] capsule Take 1 capsule by mouth daily. 30 capsule 0 oxyCODONE 5 MG tablet Take 1-2 tabs po q 4-6 hours prn pain. Wean as tolerated. 30 tablet 0 Potassium 99 MG tablet Take by mouth daily. therapeutic multivitamin-minerals tablet Take 1 tablet by mouth at bedtime. 30 tablet 0 No facility-administered medications prior to visit. Allergies: She is allergic to mobic [meloxicam] and amoxicillin. documented in this encounter [facility] 11-12-2023 Note [id number] [facility] 11-11-2023 Evaluation + Plan note Extrac carter from: Title:ANES Post-operative Note - General Author: Rachel Gilmore CRNA. Date:11/11/23 Plan Transfer/Discharge: Transfer/Discharge Discharge when meets criteria ( From PACU to Ambulatory Surgery Unit, and To home ). Extracted from: Title:ANES Pre-operative Note - Endo Author:Rachel Beatty i, CRNA. Date:11/11/23 Plan [place] [employer]esthesiologists (ASA) physical status classification: Class III. Anesthetic Preoperative Plan: Anesthesia General, and -TIVA. Future Appointments Appointment Date:04/10/2024 11:00:00 AM Scheduled Provider: Location:[facility] Appointment Type:FM Medicare Wellness Subsequent [facility]03-28-2024 Hospital Discharge instructions Patient Education 11/11/2023 09:44:39 Hemorrhoids, Oiee-mb-Mwte Hemorrhoids Hemorrhoids are swollen veins that may develop: In the butt (rectum). These are called internal hemorrhoids. Around the opening of the butt (anus). These are called external hemorrhoids. Hemorrhoids can cause pain, itching, or bleeding. Most of the time, they do not cause serious problems. They usually get better with diet changes, lifestyle changes, and other home treatments. What are the causes? This condition may be caused by: Having trouble pooping (constipation). Pushing hard (straining) to poop. Watery poop (diarrhea). . Being very overweight (obese). Sitting for long periods of time. Heavy lifting or other activity that causes you to strain. Anal sex. Riding a bike for a long period of time. What are the signs or symptoms? Symptoms of this condition include: Pain. Itching or soreness in the butt. Bleeding from the butt. Leaking poop. Swelling in the area. One or more lumps around the opening of your butt. How is this diagnosed? A doctor can often diagnose this condition by looking at the affected area. The doctor may also: Do an exam that involves feeling the area with a gloved hand (digital rectal exam). Examine the area inside your butt using a small tube (anoscope). Order blood tests. This may be done if you have lost a lot of blood. Have you get a test that involves looking inside the colon using a flexible tube with a camera on the end (sigmoidoscopy or colonoscopy). How is this treated? This condition can usually be treated at home. Your doctor may tell you to change what you eat, make lifestyle changes, or try home treatments. If these do not help, procedures can be done to remove the hemorrhoids or make them smaller. These may involve: Placing rubber bands at the base of the hemorrhoids to cut off their blood supply. Injecting medicine into the hemorrhoids to shrink them. Shining a type of light energy onto the hemorrhoids to cause them to fall off. Doing surgery to remove the hemorrhoids or cut off their blood supply. Follow these instructions at home: Eating and drinking Eat foods that have a lot of fiber in them. These include whole grains, beans, nuts, fruits, and vegetables. Ask your doctor about taking products that have added fiber (fibersupplements). Reduce the amount of fat in your diet. You can do this by: ?Eating low-fat dairy products. ?Eating less red meat. ?Avoiding processed foods. Drink enough fluid to keep your pee (urine) pale yellow. Managing pain and swelling Take a warm-water bath (sitz bath) for 20 minutes to ease pain. Do this 3 4 times a day. You may dothis in a bathtub or using a portable sitz bath that fits over the toilet. If told, put ice on the painful area. It may be helpful to use ice between your warm baths. ?Put ice in a plastic bag. ?Place a towel between your skin and the bag. ?Leave the ice on for 20 minutes, 2 3 times a day. General instructions Take tjwo-mkx-ijyuevv and prescription medicines only as told by your doctor. ?Medicated creams and medicines may be used as told. Exercise often. Ask your doctor how much and what kind of exercise is best for you. Go to the bathroom when you have the urge to poop. Do not wait. Avoid pushing too hard when you poop. Keep your butt dry and clean. Use wet toilet paper or moist towelettes after pooping. Do not sit on the toilet for a long time. Keep all follow-up visits as told by your doctor. This is important. Contact a doctor if you: Have pain and swelling that do not get better with treatment or medicine. Have trouble pooping. Cannot poop. Have pain or swelling outside the area of the hemorrhoids. Get help right away if you have: Bleeding that will not stop. Summary Hemorrhoids are swollen veins in the butt or around the opening of the butt. They can cause pain, itching, or bleeding. Eat foods that have a lot of fiber in them. These include whole grains, beans, nuts, fruits, and vegetables. Take a warm-water bath (sitz bath) for 20 minutes to ease pain. Do this 3 4 times a day. This information is not intended to replace advice given to you by your health care provider. Make sure you discuss any questions you have with your health care provider. Document Revised: 02/11/2022 Document Reviewed: 02/11/2022 [employer] Patient Education 2022 [place]. 11/11/2023 09:44:11 Diverticulosis MAGR (CUSTOM) Diverticulosis Many people have small pouches in their colon called diverticulum. The diverticulum bulge outward through weak spots in the colon. You could have one or more of these pouches in the colon. The condition of having these pouches in the colon is called diverticulosis or diverticular disease. Diverticulosis is usually diagnosed by tests to evaluate something else. For example, you may have had a colonoscopy to screen for colon cancer when the diverticulosis was found. Most people with diverticulosis do not have any discomfort or problems. If symptoms develop, they may include mild cramps, bloating, and constipation. A complication of this condition is called diverticulitis. This is when the diverticulum become inflamed and infected. How to treat diverticulosis: Increasing the amount of fiber in the diet may reduce symptoms of diverticulosis and prevent complications such as diverticulitis (infected diverticuli). Fiber keeps stool soft and lowers pressure inside the colon so that bowel contents can move througheasily. You should eat 20 to 35 grams of fiber each day. The table below shows the amount of fiber in some foods that you can easily add to your diet. Adding fiber slowly may decrease the bloating and fullness sometimes felt with an immediate high fiber diet. The doctor may also recommend taking a fiber product such as Citrucel or Metamucil once a day. In the past people with diverticulosis were to avoid nuts, corn, and seeds. This has not been foundto be true. If you find that certain foods create cramping or bloating, avoid that food. Foods high in fiber include: Fresh fruits, fresh vegetables, legumes (beans), whole wheat bread, bran muffins or cereal, and nuts. See the table below for examples of high fiber foods. Remember, your goal is 20- 35 grams per day. Amount of fiber in different foods Food Serving Grams of fiber Fruits Apple (with skin) 1 medium apple 4.4 Banana 1 medium banana 3.1 Oranges 1 orange 3.1 Prunes 1 cup, pitted 12.4 Juices Apple, unsweetened, w/added ascorbic acid 1 cup 0.5 Grapefruit, white, canned, sweetened 1 cup 0.2 Grape, unsweetened, w/added ascorbic acid 1 cup 0.5 [place] 1 cup 0.7 Vegetables Cooked Green beans 1 cup 4.0 Carrots 1/2 cup sliced 2.3 Peas 1 cup 8.8 Potato (baked, with skin) 1 medium potato 3.8 Raw [place] (with peel) 1 cucumber 1.5 Lettuce 1 cup shredded 0.5 Tomato 1 medium tomato 1.5 Spinach 1 cup 0.7 Legumes Baked beans, canned, no salt added 1 cup 13.9 Kidney beans, canned 1 cup 13.6 [place] beans, canned 1 cup 11.6 Lentils, boiled 1 cup 15.6 Breads, pastas, flours Bran muffins 1 medium muffin 5.2 Oatmeal, cooked 1 cup 4.0 White bread 1 slice 0.6 Whole-wheat bread 1 slice 1.9 Pasta and rice, cooked Macaroni 1 cup 2.5 Rice, brown 1 cup 3.5 Rice, white 1 cup 0.6 Spaghetti (regular) 1 cup 2.5 Nuts Almonds 1/2 cup 8.7 Peanuts 1/2 cup 7.9 Chart from [facility] 2013. SEEK IMMEDIATE MEDICAL CARE IF: You develop abdominal (belly) pain. An oral temperature above _ 101 F__develops. Repeated vomiting occurs. Blood is being passed in stools (bright red or black tarry stools). You develop any bowel problems or changes which you have not had before. Extra Information: To learn how much fiber and other nutrients are in different foods, visit the [place] Department of Agriculture (USDA) National Nutrient Database at: http://www.nal.usda.gov/fnic/foodcomp/search/ Created using data from the USDA National Nutrient Database for Standard Reference. Available at http://www.[employer].usda.gov/fnic/foodcomp/search/. Information adapted from: Exit[employer] Patient Information 2009 [place]. [facility] 2012 [email or web address] 11/11/2023 09:44:07 Colonoscopy, Care After Surgery Pedro (CUSTOM) Colonoscopy Care After Surgery Please read the instructions outlined below and refer to this sheet in the next few weeks. These discharge instructions provide you with general information on caring for yourself [facility] Your doctor may also give you specific instructions. While your treatment has been planned according to the most current medical practices available, unavoidable complications occasionally occur. If you have any problems or questions after discharge, please call your doctor. ACTIVITY You may resume your regular activity, but move at a slower pace for the next 24 hours. Take frequent rest periods for the next 24 hours. Walking will help get rid of the air and reduce the bloated feeling in your abdomen (belly). No driving for 24 hours (because of the anesthesia (medicine) used during the test). You may shower. Do not sign any important legal documents or operate any machinery for 24 hours (because of the anesthesia used during the test). NUTRITION Drink plenty of fluids. You may resume your normal diet as instructed by your doctor. Begin with a light meal and progress to your normal diet. Heavy or fried foods are harder to digestand may make you feel nauseated (sick to your stomach). Avoid alcoholic beverages for 24 hours or as instructed. MEDICATIONS You may resume your normal medications unless your doctor tells you otherwise. WHAT YOU CAN EXPECT TODAY Some feelings of bloating in the abdomen. Passage of more gas than usual. Spotting of blood in your stool or on the toilet paper. FOLLOW-UP Your doctor will discuss the results of your test with you. SEEK IMMEDIATE MEDICAL ATTENTION IF: There is more than a spotting of blood in your stool. There is abdominal distention (your abdomen is swollen). There is vomiting. You have a temperature over 101.5 F. There is abdominal pain or discomfort that is severe or gets worse throughout the day. Follow Up Care 08/27/2023 09:34:55 With:Sharon DUBON, MACHELLE Frausto, [facility] Address: [address] [place] [address], [address] [phone] When: Unknown Comments:Office will call to schedule follow up appointment and/or review any pending biopsy resultsCall forany problems. [facility]01-12-2024 Hospital Discharge instructions Patient Education 08/27/2023 08:27:48 Colonoscopy, Adult [...] including vitamins, herbs, eye drops, creams, and dnkg-fcn-ggphczt medicines. Any problems you or family members [...] provider about eating or drinking restrictions, which mayinclude: A few days before the procedure: ?Follow [...] the procedure, or within the time period thatyour health care provider recommends. Bowel prep If you were prescribed a bowel prep to take by mouth (orally) to clean out your colon: Take it as told by your health care provider. Starting the day before your procedure, you will needto drink a large amount of liquid medicine. [...] supplements. This is especially important if you aretaking iron supplements, diabetes medicines, or blood thinners. Taking medicines such as aspirin and ibuprofen. These medicines can thin your blood. Do not take these medicines unless your health care provider tells you to take them. Taking nbnj-npr-bymyifo medicines, vitamins, herbs, and supplements. General instructions Ask your health care provider what steps will be taken to help prevent infection. These may includewashing skin with a germ-killing soap. If you [...] under a microscope (biopsy). The tissue may besent to a lab for testing if any [...] blood oxygen level will be monitored until youleave the hospital or clinic. You may have a small amount of blood in your stool. You may pass gas and have mild cramping or bloating in your abdomen. This is caused by the air thatwas used to open your colon during the [...] end is inserted into the anus and thenpassed into all parts of the large intestine. This information is not intended to replace advice given to you by your health care provider. Make sure you discuss any questions you have with your health care provider. Document Revised: 07/27/2022 Document Reviewed: 03/25/2022 [employer] Patient Education 2022 Tã Em Bé. Follow Up Care 08/27/2023 08:24:29 With:Noris Solomon CNP Address: When:1 to 2 weeks Comments:Following colonoscopy. [facility] 01-12-2024 NoteRadiology Colonoscopy, Adult A colonoscopy is a procedure to look at the entire large intestine. This procedure is done using a long, thin, flexible tube that has a camera on the end. You may have a colonoscopy: ? As a part of normal colorectal screening. ? If you have certain symptoms, such as: ? A low number of red blood cells in your blood (anemia). ? Diarrhea that does not go away. ? Pain in your abdomen. ? Blood in your stool. A colonoscopy can help screen for and diagnose medical problems, including: ? An abnormal growth of cells or tissue (tumor). ? Abnormal growths within the lining of your intestine (polyps). ? Inflammation. ? Areas of bleeding. Tell your health care provider about: ? Any allergies you have. ? All medicines you are taking, including vitamins, herbs, eye drops, creams, and qnow-cbg-ccezrlf medicines. ? Any problems you or family members have had with anesthetic medicines. ? Any bleeding problems you have. ? Any surgeries you have had. ? Any medical conditions you have. ? Any problems you have had with having bowel movements. ? Whether you are or may be . What are the risks? Generally, this is a safe procedure. However, problems may occur, including: ? Bleeding. ? Damage to your intestine. ? Allergic reactions to medicines given during the procedure. ? Infection. This is rare. What happens before the procedure? Eating and drinking restrictions Follow instructions from your health care provider about eating or drinking restrictions, which mayinclude: ? A few days before the procedure: ? Follow a low-fiber diet. ? Avoid nuts, seeds, dried fruit, raw fruits, and vegetables. ? 1?3 days before the procedure: ? Eat only gelatin dessert or ice pops. ? Drink only clear liquids, such as water, clear juice, clear broth or bouillon, black coffee or tea, or clear soft drinks or sports drinks. ? Avoid liquids that contain red or purple dye. ? The day of the procedure: ? Do not eat solid foods. You may continue to drink clear liquids until up to 2 hours before the procedure. ? Do not eat or drink anything starting 2 hours before the procedure, or within the time period that your health care provider recommends. Bowel prep If you were prescribed a bowel prep to take by mouth (orally) to clean out your colon: ? Take it as told by your health care provider. Starting the day before your procedure, you will need to drink a large amount of liquid medicine. The liquid will cause you to have many bowel movements of loose stool until your stool becomes almost clear or light green. ? If your skin or the opening between the buttocks (anus) gets irritated from diarrhea, you may relieve the irritation using: ? Wipes with medicine in them, such as adult wet wipes with aloe and vitamin E. ? A product to soothe skin, such as petroleum jelly. ? If you vomit while drinking the bowel prep: ? Take a break for up to 60 minutes. ? Begin the bowel prep again. ? Call your health care provider if you keep vomiting or you cannot take the bowel prep without vomiting. ? To clean out your colon, you may also be given: ? Laxative medicines. These help you have a bowel movement. ? Instructions for enema use. An enema is liquid medicine injected into your rectum. Medicines Ask your health care provider about: ? Changing or stopping your regular medicines or supplements. This is especially important if you are taking iron supplements, diabetes medicines, or blood thinners. ? Taking medicines such as aspirin and ibuprofen. These medicines can thin your blood. Do not take these medicines unless your health care provider tells you to take them. ? Taking wzmg-ivz-iqkcays medicines, vitamins, herbs, and supplements. General instructions ? Ask your health care provider what steps will be taken to help prevent infection. These may include washing skin with a germ-killing soap. ? If you will be going home right after the procedure, plan to have a responsible adult: ? Take you home from the hospital or clinic. You will not be allowed to drive. ? Care for you for the time you are told. What happens during the procedure? ? An IV will be inserted into one of your veins. ? You will be given a medicine to make you fall asleep (general anesthetic). ? You will lie on your side with your knees bent. ? A lubricant will be put on the tube. Then the tube will be: ? Inserted into your anus. ? Gently eased through all parts of your large intestine. ? Air will be sent into your colon to keep it open. This may cause some pressure or cramping. ? Images will be taken with the camera and will appear on a screen. ? A small tissue sample may be removed to be looked at under a microscope (biopsy). The tissue may be sent to a lab for testing if any signs of problems are found. ? If small polyps are found, they may be removed and checked for cancer cells. (more content not included)...[facility]01-04-2024 History of Present illness Narrative* Ruth Antonio - 08/19/2023 11:40 AM EST Ortho Nurse - Established Patient Intake Room#: 4 Date: 08/19/2023 11:57 AM Patient: Lilo Reyes MR#: [id number] : 1955 Age: 68 y.o. 3wk L TKA Pt stated she is doing good and has little pain 11/23. Pt was wearing her carter hose and using a walker at the time. Referring Physician: Roni Amaya APRN-CNP Insurance: Payor: MEDICARE / Plan: MEDICARE A AND B / Product Type: *No Product type* / Chief Complaint Patient presents with Left Knee - Post Op Visit Visit Vitals Ht 1.6 m (5' 3 ) Wt 91.2 kg (201 lb) BMI 35.61 kg/m Pain Recent Labs No results found for: CRP No results found for: SEDRATE Lab Results Component Value Date WBC 11.3 (H) 07/27/2023 HGB 10.6 (L) 07/27/2023 HCT 34.0 (L) 07/27/2023 PLATELET 177 07/27/2023 MCV 83.2 07/27/2023 History Past Medical History: Diagnosis Date Arthritis Back pain chronic pain since surgery Essential hypertension, benign Floaters, bilateral Ringing in right ear Past Surgical History: Procedure Laterality Date REVISION ARTHROPLASTY KNEE Left 07/26/2023 Laterality: Left; Surgeon: Braulio Garay MD; Location: [facility] ARTHROPLASTY KNEE TOTAL Left 08/20/2021 ARTHROPLASTY KNEE TOTAL Right 2017 BLADDER SURGERY 2018 prolapsed APPENDECTOMY ARTHROSCOPY KNEE Right times three BACK SURGERY Spinal fusion 2020 lumbar HYSTERECTOMY RELEASE CARPAL TUNNEL Left REMOVAL CATARACT (PEM) Bilateral SHOULDER SURGERY Right Rotator Family History: Her family history includes Heart Disease - Other in her father, mother, and sister; Lung Cancer in her father; Myocardial Infarction in her sister. Social History: Her reports that she has never smoked. She has never used smokeless tobacco. She reports current alcohol use. She reports that she does not use drugs. Outpatient Medications Prior to Visit Medication Sig Dispense Refill Acetaminophen 325 MG tablet Take 2 tablets by mouth every 4 hours as needed for Mild Pain. 50 tablet [address] tablet Take 1 tab twice a day for 30 days. This medication is for blood clot prevention. 60 tablet 0 aspirin/placebo, M-1657, 81 mg tablet Take 1 tablet by mouth daily. Calcium Carbonate-Vit D-Min (CALCIUM 1200 PO) Take by mouth 2 times daily. Celecoxib 200 MG capsule Take 1 capsule by mouth 2 times daily. 84 capsule 0 Docusate 100 MG capsule Take 1 capsule by mouth 2 times daily. 60 capsule 0 estradiol 0.1 MG/GM cream Insert vaginally once a week. Magnesium 400 MG tablet Take by mouth daily. metoprolol 25 MG tab regular release Take 1 tablet by mouth 2 times daily. Takes half of tablet twice a day omeprazole [address] capsule Take 1 capsule by mouth daily. 30 capsule 0 Potassium 99 MG tablet Take by mouth daily. therapeutic multivitamin-minerals tablet Take 1 tablet by mouth at bedtime. 30 tablet 0 diphenhydrAMINE 25 MG tablet Take 1 tablet by mouth at bedtime as needed. Melatonin 10 MG tablet Take by mouth. oxyCODONE 5 MG tablet Take 1-2 tabs po q 4-6 hours prn pain. Wean as tolerated. 30 tablet 0 No facility-administered medications prior to visit. Current Outpatient Medications: Acetaminophen 325 MG tablet, Take 2 tablets by mouth every 4 hours as needed for Mild Pain., Disp: 50 tablet, Rfl: [address] tablet, Take 1 tab twice a day for 30 days. This medication is for blood clot prevention., Disp: 60 tablet, Rfl: 0 aspirin/placebo, M-1657, 81 mg tablet, Take 1 tablet by mouth daily., Disp: , Rfl: Calcium Carbonate-Vit D-Min (CALCIUM 1200 PO), Take by mouth 2 times daily., Disp: , Rfl: Celecoxib 200 MG capsule, Take 1 capsule by mouth 2 times daily., Disp: 84 capsule, Rfl: 0 Docusate 100 MG capsule, Take 1 capsule by mouth 2 times daily., Disp: 60 capsule, Rfl: 0 estradiol 0.1 MG/GM cream, Insert vaginally once a week., Disp: , Rfl: Magnesium 400 MG tablet, Take by mouth daily., Disp: , Rfl: metoprolol 25 MG tab regular release, Take 1 tablet by mouth 2 times daily. Takes half of tablet twice a day, Disp: , Rfl: omeprazole [address] capsule, Take 1 capsule by mouth daily., Disp: 30 capsule, Rfl: 0 Potassium 99 MG tablet, Take by mouth daily., Disp: , Rfl: therapeutic multivitamin-minerals tablet, Take 1 tablet by mouth at bedtime., Disp: 30 tablet, Rfl:0 diphenhydrAMINE 25 MG tablet, Take 1 tablet by mouth at bedtime as needed., Disp: , Rfl: Melatonin 10 MG tablet, Take by mouth., Disp: , Rfl: oxyCODONE 5 MG tablet, Take 1-2 tabs po q 4-6 hours prn pain. Wean as tolerated., Disp: 30 tablet, Rfl: 0 Allergies: She is allergic to mobic [meloxicam] and amoxicillin. * Roni Amaya APRN-CHU - 08/19/2023 11:40 AM EST HPI: Lilo Reyes is 3 weeks s/p left TKA revision. She is happy with her recovery to date and could not be happier with the outcomes of the operation. She is participating in PT in the home setting, tdwb, using asa for DVT prophylaxis along with compression stockings. She is using tylenol for pain control.. PHYSICAL EXAM: Today on examination she is Ht 1.6 m (5' 3 ) Wt 91.2 kg (201 lb) BMI 35.61 kg/m Smoking Status Never Body mass index is 35.61 kg/m . Pain is reported as 4/10. Incision is healing well without erythema, drainage, induration or evidence of dehiscence. There is mild global knee swelling. Calves are soft and non tender bilaterally with negative Homans sign. Distal neurovascular exam is intact. ROM is reported as unknown in physical therapy, today it is found to be 0-90. The examination is stable to varus and valgus stress. DIAGNOSTIC STUDIES/INTERPRETATION: X-rays were reviewed today and reveal Cemented total knee arthroplasty in good position and alignment unchanged from the immediate postop films. Assessment/Plan: 3 weeks postop left TKA revision. Continue DVT prophylaxis as prescribed. Ok for pwb and rom as tolerated. Continue physical therapy-ok for outpatient and rx provided. Follow up [address] Garay for clinical and radiological evaluation unless an earlier need should arise. Dental prophylaxiswas prescribed and instructions given. All questions and concerns were addressed at this appointment and the patient expressed understanding. All pertinent portions of the clinical bioinformatics support specialist documentation was reviewed and agree. YONATAN Flores I have reviewed the findings of the clinical bioinformatics support specialist and agree with their assessment. YONATAN Flores Ortho Nurse - Established Patient Intake Room#: 4 Date: 08/19/2023 11:57 AM Patient: Lilo Reyes MR#: [id number] : 1955 Age: 68 y.o. 3wk L TKA Pt stated she is doing good and has little pain 4/10. Pt was wearing her carter hose and using a walker at the time. Referring Physician: Roni Amaya APRN-CNP Insurance: Payor: MEDICARE / Plan: MEDICARE A AND B / Product Type: *No Product type* / Chief Complaint Patient presents with Left Knee - Post Op Visit Visit Vitals Ht 1.6 m (5' 3 ) Wt 91.2 kg (201 lb) BMI 35.61 kg/m Pain Recent Labs No results found for: CRP No results found for: SEDRATE Lab Results Component Value Date WBC 11.3 (H) 07/27/2023 HGB 10.6 (L) 07/27/2023 HCT 34.0 (L) 07/27/2023 PLATELET 177 07/27/2023 MCV 83.2 07/27/2023 History Past Medical History: Diagnosis Date Arthritis Back pain chronic pain since surgery Essential hypertension, benign Floaters, bilateral Ringing in right ear Past Surgical History: Procedure Laterality Date REVISION ARTHROPLASTY KNEE Left 07/26/2023 Laterality: Left; Surgeon: Braulio Garay MD; Location: [facility] ARTHROPLASTY KNEE TOTAL Left 08/20/2021 ARTHROPLASTY KNEE TOTAL Right 2017 BLADDER SURGERY 2017 prolapsed APPENDECTOMY ARTHROSCOPY KNEE Right times three BACK SURGERY Spinal fusion 2020 lumbar HYSTERECTOMY RELEASE CARPAL TUNNEL Left REMOVAL CATARACT (PEM) Bilateral SHOULDER SURGERY Right Rotator Family History: Her family history includes Heart Disease - Other in her father, mother, and sister; Lung Cancer in her father; Myocardial Infarction in her sister. Social History: Her reports that she has never smoked. She has never used smokeless tobacco. She reports current alcohol use. She reports that she does not use drugs. Outpatient Medications Prior to Visit Medication Sig Dispense Refill Acetaminophen 325 MG tablet Take 2 tablets by mouth every 4 hours as needed for Mild Pain. 50 tablet [address]ir[address] tablet Take 1 tab twice a day for 30 days. This medication is for blood clot prevention. 60 tablet 0 aspirin/placebo, M-7, 81 mg tablet Take 1 tablet by mouth daily. Calcium Carbonate-Vit D-Min (CALCIUM 1200 PO) Take by mouth 2 times daily. Celecoxib 200 MG capsule Take 1 capsule by mouth 2 times daily. 84 capsule 0 Docusate 100 MG capsule Take 1 capsule by mouth 2 times daily. 60 capsule 0 estradiol 0.1 MG/GM cream Insert vaginally once a week. Magnesium 400 MG tablet Take by mouth daily. metoprolol 25 MG tab regular release Take 1 tablet by mouth 2 times daily. Takes half of tablet twice a day omeprazole [address] capsule Take 1 capsule by mouth daily. 30 capsule 0 Potassium 99 MG tablet Take by mouth daily. therapeutic multivitamin-minerals tablet Take 1 tablet by mouth at bedtime. 30 tablet 0 diphenhydrAMINE 25 MG tablet Take 1 tablet by mouth at bedtime as needed. Melatonin 10 MG tablet Take by mouth. oxyCODONE 5 MG tablet Take 1-2 tabs po q 4-6 hours prn pain. Wean as tolerated. 30 tablet 0 No facility-administered medications prior to visit. Current Outpatient Medications: Acetaminophen 325 MG tablet, Take 2 tablets by mouth every 4 hours as needed for Mild Pain., Disp: 50 tablet, Rfl: [address] tablet, Take 1 tab twice a day for 30 days. This medication is for blood clot prevention., Disp: 60 tablet, Rfl: 0 aspirin/placebo, M-1657, 81 mg tablet, Take 1 tablet by mouth daily., Disp: , Rfl: Calcium Carbonate-Vit D-Min (CALCIUM 1200 PO), Take by mouth 2 times daily., Disp: , Rfl: Celecoxib 200 MG capsule, Take 1 capsule by mouth 2 times daily., Disp: 84 capsule, Rfl: 0 Docusate 100 MG capsule, Take 1 capsule by mouth 2 times daily., Disp: 60 capsule, Rfl: 0 estradiol 0.1 MG/GM cream, Insert vaginally once a week., Disp: , Rfl: Magnesium 400 MG tablet, Take by mouth daily., Disp: , Rfl: metoprolol 25 MG tab regular release, Take 1 tablet by mouth 2 times daily. Takes half of tablet twice a day, Disp: , Rfl: omeprazole [address] capsule, Take 1 capsule by mouth daily., Disp: 30 capsule, Rfl: 0 Potassium 99 MG tablet, Take by mouth daily., Disp: , Rfl: therapeutic multivitamin-minerals tablet, Take 1 tablet by mouth at bedtime., Disp: 30 tablet, Rfl:0 diphenhydrAMINE 25 MG tablet, Take 1 tablet by mouth at bedtime as needed., Disp: , Rfl: Melatonin 10 MG tablet, Take by mouth., Disp: , Rfl: oxyCODONE 5 MG tablet, Take 1-2 tabs po q 4-6 hours prn pain. Wean as tolerated., Disp: 30 tablet, Rfl: 0 Allergies: She is allergic to mobic [meloxicam] and amoxicillin. documented in this [facility]12-12-2023 Miscellaneous Notes* Nursing Notes - Zoila Todd RN - 07/27/2023 3:10 PM EST Discharge instructions given to patient and spouse. Including diagnosis information, new medicationinformation, physical prescriptions, and drain/device handouts. Hemovac and OnQ teaching completed.[id number] given to patient; integrity seal intact. Denies questions at this time. IV and tele removed. Wheeled patient out to front doors to waiting family car. * Nursing Notes - Zoila Todd RN - 07/27/2023 1:49 PM EST AVS, physical prescriptions, continuity of care, and medication information faxed to [facility] at this time. * Nursing Notes - Zoila Todd RN - 07/27/2023 1:08 PM EST No changes noted from previous assessment by this RN except what is detailed in coordinating flow sheets. Patient denies needs at this time. Call light is in reach. * Nursing Notes - Zoila Todd RN - 07/27/2023 7:10 AM EST Patient laying down upon this RN arrival to patient room. Patient alert, respirations even and unlabored. Arouses easily to voice. Routine shift assessment initiated, detailed in coordinated flow sheets. Denies additional needs at this time. Call light is within reach, bed is in the lowest position, side rails up x2, and bed alarm is on. * Nursing Notes - Anita Alston RN - 07/27/2023 5:09 AM EST Pt assessment remains unchanged with any exceptions noted in flowsheets. Ice pack applied to left knee. Pt c/o 5/10 pain to left knee. Scheduled Tylenol and Toradol given - see MAR. Pt denies any further needs at this time. Call light within reach. * Nursing Notes - Anita Alston RN - 07/27/2023 12:03 AM EST Pt assessment remains unchanged with any exceptions noted in flowsheets. Ice pack applied to left knee. Pt c/o 6/10 pain to left knee. Scheduled Tylenol and Toradol given - see MAR. Pt denies any further needs at this time. Call light within reach. * Nursing Notes - Anita Alston RN - 07/26/2023 9:14 PM EST Pt assessment complete and documented in flowsheets. POC reviewed with pt. Ice pack applied to leftknee. Pt denies any pain or needs at this time. Call light within reach. * Nursing Notes - Mary Ward RN - 07/26/2023 1:55 PM EST Patient to procedure at this time. * Nursing Notes - Zoila Todd RN - 07/26/2023 10:00 AM EST Patient arrived to room 3755 at this time. Oriented to room and provided call light. Admission assessment initiated along with initial vital signs and weight. Additional information can be found in coordinating flow sheets. Pre-op prep being done by POST TRONIC MACHINE OPERATOR. No additional needs at this time, call light in reach, side rails up x3, at bedside. * Nursing Notes - Mary Ann Oneill RN - 07/01/2023 2:14 PM EST 07/01/23 1412 Information Source Information Source patient Contact Information Travel Registered Nurse Oncology Name Mary Ann Oneill RN Case Manager's [...] family and friends Initial Discharge Planning DME (TITLE SEARCH MANAGER) Straight cane;Vahid Anticipated discharge disposition Home with Home Health Anticipated Services at Discharge Physical Therapy;Nursing Home CM met with patient this date to discuss post-surgical discharge plans. Patient states that she would like to return home with [facility] and would later like to go to outpatient therapy at [facility] in [place]. Patient has a wheeled walker, instructed to bring with her on the day of surgery. Patient denies any other questions or needs at this time. CM to continue to follow and assist with discharge plans. [facility]* Nursing Notes - Zoila Todd RN - 07/27/2023 3:10 PM EST Discharge instructions given to patient and spouse. Including diagnosis information, new medicationinformation, physical prescriptions, and drain/device handouts. Hemovac and OnQ teaching completed.Nxdm-vc-[id number] given to patient; integrity seal intact. Denies questions at this time. IV and tele removed. Wheeled patient out to front doors to waiting family car. [id number] Nurse Note* Nursing Notes - Zoila Todd RN - 07/27/2023 1:49 PM EST AVS, physical prescriptions, continuity of care, and medication information faxed to [facility] at this time. [facility]* Nursing Notes - Zoila Todd RN - 07/27/2023 1:08 PM EST No changes noted from previous assessment by this RN except what is detailed in coordinating flow sheets. Patient denies needs at this time. Call light is in reach. [facility] [id number] History of Present illness Narrative* Zachary Mcmanus PTA - 07/27/2023 10:03 AM EST 07/27/23 0815 Time In/Out Time In 0815 [...] pattern with no LOB noted and managing TTWBwell on L LE. P able to use bathroom indpendently including standing at sink to wash hands. Pt thenambulated to therapy room for approx 75ft with [...] to sitting in bedside chair with LEs elevatedand ice pack applied to L knee. Call light left within reach. Communication TITLE SEARCH MANAGER provided pt with B axillary crutches and adjusted for proper height Bed Mobility Skill: Supine to Sit, Rehab Eval Level of [place]: Supine/Sit stand-by assist Physical Assist/Nonphysical Assist: Supine/Sit 1 person assist Transfer Skill: Sit To Stand, Rehab Eval [place] (Sit-Stand Transfers) contact guard Physical Assist/Nonphysical Assist: Sit/Stand 1 person assist Weight-Bearing Restrictions: Sit/Stand toe touch weight-bearing Assistive Device For Transfer: Sit/Stand 2 wheeled walker Gait Skills, PT Eval Level of [place]: Gait contact guard Physical Assist/Nonphysical Assist: Gait 1 person assist Weight-Bearing Restrictions: Gait toe touch weight-bearing Assistive Device For Transfer: Gait 2 wheeled walker Gait Distance (10ft, 75ft x2) Gait Analysis, PT Eval Gait Pattern Used swing-to gait Stair Negotiation [place] Level: Stair Negotiation contact guard assist Physical Assist: Stair Negotiation (1 person) Weight-Bearing Restrictions: Stair Negotiation toe touch weight-bearing Assistive Device: Stair Negotiation axillary crutches (Also demonstrated proper technique with navigating curb step with walker with TTWB) Number of stairs 4 Stair Railings no rail Plan Plan for next visit Cont with protocol ex, gentle ROM, and mobility Maintain frequency yes * Mary Ann Oneill RN - 07/27/2023 8:27 AM EST Patient was assessed in [facility] [place] on 07/01/23. Met with patient and spouse for follow up after surgery to discuss discharge plan. Patient to return home with spouse and [facility]. Patient has a wheeled walker and denies any equipment needs at this time. Nursing reports that the incision has been closed with derrick with hemovac in place, will request a 3 week follow up appointment. Patient denies any other questions or needs at this time. Referral sent to [facility], staff confirms start of care for tomorrow. Follow up appointment scheduled for 08/19/22 @ 11:40 am. * VELVET Kan - 07/27/2023 8:14 AM Ursula LEI Progress Note NUTRITION ASSESSMENT: POST-OP ORTHOPEDIC Nutrition [...] (217 lb) 07/15/22 96.6 kg (213 lb) [place] body weight: 52.4 kg (115 lb 8.3 [...] VELVET Kan Registered Dietitian, Licensed Dietitian 07/27/23 * Corin Owen, PT - 07/26/2023 11:27 PM EST 07/26/23 1831 Time In/Out Time In 1831 Time Out 1901 Total Visit Time 30 minutes PT Therapy [...] Supine to Sit, Rehab Eval Level of [place]: Supine/Sit stand-by assist Physical Assist/Nonphysical Assist: Supine/Sit 1 person assist Transfer Skill: Sit To Stand, Rehab Eval [place] (Sit-Stand Transfers) minimum assist (75% patient effort) Physical Assist/Nonphysical Assist: Sit/Stand 1 person assist Weight-Bearing Restrictions: Sit/Stand toe touch weight-bearing Assistive Device For Transfer: Sit/Stand 2 wheeled walker Gait Skills, PT Eval Level of [place]: Gait contact guard Physical Assist/Nonphysical Assist: Gait 1 person assist Weight-Bearing Restrictions: Gait toe touch weight-bearing Assistive Device For Transfer: Gait 2 wheeled walker Gait Distance 5 feet Gait Analysis, PT Eval Gait Pattern Used swing-to gait Balance Additional Documentation (Seated: Good; Standing: Fair-) Sensory Examination Sensory Examination (pt reporting L foot numbness) Plan of Care Interventions Planned Therapy Interventions balance training;edema control;endurance;gait training;ROM;strengthening;stretching;transfer training Additional Comments Pt performed glut sets, [...] Impairments Found (PT Eval) Strength;ROM (range of motion);Balance;Transfers;Gait/Locomotion;Edema;Aerobic capacity/endurance Rehab Potential (PT Eval) good Therapy [...] binder in order to continue with ROM progressionat home. 7. Pt will demonstrate understanding of proper procedures for edema control. * Emmie Richardson, OT - 07/26/2023 7:13 PM EST 07/26/23 1848 Time In/Out Time In 1848 Initial Evaluation/Screen Completed? yes General Information RN [...] Supine to Sit, Rehab Eval Level of [place]: Supine/Sit stand-by assist Physical Assist/Nonphysical Assist: Supine/Sit 1 person assist Transfer Skill: Sit to Stand, Rehab Eval Level of [place]: Sit/Stand contact guard Physical Assist/Nonphysical Assist: Sit/Stand 1 person assist Weight-Bearing Restrictions: Sit/Stand toe touch weight-bearing Assistive Device for Transfer: Sit/Stand wheeled walker Upper Body Dressing Level of [place] independent Physical Assist/Nonphysical Assist set-up required Lower Body Dressing Level of [place] moderate assist (50% patients effort) Physical Assist/Nonphysical [...] numbness in left foot Rehab Potential (OT Eval) good Therapy Frequency 7 times a [...] hygiene training Therapist Information License # [id number] 1. Pt will complete LB dressing MOD I 2. Pt will complete sponge bathing MOD I 3. Pt will complete toileting MOD I 4. Pt will complete hygiene/grooming standing at sink MOD I 5. Pt will complete simulated tub/shower transfer CGA * Agustina Zuluaga RRT - 07/26/2023 6:06 PM EST Patient given and instructed IS by RN. No further questions at this time. * YONATAN Flores - 07/26/2023 4:23 PM EST THIS PATIENT HAS HAD ORTHOPEDIC SURGERY AND IS EXPECTED TO HAVE PAIN REQUIRING NARCOTICS FOR >7 DAYS AND MAY NEED UP TO 12 tabs of oxycodone PER DAY AND THEREFORE 30tabs ARE BEING DISPENSED IN ACCORDANCE WITH POC DISCUSSED WITH DR GARAY. documented in this [facility]12-12-2023 Hospital course Narrative* Elmo Weiss MD - 07/27/2023 7:42 AM EST Images from the original note were not included. Discharge Summary Name: Lilo Reyes Age: 68 y.o. Birthday: 1955 Admit Date: 07/26/2023 8:47 AM Discharge Date: 07/27/2023 Discharge Time: 07/27/2023 Discharge Unit: [facility] Inpatient Rehab unit Unit Length of Stay: [...] 34.0 to 34.9 in adult Prediabetes Colitis snf (current) use of non-steroidal anti-inflammatories (nsaid) Resolved Hospital Problems No resolved problems to display. Brief Summary of Hospital Course for Discharge Summary: This is a 15-year-old female with past medical history of hypertension hyperlipidemia colitis obesity prediabetes admitted to [facility] for left knee revision Dr. Garay July [...] MG CAPS Commonly known as: LYRICA Follow-up: Cuauhtemoc Ly MD [address] [facility] [id number] Follow up in 1 week(s) Braulio Garay MD [address] [facility] [address] Follow up Upcoming Appointments (up to five)-Some appointments for Medical Center outpatient clinics or diagnostic testing locations are not displayed below Provider Department Dept Phone 08/19/2023 11:40 AM [facility] [phone] Total coordination of discharge care taking greater that 35 minutes [facility] [id number] Nurse Note* Nursing Notes - Zoila Todd RN - 07/27/2023 7:10 AM EST Patient laying down upon this RN arrival to patient room. Patient alert, respirations even and unlabored. Arouses easily to voice. Routine shift assessment initiated, detailed in coordinated flow sheets. Denies additional needs at this time. Call light is within reach, bed is in the lowest position, side rails up x2, and bed alarm is on. [employer]12-12-2023 Nurse Note* Nursing Notes - Anita Alston RN - 07/27/2023 5:09 AM EST Pt assessment remains unchanged with any exceptions noted in flowsheets. Ice pack applied to left knee. Pt c/o 5/10 pain to left knee. Scheduled Tylenol and Toradol given - see MAR. Pt denies any further needs at this time. Call light within reach. [employer]12-12-2023 Nurse Note* Nursing Notes - Anita Alston RN - 07/27/2023 12:03 AM EST Pt assessment remains unchanged with any exceptions noted in flowsheets. Ice pack applied to left knee. Pt c/o 6/10 pain to left knee. Scheduled Tylenol and Toradol given - see OCT. Pt denies any further needs at this time. Call light within reach. [facility]12-11-2023 Nurse Note* Nursing Notes - Anita Alston RN - 07/26/2023 9:14 PM EST Pt assessment complete and documented in flowsheets. POC reviewed with pt. Ice pack applied to leftknee. Pt denies any pain or needs at this time. Call light within reach. [facility]12-11-2023 Consult note* Emeka-Jose Raul Weiss MD - 07/26/2023 5:13 PM EST History and Physical Examination 07/26/23 5:13 PM Chief Complaint: Left knee revision History of Present Illness: Patient is a 68 y.o. female presents for [facility] for Left knee revision Dr. Garay July [...] in adult 07/26/2023 Prediabetes 07/26/2023 Colitis 07/26/2023 snf (current) use of non-steroidal anti-inflammatories (nsaid) 07/26/2023 [...] 4 hours as needed for Mild Pain. 07/26/23YONATAN Flores Aspirin [address] tablet [...] capsule by mouth daily. 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 Elmo Weiss MD [facility]12-11-2023 Consult note* Elmo Weiss MD - 07/26/2023 5:13 PM EST History and Physical Examination 07/26/23 5:13 PM Chief Complaint: Left knee revision History of Present Illness: Patient is a 68 y.o. female presents for [facility] for Left knee revision Dr. Garay July [...] in adult 07/26/2023 Prediabetes 07/26/2023 Colitis 07/26/2023 snf (current) use of non-steroidal anti-inflammatories (nsaid) 07/26/2023 [...] 4 hours as needed for Mild Pain. 07/26/23YONATAN Flores Aspirin [address] tablet [...] capsule by mouth daily. (Patient not taking: Reportedon 06/23/2023) More than a month at 9am [...] 34.0 to 34.9 in adult Prediabetes Colitis snf (current) use of non-steroidal anti-inflammatories (nsaid) Status post revision of total replacement of left knee Principal Problem: Status post revision of total replacement of left knee Active Problems: Benign hypertension Mixed hyperlipidemia Class 1 obesity due to excess calories with serious comorbidity and body mass index (BMI) of 34.0 to 34.9 in adult Prediabetes Colitis snf (current) use of non-steroidal anti-inflammatories (nsaid) 1.Status [...] SW. Elmo Weiss MD documented in this [facility]12-11-2023 Nurse Note* Gely Herrera RN - 07/26/2023 4:47 PM EST Patient transferred to room [facility] via bed in stable condition. Report given to ROGER Cummings. Bed left in locked and lowest position with side rails up x3. Ice chips and call light given to patient. Monitors and alarms on and attached to patient. * Vladislav Read RN - 07/26/2023 4:22 PM EST Patient transported to PACU with Arpan MEIER. Reports given to Gely DURAN at 1622H. * Marisa Benavides RN - 07/26/2023 3:01 PM EST OR #4 OR room temp: 66.1F OR room humidity: 40.0% documented in this [facility]12-11-2023 Nurse Surgical operation note* eGly Herrera RN - 07/26/2023 4:47 PM EST Patient transferred to room [facility] via bed in stable condition. Report given to ROGER Cummings. Bed left in locked and lowest position with side rails up x3. Ice chips and call light given to patient. Monitors and alarms on and attached to patient. [facility]12-11-2023 Nurse Surgical operation note* Vladislav Read RN - 07/26/2023 4:22 PM EST Patient transported to PACU with Arpan MEIER. Reports given to Gely RN at 1622H. [facility]12-11-2023 Nurse Surgical operation note* Marisa Benavides RN - 07/26/2023 3:01 PM EST OR #4 OR room temp: 66.1F OR room humidity: 40.0% [facility]12-11-2023 Hospital Discharge instructions* Discharge Instructions* Zoila Todd RN - 07/26/2023 2:07 PM [...] move within 3 days or take action. Carter Hose: > Help reduce the risk of blood clots and decrease swelling > To be worn bilaterally to the lower extremities for 30 days post-op > Patients can take their carter hose off for 1 hour for every 8 hours that they wear them You will be discharged with two pairs of CARTER hose. Gel Ice Packs > Change every [...] also empty the drain anytime it is longterm full. Follow these steps to empty your [...] it may help to put the drain yamile firm flat surface like a table. Do [...] the wound drainage record sheet. If you havemore than one drain, empty, measure and write down the amount of fluid for each drain. Empty the fluid into the toilet, rinse the measuring cup and flush the toilet. If you have more than one drain, repeat steps 3 to 10. Wash your hands well with soap and warm water. Rinse and dry Drain removal Please call Dr. Garay's nurse ([phone]) the morning after discharge with the recorded [...] initial nerve block wears off, you can increaseyour ON-Q to 4 to 6ml per hour [...] ears, blurred vision, mouth or tongue numbness, ora metallic taste. You might feel nervous or confused. If you experience any of these symptoms, clamp the tubing and call the number provided below. If you have questions or concerns call the 24 Hour Product Support Hotline at * Discharge Instr - Activity* Elmo Weiss MD - 07/27/2023 7:42 AM EST As instructed * Discharge Instr - Diet* Elmo Weiss MD - 07/27/2023 7:42 AM EST Resume previous diet * Attachments The following attachments cannot be sent through Care Everywhere. * cephalexin ([place]) documented in this encounterCommunity [facility] Nurse Note* Nursing Notes - Mary Ward RN - 07/26/2023 1:55 PM EST Patient to procedure at this time. [facility]12-11-2023 Nurse Note* Nursing Notes - Zoila Todd RN - 07/26/2023 10:00 AM EST Patient arrived to room 3755 at this time. Oriented to room and provided call light. Admission assessment initiated along with initial vital signs and weight. Additional information can be found in coordinating flow sheets. Pre-op prep being done by POST TRONIC MACHINE OPERATOR. No additional needs at this time, call light in reach, side rails up x3, at bedside. [facility]12-08-2023 Evaluation + Plan noteExtracted from: Title:Pain Managment [...] as needed OARRS reviewed ANN score: 54% [facility]11-16-2023 Nurse Note* Nursing Notes - Mary Ann Oneill RN - 07/01/2023 2:14 PM EST 07/01/23 1412 Information Source Information Source patient Contact Information Travel Registered Nurse Oncology Name Mary Ann Oneill RN Case Manager's [...] family and friends Initial Discharge Planning DME (TITLE SEARCH MANAGER) Straight cane;Walker Anticipated discharge disposition Home with Home Health Anticipated Services at Discharge Physical Therapy;Nursing Home CM met with patient this date to discuss post-surgical discharge plans. Patient states that she would like to return home with [facility] and would later like to go to outpatient therapy at [facility] in [place]. Patient has a wheeled walker, instructed to [...] Appointment Date:07/12/2023 10:00:00 AM Scheduled Provider:Jaci Tee Location:[facility] [place] Appointment Type: Open Appointment Date:07/23/2023 08:45:00 AM Scheduled Provider:Louise Owusu PA-C Location:.[facility] [place] Appointment Type:Pain Management - Follow Up (FT) [facility]11-15-2023 Note [id number]-30-2023 NoteDiagnosis: M54.16, lumbar radiculopathy Procedure: Bilateral [...] and agrees to comply to currently prescribed/recommended therapies.[facility] Comment on above:Result Comment: Electronically Signed By: Juwan Mendez DO.br\Date and Time Signed: 06/30/23 10:25 [id number] Evaluation + Plan note Extracted from: Title:Pain Management * Author:Kya Mendez DO Date:06/10/23 Impression and Plan History, physical [...] Appointment Date:07/12/2023 10:00:00 AM Scheduled Provider:Jaci Tee Location:[facility] Appointment Type: [place] [facility]09-28-2023 Note [id number]:127[facility] 05-12-2023 NoteDiagnosis: M46.1 Procedure: Left diagnostic [...] procedure, and agrees to continue currently prescribed/recommended therapies.[facility] Comment on above:Result Comment: Electronically Signed By: Juwan Mendez DO\Date and Time Signed: 05/12/23 14:17 [id number] History of Present illness Narrative* Lashae Flores [...] 05/06/2023 8:46 AM Patient: Lilo Reyes MR#: [id number] : 1955 Age: 67 y.o. Referring Physician: [...] a left TKA on 08/20/[address] Brcok in [place]. Last evaluated on 03/03/23, history of aspiration, [...] a left total knee revision for optimal shelter management. Her pain is a 9/10 upon [...] TKA on 08/20/[address] Brock in [place]. PLAN: We have discussed in great detail [...] including nasalMRSA screening, scheduling an appointment for [facility] and the potential surgical date, andreviewing and [...] and Dyspepsia Amoxicillin Swelling documented in this encounterCommunity [facility]09-[facility] Evaluation + Plan note Extracted from: Title:Pain [...] with any questions or concerns that arise. [facility]08-18-2023 Evaluation + Plan noteExtracted from: Title:Pain [...] Date:04/28/2023 01:00:00 PM Scheduled Provider:Juwan Mendez DO Location:[facility] Appointment Type:Pain Management - Follow Up (FT) [facility]07-19-2023 History of Present illness Narrative* Lashae [...] 03/03/2023 3:04 PM Patient: Lilo Reyes MR#: [id number] : 1955 Age: 67 y.o. Referring Physician: [...] TKA on 08/20/[address] Brock in [place]. Last evaluated on 07/15/22, aspiration and subsequent injection was administered. The injection worked well for approx three months and aspiration was negative. Recently the pain has returned but is less than before 07/07/22. The pain is locatedon the medial side of knee. She reports she doesn't trust her ambulation, her muscles feel sore andachy. She also reports she follows pain management in [place] for chronic back pain. Her pain is [...] TKA on 08/20/[address] Brock in [place]. PLAN: I have reviewed my findings with [...] Allergen Reactions Amoxicillin Swelling documented in this encounterCommunity [facility]07-07-2023 Evaluation + Plan note Extracted from: Title:Pain [...] Date:04/02/2023 09:45:00 AM Scheduled Provider:Louise Owusu PA-C Location[facility] Appointment Type:Pain Management - Follow Up (FT) [facility]06-07-2023 Evaluation + Plan noteExtracted from: Title:Clinical [...] Date:02/19/2023 10:45:00 AM Scheduled Provider:Louise Owusu PA-C Location:[facility] [place] Appointment Type:Pain Management - Follow Up (FT) Appointment Date:03/25/2023 11:00:00 AM Scheduled Provider:Garrett Dennison MD Location:[facility] Appointment Type:Pain Management - Follow Up (FT) [facility]05-04-2023 Evaluation + Plan noteExtracted from: Title:Clinical [...] Date:03/25/2023 11:00:00 AM Scheduled Provider:Garrett Dennison MD Location:[facility] Appointment Type:Pain Management - Follow Up (FT) [facility]04-05-2023 Evaluation + Plan noteExtracted from: Title:Clinical Document [...] Date:12/17/2022 10:30:00 AM Scheduled Provider:Garrett Dennison MD Location:FT.[facility] Appointment Type:Pain Management - Follow Up (FT) [facility]03-29-2023 Evaluation + Plan noteExtracted from: Title:Clinical Document Author:Pablo Dennison MD y Date:11/11/22 Chief complaint: Left-sided low back pain [...] Appointments Appointment Date:11/18/2022 01:15:00 PM Scheduled Provider: Location:[facility] Appointment Type:Surgery FT Appointment Date:12/17/2022 10:30:00 AM Scheduled Provider:Garrett Dennison MD Location:.[facility] Appointment Type:Pain Management - Follow Up (FT) [facility]03-07-2023 Evaluation note* Encounter Date Diagnosis Assessment Notes [...] of left sacroiliac joint (ICD-10 - M46.1) [employer] Other 11-30-2022 History of Present illness Narrative* Jimenez Campbell LPN - 07/15/2022 9:30 AM EST Ortho Nurse - Patient Intake Room#: 3 Left knee pain of 5, TKA 08-20-21 Dr Brock in [facility], she has been back to him and hesees no problem, she feels like something is behind her knee and she cannot straighten it, an MRI was completed Date: 07/15/2022 10:16 AM Patient: Lilo Reyes MR#: [id number] : 1955 Age: 67 y.o. Referring Physician: [...] []Chair,[]cane, []bracing Are you followed by a corset maker? [] [x] Name: Are you followed by [...] TKA on 08/20/[address] Brock in [place]. She states she feels something is located [...] TKA on 08/20/[address] Brock in [place]. PLAN: I have reviewed my findings with [...] Allergen Reactions Amoxicillin Swelling documented in this encounterCommunity Memorial HospitalEvaluation + Plan note No data available for this section [facility] Future Appointments Appointment Date:04/02/2023 09:45:00 AM Scheduled Provider:Louise Owusu PA-C Location:[facility] Appointment Type:Pain Management - Follow Up (FT) [facility] Future Appointments Appointment Date:07/23/2023 08:45:00 AM Scheduled Provider:Louise Owusu PA-C Location[facility] Appointment Type:Pain Management - Follow Up (FT) [facility] Future Appointments Appointment Date:09/07/2023 09:30:00 AM Scheduled Provider: Location:[facility] Appointment Type:BD Bone Density (FT) Appointment Date:11/11/2023 08:45:00 AM Scheduled Provider: Location:[facility] Surgical Services Appointment Type:Surgery FT Future Scheduled Tests Radiology* BD Bone Density DEXA 09/07/23 [facility] Evaluation + Plan note Future Appointments Appointment Date:11/11/2023 08:45:00 AM Scheduled Provider: Location:[facility] Appointment Type:Surgery FT [facility] Future Appointments Appointment Date:11/11/2023 08:45:00 AM Scheduled Provider: Location:[facility] Surgical Services Appointment Type:Surgery FT Appointment Date:04/10/2024 11:00:00 AM Scheduled Provider: Location:[facility] Appointment Type: Medicare Wellness Subsequent [facility] Future Appointments Appointment Date:04/10/2024 11:00:00 AM Scheduled Provider: Location:[facility] Appointment Type: Medicare Wellness Subsequent [facility]* Diagnosis 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 joint, sequela- Primary documented in this encounter [facility] HospitalEvaluation noteNo assessment information availableSelect Medical [facility] Work Phone: Evaluation note* Diagnosis Left knee pain, unspecified chronicity- Primary 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 joint, initial encounter documented in this encounter [facility]* Diagnosis Chronic pain of left knee- Primary Pain in joint, lower leg documented in this encounter [facility]* Diagnosis Status post revision of total [...] Other and unspecified noninfectious gastroenteritis and colitis snf (current) use of non-steroidal anti-inflammatories (nsaid) documented in this encounter [facility]* Diagnosis Acute pain of left knee- Primary Aftercare following left knee joint replacement surgery Difficulty walking Difficulty in walking Chronic pain of left knee documented in this encounter [facility] Healthcare[facility] note* Diagnosis Acute pain of left knee- Primary Aftercare following left knee joint replacement surgery Difficulty walking Difficulty in walking Chronic pain of left knee documented in this encounter [facility] HealthcareEvaluation note* Diagnosis Acute pain of left knee- Primary Aftercare following left knee joint replacement surgery Difficulty walking Difficulty in walking Chronic pain of left knee documented in this encounter [facility] INC. HealthcareEvaluation note* Diagnosis Hx of total knee arthroplasty, left- [facility] Diagnosis Onset Date Resolution Status Arthropathy of right shoulder acute History of lumbar fusion acu te Inflammation of left sacroiliac joint acute [facility] Work Phone: Evaluation note* Diagnosis Hx of total knee arthroplasty, left- Primary [facility] Diagnosis Onset Date Resolution Status Arthropathy of right shoulder acute History of lumbar fusion acu te Inflammation of left sacroiliac joint acute Chronic pain acute Inflammation of left sacroiliac joint acute Other low back pain acute [facility] Work Phone: History general Narrative - Reported* Type Description Date Medical History anemia Medical History Arthritis Medical History cataracts Medical History diabetes mallitus Medical History gallstones Medical History high blood pressure Medical History obesity Medical History Osteoarthrosis Medical History high cholesterol Surgical History CHOLECYSTECTOMY Surgical History HYSTERECTOMY Surgical History RIGHT KNEE REPLACEMENT Surgical History LEFT KNEE ARTHROSCOPY Surgical History RIGHT SHOULDER Hospitalization History see above [employer] Other Hospital Discharge instructions No data available for this section [facility] instructions[facility]ulatory Orders* Referral to Pain Management Location: [facility] Work Phone: Progress note No data available for this section [facility] (narrative)* Consultation (Routine) - Patient to Arrange Specialty Diagnoses / Procedures Referred By Contac t Referred To Contact Physical Therapy Diagnoses 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 joint, initial encounter Braulio Garay MD [address] [place] [address] Referral ID Status Reason Start Date Expiration Date V isits Requested Visits Authorized [id number] Patient to Arrange 03/03/2023 03/27/2024 1 1 Scheduling Instructions . * Diagnostic X-Ray (Routine) - New Request Specialty Diagnoses / Procedures Referred By Contac t Referred To Contact Diagnoses Left knee pain, unspecified chronicity Procedures XR KNEE LEFT 3 VIEWS Braulio Garay MD [address] [place] [address] Referral ID Status Reason Start Date Expiration Date V isits Requested Visits Authorized [id number] New Request 03/03/2023 03/27/2024 1 1 * Diagnostic X-Ray (Routine) - New Request Specialty Diagnoses / Procedures Referred By Contac t Referred To Contact Diagnoses Left knee pain, unspecified chronicity Procedures XR KNEE LEFT 4+ VIEWS Braulio Garay MD [address] [place] [address] Referral ID Status Reason Start Date Expiration Date V isits Requested Visits Authorized [id number] New Request 02/18/2023 03/14/2024 1 1 [facility] for referral (narrative)* (Routine) Specialty Diagnoses / Procedures Referred By Janneth t Referred To Contact [facility] RE[facility] LOC [address] [place] [address] Referral ID Status Reason Start Date Expiration Date Visits Re quested Visits [facility] Consultation (Routine) - Patient to Arrange Specialty Diagnoses / Procedures Referred By Janneth ravi Referred To Contact Physical Therapy Diagnoses Hx of total knee arthroplasty, left Roni Amaya APRN-CNP [address] [place] [address] Referral ID Status Reason Start Date Expiration Date V isits Requested Visits Authorized [id number] Patient to Arrange 08/19/2023 09/12/2024 1 1 Scheduling Instructions . * Diagnostic X-Ray (Routine) - New Request Specialty Diagnoses / Procedures Referred By Janneth ravi Referred To Contact Diagnoses Hx of total knee arthroplasty, left Procedures XR KNEE LEFT 3 VIEWS Roni Amaya APRN-CNP [address] [place] [address] Referral ID Status Reason Start Date Expiration Date V isits Requested Visits Authorized [id number] New Request 08/17/2023 09/10/2024 1 1 [facility] Summary Purpose Family History No Family History Records Found Relationship Condition Age at Onset Recorded Date/T krunal father Unknown Not Specified Unknown sister Heart disease Unknown Unknown Diabetes mellitus Unknown Relationship Condition Age at Onset Recorded Date/T krunal father Unknown Malignant neoplasm of lung Unknown Myocardial infarction Unknown mother Unknown Malignant neoplasm of cervix Unknown sister Diabetes mellitus Unknown Heart disease Unknown Unknown brother Diabetes mellitus Unknown Advance Directives No Advanced Directives Records FoundDocuments on File Type Date Recorded Patient Stave Hewer Expl anation ACP-Advance Directive ACP-Power of 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 Casting Machine 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 Helper Documents on File Type Date Recorded Patient Stave Hewer Expl anation ACP-Advance Directive ACP-Power of Grid Casting Machine Operator Helper Latest Code Status on File Code Status Date Activated Date Inactivated Comments Full Code 06/27/2020 2:14 PM 06/29/2020 5:39 PM Latest Code Status on File Code Status Date Activated Date Inactivated Comments Full Code 06/27/2020 2:14 PM Advance Directive Response Recorded Date/ Time Advance Directives No September 02, 2018 3:26pm Documents on File Type Date Recorded Patient Stave Hewer Expl anation Advance Directives/Living Will 07/01/2023 1:09 PM Latest Code Status on File Code Status Date Activated Date Inactivated Comments Full Code 07/26/2023 4:18 PM Advance Directive Response Recorded Date/ Time Advance Directives No September 02, 2018 4:26pm Assessments Diagnosis Pre-op examination Preoperative examination, unspecified Diagnosis Pain Generalized pain Diagnosis Post-op pain Other acute postoperative pain Spondylolisthesis of lumbar region Acquired spondylolisthesis Reason for Referral Status Reason Specialty Diagnoses / Procedures Referre d By Contact Referred To Contact Closed Radiology Diagnoses Pain Procedures Fluoro For Surgical Procedures Amilcar Yates MD [address], [address] [place] [address] Specialty Diagnoses / Procedures Referred By Contac t Referred To Contact Diagnoses 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 joint, sequela Procedures XR KNEE LEFT 3 VIEWS Braulio Garay MD [address] [place] [address] Referral ID Status Reason Start Date Expiration Date V isits Requested Visits Authorized [id number] Pending Review 06/26/2022 07/21/2023 1 1 Specialty Diagnoses / Procedures Referred By Contac t Referred To Contact Diagnoses 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 joint, sequela Procedures XR BONE LENGTH STUDY Braulio Garay MD [address] [place] [address] Referral ID Status Reason Start Date Expiration Date V isits Requested Visits Authorized [id number] Pending Review 06/26/2022 07/21/2023 1 1 Reason 11/05/22 @ 10:00am Evaluate and Treat L SI Diagnosis 1 Inflammation of left sacroiliac joint (M46.1) Referral Organization [facility] Ne urosurgery Referring Provider First Name Layne Referring Provider Last Name Lisa Referring Provider Specialty Neurologica l Surgery Referred Organization Unknown Facility Referred Provider Garrett Dennison Referred Provider Specialty Pain Medicin e Referral Priority Routine Referral Appointment Date 2022-11-05 General Notes Milena Escobedo 023 11:40:24 AM >Received today. [facility] Pain Medicine 's office request us to fill out form and fax referral to them and they will review the referral and call patient. Referral was fax Milena Escobedo 10/28/2022 08:31:38 AM >Fax letter for appt update Milena Escobedo 10/29/2022 02:26:19 PM >Received letter back with appt Specialty Diagnoses / Procedures Referred By Janneth ravi Referred To Contact Diagnoses Hx of total knee arthroplasty, left Procedures XR BONE LENGTH STUDY Roni Amaya APRN-[address] [address] Referral ID Status Reason Start Date Expiration Date V isits Requested Visits Authorized [id number] New Request 12/08/2023 01/01/2025 1 1 Specialty Diagnoses / Procedures Referred By Janneth ravi Referred To Contact Diagnoses Hx of total knee arthroplasty, left Procedures XR KNEE LEFT 3 VIEWS Roni Amaya, KIMBER-UPKEEP WORKER [address] [place] [address] Referral ID Status Reason Start Date Expiration Date V isits Requested Visits Authorized [id number] New Request 12/08/2023 01/01/2025 1 1 Discharge Instructions * Discharge Instr - Activity* [...] at most local grocery stores, pharmacies, and chain [employer]-stores. ? If you have any questions about [...] your physician 11) Call your doctor at [phone] for an appointment (or follow up as [...] call OFFICE. The 24- hour phone is [phone] 13) If you are unable to contact your surgeon, in an emergency situation, go to the nearest hospital emergency room. 14)shower wednesday * Attachments The following attachments cannot be sent through Care Everywhere. * fentanyl transdermal (skin patch) (Central [place]) * sulfamethoxazole and trimethoprim (oral/injection) ([place]) * acetaminophen and oxycodone ([place]) documented in this encounter History of Present Illness * Quinn Burns - 06/29/2020 11:19 AM EST Spiritual Care Services Summary of Visit: I met PT and her . They were hindu and have priests and nuns in the family. She had backsurgery done and still struggling. She is hoping to get better and go home. We prayed, I anointed her and both of them received Holy Communion. Spiritual Assessment/Intervention/Outcomes: Encounter Summary Services provided to:: Patient, Patient and family together Referral/Consult From:: Rounding Support System: Spouse, Children, Family members Place of Confucianist: [facility] Continue Visiting: Yes Complexity of Encounter: Moderate Length of Encounter: 30 minutes Spiritual Assessment Completed: Yes Routine Type: Initial Spiritual/Methodist Type: Spiritual support Assessment: Approachable, Calm, Anxious, [...] Active Healthcare Agent Appointed: Healthcare power of civil rights attorney If you are unable to speak for yourself, does your Healthcare Agent or Legal Spokesperson know yourhealthcare wishes?: Yes Values / Beliefs Do you have any ethnic, cultural, sacramental, or spiritual hindu needs you would like us to beaware of while you are in the hospital?: No Care Plan: Spiritual Care Services To reach a personal lines appraiser for emotional and spiritual support, place an EPIC consult request. If a personal lines appraiser is needed immediately, dial 0 and ask to page the on-call personal lines appraiser. * Amilcar Yates MD - 06/29/2020 10:29 AM EST Patient: Lilo Reyes Unit/Bed: N226/N226-01 Date of : 1955 Acct: [id number] Admitting Diagnosis: Spondylolisthesis of lumbar region [M43.16] Admit Date: 06/27/2020 Hospital Day: 2 Current Medications: Scheduled Meds: metoprolol succinate 12.5 mg Oral BID aspirin 81 mg Oral Daily calcium elemental 500 mg Oral Daily gabapentin 300 mg Oral TID tiZANidine 2 mg Oral Nightly estradiol 0.5 g Vaginal Once per day on Wed azelastine HCl 2 spray NOT APPLICABLE BID [...] noted on 2 L oxygen. Awake alert [place] x3 good strength and tones. 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 [...] How much help for eating meals?: None [facility] Inpatient Daily Activity Raw Score: 20 [facility] Inpatient ADL T-Scale Score : 42.03 ADL [...] Individual Minutes Time In: 0850 Time Out: 0905 Minutes: 15 Eval: 15 minutes Electronically signed by: Rachael Payton OTR/L 06/28/2020, 9:23 AM * Jahaira Davidson, PT - 06/28/2020 9:23 AM EST Physical Therapy Med Surg Initial Assessment Facility/Department: [address] NEURO Room: N226/N226-01 NAME: Lilo Reyes : 1955 (64 y.o.) [...] current injury, left knee, initial encounter 12/21/2018 snf (current) use of aspirin 12/21/2018 Age-related osteoporosis [...] Home Equipment: Rolling walker, Cane, Sock aid, Vegetable Loader Machine Operator ADL Assistance: Independent Homemaking Assistance: Independent Homemaking Responsibilities: Yes(shared) Ambulation Assistance: Independent(no AD) Transfer Assistance: Independent Active Polysomnographic Tech: Yes 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 & Hobbies: decorate cakes Additional [...] goals : be able to go home snf goals snf goal 1: Bed mobility with indep termite control servicer goal 2: Functional transfers with indep termite control servicer goal 3: Amb >50ft with 2ww and indep snf goal 4: >/=2 steps with handrail and [facility] (6 CLICK) BASIC MOBILITY [facility] Inpatient Mobility Raw Score : 18 Therapy Time: Individual Time In 0850 Time Out 0905 Minutes 15 Jahaira Davidson, PT, 06/28/20 at 9:24 AM Definitions for [...] and Reason for Visit Chief Complaint m54.50 Chief Complaint f/u after PM Reason for Visit Arthropathy of right shoulder History of lumbar fusion Inflammation of left sacroiliac joint Chief Complaint f/u after PM MULESER REFF BY DR. LAYNE JUSTICE Reason for Visit Arthropathy of right shoulder History of lumbar fusion Inflammation of left sacroiliac joint Chief Complaint f/u after PM MULESER REFF BY DR. LAYNE JUSTICE LUMBAR PAIN LUMBAR PAIN Reason for Visit Arthropathy of right shoulder History of lumbar fusion Inflammation of left sacroiliac joint Chronic pain Inflammation of left sacroiliac joint Other low back pain Additional Source Comments INFORMATION SOURCE (unrecogn ized section and content) DATE CREATED AUTHOR 02/01/2018 [facility] DATE CREATED AUTHOR AUTHOR'S ORGANIZ ATION 06/21/2020 [facility] [place] DATE CREATED AUTHOR AUTHOR'S ORGANIZ ATION [facility] DATE CREATED AUTHOR AUTHOR'S ORGANIZ ATION 03/04/2022 [facility] Specialist DATE CREATED AUTHOR AUTHOR'S ORGANIZ ATION 10/03/2022 [facility] DATE CREATED AUTHOR AUTHOR'S ORGANIZ ATION 12/09/2023 [facility] DATE CREATED AUTHOR AUTHOR'S ORGANIZ ATION 02/08/2024 [facility] Specialists [facility] DATE CREATED AUTHOR AUTHOR'S ORGANIZ ATION 02/11/2024 [facility] DATE CREATED AUTHOR AUTHOR'S ORGANIZ ATION 02/13/2024 [facility] DATE CREATED AUTHOR AUTHOR'S ORGANIZ ATION 02/16/2024 [facility] Reason for Visit (unrecogniz ed section and content) Status Reason Specialty Diagnoses / Procedures Referre d By Contact Referred To Contact Diagnoses Spondylolisthesis Neural foraminal stenosis of cervical spine Degenerative disc disease at L5-S1 level Spondylosis Radiculopathy SPONDYLOLISTHESIS; SPINAL & FORAMINAL STENOSIS, DEGENERATIVE DISC DISEASE; SPONDYLOSIS; RADICULOPATHY Procedures MT LUMBAR SPINE FUSN,POST INTRBDY L4-5 DECOMPRESSION / PLIF (POSTERIOR LUMBAR INTERBODY FUSION). 2 HOURS / 1 C-ARM / CRUZ TABLE / NUVASIVE / SSEP / CELL SAVERS. REQUESTING 1ST CASE (PAT AT [facility]) Amilcar Yates MD [address], [address] [place] [address] [facility] Reason Comments Pain Specialty Diagnoses / Procedures Referred By Contac t Referred To Contact Diagnoses 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 joint, sequela Procedures XR KNEE LEFT 3 VIEWS Braulio Garay MD [address] [place] [address] Referral ID Status Reason Start Date Expiration Date V isits Requested Visits Authorized [id number] Pending Review 06/26/2022 07/21/2023 1 1 Specialty Diagnoses / Procedures Referred By Contac t Referred To Contact Diagnoses Left knee pain, unspecified chronicity Procedures XR KNEE LEFT 4+ VIEWS Braulio Garay MD [address] [place] [address] Referral ID Status Reason Start Date Expiration Date V isits Requested Visits Authorized [id number] New Request 02/18/2023 03/14/2024 1 1 Reason Comments Pain Condition Update Reason Comments Pain Specialty Diagnoses / Procedures Referred By Contac t Referred To Contact Diagnoses 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, 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 [T84.023A] Failed total left knee replacement, initial encounter [T84.093A] Procedures MT REVISE KNEE JOINT REPLACE,ALL PARTS REVISION ARTHROPLASTY KNEE Braulio Garay MD [address] [place] [address] Referral ID Status Reason Start Date Expiration Date Visits Re quested Visits Authorized [id number] 06/08/2023 1 1 Specialty Diagnoses / Procedures Referred By Janneth ravi Referred To Contact Diagnoses Hx of total knee arthroplasty, left Procedures XR KNEE LEFT 3 VIEWS Roni Amaya, KIMBER-UPKEEP WORKER [address] [place] [address] Referral ID Status Reason Start Date Expiration Date V isits Requested Visits Authorized [id number] New Request 08/17/2023 09/10/2024 1 1 Specialty Diagnoses / Procedures Referred By Janneth ravi Referred To Contact Physical Therapy Diagnoses Presence of left artificial knee joint Procedures [place] PHYSICAL THERAPY EVALUATION LOW COMPLEX 20 MINS Roni Amaya MD [address] [place] [address] Raman Silverio, PT [address] [address] Referral ID Status Reason Start Date Expiration Date V isits Requested Visits Authorized [id number] Authorized 08/30/2023 02/26/2024 30 30 Reason Onset Date Comments re: PT today 09/24/2023 She called [facility] still experiencing dizziness and going for bloodwork this morning. She confirmed her next PT on 09/27. Specialty Diagnoses / Procedures Referred By Janneth ravi Referred To Contact Diagnoses Hx of total knee arthroplasty, left Procedures XR BONE LENGTH STUDY Roni Amaya, MECHANICAL INTERN-UPKEEP WORKER [address] [place] [address] Referral ID Status Reason Start Date Expiration Date V isits Requested Visits Authorized [id number] New Request 12/08/2023 01/01/2025 1 1 Reason Comments Follow-up Reason Comments Post Op Visit Care Teams (unrecognized sec tion and content) Team Status: Active Member Role Status Dates Leon Solares MD Primary Care Provider Active Team Status: Inactive Member Role Status Dates Leon Solares MD Primary Care Provider Active S tart: January 06, 2024 End: January 06, 2024 Layne Justice MD Attending Provider Active Star t: January 06, 2024 End: January 06, 2024 Director Home Health Relationship Specialty Start Date End Date Leon Solares MD [address], [place] [address] PCP - General Family Medicine 07/15/22 Director Home Health Relationship Specialty Start Date End Date Leon Solares MD [address], [place] [address] PCP - General Family Medicine 07/15/22 Team Status: Inactive Member Role Status Dates Leon Solares MD Primary Care Provider Active Layne Justice MD Attending Provider Active Director Home Health Relationship Specialty Start Date End Date Leon Solares MD [address], [place] [address] PCP - General Family Medicine 07/15/22 Director Home Health Relationship Specialty Start Date End Date Leon Solares MD [address], [place] [address] PCP - General Family Medicine 07/15/22 Director Home Health Relationship Specialty Start Date End Date Leon Solares MD [address], [place] [address] PCP - General Family Medicine 07/15/22 Director Home Health Relationship Specialty Start Date End Date Cuauhtemoc Ly MD [address] [place] [address] PCP - General Family Medicine 07/26/23 Director Home Health Relationship Specialty Start Date End Date Cuauhtemoc Ly MD [address] [place] [address] PCP - General Family Medicine 07/26/23 Director Home Health Relationship Specialty Start Date End Date Cuauhtemoc Ly MD [address] [place] [address] PCP - [facility] 07/26/23 Director Home Health Relationship Specialty Start Date End Date Cuauhtemoc Ly MD [address] [place] [address] PCP - [facility] 07/26/23 Team Status: Inactive Member Role Status Dates Leon Solares MD Primary Care Provider Active S tart: January 31, 2024 End: January 31, 2024 Beto Patel MD Attending Provider Active Sta rt: January 31, 2024 End: January 31, 2024 Layne Justice MD Referring Provider Active Star t: January 31, 2024 End: January 31, 2024 Director Home Health Relationship Specialty Start Date End Date Cuauhtemoc Ly MD [address] [place] [address] PCP - [facility] 07/26/23 Team Status: Active Member Role Status Dates Cuauhtemoc Ly MD Primary Care Provider Active Team Status: Inactive Member Role Status Dates Beto Patel MD Attending Provider Active Sta rt: February 15, 2024 End: February 15, 2024 Cuauhtemoc Ly MD Primary Care Provider Active Start: February 15, 2024 End: February 15, 2024 Team Status: Active Member Role Status Dates Beto Patel MD Attending Provider, Other Provider Active Start: February 15, 2024 Cuauhtemoc Ly MD Primary Care Provider Active Start: February 15, 2024 Goals (unrecognized section and content) Goals may [...] this section No data available for this sectionGoals may be documented in an alternate sectionGoals may be documented in an alternate section No data available for this section Scheduled Active and Recently Administ ered Medications (unrecognized section and content) Medication Order 07/25/2023 07/26/2023 07/27/2023 acetaminophen (TYLENOL) tablet 1,000 mg 1,000 mg, Oral, EVERY 6 HOURS NON-STANDARD, First dose on Wed07/26/23 at 1900, Until Discontinued, Post-op/Post-Proc 1812 (Given - Provider: Zoila Todd RN) 0003 (Given - Provider: Anita Alston RN)0509 (Given - Provider: Anita Alston RN)1308 (Given - Provider: Zoila Todd RN) Aspirin tablet delayed release 81 mg 81 [...] 0510 ($$New Bag$$ - Provider: Anita Alston, ROGER)1308 ($$New Bag$$ - Provider: Zoila Todd, ROGER) dexAMETHasone (DECADRON) injection 10 mg (COMPLETED) 10 [...] Anita Alston, RN)0509 (Given - Provider: Anita Alston, RN)1106 (Given - Provider: Zoila Todd RN) [...] chew., Indications: Inpt Stress Ulcer Prophylaxis 1358 (MAR Hold - Provider: Automatic Transfer - Reason: Transfer to a Procedural area)1653 (OCT Unhold - Provider: Automatic Transfer)1813 (Given - Provider: Zoila Todd RN) ROPivacaine [...] Todd RN)1356 (Paused - Provider: Arpan Kent MECHANICAL INTERN-ROCK WORKER - Comment: Switch to gravity)1357 (Restarted - Provider: Arpan Kent, MECHANICAL INTERN-ROCK WORKER)1443 ($$New Bag$$ - Provider: Arpan Kent, MECHANICAL INTERN-ROCK WORKER)1600 (Anesthesia Volume Adjustment - Provider: Arpan Kent, MECHANICAL INTERN-ROCK WORKER) Lactated ringers IV solution Intravenous, at 100 mL/hr, CONTINUOUS, Starting on Wed07/26/23 at 1730, Until Wed07/27/23 at 1712 1816 ($$New Bag$$ - Provider : Zoila Todd RN) ROPivacaine (NAROPIN) 0.2% 1,500 mg, On-Q Pump 1 Each Debi-neural, CONTINUOUS, Starting on Wed07/26/23 at 1630, Until Wed07/27/23 at 1712, Recovery to Continue 1645 ($$New Bag$$ - Provider : Gely Herrrea RN) PRN Medication Order 07/25/2023 07/26/2023 07/27/2023 acetaminophen (TYLENOL) tablet 1,000 mg (COMPLETED) 1,000 mg, Oral, ONCE DIRECTED, 1 dose, Starting on Wed07/26/23 at 0936, Until Discontinued, See admin instructions, Administer 1 hour preop., Pre-op/Pre-Proc 1042 (Given - Provider: Ifeoma Todd, ROGER) bisacodyl (DULCOLAX) suppository 10 mg 10 mg, Rectal, DAILY NEEDED, Starting on Wed07/26/23 at 1654, Until Wed07/27/23 at 1712, constipation, Post-op/Post-Proc ceFAZolin (ANCEF) 2 g in dextrose 100 mL premix IVPB (COMPLETED) 2 g, Intravenous, Administer over 15 Minutes, YEAST SUPERVISOR TO PROCEDURE, 1 dose, Starting on Wed07/26/23 at 0936, Until Discontinued, Other, Pre-operative antibiotic, Pre-op/Pre-Proc 1402 (Given - Provider: Leif Kent, MECHANICAL INTERN[employer]OCK WORKER) Celecoxib (CELEBREX) capsule 200 mg (COMPLETED) 200 [...] Wed07/26/23 at 1654, Until Wed07/27/23 at 1712, Sleep, Post-op/Post-Proc FOR RECORDS PERTAINING [...] BE BASED ON THE PRIMARY CLINICAL RECORDS. [facility] [employer] [facility]. provides no warranty or guarantee of the accuracy or completeness of information in this document.
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
[2024-02-16] MEDS: ACETAMINOPHEN 500 MG TABLET 1000 MG PO (23:33)
[2024-02-17 00:11] VITALS: BP 149/67
== END 2024-02-17 00:23 | disposition home or self-care (01) ==
PROVIDERS: Emergency Provider Internal Medicine; PCP Family Medicine
DX: S16.1XXA Strain of muscle, fascia and tendon at neck level, initial encounter (principal); V43.62XA Car passenger injured in collision with other type car in traffic accident, initial encounter; S39.012A Strain of muscle, fascia and tendon of lower back, initial encounter
CPT/HCPCS: 70450; 72125; 72128; 72131; 99285